=== PATIENT | female | born 1955 | race Caucasian/White ===

== ENCOUNTER 2022-01-25 13:40 | Outpatient (CLI) | payer BC, SELFPAY ==
--- NOTE | 2022-01-25 13:40 | CRLHL7_ITS ---
For Patients: As a result of the Century Cures Act, medical imaging exams and procedure reports are released immediately into your electronic medical record. You may view this report before your referring provider. If you have questions, please contact your health care provider. BILATERAL SCREENING MAMMOGRAM WITH COMPUTER-AIDED DETECTION AND TOMOSYNTHESIS TECHNIQUE: CC and MLO views were obtained. These mammographic images have been obtained using full-field digital technique. These mammographic images were interpreted with the benefit of computer-aided detection. Breast Tomosynthesis was used in this interpretation. COMPARISON FILM: 01/16/21, 03/12/18, 08/10/15. FINDINGS: There are scattered areas of fibroglandular density IMPRESSION: There is no radiographic evidence for malignancy. ASSESSMENT: BI-RADS Category 1: Negative RECOMMENDATION: Routine screening mammogram in 1 year. A lay language report of this examination will be provided to the patient. David Sam M.D. Diagnostic Radiologist [email or web address] JUDSON/Dictated by: David Sam MD @ 01/28/2022 1:12:00 PM (Electronically Signed)
--- OUTSIDE RECORDS SUMMARY | 2022-01-25 13:44 | XMS_ITS | Encounter Summary ---
:1955 Author Organization [facility] Address [address] [place] [address]. 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 Painter - 08/24/2010 6:51 PM CDT Patient Status - Diagnosis/Procedure right thyroid lobectomy - Physical status Stable (s/s of potential complications absent or manageable) - Psychosocial status Stable Discharge Planning - Discharge From: [facility] - Patient Care Unit: 5th floor - PCU - Discharge To: Home/Alternative home Discharge Information - Valuables returned Valuables returned - Discharge information Discharge instructions reviewed with pt/family/so - Accompanied by Spouse - Mode of Travel Wheelchair Medications and Prescriptions - Medications and Prescriptions sent to pharmacy Patient declined Prescriptions [place] script, sent back to pharmacy Support Services - Is home care No recommended? - Supplies sent/ordered No - Equipment No sent/ordered - Other Services No arranged Special Care Needs and Instructions - Diet Instructions: as tolerated - Activity as tolerated Instructions: - Report temp if 101 degrees F greater than: - Symptoms/Problems to 1. Swelling at incision site. look for at home- 2. Bleeding at incision site. call the physician 3. Warmth, fever, or tenderness at incision about: site. 4. A sore throat that continues beyond three weeks. 5. Tingling or cramps in the hands, feet, or lips (signs of a problem with the parathyroid glands). 6. If no bowel movement in 3 days try Milk of Magnesia, Fleets enema or another over the counter remedy. - Who patient should Dr. Alba call: - Phone number of [facility] [phone] patient should call: - Is patient going home No with IV Catheter?: Follow Up Care - Physician/clinician Dr. Alba name: - - When to see 2-3 weeks physician/clinician: - Physician/clinician Dr. Rosario name: - - When to see 4-6 weeks physician/clinician: Norma Franco (RN)[Signed 04:23] Authored: Patient Status, Discharge Planning, Discharge Information, Medications and Prescriptions, Support Services, Special Care Needs and Instructions, Follow Up Care EDUARD DE LEÓN (RN)[Signed 10:09] Authored: Patient Status, Discharge Information, Medications and Prescriptions, Special Care Needs and Instructions, Follow Up Care documented in this encounter Plan of Treatment Not on filedocumented as of this encounter Visit Diagnoses Not on filedocumented in this encounter Care Teams Senior Sous Chef Relationship Specialty Start Date End Date Eldon Conway MD PCP - General 07/24/01 02/15/18 [address] [place] [address] documented as of this encounter
--- OUTSIDE RECORDS SUMMARY | 2022-01-25 13:44 | XMS_ITS | Clinical Summary ---
:1955 Author Organization [facility] Address [address] [place] [address] Care Team Providers Name Role Phone Mariaelena Boland Primary Care Provider Allergies Active Allergy Reactions Severity Noted Date Comments No Known Drug Allergies 08/02/2010 Seasonal Allergies 01/31/2003 Medications Medication Sig Dispensed Refills Start Date End Date Status [id number] Nature's Bounty 0 07/10/2010 Active Calcium Plus D - 600mg/500IU. ONE Softgel cap daily. Multiple Vitamin Take 1 tablet 100 tablet 12 08/02/2010 Active (MULTIVITAMIN) per by mouth daily. tablet Bruin-3 Fatty Acids Take 1 capsule 180 capsule 12 08/02/2010 Active 1200 MG capsule by mouth daily. aspirin 81 MG chewable Take 1 tablet 90 tablet 3 07/20/2010 Active tablet by mouth daily. Coenzyme Q10 (COQ10) Take by mouth. 0 08/15/2010 Active 200 MG CAPS azithromycin Two tablets 6 tablet 0 10/22/2010 Acti ve (ZITHROMAX) 250 MG first day, then tabletIndications: one tablet Acute maxillary daily for four sinusitis days pravastatin (PRAVACHOL) Take 1 tablet 30 tablet 3 10/22/2010 Active 20 MG by mouth daily. tabletIndications: Hyperlipidemia LDL goal <160 Active Problems Problem Noted Date Advanced directives, counseling/discussion 10/22/2010 Seasonal allergic rhinitis 10/22/2010 Urine, incontinence, stress female 08/02/2010 Hyperlipidemia LDL goal <160 08/02/2010 Thyroid nodule 11/28/2009 Other symptoms referable to back 09/14/2007 Nonallopathic lesion of sacral region 09/14/2007 Overview: Problem list name updated by automated p rocess. Provider to review Nonallopathic lesion of lower extremities 09/14/2007 Overview: Problem list name updated by automated p rocess. Provider to review Pain in joint, pelvic region and thigh 09/14/2007 Resolved Problems Problem Noted Date Resolved Date CARDIOVASCULAR SCREENING; LDL GOAL LESS THAN 130 04/08/2010 08/02/2010 Encounters Date Type Specialty Care Team Description 11/03/2021 Hospital Encounter Radiology. Mariaelena Boland kaden lump 11/03/2021 Travel from Last 3 Months Immunizations Name Administration Dates Next Due COVID-19,PF,Moderna 12/29/2020, 12/01/2020 Influenza (High Dose) 3 valent 02/15/2021 vaccine Influenza Quad, Recombinant, pf(RIV4) 03/25/2020, 03/16/2019 , 03/12/2018, (Flublok) 04/11/2017 Pneumo Conj 13-V (2010&after) 02/13/2021 Pneumococcal 23 valent 10/25/2021 TD (ADULT, 7+) 12/23/2001 Zoster vaccine recombinant adjuvanted 11/19/2019, 06/14/2019 , 02/01/2016 (SHINGRIX) Family History Medical History Relation Comments Diabetes Father Heart Disease Father heart attack at 76 Alzheimer Disease Mother Depression Mother Osteoporosis Mother Heart Disease Paternal Grandfather heart attack early 50's Relation Status Comments Brother Alive half-brother Daughter Alive Father Maternal Grandfather Maternal Grandmother Mother Paternal Grandfather Paternal Grandmother Son 1 Alive Son 2 Alive Son 3 Alive step-child Social History Tobacco Use Types Packs/Day Years Used Date Never Smoker Smokeless Tobacco: Never Used Alcohol Use Standard Drinks/Week Comments Yes 0 (1 standard drink = 0.6 oz pure alcoho l) socially/rare Alcohol Habits Answer Date Recorded How often do you have a drink containing alcohol? Not asked How many drinks containing alcohol do you have on a Not aske d typical day when you are drinking? How often do you have six or more drinks on one occasion? No t asked Comment: socially/rare 08/02/2010 Sex Assigned at Date Recorded Not on file Last Filed Vital Signs Vital Sign Reading Time Taken Comments Blood Pressure 112/74 10/22/2010 8:37 AM CDT Pulse 81 10/22/2010 8:37 AM CDT Temperature 36.8 ??C (98.3 ??F) 10/22/2010 8:37 AM CDT Respiratory Rate 12 09/04/2010 1:41 PM CDT Oxygen Saturation 97% 10/22/2010 8:37 AM CDT Inhaled Oxygen Concentration - - Weight 64 kg (141 lb) 10/22/2010 8:37 AM CDT Height 157.5 cm (5' 2) 10/22/2010 8:37 AM CDT Body Mass Index 25.79 10/22/2010 8:37 AM CDT Plan of Treatment Health Maintenance Due Date Last Done Comments ANNUAL REVIEW OF HM ORDERS 1955 CT COLONOGRAPHY 1955 FIT-DNA (Cologuard) 1955 FIT 1955 FLEX SIG 1955 HEPATITIS C SCREENING 1973 MAMMO SCREENING 08/02/2012 08/02/2010, 08/02/2010, 09/06/2008, Additional history exists COLONOSCOPY 09/18/2015 09/17/2005 COLORECTAL CANCER SCREENING 09/18/2015 ADVANCE CARE PLANNING 10/23/2015 10/22/2010, 10/22/2010 LIPID 10/23/2015 10/22/2010, 08/02/2010, 11/24/2009, Additional history exists DEXA 02/02/2018 02/02/2003 FALL RISK ASSESSMENT 2020 MEDICARE ANNUAL WELLNESS 2020 08/02/2010, 04/14/2008, VISIT 07/08/2006, Additional history exists COVID-19 Vaccine (3 - 05/31/2021 12/29/2020, 12/29/2020, Booster for Moderna series) 12/01/2020, Addition al history exists PHQ-2 (once per calendar 06/09/2021 year) INFLUENZA VACCINE (#1) 2022 02/15/2021, 02/15/2021, 03/25/2020, Additional history exists DTAP/TDAP/TD IMMUNIZATION 03/26/2022 03/26/2012, 03/26/2012 , (3 - Td or Tdap) 12/23/2001 ZOSTER IMMUNIZATION Completed 11/19/2019, 11/19/2019, 06/14/2019, Additional history exists Pneumococcal Vaccine: 65+ Completed 10/25/2021, 02/13/2021 Years HEPATITIS B IMMUNIZATION Aged Out No long er eligible based on patient 's age to complete this topic IPV IMMUNIZATION Aged Out No longer eligi ble based on patient 's age to complete this topic MENINGITIS IMMUNIZATION Aged Out No longe r eligible based on patient 's age to complete this topic Procedures Procedure Name Priority Date/Time Associated Diagnosis Comme nts CT ABDOMEN PELVIS W Routine 11/03/2021 8:42 AM Abdominal lump Results for this CONTRAST CDT procedure are i n the results section. from Last [address] Abdomen Pelvis w Contrast (11/03/2021 8:42 AM CDT) Anatomical Region Laterality Modality Abdomen/Pelvis, SUBRAD CT BODY, UMP CT ABDOMEN PELVIS, Computed Tomography RAD CT Specimen (Source) Anatomical Collection Method Collection Time Re ceived Time Location / / Volume Laterality 11/03/2021 8:28 AM CDT Impressions 11/03/2021 8:57 AM CDT IMPRESSION: 1. ??Fat-containing ventral hernia above the umbilicus. 2. ??Large volume of retained colonic st ool suggestive of constipation. Narrative 11/03/2021 8:57 AM CDT EXAM: CT ABDOMEN AND PELVIS WITH CONTRAST LOCATION: [facility] DATE/TIME: 11/03/2021, 8:28 AM INDICATION: Abdominal lump. COMPARISON: None. TECHNIQUE: CT scan of the abdomen and pe lvis was performed following injection of IV contrast. Multiplanar reformats were obtained. Dose reduction techniques were used. CONTRAST: 85 mL Isovue 370. FINDINGS: LOWER CHEST: Normal. HEPATOBILIARY: Normal. PANCREAS: Normal. SPLEEN: Normal. ADRENAL GLANDS: Normal. KIDNEYS/BLADDER: No worrisome renal mass or hydronephrosis. BOWEL: Appendix not visualized. Large vo lume of retained colonic stool. No evidence of small bowel obstruction or free air. LYMPH NODES: Normal. VASCULATURE: Unremarkable. PELVIC ORGANS: The uterus is absent. MUSCULOSKELETAL: There is a fat-containi ng ventral hernia above the umbilicus with a 1 cm aperture (series 3, image 75). No destructive bone lesions. Procedure Note Odin Murrieta MD - 11/03/2021Forma tting of this note might be different from the original. EXAM: CT ABDOMEN AND PELVIS WITH CONTRAS T LOCATION: [facility] DATE/TIME: 11/03/2021, 8:28 AM INDICATION: Abdominal lump. COMPARISON: None. TECHNIQUE: CT scan of the abdomen and pe lvis was performed following injection of IV contrast. Multiplanar reformats were obtained. Dose reduction techniques were used. CONTRAST: 85 mL Isovue 370. FINDINGS: LOWER CHEST: Normal. HEPATOBILIARY: Normal. PANCREAS: Normal. SPLEEN: Normal. ADRENAL GLANDS: Normal. KIDNEYS/BLADDER: No worrisome renal mass or hydronephrosis. BOWEL: Appendix not visualized. Large vo lume of retained colonic stool. No evidence of small bowel obstruction or free air. LYMPH NODES: Normal. VASCULATURE: Unremarkable. PELVIC ORGANS: The uterus is absent. MUSCULOSKELETAL: There is a fat-containi ng ventral hernia above the umbilicus with a 1 cm aperture (series 3, image 75). No destructive bone lesions. IMPRESSION: 1. Fat-containing ventral hernia above t he umbilicus. 2. Large volume of retained colonic stoo l suggestive of constipation. 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 [address] [place] [id number]
--- OUTSIDE RECORDS SUMMARY | 2022-01-25 13:44 | XMS_ITS | Encounter Summary ---
:1955 Author Organization [facility] Address [address] [place] [address]. [place] [address] Care Team Providers Name Role Phone Mariaelena Boland Primary Care Provider Encounter Details Date Type Department Care Team Description 11/03/2021 Travel Social History Tobacco Use Types Packs/Day Years [...] Assigned at Date Recorded Not on file COVID-19 Exposure Response Date Recorded In the last 10 days, have you been in contact with No / Unsu re 11/03/2021 8:10 AM CDT someone who was confirmed or suspected to have Coronavirus/COVID-19? documented as of this encounter Plan of Treatment Not on filedocumented as of this encounter Visit Diagnoses Not on filedocumented in this encounter Care Teams Health Program Director Relationship Specialty Start Date End Date Mariaelena Boland PCP - General Internal Medicine 02/16/18 [facility] [address] [place] [address] documented as of this encounter
--- OUTSIDE RECORDS SUMMARY | 2022-01-25 13:44 | XMS_ITS | Encounter Summary ---
:1955 Author Organization [facility] Address [address] [place] [address] Care Team Providers Name Role Phone Eldon Conway MD Primary Care Provider Encounter Details Date Type Department Care Team Description 03/09/2010 Hospital Pathology [facility] Results [address] [place], [place] [address] (Wo rk) Social History Tobacco Use Types Packs/Day Years Used Date Never Smoker Alcohol Use Standard Drinks/Week Comments No 0 (1 standard drink = 0.6 oz pure alcoho l) Sex Assigned at Date Recorded Not on file documented as of this encounter Plan of Treatment Not on filedocumented as of this encounter Procedures Procedure Name Priority Date/Time Associated Diagnosis Comme nts CL AFF SURGICAL Routine 03/09/2010 12:00 AM Resul ts for this PATHOLOGY CDT procedure are i n the results section. documented in this encounter Results Hospital - SURGICAL PATHOLOGY (03/09/2010 12:00 AM CDT) Component Value Ref Test Analysis Performed At [facility] Range Method Time Signature Copath Patient Name: DANIELLE WALDROP COPATH Report MR#: [id number] Specimen #: [id number] Collected: 03/09/2010 Received: 03/09/2010 Reported: 03/12/2010 13:14 Ordering Phy(s): JANINE FISH SPECIMEN(S): Thyroid, lobectomy FINAL DIAGNOSIS: Thyroid lobe, right, raf-thyroidectomy - 1. ?Dominant adenomatoid/hyperplastic nodule. 2. ? No parathyroid tissue identified. 3. ? No evidence of malignancy. Electronically signed out by: Jacob Tang M.D. CLINICAL HISTORY: Atypical FNA. GROSS: The specimen is labeled right thyroid lobe, suture vasques zheng perior pole. ??It consists of an 8 gm thyroid lobe measuring 4.5 x 3 x 1.6 cm. The external surface is smooth. ??The medial paratracheal as pect is inked blue and the surrounding capsular margins are inked black. ? ?Sectioning revealed a mackey, well-circumscribed nodule which appears unen capsulated measuring 1.1 x 1 cm in the mid portion of the sample. ??No other lesions are identified. ??Block 1 - Frozen section registered representative of nodule; block 2 - isthmus margin; block 3 - remainder of nodule; blo ck 4 through 6 - Thyroid submitted from superior to inferior. ??MARITZA/eric INTRAOPERATIVE CONSULTATION: FROZEN SECTION DIAGNOSIS: Right thyroid lobe, hemithyroidectomy - Follicular lesion. ? ?MARITZA MICROSCOPIC: The follicular lesion does not show a well-developed or comp lete capsule and it is composed predominantly of macrofollicular structur es. ??One area within shows slight nuclear irregularity with rare nucl ear grooves, but no nuclear pseudoinclusions. ??These changes would corre late with the FNA findings. ??Features of papillary carcinoma are not iden tified. ??The findings are those of a dominant adenomatoid/hyperplastic no dule. MARITZA/eric 03-12-10 TESTING LAB LOCATION: [address] ??[id number] COLLECTION SITE: Client: [facility] Location: [facility] (R) Specimen (Source) Anatomical Collection Method Collection Time Re ceived Time Location / / Volume Laterality 03/09/2010 03/09/2010 11:0 8 AM CDT Janine Fish MD LABORATORY Performing Organization Address City/State/ZIP Code Phon e Number COPATH documented in this encounter Visit Diagnoses Not on filedocumented in this encounter Care Teams Drum Barker Operator Relationship Specialty Start Date End Date Eldon Conway MD PCP - General 07/24/01 02/15/[address] [facility] [address] documented as of this encounter
--- OUTSIDE RECORDS SUMMARY | 2022-01-25 13:44 | XMS_ITS | Encounter Summary ---
:1955 Author Organization [facility] Address [address] [place] [address]. [place] [address] Care Team Providers Name Role Phone Mariaelena Boland Primary Care Provider Encounter Details Date Type Department Care Team Description 04/08/2020 Travel Social History Tobacco Use Types Packs/Day [...] Exposure Response Date Recorded In the last month, have you been in contact with No / Unsure 04/08/2020 12:12 PM CDT someone who was confirmed or suspected to have Coronavirus / COVID-19? documented as of this encounter Plan of Treatment Not on filedocumented as of this encounter Visit Diagnoses Not on filedocumented in this encounter Care Teams Vertical Roll Operator Relationship Specialty Start Date End Date Mariaelena Boland PCP - General Internal Medicine 02/16/18 [facility] [address] [place] [address] documented as of this encounter
--- OUTSIDE RECORDS SUMMARY | 2022-01-25 13:44 | XMS_ITS | Encounter Summary ---
:1955 Author Organization [place] Address [address] [place] [address] Care Team Providers Name Role Phone Eldon Conway MD Primary Care Provider Reason for Visit Reason Comments RECHECK Encounter Details Date Type Department Care Team Description 04/17/2010 Office Visit [facility] Irma Rosario, Thyro id nodule; [facility] ENGINEERING SCIENTIST S/P partial thyroidectomy; [address] [facility] [address] [place], [place] [address], [address] [place] [address] (Wo rk) Social History Tobacco Use Types Packs/Day Years Used Date Never Smoker Alcohol Use Standard Drinks/Week Comments No 0 (1 standard drink = 0.6 oz pure alcoho l) Sex Assigned at Date Recorded Not on file documented as of this encounter Last Filed Vital Signs Vital Sign Reading Time Taken Comments Blood Pressure 132/76 04/17/2010 3:14 PM PORCELAIN ENAMELING SUPERVISOR Pulse 84 04/17/2010 3:14 PM PORCELAIN ENAMELING SUPERVISOR Temperature - - Respiratory Rate - - Oxygen Saturation - - Inhaled Oxygen Concentration - - Weight 62.1 kg (137 lb) 04/17/2010 3:14 PM PORCELAIN ENAMELING SUPERVISOR Height 156.2 cm (5' 1.5) 04/17/2010 3:14 PM PORCELAIN ENAMELING SUPERVISOR Body Mass Index 25.47 04/17/2010 3:14 PM PORCELAIN ENAMELING SUPERVISOR documented in this encounter Progress Notes Irma Rosario - 04/17/2010 3:17 PM CST Images from the original note were not included. HPI Endocrinology: [facility], [address] [facility] [place] [facility] [address], Ph. [phone] [facility], [facility] [place] [address], Danielle Waldrop is a 54 year old female who is here for follow up of post thyroidectomy 03-09-10 Consult was originally requested by : PCP: Eldon Conway MD Patient Complaints / concerns: none Medications related to Dx, and any side effects: stopped use of her progestin and testosterone creams in Jan. She had noted some excess hair over the summer and since stopping the creams that has gone away. She has also noted some vaginal dryness since stopping the creams. Another very interesting effect after going off the creams is that she find herself laughing much more. She is more giddy and if she has hot flush coming, she feels the laughter effect , and then as the hot flush goes away, then she is done laughing, and stops. Interim course: Post partial thyroidectomy. The pathology was reviewed. This does reveal some inflammatory changes. The microscopic evaluation shows: The follicular lesion does not show a well-developed or complete capsule and it is composed predominantly of macrofollicular structures. ??One area within shows slight nuclear irregularity with rare nuclear grooves, but no nuclear pseudoinclusions. ??These changes would correlate with the FNA findings. ??Features of papillary carcinoma are not identified. ??The findings are those of a dominant adenomatoid/hyperplastic nodule. Impression & PLAN / RECOMMENDATIONS: Assessment: Danielle Waldrop is a 54 year old female who was seen today for follow up consultation and evaluation of thyroid function post partial thyroidectomy. This is further complicated by prior use of progestin and testosterone creams, which she had stopped prior to the surgery, and wants to re-evaluate the levels of the other hormones now that she is off the creams. . Diagnoses for this visit: 241.0B Thyroid nodule V45.89QW S/P partial thyroidectomy 256.1N Hyperandrogenism and Orders Placed This Encounter ??? Comprehensive metabolic panel ??? Tsh ??? T4 free ??? Parathormone intact ??? Testosterone free and total ??? Estrogens total PLAN / Recommendations: 1. Labs as ordered. 2. Will respond as needed to changes noted in the labs. 3. SHE SHOULD HAVE FOLLOW UP THYROID U/S DONE IN ABOUT A YEAR OR EARLIER, GIVEN the NUCLEAR CHANGES. Follow up in 12 month(s), OR SOONER IF NEEDED. Future Issues to Review / Consider: Corresponding Action NA Spent 30 min with the patient in review of the treatment plan, DDX, potential outcomes, and side effects of meds as indicated. Answered questions in detail. ~~~~~~~~~~~~~~~~~~~~~~~~~~SUMMARY~~~~~~~~~~~~~~~~~~~~~~~~~~~~~~~~~~~~~~~~~ Review of Systems Constitutional: Positive for malaise/fatigue. Negative for diaphoresis. Eyes: Negative. Respiratory: Negative. Cardiovascular: Negative. Gastrointestinal: Negative for diarrhea and constipation. Musculoskeletal: Negative for myalgias. Skin: Negative for rash. Neurological: Negative for tremors and headaches. Psychiatric/Behavioral: Negative for depression. The patient is not nervous/anxious and does not have insomnia. Vital signs: BP 132/76 Pulse 84 Ht 1.562 m (5' 1.5) Wt 62.143 kg (137 lb) Estimated Body mass index is 25.47 kg/(m^2) as calculated from the following: Height as of this encounter: 5' 1.5(1.562 m). Weight as of this encounter: 137 lb(62.143 kg). Physical Exam Nursing note and vitals reviewed. Constitutional: She is well-developed, well-nourished, and in no distress. No distress. HENT: Head: Normocephalic and atraumatic. Eyes: Conjunctivae and extraocular motions are normal. Pupils are equal, round, and reactive to light. No scleral icterus. Neck: Normal range of motion. Neck supple. No tracheal deviation present. No thyromegaly present. Scar from thyroidectomy is healing well. No surrounding erythema, No drainage. Cardiovascular: Normal rate, regular rhythm and normal heart sounds. Exam reveals no gallop. No murmur heard. Pulmonary/Chest: Effort normal and breath sounds normal. She has no wheezes. She has no rales. Abdominal: Soft. Bowel sounds are normal. Musculoskeletal: Normal range of motion. She exhibits no edema and no tenderness. Lymphadenopathy: She has no cervical adenopathy. Neurological: She is alert. She has normal reflexes. She displays no tremor. Chvostek sign: Negative Skin: Skin is warm and dry. No rash noted. She is not diaphoretic. No erythema. Psychiatric: Mood and affect normal. Labs and Imaging Studies: Recent Labs Lab Test 01/02/10 1115 11/24/09 1106 04/14/08 1056 ??? TSH 0.88 1.01 0.77 ??? T4 0.96 1.10 -- ??? T3 83 -- -- For assessment, plan and RECOMMENDATIONS, please refer to summary section above, in the beginning ofnote. Irma Rosario MD [facility] (CC: No ref. provider found) (CC: Dr. Eldon Conway MD) ELAIN ENAMELING SUPERVISOR documented in this encounter Nursing Notes 04/17/2010 3:00 PM CST >> RENÉE Anthony Apr 17, 2010 3:17 PM Patient presents with: RECHECK initial BP 132/76 Pulse 84 Ht 1.562 m (5' 1.5) Wt 62.143 kg (137 lb) Estimated Body mass index is 25.47 kg/(m^2) as calculated from the following: Height as of this encounter: 5' 1.5(1.562 m). Weight as of this encounter: 137 lb(62.143 kg).. bp completed using cuff size regular RENÉE BLACK LPN documented in this encounter Plan of Treatment Not on filedocumented as of this encounter Procedures Procedure Name Priority Date/Time Associated Comments Diagnosis TSH Routine 04/17/2010 3:41 PM Thyroid nodul e Results for this PORCELAIN ENAMELING SUPERVISOR S/P partial procedure are i n thyroidectomy the results Hyperandrogenism section. TESTOSTERONE FREE AND Routine 04/17/2010 3:41 PM Thyroid nodule Results for this TOTAL PORCELAIN ENAMELING SUPERVISOR S/P partial procedure are i n thyroidectomy the results Hyperandrogenism section. T4 FREE Routine 04/17/2010 3:41 PM Thyroid nodul e Results for this PORCELAIN ENAMELING SUPERVISOR S/P partial procedure are i n thyroidectomy the results Hyperandrogenism section. PARATHYROID HORMONE Routine 04/17/2010 3:41 PM Thyroid n odule Results for this INTACT PORCELAIN ENAMELING SUPERVISOR S/P partial procedure are i n thyroidectomy the results Hyperandrogenism section. ESTROGENS TOTAL Routine 04/17/2010 3:41 PM Thyroid nodul e Results for this PORCELAIN ENAMELING SUPERVISOR S/P partial procedure are i n thyroidectomy the results Hyperandrogenism section. COMPREHENSIVE Routine 04/17/2010 3:41 PM Thyroid nodul e Results for this METABOLIC PANEL PORCELAIN ENAMELING SUPERVISOR S/P partial procedure ar e in thyroidectomy the results Hyperandrogenism section. documented in this encounter Results Estrogens total (04/17/2010 3:41 PM PORCELAIN ENAMELING SUPERVISOR) Analysis Performed At [facility] logist Time Signature Lab Scanned ESTROGENS, [facility] Result TOTAL-Scan clint Specimen Anatomical Collection Method Collection Time Receive d Time (Source) Location / / Volume Laterality Blood specimen 04/17/2010 3:41 PM 010 3:46 (specimen) PORCELAIN ENAMELING SUPERVISOR PM PORCELAIN ENAMELING SUPERVISOR Irma Rosario NP LAB - BLOOD ORDERABLES Performing Organization Address City/State/ZIP Code Phon e Number [place] (ABNORMAL) Testosterone free and total (04/17/2010 3:41 PM PORCELAIN ENAMELING SUPERVISOR) Component Value Ref Test Analysis Performed At [facility] gist Range Method Time Signature Percent 1.8 1.0 - [facility] Testosterone 3.8 % [facility] LABS Testosterone <10 (L) 14 - 75 [facility] Total ng/dL [facility] Testosterone Unable to calculate due to low value 0.1 - [facility] Free Total testosterone is less than 10 ng/dL. 1.5 [place] ng/dL [place] LAB[facility] Specimen Anatomical Collection Method Collection Time Receive d Time (Source) Location / / Volume Laterality Blood specimen 04/17/2010 3:41 PM 010 3:46 (specimen) PORCELAIN ENAMELING SUPERVISOR PM PORCELAIN ENAMELING SUPERVISOR Irma Rosario NP LAB - BLOOD ORDERABLES Performing Organization Address City/[facility]/ZIP Code Phon e Number [facility] [address] [place], [place] [id number] [place] [address] LABS Parathormone intact (04/17/2010 3:41 PM PORCELAIN ENAMELING SUPERVISOR) athologist Signature Parathyroid 38 12 - 72 [facility] Hormone Intact pg/mL [facility] LABS Specimen Anatomical Collection Method Collection Time Receive d Time (Source) Location / / Volume Laterality Blood specimen 04/17/2010 3:41 PM 010 3:46 (specimen) PORCELAIN ENAMELING SUPERVISOR PM PORCELAIN ENAMELING SUPERVISOR Irma Rosario NP LAB - BLOOD ORDERABLES Performing Organization Address City/[facility]/ZIP Code Phon e Number [facility] [address] [place], [place] [address] [place] [address] LABS T4 FREE (04/17/2010 3:41 PM PORCELAIN ENAMELING SUPERVISOR) athologist Signature T4 Free 0.95 0.70 - 1.85 [place] [facility] ng/dL CLINIC LAB Specimen Anatomical Collection Method Collection Time Receive d Time (Source) Location / / Volume Laterality Blood specimen 04/17/2010 3:41 PM 010 3:46 (specimen) PORCELAIN ENAMELING SUPERVISOR PM PORCELAIN ENAMELING SUPERVISOR Irma Rosario NP LAB - BLOOD ORDERABLES Performing Organization Address City/[facility]/ZIP Code Phon e Number [facility] [address] [place] [address] [facility] TSH (04/17/2010 3:41 PM PORCELAIN ENAMELING SUPERVISOR) athologist Signature TSH 1.92 0.4 - 5.0 [facility] mU/L CLINIC LAB Specimen Anatomical Collection Method Collection Time Receive d Time (Source) Location / / Volume Laterality Blood specimen 04/17/2010 3:41 PM 010 3:46 (specimen) PORCELAIN ENAMELING SUPERVISOR PM PORCELAIN ENAMELING SUPERVISOR Irma Rosario NP LAB - BLOOD ORDERABLES Performing Organization Address City/[facility]/ZIP Code Phon e Number [facility] [address] [place] [address] [facility] (ABNORMAL) Comprehensive metabolic panel (04/17/2010 3:41 PM PORCELAIN ENAMELING SUPERVISOR) P athologist Signature Sodium 147 (H) 133 - 144 [place] mmol/L [facility] LAB Potassium 3.9 3.4 - 5.3 [place] mmol/L [facility] LAB Chloride 105 94 - 109 [place] mmol/L [facility] LAB Carbon Dioxide 27 20 - 32 [place] mmol/L [facility] LAB Anion Gap 14 6 - 17 [place] mmol/L [facility] Glucose 91 60 - 99 [place] mg/dL [facility] LAB Urea Nitrogen 16 7 - 30 [place] mg/dL [facility] Creatinine 0.69 0.52 - [place] 1.04 mg/dL [facility] LAB Comment: New IDMS-traceable calibration beginning 10/08/07 GFR Estimate 89 >60 mL/min/1.7m2 [place] [facility] GFR Estimate If Black >90 >60 mL/min/1.7m2 F [facility] LAB Calcium 9.6 8.5 - 10.4 mg/dL [facility] Bilirubin Total 0.4 0.2 - 1.3 mg/dL [facility] LAB Albumin 4.7 3.9 - 5.1 g/dL [facility] Comment: Reference range changed on 02/08. Protein Total 7.7 6.8 - 8.8 g/dL [facility] Comment: As of 07, reference range reflects plasma specimen type. Alkaline Phosphatase 65 40 - 150 U/L [facility] ALT 31 0 - 50 U/L [place] [facility] LAB AST 27 0 - 45 U/L [facility] CLIN IC LAB Specimen Anatomical Collection Method Collection Time Receive d Time (Source) Location / / Volume Laterality Blood specimen 04/17/2010 3:41 PM 010 3:46 (specimen) PORCELAIN ENAMELING SUPERVISOR PM PORCELAIN ENAMELING SUPERVISOR Irma Rosario NP LAB - BLOOD ORDERABLES Performing Organization Address City/State/ZIP Code Phon e Number [facility] [address] [place] [address] [facility] LAB documented in this encounter Visit Diagnoses Diagnosis Thyroid nodule Nontoxic uninodular goiter S/P partial thyroidectomy Other postprocedural status Hyperandrogenism Other ovarian hyperfunction documented in this encounter Care Teams Virtual Office Assistant Relationship Specialty Start Date End Date Eldon Conway MD PCP - General 07/24/01 02/15/18 [address] [place] [address] documented as of this encounter
--- OUTSIDE RECORDS SUMMARY | 2022-01-25 13:44 | XMS_ITS | Encounter Summary ---
:[address] [place] Address [address] [place] [address] Care Team Providers Name Role Phone Eldon Conway MD Primary Care Provider Reason for Referral Specialty Diagnoses / Procedures Referred By Contact Refer red To Contact Jim Goins MD [facility] [address] [place] [address] Fax: Referral ID Status Reason Start Date Expiration Date Visits Requ ested Visits Authorized Reason for Visit Reason Comments Recheck Medication Cholesterol meds - FASTING Sinus Problem sinus drainage, facial/sinus pain Encounter Details Date Type Department Care Team Description 10/22/2010 Office Visit [facility] Erika Goins irenayes, counseling/discussion (Primary Dx); [facility] [place] MD Michelle Hyperlipidemia LDL goal <160; [address] [facility] Acute maxillary sinusitis; [place], [place] [employer] Seasonal allergic rhinitis [phone] [phone] [place] [address] (Wo rk) Social History Tobacco Use Types [...] ??F) 10/22/2010 8:37 AM CDT Respiratory Rate - - Oxygen Saturation 97% 10/22/2010 8:37 AM CDT Inhaled Oxygen Concentration - - Weight 64 kg (141 lb) 10/22/2010 8:37 AM CDT Height 157.5 cm (5' 2) 10/22/2010 8:37 AM CDT Body Mass Index 25.79 10/22/2010 8:37 AM CDT documented in this encounter Progress Notes Michelle Goins - 10/22/2010 8:58 AM CDT SUBJECTIVE: Danielle Waldrop is a 55 year old female is here for follow up of hyperlipidemia. Pt is on Zocor 20 mg , pt was started on Zocor 20 mg in 07/2010, symptoms of mood swings, sad, crying with medication. Pt did not have symptoms before starting Zocor. Pt has sinus pressure, PND, cough with phlegm yellow in Colour. Pt has cold with yellow nasal drainage. No sob or wheezing. s sinus symptoms . Pt ahs seasonal allergies, not taking any medications. OBJECTIVE: BP 112/74 Pulse 81 Temp(Src) 98.3 ??F (36.8 ??C) (Oral) Ht 5' 2 (1.575 m) Wt 141 lb (63.957kg) BMI 25.79 kg/m2 SpO2 97% HEENT:PERRL, ENT exam shows tender on both maxillary sinuses , normal exam of ears NECK: supple, no enlarged thyroid LUNGS: CTA CVS: S1S2 regular, no murmurs ABD: soft, normal BS, NT ETM: Pulses+, no edema ASSESSMENT/PLAN : V65.49J Advanced directives, counseling/discussion (primary encounter diagnosis) Plan: [facility] REFERRAL 272.4CY Hyperlipidemia LDL goal <160 Comment: pt is fasting today Plan: Lipid panel reflex to direct LDL, ALT, AST Pt had allergy with Zocor causing mood swings Will change to PRAVACHOL 461.0 Acute maxillary sinusitis Plan: azithromycin (ZITHROMAX) 250 MG tablet Fluids, humidifier, vicks vapourizer, sudafed, motrin prn, rest 477.9A Seasonal allergic rhinitis Comment: not well controlleld Plan: Trial of go/claritin for allergies. Follow up in 3 months for hyperlipidemia documented in this encounter Nursing Notes 10/22/2010 8:30 AM CDT >> IVETTE BLANKENSHIP Mon October 22, 2010 8:42 AM Patient presents with: Recheck Medication - Cholesterol meds - FASTING Sinus Problem - sinus drainage, facial/sinus pain Initial BP 112/74 Pulse 81 Temp(Src) 98.3 ??F (36.8 ??C) (Oral) Ht 5' 2 (1.575 m) Wt 141 lb(63.957 kg) BMI 25.79 kg/m2 SpO2 97% Estimated Body mass index is 25.79 kg/(m^2) as calculated from the following: Height as of this encounter: 5' 2(1.575 m). Weight as of this encounter: 141 lb(63.957 kg). BP completed using cuff size regular Ivette Blankenship/BYRON documented in this encounter Plan of Treatment Scheduled Referrals Name Type Priority Associated Diagnoses Order S chedule [facility] Referral Routine Advanced directives, Ord ered: 10/22/2010 REFERRAL counseling/discussion documented as of this encounter Procedures Procedure Name Priority Date/Time Associated Diagnosis Comme nts LIPID REFLEX TO Routine 10/22/2010 9:10 AM Hyperlipidemia LDL goal Results for this DIRECT LDL PANEL CDT <160 procedure a re in the results section. AST Routine 10/22/2010 9:10 AM Hyperlipidemia LDL goa l Results for this CDT <160 procedure are i n the results section. ALT Routine 10/22/2010 9:10 AM Hyperlipidemia LDL goa l Results for this CDT <160 procedure are i n the results section. documented in this encounter Results AST (10/22/2010 9:10 AM CDT) athologist Signature AST 39 0 - 45 U/L [facility] Specimen Anatomical Collection Method Collection Time Receive d Time (Source) Location / / Volume Laterality Blood specimen 10/22/2010 9:10 AM 011 9:12 (specimen) CDT AM CDT Michelle Goins MD LAB - BLOOD ORDERABLES Performing Organization Address City/[facility] Phon e Number [facility] [address] [place] [address] [facility] ALT (10/22/2010 9:10 AM CDT) athologist Signature ALT 45 0 - 50 U/L [facility] Specimen Anatomical Collection Method Collection Time Receive d Time (Source) Location / / Volume Laterality Blood specimen 10/22/2010 9:10 AM 011 9:12 (specimen) CDT AM CDT Michelle Goins MD LAB - BLOOD ORDERABLES Performing Organization Address City/[facility] Phon e Number [facility] [address] [place] [address] [facility] (ABNORMAL) Lipid panel reflex to direct LDL (10/22/2010 9:10 AM CDT) athologist Signature Cholesterol 253 (H) 0 - 200 [facility] mg/dL CLINIC LAB Comment: LDL Cholesterol is the primary guide to therapy. The NCEP recommends further evaluation of: patients with cholesterol greater than 200 mg/dL if additional risk facto rs are present, cholesterol greater than 240 mg/dL, triglycerides greater than 1 50 mg/dL, or HDL less than 40 mg/dL. Triglycerides 120 0 - 150 mg/dL [facility] HDL Cholesterol 72 50 - 110 mg/dL [facility] LDL Cholesterol Calculated 157 (H) 0 - 129 mg/dL [facility] Comment: LDL Cholesterol is the primary guide to therapy: LDL-cholesterol goal in high risk patients is <100 mg/dL and in very high risk patients is <70 mg/dL. VLDL-Cholesterol 24 0 - 30 mg/dL [facility] Cholesterol/HDL Ratio 3.5 0.0 - 5.0 [facility] Specimen Anatomical Collection Method Collection Time Receive d Time (Source) Location / / Volume Laterality Blood specimen 10/22/2010 9:10 AM 011 9:12 (specimen) CDT AM CDT Michelle Goins MD LAB - BLOOD ORDERABLES Performing Organization Address City/State/ZIP Code Phon e Number [facility] [address] [place] [address] [facility] documented in this encounter Visit Diagnoses Diagnosis Advanced directives, counseling/discussi on - Primary Other specified counseling Hyperlipidemia LDL goal <160 Other and unspecified hyperlipidemia Acute maxillary sinusitis Seasonal allergic rhinitis Allergic rhinitis, cause unspecified documented in this encounter Care Teams Trash Hauler Relationship Specialty Start Date End Date Eldon Conway MD PCP - General 07/24/01 02/15/18 [address] [place] [address] documented as of this encounter
--- OUTSIDE RECORDS SUMMARY | 2022-01-25 13:44 | XMS_ITS | Encounter Summary ---
:1955 Author Organization [place] Address [address] [place] [address]. [place] [address] Care Team Providers Name Role Phone Mariaelena Boland Primary Care Provider Reason for Visit Diagnostic Imaging Mammo - Closed Specialty Diagnoses / Procedures Referred By Contact Refer red To Contact Radiology. Diagnoses Visit for screening mammogram [facility] Procedures MA Screening Digital Bilateral [facility] [address] [facility] [address] [place] [address] [place] [address] Phone: Fax: Referral ID Status Reason Start Date Expiration Date Visits Requ ested Visits Authorized [id number] Closed 02/16/2018 02/16/2019 1 1 Encounter Details Date Type Department Care Team Description 02/20/2018 Hospital Encounter [facility] AdrianneFiona (Patient) [facility] Mariaelena [address] [place] [address] [place], [place] [address] [facility] [address] [place], [place] [phone] [address] Social History Tobacco Use Types Packs/Day Years [...] on file documented as of this encounter Medications at Time of Discharge Medication Sig Dispensed Refills Start Date End Date aspirin 81 MG chewable Take 1 tablet by 90 tablet 3 011 tablet mouth daily. azithromycin (ZITHROMAX) Two tablets first 6 tablet 0 10/07 250 MG tabletIndications: day, then one Acute maxillary sinusitis tablet daily for four days Coenzyme Q10 (COQ10) 200 Take by mouth. 0 011 MG CAPS Multiple Vitamin Take 1 tablet by 100 tablet 12 08/02/2010 (MULTIVITAMIN) per tablet mouth daily. Oriska-3 Fatty Acids 1200 Take 1 capsule by 180 capsule 12 MG capsule mouth daily. [id number] Nature's Bounty 0 07/10/2010 Calcium Plus D - 600mg/500IU. ONE Softgel cap daily. pravastatin (PRAVACHOL) 20 Take 1 tablet by 30 tablet 3 MG tabletIndications: mouth daily. Hyperlipidemia LDL goal <160 documented as of this encounter Plan of Treatment Not on filedocumented as of this encounter Visit Diagnoses Not on filedocumented in this encounter Care Teams Assistant Brand Manager Relationship Specialty Start Date End Date Mariaelena Boland PCP - General Internal Medicine 02/16/18 [facility] [address] [place] [address] documented as of this encounter
--- OUTSIDE RECORDS SUMMARY | 2022-01-25 13:44 | XMS_ITS | Encounter Summary ---
:1955 Author Organization [place] Address [address] [place] [address]. [place] [address] Care Team Providers Name Role Phone Mariaelena Boland Primary Care Provider Encounter Details Date Type Department Care Team Description 06/05/2020 Travel Social History Tobacco Use Types Packs/Day [...] been in contact with No / Unsure 06/05/2020 6:33 AM PHOTORESIST CONTACT PRINTER someone who was confirmed or suspected to have Coronavirus / COVID-19? documented as of this encounter Plan of Treatment Not on filedocumented as of this encounter Visit Diagnoses Not on filedocumented in this encounter Care Teams General Handling Supervisor Relationship Specialty Start Date End Date Mariaelena Boland PCP - General Internal Medicine 02/16/18 [facility] [address] [place] [address] documented as of this encounter
--- OUTSIDE RECORDS SUMMARY | 2022-01-25 13:44 | XMS_ITS | Encounter Summary ---
:1955 Author Organization [facility] Address [address] [place] [address] Care Team Providers Name Role Phone Eldon Conway MD Primary Care Provider Reason for Visit Reason Comments Edema bilateral hand swelling and finger joint pain x 1 month, burning sensation in right palm, trigger finger right hand, 4th digit with shooting pain, and dropping things x 3 months Encounter Details Date Type Department Care Team Description 09/04/2010 Office Visit [facility] [place], Stiffness of joint, hand; Clinic [place] MD Michelle Trigger finger [address] [place], [place] [phone] [address] [phone] [address] [facility] [address] [place] [address] (Wo rk) Social History Tobacco Use Types [...] Sign Reading Time Taken Comments Blood Pressure 115/80 09/04/2010 1:41 PM CDT Pulse 87 09/04/2010 1:41 PM CDT Temperature 36.7 ??C (98.1 ??F) 09/04/2010 1:41 PM CDT Respiratory Rate 12 09/04/2010 1:41 PM CDT Oxygen Saturation 98% 09/04/2010 1:41 PM CDT Inhaled Oxygen Concentration - - Weight 62.6 kg (138 lb) 09/04/2010 1:41 PM CDT Height 156.2 cm (5' 1.5) 09/04/2010 1:41 PM CDT Body Mass Index 25.65 09/04/2010 1:41 PM CDT documented in this encounter Progress Notes Michelle Goins - 09/04/2010 2:22 PM CDT SUBJECTIVE: Danielle Waldrop is a 55 year old female is here for rt hand tightness, burning in palm, finger joint pains , worse in am , symptoms improve as day goes. Pain is still persistent in rt hand ring finger. Pt cannot hold pencil, drops things of/on since last 3 months. Pt feels stiffness & tightness in rt hand. Pt usually can lift heavy weights at work with rt hand. Pt has swelling & pain in bothhand joints in am, rt > Lt OBJECTIVE: BP 115/80 Pulse 87 Temp(Src) 98.1 ??F (36.7 ??C) (Oral) Resp 12 Ht 5' 1.5 (1.562 m) Wt 138 lb (62.596 kg) BMI 25.65 kg/m2 SpO2 98% ETM: normal exam of finger joints, no swelling rt hand , there is tenderness base of ring finger in the tendon area of rt hand palm. Normal hand charge authorizer. Normal strength. SKIN: Normal exam NEURO: Normal exam With [place] filament. Normal strength ASSESSMENT/PLAN : 719.54F Stiffness of joint, hand Comment: Rt hand . R/o OA, RA Plan: Erythrocyte sedimentation rate auto, Rheumatoid factor, Antinuclear antibody screen by EIA, X-ray rt Hand G/E 3 vws* Negative x-ray . NSAIDS prn If labs negative. Consider Rheumatology referral if symptoms worsen 727.03B Trigger finger Comment: Rt hand ring finger Plan: X-ray rt Hand G/E 3 vws* Negative x-ray. Consider referral to hand surgeon if symptoms worse follow up if symptoms get worse documented in this encounter Nursing Notes 09/04/2010 1:45 PM CDT >> MALIHA Anthony Sep 04, 2010 1:47 PM Patient presents with: Edema - bilateral hand swelling and finger joint pain x 1 month, burning sensation in right palm, trigger finger right hand, 4th digit with shooting pain, and dropping things x 3 months Initial BP 115/80 Pulse 87 Temp(Src) 98.1 ??F (36.7 ??C) (Oral) Resp 12 Ht 5' 1.5 (1.562 m) Wt 138 lb (62.596 kg) BMI 25.65 kg/m2 SpO2 98% Estimated Body mass index is 25.65 kg/(m^2) as calculated from the following: Height as of this encounter: 5' 1.5(1.562 m). Weight as of this encounter: 138 lb(62.596 kg).. BP completed using cuff size: regular. Maliha Oreilly CMA documented in this encounter Plan of Treatment Not on filedocumented as of this encounter Procedures Procedure Name Priority Date/Time Associated Comments Diagnosis XR HAND RIGHT G/E 3 Routine 09/04/2010 2:29 PM Trigger f audi Results for this VIEWS CDT Stiffness of joint, procedur e are in hand the results section. RHEUMATOID FACTOR Routine 09/04/2010 2:24 PM Stiffness of join t, Results for this CDT hand procedure are i n the results section. ERYTHROCYTE Routine 09/04/2010 2:24 PM Stiffness of joint, Re sults for this SEDIMENTATION RATE CDT hand procedure are in AUTO the results section. ANTINUCLEAR ANTIBODY Routine 09/04/2010 2:24 PM Stiffness of j oint, Results for this SCREEN BY EIA CDT hand procedure are in the results section. documented in this encounter Results X-ray rt Hand G/E 3 vws* (09/04/2010 2:29 PM CDT) Anatomical Region Laterality Modality Hand, Wrist Right Other Specimen (Source) Anatomical Collection Method Collection Time Re ceived Time Location / / Volume Laterality 09/04/2010 2:29 PM CDT Impressions 09/04/2010 2:48 PM CDT HAND G/E 3 VIEWS RIGHT* ??Sep 04, 2010 2 :29:00 PM HISTORY: ??Stiffness. Trigger finger. COMPARISON: ??None. FINDINGS: ??Negative. Michelle Goins MD IMG DIAGNOSTIC IMAGING ORDER CONSTANZA Antinuclear antibody screen by EIA (09/04/2010 2:24 PM CDT) Patholo gist Method Time Signature [place] Screen by <1.0 <1.0 [facility] EIA Interpretation: ??Negative [facility] Specimen Anatomical Collection Method Collection Time Receive d Time (Source) Location / / Volume Laterality Blood specimen 09/04/2010 2:24 PM 011 2:29 (specimen) CDT PM CDT Michelle Goins MD LAB - BLOOD ORDERABLES Performing Organization Address City/[facility]/ZIP Code Phon e Number [facility] [address] LABS Rheumatoid factor (09/04/2010 2:24 PM CDT) P athologist Signature Rheumatoid 10 0 - 14 [facility] Factor IU/mL CAMPUS LABS Specimen Anatomical Collection Method Collection Time Receive d Time (Source) Location / / Volume Laterality Blood specimen 09/04/2010 2:24 PM 011 2:29 (specimen) CDT PM CDT Michelle Goins MD LAB - BLOOD ORDERABLES Performing Organization Address City/[facility]/ZIP Code Phon e Number [facility] [address] LABS Erythrocyte sedimentation rate auto (09/04/2010 2:24 PM CDT) P athologist Signature Sed Rate 10 0 - 30 mm/h [facility] LAB Specimen Anatomical Collection Method Collection Time Receive d Time (Source) Location / / Volume Laterality Blood specimen 09/04/2010 2:24 PM 011 2:29 (specimen) CDT PM CDT Michelle Goins MD LAB - BLOOD ORDERABLES Performing Organization Address City/[facility]/ZIP Code Phon e Number [facility] [id number] [place] [address] [facility] LAB documented in this encounter Visit Diagnoses Diagnosis Stiffness of joint, hand Stiffness of joint, not elsewhere classi fied, hand Trigger finger Trigger finger (acquired) documented in this encounter Care Teams Race Car Mechanic Relationship Specialty Start Date End Date Eldon Conway MD PCP - General 07/24/01 02/15/18 [address] [place] [address] documented as of this encounter
--- OUTSIDE RECORDS SUMMARY | 2022-01-25 13:44 | XMS_ITS | Encounter Summary ---
:1955 Author Organization [facility] Address [address] [place] [address] Care Team Providers Name Role Phone Eldon Conway MD Primary Care Provider Reason for Visit Reason Comments Urinary Problem stress incont Encounter Details Date Type Department Care Team Description 09/19/2010 Office Visit [facility] for Oseas Pierson, Urine, incontinence, Bladder Control - MD stress female [address] (Primary Dx) [address] [place] [address] (Wo rk) [phone] Social History Tobacco Use Types Packs/Day Years [...] Sign Reading Time Taken Comments Blood Pressure 136/80 09/19/2010 2:09 PM CDT Pulse 80 09/19/2010 2:09 PM CDT Temperature - - Respiratory Rate - - Oxygen Saturation - - Inhaled Oxygen Concentration - - Weight - - Height - - Body Mass Index - - documented in this encounter Progress Notes Oseas Pierson - 09/19/2010 2:57 PM CDT Danielle Waldrop is a 55 year old female for incont. Consult from Dr Escamilla. Onset of incont many yrs ago with 3 vag deliveries, had hyster 1993, persistent incont, seen by about 10 yrs ago, was told that things had stretched and recommended surgery; pt was not ready for surgery at that point, tried Kegel's and electric kegel's with no signif improvement. Now leaks with activity, has caused her to stop running. No pad unless she exercises. Voids q hr to minimize incont. Dry at nite with occais nocturia. No signif UTI's. Not on HRT. Daily BM. Moderate fluids, mostly tea but one bag gets 6 glasses. Works in [employer], Past Surgical History Procedure Date ??? C nonspecific procedure 1997 partial hysterectomy ??? Colonoscopy completed in 2005 ??? Telesales Representative surgery 1997 Partial Hysterectomy because of prolapsed uterus. ??? Ent surgery 03/09/10 Thyroidectomy; Right half removed. Past Medical History Diagnosis Date ??? MEDICAL HISTORY OF - POLYSONSOGRAPHY NEG IN ??? Thyroid nodule 11/2009 s/p biopsy shows atypia Current outpatient prescriptions:Coenzyme Q10 (COQ10) 200 MG CAPS, Take by mouth., Disp: , Rfl: ; simvastatin (ZOCOR) 20 MG tablet, Take 1 tablet by mouth At Bedtime., Disp: 90 tablet, Rfl: 3; [id number], Nature's Bounty Calcium Plus D - 600mg/500IU. ONE Softgel cap daily., Disp: , Rfl: ; Multiple Vitamin (MULTIVITAMIN) per tablet, Take 1 tablet by mouth daily., Disp: 100 tablet, Rfl: 12 [place]-3 Fatty Acids 1200 MG capsule, Take 1 capsule by mouth daily., Disp: 180 capsule, Rfl: 12; aspirin 81 MG chewable tablet, Take 1 tablet by mouth daily., Disp: 90 tablet, Rfl: 3 Physical Exam: GENL: NAD. ABD: Soft, non-tender, no masses. EG: Well-estrogenized, no masses. VAGINA: Well-estrogenized, no masses. BN HYPERMOBILITY: Moderate. CYSTOCELE: Minimal. APICAL PROLAPSE: None. RECTOCELE: Minimal. BIMANUAL: No mass or tenderness. Cysto: (Informed consent obtained. Pause for cause performed) PVR: Nil MUCOSA: Normal without lesion ORIFICES: Normal location and morphology CAPACITY: 400 cc; no pain with filling Valsalva: Mild hypermobility, mild leakage noted. Results for orders placed in visit on 09/19/10 URINE MACROSCOPIC ONLY Component Value Range ??? Color Urine Yellow ??? Appearance Urine Clear ? ? Glucose Urine Negative > NEG (mg/dL) ? ? Bilirubin Urine Negative > NEG ? ? Ketones Urine Negative > NEG (mg/dL) ? ? Specific [place] Urine <=1.005 1.003 - 1.035 ? ? Blood Urine Trace (*) > NEG ??? pH Urine 6.0 5.0 - 7.0 (pH) ? ? Protein Albumin Urine Negative > NEG (mg/dL) ??? Urobilinogen Urine 0.2 0.2 - 1.0 (EU/dL) ? ? Nitrite Urine Negative > NEG ? ? Leukocyte Esterase Urine Trace (*) > NEG ??? Source Midstream Urine IMP: 1. Mixed UI, hypermobility, very bothersome 2. S/p hyster 3. Very healthy PLAN: 1. Discussed situation with patient in detail. 2. SLING DISCUSSION: We discussed the patients situation in detail including her specific anatomy and conditions. Diagrams are drawn. We discussed the surgical treatment including pubovaginal sling utilizing mesh material. We addressed the technical aspects of the procedure as well as the potential risks and complications incuding, but not limited to bleeding, infection, damage to organs or other injury. We discussed the recovery process and the potential effect on sexual function in detail. She also understands the alternative forms of therapy (including no therapy and treatment without mesh), and the potential need for additional therapy. We discussed the FDA report on the use of surgical mesh. All questions are answered in detail. Informed consent is obtained. Consent form signed. Handout given. 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 3. UDS prior 4. Sixty minutes spent with patient, more than 50% in counseling and coordination of care. 5. Copy Dr Conway documented in this encounter Plan of Treatment Not on filedocumented as of this encounter Procedures Procedure Name Priority Date/Time Associated Comments Diagnosis URINE MACROSCOPIC Routine 09/19/2010 2:05 PM Urine, Resu lts for this ONLY CDT incontinence, procedure are in stress female the results section. documented in this encounter Results (ABNORMAL) Urine macroscopic only (09/19/2010 2:05 PM CDT) [facility] Method Time Signature Color Urine Yellow [facility] Appearance Urine Clear [facility] Glucose Urine Negative NEG mg/dL [facility] Bilirubin Urine Negative NEG [facility] Ketones Urine Negative NEG mg/dL [facility] Specific [place] <=1.005 1.003 - [place] Urine 1.035 [facility] Blood Urine Trace (A) NEG [facility] pH Urine 6.0 5.0 - 7.0 [place] pH [facility] Protein Albumin Negative NEG mg/dL [place] Urine [facility] Urobilinogen 0.2 0.2 - 1.0 [place] Urine EU/dL [facility] Nitrite Urine Negative NEG [facility] Leukocyte Trace (A) NEG [place] Esterase Urine [facility] Source Midstream [place] Urine [facility] Specimen Anatomical Collection Method Collection Time Receive d Time (Source) Location / / Volume Laterality Urine specimen 09/19/2010 2:05 PM 011 2:06 (specimen) CDT PM CDT Oseas Pierson MD LAB - URINE ORDERABLES Performing Organization Address City/State/ZIP Code Phon e Number [facility] documented in this encounter Visit Diagnoses Diagnosis Urine, incontinence, stress female - Kristal julián Female stress incontinence documented in this encounter Care Teams Sales And Training Specialist Relationship Specialty Start Date End Date Eldon Conway MD PCP - General 07/24/01 02/15/18 [address] [place] [address] documented as of this encounter
--- OUTSIDE RECORDS SUMMARY | 2022-01-25 13:44 | XMS_ITS | Encounter Summary ---
:1955 Author Organization [facility] Address [address] [place] [address] Care Team Providers Name Role Phone Eldon Conway MD Primary Care Provider Reason for Visit Reason Comments Pre-Op Exam EKG done 11/24/09. Pre Visit Planning - Done Encounter Details Date Type Department Care Team Description 03/05/2010 Office Visit [facility] [place] Preop Gene ral Physical Exam (Primary Dx); Clinic [place] MD Michelle Screening Mammogram [address] [place], [place] [phone] [place] [address] (Wo rk) Social History Tobacco Use Types Packs/Day Years Used Date Never Smoker Alcohol Use Standard Drinks/Week Comments No 0 (1 standard drink = 0.6 oz pure alcoho l) Sex Assigned at Date Recorded Not on file documented as of this encounter Last Filed Vital Signs Vital Sign Reading Time Taken Comments Blood Pressure 96/60 03/05/2010 10:21 AM CDT Pulse 74 03/05/2010 10:21 AM CDT Temperature 37.1 ??C (98.8 ??F) 03/05/2010 10:21 AM CDT Respiratory Rate 12 03/05/2010 10:21 AM CDT Oxygen Saturation 98% 03/05/2010 10:21 AM CDT Inhaled Oxygen Concentration - - Weight 61.2 kg (135 lb) 03/05/2010 10:21 AM CDT Height 156.2 cm (5' 1.5) 03/05/2010 10:21 AM CDT Body Mass Index 25.09 03/05/2010 10:21 AM CDT documented in this encounter Progress Notes Charlotte Zuniga - 02/27/2010 10:51 AM CDT [place] [id number] PRE-OP EVALUATION: Today's date: 03/05/2010 Danielle Waldrop (: 1955) presents for pre-operative evaluation assessment as requested by Dr. Alba. She requires evaluation and anesthesia risk assessment prior to undergoing surgery/procedure for treatment of thyroid nodule removal . Proposed procedure: partial thyroidectomy, possible complete thyroidectomy Date of Surgery/ Procedure: 03/09/10 Time of Surgery/ Procedure: 10:00am Hospital/Surgical Facility: [facility] Primary Physician: Dr Conway Type of Anesthesia Anticipated: General History of anesthesia complications: NONE History of abnormal bleeding: NONE History of blood transfusions: NO Patient has a Health Care Directive or Living Will: NO PREOP QUESTIONNAIRE 1- NO - Do you ever have any pain or discomfort in your chest? 2- NO - Have you ever had a severe pain across the front of your chest lasting for half an hour or more? 3- NO - Do you have swelling in your feet or ankles at times? 4- NO - Are you troubled by shortness of breath when: walking on the level/ up a slight hill/ at night? 5- NO - Does your chest ever sound wheezy or whistling? 6- NO - Do you currently have a cold, bronchitis or other respiratory infection? 7- NO - Have you had a cold, bronchitis or other respiratory infection within the last 2 weeks? 8- NO - Do you usually have a cough? 9- NO - Do you sometimes get pains in the calves of your legs when you walk? 10-NO - Do you or anyone in your family have previous history of blood clots? 11-NO - Do you or does anyone in your family have serious bleeding problem such as prolonged bleeding following surgeries or cuts? 12-NO - Have you ever had problems with anemia or been told to take iron pills? 13-NO - Have you had any abnormal blood loss such as black, tarry or bloody stools, or abnormal vaginal bleeding? 14-NO - Have you or any of your relatives ever had problems with anesthesia? 15-YES - Do you snore or stop breathing at night? Pt reports she snores and stops breathing at times; Sleep Apnea test done 2002 or 2002. 16-NO - Do you have any prosthetic heart valves or joints? 17-NO - Is there any chance that you may be ? Maliha Oreilly CMA HPI: See problem list for active medical problems. Problems all longstanding and stable, except as noted/documented. See ROS for pertinent symptoms related to these conditions. . Patient Active Problem List Diagnoses Date Noted ??? Thyroid Nodule [241.0B] 11/28/2009 ??? OTHER BACK SYMPTOMS [724.8] 09/14/2007 ??? SOMAT DYSFUNC SACRAL REG [739.4] 09/14/2007 ??? SOMAT DYSFUNC LOWER EXTR [739.6] 09/14/2007 ??? JOINT PAIN-PELVIS [719.45] 09/14/2007 Past Medical History Diagnosis Date ??? MEDICAL HISTORY OF - POLYSONSOGRAPHY NEG IN ??? Thyroid Nodule 11/2009 Past Surgical History Procedure Date ??? Nonspecific procedure hysterectomy Current outpatient prescriptions Medication Sig ??? VITAMIN D 1000 UNIT PO CAPS 2 capsules daily OTC products: none Allergies Allergen Reactions ??? Seasonal Allergies Latex Allergy: NO History Substance Use Topics ??? Tobacco Use: Never ??? Alcohol Use: No History Drug Use No REVIEW OF SYSTEMS: C: NEGATIVE for fever, chills, change in weight INTEGUMENTARY/SKIN: NEGATIVE for worrisome rashes, moles or lesions E/M: NEGATIVE for ear, mouth and throat problems NECK: positive for rt thyroid nodule, FNA showed atypia . Pt is having thyroid surgery R: NEGATIVE for significant cough or SOB CV: NEGATIVE for chest pain, palpitations or peripheral edema GI: NEGATIVE for nausea, abdominal pain, heartburn, or change in bowel habits : pt had partial hysterectomy in 1997 MUSCULOSKELETAL: NEGATIVE for significant arthralgias or myalgia NEURO: NEGATIVE for weakness, dizziness or paresthesias ENDOCRINE: NEGATIVE for temperature intolerance, skin/hair changes HEME/ALLERGY/IMMUNE: NEGATIVE for bleeding problems PSYCHIATRIC: NEGATIVE for changes in mood or affect EXAM: There were no vitals taken for this visit. GENERAL APPEARANCE: healthy, alert and no distress EYES: Eyes grossly normal to inspection, PERRL and conjunctivae and sclerae normal HENT: ear canals and TM's normal and nose and mouth without ulcers or lesions NECK: no adenopathy, no asymmetry, masses, or scars and thyromegaly approximately 2-3 times normal, rt thyroid enlarged , non tender RESP: lungs clear to auscultation - no rales, rhonchi or wheezes CV: regular rate and rhythm, normal S1 S2, no S3 or S4 and no murmur, click or rub LYMPHATICS: normal ant/post cervical and supraclavicular nodes ABDOMEN: soft, nontender, no HSM or masses and bowel sounds normal MS: extremities normal- no gross deformities noted SKIN: no suspicious lesions or rashes NEURO: Normal strength and tone, sensory exam grossly normal, mentation intact and speech normal PSYCH: mentation appears normal and affect normal/bright DIAGNOSTICS: Preop Testing 11/24/2009: EKG: Normal Sinus Rhythm, normal axis, normal intervals, no acute ST/T changes c/w ischemia, no LVH by voltage criteria, unchanged from previous tracings HB: 13.8 gm/dl IMPRESSION: Reason for surgery/procedure: Rt thyroid nodule , s/p FNA showing atypia The proposed surgical procedure is considered LOW risk. For above listed surgery and anesthesia: Patient is at LOW risk for surgery/procedure and perioperative/procedure complications. RECOMMENDATIONS: --Approval given to proceed with proposed procedure, without further diagnostic evaluation. Signed Electronically by: Betina oGins MD Copy of this evaluation report is provided to requesting physician. Preop Guidelines documented in this encounter Nursing Notes 03/05/2010 10:00 AM CDT >> MALIHA OREILLY FriMar 05, 2010 12:32 PM Preop with EKG faxed to [facility]. Maliha Oreilly CMA >> MALIHA OREILLY FriMar 05, 2010 10:33 AM Patient presents with: Pre-Op Exam - EKG done 11/24/09. Pre Visit Planning - Done Initial BP 96/60 Pulse 74 Temp(Src) 98.8 ??F (37.1 ??C) (Oral) Resp 12 Ht 5' 1.5 (1.562 m) Wt 135 lb (61.236 kg) SpO2 98% Estimated Body mass index is 25.10 kg/(m^2) as calculated from thefollowing: Height as of this encounter: 5' 1.5(1.562 m). Weight as of this encounter: 135 lb(61.236 kg).. BP completed using cuff size: regular. Maliha Oreilly CMA documented in this encounter Plan of Treatment Not on filedocumented as of this encounter Procedures Procedure Name Priority Date/Time Associated Comments Diagnosis HCL HEMOGLOBIN Routine 03/05/2010 10:46 AM Preop General Resul ts for this NONLAB CDT Physical Exam procedure are in the results section. documented in this encounter Results HGB (03/05/2010 10:46 AM CDT) P athologist Signature Hemoglobin 13.8 11.7 - 15.7 [facility] g[facility]dL [facility] Specimen Anatomical Collection Method Collection Time Receive d Time (Source) Location / / Volume Laterality 03/05/2010 10:46 03/05/2010 AM CDT 10:48 AM CDT Michelle Goins MD LABORATORY Performing Organization Address City/State/ZIP Code Phon e Number [facility] [address] [place] [address] [facility] documented in this encounter Visit Diagnoses Diagnosis Preop general physical exam - Primary Other specified pre-operative examinatio n Screening mammogram Other screening mammogram documented in this encounter Care Teams Family And Consumer Education Teacher Relationship Specialty Start Date End Date Eldon Conway MD PCP - General 07/24/01 02/15/18 [address] [place] [address] documented as of this encounter
--- OUTSIDE RECORDS SUMMARY | 2022-01-25 13:44 | XMS_ITS | Encounter Summary ---
:1955 Author Organization [facility] Address [address] [place] [id number] Care Team Providers Name Role Phone Eldon Conawy MD Primary Care Provider Reason for Visit Reason Onset Date Comments Results 08/03/2010 Encounter Details Date Type Department Care Team Description 08/03/2010 Telephone [facility] Michelle Quan MD Results [place] [id number] [place] [address] [phone] (Wo rk) Social History Tobacco Use Types [...] on file documented as of this encounter Miscellaneous Notes Telephone Encounter - Trixie Bolivar - 08/03/2010 2:27 PM CST Called and spoke with Danielle. Informed her of message below. She would like rx sent to [facility]. Will recheck labs in 3-6 months/ Trixie Bolivar RN PROCESSOR OPERATOR Telephone Encounter - CaylacatieMichelle - 08/03/2010 1:29 PM CST Please inform pt : pt has high total & bad cholesterol , recommend to start taking simvastatin 20 mg low dose. Recommend to watch fat in diet, exercise 3-4 times a week. Gave RX to [facility] in [place] Pt was working 2 jobs until lately, but now resigned one job, she wants to focus on diet, exercise But still would recommend to start on Simvastatin low dose , as pt makes life style changes, will recheck labs in 3-6 months. If numbers show good improvement, will wean off medication eventually. All other labs look good, still waiting for vit d labs please send copy of labs along with letter Betina Goins M.D PROCESSOR OPERATOR documented in this encounter Plan of Treatment Not on filedocumented as of this encounter Visit Diagnoses Diagnosis Hyperlipidemia LDL goal <160 - Primary Other and unspecified hyperlipidemia documented in this encounter Care Teams Heel Turner Relationship Specialty Start Date End Date Eldon Conway MD PCP - General 07/24/01 02/15/18 [address] [place] [address] documented as of this encounter
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
--- OUTSIDE RECORDS SUMMARY | 2022-01-25 13:44 | XMS_ITS | Encounter Summary ---
:1955 Author Organization [facility] Address [address] [place] [address] Care Team Providers Name Role Phone Eldon Conway MD Primary Care Provider Encounter Details Date Type Department Care Team Description 03/09/2010 Operative Report [facility] Janine Fish, (Cargo Mate) [facility] Results [address] [place] [address] (Wo rk) Social History Tobacco Use Types Packs/Day Years Used Date Never Smoker Alcohol Use Standard Drinks/Week Comments No 0 (1 standard drink = 0.6 oz pure alcoho l) Sex Assigned at Date Recorded Not on file documented as of this encounter Progress Notes Janine Fish - 03/12/2010 9:53 AM CDT FINAL PREOPERATIVE DIAGNOSIS: Right thyroid nodule, atypical. POSTOPERATIVE DIAGNOSIS: Right thyroid nodule, atypical. PROCEDURE: Right thyroid lobectomy. ANESTHESIA: General. PREOPERATIVE MEDICATIONS: Ancef 1 gram IV. SURGEON: Janine Fish MD RETAIL EVENT AND SALES ASSISTANT: RUBINA Lucas INDICATIONS: Danielle Waldrop is a 54-year-old female who was found to have a right thyroid nodule when she underwent workup of palpitations. This nodule was 1.1 cm but an FNA showed atypia and for thisreason, she was recommended for a lobectomy, possible total thyroidectomy. PROCEDURE: The patient was placed supine, head and neck in extension and a bump between the scapulae. Transverse cervical neck creases had been marked in the preinduction area and the one most suitable was utilized for exposure. Superior and inferior skin flaps were raised. Midline fascia opened and reflected to the right. Upper pole was taken down by double ligation and division. There was a pyramidal lobe also arising from the upper pole which was followed up to its most cephalad extent. Middle thyroidal vein was then ligated, the gland reflected medially. The inferior parathyroid was on a pedicle and partially beneath the capsule of the thyroid lobe. Meticulous dissection preserved it on its vascular pedicle with good viability. The superior parathyroid was also seen and preserved as was the recurrent laryngeal nerve on the right side. The posterior dissection was meticulously done with carefor preserving those structures and once the dissection continued across the anterior trachea, the gl and was divided through the isthmus and submitted for frozen section. The nodule was in the posterior cleft and was grossly quite small and smooth. 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 Closure was with running 3-0 Vicryl for the midline fascia, interrupted for platysma and 4-0 subcuticular Monocryl for skin. The patient was transferred to recovery in good condition. ESTIMATED BLOOD LOSS: Less than 10 mL. INTRAOPERATIVE FINDINGS: 1. Follicular lesion, benign by frozen section, right thyroid lobe. 2. Both right parathyroids and the right recurrent laryngeal nerve seen and preserved. Electronically signed on 03/12/2010 09:52 by JANINE FISH MD MT: [id number] Name: DANIELLE WALDROP MRN: [id number] Account: [id number] : 1955 Procedure Date: 03/09/2010 Document: [id number] documented in this encounter Plan of Treatment Not on filedocumented as of this encounter Visit Diagnoses Not on filedocumented in this encounter Care Teams Star Route Mail Driver Relationship Specialty Start Date End Date Eldon Conway MD PCP - General 07/24/01 02/15/18 [address] [place] [address] documented as of this encounter
--- OUTSIDE RECORDS SUMMARY | 2022-01-25 13:44 | XMS_ITS | Encounter Summary ---
:1955 Author Organization [facility] Address [address] [place] [address] Care Team Providers Name Role Phone Eldon Conway MD Primary Care Provider Encounter Details Date Type Department Care Team Description 03/09/2010 Historic Results INTERFACED REPORT Interface, Jose L aldana MD Social History Tobacco Use Types Packs/Day Years Used Date Never Smoker Alcohol Use Standard Drinks/Week Comments No 0 (1 standard drink = 0.6 oz pure alcoho l) Sex Assigned at Date Recorded Not on file documented as of this encounter Plan of Treatment Not on filedocumented as of this encounter Procedures Procedure Name Priority Date/Time Associated Diagnosis Comme nts EKG 12 LEAD Routine 03/09/2010 9:17 AM Results f or this CDT procedure are i n the results section . documented in this encounter Results EKG 12 LEAD (03/09/2010 9:17 AM CDT) Component Value Ref Range Test Analysis Performed Pathologis t Method Time At Signature Ventricular Rate 68 BPM RADIOLOGY RESULTS Atrial Rate 68 BPM RADIOLOGY RESULTS NC Interval 92 ms RADIOLOGY RESULTS QRS Duration 84 ms RADIOLOGY RESULTS QT 414 ms RADIOLOGY RESULTS QTc 440 ms RADIOLOGY RESULTS P [place] 19 degrees RADIOLOGY RESULTS R AXIS 0 degrees RADIOLOGY RESULTS T [place] 32 degrees RADIOLOGY RESULTS Interpretation Sinus rhythm with short NC RADIOLOGY ECG Cannot rule out Anterior infarct , age undetermined RESULTS Abnormal ECG Unconfirmed report - interpretation of this ECG is compute r generated - see medical record for final interpretation Specimen Anatomical Collection Method Collection Time Receive d Time (Source) Location / / Volume Laterality 03/09/2010 9:17 AM 0 8:33 CDT AM CDT Transcripton Interface ECG ORDERABLES Performing Organization Address City/State/ZIP Code Phon e Number RADIOLOGY RESULTS documented in this encounter Visit Diagnoses Not on filedocumented in this encounter Care Teams Nuclear Instructor Relationship Specialty Start Date End Date Eldon Conway MD PCP - General 07/24/01 02/15/18 [address] [place] [address] documented as of this encounter
--- OUTSIDE RECORDS SUMMARY | 2022-01-25 13:44 | XMS_ITS | Encounter Summary ---
:1955 Author Organization [facility] Address [address] [place] [address] Care Team Providers Name Role Phone Eldon Conway MD Primary Care Provider Reason for Referral Referral not Required - Closed Specialty Diagnoses / Procedures Referred By Contact Refer red To Contact Diagnoses Urine, incontinence, stress female Michelle Goins MD [facility] [employer] [address] [place] [address] [place] [address] Fax: Phone: Fax: Referral ID Status Reason Start Date Expiration Date Visits Requ ested Visits Authorized [id number] Closed 08/02/2010 08/02/2010 1 1 ECT ADMINISTRATOR Reason for Visit Reason Comments Physical with pap; last pap 04/14/08 - nil; PT had partial hysterectomy after 1991 because of prolapsed uterus; PT IS FASTING. Encounter Details Date Type Department Care Team Description 08/02/2010 Office Visit [facility], Screening for osteoporosis; Clinic Cathy Martinez MD Routine gynecological examination; [address] [place] [address] Routine physical examination ; [place], [place] [facility] Urine, incontinence, stress female; [id number] [address] Hyperlipidemia LDL goal <[address] [place] [address] (Wo rk) Social History Tobacco Use Types [...] Sign Reading Time Taken Comments Blood Pressure 102/64 08/02/2010 9:38 AM PROJECT ADMINISTRATOR Pulse 76 08/02/2010 9:38 AM PROJECT ADMINISTRATOR Temperature 36.6 ??C (97.8 ??F) 08/02/2010 9:38 AM PROJECT ADMINISTRATOR Respiratory Rate 12 08/02/2010 9:38 AM PROJECT ADMINISTRATOR Oxygen Saturation 96% 08/02/2010 9:38 AM PROJECT ADMINISTRATOR Inhaled Oxygen Concentration - - Weight 61.7 kg (136 lb) 08/02/2010 9:38 AM PROJECT ADMINISTRATOR Height 156.8 cm (5' 1.75) 08/02/2010 9:38 AM PROJECT ADMINISTRATOR Body Mass Index 25.08 08/02/2010 9:38 AM PROJECT ADMINISTRATOR documented in this encounter Maliha Farley - 08/02/2010 9:42 AM CST CC: Danielle Waldrop is an 55 year old woman who presents for preventive health visit. Pt is here for physical, pap . Pt is , has 3 kids & 1 step kid. Besides routine health maintenance, she has no other health concerns today . Pt is working hard with2 jobs, not taking care of diet & exercise, now resigned one job, wants to focus on diet & exercise. Healthy Habits: Do you get at least three servings of calcium containing foods daily (dairy, green leafy vegetables,etc.)? yes Outside of work or daily activities, how many days per week do you exercise for 30 minutes or longer? NONE Have you had an eye exam in the past two years? no Do you see a dentist twice per year? no Staff Signature Maliha Oreilly CMA PHQ-2 Over the last two weeks- Have you been bothered by little interest or pleasure in doing things? No Over the last two weeks- Have you been feeling down, depressed, or hopeless? No Abuse: Current or Past(Physical, Sexual or Emotional)- No Do you feel safe in your environment - Yes History Substance Use Topics ??? Smoking status: Never Smoker ??? Smokeless tobacco: Never Used ??? Alcohol Use: Yes socially/rare The patient does not drink >3 drinks per day nor >7 drinks per week. Reviewed orders with patient. Reviewed health maintenance and updated orders accordingly - Yes Staff Signature Maliha Oreilly CMA History of abnormal Pap smear: No. pt had partial hysterectomy in 1997 for prolapsed uterus All Histories reviewed and updated in [facility]. ROS: C: NEGATIVE for fever, chills, change in weight I: NEGATIVE for worrisome rashes, moles or lesions E: NEGATIVE for vision changes or irritation ENT: NEGATIVE for ear, mouth and throat problems, positive for partial thyroidectomy for thyroid nodule in 03/2010 , sees java software engineer Dr Rosario, not on supplements. R: NEGATIVE for significant cough or SOB B: NEGATIVE for masses, tenderness or discharge CV: NEGATIVE for chest pain, palpitations or peripheral edema GI: NEGATIVE for nausea, abdominal pain, heartburn, or change in bowel habits : NEGATIVE for unusual urinary or vaginal symptoms. No vaginal bleeding. Pt had partial hysterectomy, pt has urine leaking with running or jumping after hysterectomy in 1997 . M: NEGATIVE for significant arthralgias or myalgia N: NEGATIVE for weakness, dizziness or paresthesias E: NEGATIVE for temperature intolerance, skin/hair changes H: NEGATIVE for bleeding problems P: NEGATIVE for changes in mood or affect OBJECTIVE: BP 102/64 Pulse 76 Temp(Src) 97.8 ??F (36.6 ??C) (Oral) Resp 12 Ht 5' 1.75 (1.568 m) Wt 136 lb (61.689 kg) SpO2 96% GENERAL APPEARANCE: healthy, alert and no distress EYES: Eyes grossly normal to inspection, PERRL and conjunctivae and sclerae normal HENT: ear canals and TM's normal, nose and mouth without ulcers or lesions, oropharynx clear and oral mucous membranes moist NECK: no adenopathy, no asymmetry, masses, or scars and thyroid normal to palpation RESP: lungs clear to auscultation - no rales, rhonchi or wheezes BREAST: normal without masses, tenderness or nipple discharge and no palpable axillary masses or adenopathy CV: regular rate and rhythm, normal S1 S2, no S3 or S4, no murmur, click or rub, no peripheral edemaand peripheral pulses strong ABDOMEN: soft, nontender, no hepatosplenomegaly, no masses and bowel sounds normal (female): stable post hysterectomy changes, grade II cystocele present , normal female external genitalia, vaginal mucosal atrophy noted and normal cervix, adnexae, and uterus without masses or abnormal discharge MS: no musculoskeletal defects are noted and gait is age appropriate without ataxia SKIN: no suspicious lesions or rashes NEURO: Normal strength and tone, sensory exam grossly normal, mentation intact and speech normal PSYCH: mentation appears normal and affect normal/bright COUNSELING: regular exercise weight management healthy diet/nutrition Osteoporosis Prevention/Bone Health self breast exam ATP III Guidelines ICSI Preventive Guidelines ASSESSMENT/PLAN: V82.81A Screening for osteoporosis Comment: pt is taking calcium + vit d supplements Plan: Dexa hip/pelvis/spine* Recommend 1500 mg of calcium + vit d 1000 IU daily V72.31 Routine gynecological examination Comment: Normal exam Plan: PAP imaged thin layer screen Pap every 5 yrs if normal V70.0F Routine physical examination Comment: normal exam Plan: Dexa hip/pelvis/spine*, Lipid panel reflex to direct LDL, Comprehensive metabolic panel, TSH with free T4 reflex, CBC with platelets, PAP imaged thin layer screen, Vitamin D deficiency screening Discussed about diet, excercise, monthly breast exam, yearly physical Pt is willing to exercise more frequently 625.6T Urine, incontinence, stress female Comment: worse with running Plan: UROLOGY ADULT REFERRAL Avoid caffine 272.4CY Hyperlipidemia LDL goal <160 Comment: not on medciations Plan: Lipid panel reflex to direct LDL Discussed low fat, low carb diet, regular exercise Pt is interested to exercise more now with diet. ECT ADMINISTRATOR documented in this encounter Nursing Notes 08/02/2010 9:15 AM CST >> MALIHA OREILLY Doris Aug 02, 2010 9:42 AM Patient presents with: Physical - with pap; last pap 04/14/08 - nil; PT had partial hysterectomy after 1991 because of prolapsed uterus; PT IS FASTING. Initial BP 102/64 Pulse 76 Temp(Src) 97.8 ??F (36.6 ??C) (Oral) Resp 12 Ht 5' 1.75 (1.568 m) Wt 136 lb (61.689 kg) SpO2 96% Estimated Body mass index is 25.08 kg/(m^2) as calculated from the following: Height as of this encounter: 5' 1.75(1.568 m). Weight as of this encounter: 136 lb(61.689 kg).. BP completed using cuff size: regular. Maliha Oreilly CMA documented in this encounter Plan of Treatment Scheduled Referrals Name Type Priority Associated Diagnoses Order S chedule UROLOGY ADULT REFERRAL Referral Routine Urine, incontinenc e, Ordered: 08/02/2010 stress female documented as of this encounter Procedures Procedure Name Priority Date/Time Associated Diagnosis Comme nts PAP IMAGED THIN LAYER Routine 08/02/2010 10:11 Routine gynecol ogical Results for this SCREEN AM PROJECT ADMINISTRATOR examination procedure are in Routine physical the results examination section. VITAMIN D DEFICIENCY Routine 08/02/2010 10:11 Routine physical Results for this SCREENING AM PROJECT ADMINISTRATOR examination procedure are i n the results section. TSH WITH FREE T4 Routine 08/02/2010 10:11 Routine physical Res ults for this REFLEX AM PROJECT ADMINISTRATOR examination procedure are i n the results section. LIPID REFLEX TO Routine 08/02/2010 10:11 Routine physical Resu lts for this DIRECT LDL PANEL AM PROJECT ADMINISTRATOR examination procedure are in Hyperlipidemia LDL the resul ts goal <160 section. COMPREHENSIVE Routine 08/02/2010 10:11 Routine physical Result s for this METABOLIC PANEL AM PROJECT ADMINISTRATOR examination procedure ar e in the results section. CBC WITH PLATELETS Routine 08/02/2010 10:11 Routine physical R esults for this AM PROJECT ADMINISTRATOR examination procedure are i n the results section. documented in this encounter Results Vitamin D deficiency screening (08/02/2010 10:11 AM PROJECT ADMINISTRATOR) Component Value Ref Test Analysis Performed At [facility] gist Range Method Time Signature 25 OH Vit D2 <5 ug/L [facility] 25 [place] Vit D3 45 ug/L [facility] 25 OH Vit D <50 30 - 75 [facility] total Season, race, dietary intake, and treatm ent affect the concentration of ug/L [place] [id number] D. Values may decrease during brandy er months and increase [facility] during summer months. Values less than 30 ug/L may indicate Vitamin D deficiency. Specimen Anatomical Collection Method Collection Time Receive d Time (Source) Location / / Volume Laterality Blood specimen 08/02/2010 10:11 1 (specimen) AM PROJECT ADMINISTRATOR 10:12 AM PROJECT ADMINISTRATOR Michelle Goins MD LAB - BLOOD ORDERABLES Performing Organization Address City/State/ZIP Code Phon e Number [address] LABS PAP imaged thin layer screen (08/02/2010 10:11 AM PROJECT ADMINISTRATOR) Component Value Ref Test Analysis Performed At [facility] Range Method Time Signature PAP NIL COPATH Copath Report COPATH Patient Name: DANIELLE WALDROP MR#: [id number] Specimen #: [id number] Collected: 08/02/2010 Received: 08/03/2010 Reported: 08/06/2010 14:37 Ordering Phy(s): MICHELLE GOINS SPECIMEN/STAIN PROCESS: Pap imaged thin layer prep screening (Surepath, FocalPoint w ith guided screening) ? Pap-Cyto x 1, Reflex HPV x 1 SOURCE: Vaginal ---- Pap imaged thin layer prep screening (Surepath, FocalPoint with guided screening) SPECIMEN ADEQUACY: Satisfactory for evaluation. -Transitional zone component could not be determined due to atrophy. CYTOLOGIC INTERPRETATION: Negative for Intraepithelial Lesion or Malignancy Electronically signed out by: CHEKO Hernandez (ASCP) Processed and screened at [facility] CLINICAL HISTORY: Partial Hysterectomy, Previous normal pap Date of Last Pap: 04/14/08, Papanicolaou Test Limitations: ??Cervical cytology is a scre ening test with limited sensitivity; regular screening is critical for cancer prevention; Pap tests are primarily effective for the diagnosis/prevention of squamous cell carcinoma, not adenoca rcinomas or other cancers. TESTING LAB LOCATION: [address] ??[id number] COLLECTION SITE: Client: ??[facility] Location: [facility] (R) Specimen (Source) Anatomical Collection Method Collection Time Re ceived Time Location / / Volume Laterality Cytologic 08/02/2010 10:11 08/03/2010 material AM PROJECT ADMINISTRATOR 10:53 AM PROJECT ADMINISTRATOR (specimen) Michelle Goins MD LAB - OPTIME CLINICAL SPECIM EN Performing Organization Address City/[facility]/ZIP Code Phon e Number COPATH CBC with platelets (08/02/2010 10:11 AM PROJECT ADMINISTRATOR) athologist Signature WBC 6.5 4.0 - 11.0 [place] 10e9/L [facility] RBC Count 4.47 3.8 - 5.2 [place] 10e12/L [facility] Hemoglobin 14.0 11.7 - [place] 15.7 g/dL [facility] Hematocrit 42.0 35.0 - [place] 47.0 % [facility] MCV 94 78 - 100 [place] fl [facility] MCH 31.3 26.5 - [place] 33.0 pg [facility] MCHC 33.3 31.5 - [place] 36.5 g/dL [facility] RDW 12.6 10.0 - [place] 15.0 % [facility] Platelet Count 257 150 - 450 [place] 10e9/L [facility] Specimen Anatomical Collection Method Collection Time Receive d Time (Source) Location / / Volume Laterality Blood specimen 08/02/2010 10:11 1 (specimen) AM PROJECT ADMINISTRATOR 10:12 AM PROJECT ADMINISTRATOR Michelle Goins MD LAB - BLOOD ORDERABLES Performing Organization Address City/[facility]/ZIP Code Phon e Number [facility] [id number] [place] [phone] [facility] TSH with free T4 reflex (08/02/2010 10:11 AM PROJECT ADMINISTRATOR) athologist Signature TSH 1.81 0.4 - 5.0 [place] mU/L [facility] Specimen Anatomical Collection Method Collection Time Receive d Time (Source) Location / / Volume Laterality Blood specimen 08/02/2010 10:11 1 (specimen) AM PROJECT ADMINISTRATOR 10:12 AM PROJECT ADMINISTRATOR Michelle Goins MD LAB - BLOOD ORDERABLES Performing Organization Address City/State/ZIP Code Phon e Number [facility] [address] [place] [address] [facility] Comprehensive metabolic panel (08/02/2010 10:11 AM PROJECT ADMINISTRATOR) P athologist Signature Sodium 144 133 - 144 [place] mmol/L [facility] LAB Potassium 4.6 3.4 - 5.3 [place] mmol/L [facility] Chloride 105 94 - 109 [place] mmol/L [facility] Carbon Dioxide 29 20 - 32 [place] mmol/L [facility] Anion Gap 10 6 - 17 [place] [place] mmol/L [facility] Glucose 93 60 - 99 [place] mg/dL [facility] LAB Urea Nitrogen 24 7 - 30 [place] [place] mg/dL [facility] LAB Creatinine 0.77 0.52 - [facility] [place] 1.04 mg/dL CLINIC LAB Comment: New IDMS-traceable calibration beginning 10/08/07 GFR Estimate 78 >60 mL/min/1.7m2 [facility] GFR Estimate If Black >90 >60 mL/min/1.7m2 [facility] [place] [facility] Calcium 9.6 8.5 - 10.4 mg/dL [facility] Bilirubin Total 0.6 0.2 - 1.3 mg/dL [facility] Albumin 4.6 3.3 - 4.9 g/dL [facility] Comment: Reference range changed on 02/08. Protein Total 7.7 6.8 - 8.8 g/dL [facility] Comment: As of 07, reference range reflects plasma specimen type. Alkaline Phosphatase 71 40 - 150 U/L [facility] ALT 20 0 - 50 U/L [facility] [place] [facility] AST 27 0 - 45 U/L [facility] [place] [facility] LAB Specimen Anatomical Collection Method Collection Time Receive d Time (Source) Location / / Volume Laterality Blood specimen 08/02/2010 10:11 1 (specimen) AM PROJECT ADMINISTRATOR 10:12 AM PROJECT ADMINISTRATOR Michelle Goins MD LAB - BLOOD ORDERABLES Performing Organization Address [facility] Code [facility] e Number [address] [address] [facility] (ABNORMAL) Lipid panel reflex to direct LDL (08/02/2010 10:11 AM PROJECT ADMINISTRATOR) athologist Signature Cholesterol 287 (H) 0 - 200 [facility] mg/dL CLINIC LAB Comment: LDL Cholesterol is the primary guide to therapy. The NCEP recommends further evaluation of: patients with cholesterol <200 mg/dL if additional risk factors are present, cholesterol >240 mg/dL, triglycerides >150 mg/dL, or HDL <40 mg/dL. Triglycerides 104 0 - 150 mg/dL [facility] HDL Cholesterol 66 50 - 110 mg/dL [facility] LDL Cholesterol Calculated 200 (H) 0 - 129 mg/dL [facility] Comment: LDL Cholesterol is the primary guide to therapy: LDL-cholesterol goal in high risk patients is <100 mg/dL and in very high risk patients is <70 mg/dL. VLDL-Cholesterol 21 0 - 30 mg/dL [facility] Cholesterol/HDL Ratio 4.4 0.0 - 5.0 [facility] Specimen Anatomical Collection Method Collection Time Receive d Time (Source) Location / / Volume Laterality Blood specimen 08/02/2010 10:11 1 (specimen) AM PROJECT ADMINISTRATOR 10:12 AM PROJECT ADMINISTRATOR Michelle Goins MD LAB - BLOOD ORDERABLES Performing Organization Address City/[facility]/ZIP Code Phon e Number [facility] [address] [place] [address] [phone] [facility] documented in this encounter Visit Diagnoses Diagnosis Screening for osteoporosis Special screening for osteoporosis Routine gynecological examination Routine physical examination Routine general medical examination at a health care facility Urine, incontinence, stress female Female stress incontinence Hyperlipidemia LDL goal <160 Other and unspecified hyperlipidemia documented in this encounter Care Teams Pediatrician/Medical Doctor Relationship Specialty Start Date End Date Eldon Conway MD PCP - General 07/24/01 02/15/18 [address] [place] [address] documented as of this encounter
--- OUTSIDE RECORDS SUMMARY | 2022-01-25 13:44 | XMS_ITS | Encounter Summary ---
:1955 Author Organization [facility] Address [address] [place] [address] Care Team Providers Name Role Phone Eldon Conway MD Primary Care Provider Reason for Visit Reason Onset Date Comments Thyroid Problem 05/01/2010 Encounter Details Date Type Department Care Team Description 05/01/2010 Telephone [facility] Irma Carter NP Thyroid Problem [facility] [address] [place] [address] [phone] Social History Tobacco Use Types Packs/Day Years Used Date Never Smoker Alcohol Use Standard Drinks/Week Comments No 0 (1 standard drink = 0.6 oz pure alcoho l) Sex Assigned at Date Recorded Not on file documented as of this encounter Miscellaneous Notes Telephone Encounter - Whitney Sutton - 05/02/2010 10:10 AM CST Detailed message left for pt E THEATER MANAGER Telephone Encounter - Irma Rosario - 05/01/2010 10:52 PM CST Yes , of course, for any wound, or surgical complication she should call the surgery clinic. I'll respond to the labs. Irma Rosario MD [facility] E THEATER MANAGER Telephone Encounter - Chris October - 05/01/2010 8:38 AM CST Patient calling, partial thyroidectomy 03/09/10, yesterday noticed red area 2 1/2 wide above surgical scar, no pain, no drainage, not itchy, Asking what she should do-call surgeon? Also asking for lab results from recent lab tests please advise E THEATER MANAGER documented in this encounter Plan of Treatment Not on filedocumented as of this encounter Visit Diagnoses Not on filedocumented in this encounter Care Teams Reactor Technician Relationship Specialty Start Date End Date Eldon Conway MD PCP - General 07/24/01 02/15/18 [address] [place] [address] documented as of this encounter
--- OUTSIDE RECORDS SUMMARY | 2022-01-25 13:44 | XMS_ITS | Encounter Summary ---
:1955 Author Organization [place] Address [address] [place] [address]. [place] [address] Care Team Providers Name Role Phone Mariaelena Boland Primary Care Provider Reason for Referral Diagnostic Imaging XR - Closed Specialty Diagnoses / Procedures Referred By Contact Refer red To Contact Radiology. Diagnoses Dysphagia Krystian, Mariaelena Rh Xray Rscc Procedures XR Esophagram [facility] [address] [place] [address] [id number] [place] [address] Phone: Fax: Referral ID Status Reason Start Date Expiration Date Visits Requ ested Visits Authorized [id number] Closed 02/16/2018 02/16/2019 1 1 Reason for Visit Diagnostic Imaging XR - Closed Specialty Diagnoses / Procedures Referred By Contact Refer red To Contact Radiology. Diagnoses Dysphagia Krystian, Mariaelena Rh Xray Rscc Procedures XR Esophagram [facility] [address] [facility] [address] [facility] [address] [place] [address] [place] [address] Phone: Fax: Referral ID Status Reason Start Date Expiration Date Visits Requ ested Visits Authorized [id number] Closed 02/16/2018 02/16/2019 1 1 Encounter Details Date Type Department Care Team Description 02/20/2018 Hospital Encounter [facility], Mariaelena Dysphagia Imaging [facility] [address] [place] [address] [phone] Social History Tobacco Use Types Packs/Day Years [...] 12 08/02/2010 (MULTIVITAMIN) per tablet mouth daily. [place]-3 Fatty Acids 1200 Take 1 capsule by 180 capsule 12 MG capsule mouth daily. [id number] Nature's Bounty 0 07/10/2010 Calcium Plus D - 600mg/500IU. ONE Softgel cap daily. pravastatin (PRAVACHOL) 20 Take 1 tablet by 30 tablet 3 MG tabletIndications: mouth daily. Hyperlipidemia LDL goal <160 documented as of this encounter Plan of Treatment Not on filedocumented as of this encounter Procedures Procedure Name Priority Date/Time Associated Diagnosis Comme nts XR ESOPHAGRAM Routine 02/20/2018 9:42 AM Dysphagia Results for this CDT procedure are i n the results section . documented in this encounter Results XR Esophagram (02/20/2018 9:42 AM CDT) Anatomical Region Laterality Modality Chest Radio Fluoroscopy Specimen (Source) Anatomical Location Collection Method / Collectio n Time Received Time / Laterality Volume Impressions 02/20/2018 4:39 PM CDT IMPRESSION : 1. Esophageal dysmotility with persisten t barium in the upper thoracic esophagus consistent with decreased yousuf stalsis. No discrete tertiary waves identified. 2. No hiatal hernia or obstructing lesio n. 3. Slight irregular contour along anteri or pharynx and vallecula could be assessed with direct visualization. JOHANNA MONZON MD Narrative 02/20/2018 4:39 PM CDT ESOPHAGRAM 02/20/2018 9:42 AM HISTORY: Solid food dysphagia. COMPARISON: None. TECHNIQUE: Biphasic esophagram with doub le contrast and single-contrast technique. FINDINGS: No evidence for esophageal obs truction or mucosal abnormality. The esophagus is fairly sma ll in caliber diffusely but there is no discrete stricture identifie d. There is esophageal dysmotility with some delayed clearance of barium from the upper thoracic esophagus but no discrete terti justin waves identified. No evidence for hiatal hernia. On lateral v iew of the cervical esophagus, there is slight irregular contour along the anterior pharynx and vallecula of uncertain clinical signific ance but could be evaluated with direct visualization. Other images of the cervical esophagus demonstrates some lucency in the pharynx during swallowing but this did not persist on every view suggesting it could be swallowed air. Procedure Note Johanna Monzon MD - 02/20/2018For matting of this note might be different from the original. ESOPHAGRAM 02/20/2018 9:42 AM HISTORY: Solid food dysphagia. COMPARISON: None. TECHNIQUE: Biphasic esophagram with doub le contrast and single-contrast technique. FINDINGS: No evidence for esophageal obs truction or mucosal abnormality. The esophagus is fairly sma ll in caliber diffusely but there is no discrete stricture identifie d. There is esophageal dysmotility with some delayed clearance of barium from the upper thoracic esophagus but no discrete terti justin waves identified. No evidence for hiatal hernia. On lateral v iew of the cervical esophagus, there is slight irregular contour along the anterior pharynx and vallecula of uncertain clinical signific ance but could be evaluated with direct visualization. Other images of the cervical esophagus demonstrates some lucency in the pharynx during swallowing but this did not persist on every view suggesting it could be swallowed air. IMPRESSION : 1. Esophageal dysmotility with persisten t barium in the upper thoracic esophagus consistent with decreased yousuf stalsis. No discrete tertiary waves identified. 2. No hiatal hernia or obstructing lesio n. 3. Slight irregular contour along anteri or pharynx and vallecula could be assessed with direct visualization. JOHANNA MONZON MD Mariaelenamanuel Boland IMG DIAGNOSTIC IMAGING ORDER [place] documented in this encounter Visit Diagnoses Diagnosis Dysphagia Dysphagia, unspecified documented in this encounter Administered Medications Inactive Administered Medications - up to 3 most recent administrations Medication Order MAR Action Action Date Dose Rate Site barium sulfate (EZ PAQUE) oral Given 02/20/2018 9:42 AM CDT suspension 96% Oral, ONCE, On Fri02/20/18 at 0945, For 1 dose barium sulfate (EZ-HD) oral suspension 9 8% Given 02/20/2018 9:42 AM CDT Oral, ONCE, On Fri02/20/18 at 0945, For 1 dose sod bicarbonate-citric acid-simethicone (EZ GAS) Given 02/20/2018 9:42 AM CDT 4 g 2.21-1.53-0.04 g packet 4 g 4 g, Oral, ONCE, On Fri02/20/18 at 0945, For 1 dose documented in this encounter Care Teams Bookstore Clerk Relationship Specialty Start Date End Date Mariaelena Boland PCP - General Internal Medicine 02/16/18 [facility] [address] [place] [address] documented as of this encounter
--- OUTSIDE RECORDS SUMMARY | 2022-01-25 13:44 | XMS_ITS | Encounter Summary ---
:1955 Author Organization [place] Address [address] [place] [address] Care Team Providers Name Role Phone Eldon Conway MD Primary Care Provider Reason for Visit Reason Onset Date Comments Muscle Pain 08/15/2010 [facility] hand pain Encounter Details Date Type Department Care Team Description 08/15/2010 Telephone [facility] Juancarlos Goins n ([facility] MD Michelle hand pain) [address] [place], [place] [employer] [phone] [phone] [address] (Wo rk) Social History Tobacco Use Types [...] this encounter Miscellaneous Notes Telephone Encounter - Rhea Benites - 08/15/2010 2:50 PM CST Left message on [employer], [employer]il with below info Melinda Benites RN N CHAIN MARKER Telephone Encounter - Michelle Goins - 08/15/2010 10:47 AM CST Please inform pt : simvastatin usually causes muscle aches, not joint pains. Pt can take OTC Co-Enzyme Q 20 -30 mg , which helps with muscle aches . If symptoms still persist in 2-3 weeks, will check labs CK, Myoglobin labs Betina Goins M.D N CHAIN MARKER Telephone Encounter - Rhea Benites - 08/15/2010 9:45 AM CST Pt calls: [phone] (home) Has noticed increased right hand joint pain every am since starting the simvastatin. Did notice slight pain prior to starting. Wondering if related to use of simvastatin or not. Pain usually takes about 2 hours to go away and then comes back in am. Has noticed left hand is starting to be a little sorenow as well. Message handled by Nurse Triage with [facility]. Melinda Benites, DEMETRIO N CHAIN MARKER documented in this encounter Plan of Treatment Not on filedocumented as of this encounter Visit Diagnoses Not on filedocumented in this encounter Care Teams Marketing Operations Coordinator Relationship Specialty Start Date End Date Eldon Conway MD PCP - General 07/24/01 02/15/18 [address] [place] [address] documented as of this encounter
--- OUTSIDE RECORDS SUMMARY | 2022-01-25 13:44 | XMS_ITS | Encounter Summary ---
:1955 Author Organization [place] Address [address] [place] [address] Care Team Providers Name Role Phone Eldon [...] Comme nts EKG 12 LEAD Routine 03/09/2010 9:18 AM Results f or this CDT procedure are i n the results section . documented in this encounter Results EKG 12 LEAD (03/09/2010 9:18 AM CDT) Component Value Ref Range Test Analysis Performed Pathologis t Method Time At Signature Ventricular Rate 66 BPM RADIOLOGY RESULTS Atrial Rate 66 BPM RADIOLOGY RESULTS OH Interval 94 ms RADIOLOGY RESULTS QRS Duration 80 ms RADIOLOGY RESULTS QT 402 ms RADIOLOGY RESULTS QTc 421 ms RADIOLOGY RESULTS P [place] 5 degrees RADIOLOGY RESULTS R AXIS 1 degrees RADIOLOGY RESULTS T [place] 20 degrees RADIOLOGY RESULTS Interpretation Sinus rhythm with short OH RADIOLOGY ECG Cannot rule out Anterior infarct , age undetermined RESULTS Abnormal ECG Unconfirmed report - interpretation of this ECG is compute r generated - see medical record for final interpretation Specimen Anatomical Collection Method Collection Time Receive d Time (Source) Location / / Volume Laterality 03/09/2010 9:18 AM 0 8:33 CDT AM CDT Transcripton Interface ECG ORDERABLES Performing Organization Address City/State/ZIP Code Phon e Number RADIOLOGY RESULTS documented in this encounter Visit Diagnoses Not on filedocumented in this encounter Care Teams Assistant Clinical Director Relationship Specialty Start Date End Date Eldon Conway MD PCP - General 07/24/01 02/15/18 [address] [place] [address] documented as of this encounter
--- OUTSIDE RECORDS SUMMARY | 2022-01-25 13:44 | XMS_ITS | Encounter Summary ---
:1955 Author Organization [place] Address [address] [place] [address] Care Team Providers Name Role Phone Mariaelena Boland Primary Care Provider Reason for Referral Diagnostic Imaging CT Scan (Routine) - Closed Specialty Diagnoses / Procedures Referred By Contact Refer red To Contact Diagnoses Abdominal lump Mariaelena Boland Procedures CT Abdomen Pelvis w Contrast [facility] [address] [place] [address] Referral ID Status Reason Start Date Expiration Date Visits Requ ested Visits Authorized [id number] Closed 10/29/2021 10/29/2022 1 1 Reason for Visit Diagnostic Imaging CT Scan (Routine) - Closed Specialty Diagnoses / Procedures Referred By Contact Refer red To Contact Diagnoses Abdominal lump Mariaelena Boland Procedures CT Abdomen Pelvis w Contrast [facility] [address] [place] [address] Referral ID Status Reason Start Date Expiration Date Visits Requ ested Visits Authorized [id number] Closed 10/29/2021 10/29/2022 1 1 Encounter Details Date Type Department Care Team Description 11/03/2021 Hospital Encounter [facility] Carolyn Afua Boland Abdominal lump [facility] [address] [place] [address] [phone] Social History Tobacco Use Types Packs/Day Years [...] have Coronavirus/COVID-19? documented as of this encounter Medications at [...] 12 08/02/2010 (MULTIVITAMIN) per tablet mouth daily. [place]-3 Fatty Acids 1200 Take 1 capsule by 180 capsule 12 MG capsule mouth daily. [id number] Nature's Bounty 0 07/10/2010 Calcium Plus D [...] results section. documented in this encounter Results CT Abdomen Pelvis w Contrast (11/03/2021 [...] CT ABDOMEN AND PELVIS WITH CONTRAST LOCATION: [facility] DATE/TIME: 11/03/2021, 8:28 AM INDICATION: Abdominal lump. [...] ABDOMEN AND PELVIS WITH CONTRAS T LOCATION: [facility] DATE/TIME: 11/03/2021, 8:28 AM INDICATION: Abdominal lump. [...] stoo l suggestive of constipation. Mariaelena Boland Tommy CT ORDERABLES documented in this encounter Visit Diagnoses Diagnosis Abdominal lump Abdominal or pelvic swelling, mass or juanita mp, unspecified site documented in this encounter Administered Medications Inactive Administered Medications - up to 3 most recent administrations Medication Order MAR Action Action Date Dose Rate Site iopamidol (ISOVUE-370) solution 85 Given 11/03/2021 8:33 AM CDT 85 mLs mL 85 mL, Intravenous, ONCE, On 11/03/21 at 0900, For 1 dose sodium chloride (PF) 0.9% PF flush 60 mL Given 11/03/2021 8:33 AM CDT 60 mLs 60 mL, Intravenous, ONCE, On 11/03/21 at 0900, For 1 dose documented in this encounter Care Teams Federal Law Clerk Relationship Specialty Start Date End Date Mariaelena Boland PCP - General Internal Medicine 02/16/18 [facility] [address] [id number] documented as of this encounter
--- OUTSIDE RECORDS SUMMARY | 2022-01-25 13:45 | XMS_ITS | Encounter Summary ---
:1955 Author Organization [place] Address [facility] [place] [address] Care Team Providers Name Role Phone Eldon Conway MD Primary Care Provider Reason for Visit Reason Onset Date Comments Pt. Information/instruction 06/13/2009 Encounter Details Date Type Department Care Team Description 06/12/2009 Telephone [facility] Eldon Conway, Pt. [facility] [place] Information/instruction [address] [place] [id number] [phone] Social History Tobacco Use Types Packs/Day Years Used Date Never Smoker Alcohol Use Standard Drinks/Week Comments No 0 (1 standard drink = 0.6 oz pure alcoho l) Sex Assigned at Date Recorded Not on file documented as of this encounter Miscellaneous Notes Telephone Encounter - Yokasta Forbes - 06/12/2009 9:49 AM REGULATORY AFFAIRS STRATEGY SPECIALIST Staff Message copied by YOKASTA FORBES on FriJun 12, 2009 9:49 AM ------ Message from: ALBARO GEORGE Created: FriJun 12, 2009 9:40 AM Regarding: as wants another script for levaquin First and Last name of caller: kary Relationship to patient: self Reason for call: wants another script for levaquin because she is not any better Is it in regards to a medication: yes Med Name: levaquin Pharmacy name and location: [facility] Provider they see: lucho Phone number they can be reached at: [phone] Ok to leave a message: no LATORY AFFAIRS STRATEGY SPECIALIST documented in this encounter Plan of Treatment Not on filedocumented as of this encounter Visit Diagnoses Diagnosis Acute maxillary sinusitis - Primary documented in this encounter Care Teams Viner Operator Relationship Specialty Start Date End Date Eldon Conway MD PCP - General 07/24/01 02/15/18 [address] [place] [address] documented as of this encounter
--- OUTSIDE RECORDS SUMMARY | 2022-01-25 13:45 | XMS_ITS | Encounter Summary ---
:1955 Author Organization [place] Address [address] [place] [address] Care Team Providers Name Role Phone Eldon Conway MD Primary Care Provider Reason for Visit Reason Comments RECHECK discuss upcoming surgery for thyroid Encounter Details Date Type Department Care Team Description 02/05/2010 Office Visit [facility] Deangelo Rosario, IN HOME TUTOR Thyroid Nodule; Clinic [facility] Neoplasm of Unspecified Natu re of Thyroid Gland [address] [facility] [address] [phone] [place], [place] [phone] (Wo rk) Social History Tobacco Use Types Packs/Day Years Used Date Never Smoker Alcohol Use Standard Drinks/Week Comments No 0 (1 standard drink = 0.6 oz pure alcoho l) Sex Assigned at Date Recorded Not on file documented as of this encounter Last Filed Vital Signs Vital Sign Reading Time Taken Comments Blood Pressure 106/64 02/05/2010 9:48 AM CDT Pulse 78 02/05/2010 9:48 AM CDT Temperature - - Respiratory Rate - - Oxygen Saturation - - Inhaled Oxygen Concentration - - Weight 62.1 kg (137 lb) 02/05/2010 9:48 AM CDT Height 156.2 cm (5' 1.5) 02/05/2010 9:48 AM CDT Body Mass Index 25.47 02/05/2010 9:48 AM CDT documented in this encounter Progress Notes Melvi Black - 02/06/2010 1:43 PM CDT Done.MELVI BLACK LPN Irma Rosario - 02/05/2010 9:51 AM CDT Images from the original note were not included. HPI Endocrinology [facility] [address] [place], [place] [id number] [facility] [address] [place], [place] [id number] Danielle Waldrop is a 54 year old female who is here for follow up of discuss possible thyroid surgery pt has appt with Dr. Alba on . Consult was originally requested by : Michelle Thomas Patient Complaints / concerns: wants to review the findings of the FNA and options for treatment again prior to visit with surgeon. She had a thyroid nodule which was checked by FNA and revealed : Atypia of Undetermined Significance. ?? The Microscopic interpretation is : Several of the smears show abundant watery colloid in the background. Cellularity is variable from low to moderate. ??Some of the follicular cells appear uniform in macro- and focal microfollicular arrangements. There are scattered macrophages. ??Several cell groups contain nuclear grooves. ??Diagnostic nuclearpseudoinclusions are not identified. ??The presence of colloid favors a benign process; however, the presence of nuclear grooves is an atypicalfeature. Discussed the details, ramifications and options with the patient and her daughter. Impression & PLAN / RECOMMENDATIONS: Impression: FNA of the thyroid Revealing atypical cells In a 1.3 cm nodule biopsied last month. 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 Assessment: Danielle Waldrop is a 54 year old female who was seen today for follow up consultation and evaluation of atypical FNA results of a thyroid nodule. . PLAN / Recommendations: Follow-up with endocrine surgery. Discussed with the patient that if the nodule is deemed malignant in the OR, then a total thyroidectomy would be performed. I would recommend central neck dissection for full evaluation of this nodule if there's evidence ofmalignancy, given the fact that there are collections of follicular cells noted on the microscopic evaluation. The presence of nuclear groups suggests the possibility of habitat or cancer, and the presence of follicular pockets suggests the possibility of PTC follicular variant. Follow up in 2 week(s) Postop. Future Issues to Review / Consider: Corresponding Action NA Spent 30 min with the patient in review of the treatment plan, DDX, potential outcomes, and side effects of meds as indicated. Answered questions in detail. ~~~~~~~~~~~~~~~~~~~~~~~~~~SUMMARY~~~~~~~~~~~~~~~~~~~~~~~~~~~~~~~~~~~~~~~~~Pertin ent Findings: (History, Exam, Labs, Imaging): As above. ROS Remainder of the ROS is negative, including Constitutional, Resp, CV, GI, Neuro, MS, , Skin, and Psychiatric, and Endocrine , except for the pertinent positives as noted. Vital signs: BP 106/64 Pulse 78 Ht 5' 1.5 (1.562 m) Wt 137 lb (62.143 kg) Estimated Body mass index is 25.47 kg/(m^2) as calculated from the following: Height as of this encounter: 5' 1.5(1.562 m). Weight as of this encounter: 137 lb(62.143 kg). Physical Exam No other exam was done. The entire visit length was spent in discussion of the findings, prognosis, treatment options, and future follow-up. Patient's questions are answered in detail. Irma Rosario MD [facility] documented in this encounter Nursing Notes 02/05/2010 9:30 AM CDT >> MELVI BLACK Mon Feb 05, 2010 9:51 AM Patient presents with: RECHECK - discuss upcoming surgery for thyroid initial BP 106/64 Pulse 78 Ht 5' 1.5 (1.562 m) Wt 137 lb (62.143 kg) Estimated Body mass index is 25.47 kg/(m^2) as calculated from the following: Height as of this encounter: 5' 1.5(1.562 m). Weight as of this encounter: 137 lb(62.143 kg).. 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
--- OUTSIDE RECORDS SUMMARY | 2022-01-25 13:45 | XMS_ITS | Encounter Summary ---
:1955 Author Organization [place] Address [address] [place] [address]. [place] [address] Care Team Providers Name Role Phone Eldon Conway MD Primary Care Provider Reason for Visit Reason Onset Date Comments Results 08/13/2006 please review lab an d send copy Encounter Details Date Type Department Care Team Description 08/13/2006 Telephone [facility] Eldon Conway, Result s (please review Clinic Cathy Wadsworth MD lab and send copy) [address] [place] [phone] Social History Tobacco Use Types Packs/Day Years Used Date Never Smoker Alcohol Use Standard Drinks/Week Comments No 0 (1 standard drink = 0.6 oz pure alcoho l) Sex Assigned at Date Recorded Not on file documented as of this encounter Miscellaneous Notes Telephone Encounter - Isabella Olivarez - 08/19/2006 3:24 PM CDT Letter sent to patient. Marily Morintt EMPLOYMENT SECURITY OFFICER Telephone Encounter - Sunni Shay - 08/18/2006 4:11 PM CDT What dose of lipitor? Lab Test 07/08/06 12/05 CHOL 274* 301* HDL 80 73 LDL 171* 196* TRIG 120 157* CHOLHDLRATIO 3.5 4.1 AST 27 07/08/2006 ALT 28 07/08/2006 Sunni Parks RN Telephone Encounter - Eldon Conway - 08/18/2006 8:31 AM CDT Low fat diet or lets have Her start lipitor Telephone Encounter - Sunni Shay - 08/13/2006 10:43 AM CST Pt calling for lab results from pe 07/08/06-please review and send letter with copy of results to home address. Call if questions to [phone] Ok to wait until next week Sunni Parks RN OR WIND INSTRUMENT REPAIRER documented in this encounter Plan of Treatment Not on filedocumented as of this encounter Visit Diagnoses Not on filedocumented in this encounter Care Teams Garden Labourer Relationship Specialty Start Date End Date Eldon Conway MD PCP - General 07/24/01 02/15/18 [address] [place] [address] documented as of this encounter
--- OUTSIDE RECORDS SUMMARY | 2022-01-25 13:45 | XMS_ITS | Encounter Summary ---
:1955 Author Organization [place] Address [address] [place] [address] Care Team Providers Name Role Phone Eldon Conway MD Primary Care Provider Encounter Details Date Type Department Care Team Description 12/03/2008 Hospital Pathology [facility] Bharath Tracy , [facility] Results [address] [place], [place] [address] (Wo rk) Social History [...] Diagnosis Comme nts CL AFF SURGICAL Routine 12/03/2008 12:25 AM Resul ts for this PATHOLOGY CDT procedure are i n the results section. documented in this encounter Results Hospital - SURGICAL PATHOLOGY (12/03/2008 12:25 AM CDT) Component Value Ref Test Analysis Performed At [facility] Range Method Time Signature Copath Report Patient Name: DANIELLE ROBB COPATH MR#: [id number] Specimen #: [id number] Collected: 12/03/2008 Received: 12/03/2008 Reported: 12/05/2008 13:04 Ordering Phy(s): BHARATH TRACY SPECIMEN(S): Appendix FINAL DIAGNOSIS: Appendix, resection - ? 1. ??Acute suppurative appendicitis. ? 2. ??No evidence of malignancy. Electronically signed out by: Carlo Abraham M.D. CLINICAL HISTORY: Appendicitis. GROSS: The specimen, labeled appendix, consists of a 7 x 0.8 x 0. 8 cm appendix with attached mesoappendix. ??The external surface is somewhat congested with a slight exudate. ??Technical Research Scientist sections. ??DCS/kd MICROSCOPIC: Microscopic examination was performed. MGP/sg 12-05-08 TESTING LAB LOCATION: [address] ??[address] COLLECTION SITE: Client: [facility] Location: PEDS (R) Specimen Anatomical Collection Method Collection Time Receive d Time (Source) Location / / Volume Laterality 12/03/2008 12:25 12/03/2008 9:19 AM CDT AM CDT Bharath Tracy MD LABORATORY Performing Organization Address City/State/ZIP Code Phon e Number [place] documented in this encounter Visit Diagnoses Not on filedocumented in this encounter Care Teams Process Laboratory Specialist Relationship Specialty Start Date End Date Eldon Conway MD PCP - General 07/24/01 02/15/18 [address] [place], [place] [id number] documented as of this encounter
--- OUTSIDE RECORDS SUMMARY | 2022-01-25 13:45 | XMS_ITS | Encounter Summary ---
:1955 Author Organization [place] Address [address] [place] [address] Care Team Providers Name Role Phone Eldon Conway MD Primary Care Provider Encounter Details Date Type Department Care Team Description 09/17/2005 Orders Only [facility] Eldon Conway, DIAGNO SIS NOT YET Clinic [place] MD DEFINED (Primary Dx) [address] [facility] [address] [place] [address] [phone] Social History Tobacco Use Types Packs/Day Years Used Date Never Smoker Alcohol Use Standard Drinks/Week Comments No 0 (1 standard drink = 0.6 oz pure alcoho l) Sex Assigned at Date Recorded Not on file documented as of this encounter Plan of Treatment Not on filedocumented as of this encounter Procedures Procedure Name Priority Date/Time Associated Diagnosis Comme nts COLONOSCOPY Routine 09/17/2005 DIAGNOSIS NOT YET DEFINED documented in this encounter Results COLONOSCOPY (09/17/2005) Specimen (Source) Anatomical Location Collection Method / Collectio n Time Received Time / Laterality Volume 09/17/2005 Narrative This result has an attachment that is no t available. Eldon Conway MD PROCEDURES documented in this encounter Visit Diagnoses Diagnosis DIAGNOSIS NOT YET DEFINED - Primary documented in this encounter Care Teams Associate Professor Of Management Relationship Specialty Start Date End Date Eldon Conway MD PCP - General 07/24/01 02/15/18 [address] [place], [place] [id number] documented as of this encounter
--- OUTSIDE RECORDS SUMMARY | 2022-01-25 13:45 | XMS_ITS | Encounter Summary ---
:1955 Author Organization [place] Address [address] [place] [address] Care Team Providers Name Role Phone Eldon Conway MD Primary Care Provider Reason for Visit Reason Comments Sinus Problem pressure, headache, drainage x2 weeks Encounter Details Date Type Department Care Team Description 05/13/2009 Office Visit [facility] Eldon Conway, Acute Maxillary Clinic [place] Sinusitis [address] [place] [address] [phone] Social History Tobacco Use Types Packs/Day Years Used Date Never Smoker Alcohol Use Standard Drinks/Week Comments No 0 (1 standard drink = 0.6 oz pure alcoho l) Sex Assigned at Date Recorded Not on file documented as of this encounter Last Filed Vital Signs Vital Sign Reading Time Taken Comments Blood Pressure 106/72 05/13/2009 11:06 AM RIPENING ROOM OPERATOR Pulse - - Temperature 36.7 ??C (98 ??F) 05/13/2009 11:06 AM RIPENING ROOM OPERATOR Respiratory Rate - - Oxygen Saturation - - Inhaled Oxygen Concentration - - Weight 60.3 kg (133 lb) 05/13/2009 11:06 AM RIPENING ROOM OPERATOR Height 156.2 cm (5' 1.5) 05/13/2009 11:06 AM RIPENING ROOM OPERATOR Body Mass Index 24.72 05/13/2009 11:06 AM RIPENING ROOM OPERATOR documented in this encounter Progress Notes Eldon Conway - 05/13/2009 12:49 PM CST SUBJECTIVE: Daneille Waldrop is a 53 year old female patient complaining of Sinus congestion for 14 day(s). OBJECTIVE: The patient appears alert and mild distress. EARS: External ears normal. Canals clear. TM's normal. NOSE/SINUS: positive findings: mucosa erythematous and swollen Sinus palpation: Maxillary sinus tender to palpation THROAT: mild erythema NECK:positive findings: moderate anterior cervical nodes CHEST: Clear ASSESSMENT: Acute Sinusitis PLAN: See orders. In addition, I have suggested that the patient push fluids NING ROOM OPERATOR documented in this encounter Nursing Notes 05/13/2009 11:00 AM CST >> FRENCH MARQUES Sat May 13, 2009 11:07 AM Patient presents with: Sinus Problem - pressure, headache, drainage x2 weeks Initial BP 106/72 Temp (Src) 98 ??F (36.7 ??C) (Oral) Ht 5' 1.5 (1.562 m) Wt 133 lb (60.328 kg) LMP Hysterectomy Body mass index is 24.72 kg/(m^2).. BP completed using cuff size regular French Marques CMA documented in this encounter Plan of Treatment Not on filedocumented as of this encounter Visit Diagnoses Diagnosis Acute maxillary sinusitis documented in this encounter Care Teams Duplicator Punch Set Up Operator Relationship Specialty Start Date End Date Eldon Conway MD PCP - General 07/24/01 02/15/18 [address] [place] [address] documented as of this encounter
--- OUTSIDE RECORDS SUMMARY | 2022-01-25 13:45 | XMS_ITS | Encounter Summary ---
:1955 Author Organization [place] Address [address] [place] [address] Care Team Providers Name Role Phone Eldon Conway MD Primary Care Provider Reason for Visit Reason Comments Radiology Visit Encounter Details Date Type Department Care Team Description 09/06/[address] [facility] Scr eening Mammogram [place] (Primary Dx) [address] [place] [address] Social History Tobacco Use Types Packs/Day Years Used Date Never Smoker Alcohol Use Standard Drinks/Week Comments No 0 (1 standard drink = 0.6 oz pure alcoho l) Sex Assigned at Date Recorded Not on file documented as of this encounter Plan of Treatment Not on filedocumented as of this encounter Procedures Procedure Name Priority Date/Time Associated Diagnosis Comme [facility] HC MAMMOGRAM, Routine 09/06/2008 Screening Mammogram Results for this SCREENING BILATERAL procedur e are in the results section . documented in this encounter Results MAMMOGRAM, SCREENING (09/06/2008) P athologist Signature MAMMOGRAM Anatomical Region Laterality Modality Other Impressions 09/06/2008 RADIOLOGIST'S INTERPRETATION: Breast parenchyma: ??fatty/mild densitie s IMAGING IMPRESSION: (CATEGORY-1) NEGATIVE Isma Bentley M.D. D/T: ??09/09/08 Eldon Conway MD SPECIAL IMAGING STUDIES documented in this encounter Visit Diagnoses Diagnosis Screening mammogram - Primary Other screening mammogram documented in this encounter Care Teams Hoop Bender Tank Relationship Specialty Start Date End Date Eldon Conway MD PCP - General 07/24/01 02/15/18 [address] [place] [address] documented as of this encounter
--- OUTSIDE RECORDS SUMMARY | 2022-01-25 13:45 | XMS_ITS | Encounter Summary ---
:1955 Author Organization [place] Address [address] [place] [address] Care Team Providers Name Role Phone Eldon Conway MD Primary Care Provider Reason for Visit Reason Onset Date Comments Nurse Advice Line 06/15/2007 sinus Encounter Details Date Type Department Care Team Description 06/15/2007 Telephone [facility] Eldon Conway, Nurse Advice Line [facility] [place] MD (sinus) [address] [place] [phone] [phone] Social History Tobacco Use Types Packs/Day Years Used Date Never Smoker Alcohol Use Standard Drinks/Week Comments No 0 (1 standard drink = 0.6 oz pure alcoho l) Sex Assigned at Date Recorded Not on file documented as of this encounter Miscellaneous Notes Telephone Encounter - Aarti Keyes - 06/15/2007 4:19 PM CST Pt calling again wondering if this has been addressed yet. Aarti Keyes RN. WAREHOUSE SPECIALIST Telephone Encounter - Mel Collins - 06/15/2007 9:07 AM CST Pt calls, has no insurance this month, c/o sinus sxs x 3-4 days, voice hoarse, nose swollen and hot, a lot of PND, bloody noses with green stuff, some sinus pain, burning across nose, hx of sinusitis, would like rx, call pt if tbl otherwise pt will f/u with pharmacy Mel Collins RN WAREHOUSE SPECIALIST documented in this encounter Plan of Treatment Not on filedocumented as of this encounter Visit Diagnoses Diagnosis Acute nasopharyngitis (common cold) - Pr imary documented in this encounter Care Teams Meteorological Engineer Relationship Specialty Start Date End Date Eldon Conway MD PCP - General 07/24/01 02/15/18 [address] [place] [address] documented as of this encounter
--- OUTSIDE RECORDS SUMMARY | 2022-01-25 13:45 | XMS_ITS | Encounter Summary ---
:1955 Author Organization [place] Address [address] [place] [address] Care Team Providers Name Role Phone Eldon Conway MD Primary Care Provider Reason for Referral - Closed Specialty Diagnoses / Procedures Referred By Contact Refer red To Contact Diagnoses Thyroid nodule Enlarged thyroid Michelle Goins MD [facility] [address] [place] [address] Fax: Referral ID Status Reason Start Date Expiration Date Visits Requ ested Visits Authorized [id number] Closed 11/28/2009 11/28/2009 1 1 Reason for Visit Reason Comments Irregular Heart Beat 4-5 days Encounter Details Date Type Department Care Team Description 11/24/2009 Office Visit [facility] Briseida, Jose J Spec ified Cardiac Dysrhythmias (Primary Dx); [facility] [place] Martinez MD Hyperlipidemia; [address] [facility] Enlarged Thyroid; [place], [place] [facility] Palpitations; [phone] [address] Thyroid Nodule [phone] [place] [address] (Wo rk) Social History Tobacco Use Types Packs/Day Years Used Date Never Smoker Alcohol Use Standard Drinks/Week Comments No 0 (1 standard drink = 0.6 oz pure alcoho l) Sex Assigned at Date Recorded Not on file documented as of this encounter Last Filed Vital Signs Vital Sign Reading Time Taken Comments Blood Pressure 122/70 11/24/2009 10:34 AM CDT Pulse 64 11/24/2009 10:34 AM CDT Temperature 36.1 ??C (96.9 ??F) 11/24/2009 10:34 AM CDT Respiratory Rate 14 11/24/2009 10:34 AM CDT Oxygen Saturation 100% 11/24/2009 10:34 AM CDT Inhaled Oxygen Concentration - - Weight 60.3 kg (133 lb) 11/24/2009 10:34 AM CDT Height - - Body Mass Index 24.72 05/13/2009 11:06 AM WELDING ESTIMATOR documented in this encounter Progress Notes Michelle Goins - 11/28/2009 11:04 PM CDT Addended by: SHABNAM GOINS on: 11/28/2009 Modules accepted: Orders Michelle Goins - 11/24/2009 11:05 AM CDT SUBJECTIVE: Danielle Waldrop is a 54 year old female is here for follow up of palpitations. Pt has palpitations since Friday, pt noticed mainly during night. Pt denied caffine use. Pt was told by cassandra GRAYSON chiropractor that her thyroid is boderline. Pt denied sob, chest pain, dizziness, headaches, fatigue. Pt has positive family h/o CAD in father. Pt does not smoke. Pt has hyperlipidemia. Not on medications. Pt denied HTN. Pt is fasting today. OBJECTIVE: BP 122/70 Pulse 64 Temp(Src) 96.9 ??F (36.1 ??C) (Tympanic) Resp 14 Wt 133 lb (60.328 kg) SpO2 100% NECK: Mildly enlarged thyroid Rt > Lt, no nodules felt LUNGS: CTA CVS: S1S2 regular, no murmurs ABD: soft, normal BS, NT ETM: Pulses+, no edema ASSESSMENT/PLAN : 427.89 Other Specified Cardiac Dysrhythmias (primary encounter diagnosis) Comment: R/o cardiac arrythmias Plan: ELECTROCARDIOGRAM, COMP W/READ Normal EKG 272.4R Hyperlipidemia Comment: Pt is not on meds Plan: A.M.A. LIPID PANEL, A.M.A. COMPREHENSIVE MET.PANEL Fasting today. Will start on statin depending on labs 240.9AR Enlarged Thyroid Comment: R/o thyroid disease Plan: TSH-, T4, FREE, SERUM, ANTI-THYROID MICROSOMAL AB, THYROID IMAGING, THYROGLOBULIN AB, SONO HEAD/NECK SOFT TISS Rt side is more enlarged than lt side 785.1 Palpitations Comment: R/o thyroid disorder Plan: TSH-, T4, FREE, SERUM, CBC WITH PLATELETS avoid caffine Follow up in 2-3 weeks, early if needed documented in this encounter Nursing Notes 11/24/2009 10:30 AM CDT >> ASHER ESCAMILLA FriNov 24, 2009 10:38 AM Patient presents with: Irregular Heart Beat - 4-5 days Initial BP 122/70 Pulse 64 Temp(Src) 96.9 ??F (36.1 ??C) (Tympanic) Resp 14 Wt 133 lb (60.328 kg) SpO2 100% Estimated Body mass index is 24.72 kg/(m^2) as calculated from the following: Height as of 05/13/09: 5' 1.5(1.562 m). Weight as of this encounter: 133 lb(60.328 kg). BP completed using cuff size regular, right arm Asher Escamilla LPN documented in this encounter Plan of Treatment Not on filedocumented as of this encounter Procedures Procedure Name Priority Date/Time Associated Diagnosis Comme nts HC US SOFT TISSUE Routine 11/28/2009 8:14 Enlarged thyroid Res ults for this HEAD/NECK AM CDT procedure are i n the results section. CL AFF CBC WITH Routine 11/24/2009 11:06 Palpitations Results for this PLATELETS AM CDT procedure are i n the results section. HCL COMPREHENSIVE Routine 11/24/2009 11:06 Hyperlipidemia Resu lts for this METABOLIC PANEL AM CDT procedure ar e in the results section. HCL THYROID Routine 11/24/2009 11:06 Enlarged Thyroid Results for this PEROXIDASE AM CDT procedure are i n (MICROSOMAL) AB the results section. HCL TSH Routine 11/24/2009 11:06 Enlarged Thyroi d Results for this AM CDT Palpitations procedure are i n the results section. HCL T4 FREE Routine 11/24/2009 11:06 Enlarged Thyroi d Results for this AM CDT Palpitations procedure are i n the results section. HCL THYROGLOBULIN AB Routine 11/24/2009 11:06 Enlarged Thyroid Results for this AM CDT procedure are i n the results section. CL AFF A.M.A. LIPID Routine 11/24/2009 11:06 Hyperlipidemia Re sults for this PANEL AM CDT procedure are i n the results section. ZZC Routine 11/24/2009 10:47 Other Specified Results for this ELECTROCARDIOGRAM, AM CDT Cardiac Dysrhythmias p rocedure are in COMP W/READ the results section. documented in this encounter Results SONO HEAD/NECK SOFT TISS (11/28/2009 8:14 AM CDT) Anatomical Region Laterality Modality Other Specimen (Source) Anatomical Collection Method Collection Time Re ceived Time Location / / Volume Laterality 11/28/2009 8:14 AM CDT Impressions 11/28/2009 2:50 PM CDT ULTRASOUND THYROID November 28, 2009 8:14:00 AM HISTORY: Enlarged thyroid. No prior imag ing. COMPARISON: None. FINDINGS: Thyroid ultrasound demonstrate s a normal sized gland. ??The right lobe measures 5.2 x 2.6 x 1.3 cm. The left lobe measures 4.6 x 1.4 x 1.2 cm. The isthmus is unremarkabl e. Thyroid parenchyma is homogenous ??in echotexture. Thyroid nodules as follows: Mildly hypoechoic 1.1 x 0.7 x 1.3 cm nod ule in the mid to lower right lobe. IMPRESSION: Single indeterminate nodule in the mid to lower right lobe. This is amenable to fine needle as piration if clinically indicated. Michelle Goins MD SPECIAL IMAGING STUDIES THYROGLOBULIN AB (11/24/2009 11:06 AM CDT) Patholo gist Method Time Signature Thyroglobulin <20 <40 IU/mL [facility] Specimen Anatomical Collection Method Collection Time Receive d Time (Source) Location / / Volume Laterality 11/24/2009 11:06 11/24/2009 AM CDT 11:07 AM CDT Michelle Goins MD LABORATORY Performing Organization Address City/State/ZIP Code Phon e Number [facility] [address] [place] [address] [facility] ANTI-THYROID MICROSOMAL AB (11/24/2009 11:06 AM CDT) athologist Signature Thyroid <10 <35 IU/mL [facility] Peroxidase [place] [facility] Antibody Specimen Anatomical Collection Method Collection Time Receive d Time (Source) Location / / Volume Laterality 11/24/2009 11:06 11/24/2009 AM CDT 11:07 AM CDT Michelle Goins MD LABORATORY Performing Organization Address City/State/ZIP Code Phon e Number [facility] [address] [place] [address] [facility] A.M.A. COMPREHENSIVE MET.PANEL (11/24/2009 11:06 AM CDT) athologist Signature Sodium 144 133 - 144 [place] mmol/L [facility]INIC LAB Potassium 4.4 3.4 - 5.3 [place] mmol/L [facility] Chloride 104 94 - 109 [place] mmol/L [facility] Carbon Dioxide 27 20 - 32 [place] mmol/L [facility] Anion Gap 13 6 - 17 [place] mmol/L [facility] Glucose 92 60 - 99 [place] mg/dL [facility] LAB Urea Nitrogen 13 7 - 30 [place] mg/dL [facility] LAB Creatinine 0.81 0.52 - [place] 1.04 mg/dL CLINIC LAB Comment: New IDMS-traceable calibration beginning 10/08/07 GFR Estimate 74 >60 mL/min/1.7m2 [place] [facility] GFR Estimate If Black 89 >60 mL/min/1.7m2 [facility] Calcium 9.8 8.5 - 10.4 mg/dL [place] [facility] Bilirubin Total 1.0 0.2 - 1.3 mg/dL [place] Albumin 4.6 3.9 - 5.1 g/dL [place] [facility] Comment: Reference range changed on 02/08. Protein Total 7.7 6.8 - 8.8 g/dL [place] [facility] Comment: As of 07, reference range reflects plasma specimen type. Alkaline Phosphatase 69 40 - 150 U/L [facility] ALT 25 0 - 50 U/L [facility] CLIN IC LAB AST 32 0 - 45 U/L [facility] IC LAB Specimen Anatomical Collection Method Collection Time Receive d Time (Source) Location / / Volume Laterality 11/24/2009 11:06 11/24/2009 AM CDT 11:07 AM CDT Michelle Goins MD LABORATORY Performing Organization Address City/[facility]/ZIP Code Phon e Number [facility] [address] [place] [address] [phone] [facility] (ABNORMAL) A.M.A. LIPID PANEL (11/24/2009 11:06 AM CDT) P athologist Signature Cholesterol 262 (H) 0 - 200 [facility] mg/dL CLINIC LAB Comment: LDL Cholesterol is the primary guide to therapy. The NCEP recommends further evaluation of: patients with cholesterol <200 mg/dL if additional risk factors are present, cholesterol >240 mg/dL, triglycerides >150 mg/dL, or HDL <40 mg/dL. Triglycerides 96 0 - 150 mg/dL [facility] HDL Cholesterol 70 50 - 110 mg/dL [facility] LDL Cholesterol Calculated 173 (H) 0 - 129 mg/dL [facility] Comment: LDL Cholesterol is the primary guide to therapy: LDL-cholesterol goal in high risk patients is <100 mg/dL and in very high risk patients is <70 mg/dL. VLDL-Cholesterol 19 0 - 30 mg/dL [facility] Cholesterol/HDL Ratio 3.8 0.0 - 5.0 [facility] Specimen Anatomical Collection Method Collection Time Receive d Time (Source) Location / / Volume Laterality 11/24/2009 11:06 11/24/2009 AM CDT 11:07 AM CDT Michelle Goins MD LABORATORY Performing Organization Address City/[facility]/ZIP Code Phon e Number [facility] [address] [facility] [place] [address] [phone] [facility] CBC WITH PLATELETS (11/24/2009 11:06 AM CDT) athologist Signature WBC 5.3 4.0 - 11.0 [place] 10e9/L [facility] RBC Count 4.55 3.8 - 5.2 [place] 10e12/L [facility] Hemoglobin 14.3 11.7 - [place] 15.7 g/dL [facility] Hematocrit 42.6 35.0 - [place] 47.0 % [facility] MCV 94 78 - 100 [facility] MCH 31.4 26.5 - [place] 33.0 pg [facility] MCHC 33.6 31.5 - [place] 36.5 g/dL [facility] RDW 12.3 10.0 - [place] 15.0 % [facility] Platelet Count 251 150 - 450 [facility] 10[facility]L [facility] Specimen Anatomical Collection Method Collection Time Receive d Time (Source) Location / / Volume Laterality 11/24/2009 11:06 11/24/2009 AM CDT 11:07 AM CDT Michelle Goins MD LABORATORY Performing Organization Address City/[facility]/ZIP Code Phon e Number [facility] [address] [place] [address] [facility] T4, FREE, SERUM (11/24/2009 11:06 AM CDT) athologist Signature T4 Free 1.10 0.70 - 1.85 [facility] ng/dL [facility] Specimen Anatomical Collection Method Collection Time Receive d Time (Source) Location / / Volume Laterality 11/24/2009 11:06 11/24/2009 AM CDT 11:07 AM CDT Michelle Goins MD LABORATORY Performing Organization Address City/State/ZIP Code Phon e Number [facility] [address] [place] [address] [facility] TSH- (11/24/2009 11:06 AM CDT) P athologist Signature TSH 1.01 0.4 - 5.0 [facility] mU/L [facility] Specimen Anatomical Collection Method Collection Time Receive d Time (Source) Location / / Volume Laterality 11/24/2009 11:11/24/2009 AM CDT 11:07 AM CDT Michelle Goins MD LABORATORY Performing Organization Address City/State/ZIP Code Phon e Number [facility] [address] [place] [address] [facility] ELECTROCARDIOGRAM, COMP W/READ (11/24/2009 10:47 AM CDT) Narrative This result has an attachment that is no t available. Michelle Goins MD EKG TECHNICAL documented in this encounter Visit Diagnoses Diagnosis Other specified cardiac dysrhythmias(427 .89) - Primary Other specified cardiac dysrhythmias Hyperlipidemia Other and unspecified hyperlipidemia Enlarged thyroid Goiter, unspecified Palpitations Thyroid nodule Nontoxic uninodular goiter documented in this encounter Care Teams Precipitate Washer Relationship Specialty Start Date End Date Eldon Conway MD PCP - General 07/24/01 02/15/18 [address] [place] [address] documented as of this encounter
--- OUTSIDE RECORDS SUMMARY | 2022-01-25 13:45 | XMS_ITS | Encounter Summary ---
:1955 Author Organization [facility] Address [address] [place] [address] Care Team Providers Name Role Phone Eldon Conway MD Primary Care Provider Encounter Details Date Type Department Care Team Description 09/21/2007 Therapy Visit [facility] Gurjit Welch OTHER B ACK SYMPTOMS; Orthopedic J, [place] SOMAT DYSFUNC SACRAL REG; [facility] [facility] REVIVE WELLNESS SOMAT DYSFUNC LOWER EXTR; [address], [place] [address] [place] [facility] [address] [address] [place] [address] [place], [place] [id number] Social History Tobacco Use Types Packs/Day Years Used Date Never Smoker Alcohol Use Standard Drinks/Week Comments No 0 (1 standard drink = 0.6 oz pure alcoho l) Sex Assigned at Date Recorded Not on file documented as of this encounter Progress Notes Gurjit Jarrett - 12/04/2007 2:48 PM CDT Addended by: GURJIT JARRETT on: 12/04/2007 2:48:05 PM Modules accepted: Orders Gurjit Jarrett - 09/21/2007 9:51 AM CDT Visit # 2 Subjective: No change overall. Objective: No change Assessment: 724.8, 739.4, 739.6, 719.45 Plan: SMT Done SI Left-drop piece and side posture Left hip-LAD Therapy Done Type: STM-brief Active Care Therapuetic exercises for core strength for the lower back. Bridging -Lvl 1&2, opp arm/opp leg, medial glute-clam. Added hamstring and IT band stretch, reviewed bridging-lvl 2. Notes/Comments: RTC w/ in one week. documented in this encounter Plan of Treatment Not on filedocumented as of this encounter Procedures Procedure Name Priority Date/Time Associated Diagnosis Comme nts [facility] THERAPEUTIC Routine 12/04/2007 2:48 PM Other Symptoms EXERCISES CDT Referable to [place] Nonallopathic Lesion of Sacral Region, not Elsewhere Classi fied Nonallopathic Lesion of Lower Extremities, not Elsewhere Classified Pain in Joint, Pelvic Region and Thigh [facility] CHIROPRA Routine 09/21/2007 9:51 AM Other Back Sy mptoms MANIP,EXTRASP W/ MULT CDT Somat Dysfunc Sacra l PROC Reg Somat Dysfunc Lower Extr Joint Pain-Pelvis [facility] CHIROPRA Routine 09/21/2007 9:51 AM Other Back Sy mptoms MANIP,SPINAL,1-2 REGIONS CDT Somat Dysfunc Sa cral Reg Somat Dysfunc Lower Extr Joint Pain-Pelvis documented in this encounter Visit Diagnoses Diagnosis Other symptoms referable to back Nonallopathic lesion of sacral region, n ot elsewhere classified Nonallopathic lesion of lower extremitie s, not elsewhere classified Pain in joint, pelvic region and thigh documented in this encounter Care Teams Mash Preparatory Operator Relationship Specialty Start Date End Date Eldon Conway MD PCP - General 07/24/01 02/15/18 [address] [place] [address] documented as of this encounter
--- OUTSIDE RECORDS SUMMARY | 2022-01-25 13:45 | XMS_ITS | Encounter Summary ---
:1955 Author Organization [facility] Address [address] [place] [address] Care Team Providers Name Role Phone Eldon Conway MD Primary Care Provider Encounter Details Date Type Department Care Team Description 09/22/[address] [facility] Eldon Conway, DIAGNO SIS NOT YET Clinic [place] DEFINED (Primary Dx) [address] [facility] [id number] [place] [phone] [id number] Social History Tobacco Use Types Packs/Day Years Used Date Never Smoker Alcohol Use Standard Drinks/Week Comments No 0 (1 standard drink = 0.6 oz pure alcoho l) Sex Assigned at Date Recorded Not on file documented as of this encounter Plan of Treatment Not on filedocumented as of this encounter Procedures Procedure Name Priority Date/Time Associated Diagnosis Comme [facility] POLYSOMNOGRAPHY, 4 OR MORE Routine 09/22/2005 DIAGNOSIS NOT YET DEFINED documented in this encounter Results POLYSOMNOGRAPHY, 4 OR MORE (09/22/2005) Specimen (Source) Anatomical Location Collection Method / Collectio n Time Received Time / Laterality Volume 09/22/2005 Narrative This result has an attachment that is no t available. Eldon Conway MD PROCEDURES documented in this encounter Visit Diagnoses Diagnosis DIAGNOSIS NOT YET DEFINED - Primary documented in this encounter Care Teams Pulvi Mixer Operator Relationship Specialty Start Date End Date lEdon Conway MD PCP - General 07/24/01 02/15/18 [address] [place] [address] documented as of this encounter
--- OUTSIDE RECORDS SUMMARY | 2022-01-25 13:45 | XMS_ITS | Encounter Summary ---
:1955 Author Organization [place] Address [address] [place] [address] Care Team Providers Name Role Phone Eldon Conway MD Primary Care Provider Reason for Visit Reason Onset Date Comments Other 01/17/2010 questions regarding surgery Encounter Details Date Type Department Care Team Description 01/17/2010 Telephone [facility] Deangelo Rosario, FILM FLAT INSPECTOR Other (questions Clinic [facility] regarding surgery) [address] [place] [address] [facility] [facility] [phone] [place] [address] (Wo rk) Social History Tobacco Use Types Packs/Day Years Used Date Never Smoker Alcohol Use Standard Drinks/Week Comments No 0 (1 standard drink = 0.6 oz pure alcoho l) Sex Assigned at Date Recorded Not on file documented as of this encounter Miscellaneous Notes Telephone Encounter - Josselyn Kapoor - 01/18/2010 4:31 PM CDT Spoke with pt and gave her the number to surgical consultants. She is going to have surgery. I have told her that I thought it would be best to see Dr. Rosario to discuss but she could go ahead and schedule a consult with a surgeon as well. She will keep both appointments at this time. Telephone Encounter - Hayde Perez - 01/17/2010 12:04 PM CDT Patient calling, she has decided she would like to have the surgery, Does she need to keep her appointment with you-please advise She can be reached on cell phone [phone] OK to leave message documented in this encounter Plan of Treatment Not on filedocumented as of this encounter Visit Diagnoses Not on filedocumented in this encounter Care Teams Roof Service Technician Relationship Specialty Start Date End Date Eldon Conway MD PCP - General 07/24/01 02/15/18 [address] [place] [address] documented as of this encounter
--- OUTSIDE RECORDS SUMMARY | 2022-01-25 13:45 | XMS_ITS | Encounter Summary ---
:1955 Author Organization [place] Address [facility] [place] [address] Care Team Providers Name Role Phone Eldon Conway MD Primary Care Provider Encounter Details Date Type Department Care Team Description 09/04/2006 Results Only [facility] Eldon Conway MD Hospital Results [address] [place] [address] (Wo rk) Social History Tobacco Use Types Packs/Day Years Used Date Never Smoker Alcohol Use Standard Drinks/Week Comments No 0 (1 standard drink = 0.6 oz pure alcoho l) Sex Assigned at Date Recorded Not on file documented as of this encounter Plan of Treatment Scheduled Orders Name Type Priority Associated Diagnoses Order S chedule Mammo screening* Imaging Routine Ordered: documented as of this encounter Procedures Procedure Name Priority Date/Time Associated Diagnosis Comme [facility] MAMMOGRAM, Routine 09/04/2006 9:39 AM Results for this SCREENING BILATERAL CDT procedur e are in the results section. documented in this encounter Results MAMMOGRAM, SCREENING (09/04/2006 9:39 AM CDT) Specimen (Source) Anatomical Collection Method Collection Time Re ceived Time Location / / Volume Laterality 09/04/2006 9:39 AM CDT Impressions RADIOLOGY RESULTS - 09/17/2006 3:28 PM C DT Exam: Bilateral screening mammography History/Comparison: ??Routine screening. [facility] ??05-30-05 [facility] ?? 07-06-02 Breast parenchyma: Fatty breast tissue d ensity Findings: Negative Impression: Category 1. Negative. This exam was evaluated with the assista nce of computer aided detection (CAD). Eldon Conway MD SPECIAL IMAGING STUDIES Performing Organization Address City/State/ZIP Code Phon e Number RADIOLOGY RESULTS documented in this encounter Visit Diagnoses Not on filedocumented in this encounter Care Teams Merchandise Processor Relationship Specialty Start Date End Date Eldon Conway MD PCP - General 07/24/01 02/15/18 [address] [place] [address] documented as of this encounter
--- OUTSIDE RECORDS SUMMARY | 2022-01-25 13:45 | XMS_ITS | Encounter Summary ---
:1955 Author Organization [place] Address [address] [place] [address] Care Team Providers Name Role Phone Eldon Conway MD Primary Care Provider Reason for Visit Reason Comments Derm Problem genital wart--cut off while shaving and currently having excessive bleeding Encounter Details Date Type Department Care Team Description 05/20/2009 Office Visit [facility] Yokasta Ramirez Lacerat ion (Primary Clinic [place] Dx) [address] [place] [phone] [phone] Social History Tobacco Use Types Packs/Day Years Used Date Never Smoker Alcohol Use Standard Drinks/Week Comments No 0 (1 standard drink = 0.6 oz pure alcoho l) Sex Assigned at Date Recorded Not on file documented as of this encounter Last Filed Vital Signs Vital Sign Reading Time Taken Comments Blood Pressure 124/80 05/20/2009 8:44 AM 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 She cannot get the area to stop bleeding. She has had this spot for over 20 years. It has not spread or bothered her before. Past Medical History Diagnosis Date ??? MEDICAL HISTORY OF - POLYSONSOGRAPHY NEG IN 06 Past Surgical History Procedure Date ??? Nonspecific procedure hysterectomy MEDICATIONS: Current Outpatient Rx Name Route Sig Dispense Refill ??? LEVAQUIN 500 MG OR TABS Oral ONE DAILY 10 0 ??? MEDS UNK - RECORDS REQUESTED progesterone cream 15%--apply BID 0 ??? TESTOSTERONE PROPIONATE 2 % TD CREA Transdermal apply QD 0 SOCIAL HISTORY: History Substance Use Topics ??? Tobacco Use: Never ??? Alcohol Use: No Family History Problem Relation ??? Heart Paternal Grandfather heart attack early 50's ??? Heart Father heart attack at 76 ??? Alzheimers Mother ??? Osteoporosis Mother ??? Depression Mother Objective: Blood pressure 124/80, pulse 88, temperature 98 ??F (36.7 ??C), temperature source Oral, resp. rate 16, weight 132 lb (59.875 kg), last menstrual period Hysterectomy. Perineum: small 2mm purplish papule with 1mm fissure which is oozing slightly - no other bumps or warts noted Assessment: 1. Laceration of Papule - does not appear to be wart Plan: 1. Silver nitrate used and bleeding easily stopped 2. Letter written for work 3. 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 BP completed using cuff size regular. Lorene Washburn/BYRON documented in this encounter Plan of Treatment Not on filedocumented as of this encounter Visit Diagnoses Diagnosis Laceration - Primary Open wound(s) (multiple) of unspecified site(s), without mention of complication documented in this encounter Care Teams Flatbed Driver Relationship Specialty Start Date End Date Eldon Conway MD PCP - General 07/24/01 02/15/18 [address] [place] [address] documented as of this encounter
--- OUTSIDE RECORDS SUMMARY | 2022-01-25 13:45 | XMS_ITS | Encounter Summary ---
:1955 Author Organization [facility] Address [address] [place] [address] Care Team Providers Name Role Phone Eldon Conway MD Primary Care Provider Encounter Details Date Type Department Care Team Description 09/22/2005 Historic Manager Of Business Neurosurgery Clin ic Cristina Beavers-Jose Warner MD [address] Floor, Clinic [address] [phone] Social History Tobacco Use Types Packs/Day Years Used Date Never Smoker Alcohol Use Standard Drinks/Week Comments No 0 (1 standard drink = 0.6 oz pure alcoho l) Sex Assigned at Date Recorded Not on file documented as of this encounter Progress Notes Cristina Beavers MD - 05/14/2011 11:18 PM WARPER FIXER PRELIMINARY SUMMARY: Danielle Robb underwent an overnight polysomnography which records 404 minutes of sleep. Respiratory disturbance index is noted at 3 events per hour only. No significant EMG abnormalities are seen during this study. No significant EEG abnormalities were seen during this study. Occasional PVCs are noted during this study. Following the overnight polysomnography MSLT was obtained. This was within normal limits with a mean sleep latency of 13.8 minutes and no REM onsets during this. IMPRESSION: Overnight polysomnography and MSLT does demonstrate intermittent moderate snoring, but is not notable for clinically significant obstructive sleep apnea. MSLT did not indicate evidence of pathologic daytime drowsiness. Clinical correlation is recommended. CRISTINA BEAVERS MD MT: isaias Name: DANIELLE ROBB Account: [id number] : 1955 Visit Date: 09/22/2005 Document: [id number] ER FIXER documented in this encounter Plan of Treatment Not on filedocumented as of this encounter Visit Diagnoses Not on filedocumented in this encounter Care Teams Engineer Technical Staff Relationship Specialty Start Date End Date Eldon Conway MD PCP - General 07/24/01 02/15/18 [address] [place] [address] documented as of this encounter
--- OUTSIDE RECORDS SUMMARY | 2022-01-25 13:45 | XMS_ITS | Encounter Summary ---
:1955 Author Organization [facility] Address [address] [place] [address] Care Team Providers Name Role Phone Eldon Conway MD Primary Care Provider Reason for Visit Reason Comments Consult Encounter Details Date Type Department Care Team Description 01/02/2010 Office Visit [facility] Deangelo Rosario, MASTIC SPRAYER Thyroid Nodule; Clinic [facility] Palpitations; [address] [facility] Hot Flushes [address] [address] [place] [address] [phone] (Wo rk) Social History Tobacco Use Types Packs/Day Years Used Date Never Smoker Alcohol Use Standard Drinks/Week Comments No 0 (1 standard drink = 0.6 oz pure alcoho l) Sex Assigned at Date Recorded Not on file documented as of this encounter Last Filed Vital Signs Vital Sign Reading Time Taken Comments Blood Pressure 108/62 01/02/2010 10:10 AM CDT Pulse 80 01/02/2010 10:10 AM CDT Temperature - - Respiratory Rate - - Oxygen Saturation - - Inhaled Oxygen Concentration - - Weight 61.7 kg (136 lb) 01/02/2010 10:10 AM CDT Height 156.2 cm (5' 1.5) 01/02/2010 10:10 AM CDT Body Mass Index 25.28 01/02/2010 10:10 AM CDT documented in this encounter Progress Notes Irma Rosario - 01/02/2010 10:08 AM CDT Images from the original note were not included. HPI Endocrinology [facility] [address] [place], [place] [address] [facility] [address] [place], [place] [id number] Endocrinology Consultation (or referral) requested by: Dr. Goins PCP : Eldon Conway MD, MD, Referring provider: Dr. Michelle Goins, Reason for Consultation: Thyroid nodule. Thyroid US done 11-28-09. A single nodule in mid-lower rt lobe. Duration of the problem: Discovered in November 2009. Was seen by Dr. Goins for follow up of palpitations. Pt had palpitations for a few days, mainly overnight. She was seeing a chiropractor who practices alternative / hollistic medicine. He told her that her thyroid is abnormal. Current symptoms, associated Triggers, and Alleviating factors: Occasional palpitations, no difficulty swallowing, no voice changes, no RUGGIERO, no vision changes, no hot flushes, no tremors. Current Treatment:(Endocrine related medications, doses and times): none Prior evaluation (scans, labs), and treatment (if not at [facility]) : NA ~~~~~~~~~~~~~~~~~~~~~~~~~~~~~~~~~~~~~~~~~~~~SUMMARY~~~~~~~~~~~~~~~~~~~~~~~~~~~~~ ~~~~~~~~~~~~ Pertinent Findings: (History, Exam, Labs, Imaging): Of note, she has also seen a urologist who had provided bio-equivalent testosterone for her. She has noted some increased facial hair after this. Was started for sexual function, energy, and also thought that if she improves her hormones it wouldbe good for her heart. ECG done in the clinic is somewhat suspicious for Delta waves. Significant since her son has an arrythmia and was assessed by Peds Cards. Impression & PLAN / RECOMMENDATIONS: Assessment: Danielle Waldrop is a 54 year old female who was seen today for consultation, evaluation, and management of a thyroid nodule, and extended to include hormonal assessment for testosterone deficiency, potential cardiac arrhythmia, and hyperlipidemia in the setting of a strong family hx of heart disease. .. Impression: The thyroid nodule ultrasound was reviewed in person. Discussed the epidemiology of thyroid nodules,and thyroid cancer risk, with the patient. Discussed the criteria used to determine need for cytology evaluation of the nodule(s), and reviewed the Fine Needle Aspiration (FNA) technique. Discussed potential FNA cytology results and the therapeutic, follow up, approach to each. Her nodule is larger than 1 cm, is hypoechoic, and has some increased vascularity. No microcalcifications seen. PLAN / Recommendations: 1. Recommend that she have u/s guided FNA of the thyroid nodule. 2. Recommended that she f/u with PCP, and also discuss her ECG with the son's neon molder, since itmay affect their decision making. 3. Recommended that stop use of the topical testosterone 4. Will check labs. 5. Discussed her elevated LDL, and sig FHx of CAD. Strongly recommend that she start on a cholesterol lowering medication, i.e. Statin. 6. Would also consider use of Estrogen replacement in her given no FHx or PMHx of breast cancer, andneed for unopposed estrogen, and recent onset of menopause. Recent recommendations suggest that early use of estrogen in women younger than 55-60 would actually be beneficial for cardiac risk reductionw/o change in breast cancer risk, while helping bone density. Will f/u for these last two issues. 241.0B Thyroid Nodule 785.1 Palpitations 627.2Y Hot Flushes and Orders Placed This Encounter ??? Fine needle aspiration; w/ imaging guidance ??? Tsh- ??? T4, free, serum ??? T3, total ? ? Testosterone, free & total ??? Lh, serum ??? Fsh (gonadotropin) ??? Estradiol Follow up after labs, and u/s guided FNA are done to review results in person. Future Issues to Review / Consider: Corresponding Action See above. Spent 60 min with the patient in review of the treatment plan, DDX, potential outcomes, and side effects of meds as indicated. Answered questions in detail. ~~~~~~~~~~~~~~~~~~~~~~~~~~~~~~~~~~~~~~~~~~~~~~~~~~~~~~~~~~~~~~~~ Cont HPI: Thyroid nodule as above. Has avoided use of meds for lowering LDL. But has been on testosterone cream to help with heart health and sexual function. Also, notes that the testosterone level never came up and so the dose was increased. S/p lap hyst. Has ovaries. No hx of br lumps. She has had some palpitations. Son was dx with arrythmia . Review of Systems Constitutional: Positive for malaise/fatigue and diaphoresis. Negative for weight loss. Eyes: Negative. Cardiovascular: Positive for palpitations (as above). Negative for chest pain. Skin: Negative for rash and itching. Neurological: Negative for tremors and headaches. Endo/Heme/Allergies: Some pain at the thyroid, no swallowing difficulty, had two episodes of palpitations, that woke herup. When checked in clinic no events were noted. Vital signs: BP 108/62 Pulse 80 Ht 5' 1.5 (1.562 m) Wt 136 lb (61.689 kg) Estimated Body mass index is 25.28 kg/(m^2) as calculated from the following: Height as of this encounter: 5' 1.5(1.562 m). Weight as of this encounter: 136 lb(61.689 kg). Physical Exam Vitals reviewed. Constitutional: She is oriented to person, place, and time. No distress. HENT: Head: Normocephalic and atraumatic. Eyes: Conjunctivae and extraocular motions are normal. Pupils are equal, round, and reactive to light. No scleral icterus. Neck: Normal range of motion. Neck supple. No tracheal deviation present. Thyromegaly (both lobes are slightly enlarged, but no nodular density is noted on the eam.) present. Cardiovascular: Normal rate and regular rhythm. Pulmonary/Chest: Effort normal and breath sounds normal. She has no rales. Abdominal: Soft. Bowel sounds are normal. She exhibits no mass. She has no rebound. Musculoskeletal: Normal range of motion. She exhibits no edema and no tenderness. Lymphadenopathy: She has no cervical adenopathy. Neurological: She is alert and oriented to person, place, and time. She displays normal reflexes. Skin: Skin is warm and dry. No rash noted. She is not diaphoretic. No erythema. No pallor. Psychiatric: Mood and affect normal. Labs and Imaging Studies: Component Latest Ref Rng 04/14/2008 11/24/2009 WBC 4.0 - 11.0 10e9/L 5.8 5.3 RBC 3.8 - 5.2 10e12/L 4.37 4.55 HGB 11.7 - 15.7 g/dL 13.7 14.3 HEMATOCRIT 35.0 - 47.0 % 41.4 42.6 MCV 78 - 100 fl 95 94 MCH 26.5 - 33.0 pg 31.4 31.4 MCHC 31.5 - 36.5 g/dL 33.1 33.6 RDW 10.0 - 15.0 % 12.3 12.3 PLATELET COUNT 150 - 450 10e9/L 262 251 SODIUM 133 - 144 mmol/L 144 POTASSIUM 3.4 - 5.3 mmol/L 4.4 CHLORIDE 94 - 109 mmol/L 104 CARBON DIOXIDE 20 - 32 mmol/L 27 ANION GAP 6 - 17 mmol/L 13 GLUCOSE 60 - 99 mg/dL 92 UREA NITROGEN 7 - 30 mg/dL 13 CREATININE 0.52 - 1.04 mg/dL 0.81 GFR ESTIMATE Low: >60 mL/min/1.7m2 74 GFR ESTIMATE, IF BLACK Low: >60 mL/min/1.7m2 89 CALCIUM, TOTAL 8.5 - 10.4 mg/dL 9.8 BILIRUBIN TOTAL 0.2 - 1.3 mg/dL 1.0 ALBUMIN 3.9 - 5.1 g/dL 4.6 PROTEIN, TOTAL 6.8 - 8.8 g/dL 7.7 ALKALINE PHOSPHATASE 40 - 150 U/L 69 ALT 0 - 50 U/L 25 AST 0 - 45 U/L 32 CHOLESTEROL 0 - 200 mg/dL 240 (H) 262 (H) TRIGLYCERIDES 0 - 150 mg/dL 82 96 HDL 50 - 110 mg/dL 78 70 LDL CHOLESTEROL CALCULATED 0 - 129 mg/dL 145 (H) 173 (H) VLDL-CHOLESTEROL 0 - 30 mg/dL 16 19 CHOLESTEROL/HDL RATIO 0.0 - 5.0 3.1 3.8 THYROID 0.4 - 5.0 mU/L 0.77 1.01 T4 FREE 0.70 - 1.85 ng/dL 1.10 THYR PEROXIDASE BLOSSOM Low: <35 IU/mL <10 THYROGLOBULIN BLOSSOM Low: <40 IU/mL <20 For assessment, plan and RECOMMENDATIONS, please refer to summary section above, in the beginning ofnote. Irma Rosario MD [facility] (CC: Dr. Goins) (CC: Dr. Eldon Conway MD) documented in this encounter Nursing Notes 01/02/2010 10:00 AM CDT >> RENÉE BLACK Tujamel Jan 02, 2010 10:13 AM Patient presents with: Consult initial BP 108/62 Pulse 80 Ht 5' 1.5 (1.562 m) Wt 136 lb (61.689 kg) Estimated Body mass index is 25.28 kg/(m^2) as calculated from the following: Height as of this encounter: 5' 1.5(1.562 m). Weight as of this encounter: 136 lb(61.689 kg).. bp completed using cuff size regular RENÉE BLACK LPN documented in this encounter Plan of Treatment Not on filedocumented as of this encounter Procedures Procedure Name Priority Date/Time Associated Diagnosis Comme nts HCL FINE NEEDLE Routine 01/04/2010 2:25 PM Thyroid Nodul e Results for this ASPIR,SUPERFICIAL CDT Hot Flushes procedure are in the results section. HCL T3, TOTAL Routine 01/02/2010 11:15 AM Thyroid Nodu le Results for this CDT Hot Flushes procedure are i n the results section. HCL TSH Routine 01/02/2010 11:15 AM Thyroid Nodu le Results for this CDT Hot Flushes procedure are i n the results section. HCL T4 FREE Routine 01/02/2010 11:15 AM Thyroid Nodu le Results for this CDT Hot Flushes procedure are i n the results section. HCL LH Routine 01/02/2010 11:15 AM Palpitations Results for this CDT Hot Flushes procedure are i n the results section. HCL ESTRADIOL Routine 01/02/2010 11:15 AM Palpitations Results for this CDT Hot Flushes procedure are i n the results section. TESTOSTERONE, FREE Routine 01/02/2010 11:15 AM Thyroid N odule Results for this & TOTAL CDT Hot Flushes procedure are i n the results section. HCL FSH Routine 01/02/2010 11:15 AM Palpitations Results for this CDT Hot Flushes procedure are i n the results section. documented in this encounter Results FINE NEEDLE ASPIR,SUPERFICIAL (01/04/2010 2:25 PM CDT) Patholo gist Method Time Signature [facility] RADIOLOGY RESULT ULTRASOUND BIOPSY THYROID FINE NEEDLE ASPIRATION ??Jan 04, 2010 2:25 PM RESULTS HISTORY: Dominant right thyroid nodule. COMPARISON: None. TECHNIQUE: Following discussion of the procedure and its ris ks, written informed consent was obtained. The skin of the neck was sterilely prepped and draped in the usual fashion. Under dir ect sonographic guidance, three 25-gauge needles were placed int o the solid right thyroid nodule and fine needle aspiration biopsy was performed. There was no immediate complication. IMPRESSION: Uneventful right thyroid nodule biopsy. Specimen (Source) Anatomical Collection Method Collection Time Re ceived Time Location / / Volume Laterality 01/04/2010 2:25 PM CDT Irma Rosario NP LABORATORY Performing Organization Address City/State/ZIP Code Phon e Number RADIOLOGY RESULTS ESTRADIOL (01/02/2010 11:15 AM CDT) P athologist Signature Estradiol 11 pg/mL [facility] Comment: Estradiol Reference Range Female ? Follicular ? 11-165 pg/mL ? Mid-cycle ?146-526 pg/mL ? Luteal ? 33-196 pg/mL ? Postmenopausal (untreated) <37 pg/mL Specimen Anatomical Collection Method Collection Time Receive d Time (Source) Location / / Volume Laterality 01/02/2010 11:15 01/02/2010 AM CDT 11:20 AM CDT Irma Rosario NP LABORATORY Performing Organization Address City/State/ZIP Code Phon e Number [facility] [address] LABS FSH (GONADOTROPIN) (01/02/2010 11:15 AM CDT) P athologist Signature FSH 29.8 IU/L [facility] Comment: FSH Reference Range Female: Follicular ?2.5-10.2 ? Mid-cycle ? 3.4-33.4 ? Luteal ?1.5-9. 1 ? Postmenopausal ??23.0-116.3 Specimen Anatomical Collection Method Collection Time Receive d Time (Source) Location / / Volume Laterality 01/02/2010 11:15 01/02/2010 AM CDT 11:20 AM CDT Irma Rosario NP LABORATORY Performing Organization Address City/[facility]/ZIP Code Phon e Number [facility] [address] LABS LH, SERUM (01/02/2010 11:15 AM CDT) P athologist Signature Lutropin 19.3 IU/L [facility] Comment: LH Reference Range Female: Follicular ?1.9-12.5 ? Mid-cycle ? 8.7-76.3 ? Luteal ?0.5-16 .9 ? Postmenopausal ??15.9-54.0 Specimen Anatomical Collection Method Collection Time Receive d Time (Source) Location / / Volume Laterality 01/02/2010 11:15 01/02/2010 AM CDT 11:20 AM CDT Irma Rosario NP LABORATORY Performing Organization Address City/State/ZIP Code Phon e Number [facility] [address] LABS (ABNORMAL) TESTOSTERONE, FREE & TOTAL (01/02/2010 11:15 AM CDT) Patholo gist Method Time Signature Percent 1.8 1.0 - 3.8 [facility] Testosterone Free % [facility] Testosterone 142 (H) 14 - 75 [facility] Total ng/dL [facility] Testosterone Free 2.6 (H) 0.1 - 1.5 [facility] ng/dL [facility] Comment: Analyte Specific Reagents (ASRs) are use d in many laboratory tests necessary for standard medical care and generally do not require FDA approval. ??This test was developed and its preformance character istics determined by [facility]. ? ?It has not been cleared or approved by the U.S. Food and Drug Administration. Specimen Anatomical Collection Method Collection Time Receive d Time (Source) Location / / Volume Laterality 01/02/2010 11:15 01/02/2010 AM CDT 11:20 AM CDT Irma Rosario NP LABORATORY Performing Organization Address City/State/ZIP Code Phon e Number [address] [address] [facility] T3, TOTAL (01/02/2010 11:15 AM CDT) Patholo gist Method Time Signature Triiodothyronine 83 60 - 181 [facility] (T3) ng/dL [facility] Specimen Anatomical Collection Method Collection Time Receive d Time (Source) Location / / Volume Laterality 01/02/2010 11:15 01/02/2010 AM CDT 11:20 AM CDT Irma Rosario NP LABORATORY Performing Organization Address City/State/ZIP Code Phon e Number [address] [address] [facility] T4, FREE, SERUM (01/02/2010 11:15 AM CDT) P athologist Signature T4 Free 0.96 0.70 - 1.85 [facility] ng/dL CLINIC LAB Specimen Anatomical Collection Method Collection Time Receive d Time (Source) Location / / Volume Laterality 01/02/2010 11:15 01/02/2010 AM CDT 11:20 AM CDT Irma Rosario NP LABORATORY Performing Organization Address City/State/ZIP Code Phon e Number [facility] [address] [place] [address] [facility] TSH- (01/02/2010 11:15 AM CDT) P athologist Signature TSH 0.88 0.4 - 5.0 [facility] mU/L [facility] Specimen Anatomical Collection Method Collection Time Receive d Time (Source) Location / / Volume Laterality 01/02/2010 11:15 01/02/2010 AM CDT 11:20 AM CDT Irma Rosario NP LABORATORY Performing Organization Address City/State/ZIP Code Phon e Number [facility] [address] [place] [address] [facility] documented in this encounter Visit Diagnoses Diagnosis Thyroid nodule Nontoxic uninodular goiter Palpitations Hot flushes Symptomatic menopausal or female climact dickson states documented in this encounter Care Teams Medical Care Evaluation Specialist Relationship Specialty Start Date End Date Eldon Conway MD PCP - General 07/24/01 02/15/18 [address] [place], [place] [id number] documented as of this encounter
--- OUTSIDE RECORDS SUMMARY | 2022-01-25 13:45 | XMS_ITS | Encounter Summary ---
:1955 Author Organization [facility] Address [address] [place] [address] Care Team Providers Name Role Phone Eldon Conway MD Primary Care Provider Encounter Details Date Type Department Care Team Description 12/03/[address] [facility] Bharath Tracy, (Nuclear Powerplant Supervisor) [facility] Results [address] [place] [address] (Wo rk) Social History Tobacco Use Types Packs/Day Years Used Date Never Smoker Alcohol Use Standard Drinks/Week Comments No 0 (1 standard drink = 0.6 oz pure alcoho l) Sex Assigned at Date Recorded Not on file documented as of this encounter Progress Notes Bharath Tracy - 01/12/2009 3:42 PM CDT FINAL PREOPERATIVE DIAGNOSIS: Acute appendicitis. POSTOPERATIVE DIAGNOSIS: Acute appendicitis. PROCEDURE: Laparoscopic appendectomy. SURGEON: Bharath Tracy MD ANESTHESIA: General. ESTIMATED BLOOD LOSS: 20 cc. INDICATIONS FOR OPERATION: Danielle Robb is a 53-year-old woman with a 2-day history of fairly vague right lower quadrant pain. She went to an outside urgent care where she underwent a CT scan which reportedly revealed acute appendicitis. The scan is not available for viewing. The patient was found to have mild right lower quadrant pain. It was recommended that she undergo laparoscopic appendectomygiven the findings of the CT report and her physical exam. The procedure along with its risks and complications was discussed with the patient and she agreed to proceed. DETAILS OF THE OPERATION: After informed consent, the patient was taken to the operating room whereshe underwent satisfactory induction of general anesthesia. The patient was sterilely prepped and draped and a supraumbilical skin incision was made. Dissection was carried bluntly down to the fascia, which was opened using electrocautery. The peritoneum was entered bluntly and sutures were placed in the fascial edges. The Eliza trocar was introduced and fixed in place using stay sutures and pneumoperitoneum was achieved using CO2 insufflation. The cecum was identified and this was followed down tothe appendix, which had some mild erythema to it. There was no evidence of rupture. There was no fibrinous exudate. A window was made in the mesentery and Endo-LUIZ stapler was fired across the base of the appendix. A vascular load was then fired across the mesoappendix and the appendix was placed in an Endocatch bag and removed through the supraumbilical incision. The staple line was inspected and initially there was a bit of bleeding which was easily controlled using electrocautery. The area was irrigated out until the returns were clear. Care was taken to preserve the right ovary which appeared normal. Left ovary could not easily be visualized. The gallbladder was unremarkable. The liver was unremarkable. The visualized bowel was unremarkable as the fact that the sigmoid colon was quite redundant and was well over to the right side. At this point, the trocar sites were infiltrated with 0.5% Marcaine for postoperative pain control. The trocars were removed under direct visualization and the supraumbilical fascia was closed using interrupted 0 Vicryl sutures. Skin incisions were then closed using 4-0 subcuticular Vicryl followed by Steri-Strips. The patient tolerated the procedure well and was transferred to the recovery room in satisfactory condition. Sponge and needle counts were correct at the close of the case. FINDINGS: Appendix consistent with early acute appendicitis. Electronically signed on 01/12/2009 15:42 by BHARATH TRACY MD MT: [id number] Name: DANIELLE ROBB Account: [id number] : 1955 Procedure Date: 12/03/2008 Document: [id number] cc: Eldon Conway MD documented in this encounter Plan of Treatment Not on filedocumented as of this encounter Visit Diagnoses Not on filedocumented in this encounter Care Teams Curb Builder Relationship Specialty Start Date End Date Eldon Conway MD PCP - General 07/24/01 02/15/18 [address] [place] [address] documented as of this encounter
--- OUTSIDE RECORDS SUMMARY | 2022-01-25 13:45 | XMS_ITS | Encounter Summary ---
:1955 Author Organization [facility] Address [address] [place] [address] Care Team Providers Name Role Phone Eldon Conway MD Primary Care Provider Reason for Visit Reason Comments Pain right leg pain Encounter Details Date Type Department Care Team Description 09/03/2005 Office Visit [facility] Eldon Conway, SKIN D [facility] Ananth GRAYSON (Primary Dx) [address] [place] [id number] [phone] Social History Tobacco Use Types Packs/Day Years Used Date Never Smoker Alcohol Use Standard Drinks/Week Comments No 0 (1 standard drink = 0.6 oz pure alcoho l) Sex Assigned at Date Recorded Not on file documented as of this encounter Last Filed Vital Signs Vital Sign Reading Time Taken Comments Blood Pressure 100/60 09/03/2005 1:30 PM MATH AND SCIENCE INSTRUCTOR Pulse 80 09/03/2005 1:30 PM MATH AND SCIENCE INSTRUCTOR Temperature - - Respiratory Rate - - Oxygen Saturation - - Inhaled Oxygen Concentration - - Weight 61.7 kg (136 lb) 09/03/2005 1:30 PM MATH AND SCIENCE INSTRUCTOR Height 158.1 cm (5' 2.25) 09/03/2005 1:30 PM MATH AND SCIENCE INSTRUCTOR Body Mass Index 24.68 09/03/2005 1:30 PM MATH AND SCIENCE INSTRUCTOR documented in this encounter Progress Notes Eldon Conway - 09/03/2005 10:04 PM CST S: Danielle Waldrop is a 50 year old female who complains of inversion injury to the bilateral ankle3 months ago. There is pain and swelling at the lateral aspect of that ankle. The patient was able to bear weight directly after the injury. 0: She appears well, vital signs are normal. There is swelling and tenderness over the lateral malleolus. No tenderness over the medial aspect of the ankle. The fifth metatarsal is not tender. The ankle joint is intact without excessive opening on stressing. X-Ray shows fracture to be absent. The restof the foot, ankle and leg exam is normal. A: Sprain of ankle; most swelling on rt lateral malleolus. No fever chills no deformity . Slight pain. Taking augmentin for uri. Question antigen -antibody complexes. P: Rest and elevate the injured ankle, apply ice intermittently. Use crutches without weight bearinguntil able to comfortable bear partial weight, then progress to full weight bearing as tolerated. PAM bandage applied. Dynamic ankle splint dispensed. See prn. documented in this encounter Nursing Notes 09/03/2005 1:30 PM CST >> YOKASTA FORBES 09/03/2005 1:52 pm Patient presents with: Pain - right leg pain Initial BP 100/60 Pulse 80 Ht 5' 2.25 (1.58m) Wt 136 lbs (61.7kg) LMP Hysterectomy Body mass index is 24.68 kg/(m^2).. BP completed using cuff size: regular Yokasta Forbes RIGGING ENGINEER documented in this encounter Plan of Treatment Not on filedocumented as of this encounter Visit Diagnoses Diagnosis Other specified disorder of skin - Prima ry documented in this encounter Care Teams Rib Sawyer Relationship Specialty Start Date End Date Eldon Conway MD PCP - General 07/24/01 02/15/18 [address] [place] [address] documented as of this encounter
--- OUTSIDE RECORDS SUMMARY | 2022-01-25 13:45 | XMS_ITS | Encounter Summary ---
:1955 Author Organization [place] Address [address] [place] [address] Care Team Providers Name Role Phone Eldon Conway MD Primary Care Provider Reason for Referral - Closed Specialty Diagnoses / Procedures Referred By Contact Refer red To Contact Diagnoses Routine general medical examination at a [facility] care facility Eldon Conway [place] [id number] [place] [address] [phone] Referral ID Status Reason Start Date Expiration Date Visits Requ ested Visits Authorized [id number] Closed 08/19/2005 06/08/2011 1 1 TIC PURIFICATION OPERATOR - Closed Specialty Diagnoses / Procedures Referred By Contact Refer red To Contact Diagnoses Other dyspnea and [place] [address] [place], [place] [address] Referral ID Status Reason Start Date Expiration Date Visits Requ ested Visits Authorized [id number] Closed 08/19/2005 06/08/2011 1 1 TIC PURIFICATION OPERATOR Reason for Visit Reason Comments Consult ?? sleep apnea Pain joint pain Encounter Details Date Type Department Care Team Description 08/19/2005 Office Visit [facility] Eldon Conway, RESPIR ATORY ABNORM NEC; [facility] [place] JOINT PAIN-MULT JTS; [address] [facility] [id number] [place] [address] ACUTE SEROUS OTITIS MEDIA; [place], [place] ROUTINE MEDICAL EXAM [phone] Social History Tobacco Use Types Packs/Day Years Used Date Never Smoker Alcohol Use Standard Drinks/Week Comments No 0 (1 standard drink = 0.6 oz pure alcoho l) Sex Assigned at Date Recorded Not on file documented as of this encounter Last Filed Vital Signs Vital Sign Reading Time Taken Comments Blood Pressure 130/70 08/19/2005 2:30 PM CAUSTIC PURIFICATION OPERATOR Pulse 88 08/19/2005 2:30 PM CAUSTIC PURIFICATION OPERATOR Temperature - - Respiratory Rate - - Oxygen Saturation - - Inhaled Oxygen Concentration - - Weight 61.7 kg (136 lb) 08/19/2005 2:30 PM CAUSTIC PURIFICATION OPERATOR Height 159.4 cm (5' 2.75) 08/19/2005 2:30 PM CAUSTIC PURIFICATION OPERATOR Body Mass Index 24.28 08/19/2005 2:30 PM CAUSTIC PURIFICATION OPERATOR documented in this encounter Progress Notes Eldon Conway - 08/19/2005 2:49 PM CST SUBJECTIVE: Danielle Waldrop, a 50 year old female scheduled an appointment to discuss the following issues: RESPIRATORY ABNORM NEC; SNORING WITH PERIODIC BRATHING JOINT PAIN-MULT JTS; NO FAMILY HX OF JOINT PROBLEMS BUT SOME MORNING STIFFNESS, NO SWELLING ACUTE SEROUS OTITIS MEDIA; EAR PAIN Medical, social, surgical, and family histories reviewed. ROS: C: NEGATIVE for fever, chills, change in weight I: NEGATIVE for worrisome rashes, moles or lesions E/M: NEGATIVE for ear, mouth and throat problems R: NEGATIVE for significant cough or SOB CV: NEGATIVE for chest pain, palpitations or peripheral edema GI: NEGATIVE for nausea, abdominal pain, heartburn, or change in bowel habits : NEGATIVE for frequency, dysuria, or hematuria N: NEGATIVE for weakness, dizziness or paresthesias E: NEGATIVE for temperature intolerance, skin/hair changes OBJECTIVE: BP 130/70 Pulse 88 Ht 5' 2.75 (1.59m) Wt 136 lbs (61.7kg) LMP Hysterectomy EXAM: GENERAL APPEARANCE: healthy, alert and no distress EYES: EOMI, fundi benign- PERRL HENT: ear canals and TM's normal and nose and mouth without ulcers or lesions RESP: lungs clear to auscultation - no rales, rhonchi or wheezes CV: regular rates and rhythm, normal S1 S2, no S3 or S4 and no murmur, click or rub - ABDOMEN: soft, nontender, no HSM or masses and bowel sounds normal MS: extremities normal- no gross deformities noted, no evidence of inflammation in joints, FROM in all extremities. NEURO: Normal strength and tone, sensory exam grossly normal, mentation intact and speech normal PSYCH: mentation appears normal. and affect normal/bright ASSESSMENT/PLAN: 786.09 RESPIRATORY ABNORM NEC Note: QUESTION SLEEP APNEA Plan: CONSULT SLEEP CENTER 719.49 JOINT PAIN-MULT JTS Note: NO CLINICAL FINDINGS. Plan: SED RATE, AUTO, RHEUMATOID FACTOR, ANTINUCLEAR ANTIBODIES 381.01 ACUTE SEROUS OTITIS MEDIA Note: IMPROVING Plan: CONTINUE PRESENT MEDICATIN TIC PURIFICATION OPERATOR documented in this encounter Nursing Notes 08/19/2005 2:30 PM CST >> YOKASTA FORBES 08/19/2005 2:26 pm Patient presents with: Consult - ?? sleep apnea Pain - joint pain Initial BP 130/70 Pulse 88 Ht 5' 2.75 (1.59m) Wt 136 lbs (61.7kg) LMP Hysterectomy Body mass index is 24.28 kg/(m^2).. BP completed using cuff size: regular Yokasta Forbes EDUCATION AND TRAINING COORDINATOR documented in this encounter Plan of Treatment Not on filedocumented as of this encounter Procedures Procedure Name Priority Date/Time Associated Comments Diagnosis HCL RHEUMATOID FACTOR Routine 08/19/2005 2:41 PM Joint Pain-Mu lt Jts Results for this CAUSTIC PURIFICATION OPERATOR procedure are i n the results section. CL AFF ANTINUCLEAR Routine 08/19/2005 2:41 PM Joint Pain-Mult Jts Results for this ANTIBODIES CAUSTIC PURIFICATION OPERATOR procedure are i n the results section. HCL SED RATE (ESR) Routine 08/19/2005 2:41 PM Joint Pain-Mult Jts Results for this CAUSTIC PURIFICATION OPERATOR procedure are i n the results section. documented in this encounter Results ANTINUCLEAR ANTIBODIES (08/19/2005 2:41 PM CAUSTIC PURIFICATION OPERATOR) P athologist Signature [place] Screen by 1.0 [facility] Comment: Interpretation: ??Weakly Positive Follow-up testing is not recommended un less clinically indicated. ??[place] samples are retained in the Protein Lab for 30 days. ??Please contact the laboratory to request additional tests. Specimen Anatomical Collection Method Collection Time Receive d Time (Source) Location / / Volume Laterality 08/19/2005 2:41 PM 6 2:44 CAUSTIC PURIFICATION OPERATOR PM CAUSTIC PURIFICATION OPERATOR Eldon Conway MD LABORATORY Performing Organization Address City/[facility]/ZIP Code Phon e Number [address] LABS RHEUMATOID FACTOR (08/19/2005 2:41 PM CAUSTIC PURIFICATION OPERATOR) P athologist Signature Rheumatoid <20 0 - [facility] Factor IU/mL [facility] Specimen Anatomical Collection Method Collection Time Receive d Time (Source) Location / / Volume Laterality 08/19/2005 2:41 PM 6 2:44 CAUSTIC PURIFICATION OPERATOR PM CAUSTIC PURIFICATION OPERATOR Eldon Conway MD LABORATORY Performing Organization Address City/[facility]/ZIP Code Phon e Number [address] LABS SED RATE, AUTO (08/19/2005 2:41 PM CAUSTIC PURIFICATION OPERATOR) athologist Signature Sed Rate 9 0 - 30 mm/h [facility] Specimen Anatomical Collection Method Collection Time Receive d Time (Source) Location / / Volume Laterality 08/19/2005 2:41 PM 6 2:44 CAUSTIC PURIFICATION OPERATOR PM CAUSTIC PURIFICATION OPERATOR Eldon Conway MD LABORATORY Performing Organization Address City/[facility]/ZIP Code Phon e Number [facility] [address] [place] [address] [facility] documented in this encounter Visit Diagnoses Diagnosis Other dyspnea and respiratory abnormalit y Pain in joint, multiple sites Acute serous otitis media Routine general medical examination at a health care facility documented in this encounter Care Teams Linen Room Houseperson Relationship Specialty Start Date End Date Eldon Conway MD PCP - General 07/24/01 02/15/18 [address] [place] [address] documented as of this encounter
--- OUTSIDE RECORDS SUMMARY | 2022-01-25 13:45 | XMS_ITS | Encounter Summary ---
:1955 Author Organization [place] Address [address] [place] [address] Care Team Providers Name Role Phone Eldon Conway MD Primary Care Provider Encounter Details Date Type Department Care Team Description 12/02/2008 Historic Results INTERFACED REPORT Onur Logan [place] [address] Social History Tobacco Use Types Packs/Day Years Used Date Never Smoker Alcohol Use Standard Drinks/Week Comments No 0 (1 standard drink = 0.6 oz pure alcoho l) Sex Assigned at Date Recorded Not on file documented as of this encounter Plan of Treatment Not on filedocumented as of this encounter Procedures Procedure Name Priority Date/Time Associated Comments Diagnosis ROUTINE UA WITH STAT 12/02/2008 10:00 Results for this MICROSCOPIC PM CDT procedure are i n the results section. documented in this encounter Results Routine UA with microscopic (12/02/2008 10:00 PM CDT) [facility] Method Time Signature Source Midstream [facility] Urine Color Urine Straw [facility] Appearance Urine Clear [facility] Glucose Urine Negative NEG mg/dL [facility] Bilirubin Urine Negative NEG [facility] Ketones Urine Negative NEG mg/dL [facility] Specific [place] 1.010 1.003 - MIS[facility] Urine 1.035 Blood Urine Negative NEG [facility] pH Urine 5.5 5.0 - 7.0 [facility] pH Protein Albumin Negative NEG mg/dL [facility] Urine Urobilinogen Normal 0.0 - 2.0 [facility] mg/dL mg/dL Nitrite Urine Negative NEG [facility] Leukocyte Negative NEG [facility] Esterase Urine WBC Urine <1 0 - 2 [facility] /HPF RBC Urine 0 0 - 2 [facility] /HPF Specimen Anatomical Collection Method Collection Time Receive d Time (Source) Location / / Volume Laterality 12/02/2008 10:00 12/02/2008 PM CDT 10:04 PM CDT Oseas oLgan MD LAB - URINE ORDERABLES Performing Organization Address City/State/ZIP Code Phon e Number M[facility] documented in this encounter Visit Diagnoses Not on filedocumented in this encounter Care Teams Waterfront Director Relationship Specialty Start Date End Date Eldon Conway MD PCP - General 07/24/01 02/15/18 [address] [place] [address] documented as of this encounter
--- OUTSIDE RECORDS SUMMARY | 2022-01-25 13:45 | XMS_ITS | Encounter Summary ---
:1955 Author Organization [place] Address [address] [place] [address] Care Team Providers Name Role Phone Eldon Conway MD Primary Care Provider Reason for Visit Reason Onset Date Comments Other 01/12/2010 thyroid nodule Encounter Details Date Type Department Care Team Description 01/12/2010 Telephone [facility] Deangelo Rosario, URGENT CARE PHYSICIAN ASSISTANT Other (thyroid Clinic [facility] [address] [facility] [address] [address] [place], [place] [address] (Wo rk) Social History Tobacco Use Types Packs/Day Years Used Date Never Smoker Alcohol Use Standard Drinks/Week Comments No 0 (1 standard drink = 0.6 oz pure alcoho l) Sex Assigned at Date Recorded Not on file documented as of this encounter Miscellaneous Notes Telephone Encounter - Whitney Sutton - 01/15/2010 2:30 PM CDT Appt is tania'd Telephone Encounter - Irma Rosario - 01/13/2010 1:18 AM CDT Please call her to set up an apt in the clinic. Irma Rosario MD [facility] Telephone Encounter - Chris October - 01/12/2010 12:24 PM CDT Patient calling regarding letter she received from you about thyroid nodule. After reading your letter,she would like to meet with you to discuss surgery, says she would feel better if this was removed-please advise documented in this encounter Plan of Treatment Not on filedocumented as of this encounter Visit Diagnoses Not on filedocumented in this encounter Care Teams Price Analyst Relationship Specialty Start Date End Date Eldon Conway MD PCP - General 07/24/01 02/15/18 [address] [place] [address] documented as of this encounter
--- OUTSIDE RECORDS SUMMARY | 2022-01-25 13:45 | XMS_ITS | Encounter Summary ---
:1955 Author Organization [facility] Address [address] [place] [address] Care Team Providers Name Role Phone Eldon Conway MD Primary Care Provider Reason for Visit Reason Comments Refill Request new RX for sinus Encounter Details Date Type Department Care Team Description 06/14/2005 Orders Only [facility] Eldon Conway, NASAL & SINUS DIS NEC Clinic [place] MD (Primary Dx) [address] [facility] [id number] [place] [phone] Social History Tobacco Use Types Packs/Day Years Used Date Never Smoker Alcohol Use Standard Drinks/Week Comments No 0 (1 standard drink = 0.6 oz pure alcoho l) Sex Assigned at Date Recorded Not on file documented as of this encounter Plan of Treatment Not on filedocumented as of this encounter Visit Diagnoses Diagnosis Nasal/sinus dis NEC - Primary Other diseases of nasal cavity and sinus es documented in this encounter Care Teams Clerical Office Worker Relationship Specialty Start Date End Date Eldon Conway MD PCP - General 07/24/01 02/15/[id number] [place] [phone] documented as of this encounter
--- OUTSIDE RECORDS SUMMARY | 2022-01-25 13:45 | XMS_ITS | Encounter Summary ---
:1955 Author Organization [place] Address [address] [place] [address] Care Team Providers Name Role Phone Eldon Schwartz MD Primary Care Provider Reason for Visit Reason Comments Physical patient is fasting Fisher Eel Spear Exam Encounter Details Date Type Department Care Team Description 07/08/2006 Office Visit [facility] Eldon Schwartz, [facility] Cathy Wadsworth MD (Primary Dx) [address] [place] [phone] Social History Tobacco Use Types Packs/Day Years Used Date Never Smoker Alcohol Use Standard Drinks/Week Comments No 0 (1 standard drink = 0.6 oz pure alcoho l) Sex Assigned at Date Recorded Not on file documented as of this encounter Last Filed Vital Signs Vital Sign Reading Time Taken Comments Blood Pressure 100/60 07/08/2006 8:00 AM RESEARCH GEOLOGIST Pulse 68 07/08/2006 8:00 AM RESEARCH GEOLOGIST Temperature - - Respiratory Rate - - Oxygen Saturation - - Inhaled Oxygen Concentration - - Weight 53.8 kg (118 lb 8 oz) 07/08/2006 8:00 AM RESEARCH GEOLOGIST Height 157.5 cm (5' 2) 07/08/2006 8:00 AM RESEARCH GEOLOGIST Body Mass Index 21.67 07/08/2006 8:00 AM RESEARCH GEOLOGIST documented in this encounter Progress Notes Melvi Echols - 07/08/2006 10:09 AM RESEARCH GEOLOGIST Addended by: MELVI ECHOLS on: 07/08/2006 10:09:26 AM Modules accepted: Orders ARCH GEOLOGIST Eldon Schwartz - 07/08/2006 8:41 AM CST SUBJECTIVE: CC: Danielle Robb is a 51 year old female who presents for pe HPI: no current complaints HISTORIES: There is no problem list on file for this patient. Past Medical History Diagnosis Date ??? MEDICAL HISTORY OF - POLYSONSOGRAPHY NEG IN Past Surgical History Procedure Date ??? Nonspecific procedure hysterectomy No current outpatient prescriptions on file. Allergies Allergen Reactions ??? Seasonal Allergies History Social History ??? Marital Status: Spouse Name: Artemio Number of Children: 4 ??? Years of Education: 16 Occupational History ??? [employer] Social History Main Topics ??? Tobacco Use: Never ??? Alcohol Use: No ??? Drug Use: No ??? Sexually Active: Yes -- Male partner(s) Control/ Protection: Surgical Other Topics Concern ??? Not on file Social History Narrative ??? No narrative on file Family History Problem Relation ??? Heart Paternal Grandfather heart attack early 50's ??? Heart Father heart attack at 76 ??? Alzheimers Mother ??? Osteoporosis Mother ??? Depression Mother HEALTH MAINTENANCE: No health maintenance topics applied. REVIEW OF OUTSIDE RECORDS: NO ROS: CONSTITUTIONAL:NEGATIVE for fever, chills, change in weight ENT/MOUTH: NEGATIVE for ear, mouth and throat problems RESP:NEGATIVE for significant cough or SOB CV: NEGATIVE for chest pain, palpitations or peripheral edema GI: NEGATIVE for nausea, abdominal pain, heartburn, or change in bowel habits MUSCULOSKELETAL: NEGATIVE for significant arthralgias or myalgia NEURO: NEGATIVE for weakness, dizziness or paresthesias BP 100/60 Pulse 68 Ht 5' 2 (1.58m) Wt 118 lbs 8.0 oz (53.8kg) LMP Hysterectomy EXAM: GENERAL APPEARANCE: healthy, alert [...] palpable axillary masses or adenopathy CV: regular rates and rhythm, normal S1 S2, no S3 or S4 and no murmur, click or rub ABDOMEN: soft, nontender, without hepatosplenomegaly or masses and bowel sounds normal (female): normal cervix, adnexae, and uterus without masses or discharge and rectal exam normal without masses-guaiac negative stool MS: extremities normal- no gross deformities noted NEURO: Normal strength and tone, mentation intact and speech normal ASSESSMENT/PLAN V70.0 ROUTINE MEDICAL EXAM (primary encounter diagnosis) Note: Plan: A THIN LAYER PAP SCREEN, A.M.A. COMPREHENSIVE MET.PANEL, A.M.A. LIPID PANEL, TSH W/FREE T4 REFLEX, CBC WITH PLATELETS, UA MICRO IF POSITIVE I have discussed with patient the risks, benefits, medications, treatment options and modalities. I have instructed the patient to call or schedule a follow-up appointment if any problems or failureto improve. ARCH GEOLOGIST documented in this encounter Nursing Notes 07/08/2006 8:00 AM CST >> YOKASTA FORBES 07/08/2006 8:21 am Patient presents with: Physical - patient is fasting Fisher Eel Spear Exam Initial BP 100/60 Pulse 68 Ht 5' 2 (1.58m) Wt 118 lbs 8.0 oz (53.8kg) LMP Hysterectomy Bodymass index is 21.67 kg/(m^2).. BP completed using cuff size: regular Yokasta Forbes TECHNICAL SYSTEMS ARCHITECT documented in this encounter Plan of Treatment Not on filedocumented as of this encounter Procedures Procedure Name Priority Date/Time Associated Comments Diagnosis CL AFF N.GONORRHOEAE, Routine 07/08/2006 10:06 Routine Medical Results for this DNA AMP PROBE AM RESEARCH GEOLOGIST Exam procedure are in the results section. CL AFF CHLMYD TRACH, Routine 07/08/2006 10:06 Routine Medical Results for this DNA, AMP PROBE AM RESEARCH GEOLOGIST Exam procedure are in the results section. HCL WET PREP Routine 07/08/2006 10:06 Routine Medical Results for this AM RESEARCH GEOLOGIST Exam procedure are i n the results section. HCL UA MICRO IF Routine 07/08/2006 8:42 AM Routine Medical Res ults for this POSITIVE RESEARCH GEOLOGIST Exam procedure are i n the results section. CL AFF CBC WITH Routine 07/08/2006 8:42 AM Routine Medical Res ults for this PLATELETS RESEARCH GEOLOGIST Exam procedure are i n the results section. HCL COMPREHENSIVE Routine 07/08/2006 8:42 AM Routine Medical R esults for this METABOLIC PANEL RESEARCH GEOLOGIST Exam procedure ar e in the results section. HCL TSH W/FREE T4 Routine 07/08/2006 8:42 AM Routine Medical R esults for this REFLEX RESEARCH GEOLOGIST Exam procedure are i n the results section. CL AFF A.M.A. LIPID Routine 07/08/2006 8:42 AM Routine Medical Results for this PANEL RESEARCH GEOLOGIST Exam procedure are i n the results section. HCL PAP THIN LAYER Routine 07/08/2006 12:00 Routine Medical Re sults for this SCREEN AM RESEARCH GEOLOGIST Exam procedure are i n the results section. documented in this encounter Results A WET PREP (07/08/2006 10:06 AM RESEARCH GEOLOGIST) [facility] [employer] Method Time Signature Specimen [facility] LAB Wet Prep No yeast seen [place] No Trichomonas seen [facility] No clue cells seen CLINIC LAB Report status FINAL [id number] [facility] LAB Specimen Anatomical Collection Method Collection Time Receive d Time (Source) Location / / Volume Laterality 07/08/2006 10:06 07/08/2006 AM RESEARCH GEOLOGIST 10:11 AM RESEARCH GEOLOGIST Eldon Schwartz MD LABORATORY Performing Organization Address City/State/ZIP Code Phon e Number [facility] [address] [place], [place] [phone] [facility] LAB N.GONORRHOEAE, DNA, (GC) (07/08/2006 10:06 AM RESEARCH GEOLOGIST) Component Value Ref Test Analysis Performed At [employer] Range Method Time Signature Specimen [facility] N Gonorrhea Negative for N. gonorrhoeae rRNA by in home sales representative mediated amplification. [facility] PCR A negative result by transc ription mediated amplification does not preclude the [facility] presence of N. gonorrhoeae infection because re sults are dependent on proper CAMPUS LABS and adequate collection, absence of inhibitors, and suffici ent rRNA to be detected. Specimen Anatomical Collection Method Collection Time Receive d Time (Source) Location / / Volume Laterality 07/08/2006 10:06 07/08/2006 AM RESEARCH GEOLOGIST 10:10 AM RESEARCH GEOLOGIST Eldon Schwartz MD LABORATORY Performing Organization Address City/State/ZIP Code Phon e Number [facility] [address] [place], [place] [phone] [place] [address] LABS CHLMYD TRACH, DNA, AMP PROBE (07/08/2006 10:06 AM RESEARCH GEOLOGIST) Component Value Ref Test Analysis Performed At [facility] Range Method Time Signature Specimen Vagina [facility] LABS Chlamydia Negative for C. trachomatis rRNA by in home sales representative mediated amplification. [facility] Trachomatis A negative result by transc ription mediated amplification does not preclude the [place] PCR presence of C. trachomatis infection because results are dependent on proper CAMPUS LABS and adequate collection, absence of inhibitors, and suffici ent rRNA to be detected. Specimen Anatomical Collection Method Collection Time Receive d Time (Source) Location / / Volume Laterality 07/08/2006 10:06 07/08/2006 AM RESEARCH GEOLOGIST 10:10 AM RESEARCH GEOLOGIST Eldon Schwartz MD LABORATORY Performing Organization Address City/[facility]/ZIP Code Phon e Number [facility] [address] [place], [place] [phone] [place] [address] LABS (ABNORMAL) UA MICRO IF POSITIVE (07/08/2006 8:42 AM RESEARCH GEOLOGIST) [facility] Method Time Signature Color Urine Yellow [facility] LAB Appearance Urine Clear [facility] LAB Glucose Urine Negative NEG mg/dL [facility] LAB Bilirubin Urine Negative NEG [facility] LAB Ketones Urine Trace (A) NEG mg/dL [facility] LAB Specific [place] 1.025 1.003 - [place] Urine 1.035 [facility] LAB Blood Urine Negative NEG [facility] LAB pH Urine 5.5 5.0 - 7.0 [place] pH [facility] LAB Protein Albumin Negative NEG mg/dL [place] Urine [facility] LAB Urobilinogen 0.2 0.2 - 1.0 [place] Urine EU/dL [facility] LAB Nitrite Urine Negative NEG [facility] LAB Leukocyte Negative NEG [place] Esterase Urine [facility] LAB Source Midstream [place] Urine [facility] LAB Specimen Anatomical Collection Method Collection Time Receive d Time (Source) Location / / Volume Laterality 07/08/2006 8:42 AM 7 8:47 RESEARCH GEOLOGIST AM RESEARCH GEOLOGIST Eldon Schwartz MD LABORATORY Performing Organization Address City/[facility]/ZIP Code Phon e Number [facility] [address] [place] [address] [facility] LAB CBC WITH PLATELETS (07/08/2006 8:42 AM RESEARCH GEOLOGIST) P athologist Signature WBC 4.4 4.0 - 11.0 [place] 10e9/L [facility] LAB RBC Count 4.60 3.8 - 5.2 [place] 10e12/L [facility] LAB Hemoglobin 14.4 11.7 - [place] 15.7 g/dL [facility] LAB Hematocrit 42.6 35.0 - [place] 47.0 % [facility] LAB MCV 93 78 - 100 [place] fl [facility] LAB MCH 31.3 26.5 - [place] 33.0 pg [facility] LAB MCHC 33.8 32.0 - [place] 36.0 g/dL [facility] RDW 12.2 10.0 - [place] 15.0 % [facility] Platelet Count 225 150 - 450 [facility] Specimen Anatomical Collection Method Collection Time Receive d Time (Source) Location / / Volume Laterality 07/08/2006 8:42 AM 7 8:47 RESEARCH GEOLOGIST AM RESEARCH GEOLOGIST Eldon Schwartz MD LABORATORY Performing Organization Address City/[facility]/ZIP Code Phon e Number [facility] [address] [place] [address] [facility] TSH W/FREE T4 REFLEX (07/08/2006 8:42 AM RESEARCH GEOLOGIST) P athologist Signature TSH 1.39 0.4 - 5.0 [facility] mU/L [facility] LAB Specimen Anatomical Collection Method Collection Time Receive d Time (Source) Location / / Volume Laterality 07/08/2006 8:42 AM 7 8:47 RESEARCH GEOLOGIST AM RESEARCH GEOLOGIST Eldon Schwartz MD LABORATORY Performing Organization Address City/[facility]/ZIP Code Phon e Number [facility] [address] [place] [address] [facility] LAB (ABNORMAL) A.M.A. LIPID PANEL (07/08/2006 8:42 AM RESEARCH GEOLOGIST) P athologist Signature Cholesterol 274 (H) 0 - 200 [facility] mg/dL CLINIC LAB Comment: LDL Cholesterol is the primary guide to therapy: LDL-cholesterol goal in high risk patients is <100 mg/dL and in very high risk patients is <70 mg/dL. The NCEP recommends further evaluation of: patients with cholesterol <200 mg/dL if additional risk factors are present, cholesterol >240 mg/dL, triglycerides >150 mg/dL, or HDL <40 mg/dL. Triglycerides 120 0 - 150 mg/dL [facility] LAB HDL Cholesterol 80 50 - 110 mg/dL [facility] LAB LDL Cholesterol Calculated 171 (H) 0 - 129 mg/dL [facility] LAB Comment: LDL Cholesterol is the primary guide to therapy: LDL-cholesterol goal in high risk patients is <100 mg/dL and in very high risk patients is <70 mg/dL. VLDL-Cholesterol 24 0 - 30 mg/dL [facility] Cholesterol/HDL Ratio 3.5 0.0 - 5.0 [facility] LAB Specimen Anatomical Collection Method Collection Time Receive d Time (Source) Location / / Volume Laterality 07/08/2006 8:42 AM 7 8:47 RESEARCH GEOLOGIST AM RESEARCH GEOLOGIST Eldon Schwartz MD LABORATORY Performing Organization Address City/State/ZIP Code Phon e Number [facility] [address] [place] [address] [facility] LAB (ABNORMAL) A.M.A. COMPREHENSIVE MET.PANEL (07/08/2006 8:42 AM RESEARCH GEOLOGIST) P athologist Signature Sodium 145 (H) 133 - 144 [place] mmol/L [facility] LAB Potassium 3.8 3.4 - 5.3 [place] mmol/L [facility] Chloride 104 94 - 109 [place] mmol/L [facility] Carbon Dioxide 27 20 - 32 [place] mmol/L [facility] Anion Gap 14 6 - 17 [place] mmol/L [facility] Glucose 101 60 - 110 [place] mg/dL [facility] Urea Nitrogen 16 7 - 30 [place] mg/dL [facility] Creatinine 0.90 0.60 [facility] 1.30 mg/dL [facility] LAB GFR Estimate 70 >60 [place] mL/min/1.7 [facility] m2 LAB GFR Estimate If 85 >60 [place] Black mL/min/1.7 [facility] m2 LAB Comment: Stages of Chronic Kidney Disease Stage 1: ??GFR 90 or greater and other e vidence of kidney damage* Stage 2: ??GFR 60-89 and other evidence of kidney damage * Stage 3: ??GFR 30-59 Stage 4: ??GFR 15-29 Stage 5: ??GFR less than 15 or dialysis *Chronic kidney disease is defined as ki dney damage or GFR less than 60 mL/min/1.73 m2 for three months or grea ter. ??Kidney damage is defined as pathologic abnormalities or markers or damage, including abnormalities in blood or urine tests or imaging studies. Calcium 9.9 8.5 - 10.4 mg/dL [facility] N CLINIC LAB Bilirubin Total 0.5 0.2 - 1.3 mg/dL [facility] Albumin 4.7 (H) 3.3 - 4.6 g/dL [facility] Protein Total 8.1 6.0 - 8.2 g/dL [place] [facility] LAB Alkaline Phosphatase 69 40 - 150 U/L [facility] LAB ALT 28 0 - 50 U/L [place] [facility] IC LAB AST 27 0 - 45 U/L [facility] CLIN IC LAB Specimen Anatomical Collection Method Collection Time Receive d Time (Source) Location / / Volume Laterality 07/08/2006 8:42 AM 7 8:47 RESEARCH GEOLOGIST AM RESEARCH GEOLOGIST Eldon Schwartz MD LABORATORY Performing Organization Address City/State/ZIP Code Phon e Number [facility] [address] [place] [address] [facility] A THIN LAYER PAP SCREEN (07/08/2006 12:00 AM RESEARCH GEOLOGIST) Component Value Ref Test Analysis Performed At [facility] Range Method Time Signature PAP NIL COPATH Copath Report COPATH Patient Name: DANIELLE ROBB MR#: [id number] Specimen #: [id number] Collected: 07/08/2006 Received: 07/08/2006 Reported: 07/10/2006 13:45 Ordering Phy(s): ELDON SCHWARTZ SPECIMEN/STAIN PROCESS: Pap thin layer prep screening ([facility]) ? Pap-Cyto x 1, Reflex HPV x 1 SOURCE: Cervical, endocervical ---- Pap thin layer prep screening ([facility]) SPECIMEN ADEQUACY: Satisfactory for evaluation. -Transformation zone component absent. CYTOLOGIC INTERPRETATION: Negative for Intraepithelial Lesion or Malignancy Electronically signed out by: CHEKO Barker (ASCP) [facility] CLINICAL HISTORY: Hysterectomy, Previous normal pap Date of Last Pap: 05-16-05, TESTING LAB LOCATION: [address] ??[id number] COLLECTION SITE: Client: ??[facility] [address] Location: [facility] (R) Specimen (Source) Anatomical Collection Method Collection Time Re ceived Time Location / / Volume Laterality 07/08/2006 07/08/2006 2:48 PM RESEARCH GEOLOGIST Eldon Schwartz MD LABORATORY Performing Organization Address City/State/ZIP Code Phon e Number [place] documented in this encounter Visit Diagnoses Diagnosis Routine general medical examination at a health care facility - Primary documented in this encounter Care Teams Truck Crane Operator Helper Relationship Specialty Start Date End Date Eldon Schwartz MD PCP - General 07/24/01 02/15/18 [address] [place] [address] documented as of this encounter
--- OUTSIDE RECORDS SUMMARY | 2022-01-25 13:45 | XMS_ITS | Encounter Summary ---
:1955 Author Organization [place] Address [address] [place] [address] Care Team Providers Name Role Phone Eldon Conway MD Primary Care Provider Encounter Details Date Type Department Care Team Description 12/03/2008 Historic Notes INTERFACED REPORT Interface, Transcript on, Social History Tobacco Use Types Packs/Day Years Used Date Never Smoker Alcohol Use Standard Drinks/Week Comments No 0 (1 standard drink = 0.6 oz pure alcoho l) Sex Assigned at Date Recorded Not on file documented as of this encounter Progress Notes Interface, Motorcycle Engine Assembler - 08/26/2010 12:19 AM CDT General Information - How to be Addressed Danielle - Patient Belongings none; family took home - personal service representative #1: Artemio - Phone 1: [phone] - Patient's spoken language; Mongolian or Bilingual communication style Allergies ?? No Known Drug;None Current Health and Illness - Reason for Admission abdominal x2 days with nausea as Stated by Patient Living Environment - Lives With children; other relative - Living Arrangements house Substance Use - Tobacco Use None. - Exposure to Second Not exposed to second hand smoke Hand Smoke - Caffeine Use No - Alcohol Use none - History of street No drug/inhalant/ medication abuse Review of Systems (Relevant to Reason for Observation) - Cardiac high cholesterol Conditions/Symptoms - Usual Activity good Tolerance - Current Activity good Tolerance - Important Activities exercise - Ambulation 0 - Independent with ambulation [...] - Skin none reported Conditions/Symptoms - Endocrine none Conditions/Symptoms - Hematological none Conditions/Symptoms - Immune /Infections none - Immunization Status current - Influenza vaccine N/A; Not currently flu season (09/07 - 03/08) - Mental Health none Conditions/Symptoms Skin Inspection - Skin Inspection: full Body Image with Right Left: - Image Description: 3 lap sites Learning Assessment - Factors that Impact none Ability to Learn Signatures SAURAV MOREIRA (RN)[Signed 02:06] Authored: General Information, Allergies, Current Health and Illness, Living Environment, Substance Use, Review of Systems (Relevant to Reason for Observation), Skin Inspection, Learning Assessment Interface, Motorcycle Engine Assembler - 08/26/2010 12:18 AM CDT Patient Status - Physical status Stable (s/s of potential complications absent or manageable) - Psychosocial status Stable Discharge Planning - [facility]charge From: [facility] - Patient Care Unit: Pediatrics - PCU - Method of discharge: Wheel Chair - Transportation: Private Discharge Information - Discharge information Discharge instructions reviewed with pt/family/so; Prescriptions given - Accompanied by Spouse - Mode of Travel Wheelchair Medications and Prescriptions - Medications and Prescriptions given to patient Prescriptions Support Services - Is home care No recommended? - Supplies sent/ordered No - Equipment No sent/ordered - Other Services No arranged Special Care Needs and Instructions - Diet Instructions: Limit gas forming foods such as beans, cabbage, and onions. Regular diet. Drink alot of fluids. - Activity No strenuous activity, lifting, or exercise Instructions: until cleared by Dr Tracy. May shower 48 hours post op. Pat your incision dry after. Leave steri strips on. They should fall off within a week and if they haven't you may remove them after 7 days. - Report temp if 101 degrees F greater than: - Symptoms/Problems to Call with questions or concerns, with pain in look for at home- your incision not relieved by rest, with fever, call the physician or redness or swelling in your incicion. about: - Who patient should Dr Tracy call: - Phone number of [facility] [phone] patient should call: - Other Special Care At home instruction sheet for abdominal surgery Needs: given to patient for home. Don't drive if you are taking narcotics. Follow Up Care - Physician/clinician Follow up with Dr Tracy in 2-3 weeks. name: - Phone Number: Call [phone] to make an appointment. JOEL Urban (RN)[Signed 11:45] Authored: Patient Status, Discharge Planning, Discharge Information, Medications and Prescriptions, Support Services, Special Care Needs and Instructions, Follow Up Care documented in this encounter Plan of Treatment Not on filedocumented as of this encounter Visit Diagnoses Not on filedocumented in this encounter Care Teams Manager Statistical Programming Relationship Specialty Start Date End Date Eldon Conway MD PCP - General 07/24/01 02/15/18 [address] [place] [address] documented as of this encounter
--- OUTSIDE RECORDS SUMMARY | 2022-01-25 13:45 | XMS_ITS | Encounter Summary ---
:1955 Author Organization [facility] Address [address] [place] [address]. [place] [address] Care Team Providers Name Role Phone Eldon Schwartz MD Primary Care Provider Reason for Visit Reason Comments Physical physical and pap, patient is fasting Encounter Details Date Type Department Care Team Description 04/14/2008 Office Visit [facility] Eldon Schwartz Routin e Physical Examination (Primary Dx); Clinic [place] MD Hip Pain; [address] [place] [address] Moles; [place], [place]; [id number] Elevated Cholesterol [phone] Social History Tobacco Use Types Packs/Day Years Used Date Never Smoker Alcohol Use Standard Drinks/Week Comments No 0 (1 standard drink = 0.6 oz pure alcoho l) Sex Assigned at Date Recorded Not on file documented as of this encounter Last Filed Vital Signs Vital Sign Reading Time Taken Comments Blood Pressure 108/70 04/14/2008 9:30 AM OFFICE SERVICES COORDINATOR Pulse 72 04/14/2008 9:30 AM OFFICE SERVICES COORDINATOR Temperature - - Respiratory Rate - - Oxygen Saturation - - Inhaled Oxygen Concentration - - Weight 53.1 kg (117 lb) 04/14/2008 9:30 AM OFFICE SERVICES COORDINATOR Height 158.8 cm (5' 2.5) 04/14/2008 9:30 AM OFFICE SERVICES COORDINATOR Body Mass Index 21.06 04/14/2008 9:30 AM OFFICE SERVICES COORDINATOR documented in this encounter Progress Notes Eldon Schwartz - 04/14/2008 10:46 AM CST SUBJECTIVE: Danielle Robb, a 52 year old female scheduled an appointment to discuss the following issues: ROUTINE PHYSICAL EXAMINATION HIP PAIN MOLES VAGINITIS Medical, social, surgical, and family histories reviewed. ROS: C: NEGATIVE for fever, chills, change in weight INTEGUMENTARY/SKIN: as above E/M: NEGATIVE for ear, mouth and throat problems R: NEGATIVE for significant cough or SOB CV: NEGATIVE for chest pain, palpitations or peripheral edema GI: NEGATIVE for nausea, abdominal pain, heartburn, or change in bowel habits : NEGATIVE for frequency, dysuria, or hematuria MUSCULOSKELETAL:as above OBJECTIVE: BP 108/70 Pulse 72 Ht 5' 2.5 (1.588 m) Wt 117 lb (53.071 kg) LMP Hysterectomy EXAM: GENERAL APPEARANCE: healthy, alert and no distress EYES: EOMI, PERRL HENT: ear canals and TM's normal and nose and mouth without ulcers or lesions RESP: lungs clear to auscultation - no rales, rhonchi or wheezes CV: regular rates and rhythm, normal S1 S2, no S3 or S4 and no murmur, click or rub - ABDOMEN: soft, nontender, no HSM or masses and bowel sounds normal GU_female: Vagina and vulva are normal; no discharge is noted. Cervix normal without lesions. Uterusanteverted and mobile, normal in size and shape without tenderness. Adnexa normal in size without masses or tenderness. Pap Smear - is completed today. Exam chaperoned by Nurse. MS: extremities normal- no gross deformities noted, no evidence of inflammation in joints, FROM in all extremities. SKIN: mole on the her back NEURO: Normal strength and tone, sensory exam grossly normal, mentation intact and speech normal ASSESSMENT/PLAN: V70.0F Routine Physical Examination (primary encounter diagnosis) Comment: as above Plan: A THIN LAYER PAP SCREEN, A.M.A. COMPREHENSIVE MET.PANEL, A.M.A. LIPID PANEL, CBC WITH PLATELETS, TSH W/FREE T4 REFLEX, UA MICRO IF POSITIVE 719.45F Hip Pain Comment: Plan: MEDROL (RYAN) 4 MG OR TABS 216.9CK Moles Comment: mid back that did deem to itch. Plan: taken to the rocedure room. There the lesion was cleaned and then it was anesthethized. 616.10Y Vaginitis Comment: exam does look ok Plan: METRONIDAZOLE 0.75 % VA GEL CE SERVICES COORDINATOR documented in this encounter Plan of Treatment Not on filedocumented as of this encounter Procedures Procedure Name Priority Date/Time Associated Comments Diagnosis CL AFF CBC WITH Routine 04/14/2008 10:56 Routine Physical Resu lts for this PLATELETS AM OFFICE SERVICES COORDINATOR Examination procedure are i n the results section. HCL COMPREHENSIVE Routine 04/14/2008 10:56 Routine Physical Re sults for this METABOLIC PANEL AM OFFICE SERVICES COORDINATOR Examination procedure ar e in the results section. HCL TSH W/FREE T4 Routine 04/14/2008 10:56 Routine Physical Re sults for this REFLEX AM OFFICE SERVICES COORDINATOR Examination procedure are i n the results section. CL AFF A.M.A. LIPID Routine 04/14/2008 10:56 Routine Physical Results for this PANEL AM OFFICE SERVICES COORDINATOR Examination procedure are i n the results section. HCL UA MICRO IF Routine 04/14/2008 10:27 Routine Physical Resu lts for this POSITIVE AM OFFICE SERVICES COORDINATOR Examination procedure are i n the results section. CL AFF SURGICAL Routine 04/14/2008 12:00 [place] Results for this PATHOLOGY AM OFFICE SERVICES COORDINATOR procedure are i n the results section. HCL PAP THIN LAYER Routine 04/14/2008 12:00 Routine Physical R esults for this SCREEN AM OFFICE SERVICES COORDINATOR Examination procedure are i n the results section. documented in this encounter Results TSH W/FREE T4 REFLEX (04/14/2008 10:56 AM OFFICE SERVICES COORDINATOR) P athologist Signature TSH 0.77 0.4 - 5.0 [facility] mU/L [facility] Specimen Anatomical Collection Method Collection Time Receive d Time (Source) Location / / Volume Laterality 04/14/2008 10:56 04/14/2008 AM OFFICE SERVICES COORDINATOR 11:02 AM OFFICE SERVICES COORDINATOR Eldon Schwartz MD LABORATORY Performing Organization Address City/State/ZIP Code Phon e Number [facility] [address] [place] [address] [facility] CBC WITH PLATELETS (04/14/2008 10:56 AM OFFICE SERVICES COORDINATOR) P athologist Signature WBC 5.8 4.0 - 11.0 [facility] 10e9/L [facility] RBC Count 4.37 3.8 - 5.2 [facility] 10e12/L [facility] Hemoglobin 13.7 11.7 - [facility] 15.7 g/dL [facility] Hematocrit 41.4 35.0 - [facility] 47.0 % [facility] MCV 95 78 - 100 [facility] fl [facility] MCH 31.4 26.5 - [place] 33.0 pg [facility] MCHC 33.1 31.5 - [facility] 36.5 g/dL [facility] RDW 12.3 10.0 - [facility] 15.0 % [facility] Platelet Count 262 150 - 450 [facility] 10e9/L [facility] Specimen Anatomical Collection Method Collection Time Receive d Time (Source) Location / / Volume Laterality 04/14/2008 10:56 04/14/2008 AM OFFICE SERVICES COORDINATOR 11:02 AM OFFICE SERVICES COORDINATOR Eldon Schwartz MD LABORATORY Performing Organization Address City/State/ZIP Code Phon e Number [facility] [address] [place] [address] [facility] (ABNORMAL) A.M.A. LIPID PANEL (04/14/2008 10:56 AM OFFICE SERVICES COORDINATOR) athologist Signature Cholesterol 240 (H) 0 - 200 [facility] mg/dL CLINIC LAB Comment: LDL Cholesterol is the primary guide to therapy: LDL-cholesterol goal in high risk patients is <100 mg/dL and in very high risk patients is <70 mg/dL. The NCEP recommends further evaluation of: patients with cholesterol <200 mg/dL if additional risk factors are present, cholesterol >240 mg/dL, triglycerides >150 mg/dL, or HDL <40 mg/dL. Triglycerides 82 0 - 150 mg/dL [facility] HDL Cholesterol 78 50 - 110 mg/dL [facility] LDL Cholesterol Calculated 145 (H) 0 - 129 mg/dL [facility] Comment: LDL Cholesterol is the primary guide to therapy: LDL-cholesterol goal in high risk patients is <100 mg/dL and in very high risk patients is <70 mg/dL. VLDL-Cholesterol 16 0 - 30 mg/dL [facility] Cholesterol/HDL Ratio 3.1 0.0 - 5.0 [facility] Specimen Anatomical Collection Method Collection Time Receive d Time (Source) Location / / Volume Laterality 04/14/2008 10:56 04/14/2008 AM OFFICE SERVICES COORDINATOR 11:02 AM OFFICE SERVICES COORDINATOR Eldon Schwartz MD LABORATORY Performing Organization Address City/State/ZIP Code Phon e Number [facility] [address] [place] [address] [facility] A.M.A. COMPREHENSIVE MET.PANEL (04/14/2008 10:56 AM OFFICE SERVICES COORDINATOR) P athologist Signature Sodium 143 133 - 144 [facility] mmol/L [facility] Potassium 4.6 3.4 - 5.3 [facility] mmol/L [facility] Chloride 103 94 - 109 [facility] mmol/L [facility] Carbon Dioxide 28 20 - 32 [facility] mmol/L [facility] Anion Gap 12 6 - 17 [facility] mmol/L [facility] Glucose 96 60 - 99 [facility] mg/dL [facility] LAB Urea Nitrogen 14 7 - 30 [facility] mg/dL [facility] LAB Creatinine 0.71 0.52 - [facility] 1.04 mg/dL [facility] LAB Comment: New IDMS-traceable calibration beginning 10/08/07 GFR Estimate 86 >60 mL/min/1.7m2 [facility] GFR Estimate If Black >90 >60 mL/min/1.7m2 F [facility] Calcium 9.7 8.5 - 10.4 mg/dL [facility] Bilirubin Total 0.6 0.2 - 1.3 mg/dL [facility] Albumin 4.4 3.9 - 5.1 g/dL [facility] Comment: Reference range changed on 02/08. Protein Total 7.3 6.8 - 8.8 g/dL [facility] Comment: As of 07, reference range reflects plasma specimen type. Alkaline Phosphatase 62 40 - 150 U/L [facility] ALT 27 0 - 50 U/L [facility] LAB AST 25 0 - 45 U/L [facility] CLIN IC LAB Specimen Anatomical Collection Method Collection Time Receive d Time (Source) Location / / Volume Laterality 04/14/2008 10:56 04/14/2008 AM OFFICE SERVICES COORDINATOR 11:02 AM OFFICE SERVICES COORDINATOR Eldon Schwartz MD LABORATORY Performing Organization Address City/[facility]/ZIP Code Phon e Number [facility] [address] [place] [address] [facility] UA MICRO IF POSITIVE (04/14/2008 10:27 AM OFFICE SERVICES COORDINATOR) [facility] gist Method Time Signature Color Urine Yellow [facility] Appearance Urine Clear [facility] Glucose Urine Negative NEG mg/dL [facility] Bilirubin Urine Negative NEG [facility] Ketones Urine Negative NEG mg/dL [facility] Specific [place] 1.020 1.003 - [place] Urine 1.035 [facility] Blood Urine Negative NEG [facility] pH Urine 5.5 5.0 - 7.0 [place] pH [facility] Protein Albumin Negative NEG mg/dL [place] Urine [facility] Urobilinogen 0.2 0.2 - 1.0 [place] Urine EU/dL [facility] Nitrite Urine Negative NEG [facility] Leukocyte Negative NEG [place] Esterase Urine [facility] Source Midstream [place] Urine [facility] Specimen Anatomical Collection Method Collection Time Receive d Time (Source) Location / / Volume Laterality 04/14/2008 10:27 04/14/2008 AM OFFICE SERVICES COORDINATOR 10:29 AM OFFICE SERVICES COORDINATOR Eldon Schwartz MD LABORATORY Performing Organization Address [facility]/ZIP Code Phon e Number [facility] [id number] [place] [address] [facility] SURGICAL PATHOLOGY (04/14/2008 12:00 AM OFFICE SERVICES COORDINATOR) Component Value Ref Test Analysis Performed At [facility] gist Range Method Time Signature Copath Report Patient Name: DANIELLE ROBB MR#: [id number] Specimen #: [id number] Collected: 04/14/2008 Received: 04/14/2008 Reported: 04/15/2008 13:59 Ordering Phy(s): ELDON SCHWARTZ SPECIMEN(S): Mole, mid back FINAL DIAGNOSIS: Skin, mid back, biopsy - Seborrheic keratosis, benign. Electronically signed out by: Carlo Abraham M.D. CLINICAL HISTORY: Itching. GROSS: The specimen, labeled mole mid-back, consists of a 0.5 cm in diameter mackey to light brown soft skin papule. ??The specimen is bisec prisca and submitted in its entirety. ??MGP/eric MICROSCOPIC: Microscopic examination was performed. MGP/kd DT04-15-08 TESTING LAB LOCATION: [address] ??[address] COLLECTION SITE: Client: [facility] Location: [facility] (R) Specimen (Source) Anatomical Collection Method Collection Time Re ceived Time Location / / Volume Laterality 04/14/2008 04/14/2008 3:21 PM OFFICE SERVICES COORDINATOR Eldon Schwartz MD LABORATORY Performing Organization Address City/State/ZIP Code Phon e Number [facility] A THIN LAYER PAP SCREEN (04/14/2008 12:00 AM OFFICE SERVICES COORDINATOR) Component Value Ref Test Analysis Performed At [facility] Method Time Signature PAP NIL [facility] Copath Report [facility] Patient Name: DANIELLE ROBB MR#: [id number] Specimen #: [id number] Collected: 04/14/2008 Received: 04/15/2008 Reported: 04/18/2008 13:08 Ordering Phy(s): ELDON SCHWARTZ SPECIMEN/STAIN PROCESS: Pap thin layer prep screening ([facility]) ? Pap-Cyto x 2, Reflex HPV x 1 SOURCE: Vaginal ---- Pap thin layer prep screening ([facility]) SPECIMEN ADEQUACY: Satisfactory for evaluation. -Transformation zone component absent. CYTOLOGIC INTERPRETATION: Negative for Intraepithelial Lesion or Malignancy Electronically signed out by: CHEKO Barker (ASCP) Processed and screened at [facility] CLINICAL HISTORY: Hysterectomy: partial, Previous normal pap Date of Last Pap: 07/08/06, TESTING LAB LOCATION: [address] [place], [place] ??[phone] COLLECTION SITE: Client: ??[facility] Location: [facility]FP (R) Specimen (Source) Anatomical Collection Method Collection Time Re ceived Time Location / / Volume Laterality 04/14/2008 04/15/2008 9:28 AM OFFICE SERVICES COORDINATOR Eldon Schwartz MD LABORATORY Performing Organization Address City/State/ZIP Code Phon e Number [facility] documented in this encounter Visit Diagnoses Diagnosis Routine physical examination - Primary Routine general medical examination at a health care facility Hip pain Pain in joint, pelvic region and thigh Moles Benign neoplasm of skin, site unspecifie d Vaginitis Vaginitis and vulvovaginitis, unspecifie d Elevated cholesterol Pure hypercholesterolemia documented in this encounter Care Teams Lithography Contact Worker Relationship Specialty Start Date End Date Eldon Schwartz MD PCP - General 07/24/01 02/15/18 [address] [place] [address] documented as of this encounter
--- OUTSIDE RECORDS SUMMARY | 2022-01-25 13:45 | XMS_ITS | Encounter Summary ---
:1955 Author Organization [facility] Address [address] [place] [address] Care Team Providers Name Role Phone Eldon Conway MD Primary Care Provider Encounter Details Date Type Department Care Team Description 01/04/2010 Hospital Pathology [facility] Patrice Bustillo NP [facility] Results CLINIC [address] [place] [address], [address], [place] [address] (Wo rk) Social History Tobacco Use Types Packs/Day Years Used Date Never Smoker Alcohol Use Standard Drinks/Week Comments No 0 (1 standard drink = 0.6 oz pure alcoho l) Sex Assigned at Date Recorded Not on file documented as of this encounter Plan of Treatment Not on filedocumented as of this encounter Procedures Procedure Name Priority Date/Time Associated Diagnosis Comme nts CYTOLOGY, FINE Routine 01/04/2010 2:22 PM Results for this NEEDLE (COPATH) CDT procedure ar e in the results section. documented in this encounter Results Hospital - CYTOLOGY, FINE NEEDLE (COPATH) (01/04/2010 2:22 PM CDT) Component Value Ref Test Analysis Performed At [facility] Range Method Time Signature Copath Patient Name: DANIELLE ROBB COP[facility] Report MR#: [id number] Specimen #: [id number] Collected: 01/04/2010 Received: 01/04/2010 Reported: 01/05/2010 16:03 Ordering Phy(s): HERMANN BUSTILLO Additional Phy(s): [facility] SENIOR SPECIMEN/STAIN PROCESS: FNA-thyroid, right thyroid nodule ? Pap-Cyto x 10 ---- CYTOLOGIC INTERPRETATION: FNA-thyroid, right thyroid nodule: ?? Atypia of Undetermine d Significance. ??See microscopic description. Implied Risk of Malignancy and Recommended Clinical Manageme nt: Atypia of Undetermined Significance has a 5-15% risk of dipesh gnancy, suggest repeat FNA. Specimen Adequacy: Satisfactory for evaluation. Electronically signed out by: Jacob Tang M.D. Processed and screened at [facility] CLINICAL HISTORY: Right dominant thyroid nodule , GROSS: FNA-thyroid, right thyroid nodule: ??10 fixed smears receive d MICROSCOPIC: Several of the smears show abundant watery colloid in the ba ckground. Cellularity is variable from low to moderate. ??Some of the follicular cells appear uniform in macro- and focal microfollicular arr angements. There are scattered macrophages. ??Several cell groups conta in nuclear grooves. ??Diagnostic nuclear pseudoinclusions are not ident ified. ??The presence of colloid favors a benign process; however, the pr esence of nuclear grooves is an atypical feature. MARITZA/emil 01-05-10 TESTING LAB LOCATION: [address] ??[address] COLLECTION SITE: Client: ??[facility] Location: ??[place] (R) Specimen Anatomical Collection Method Collection Time Receive d Time (Source) Location / / Volume Laterality 01/04/2010 2:22 PM 0 2:22 CDT PM CDT Hermann Bustillo NP LABORATORY Performing Organization Address City/State/ZIP Code Phon e Number [facility] documented in this encounter Visit Diagnoses Not on filedocumented in this encounter Care Teams Head Stock Transfer Clerk Relationship Specialty Start Date End Date Eldon Conway MD PCP - General 07/24/01 02/15/18 [address] [place] [address] documented as of this encounter
--- OUTSIDE RECORDS SUMMARY | 2022-01-25 13:45 | XMS_ITS | Encounter Summary ---
:1955 Author Organization [facility] Address [address] [place] [address]. [place] [address] Care Team Providers Name Role Phone Eldon Conway MD Primary Care Provider Reason for Visit Reason Comments URI uri symptoms x5 weeks, c/o s inus pain/pressure, cough Encounter Details Date Type Department Care Team Description 08/09/2008 Office Visit [facility] Eldon Conway URI ([facility] Cathy Wadsworth MD Infection) (Primary [address] [facility] [address] [facility] [place]x) [place] [address] [phone] Social History Tobacco Use Types Packs/Day Years Used Date Never Smoker Alcohol Use Standard Drinks/Week Comments No 0 (1 standard drink = 0.6 oz pure alcoho l) Sex Assigned at Date Recorded Not on file documented as of this encounter Last Filed Vital Signs Vital Sign Reading Time Taken Comments Blood Pressure 110/62 08/09/2008 8:30 AM PRINTING MACHINE OPERATOR Pulse 80 08/09/2008 8:30 AM PRINTING MACHINE OPERATOR Temperature 36.8 ??C (98.2 ??F) 08/09/2008 8:30 AM PRINTING MACHINE OPERATOR Respiratory Rate 16 08/09/2008 8:30 AM PRINTING MACHINE OPERATOR Oxygen Saturation - - Inhaled Oxygen Concentration - - Weight 59.9 kg (132 lb) 08/09/2008 8:30 AM PRINTING MACHINE OPERATOR Height 156.2 cm (5' 1.5) 08/09/2008 8:30 AM PRINTING MACHINE OPERATOR Body Mass Index 24.54 08/09/2008 8:30 AM PRINTING MACHINE OPERATOR documented in this encounter Progress Notes Eldon Conway - 08/09/2008 8:57 AM CST SUBJECTIVE: Danielle Waldrop is a 53 year old female patient complaining of sinus congestion for 10 day(s). OBJECTIVE: The patient appears alert and mild distress. EARS: External ears normal. Canals clear. TM's normal. NOSE/SINUS: positive findings: mucosa erythematous and swollen Sinus palpation: Maxillary sinus tender to palpation THROAT: moderate erythema NECK:positive findings: moderate anterior cervical nodes CHEST: Clear ASSESSMENT: Acute Sinusitis PLAN: See orders. In addition, I have suggested that the patient Push fluids. TING MACHINE OPERATOR documented in this encounter Nursing Notes 08/09/2008 8:30 AM CST >> LORENE Anthony Aug 09, 2008 8:37 AM Patient presents with: URI - uri symptoms x5 weeks, c/o sinus pain/pressure, cough Initial BP 110/62 Pulse 80 Temp (Src) 98.2 ??F (36.8 ??C) (Oral) Resp 16 Ht 5' 1.5 (1.562 m) Wt 132 lb (59.875 kg) LMP Hysterectomy Body mass index is 24.54 kg/(m^2).. BP completed using cuff size regular Lorene Washburn/BYRON documented in this encounter Plan of Treatment Not on filedocumented as of this encounter Visit Diagnoses Diagnosis URI (upper respiratory infection) - Prim justin Acute upper respiratory infections of un specified site documented in this encounter Care Teams Chief General Pediatric Clinic Relationship Specialty Start Date End Date Eldon Conway MD PCP - General 07/24/01 02/15/18 [address] [place] [address] documented as of this encounter
--- OUTSIDE RECORDS SUMMARY | 2022-01-25 13:46 | XMS_ITS | Encounter Summary ---
:1955 Author Organization [facility] Address [address] [place] [address] Care Team Providers Name Role Phone Eldon Conway MD Primary Care Provider Encounter Details Date Type Department Care Team Description 11/18/2004 Emergency room Kosta King MD EMERGENCY PHYSIC [facility] [address] [place] [address] (Wo rk) Social History Tobacco Use Types Packs/Day Years Used Date Never Smoker Alcohol Use Standard Drinks/Week Comments No 0 (1 standard drink = 0.6 oz pure alcoho l) Sex Assigned at Date Recorded Not on file documented as of this encounter Progress Notes Kosta King MD - 11/18/2004 11:59 PM CDT : 55 CHIEF COMPLAINT is tick bite. HISTORY OF PRESENT ILLNESS: Ghazala Robb is an otherwise healthy 49-year-old female who noticed a deer tick embedded in her left lower back tonight. She volunteers that she was up in [facility] yesterday where it was probably contracted. It was a small tick and she believes it was a deer tick. Her family member initially tried to burn it off but then, without success so pulled it out and there is an embedded head stillpresent. The tick was not described as engorged. Patient's PAST MEDICAL HISTORY is negative. She is on no MEDICATIONS, has no known drug ALLERGIES. SOCIAL HISTORY: Patient is , lives in [place], is employed in [employer]. Primary clinic is [facility]. FAMILY HISTORY is not contributory. REVIEW OF SYSTEMS is negative. She has not been febrile, she has not had any localized discomfort, has no additional complaints. All other systems are negative. PHYSICAL EXAMINATION: Vital signs - blood pressure is 114/70, pulse 83, respiratory rate is 16, oral temp is 97.9, 02 sats 97% on room air. General, pleasant, cooperative 49-year-old female, in no distress. Focused examination of her BACK shows small area of erythema measuring about 1 cm in diameter over the posterior aspect of her LEFT LOWER BACK. There is a small, dark central area representing the portion of embedded tick, by history. There is no tenderness with palpation. There is no SKIN induration or fluctuant. Remainder of INTEGUMENT examination is normal. She has normal MUSCULOSKELETAL and normal NEUROLOGIC examination. EMERGENCY DEPARTMENT COURSE AND DISCUSSION: A #11 blade was utilized to unroof the area overlying the foreign body after which it was eventually excised. Patient tolerated the procedure well and there was no bleeding or complication. I had a discussion with the patient in which I reassured her that the likelihood of developing Lyme's disease with a non-engorged tick embedded for less than 72 hours, is actually quite low. However, as she was in an endemic area and this is felt to certainly be a deer tick, prophylactic treatment was offered to her. She received 200 mg Doxycycline po x 1 in the emergency department and is educated on the characteristic rash representing first stage of Lyme's disease. Should she develop this or other concerns, she should seek medical reevaluation. DIAGNOSIS is deer tick exposure. PLAN: As described above. DISPO is discharge. [id number]_ KOSTA KING MD MT: Document: [id number] [place], [place] Name: MR#: DANIELLE ROBB -10 EMERGENCY ROOM ENCOUNTER Page 2 of 2 LCN: CELSO DSC: 11/18/2004 [place], [place] Name: MR#: DANIELLE ROBB -10 : Admit Date: Account #: 1955 11/18/2004 [id number] Doctor: KOSTA KING MD EMERGENCY ROOM ENCOUNTER Page 1 of 2 documented in this encounter Plan of Treatment Not on filedocumented as of this encounter Visit Diagnoses Not on filedocumented in this encounter Care Teams Metrology Technician Relationship Specialty Start Date End Date Eldon Conway MD PCP - General 07/24/01 02/15/18 [address] [place] [address] documented as of this encounter
--- OUTSIDE RECORDS SUMMARY | 2022-01-25 13:46 | XMS_ITS | Encounter Summary ---
:1955 Author Organization [facility] Address [address] [place] [address] Care Team Providers Name Role Phone Eldon Conway MD Primary Care Provider Reason for Visit Reason Comments Radiology Visit Encounter Details Date Type Department Care Team Description 05/30/2005 Orders Only [facility] MEDICAL EXAM [place] (Primary Dx) [address] [place] [address] Social History Tobacco Use Types Packs/Day Years Used Date Never Smoker Alcohol Use Standard Drinks/Week Comments No 0 (1 standard drink = 0.6 oz pure alcoho l) Sex Assigned at Date Recorded Not on file documented as of this encounter Plan of Treatment Not on filedocumented as of this encounter Procedures Procedure Name Priority Date/Time Associated Diagnosis Comme nts C MAMMOGRAM, SCREENING Routine 05/30/2005 Routine Medical Ex am Results for this procedure are i n the results section . documented in this encounter Results MAMMOGRAM, SCREENING (05/30/2005) P athologist Signature MAMMOGRAM Anatomical Region Laterality Modality Other Impressions 05/30/2005 Electronically filed by Niru Joya ??05/30/2005 ??11:26 AM RADIOLOGIST'S INTERPRETATION: Breast parenchyma: ??fatty/mild densitie s IMAGING IMPRESSION: (CATEGORY-1) NEGATIVE Farrukh Baird M.D. D/T: 06-07-05 Eldon Conway MD SPECIAL IMAGING STUDIES documented in this encounter Visit Diagnoses Diagnosis Routine general medical examination at a health care facility - Primary documented in this encounter Care Teams Tinter Photograph Relationship Specialty Start Date End Date Eldon Conway MD PCP - General 07/24/01 02/15/18 [address] [place] [address] documented as of this encounter
--- OUTSIDE RECORDS SUMMARY | 2022-01-25 13:46 | XMS_ITS | Encounter Summary ---
:1955 Author Organization [facility] Address [address] [place] [address] Care Team Providers Name Role Phone Eldon Conway MD Primary Care Provider Reason for Visit Reason Onset Date Comments Patient/info Update 06/12/2005 Conitunes with blood y sinus drainage Slk Encounter Details Date Type Department Care Team Description 06/12/2005 Telephone [facility] Eldon Conway Patien t/info Update Clinic Cathy Wadsworth MD (Conitunes with bloody [address] sinus drainage Slk) [place] [address] [id number] Social History Tobacco Use Types Packs/Day Years Used Date Never Smoker Alcohol Use Standard Drinks/Week Comments No 0 (1 standard drink = 0.6 oz pure alcoho l) Sex Assigned at Date Recorded Not on file documented as of this encounter Miscellaneous Notes Telephone Encounter - Yokasta Jeffery - 06/14/2005 12:03 PM CST Patient returned call and info given. New RX was faxed to [facility] per Dr. Conway. Yokasta Jeffrey LPN R INSPECTOR Telephone Encounter - Ivette Sales - 06/14/2005 10:00 AM CST LMOM to call jolynn. Ivette Sales RN R INSPECTOR Telephone Encounter - Eldon Conway - 06/12/2005 5:56 PM CST JUST A DAB OF NEOSPORIN IN HER NOSE TWICE A DAY. OR WE CAN CALL IN SOME BACTROBAN. R INSPECTOR Telephone Encounter - Aarti Keyes - 06/12/2005 9:44 AM CST Pt. called and said that she took the last pill of Levaquin today and is still having bloody nasal drainage and sinus pressure. Please advise and call her with a reponse [phone].Aarti Keyes RN. R INSPECTOR documented in this encounter Plan of Treatment Not on filedocumented as of this encounter Visit Diagnoses Not on filedocumented in this encounter Care Teams Technology Development Intern Relationship Specialty Start Date End Date Eldon Conway MD PCP - General 07/24/01 02/15/18 [address] [place] [address] documented as of this encounter
--- OUTSIDE RECORDS SUMMARY | 2022-01-25 13:46 | XMS_ITS | Encounter Summary ---
:1955 Author Organization [facility] Address [address] [place] [address]. [place] [address] Care Team Providers Name Role Phone Eldon Conway MD Primary Care Provider Reason for Visit Reason Comments Medication Problem medication not working Encounter Details Date Type Department Care Team Description 01/05/2004 Office Visit [facility] Eldon Conway, COUGH (Primary Dx) Cathy Wadsworth MD [address] [place] [address] [phone] Social History Tobacco Use Types Packs/Day Years Used Date Never Smoker Alcohol Use Standard Drinks/Week Comments No 0 (1 standard drink = 0.6 oz pure alcoho l) Sex Assigned at Date Recorded Not on file documented as of this encounter Last Filed Vital Signs Vital Sign Reading Time Taken Comments Blood Pressure 110/70 01/05/2004 1:05 PM CDT Pulse - - Temperature - - Respiratory Rate - - Oxygen Saturation - - Inhaled Oxygen Concentration - - Weight 60.3 kg (133 lb) 01/05/2004 1:05 PM CDT Height - - Body Mass Index 24.33 12/26/2003 10:00 AM CDT documented in this encounter Progress Notes 01/05/2004 1:00 PM CDT SUBJECTIVE: Danielle Robb is a 48 year old female who complains of dry cough for SEVERAL days. Sh e denies a history of no other unusual symptoms. She denies a history of asthma. Patient does not smo ke cigarettes. SHE HAS BEEN TREATEDE IN THE PAST AND HAS NOT IMPROVED. OBJECTIVE: Vitals as noted b y Nurse/MA above. Appearance: in no apparent distress. ENT- ENT exam normal, no neck nodes or sinus tenderness. Chest - chest clear to IPPA, and S1, S2 normal, no murmur, no gallop, rate regular. SESSMENT: Bronchitis PLAN:1. SEE EPICARE ORDERS Symptomatic therapy suggested: push fluids and rest . Call or return to clinic prn if these symptomsworsen or fail to improve as anticipated. documented in this encounter Nursing Notes 01/05/2004 1:00 PM CDT >> NELLY MORGAN 01/05/04 1:06 pm Danielle Robb presents for medication problem,medication not working. Initial BP 110/70 Wt 133 lbs (60.3kg) LMP Hysterectomy completed using BP cuff size: regular. documented in this encounter Plan of Treatment Not on filedocumented as of this encounter Procedures Procedure Name Priority Date/Time Associated Diagnosis Comme nts HC CHEST ONE VIEW Routine 01/05/2004 3:08 PM Cough Resu lts for this CDT procedure are i n the results section. WBC & DIFF Routine 01/05/2004 1:18 PM Cough Results f or this CDT procedure are i n the results section. documented in this encounter Results CHEST X-RAY 1 VW (01/05/2004 3:08 PM CDT) Anatomical Region Laterality Modality Other Impressions 01/05/2004 3:08 PM CDT REPORT OF OUTSIDE FILMS FROM [facility] ??CLINIC DANIELLE ROBB Cornelia ?: 55 CHEST 01/05/04: HISTORY: Cough. FINDINGS: Negative. Oseas Juarez M.D./seth D/ Ordering MD/Provider Initial Interpretat ion: Normal/Negative. Electronically filed by Odilia Anguiano ??01/05/2004 ??3:08 PM Eldon Conway MD GENERAL IMAGING WBC & DIFF (01/05/2004 1:18 PM CDT) [facility] Method Time Signature WBC 7.1 4.0 - [facility] 11.0 [facility] 10e9/L CLINIC LAB Diff Method Automated [facility] Method [facility] % Lymphocytes 34 20 - 48 % [facility] % Monocytes 6 0 - 12 % [facility] % Granulocytes 60 40 - 75 % [facility] Absolute 2.4 0.8 - 5.3 [facility] Lymphocytes 10e9/L [facility] Absolute 0.4 0.0 - 1.3 [facility] Monocytes 10e9/L [facility] Absolute 4.3 1.6 - 8.3 [facility] Granulocytes 10e9/L [facility] Specimen Anatomical Collection Method Collection Time Receive d Time (Source) Location / / Volume Laterality 01/05/2004 1:18 PM 1:19 CDT PM CDT Eldon Conway MD LABORATORY Performing Organization Address City/State/[facility] Code Phon e Number [facility] [address] [place] [address] [facility] documented in this encounter Visit Diagnoses Diagnosis Cough - Primary documented in this encounter Care Teams Special Tax Auditor Relationship Specialty Start Date End Date Eldon Conway MD PCP - General 07/24/01 02/15/18 [address] [place] [address] documented as of this encounter
--- OUTSIDE RECORDS SUMMARY | 2022-01-25 13:46 | XMS_ITS | Encounter Summary ---
:1955 Author Organization [facility] Address [address] [place] [address]. [place] [address] Care Team Providers Name Role Phone Eldon Conway MD Primary Care Provider Reason for Visit Reason Comments Sinus Problem facial pain Encounter Details Date Type Department Care Team Description 02/20/2005 Office Visit [facility] Man, ACUTE NASO PHARYNGITIS Clinic [place] Colón MD (Primary Dx) [address] [place] [address] [facility] [phone] [place] [id number] Social History Tobacco Use Types Packs/Day Years Used Date Never Smoker Alcohol Use Standard Drinks/Week Comments No 0 (1 standard drink = 0.6 oz pure alcoho l) Sex Assigned at Date Recorded Not on file documented as of this encounter Last Filed Vital Signs Vital Sign Reading Time Taken Comments Blood Pressure 110/80 02/20/2005 2:45 PM CDT Pulse 84 02/20/2005 2:45 PM CDT Temperature 36.7 ??C (98 ??F) 02/20/2005 2:45 PM CDT Respiratory Rate - - Oxygen Saturation - - Inhaled Oxygen Concentration - - Weight 58.5 kg (129 lb) 02/20/2005 2:45 PM CDT Height 157.5 cm (5' 2) 02/20/2005 2:45 PM CDT Body Mass Index 23.59 02/20/2005 2:45 PM CDT documented in this encounter Progress Notes Eldon Conway - 02/20/2005 3:10 PM CDT SUBJECTIVE: Danielle Waldrop is a 49 year old female patient complaining of SINUS CONGESTION AND FACILA PAIN for 10 day(s). OBJECTIVE: The patient appears alert and no distress. EARS: External ears normal. Canals clear. TM's normal. NOSE/SINUS: positive findings: mucosa swollen, pale, and boggy Sinus palpation: Maxillary sinus tender to palpation THROAT: normal and moderate erythema NECK:positive findings: moderate anterior cervical nodes CHEST: Clear ASSESSMENT: Acute Sinusitis PLAN: See orders. In addition, I have suggested that the patient PUSH FLUIDS. documented in this encounter Nursing Notes 02/20/2005 2:45 PM CDT >> JOEL FORBES 02/20/2005 2:46 pm Danielle Waldrop presents for complaint of facial pain and possible sinus infection. Initial BP 110/80 Pulse 84 Temp (Src) 98 (Oral) Ht 5' 2 (1.58m) Wt 129 lbs (58.5kg) LMP Hysterectomy Body Mass Index is 23.59 kg/(m^2).. BP completed using cuff size: regular documented in this encounter Plan of Treatment Not on filedocumented as of this encounter Visit Diagnoses Diagnosis Acute nasopharyngitis (common cold) - Pr imary documented in this encounter Care Teams Credit Associate Relationship Specialty Start Date End Date Eldon Conway MD PCP - General 07/24/01 02/15/18 [address] [place] [address] documented as of this encounter
--- OUTSIDE RECORDS SUMMARY | 2022-01-25 13:46 | XMS_ITS | Encounter Summary ---
:1955 Author Organization [facility] Address [address] [place] [address] Care Team Providers Name Role Phone Eldon Schwartz MD Primary Care Provider Reason for Visit Reason Comments Pre-Op Exam Encounter Details Date Type Department Care Team Description 12/26/2003 Office Visit [facility] Eldon Schwartz, PREOP EXAM OTHER Clinic [place] MD SPECIFIED (Primary Dx) [address] [place] [address] [phone] Social History Tobacco Use Types Packs/Day Years Used Date Never Smoker Alcohol Use Standard Drinks/Week Comments No 0 (1 standard drink = 0.6 oz pure alcoho l) Sex Assigned at Date Recorded Not on file documented as of this encounter Last Filed Vital Signs Vital Sign Reading Time Taken Comments Blood Pressure 102/74 12/26/2003 10:00 AM CDT Pulse - - Temperature - - Respiratory Rate - - Oxygen Saturation - - Inhaled Oxygen Concentration - - Weight 60.3 kg (133 lb) 12/26/2003 10:00 AM CDT Height 157.5 cm (5' 2) 12/26/2003 10:00 AM CDT Body Mass Index 24.33 12/26/2003 10:00 AM CDT documented in this encounter Progress Notes 12/26/2003 10:00 AM CDT PREOPERATIVE HISTORY AND PHYSICAL Daniellejamel Waldrop female 48 year old is coming for pre-op evaluation undergoing biopsy surgery for treatment of clitoral lesion . //Date of Surgery: 01/02/04 Surgeon: :Am[facility]/Surgical Facility:[facility] Fax number of Hospital/Surgical Facility: [phone] Type of Anesthesia Anticipate d: to be determined Primary Physician: ARACELIS Schwartz IMMUNIZATION: Last date of tetanus: 2 years ago ANESTHESIA COMPLICATIONS: Anesthesia Compl ications: NONE History of abnormal bleeding : NONE History of Blood Transfusions: NO No LMP date recorded. Reason: Hysterectomy. LIVING WILL: Do you have a Health Car e Directive or Living Will: NO PAST MEDICAL HISTORY There is no previous medical history on file. PAST SURGICAL HISTORY Review of patient's past surgical hist ory indicates: NONSPECIFIC PROCEDURE Comment: hysterectomy CURRENT MEDICATIONS Active Medications as of 12/26/2003: NASACORT AQ 55 MCG/ACT NA AERS, 2 puff each nostril QD (Once per day), D: 1, R: 11 TESTOSTERONE PROPIONATE 2 % TD CREA, montez ly daily, D: , R: FLONASE INHA 50 MCG/DOSE NA, 2 SPRAYS IN EACH NOSTRIL QD (Once per day), D: 1, R: 2 UNKNOWN MED DOSAGE, progest cream 10% cream use as directed, D: , R: 0 ALLERGIES ========= Allerg ies As of Date: 12/26/2003 Noted Reaction SEASONAL ALLERGIES 01/31/2003 Date Verified: 12/26/2003 FAMILY HISTORY Review of patient's family history indicates: Heart Paternal Grandfather Comment: heart attack early 50's Heart Father Comment: heart attack at 76 Alzheimers Mother Osteoporosis Mother Dep ression Mother HABITS ====== Tobacco Use: Never Alc ohol Use: No REVIEW OF SYSTEMS CONSTITUTIONAL:NEGATIVE for fever, chil ls, change in weight EYES: NEGATIVE for vision changes or irritation ENT/MOUTH: NEGATIVE for ear, anne-marie th and throat problems RESP:NEGATIVE for significant cough or SOB CV: NEGATIVE for chest pain, palpit ations or peripheral edema : per surgery MUSCULOSKELETAL: NEGATIVE for significant arthralgias or m yalgia NEURO: NEGATIVE for weakness, dizziness or paresthesias. EXAM ==== BP 102/74 Ht 5' 2 (1. 58m) Wt 133 lbs (60.3kg) LMP Hysterectomy GENERAL APPEARANCE: healthy, alert and no distress HEN T: ear canals and TM's normal and nose and mouth without ulcers or lesions RESP: lungs clear to auscu ltation - no rales, rhonchi or wheezes CV: regular rates and rhythm, normal S1 S2, no S3 or S4 and no murmur, click or rub ABDOMEN: soft, nontender, without hepatosplenomegaly or masses and bowel sounds normal (female): per surgery MS: extremities normal- no gross deformities noted NEURO: Normal str ength and tone, sensory exam grossly normal, mentation intact and speech normal. DIAGNOSTICS: 1. E KG: not run 2. CXR: 3. Labs: none indicated IMPRESSION clear for surgery For above li sted surgery and anesthesia: Patient is Low risk for surgery and perioperative complications. RECOM MENDATIONS 1.Proceed without further diagnostic evaluation. Signed Electronically by ELDON SCHWARTZ documented in this encounter Nursing Notes 12/26/2003 10:00 AM CDT >> NELLY MORGAN 12/26/2003 10:05 am 89 YO FEMALE HERE FOR A PRE-OP EXAM.BP cuff size: regular NELLY MORGAN MA documented in this encounter Plan of Treatment Not on filedocumented as of this encounter Procedures Procedure Name Priority Date/Time Associated Comments Diagnosis HCL HEMOGLOBIN Routine 12/26/2003 10:28 AM Preop Exam Other Re sults for this NONLAB CDT Specified procedure are i n the results section. documented in this encounter Results HGB (12/26/2003 10:28 AM CDT) athologist Signature Hemoglobin 14.1 11.7 - 15.7 [facility] g/dL [facility] Specimen Anatomical Collection Method Collection Time Receive d Time (Source) Location / / Volume Laterality 12/26/2003 10:28 12/26/2003 AM CDT 10:29 AM CDT Eldon Schwartz MD LABORATORY Performing Organization Address City/State/ZIP Code Phon e Number [facility] [address] [place] [address] [facility] documented in this encounter Visit Diagnoses Diagnosis Other specified pre-operative examinatio n - Primary documented in this encounter Care Teams Professor Of Theater Relationship Specialty Start Date End Date Eldon Schwartz MD PCP - General 07/24/01 02/15/18 [address] [place] [address] documented as of this encounter
--- OUTSIDE RECORDS SUMMARY | 2022-01-25 13:46 | XMS_ITS | Encounter Summary ---
:1955 Author Organization [facility] Address [address] [place] [address] Care Team Providers Name Role Phone Eldon Conway MD Primary Care Provider Encounter Details Date Type Department Care Team Description 09/29/2003 Orders Only [facility] Eldon Conway, DIAGNO SIS NOT YET Clinic [place] DEFINED (Primary Dx) [address] [phone] Social History Tobacco Use Types Packs/Day Years Used Date Never Smoker Alcohol Use Standard Drinks/Week Comments No 0 (1 standard drink = 0.6 oz pure alcoho l) Sex Assigned at Date Recorded Not on file documented as of this encounter Plan of Treatment Not on filedocumented as of this encounter Procedures Procedure Name Priority Date/Time Associated Diagnosis Comme nts ZZ CONSULT CREDIT ASSISTANT Routine 09/29/2003 DIAGNOSIS NOT YET DE FINED documented in this encounter Results CONSULT CREDIT ASSISTANT (09/29/2003) Specimen (Source) Anatomical Location Collection Method / Collectio n Time Received Time / Laterality Volume 09/29/2003 Narrative This result has an attachment that is no t available. Eldon Conway MD REFERRAL documented in this encounter Visit Diagnoses Diagnosis DIAGNOSIS NOT YET DEFINED - Primary documented in this encounter Care Teams Car Pincher Relationship Specialty Start Date End Date Eldon Conway MD PCP - General 07/24/01 02/15/[id number] [place] [address] documented as of this encounter
--- OUTSIDE RECORDS SUMMARY | 2022-01-25 13:46 | XMS_ITS | Encounter Summary ---
:1955 Author Organization [facility] Address [address] [place] [address] Care Team Providers Name Role Phone Eldon Conway MD Primary Care Provider Reason for Visit Reason Comments Erroneous encounter-disregard Encounter Details Date Type Department Care Team Description 08/18/2003 Orders Only [facility] Eldon Conway ERRONE S [facility] Cathy Wadsworth MD ENCOUNTER--DISREGARD [address] [facility] [id number] [place] [address] (Primary Dx) [place] [address] [phone] Social History Tobacco Use Types Packs/Day Years Used Date Never Smoker Alcohol Use Standard Drinks/Week Comments No 0 (1 standard drink = 0.6 oz pure alcoho l) Sex Assigned at Date Recorded Not on file documented as of this encounter Plan of Treatment Not on filedocumented as of this encounter Visit Diagnoses Diagnosis ERRONEOUS ENCOUNTER--DISREGARD - Primary documented in this encounter Care Teams Research Pharmacist Relationship Specialty Start Date End Date Eldon Conway MD PCP - General 07/24/01 02/15/18 [address] [facility] [place] [id number] documented as of this encounter
--- OUTSIDE RECORDS SUMMARY | 2022-01-25 13:46 | XMS_ITS | Encounter Summary ---
:1955 Author Organization [facility] Address [address] [place] [address] Care Team Providers Name Role Phone Eldon Conway MD Primary Care Provider Mariaelena Boland Primary Care Provider Encounter Details Date Type Department Care Team Description 08/19/2003 [facility] Eldon Conway DIAGNO SIS NOT YET Clinic [place] MD DEFINED (Primary Dx) [address] [facility] [address] [place] [address] [phone] Social History Tobacco Use Types Packs/Day Years [...] as of this encounter Visit Diagnoses Diagnosis DIAGNOSIS NOT YET DEFINED - Primary documented in this encounter Care Teams Ux Lead Relationship Specialty Start Date End Date Eldon Conway MD PCP - General 07/24/01 02/15/18 [address] [place], [place] [id number] Mariaelena Boland PCP - General Internal Medicine 02/16/18 [facility] [address] [place] [address] documented as of this encounter
--- OUTSIDE RECORDS SUMMARY | 2022-01-25 13:46 | XMS_ITS | Encounter Summary ---
:1955 Author Organization [place] Address [address] [place] [address]. [place] [address] Care Team Providers Name Role Phone Eldon Conway MD Primary Care Provider Encounter Details Date Type Department Care Team Description 08/19/2003 Office Visit [facility] Eldon Conway [facility] Cathy Wadsworth MD ENCOUNTER--DISREGARD [address] (Primary Dx) [place] [phone] Social History Tobacco Use Types Packs/Day Years Used Date Never Smoker Alcohol Use Standard Drinks/Week Comments No 0 (1 standard drink = 0.6 oz pure alcoho l) Sex Assigned at Date Recorded Not on file documented as of this encounter Progress Notes 08/19/2003 3:30 PM CORN CUTTER OPERATOR This encounter was opened in error. Please disregard. documented in this encounter Plan of Treatment Not on filedocumented as of this encounter Visit Diagnoses Diagnosis ERRONEOUS ENCOUNTER--DISREGARD - Primary documented in this encounter Care Teams Human Resources Supervisor Relationship Specialty Start Date End Date Eldon Conway MD PCP - General 07/24/01 02/15/18 [address] [employer] [employer] [facility] [place], [place] [id number] documented as of this encounter
--- OUTSIDE RECORDS SUMMARY | 2022-01-25 13:46 | XMS_ITS | Encounter Summary ---
:1955 Author Organization [place] Address [address] [place] [address] Care Team Providers Name Role Phone Eldon Conway MD Primary Care Provider Reason for Visit Reason Onset Date Comments Medication Request 12/29/2003 - Desires abx Encounter Details Date Type Department Care Team Description 12/29/2003 Telephone [facility] Eldon Conway, Medica tion Request (- [facility] [place] Desires abx) [address] [facility] [id number] [place] [id number] Social History Tobacco Use Types Packs/Day Years Used Date Never Smoker Alcohol Use Standard Drinks/Week Comments No 0 (1 standard drink = 0.6 oz pure alcoho l) Sex Assigned at Date Recorded Not on file documented as of this encounter Miscellaneous Notes Telephone Encounter - 12/29/2003 1:50 PM CDT >> MEREDITH BURGOS [facility] Dec 29, 2003 1:52 PM Surgery (biopsy of clitoris) to be done 01/02/04. Has developed a cough/cold and pre-op surgical nurse advised her to call to get on abx prophylactically before the surgery. Meredith Burgos RN documented in this encounter Plan of Treatment Not on filedocumented as of this encounter Visit Diagnoses Not on filedocumented in this encounter Care Teams Esthetician/Spa Coordinator Relationship Specialty Start Date End Date Eldon Conway MD PCP - General 07/24/01 02/15/18 [address] [facility] [address] documented as of this encounter
--- OUTSIDE RECORDS SUMMARY | 2022-01-25 13:46 | XMS_ITS | Encounter Summary ---
:1955 Author Organization [facility] Address [address] [place] [address] Care Team Providers Name Role Phone Eldon Conway MD Primary Care Provider Reason for Referral - Closed Specialty Diagnoses / Procedures Referred By Contact Refer red To Contact [place] [address] [place], [place] [address] Referral ID Status Reason Start Date Expiration Date Visits Requ ested Visits Authorized [id number] Closed 01/26/2004 06/08/2011 1 1 Reason for Visit Reason Comments Back Pain back pain x 2 weeks Encounter Details Date Type Department Care Team Description 01/23/2004 Office Visit [facility] Eldon Conway, COUGH (Primary Dx) Cathy Wadsworth MD [address] [place] [id number] [phone] Social History Tobacco Use Types Packs/Day Years Used Date Never Smoker Alcohol Use Standard Drinks/Week Comments No 0 (1 standard drink = 0.6 oz pure alcoho l) Sex Assigned at Date Recorded Not on file documented as of this encounter Last Filed Vital Signs Vital Sign Reading Time Taken Comments Blood Pressure 130/80 01/23/2004 5:00 PM CDT Pulse - - Temperature - - Respiratory Rate - - Oxygen Saturation - - Inhaled Oxygen Concentration - - Weight - - Height - - Body Mass Index - - documented in this encounter Progress Notes 01/23/2004 4:30 PM CDT SUBJECTIVE: Danielle Robb is a 48 year old female who complains of dry cough for SEVERAL days. She denies a history of no other unusual symptoms. She denies a history of asthma. Patient does not smoke cigarettes. SHE HAS NOT RESPONDED TO MEDICTION OBJECTIVE: Vitals as noted by Nurse/MA above. Appearance: in no apparent distress. ENT- ENT exam normal, no neck nodes or sinus tenderness. Chest - abnormal lung sounds clear with coughing and S1, S2 normal, no murmur, no gallop, rate regular. ASSESSMENT: Bronchitis PLAN:1.see orders Symptomatic therapy suggested: push fluids. Call or return to clinic prn if these symptoms worsen or fail to improve as anticipated. documented in this encounter Nursing Notes 01/23/2004 4:30 PM CDT >> JOEL FORBES 01/23/04 5:02 pm Cough continuing and now has back pain all the time but hurts more when she coughs, afebrile documented in this encounter Plan of Treatment Not on filedocumented as of this encounter Procedures Procedure Name Priority Date/Time Associated Diagnosis Comme nts ZZ CONSULT Routine 02/10/2004 Cough PULMONARY MEDICINE HC CHEST ONE VIEW Routine 01/23/2004 6:23 PM Cough Resu lts for this CDT procedure are i n the results section. documented in this encounter Results CONSULT PULMONARY MEDICINE (02/10/2004) Narrative This result has an attachment that is no t available. Eldon Conway MD REFERRAL CHEST X-RAY 1 VW (01/23/2004 6:23 PM CDT) Anatomical Region Laterality Modality Other Impressions 01/23/2004 6:23 PM CDT Ordering MD/Provider Initial Interpretation: Normal/Negative. Electronically filed by Janine Rajan ??01/23/2004 ??6:23 PM REPORT OF OUTSIDE FILMS FROM [facility] ??CLINIC DANIELLE ROBBLoreta ?: 55 CHEST ONE VIEW: ??01/23/04 FINDINGS: ??Negative chest. Agusto Velasquez M.D. EDEL/kyle D/ Electronically filed by Natalie Mascorro ??01/25/2004 ??12:02 PM Eldon Conway MD GENERAL IMAGING documented in this encounter Visit Diagnoses Diagnosis Cough - Primary documented in this encounter Care Teams Regrinder Operator Relationship Specialty Start Date End Date Eldon Conway MD PCP - General 07/24/01 02/15/18 [address] [place] [address] documented as of this encounter
--- OUTSIDE RECORDS SUMMARY | 2022-01-25 13:46 | XMS_ITS | Encounter Summary ---
:1955 Author Organization [place] Address [address] [place] [address] Care Team Providers Name Role Phone Eldon Conway MD Primary Care Provider Reason for Referral - Closed Specialty Diagnoses / Procedures Referred By Contact Refer red To Contact Diagnoses Acute sinusitis, unspecified Bhavin Pina MD [place] [address] [address] [place] [address] Referral ID Status Reason Start Date Expiration Date Visits Requ ested Visits Authorized [id number] Closed 06/30/2003 06/08/2011 1 1 BENDER Reason for Visit Reason Comments Sinus Problem sinus tenderness, post nasal drip, cheeks feel warm, fatigue x 2months Encounter Details Date Type Department Care Team Description 06/30/2003 Office Visit [facility] Bhavin Pina S INUSITIS NOS Clinic [place] MD [place] (Primary Dx) [address] [address] [address] [phone] [address] [place] [address] Social History Tobacco Use Types Packs/Day Years Used Date Never Smoker Alcohol Use Standard Drinks/Week Comments No 0 (1 standard drink = 0.6 oz pure alcoho l) Sex Assigned at Date Recorded Not on file documented as of this encounter Last Filed Vital Signs Vital Sign Reading Time Taken Comments Blood Pressure 118/72 06/30/2003 2:00 PM BOX BENDER Pulse - - Temperature 36.8 ??C (98.3 ??F) 06/30/2003 2:00 PM BOX BENDER Respiratory Rate - - Oxygen Saturation - - Inhaled Oxygen Concentration - - Weight 59.9 kg (132 lb) 06/30/2003 2:00 PM BOX BENDER Height 159.4 cm (5' 2.75) 06/30/2003 2:00 PM BOX BENDER Body Mass Index 23.57 06/30/2003 2:00 PM BOX BENDER documented in this encounter Progress Notes 06/30/2003 2:00 PM BOX BENDER Danielle Waldrop, a 48 year old female scheduled an appointment to discuss these issues: Please refer to Note section below for further subjective details. ACUTE SINUSITIS NOS recurrent, persisitent, pa rtiallly relieved by past effforts, had turbinate radioablatn, dissatisfied, , lungs abd ok, no h/a t hats intractabel Medical, surgical, family and social histories all reviewed and updated. ROS: CONS TITUTIONAL:NEGATIVE for fever, chills, change in weight and fatigue ENT/MOUTH: earache , hoarseness, Hx sinus infections and nasal congestion RESP:NEGATIVE for significant cough or SOB. EXAM: BP 118/7 2 Temp (Src) 98.3 (Oral) Ht 5' 2.75 (1.59m) Wt 132 lbs (59.9kg) LMP Hysterectomy GENERAL AP PEARANCE: healthy, alert and mild distress EYES: Eyes grossly normal to inspection and PERRL HENT: ea r canals and TM's normal and nose and mouth without ulcers or lesions RESP: lungs clear to auscultati on - no rales, rhonchi or wheezes CV: regular rates and rhythm, normal S1 S2, no S3 or S4 and no murm ur, click or rub. 461.9 ACUTE SINUSITIS NOS (primary encounter diagnosis) Note: [place] in [place] [facility] [place] Plan: AUGMENTIN XR 1000 MG, FLONASE INHA 50 MCG/DOSE NA, CT SCAN FACE, JAW, CONS ULT OTOLARYNGOLOGY care coordinated for ct of face/ sinuses and 2nd ent refer + luana schmidt conseling 51/25 min documented in this encounter Nursing Notes 06/30/2003 2:00 PM CST >> CODY MILLER 06/30/2003 2:12 pm Cody Miller RN documented in this encounter Plan of Treatment Not on filedocumented as of this encounter Procedures Procedure Name Priority Date/Time Associated Comments Diagnosis ZZ CONSULT Routine 10/19/2003 Acute Sinusitis Nos OTOLARYNGOLOGY (ENT) HC CT MAXILLOFACIAL W/O Routine 07/05/2003 11:23 Acute sinusit is, Results for this CONTRAST AM BOX BENDER unspecified procedure are i n the results section. documented in this encounter Results CONSULT OTOLARYNGOLOGY (10/19/2003) Narrative This result has an attachment that is no t available. Bhavin Pina MD REFERRAL CT SCAN FACE, JAW (07/05/2003 11:23 AM BOX BENDER) Anatomical Region Laterality Modality Other Specimen (Source) Anatomical Collection Method Collection Time Re ceived Time Location / / Volume Laterality 07/05/2003 11:23 AM BOX BENDER Impressions 07/08/2003 7:[address] SINUS SERIES - 07/05/2003 ?? CLINICAL HISTORY: Acute sinusitis. She h as had previous microwave surgery on the sinuses according to the patient. ?? TECHNIQUE: Thin section non-contrast cor onal images through the sinuses. ?? FINDINGS: There is very minimal mucosal thickening in the frontal, sphenoid and some ethmoid sinuses. Quest ion air fluid level within one ethmoid sinus. The maxillary sinuses are within normal limits. The infundibula of the ostiomeatal compl exes bilaterally are patent. ? IMPRESSION: ?? Very mild sinusitis. Bhavin Pina MD [employer]ING STUDIES documented in this encounter Visit Diagnoses Diagnosis Acute sinusitis, unspecified - Primary documented in this encounter Care Teams Security Compliance Engineer Relationship Specialty Start Date End Date Eldon Conway MD PCP - General 07/24/01 02/15/18 [address] [place] [address] documented as of this encounter
--- OUTSIDE RECORDS SUMMARY | 2022-01-25 13:46 | XMS_ITS | Encounter Summary ---
:1955 Author Organization [facility] Address [address] [place] [address]. [place] [address] Care Team Providers Name Role Phone Eldon Schwartz MD Primary Care Provider Reason for Visit Reason Onset Date Comments Cough 01/11/2004 continues to have ba d cough Encounter Details Date Type Department Care Team Description 01/11/2004 Telephone [facility] Eldon Schwartz, Cough (continues to Clinic [place] have bad cough) [address] [place] [id number] [phone] Social History Tobacco Use Types Packs/Day Years Used Date Never Smoker Alcohol Use Standard Drinks/Week Comments No 0 (1 standard drink = 0.6 oz pure alcoho l) Sex Assigned at Date Recorded Not on file documented as of this encounter Miscellaneous Notes Telephone Encounter - 01/11/2004 9:11 AM CDT >> LORENE WASHBURN FriJan 13, 2004 2:55 PM Pt returned call and will try OTC Guaifenisen and will return call if not feeling better, pt had questions on being contagious, she hasn't visited her mom (lives in assisted living facility) while s hes had her cough Please sign off on her med, and close encounter Lorene Washburn/KNIFEMAN >> IVETTE PAL FriJan 13, 2004 1:33 PM LMOM to call silver. She can try OTC Guaifenisen per . Ivette Pal RN >> ELDON SCHWARTZ [facility] Jan 12, 2004 2:45 PM lets try liquibid twice a day then if no results i will have pulmonmary see her. >> DENISE SANTANA FriJan 11, 2004 9:15 AM Pt calling, states she continues to have a bad cough. She states she has very thick, white phlegm that she coughs up. No fever, but will gasp with the deep cough. suggestions? Christen Galdamez RN documented in this encounter Plan of Treatment Not on filedocumented as of this encounter Visit Diagnoses Not on filedocumented in this encounter Care Teams Certified Surgical First Assistant Relationship Specialty Start Date End Date Eldon Schwartz MD PCP - General 07/24/01 02/15/18 [address] [place] [address] documented as of this encounter
--- OUTSIDE RECORDS SUMMARY | 2022-01-25 13:46 | XMS_ITS | Encounter Summary ---
:1955 Author Organization [facility] [place] Address [address] [place] [address]. [place] [address] Care Team Providers Name Role Phone Eldon Schwartz MD Primary Care Provider Reason for Visit Reason Comments Physical PE/PAP, pt is fasting this A M Encounter Details Date Type Department Care Team Description 05/16/2005 Office Visit [facility] Eldon Schwartz [facility] Cathy Wadsworth MD (Primary Dx) [address] [place] [phone] Social History Tobacco Use Types Packs/Day Years Used Date Never Smoker Alcohol Use Standard Drinks/Week Comments No 0 (1 standard drink = 0.6 oz pure alcoho l) Sex Assigned at Date Recorded Not on file documented as of this encounter Last Filed Vital Signs Vital Sign Reading Time Taken Comments Blood Pressure 112/62 05/16/2005 8:00 AM CREW MESS ATTENDANT Pulse 80 05/16/2005 8:00 AM CREW MESS ATTENDANT Temperature 36.8 ??C (98.2 ??F) 05/16/2005 8:00 AM CREW MESS ATTENDANT Respiratory Rate 16 05/16/2005 8:00 AM CREW MESS ATTENDANT Oxygen Saturation - - Inhaled Oxygen Concentration - - Weight 60.8 kg (134 lb) 05/16/2005 8:00 AM CREW MESS ATTENDANT Height 156.8 cm (5' 1.75) 05/16/2005 8:00 AM CREW MESS ATTENDANT Body Mass Index 24.71 05/16/2005 8:00 AM CREW MESS ATTENDANT documented in this encounter Progress Notes Eldon Schwartz - 05/16/2005 9:02 AM CST SUBJECTIVE: CC: Danielle Robb is a 49 year old female who presents for pe HPI: low grade back pain, thinks her ears may be plugged with cerumen HISTORIES: There is no problem list on file for this patient. Previous Medical History: None on file Review of patient's past surgical history indicates: NONSPECIFIC PROCEDURE Comment: hysterectomy No current outpatient prescriptions on file. Seasonal Allergies Social History Marital Status: Spouse Name: Artemio Years of Education: 16 Number of Children: 4 Occupational History [employer] Social History Main Topics Tobacco Use: Never Alcohol Use: No Drug Use: No Sexually Active: Yes Partners: Male Control/ Protection: Surgical Other Topics Concern Social History Narrative None on file Family History: Heart Paternal Grandfather Comment: heart attack early 50's Heart Father Comment: heart attack at 76 Alzheimers Mother Osteoporosis Mother Depression Mother HEALTH MAINTENANCE: No health maintenance topics applied. REVIEW OF OUTSIDE RECORDS: NO ROS: RESP:NEGATIVE for significant cough or SOB CV: NEGATIVE for chest pain, palpitations or peripheral edema GI: NEGATIVE for nausea, abdominal pain, heartburn, or change in bowel habits MUSCULOSKELETAL: as above NEURO: NEGATIVE for weakness, dizziness or paresthesias BP 112/62 Pulse 80 Temp (Src) 98.2 (Oral) Resp 16 Ht 5' 1.75 (1.57m) Wt 134 lbs (60.8kg) LMP Hysterectomy EXAM: GENERAL APPEARANCE: healthy, alert and no distress HENT: ear canals and TM's normal and [...] hepatosplenomegaly or masses and bowel sounds normal MS: extremities normal- no gross deformities noted SKIN: no suspicious lesions or rashes NEURO: Normal strength and tone, , mentation intact and speech normal ASSESSMENT/PLAN V70.0 ROUTINE MEDICAL EXAM (primary encounter diagnosis) Note: doing well, Plan: TSH W/FREE T4 REFLEX, A.M.A. COMPREHENSIVE MET.PANEL, A.M.A. LIPID PANEL, CBC WITH PLATELETS, UA MICRO IF POSITIVE, MAMMOGRAM, SCREENING, CRP, CARDIAC RISK, A THIN LAYER PAP SCREEN I have discussed with patient the risks, benefits, medications, treatment options and modalities. I have instructed the patient to call or schedule a follow-up appointment if any problems or failureto improve. MESS ATTENDANT documented in this encounter Nursing Notes 05/16/2005 8:00 AM CST >> LORENE WASHBURN 05/16/2005 8:15 am Patient presents with: Physical - PE/PAP, pt is fasting this AM Intial BP 112/62 Pulse 80 Temp (Src) 98.2 (Oral) Resp 16 Ht 5' 1.75 (1.57m) Wt 134 lbs (60.8kg) LMP Hysterectomy Body Mass Index is 24.72 kg/(m^2).. BP completed using cuff size regular Lorene Washburn/[facility] Last Pap= 2003, wnl Last Mammo=07/06/2002 Last DEXA=01/2003 Last TD=12/23/2001 Last Colonscopy or Flex=never SBE=yes documented in this encounter Plan of Treatment Not on filedocumented as of this encounter Procedures Procedure Name Priority Date/Time Associated Comments Diagnosis HCL CRP, CARDIAC RISK Routine 05/16/2005 8:42 AM Routine Medic al Results for this CREW MESS ATTENDANT Exam procedure are i n the results section. HCL UA MICRO IF Routine 05/16/2005 8:40 AM Routine Medical Res ults for this POSITIVE CREW MESS ATTENDANT Exam procedure are i n the results section. CL AFF CBC WITH Routine 05/16/2005 8:39 AM Routine Medical Res ults for this PLATELETS CREW MESS ATTENDANT Exam procedure are i n the results section. HCL COMPREHENSIVE Routine 05/16/2005 8:39 AM Routine Medical R esults for this METABOLIC PANEL CREW MESS ATTENDANT Exam procedure ar e in the results section. HCL TSH W/FREE T4 Routine 05/16/2005 8:39 AM Routine Medical R esults for this REFLEX CREW MESS ATTENDANT Exam procedure are i n the results section. CL AFF A.M.A. LIPID Routine 05/16/2005 8:39 AM Routine Medical Results for this PANEL CREW MESS ATTENDANT Exam procedure are i n the results section. HCL PAP THIN LAYER Routine 05/16/2005 12:00 Routine Medical Re sults for this SCREEN AM CREW MESS ATTENDANT Exam procedure are i n the results section. documented in this encounter Results CRP, CARDIAC RISK (05/16/2005 8:42 AM CREW MESS ATTENDANT) [facility] Signature CRP Cardiac <0.2 mg/L [facility] Risk Reference Values: [place] Low Risk: ? <1.0 mg/L [facility]AMP[facility] Average Risk: ? 1.0-3.0 mg/L High Risk: ?>3.0 mg/L Acute Inflammation: >8.0 mg/L The result units for this test have been changed: mg/L = mg /dL x 10 Specimen Anatomical Collection Method Collection Time Receive d Time (Source) Location / / Volume Laterality 05/16/2005 8:42 AM 5 8:47 CREW MESS ATTENDANT AM CREW MESS ATTENDANT Eldon Schwartz MD LABORATORY Performing Organization Address City/State/ZIP Code Phon e Number [facility] [address] LABS UA MICRO IF POSITIVE (05/16/2005 8:40 AM CREW MESS ATTENDANT) [facility] Signature Color Urine Yellow [facility] Appearance Urine Clear [facility] Glucose Urine Negative NEG mg/dL [facility] Bilirubin Urine Negative NEG [facility] Ketones Urine Negative NEG mg/dL [facility] Specific [place] 1.025 1.003 - [place] Urine 1.035 [facility] Blood Urine Negative NEG [facility] pH Urine 6.5 5.0 - 7.0 [place] pH [facility] Protein Albumin Negative NEG mg/dL [place] Urine [facility] Urobilinogen 0.2 0.2 - 1.0 [place] Urine EU/dL [facility] Nitrite Urine Negative NEG [facility] Leukocyte Negative NEG [place] Esterase Urine [facility] Source Midstream [place] Urine [facility] Specimen Anatomical Collection Method Collection Time Receive d Time (Source) Location / / Volume Laterality 05/16/2005 8:40 AM 5 8:45 CREW MESS ATTENDANT AM CREW MESS ATTENDANT Eldon Schwartz MD LABORATORY Performing Organization Address [facility] Phon e Number [address] [address] [facility] CBC WITH PLATELETS (05/16/2005 8:39 AM CREW MESS ATTENDANT) athologist Signature WBC 4.7 4.0 - 11.0 [place] 10e9/L [facility] RBC Count 4.79 3.8 - 5.2 [place] 10e12/L [facility] Hemoglobin 15.1 11.7 - [place] 15.7 g/dL [facility] Hematocrit 44.5 35.0 - [place] 47.0 % [facility] MCV 93 78 - 100 [place] fl [facility] MCH 31.5 26.5 - [place] 33.0 pg [facility] MCHC 33.9 32.0 - [place] 36.0 g/dL [facility] RDW 12.7 10.0 - [place] 15.0 % [facility] Platelet Count 250 150 - 450 [facility] 10e9/L [facility] Specimen Anatomical Collection Method Collection Time Receive d Time (Source) Location / / Volume Laterality 05/16/2005 8:39 AM 5 8:44 CREW MESS ATTENDANT AM CREW MESS ATTENDANT Eldon Schwartz MD LABORATORY Performing Organization Address [facility] Phon e Number [facility] [id number] [place] [address] [facility] (ABNORMAL) A.M.A. LIPID PANEL (05/16/2005 8:39 AM CREW MESS ATTENDANT) P athologist Signature Cholesterol 301 (H) 0 - 200 [place] mg/dL CLINIC LAB Comment: LDL Cholesterol is the primary guide to therapy: LDL-cholesterol goal in high risk patients is <100 mg/dL and in very high risk patients is <70 mg/dL. The NCEP recommends further evaluation of: patients with cholesterol <200 mg/dL if additional risk factors are present, cholesterol >240 mg/dL, triglycerides >150 mg/dL, or HDL <40 mg/dL. Triglycerides 157 (H) 0 - 150 mg/dL [facility] HDL Cholesterol 73 50 - 110 mg/dL [facility] LDL Cholesterol Calculated 196 (H) 0 - 129 mg/dL [facility] Comment: LDL Cholesterol is the primary guide to therapy: LDL-cholesterol goal in high risk patients is <100 mg/dL and in very high risk patients is <70 mg/dL. VLDL-Cholesterol 31 (H) 0 - 30 mg/dL [place] [facility] Cholesterol/HDL Ratio 4.1 0.0 - 5.0 [facility] Specimen Anatomical Collection Method Collection Time Receive d Time (Source) Location / / Volume Laterality 05/16/2005 8:39 AM 5 8:44 CREW MESS ATTENDANT AM CREW MESS ATTENDANT Eldon Schwartz MD LABORATORY Performing Organization Address City/State/ZIP Code Phon e Number [facility] [address] [place] [address] [facility] A.M.A. COMPREHENSIVE MET.PANEL (05/16/2005 8:39 AM CREW MESS ATTENDANT) P athologist Signature Sodium 143 133 - 144 [place] mmol/L CLINIC LAB Potassium 4.1 3.4 - 5.3 [place] mmol/L [facility] Chloride 102 94 - 109 [place] mmol/L [facility] Carbon Dioxide 32 20 - 32 [place] mmol/L [facility] Anion Gap 9 6 - 17 [place] mmol/L [facility] Glucose 89 60 - 110 [place] mg/dL [facility] Urea Nitrogen 13 5 - 24 [place] mg/dL [facility] Creatinine 0.80 0.60 - [place] 1.30 mg/dL [facility] GFR Estimate >80 >60 [place] mL/min/1.7 [facility] m2 GFR Estimate If >80 >60 [facility] mL/min/1.7 [facility] LAB m2 Calcium 9.6 8.5 - 10.4 [place] mg/dL [facility] LAB Bilirubin Total 0.6 0.2 - 1.3 [place] mg/dL [facility] LAB Albumin 4.4 3.3 - 4.6 [place] g/dL [facility] Protein Total 7.8 6.0 - 8.2 [place] g/dL [facility] Alkaline 64 40 - 150 [place] Phosphatase U/L [facility] LAB ALT 37 0 - 50 U/L [facility] AST 28 0 - 45 U/L [facility] Specimen Anatomical Collection Method Collection Time Receive d Time (Source) Location / / Volume Laterality 05/16/2005 8:39 AM 5 8:44 CREW MESS ATTENDANT AM CREW MESS ATTENDANT Eldon Schwartz MD LABORATORY Performing Organization Address City/[facility]/ZIP Code Phon e Number [facility] [address] [place] [address] [facility] TSH W/FREE T4 REFLEX (05/16/2005 8:39 AM CREW MESS ATTENDANT) P athologist Signature TSH 1.00 0.4 - 5.0 [facility] mU/L [facility] Specimen Anatomical Collection Method Collection Time Receive d Time (Source) Location / / Volume Laterality 05/16/2005 8:39 AM 5 8:44 CREW MESS ATTENDANT AM CREW MESS ATTENDANT Eldon Schwartz MD LABORATORY Performing Organization Address City/State/ZIP Code Phon e Number [facility] [address] [place] [address] [facility] A THIN LAYER PAP SCREEN (05/16/2005 12:00 AM CREW MESS ATTENDANT) Component Value Ref Test Analysis Performed At [facility] gist Range Method Time Signature PAP NIL COPATH Copath Report COPATH Patient Name: DANIELLE ROBB MR#: [id number] Specimen #: [id number] Collected: 05/16/2005 Received: 05/16/2005 Reported: 05/17/2005 14:05 Ordering Phy(s): ELDON SCHWARTZ SPECIMEN/STAIN PROCESS: Pap thin layer prep screening ([facility]) ? Pap-Cyto x 1, Reflex HPV x 1 SOURCE: Vaginal ---- Pap thin layer prep screening ([facility]) SPECIMEN ADEQUACY: Satisfactory for evaluation. -Transitional zone component absent. CYTOLOGIC INTERPRETATION: Negative for Intraepithelial Lesion or Malignancy Electronically signed out by: RENETTA Hagen (ASCP) Processed and screened at [facility] CLINICAL HISTORY: Partial Hysterectomy Post Menopausal, Previous normal pap Date of Last Pap: 01-10, TESTING LAB LOCATION: [facility] [address] [place], [place] ??[address] COLLECTION SITE: Client: ??[facility] Location: [facility] (R) Specimen (Source) Anatomical Collection Method Collection Time Re ceived Time Location / / Volume Laterality 05/16/2005 05/16/2005 2:19 PM CREW MESS ATTENDANT Eldon Schwartz MD LABORATORY Performing Organization Address City/State/ZIP Code Phon e Number [facility] documented in this encounter Visit Diagnoses Diagnosis Routine general medical examination at a health care facility - Primary documented in this encounter Care Teams [place] Relationship Specialty Start Date End Date Eldon Schwartz MD PCP - General 07/24/01 02/15/18 [address] [place] [address] documented as of this encounter
--- OUTSIDE RECORDS SUMMARY | 2022-01-25 13:46 | XMS_ITS | Encounter Summary ---
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 CHIEF COMPLAINT: Difficulty with starting urinary stream. HISTORY OF PRESENT ILLNESS: This 48-year-old female underwent a same day surgical procedure on her left shoulder for impingement syndrome due to a Workman's Comp injury, with the patient stating that she did receive a general anesthetic. The procedure was performed at [facility]. Today she has the development of suprapubic pressure and incomplete bladder emptying prompting her to seek evaluation in the emergency department. She had a similar pattern develop after a partial hysterectomy, with placement of an indwelling Szymanski catheter, short term. She denies fevers or chills. No urinary voiding symptoms,other than the inability to completely empty. PAST MEDICAL HISTORY: Her past medical history is additionally remarkable for tonsillectomy and tubal ligation. MEDICATIONS: Her medications include Vioxx and percodan for postoperative pain. ALLERGIES: SHE HAS NO KNOWN ALLERGIES. 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 She denies problem drug use. FAMILY HISTORY: Noncontributory. REVIEW OF SYSTEMS: Please see history of present illness. Completed systems review is negative. PHYSICAL EXAM: Temperature is 98.1, pulse 70, respirations 18, blood pressure 123/80. General appearance is that of a healthy, cooperative woman of stated age. HEAD, EARS, EYES, NOSE, and THROAT: Unremarkable. NECK: Trachea is midline. RESPIRATORY: LUNGS are clear. CARDIOVASCULAR: HEART is without murmur, rub, or extra sounds. ABDOMEN is slightly distended. Suprapubic tenderness to deep palpation is present with percussion dullness present as well. There is no palpable mass or organomegaly. PELVIC examination was not undertaken by this examiner. SKIN revealed no exanthem. NEUROLOGIC identified no focal or lateralized findings. EMERGENCY DEPARTMENT COURSE: The bladder was catheterized with the patient spontaneously voiding some 100 cc just prior to catheterization with an additional 200 cc residual volume collected as she was observed. Urinalysis is clear with no findings of active infection. DIAGNOSTIC IMPRESSION: Acute partial or incomplete urinary retention. DISCUSSION, PLAN, AND DISPOSITION: I indicated to the patient that this most likely manifests a uninhibited neurogenic bladder related to surgery and a general anesthetic. In light of the fact that she was able to void a larger volumespontaneously while being evaluated in this emergency department, I have recommended that the catheter be removed and not be indwelling. I have placed her on ciprofloxacin, 500 mg twice daily for 48 hours in light of the instrumentation increase of infection risk. She is to be rechecked, either by her primary care physician and/or return to the emergency department if she has recurrence of urinary retention symptoms. [id number]_ OSEAS LOGAN MD [place]: Document: [id number] [place], [place] Name: DANIELLE WALDROP EMERGENCY ROOM ENCOUNTER Page 2 of 2 LCN: CELSO DSC: 08/25/2003 [place], [place] Name: MR#: : Admit Date: DANIELLE WALDROP -10 1955 08/25/2003 Doctor: OSEAS LOGAN MD EMERGENCY ROOM ENCOUNTER Page 1 of 2 documented in this encounter Plan of Treatment Not on filedocumented as of this encounter Visit Diagnoses Not on filedocumented in this encounter Care Teams Service Desk Lead Relationship Specialty Start Date End Date Eldon Conway MD PCP - General 07/24/01 02/15/18 [address] [place] [address] documented as of this encounter
--- OUTSIDE RECORDS SUMMARY | 2022-01-25 13:46 | XMS_ITS | Encounter Summary ---
:1955 Author Organization [place] Address [address] [place] [address] Care Team Providers Name Role Phone Eldon Conway MD Primary Care Provider Reason for Visit Reason Onset Date Comments Refill Request 01/09/2004 cheratussin Encounter Details Date Type Department Care Team Description 01/09/2004 Refill [facility] Eldon Conway MD Refill Request [place] [id number] (cheratussin) [address] [place] [address] [phone] Social History Tobacco Use Types Packs/Day Years Used Date Never Smoker Alcohol Use Standard Drinks/Week Comments No 0 (1 standard drink = 0.6 oz pure alcoho l) Sex Assigned at Date Recorded Not on file documented as of this encounter Miscellaneous Notes Telephone Encounter - 01/09/2004 11:05 AM CDT >> ALBARO THOMAS Mon Jan 09, 2004 11:08 AM Last refill 01/05/04 for cheratussin, was in on the same date for cough. Albaro Thomas RN documented in this encounter Plan of Treatment Not on filedocumented as of this encounter Visit Diagnoses Not on filedocumented in this encounter Care Teams Gas Leak Inspector Relationship Specialty Start Date End Date Eldon Conway MD PCP - General 07/24/01 02/15/[address] [place] [address] documented as of this encounter
--- OUTSIDE RECORDS SUMMARY | 2022-01-25 13:46 | XMS_ITS | Encounter Summary ---
:1955 Author Organization [place] Address [address] [place] [address] Care Team Providers Name Role Phone Eldon Conway MD Primary Care Provider Reason for Visit Reason Comments URI Encounter Details Date Type Department Care Team Description 08/08/2003 Office Visit [facility] Eldon Conway, COUGH (Primary Dx) Cathy Wadsworth MD [address] [place] [phone] [phone] Social History Tobacco Use Types Packs/Day Years Used Date Never Smoker Alcohol Use Standard Drinks/Week Comments No 0 (1 standard drink = 0.6 oz pure alcoho l) Sex Assigned at Date Recorded Not on file documented as of this encounter Last Filed Vital Signs Vital Sign Reading Time Taken Comments Blood Pressure 120/74 08/08/2003 3:30 PM ELECTRIC METER TESTER SHOP Pulse - - Temperature 36.6 ??C (97.9 ??F) 08/08/2003 3:30 PM ELECTRIC METER TESTER SHOP Respiratory Rate - - Oxygen Saturation - - Inhaled Oxygen Concentration - - Weight 60.8 kg (134 lb) 08/08/2003 3:30 PM ELECTRIC METER TESTER SHOP Height - - Body Mass Index 23.93 06/30/2003 2:00 PM ELECTRIC METER TESTER SHOP documented in this encounter Progress Notes 08/08/2003 3:30 PM ELECTRIC METER TESTER SHOP SUBJECTIVE: Danielle Waldrop is a 48 year old female patient complaining of SINUS CONGESTION, FROGGY THROAT for many day(s). HAS CONTINUING CLITORAL LESION; OBJECTIVE: The patient appears alert and n o distress. EARS: External ears normal. Canals clear. TM's normal. NOSE/SINUS: positive findings: mu cosa erythematous and swollen Sinus palpation: Frontal sinus tender to palpation THROAT: mild erythe ma NECK:positive findings: moderate anterior cervical nodes CHEST: Clear PELVIC NORMAL EXT GENITAL IA EXCEPT FOR CLITORAL BODY WITH RED ABRADED AREA. ASSESSMENT:1. Acute Sinusitis; 2. CLITORAL DERMAT ITIS PLAN: See orders. In addition, I have suggested that the patient PUSH FLUIDS ELEDIL TO AREA B ID. documented in this encounter Nursing Notes 08/08/2003 3:30 PM CST >> RADHA KEYES 08/08/2003 3:40 pm BP cuff size: regular, pt. comes into the clinic with s&s of sinus drainage, and she said voice feels strained. She's had these s&s for 3 months and she's having surgery on 08-24-03. Radha Keyse RN. documented in this encounter Plan of Treatment Not on filedocumented as of this encounter Visit Diagnoses Diagnosis Cough - Primary documented in this encounter Care Teams Modern Languages Professor Relationship Specialty Start Date End Date Eldon Conway MD PCP - General 07/24/01 02/15/18 [address] [place] [address] documented as of this encounter
--- OUTSIDE RECORDS SUMMARY | 2022-01-25 13:46 | XMS_ITS | Encounter Summary ---
:1955 Author Organization [facility] Address [address] [place] [address] Care Team Providers Name Role Phone Eldon Conway MD Primary Care Provider Reason for Visit Reason Comments Sinus Problem sinus problems x 2 days Encounter Details Date Type Department Care Team Description 06/04/2005 Office Visit [facility] Edlon Conway COUGH (Primary Dx) Cathy Wadsworth MD [address] [place] [id number] [phone] Social History Tobacco Use Types Packs/Day Years Used Date Never Smoker Alcohol Use Standard Drinks/Week Comments No 0 (1 standard drink = 0.6 oz pure alcoho l) Sex Assigned at Date Recorded Not on file documented as of this encounter Last Filed Vital Signs Vital Sign Reading Time Taken Comments Blood Pressure 98/56 06/04/2005 3:15 PM CHILD NUTRITION ASSISTANT Pulse 80 06/04/2005 3:15 PM CHILD NUTRITION ASSISTANT Temperature 37.3 ??C (99.2 ??F) 06/04/2005 3:15 PM CHILD NUTRITION ASSISTANT Respiratory Rate - - Oxygen Saturation - - Inhaled Oxygen Concentration - - Weight - - Height - - Body Mass Index - - documented in this encounter Progress Notes Eldon Conway - 06/04/2005 4:03 PM CST SUBJECTIVE: Danielle Waldrop is a 50 year old female patient complaining of COUGH AND SINUS CONGESTION for MANY day(s). OBJECTIVE: The patient appears alert and mild distress. EARS: positive findings: NEG NOSE/SINUS: positive findings: mucosa erythematous and swollen Sinus palpation: Maxillary sinus tender to palpation THROAT: mild erythema NECK:positive findings: moderate anterior cervical nodes CHEST: Clear ASSESSMENT: Acute Sinusitis PLAN: See orders. In addition, I have suggested that the patient PUSH FLUIDS. D NUTRITION ASSISTANT documented in this encounter Nursing Notes 06/04/2005 3:15 PM CST >> YOKASTA FORBES 06/04/2005 3:24 pm Patient presents with: Sinus Problem - sinus problems x 2 days Initial BP 98/56 Pulse 80 Temp (Src) 99.2 (Oral) LMP Hysterectomy Estimated Body Mass Index is24.72 kg/(m^2) as calculated from: Height of 5' 1.75 (1.568m) as of 05/16/05 Weight of 134 lbs (60.782 kg) as of 05/16/05. BP completed using cuff size: large Yokasta Forbes LEAD SYSTEMS ARCHITECT documented in this encounter Plan of Treatment Not on filedocumented as of this encounter Visit Diagnoses Diagnosis Cough - Primary documented in this encounter Care Teams Blueprint Processor Relationship Specialty Start Date End Date Eldon Conway MD PCP - General 07/24/01 02/15/18 [address] [place] [address] documented as of this encounter
--- OUTSIDE RECORDS SUMMARY | 2022-01-25 13:47 | XMS_ITS | Encounter Summary ---
:1955 Author Organization [facility] Address [address], [place] [address] Care Team Providers Name Role Phone Unassigned, Provider Primary Care Provider Unavailable Encounter Details Date Type Department Care Team Description 10/09/2010 PN Conversion Only CONVERSION CONVERSION Trav Ahmadi MD [address] [place] [address] Social History Tobacco Use Types Packs/Day Years Used Date Smoking Tobacco: Never Assessed Sex Assigned at Date Recorded Not on file documented as of this encounter Plan of Treatment Not on filedocumented as of this encounter Visit Diagnoses Not on filedocumented in this encounter Care Teams In Home Sales Consultant Relationship Specialty Start Date End Date Unassigned, Provider PCP - General 02/23/01 09/20/18 [address] [place] [address] documented as of this encounter
--- OUTSIDE RECORDS SUMMARY | 2022-01-25 13:47 | XMS_ITS | Encounter Summary ---
:1955 Author Organization [facility] Address [address] [place] [address] Care Team Providers Name Role Phone Eldon Schwartz MD Primary Care Provider Reason for Referral - Closed Specialty Diagnoses / Procedures Referred By Contact Refer red To Contact Diagnoses Hypo[place] [address] [place] [address] Referral ID Status Reason Start Date Expiration Date Visits Requ ested Visits Authorized [id number] Closed 01/18/2003 06/08/2011 1 1 Reason for Visit Reason Comments Physical Encounter Details Date Type Department Care Team Description 01/18/2003 Office Visit [facility] Eldon Schwartz ROUTIN E MEDICAL EXAM (Primary Dx); Clinic Cathy Wadsworth MD ACUTE NASOPHARYNGITIS; [address] [place] [address] [place] [address] [phone] Social History Tobacco Use Types Packs/Day Years Used Date Never Smoker Alcohol Use Standard Drinks/Week Comments No 0 (1 standard drink = 0.6 oz pure alcoho l) Sex Assigned at Date Recorded Not on file documented as of this encounter Last Filed Vital Signs Vital Sign Reading Time Taken Comments Blood Pressure 98/72 01/18/2003 9:15 AM CDT Pulse - - Temperature - - Respiratory Rate - - Oxygen Saturation - - Inhaled Oxygen Concentration - - Weight 58.7 kg (129 lb 8 oz) 01/18/2003 9:15 AM CDT Height 158.1 cm (5' 2.25) 01/18/2003 9:15 AM CDT Body Mass Index 23.5 01/18/2003 9:15 AM CDT documented in this encounter Progress Notes 01/18/2003 9:15 AM CDT SUBJECTIVE: CC: Danielle Waldrop is a 47 year old female who presents for PE HPI: has concerns abou t decreased libido and chronic nasopharynx problems HISTORIES: There is no problem list on file for this patient. There is no previous medical history on file. Review of patient's past surgical histo ry indicates: NONSPECIFIC PROCEDURE Comment: hysterectomy Current prescriptions: ESTRATEST H.S. 0.625-1.25 MG OR TABS 1 TABLET DAILY LIPITOR 10 MG OR TABS 1 t ab PO QD (Once per day) FOSAMAX 10 MG OR TABS 1TABLET 2X/WEEK Review of patient's allergies indica micaela no known allergies. Social History Marital Status: Spouse Name: Years of Education: Number of children: Social History Main To [facility] Tobacco Use: Never Alcohol Use: No Drug Use: No Sexually A ctive: Yes Control/Protection: Surgical Other Topics Concern None on file Social History Narrative None on file Review of patient's family history indicates: H eart Paternal Grandfather Comment: heart attack early 50's Heart Father Comment: heart attack at 76 Alzheimers Mother Osteoporosis Mother Depres eric Mother HEALTH MAINTENANCE: LAST MAMMOGRAM: 1 yr LAST PAP.: 1yr REVIEW OF OUTSIDE RECORDS: NO ROS: CONSTITUTIONAL: NEGATIVE EYE S: NEGATIVE ENT/MOUTH: pos sinus RESP: NEGATIVE CV: NEGATIVE GI: NEGATIVE : decreased libido MUSCUL OSKELETAL: NEGATIVE INTEGUMENTARY/SKIN: NEGATIVE BREAST: NEGATIVE NEURO: NEGATIVE ENDOCRINE: NEGATIVE HEME/ALLERGY/IMMUNE: NEGATIVE PSYCHIATRIC: NEGATIVE EXAM: BP 98/72 Ht 5' 2.25 (1.581m) Wt 129 lbs 8 oz (58.741 kg) LMP Hysterectomy GENERAL APPEARANCE:healthy, alert and no distress ORGAN EX AMS: EYES: NEGATIVE HENT: NEGATIVE NECK: NEGATIVE RESP: NEGATIVE CV: NEGATIVE CHEST (BREAST): NEGATIVE LYMPH: N EGATIVE GI: NEGATIVE : NEGATIVE MS: NEGATIVE SK IN: NEGATIVE NEURO: NEGATIVE PSYCH: NEGATIVE ASSESSMENT/PLAN V70.0 ROUTIN E MEDICAL EXAM (primary encounter diagnosis) Note: has a hx of decreased libido with some help using testosterone but will consult sexual health expert. Plan: A THIN LAYER PAP SCREEN, A.M.A. [place] MET.PANEL, UA MICRO IF POSITIVE, TSH W/FREE T4 REFLEX, CBC WITH PLATELETS, A.M.A. LIPID PANEL, DEXA, BONE DENSITY, AXIAL SKEL 460 ACUTE NASOPHARYNGITIS Note: some allerg ic component Plan: THEA 180 MG OR TABS 1 tablet qd I have discussed with patient the risks, benefits, medications, treatment options and modalities. I have instructed the patient t o call or schedule a follow-up appointment if any problems or failure to improve. documented in this encounter Nursing Notes 01/18/2003 9:15 AM CDT >> FADUMO TOLEDO 01/18/2003 9:34 am Physical with Pap Hysterectomy 5 years ago Last pap 1 year ago 12/07/01, WNL SBE yes Mammo October 2002, negative BP cuff size: regular Fadumo Toledo RN documented in this encounter Plan of Treatment Not on filedocumented as of this encounter Procedures Procedure Name Priority Date/Time Associated Comments Diagnosis ZZ CONSULT UROLOGY Routine 02/17/2003 Inhibited Sexual Desire HCL UA MICRO IF Routine 01/18/2003 10:44 Routine Medical Resul ts for this POSITIVE AM CDT Exam procedure are i n the results section. CL AFF CBC WITH Routine 01/18/2003 10:44 Routine Medical Resul ts for this PLATELETS AM CDT Exam procedure are i n the results section. HCL COMPREHENSIVE Routine 01/18/2003 10:44 Routine Medical Res ults for this METABOLIC PANEL AM CDT Exam procedure ar e in the results section. HCL TSH W/FREE T4 Routine 01/18/2003 10:44 Routine Medical Res ults for this REFLEX AM CDT Exam procedure are i n the results section. CL AFF A.M.A. LIPID Routine 01/18/2003 10:44 Routine Medical R esults for this PANEL AM CDT Exam procedure are i n the results section. HCL PAP THIN LAYER Routine 01/18/2003 12:00 Routine Medical Re sults for this SCREEN AM CDT Exam procedure are i n the results section. documented in this encounter Results CONSULT UROLOGY (02/17/2003) Narrative This result has an attachment that is no t available. Eldon Schwartz MD REFERRAL A.MLoretaALoreta LIPID PANEL (01/18/2003 10:44 AM CDT) athologist Signature Cholesterol 164 <200 mg/dL [facility] Comment: Cholesterol Reference Range: <200 ??The NCEP recommends further ? evaluation of: ? 1. ??Patients with cholesterol ? greater than 200 mg/dL ? if additional risk facto rs ? are present. ? 2. ??All patients with a ? cholesterol greater than ? 240 mg/dL. Triglycerides 48 <150 mg/dL [facility] HDL Cholesterol 63 >40 mg/dL [facility] LDL Cholesterol Calculated 92 <130 mg/dL [facility] VLDL-Cholesterol 10 0 - 30 mg/dL [facility] Cholesterol/HDL Ratio 3 0 - 5 [facility] Specimen Anatomical Collection Method Collection Time Receive d Time (Source) Location / / Volume Laterality 01/18/2003 10:44 01/18/2003 AM CDT 10:45 AM CDT Eldon Schwartz MD LABORATORY Performing Organization Address City/State/ZIP Code Phon e Number [facility] [address] [place] [address] [facility] CBC WITH PLATELETS (01/18/2003 10:44 AM CDT) athologist Signature WBC 5.8 4.0 - 11.0 [place] 10e9/L [facility] RBC Count 4.43 3.8 - 5.2 [place] 10e12/L [facility] Hemoglobin 14.3 11.7 - [place] 15.7 g/dL [facility] Hematocrit 42.1 35.0 - [place] 47.0 % [facility] MCV 95 78 - 100 [facility] fl [facility] MCH 32.3 26.5 - [facility]0 pg [facility] MCHC 34.0 32.0 - [facility] 36.0 g/dL [facility] RDW 12.5 10.0 - [facility] 15.0 % [facility] Platelet Count 252 150 - 450 [facility] 10e9/L [facility] Specimen Anatomical Collection Method Collection Time Receive d Time (Source) Location / / Volume Laterality 01/18/2003 10:44 01/18/2003 AM CDT 10:45 AM CDT Eldon Schwartz MD LABORATORY Performing Organization Address City/[facility]/ZIP Code Phon e Number [address] [address] [facility] TSH W/FREE T4 REFLEX (01/18/2003 10:44 AM CDT) P athologist Signature TSH 0.60 0.4 - 5.0 [place] mU/L [facility] Specimen Anatomical Collection Method Collection Time Receive d Time (Source) Location / / Volume Laterality 01/18/2003 10:44 01/18/2003 AM CDT 10:45 AM CDT Eldon Schwartz MD LABORATORY Performing Organization Address City/[facility]/ZIP Code Phon e Number [address] [address] [facility] UA MICRO IF POSITIVE (01/18/2003 10:44 AM CDT) [facility] Method Time Signature Color Urine Yellow [facility] Appearance Urine Clear [facility] Glucose Urine Negative NEG mg/dL [facility] Bilirubin Urine Negative NEG [facility] Ketones Urine Negative NEG mg/dL [facility] Specific Union 1.020 1.001 - [place] Urine 1.035 [facility] Blood Urine Negative NEG [facility] pH Urine 6.5 5.0 - 7.0 [place] pH [facility] Protein Albumin Negative NEG mg/dL [place] Urine [facility] Urobilinogen 0.2 0.2 - 1.0 [place] Urine EU/dL [facility] Nitrite Urine Negative NEG [facility] Leukocyte Negative NEG [place] Esterase Urine [facility] Source Midstream [place] Urine [facility] Specimen Anatomical Collection Method Collection Time Receive d Time (Source) Location / / Volume Laterality 01/18/2003 10:44 01/18/2003 AM CDT 10:45 AM CDT Eldon Schwartz MD LABORATORY Performing Organization Address City/State/ZIP Code Phon e Number [facility] [address] [place] [address] [facility] A.M.A. COMPREHENSIVE MET.PANEL (01/18/2003 10:44 AM CDT) P athologist Signature Sodium 143 133 - 144 [facility] mmol/L [facility] Potassium 4.7 3.4 - 5.3 [facility] mmol/L [facility] Chloride 105 94 - 109 [facility] mmol/L [facility] Carbon Dioxide 28 20 - 32 [place] mmol/L [facility] Anion Gap 10 6 - 17 [facility] mmol/L [facility] Glucose 88 60 - 115 [facility] mg/dL [facility] Urea Nitrogen 14 5 - 24 [place] mg/dL [facility] Creatinine 0.8 0.6 - 1.3 [facility] mg/dL [facility] Calcium 9.1 8.5 - 10.4 [place] mg/dL [facility] Bilirubin Total 0.5 0.2 - 1.3 [place] mg/dL [facility] Albumin 4.2 3.3 - 4.6 [place] g/dL [facility] Protein Total 7.5 6.0 - 8.2 [place] g/dL [facility] Alkaline 51 40 - 150 [facility] Phosphatase U/L [facility] ALT 22 0 - 50 U/L [facility] AST 23 0 - 45 U/L [facility] Specimen Anatomical Collection Method Collection Time Receive d Time (Source) Location / / Volume Laterality 01/18/2003 10:44 01/18/2003 AM CDT 10:45 AM CDT Eldon Schwartz MD LABORATORY Performing Organization Address [facility] Phon e Number [place] [id number] [place] [address] [facility] A THIN LAYER PAP SCREEN (01/18/2003 12:00 AM CDT) Component Value Ref Test Analysis Performed At [facility] Range Method Time Signature Copath Report Patient Name: DANIELLE WALDROP MR#: [id number] Specimen #: [id number] Collected: 01/18/03 Received: 01/21/03 Reported: 01/24/03 11:45 Ordering Phy(s): ELDON SCHWARTZ SPECIMEN/STAIN PROCESS: Pap thin layer prep screening ? Pap-Cyto x 1, Reflex HPV x 1 SOURCE: Vaginal ---- Pap thin layer prep screening SPECIMEN ADEQUACY: Satisfactory for evaluation. -Transitional zone component absent. CYTOLOGIC INTERPRETATION: Negative for Intraepithelial Lesion or Malignancy Electronically signed out by: CHEKO Huang (ASCP) Processed and screened at [facility] CLINICAL HISTORY: Partial Hysterectomy, Previous normal pap: 12/07/01, Specimen (Source) Anatomical Collection Method Collection Time Re ceived Time Location / / Volume Laterality 01/18/2003 01/21/2003 12:0 7 PM CDT Eldon Schwartz MD LABORATORY Performing Organization Address City/[facility]/ZIP Code Phon e Number [facility] documented in this encounter Visit Diagnoses Diagnosis Routine general medical examination at a health care facility - Primary Acute nasopharyngitis (common cold) Hypoactive sexual desire disorder documented in this encounter Care Teams German Instructor Relationship Specialty Start Date End Date Eldon Schwartz MD PCP - General 07/24/01 02/15/18 [address] [place] [address] documented as of this encounter
--- OUTSIDE RECORDS SUMMARY | 2022-01-25 13:47 | XMS_ITS | Encounter Summary ---
:1955 Author Organization [facility] Address [address] [place] [address]. [place] [address] Care Team Providers Name Role Phone Eldon Conway MD Primary Care Provider Reason for Visit Reason Comments Refill Request Encounter Details Date Type Department Care Team Description 03/31/2003 Refill [facility] Eldon Conway MD Refill Request [place] [address] [address] [address] [place] [address] [place] [address] [phone] Social History Tobacco Use Types Packs/Day Years Used Date Never Smoker Alcohol Use Standard Drinks/Week Comments No 0 (1 standard drink = 0.6 oz pure alcoho l) Sex Assigned at Date Recorded Not on file documented as of this encounter Miscellaneous Notes Telephone Encounter - 03/31/2003 11:59 PM CDT >> ROBIN DEL VALLE [facility] Mar 31, 2003 9:56 AM >> CALL RECEIVED. Contact: last refill 03/15/03. Last clinic visit 03/15/03. You had told her that you wanted her to finish (2) rounds of levaquin for the sinus infection. She still has nasal pain, after finishing (1) round. S celestine Del Valle LPN documented in this encounter Plan of Treatment Not on filedocumented as of this encounter Visit Diagnoses Diagnosis Acute sinusitis, unspecified - Primary documented in this encounter Care Teams Scale Attendant Relationship Specialty Start Date End Date Eldon Conway MD PCP - General 07/24/01 02/15/[address] [place] [address] documented as of this encounter
--- OUTSIDE RECORDS SUMMARY | 2022-01-25 13:47 | XMS_ITS | Encounter Summary ---
:1955 Author Organization [facility] Address [address] [place] [address]. [place] [address] Care Team Providers Name Role Phone Eldon Conway MD Primary Care Provider Reason for Visit Reason Comments Sinus Problem Rhinorrhea, sinus pressure, fatigue for 2 months. Denies fevers, body aches. Encounter Details Date Type Department Care Team Description 01/31/2003 Office Visit [facility] Bhavin Pina S INUSITIS NOS; Clinic [place] MD Jesse RHINITIS DUE TO POLLEN [address] [place], [place] [address] [place] [phone] [facility] [phone] [place] [address] Social History Tobacco Use Types Packs/Day Years Used Date Never Smoker Alcohol Use Standard Drinks/Week Comments No 0 (1 standard drink = 0.6 oz pure alcoho l) Sex Assigned at Date Recorded Not on file documented as of this encounter Last Filed Vital Signs Vital Sign Reading Time Taken Comments Blood Pressure 110/80 01/31/2003 11:15 AM CDT Pulse - - Temperature 36.3 ??C (97.4 ??F) 01/31/2003 11:15 AM CDT Respiratory Rate - - Oxygen Saturation - - Inhaled Oxygen Concentration - - Weight - - Height - - Body Mass Index - - documented in this encounter Progress Notes 01/31/2003 11:15 AM CDT Danielle Waldrop, a 47 year old female scheduled an appointment to discuss the following issues: AC YOSEPH SINUSITIS NOS RHINITIS DUE TO POLLEN Medical, surgical, family and social histories all reviewed and updated. ROS: RESP:cough-productive CV: NEGATIVE for chest pain, palpitations or peripheral chantel ma. EXAM: BP 110/80 Temp (Src) 97.4 (Oral) LMP Hysterectomy GENERAL APPEARANCE: healthy, alert and mild distress EYES: Eyes grossly normal to inspection, PERRL and conjunctivae and sclerae normal RESP: lungs clear to auscultation - no rales, rhonchi or wheezes CV: regular rates and rhythm, yana l S1 S2, no S3 or S4 and no murmur, click or rub ABDOMEN: soft, nontender, without hepatosplenomegaly or masses and bowel sounds normal. 461.9 ACUTE SINUSITIS NOS Note: Plan: LEVAQUIN 500 MG OR TABS , NASACORT AQ 55 MCG/ACT NA AERS 477.0 RHINITIS DUE TO POLLEN Note: concomintant Plan: cont allegrta prn documented in this encounter Nursing Notes 01/31/2003 11:15 AM CDT >> CHARISMA GE 01/31/2003 11:16 am Bp right arm-regular cuff. Charisma Ge RN documented in this encounter Plan of Treatment Not on filedocumented as of this encounter Visit Diagnoses Diagnosis Acute sinusitis, unspecified Allergic rhinitis due to pollen documented in this encounter Care Teams Director Of Anesthesia Services Relationship Specialty Start Date End Date Eldon Conway MD PCP - General 07/24/01 02/15/18 [address] [place] [address] documented as of this encounter
--- OUTSIDE RECORDS SUMMARY | 2022-01-25 13:47 | XMS_ITS | Encounter Summary ---
:1955 Author Organization [facility] Address [address] [place] [address] Care Team Providers Name Role Phone Eldon Schwartz MD Primary Care Provider Reason for Visit Reason Comments Eye Problem eyes get blood shot every da y Sinus Problem facial pain continuing UTI burning on urination Encounter Details Date Type Department Care Team Description 06/28/2003 Office Visit [facility] Eldon Schwartz URINAR Y SYS SYMPTOM Clinic [facility] MD NEC (Primary Dx) [address] [address] [phone] Social History Tobacco Use Types Packs/Day Years Used Date Never Smoker Alcohol Use Standard Drinks/Week Comments No 0 (1 standard drink = 0.6 oz pure alcoho l) Sex Assigned at Date Recorded Not on file documented as of this encounter Last Filed Vital Signs Vital Sign Reading Time Taken Comments Blood Pressure 110/60 06/28/2003 9:00 AM DUMP TRUCK OPERATOR Pulse - - Temperature - - Respiratory Rate - - Oxygen Saturation - - Inhaled Oxygen Concentration - - Weight - - Height - - Body Mass Index - - documented in this encounter Progress Notes 06/28/2003 9:00 AM DUMP TRUCK OPERATOR Addended by: ELDON SCHWARTZ on: 08/18/2003,10:51 AM Modules accepted: Order Summary, Progress Notes SUBJECTIVE: 48 year old female complains of odorless vaginal discharge for several days. Denies abn ormal vaginal bleeding or significant pelvic pain or fever. No UTI symptoms. Denies history of known exposure to STD. Denies dyspareunia. she is concerned that she may have genital herpes. she has had this in the past . she has some irritation on her external genitalia. also c/o eye irritation on a daily baisis. no visual problems. no pain in her eyes. No LMP date recorded. Reason: Hysterectomy . OBJECTIVE: She appears well, afebrile. EYES; PEERRL. DISKS ARE CLEAR Abdomen: benign, soft, nonte nder, no masses. Pelvic Exam: normal vagina and vulva, normal cervix without lesions cli toris is slightly irritated and very tender to palpation. Urine dipstick: negative for all components . ASSESSMENT: 1.herpes genitalis 2. conjuntivitis PLAN: GC and chlamydia genprobe swabs sent to [facility] (not done) Treatment: Famvir 125 TID x 5 days ROV prn if symptoms persist or worsen. TOTAL VISIT WAS 25 MINUTES documented in this encounter Nursing Notes 06/28/2003 9:00 AM CST >> JOEL FORBES 06/28/2003 9:04 am BP cuff size: regular documented in this encounter Plan of Treatment Not on filedocumented as of this encounter Procedures Procedure Name Priority Date/Time Associated Diagnosis Comme nts HCL UA MICRO IF Routine 06/28/2003 9:10 AM Urinary Sys Symptom Results for this POSITIVE DUMP TRUCK OPERATOR Nec procedure are i n the results section. documented in this encounter Results (ABNORMAL) UA MICRO IF POSITIVE (06/28/2003 9:10 AM DUMP TRUCK OPERATOR) [facility] Method Time Signature Color Urine Yellow [facility] Appearance Urine Clear [facility] Glucose Urine Negative NEG mg/dL [facility] Bilirubin Urine Negative NEG [facility] Ketones Urine Trace (A) NEG mg/dL [facility] Specific [place] 1.025 1.001 - [place] Urine 1.035 [facility] Blood Urine Negative NEG [facility] pH Urine 6.0 5.0 - 7.0 [place] pH [facility] Protein Albumin Negative NEG mg/dL [place] Urine [facility] Urobilinogen 0.2 0.2 - 1.0 [place] Urine EU/dL [facility] Nitrite Urine Negative NEG [facility] Leukocyte Negative NEG [place] Esterase Urine [facility] Source Midstream [place] Urine [facility] Specimen Anatomical Collection Method Collection Time Receive d Time (Source) Location / / Volume Laterality 06/28/2003 9:10 AM 9:16 DUMP TRUCK OPERATOR AM DUMP TRUCK OPERATOR Eldon Schwartz MD LABORATORY Performing Organization Address City/State/ZIP Code Phon e Number [facility] [address] [place] [address] [facility] documented in this encounter Visit Diagnoses Diagnosis Urinary sys symptom NEC - Primary Other symptoms involving urinary system documented in this encounter Care Teams Bar Supervisor Relationship Specialty Start Date End Date Eldon Schwartz MD PCP - General 07/24/01 02/15/18 [address] [place] [address] documented as of this encounter
--- OUTSIDE RECORDS SUMMARY | 2022-01-25 13:47 | XMS_ITS | Encounter Summary ---
:1955 Author [facility] Address [address] [place] [address] Care Team Providers Name Role Phone Mariaelena Boland MD Primary Care Provider Reason for Referral Procedure/Equipment (Routine) - Incomplete Specialty Diagnoses / Procedures Referred By Contact Refer red To Contact Diagnoses Bilateral leg edema Charisma Lucas, MARINE MACHINIST, Procedures Compression stocking thigh length 20-30 mmHg ([id number]) CORPORATE PILOT [address] [employer] [place], [place] [address] Referral ID Status Reason Start Date Expiration Date Visits V isits Requested Authorized [id number] Incomplete 08/29/2021 11/28/2022 1 1 Procedure/Equipment (Routine) - Incomplete Specialty Diagnoses / Procedures Referred By Contact Refer red To Contact Diagnoses Varicose veins of both lower extremities with complications Charisma Lucas, Procedures VL US Lower Extremity Bilat Venous Reflux ELIECER, RANJAN [address] [employer] [place], [place] [address] Referral ID Status Reason Start Date Expiration Date Visits V isits Requested Authorized [id number] Incomplete 08/29/2021 11/28/2022 1 1 Reason for Visit Reason Comments CONSULT Ankle swelling/pain Encounter Details Date Type Department Care Team Description 08/29/2021 Initial Consult Heart & Vascular Charisma Lucas veins of both lower extremities with complications (Primary Dx); [facility], ELIECER, CORPORATE PILOT Bilateral leg edema; [facility] [address] Spider veins [address] [facility], [address] [place] [address] [phone] Social History Tobacco Use Types Packs/Day Years Used Date Smoking Tobacco: Never Sex Assigned at Date Recorded Not on file documented as of this encounter Last Filed Vital Signs Vital Sign Reading Time Taken Comments Blood Pressure 155/89 08/29/2021 11:06 AM CDT Pulse 77 08/29/2021 11:06 AM CDT Temperature - - Respiratory Rate - - Oxygen Saturation - - Inhaled Oxygen Concentration - - Weight - - Height - - Body Mass Index - - documented in this encounter Progress Notes Miri Huntley RN - 08/29/2021 10:45 AM CDT Assisted pt in scheduling venous reflux and follow-up with Dr. Hernandez on 08/30. Charisma Lucas APRN, CNP - 08/29/2021 10:45 AM CDT VASCULAR SURGERY CONSULT NOTE Chief Complaint: CONSULT (Ankle swelling/pain) HPI: Patient seen in consult today by self-referral. Danielle Waldrop is a pleasant 66 y.o. female. Lives in [place], [place]. Past medical history includes: no significant PMH Presents today for an evaluation regarding leg edema. She took a long car trip in January of last year with resultant new bilateral lower leg edema. It has continued and has some associate tightness andsoreness of the lower legs, R>L. The amount of edema does fluctuate base on activities and temperature (worse in warmer weather). She has a few visible dilated spider veins along bilateral lower legs that have been present for years without change. She denies any other leg symptoms, no claudication, rest pain, open sores or slow wound healing, no history of DVT. The patient's medical record has been reviewed. Medications have been reviewed and updated. Pertinent Social History: Alcohol Use: none, Tobacco Use: none No past medical history on file. No past surgical history on file. Review of Systems: Pertinent items are noted in HPI. EXAM: BP (!) 155/89 (BP Location: Right Arm, BP Cuff Size: Regular) Pulse 77 There is no height or weight on file to calculate BMI. General: Appears healthy. Alert; in no acute distress. Pleasant. HEENT: Head: Normocephalic, no lesions, without obvious abnormality. Respiratory: Non-labored, breathing room air Extremities: BLE: Feet/toes warm, motor and sensory intact, palpable DP/PT pulse, +1 edema Varicose Veins: no visible large dilated and tortuous veins, spider veins bilaterally Skin: No rashes, wounds or skin breakdown. Musculoskeletal: Gait is appropriate. Moves all extremities well. Back is nontender. Neurological: Normal coordination. No tremor. Psych: Affect is normal, patient is appropriate, grooming is appropriate. ASSESSMENT: ICD-10-CM 1. Varicose veins of both lower extremities with complications I83.893 [facility] Lower Extremity Bilat Venous Reflux 2. Bilateral leg edema R60.0 3. Spider veins I78.1 PLAN: Discussed and educated the patient on etiology, natural history and treatment options for varicose veins. She has no large visible dilated veins on exam. Given her edema and generalized leg pain, it isreasonable to rule out venous insufficiency. ?? Patient was instructed to return to the clinic for a duplex ultrasound for venous insufficiency and follow up with vascular surgeon ?? Script for compression stockings provided. Total Time: 27 min Charisma Lucas APRN, CNP, Vascular Surgery 4:27 PM 08/29/2021 Pager # [phone] This dictation was done using voice recognition software and may contain voice recognition errors. documented in this encounter Plan of Treatment Not on filedocumented as of this encounter Results US Lower Extremity Bilat Venous Reflux (08/30/2021 2:48 PM CDT) Anatomical Region Laterality Modality Vascular, Lower Extremity, Leg Ultrasoun d Specimen (Source) Anatomical Location Collection Method / Collectio n Time Received Time / Laterality Volume Impressions 09/03/2021 1:39 PM CDT There are multiple incompetent varicosit ies within the right and left lower extremities. No evidence of right or left lower extre mity deep vein thrombosis. Narrative 09/03/2021 1:39 PM CDT Indication: Swelling A duplex ultrasound study using Doppler was performed, to evaluate the bilateral lower extremity veins for valv ular incompetence with the patient in a reverse Trendelenburg position. RIGHT LOWER EXTREMITY The great saphenous vein diameters: saph enofemoral junction: 5.1mm, immediately after the saphenofemoral yuko ction: 5.0mm, proximal thigh: 3.4mm, knee: 3.2mm. The great saphenous vein is competent along its length. The small saphenous vein at the proximal calf measures 1.1mm. The small saphenous vein is competent in its entir ety. There is no evidence of incompetent perf orator veins at any level. There is evidence of multiple incompeten t varicose veins with the largest measuring 2.0mm. The time of incompetenc e is greater than 500 milliseconds. The great and small saphenous veins are fully compressible with no evidence of thrombus. The gastrocnemius veins were segmentally visualized and are fully compressible where seen. The deep venous system is competent and free of thrombus. LEFT LOWER EXTREMITY The great saphenous vein diameters: saph enofemoral junction: 6.4mm, immediately after the saphenofemoral yuko ction: 5.2mm, proximal thigh: 3.8mm, knee: 2.3mm. The great saphenous vein is competent along its length. The small saphenous vein at the proximal calf measures 3.7mm. The small saphenous vein is competent in its entir ety. There is no evidence of incompetent perf orator veins at any level. There is evidence of multiple incompeten t varicose veins with the largest measuring 2.0mm. The time of incompetenc e is greater than 500 milliseconds. The great and small saphenous veins are fully compressible with no evidence of thrombus. The gastrocnemius veins were segmentally visualized and are fully compressible where seen. The deep venous system is competent and free of thrombus. Charisma Lucas MARINE MACHINIST, CORPORATE PILOT RAD VASCULAR US documented in this encounter Visit Diagnoses Diagnosis Varicose veins of both lower extremities with complications - Primary Bilateral leg edema Edema Spider veins Nevus, non-neoplastic Varicose veins of both lower extremities with complications documented in this encounter Care Teams Kindergarten Instructional Assistant Relationship Specialty Start Date End Date Mariaelena Boland MD PCP - General Internal Medicine 09/21/[address] [place] [address] documented as of this encounter
--- OUTSIDE RECORDS SUMMARY | 2022-01-25 13:47 | XMS_ITS | Encounter Summary ---
:1955 Author Organization [facility] Address [address] [place] [address] Care Team Providers Name Role Phone Eldon Conway MD Primary Care Provider Encounter Details Date Type Department Care Team Description 09/29/2002 Abstract [facility] [id number] [place] [address] [phone] Social History Tobacco Use Types Packs/Day Years Used Date Never Assessed Sex Assigned at Date Recorded Not on file documented as of this encounter Plan of Treatment Not on filedocumented as of this encounter Procedures Procedure Name Priority Date/Time Associated Diagnosis Comme nts ABSTRACT MAMMO-NO CHARGE Routine 07/06/2002 ABSTRACT PAP (HIM EXTERNAL RESULT) Routine 12/07/2001 documented in this encounter Results ABSTRACT MAMMO-NO CHARGE (07/06/2002) Anatomical Region Laterality Modality Other [facility] ABSTRACT PAP-NO CHARGE (12/07/2001) [facility] - HIM EXTERNAL RESULT documented in this encounter Visit Diagnoses Not on filedocumented in this encounter Care Teams Metalsmith Relationship Specialty Start Date End Date Eldon Conway MD PCP - General 07/24/01 02/15/18 [address] [place] [address] documented as of this encounter
--- OUTSIDE RECORDS SUMMARY | 2022-01-25 13:47 | XMS_ITS | Encounter Summary ---
:1955 Author Organization [facility] Address [address] [place] [address]. [place] [address] Care Team Providers Name Role Phone Eldon Schwartz MD Primary Care Provider Reason for Visit Reason Comments Refill Request Encounter Details Date Type Department Care Team Description 11/05/2002 Telephone [facility] Eldon Schwartz MD Refill Request [place] [phone] [place] [address] [phone] Social History Tobacco Use Types Packs/Day Years Used Date Never Smoker Alcohol Use Standard Drinks/Week Comments No 0 (1 standard drink = 0.6 oz pure alcoho l) Sex Assigned at Date Recorded Not on file documented as of this encounter Miscellaneous Notes Telephone Encounter - 11/05/2002 11:59 PM CDT >> KATHARINE DEL VALLE FriNov 09, 2002 9:10 AM pharmacy notified of clarification. Katharine Del Valle LPN >> ELDON SCHWARTZ FriNov 09, 2002 8:54 AM Please call the pharm and tell them it is ok to alternate taking 1 pill then 2 pills. >> KATHARINE DEL VALLE FriNovember 05, 2002 4:52 PM >> CALL RECEIVED. Contact: Pt states that she you changed her estratest to alternate 1-2 pills qd. pharmacy called for clafification. please clarify and call arianna saeed [phone] Katharine Del Valle LPN documented in this encounter Plan of Treatment Not on filedocumented as of this encounter Visit Diagnoses Not on filedocumented in this encounter Care Teams Car Repairer Apprentice Relationship Specialty Start Date End Date Eldon Schwartz MD PCP - General 07/24/01 02/15/18 [address] [place] [address] documented as of this encounter
--- OUTSIDE RECORDS SUMMARY | 2022-01-25 13:47 | XMS_ITS | Encounter Summary ---
:1955 Author Organization [facility] Address [address] [place] [address]. [place] [address] Care Team Providers Name Role Phone Eldon Conway MD Primary Care Provider Reason for Visit Reason Comments Sinus Problem sinus inf continued x 2 week s Encounter Details Date Type Department Care Team Description 03/15/2003 Office Visit [facility] Eldon Conway, ACUTE MAXILLARY SINUSITIS; [facility] [place] MD ACUTE SINUSITIS [place] [address] [facility] [address] [place] [address] [phone] Social History Tobacco Use Types Packs/Day Years Used Date Never Smoker Alcohol Use Standard Drinks/Week Comments No 0 (1 standard drink = 0.6 oz pure alcoho l) Sex Assigned at Date Recorded Not on file documented as of this encounter Last Filed Vital Signs Vital Sign Reading Time Taken Comments Blood Pressure 120/70 03/15/2003 4:00 PM CDT Pulse - - Temperature - - Respiratory Rate - - Oxygen Saturation - - Inhaled Oxygen Concentration - - Weight - - Height - - Body Mass Index - - documented in this encounter Progress Notes 03/15/2003 4:00 PM CDT SUBJECTIVE: Danielle Waldrop is a 47 year old female patient complaining of CONGESTION for many day( s). OBJECTIVE: The patient appears healthy, alert and no distress. EARS: External ears normal. Can als clear. TM's normal. NOSE/SINUS: positive findings: mucosa erythematous and swollen Sinus palpatio n: Maxillary sinus nontender to palpation THROAT: moderate erythema NECK:positive findings: moderat e anterior cervical nodes CHEST: Clear ASSESSMENT: Acute Sinusitis PLAN: See orders. In addition, I have suggested that the patient INCREASE FLUIDS. documented in this encounter Nursing Notes 03/15/2003 4:00 PM CDT >> JOEL FORBES 03/15/2003 4:21 pm BP cuff size: regular documented in this encounter Plan of Treatment Not on filedocumented as of this encounter Visit Diagnoses Diagnosis Acute maxillary sinusitis Acute sinusitis, unspecified documented in this encounter Care Teams Coil Former Relationship Specialty Start Date End Date Eldon Conway MD PCP - General 07/24/01 02/15/18 [address] [place] [address] documented as of this encounter
--- OUTSIDE RECORDS SUMMARY | 2022-01-25 13:47 | XMS_ITS | Encounter Summary ---
:1955 Author Organization [facility] Address [address] [place] [address]. [place] [address] Care Team Providers Name Role Phone Eldon Conway MD Primary Care Provider Reason for Visit Reason Comments Refill Request Encounter Details Date Type Department Care Team Description 11/08/2002 Refill [facility] Eldon Conway MD Refill Request [place] [address] [facility] [address] [place] [address] [place] [address] [phone] Social History Tobacco Use Types Packs/Day Years Used Date Never Smoker Alcohol Use Standard Drinks/Week Comments No 0 (1 standard drink = 0.6 oz pure alcoho l) Sex Assigned at Date Recorded Not on file documented as of this encounter Miscellaneous Notes Telephone Encounter - 11/08/2002 11:59 PM CDT >> MICHELLE SIMMS Mon Nov 08, 2002 1:44 PM >> CALL RECEIVED. Contact: Last filled 10/15/02 per pharmacy form. Last seen 09/13/02 by for nasal congestion/foot pain/hypercholesterolemia/decreased libido. Placed on Estratest at that time. Instructed to RTC in 1 month for evaluation. Pre-op scheduled for 12/23/02. Michelle Simms RN documented in this encounter Plan of Treatment Not on filedocumented as of this encounter Visit Diagnoses Not on filedocumented in this encounter Care Teams Sweet Dough Mixer Relationship Specialty Start Date End Date Eldon Conway MD PCP - General 07/24/01 02/15/18 [address] [place] [address] documented as of this encounter
--- OUTSIDE RECORDS SUMMARY | 2022-01-25 13:47 | XMS_ITS | Encounter Summary ---
:1955 Author Organization [facility] Address [address] [place] [address] Care Team Providers Name Role Phone Eldon Conway MD Primary Care Provider Reason for Visit Reason Comments Medication Request - Pt desires herpes med. Encounter Details Date Type Department Care Team Description 04/28/2003 Telephone [facility] Eldon Conway, Medica tion Request ( Clinic Cathy Wadsworth MD - Pt desires herpes [address] [place] [address] med.) [place] [address] [phone] Social History Tobacco Use Types Packs/Day Years Used Date Never Smoker Alcohol Use Standard Drinks/Week Comments No 0 (1 standard drink = 0.6 oz pure alcoho l) Sex Assigned at Date Recorded Not on file documented as of this encounter Miscellaneous Notes Telephone Encounter - 04/28/2003 11:59 PM MOLDER BENCH >> MEREDITH GOLDEN Fri Apr 29, 2003 10:17 AM Pt calling to check status of request from yesterday. Needs med JAMES as is in current outbreak. Meredith Golden RN >> MEREDITH GOLDEN Doris Apr 28, 2003 9:24 AM >> CALL RECEIVED. Contact: #[phone] Herpes outbreak. Currently at the beginning of an outbreak. Wondering if may have famvir/valtrex? Meredith Golden RN documented in this encounter Plan of Treatment Not on filedocumented as of this encounter Visit Diagnoses Not on filedocumented in this encounter Care Teams Assembly Leader Relationship Specialty Start Date End Date Eldon Conway MD PCP - General 07/24/01 02/15/18 [address] [place] [address] documented as of this encounter
--- OUTSIDE RECORDS SUMMARY | 2022-01-25 13:47 | XMS_ITS | Encounter Summary ---
:1955 Author Organization [facility] Address [address] [address] Care Team Providers Name Role Phone Mariaelena Boland MD Primary Care Provider Reason for Visit Reason Comments CONSULT Varicose veins Encounter Details Date Type Department Care Team Description 08/30/2021 Office Visit Bib Marcos, Leg swe lling (Primary [place] [address] MD Dx) Vascular Surgery [address] [facility] [address] [place] [id number] [phone] Social History Tobacco Use Types Packs/Day Years Used Date Smoking Tobacco: Never Sex Assigned at Date Recorded Not on file documented as of this encounter Last Filed Vital Signs Vital Sign Reading Time Taken Comments Blood Pressure 143/95 08/30/2021 2:49 PM CDT Pulse 81 08/30/2021 2:49 PM CDT Temperature - - Respiratory Rate - - Oxygen Saturation - - Inhaled Oxygen Concentration - - Weight - - Height - - Body Mass Index - - documented in this encounter Progress Notes Cristal Duffy RN - 08/30/2021 3:00 PM CDT No vascular follow up needed. Bib Hernandez MD - 08/30/2021 3:00 PM CDT VASCULAR SURGERY VEIN CONSULT NOTE Danielle Waldrop a 66 y.o. female presents today for an evaluation regarding varicose veins. She complains of symptoms of swelling around the ankles that acutely worsened last year. It has since settled a bit, but symptoms are aggravated by upright posture or long sedentary periods. She has denied gleaning benefit from 6 months of compression stocking utilization, leg elevation or use of oral analgesics. Risk factors for venous insufficiency include standing for long periods and positive family history for venous disease. The patient has not had previous vein surgery on the left and right lower extremity. The patient's medical record has been reviewed. Medications have been reviewed and updated. Review of Systems: A complete 14-point review of systems was reviewed and is negative except for findings as noted above. EXAM: BP (!) 143/95 (BP Location: Right Arm, BP Cuff Size: Regular) Pulse 81 GEN: Appears healthy. Alert; in no acute distress. Pleasant. EXT: peripheral pulses normal, no pedal edema, no clubbing or cyanosis, cords non-palpable, lymphadenopathy absent, muscle exam 5/5 in upper and lower extremities, neuro grossly intact VARICOSE VEINS: Right Extremity: spider veins noted on right lower extremity. Left Extremity: spider veins noted on left lower extremity. SKIN: Left extremity: No hyperpigmentation, induration, or ulceration noted. Right extremity: No hyperpigmentation, induration, or ulceration noted. Imaging Studies Reviewed: The report and images for the ultrasound done today were reviewed by me and and the patient. US Lower Extremity Bilat Venous Reflux Narrative: Indication: Swelling A duplex ultrasound study using Doppler was performed, to evaluate the bilateral lower extremity veins for valvular incompetence with the patient in a reverse Trendelenburg position. RIGHT LOWER EXTREMITY The great saphenous vein diameters: saphenofemoral junction: 5.1mm, immediately after the saphenofemoral junction: 5.0mm, proximal thigh: 3.4mm, knee: 3.2mm. The great saphenous vein is competent along its length. The small saphenous vein at the proximal calf measures 1.1mm. The small saphenous vein is competent in its entirety. There is no evidence of incompetent spectrographer veins at any level. There is evidence of multiple incompetent varicose veins with the largest measuring 2.0mm. The time of incompetence is greater than 500 milliseconds. The great and small saphenous veins are fully compressible with no evidence of thrombus. The gastrocnemius veins were segmentally visualized and are fully compressible where seen. The deep venous system is competent and free of thrombus. LEFT LOWER EXTREMITY The great saphenous vein diameters: saphenofemoral junction: 6.4mm, immediately after the saphenofemoral junction: 5.2mm, proximal thigh: 3.8mm, knee: 2.3mm. The great saphenous vein is competent along its length. The small saphenous vein at the proximal calf measures 3.7mm. The small saphenous vein is competent in its entirety. There is no evidence of incompetent spectrographer veins at any level. There is evidence of multiple incompetent varicose veins with the largest measuring 2.0mm. The time of incompetence is greater than 500 milliseconds. The great and small saphenous veins are fully compressible with no evidence of thrombus. The gastrocnemius veins were segmentally visualized and are fully compressible where seen. The deep venous system is competent and free of thrombus. Impression: There are multiple incompetent varicosities within the right and left lower extremities. No evidence of right or left lower extremity deep vein thrombosis. ASSESSMENT: ICD-10-CM 1. Leg swelling M79.89 CEAP classification for chronic venous disorders: Right Left Clinical 1 1 Etiology p p Anatomy s s Pathophys r r Venous Clinical Severity Score: PAIN: Occasional, not restricting activity or requiring pain medication (MILD = 1) VARICOSE VEINS: Few scattered (MILD = 1) PLAN: Discussed and educated the patient on etiology, natural history and treatment options for varicose veins. We discussed continuation of conservative measures such as leg elevation and compression to help alleviate the symptoms above. The patient does not have significant enough findings and symptoms ofsuperficial venous reflux on ultrasound to warrant surgical intervention. Given all of the above, the patient was instructed to return to the clinic as needed, no further treatment is required at this time. Time spent with patient 30 minutes, greater than 50% of which was spent in consultation regarding diagnosis, treatment options, alternative therapies, complications, and expected outcomes. Bib Hernandez MD 3:19 PM 08/30/2021 documented in this encounter Plan of Treatment Not on filedocumented as of this encounter Visit Diagnoses Diagnosis Leg swelling - Primary Swelling of limb documented in this encounter Care Teams Bill Sorter Relationship Specialty Start Date End Date Mariaelena Boland MD PCP - General Internal Medicine 09/21/[address] [place] [address] documented as of this encounter
--- OUTSIDE RECORDS SUMMARY | 2022-01-25 13:47 | XMS_ITS | Encounter Summary ---
:1955 Author Organization [facility] Address [address] [place] [address]. [place] [address] Care Team Providers Name Role Phone Eldon Conway MD Primary Care Provider Reason for Visit Reason Comments UTI ? UTI Encounter Details Date Type Department Care Team Description 05/27/2003 Office Visit [facility] Eldon Conway DYSURI A (Primary Dx) Clinic [place] [address] [place] [phone] Social History Tobacco Use Types Packs/Day Years Used Date Never Smoker Alcohol Use Standard Drinks/Week Comments No 0 (1 standard drink = 0.6 oz pure alcoho l) Sex Assigned at Date Recorded Not on file documented as of this encounter Last Filed Vital Signs Vital Sign Reading Time Taken Comments Blood Pressure 120/70 05/27/2003 3:15 PM CIGARETTE MAKING MACHINE HOPPER FEEDER Pulse - - Temperature - - Respiratory Rate - - Oxygen Saturation - - Inhaled Oxygen Concentration - - Weight - - Height - - Body Mass Index - - documented in this encounter Progress Notes 05/27/2003 3:15 PM CIGARETTE MAKING MACHINE HOPPER FEEDER SUBJECTIVE: Danielle Waldrop is a 48 year old female who complains of urinary frequency, urgency and dysuria x 3 days, without flank pain, fever, chills, or abnormal vaginal discharge or bleeding. OBJ ECTIVE: Appears well, in no apparent distress. Vital signs are normal. The abdomen is soft without t enderness, guarding, mass, rebound or organomegaly. No CVA tenderness or inguinal adenopathy noted. U rine dipstick shows negative for all components. Micro exam: negative for WBC's or RBC's. ASSESSME NT:1. UTI ; by hx since ua appears clear PLAN: Treatment per orders; cipro for 3 days - also push fl uids, may use Pyridium OTC prn. Call or return to clinic prn if these symptoms worsen or fail to impr ove as anticipated. documented in this encounter Nursing Notes 05/27/2003 3:15 PM CST >> JOEL FORBES 05/30/2003 6:54 pm new med Pregest 10% cream apply bid documented in this encounter Plan of Treatment Not on filedocumented as of this encounter Visit Diagnoses Diagnosis Dysuria - Primary documented in this encounter Care Teams Decorating Inspector Relationship Specialty Start Date End Date Eldon Conway MD PCP - General 07/24/01 02/15/18 [address] [place] [address] documented as of this encounter
--- OUTSIDE RECORDS SUMMARY | 2022-01-25 13:47 | XMS_ITS | Encounter Summary ---
:1955 Author Organization [facility] Address [address] [place] [address] Care Team Providers Name Role Phone Eldon Conway MD Primary Care Provider Reason for Visit Reason Comments Infection - Unresolved sx. 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 Contact: #[phone] Tequin rx'd for sinus, UTI and blood shot eyes. Now done w/rx and sx remain. ??? suggestions. Different abx? Meredith Burgos RN documented in this encounter Plan of Treatment Not on filedocumented as of this encounter Visit Diagnoses Not on filedocumented in this encounter Care Teams Laundry Machine Tender Relationship Specialty Start Date End Date Eldon Conway MD PCP - General 07/24/01 02/15/[id number] [place] [address] documented as of this encounter
--- OUTSIDE RECORDS SUMMARY | 2022-01-25 13:47 | XMS_ITS | Encounter Summary ---
:1955 Author Organization Counts include 234 beds at the [facility] Address [address] [place] [address] Care Team Providers Name Role Phone Mariaelena Boland MD Primary Care Provider Reason for Visit Procedure/Equipment (Routine) - Incomplete Specialty Diagnoses / Procedures Referred By Contact Refer red To Contact Diagnoses Varicose veins of both lower extremities with complications Charisma Lucas, Procedures US Lower Extremity Bilat Venous Reflux LIFE SKILLS TRAINER, ORACLE FINANCIAL APPLICATION DEVELOPER [address] [place], [place] [address] Referral ID Status Reason Start Date Expiration Date Visits V isits Requested Authorized [id number] Incomplete 08/29/2021 11/28/2022 1 1 Encounter Details Date Type Department Care Team Description 08/30/2021 [facility] Charisma Silveira Varicose veins of Procedure [place] [address] C, LIFE SKILLS TRAINER, ORACLE FINANCIAL APPLICATION DEVELOPER both lower Vascular Lab [address] with [address] [place] [phone] Social History Tobacco Use Types Packs/Day Years Used Date Smoking Tobacco: Never Sex Assigned at Date Recorded Not on file documented as of this encounter Plan of Treatment Not on filedocumented as of this encounter Procedures Procedure Name Priority Date/Time Associated Diagnosis Comme nts VL US LOWER Routine 08/30/2021 2:48 PM Varicose veins of both Results for this EXTREMITY BILAT CDT lower extremities with pr ocedure are in VENOUS REFLUX complications the results section. documented in this encounter Results VL US Lower Extremity Bilat Venous Reflux (08/30/2021 [...] competent and free of thrombus. Charisma Lucas LIFE SKILLS TRAINER, ORACLE FINANCIAL APPLICATION DEVELOPER RAD VASCULAR US documented in this encounter Visit Diagnoses Diagnosis Varicose veins of both lower extremities with complications documented in this encounter Care Teams Store Stock Associate Relationship Specialty Start Date End Date Mariaelena Boland MD PCP - General Internal Medicine 09/[address] [place] [address] documented as of this encounter
--- OUTSIDE RECORDS SUMMARY | 2022-01-25 13:48 | XMS_ITS | Encounter Summary ---
:1955 Author [facility] Address [address] [place] [address] Care Team Providers Name Role Phone Unassigned, Provider Primary Care Provider Unavailable Encounter Details Date Type Department Care Team Description 09/12/2003 PN Conversion Only MANUFACTURING PROJECT ENGINEER [address] [place] [address] Social History Tobacco Use Types Packs/Day Years Used Date Smoking Tobacco: Never Assessed Sex Assigned at Date Recorded Not on file documented as of this encounter Plan of Treatment Not on filedocumented as of this encounter Visit Diagnoses Not on filedocumented in this encounter Care Teams Host/Hostess Ground Relationship Specialty Start Date End Date Unassigned, Provider PCP - General 02/23/01 09/20/[address] [place] [address] documented as of this encounter
--- OUTSIDE RECORDS SUMMARY | 2022-01-25 13:48 | XMS_ITS | Encounter Summary ---
:1955 Author Organization [facility] [employer] Address [address] [place] [address] Care Team Providers Name Role Phone Unassigned, Provider Primary Care Provider Unavailable Encounter Details Date Type Department Care Team Description 10/19/2003 PN Conversion Only [place] [facility] Neil Su, [address] [facility] [address] [place] [address] Social History Tobacco Use Types Packs/Day Years Used Date Smoking Tobacco: Never Assessed Sex Assigned at Date Recorded Not on file documented as of this encounter Progress Notes Neil Su APRN, CNP - 10/19/2003 12:01 AM CDT Progress Notes signed by Neil Su APRN, CNP at 01/27/05 193 Author: JACINTO Butler Service: (none) Author Type: Nurse Practitioner Filed: 09/27/10 2212 Note Time: 10/19/03 0001 Status: Signed Coffee Maker Servicer: JACINTO Butler (Nurse Practitioner) NAME: DANIELLE ROBB MR: [id number] ACCT: [id number] VISIT: [id number] DICTATING CLINICIAN: NEIL SU NP JOB: [id number] CLINIC PROGRESS NOTE DATE OF VISIT: 10/19/2003 ASSESSMENT: 1. Acne triggered by hormone supplements. 2. Benign skin exam. 3. Verruca versus fibrous papule. PLAN: 1. Discussed pathophysiology, skin care recommendations made. Recommend salicylic acid containing cleanser b.i.d. to the face, q. day to the chest and back. We will start Periostat 20 mg b.i.d. #60 with two refills given. Patient instructed in proper use and side effects including GI upset, photosensitivity, and allergic reaction. We will also begin BenzaClin gel 50 gm with year refills given to be applied nightly. Patient instructed in proper use. Followup in eight weeks for reevaluation. 2. Reviewed sun protection and sunscreen recommendations. 3. The lesion was treated with cryotherapy via cotton tipped applicator in a two freeze/thaw cycle. Patient tolerated procedure well and the lesion was left open to air. Reevaluate on subsequent visits. FINAL IMPRESSION: 1. Acne. 2. Benign skin exam. 3. Verruca. SUBJECTIVE: : 1955. Danielle is a 48-year-old here for evaluation of acne that began about six months back when she started taking progesterone and testosterone cream. When she noticed the acne and some terminal hair growth she decreased the testosterone dose to one-half the recommended dose. The acne is affecting the face and back consisting of deeper papules which she manipulates. Uses Neutrogena cleansers and moisturizers. Cosmetics and sunscreen are oil-free. Have tried spot treating with Oxy 10. During high school years was on some tetracycline for acne. REVIEW OF SYSTEMS: She does have some night sweats with her menopause. Has noticed a ten pound weight gain in the last six months. Had significant sun exposure during her youth. Denies striae. PAST MEDICAL HISTORY: Negative for skin cancers. She had a couple of moles removed previously that she states were benign, one about six years ago by Dr. Steven Hernandez. Also has seasonal allergies. No family history of melanoma. MEDICATIONS: Progesterone cream, testosterone cream, Nava, herbal Soy Care. ADR/ALLERGIES: NONE. OBJECTIVE: On examination of the head, face, neck, arms, back, abdomen, chest, buttocks, genitalia, legs. Patient has one inflammatory cyst that is resolving in the left central cheek. There is some comedonal acne present, a couple small papules as well. She has some superficial inflammatory closed comedones on the upper portion of the back; otherwise clear for acne. She has multiple freckle lentigines and well-marginated, benign-appearing nevi on the entire body. She does have a pinkish-purple, shiny, smooth papule on the right upper shoulder where patient states she recently had arthroscopic shoulder surgery and this was the scope site. She has a couple vascular papules on the right vulva. Otherwise no concerning lesions. Patient has a small pink papule along the right alar groove that she has had it treated with cryotherapy previous. BAS:[id number] C: 10/20/03 12:26 DOCUMENT: [id number] documented in this encounter Plan of Treatment Not on filedocumented as of this encounter Visit Diagnoses Not on filedocumented in this encounter Care Teams Animal Assisted Therapist Relationship Specialty Start Date End Date Unassigned, Provider PCP - General 02/23/01 09/20/[address] [place] [address] documented as of this encounter
--- OUTSIDE RECORDS SUMMARY | 2022-01-25 13:48 | XMS_ITS | Encounter Summary ---
:1955 Author [facility] Address [address] [place] [address] Care Team Providers Name Role Phone Unassigned, Provider Primary Care Provider Unavailable Encounter Details Date Type Department Care Team Description 12/02/2008 PN Conversion Only [place] [address] [address] [place] [address] Social History Tobacco Use Types Packs/Day Years Used Date Smoking Tobacco: Never Assessed Sex Assigned at Date Recorded Not on file documented as of this encounter Plan of Treatment Not on filedocumented as of this encounter Visit Diagnoses Not on filedocumented in this encounter Care Teams Foamite Mixer Relationship Specialty Start Date End Date Unassigned, Provider PCP - General 02/23/01 09/20/[address] [place] [address] documented as of this encounter
--- OUTSIDE RECORDS SUMMARY | 2022-01-25 13:48 | XMS_ITS | Encounter Summary ---
:[address] [facility] [facility] Address [address] [place] [address] Care Team Providers Name Role Phone Unassigned, Provider Primary Care Provider Unavailable Encounter Details Date Type Department Care Team Description 01/31/1998 PN Conversion Only Jack Pillai Obstetrics/[place] [address] [facility] [address] [place] [address] [place], [place] [id number] (Wo rk) Social History Tobacco Use Types Packs/Day Years Used Date Smoking Tobacco: Never Assessed Sex Assigned at Date Recorded Not on file documented as of this encounter Progress Notes Jack Malin - 01/31/1998 12:01 AM CDT Progress Notes signed by Jack Malin MD at 02/09/98 1523 Author: Jack Malin MD Service: (none) Author Type: Physician Filed: 09/26/10 0601 Note Time: 01/31/98 0001 Status: Signed Pairer: Jack Malin MD (Physician) IMPRESSION: Recent diagnosis of herpes simplex type I, genital. Vulvar varicosities. SUBJECTIVE: Danielle Pratt. Chief Complaint: recent diagnosis of genital herpes simplex. Danielle Pratt is a 42-year-old female status post vaginal hysterectomy in August 1997 who presents for consultation regarding a recent diagnosis of genital herpes. She was evaluated in the Urgent Care facility on January [address] Aron Barros complaining of external vaginal sores. A clinical diagnosis of herpes simplex was made and the patient was begun on Zovirax. A culture of the aforementioned lesions did return positive for herpes simplex type I. The patient presents today for a consultation regarding the aforementioned diagnosis. We discussed in detail the clinical nature of herpes simplex, its transmission rates, its sexually transmitted nature, the potential for recurrence, and the treatment of recurrent episodes and the possible need for suppressive therapy. She is in the midst of a divorce and feels that the most likely transmission was probably secondary to oral genital contact with her present partner, although I explained to her that this is speculative. Additionally, she complains of some bumps on her labia which she states were worse in the context of . She is wondering if these could potentially represent condyloma. Present medications: none. Allergies: none. Non-smoker. OBJECTIVE: BP: 116/82. Height: 5-2. Weight: 110 lb. External genitalia with multiple small vulvar varicosities. No gross condylomatous lesions noted. Vagina without focal lesions. Vaginal cuff intact. Labial sores from area described in urgent care visit have resolved. No scarring noted. ASSESSMENT: Recent diagnosis of herpes simplex type I, genital. Vulvar varicosities. PLAN: Counseling pursuant to recent diagnosis of herpes. Reassurance regarding vulvar varicosities. lap See Text, Jeremy Conv - 01/20/1998 12:01 AM CDT Progress Notes signed by at 01/13/012024 Author: Jeremy Edwards See Text Service: (none) Author Type: Resource Filed: Note Time: 01/20/98 0001 Status: Signed PHONE CALL: Danielle Pratt called today on January 20, regarding a definite herpes type I culture which was positive. She has been adequately treated. We will recheck her on a prn basis for problems. stq RESOURCE: [facility] Aron Berger MD - 01/17/1998 12:01 AM CDT Progress Notes signed by Aron Barros MD at 01/31/98 1129 Author: Aron Barros MD Service: (none) Author Type: Physician Filed: 09/26/10 0549 Note Time: 01/17/98 0001 Status: Signed Pairer: Aron Barros MD (Physician) IMPRESSION: Probable genital herpes. Yeast vaginitis. SUBJECTIVE: CHIEF COMPLAINT: Vaginal sores externally for three days. HISTORY OF PRESENT ILLNESS: Danielle Pratt is a 42-year-old patient with no known history of venereal disease, herpes or other symptoms, presents with external vaginal sores on the left upper vulvar area. She has noticed these for about three days. This feels different than a yeast infection. She is status post hysterectomy because of prolapsed uterus. No urinary symptoms. She has been through a divorce and has had one partner for six months. She knows that neither one had herpes. MEDICATIONS: None. ADVERSE DRUG REACTIONS: None. OBJECTIVE: T: 96.9. P: 98. R: 24. BP: 120/77. Examination does show about 6-7 discrete lesions typical for herpes in the left vulvar area. These were cultured for herpes. Bimanual is otherwise negative. Trichomonas and yeast culture confirmed yeast. Gen probe is pending. ASSESSMENT: External vaginal sores, probable herpes. PLAN: 1. Pending the herpes culture she was given Zovirax 400 mg tid for 10 days. 2. For subsequent episodes she was given more to have on hand, 400 mg tid for five days for each episode. She has enough for a few weeks of treatment. I suggested she get on it as soon as she can when she has an episode. 3. If any other cultures are positive we will treat accordingly. stq Aron Vanegas MD - 12/12/1997 12:01 AM CDT Progress Notes signed by Aron Vanegas MD at 04/17/02 2256 Author: Aron Vanegas MD Service: (none) Author Type: Physician Filed: 09/26/10 0516 Note Time: 12/12/97 0001 Status: Signed Pairer: Aron Vanegas MD (Physician) IMPRESSION: No dictation required. SUBJECTIVE: N/A OBJECTIVE: N/A ASSESSMENT: N/A PLAN: N/A rem RUNNER Aron Vanegas MD - 11/14/1997 12:01 AM CDT Progress Notes signed by Aron Vanegas MD at 04/17/022255 Author: Aron Vanegas MD Service: (none) Author Type: Physician Filed: 09/26/10451 Note Time: 11/14/972255 Status: Signed Pairer: Aron Vanegas MD (Physician) IMPRESSION: No dictation required. SUBJECTIVE: N/A OBJECTIVE: N/A ASSESSMENT: N/A PLAN: N/A rem Aron Levi MD - 10/17/1997 12:01 AM CDT Progress Notes signed by Aron Vanegas MD at 04/17/022255 Author: Aron Vanegas MD Service: (none) Author Type: Physician Filed: 09/26/10425 Note Time: 10/17/972255 Status: Signed Pairer: Aron Vanegas MD (Physician) IMPRESSION: No dictation required. SUBJECTIVE: N/A OBJECTIVE: N/A ASSESSMENT: N/A PLAN: N/A rem Aron Levi MD - 10/03/1997 12:01 AM CDT Progress Notes signed by Aron Vanegas MD at 04/17/022255 Author: Aron Vanegas MD Service: (none) Author Type: Physician Filed: 09/26/10 0413 Note Time: 10/03/972255 Status: Signed Pairer: Aron Vanegas MD (Physician) IMPRESSION: No dictation required. SUBJECTIVE: N/A OBJECTIVE: N/A ASSESSMENT: N/A PLAN: N/A rem Aron Levi MD - 09/19/1997 12:01 AM CDT Progress Notes signed by Aron Vanegas MD at 04/17/022255 Author: Aron Vanegas MD Service: (none) Author Type: Physician Filed: 09/26/10 0400 Note Time: 04/13/98 0001 Status: Signed Pairer: Aron Vanegas MD (Physician) IMPRESSION: No dictation required. SUBJECTIVE: N/A OBJECTIVE: N/A ASSESSMENT: N/A PLAN: N/A kjp Aron Levi MD - 09/12/1997 12:01 AM CDT Progress Notes signed by Aron Vanegas MD at 04/17/02 2256 Author: Aron Vanegas MD Service: (none) Author Type: Physician Filed: 09/26/10 0354 Note Time: 09/12/972255 Status: Signed Pairer: Aron Vanegas MD (Physician) IMPRESSION: No dictation required. SUBJECTIVE: N/A OBJECTIVE: N/A ASSESSMENT: N/A PLAN: N/A rem Trav Larios - 08/31/1997 12:01 AM CST Progress Notes signed by Trav Proctor MD at 09/06/97 1312 Author: Trav Proctor MD Service: (none) Author Type: Physician Filed: 09/26/10 0345 Note Time: 08/31/972255 Status: Signed Pairer: Trav Proctor MD (Physician) IMPRESSION: Preop exam. SUBJECTIVE: Patient is in today for a preop exam for a vaginal hysterectomy by Dr. Vanegas and Dr. Davidson. OBJECTIVE: Exam today shows no contraindications to the procedure or anesthesia being planned. ASSESSMENT: N/A. PLAN: N/A. sls Aron Levi MD - 08/29/1997 12:01 AM CST Progress Notes signed by Aron Vanegas MD at 09/07/97 1055 Author: Aron Vanegas MD Service: (none) Author Type: Physician Filed: 09/26/10 0342 Note Time: 08/29/97 0001 Status: Signed Pairer: Aron Vanegas MD (Physician) IMPRESSION: Pelvic descensus. SUBJECTIVE: Danielle Pratt is a 42-year-old female who returns for further discussion regarding planning her vaginal hysterectomy and anterior and posterior repair. This is scheduled as an AM admit patient at [facility] for September 05. Dr. Cristina Davidson will assist me. OBJECTIVE: N/A ASSESSMENT: N/A PLAN: The plan will be to do this under general anesthesia in the lithotomy position, preserving both ovaries. Again, I have discussed in great detail with the patient the indications, nature, and relative risks of planned procedure. 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 SUBJECTIVE: The patient is a 42-year-old female referred by Dr. Cristina Davidson for evaluation of pelvic relaxation and hemorrhoids. The patient states that over the last several years she has had the sensation with upright position of having tissue come out through her vagina and especially with exercising or straining. The patient denies any difficulty having a bowel movement with this or having to use her hand to push tissue back in to have a bowel movement. She denies significant urinary incontinence with coughing, sneezing, or laughing, although with vigorous physical activity she does have some leakage of urine, but she apparently feels that it has not been socially a problem for her. The patient more recently has developed a nodule in the left aspect of her anal canal which has been somewhat tender although it is not bothering her to a great extent. REVIEW OF SYSTEMS otherwise are essentially negative. The patient should be noted is 3 para 3 female who has had her fallopian tubes ligated. She is on no other medications. 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 OBJECTIVE: Examination reveals a healthy-appearing thin female with examination confined primarily to the pelvis and anal rectal area. On exam of the pelvis and perineal area reveals normal external genitalia. With straining, the patient has an obvious pelvic relaxation with a prolapse of her uterus and the bladder with a large cystocele. Further examination reveals a small rectocele. Anal exam reveals the patient to have a small less than a centimeter thrombosed external hemorrhoid on the left aspect of her anal canal which is not particularly tender. No other anal pathology noted other than the rectocele. She does have good anal sphincter function and tone. Bimanual examination reveals a uterus which is mobile and easily prolapses through the introitus with straining. No abnormal adnexal structures noted. 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 PLAN: I spent considerable time with the patient discussing the fact that in my opinion the patient is a candidate for surgical repair of her pelvic relaxation including a vaginal hysterectomy and anterior/posterior repair. I did tell her that I felt the hemorrhoid would resolve on its own, and if not that we would be able to do an enucleation of the clot from the external hemorrhoid. I did tell her I would discuss with Dr. Davidson my impressions and that we would then plan to proceed accordingly. She is anxious to proceed as soon as possible with Surgery. cc: Cristina Davidson MD [facility] RUNNER Trav Proctor - 08/17/1997 12:01 AM CST Progress Notes signed by Trav Proctor MD at 08/26/97 1114 Author: Trav Proctor MD Service: (none) Author Type: Physician Filed: 09/26/10 0332 Note Time: 08/17/97 0001 Status: Signed Pairer: Trav Proctor MD (Physician) IMPRESSION: 1. Essentially normal exam with a uterine descensus. 2. History of hyperlipidemia. SUBJECTIVE: This patient is in today for a general physical. She is 42 years of age. She said that she lost about 30 pounds through [employer] back between mid-April to the end of May of last year, and she feels better about that. She has also had some uterine descensus. She had seen Dr. Loja about that recently and has an appointment to see Dr. Pierson about it sometime in the future. Her father had a CABG and had hyperlipidemia. The patient herself has been known to have hyperlipidemia, and she had taken some lipid-lowering drugs for some time but stopped those here about 4 or 5 months ago. At the time she was losing weight because she wanted to know if the weight loss would resolve the hyperlipidemia. Other History: She has had hemorrhoid problems periodically, and she has had minor problems with bunions, mostly on the right foot. She is a nonsmoker. Adverse Drug Reactions: None. Medications: None. OBJECTIVE: Ht: 61-3/4. Wt: 114 lb. BP: 120/80. P: 70 per minute and regular. The breasts were negative for masses. The patient was advised on breast self-exam. Heart: Rhythm is regular. No murmurs were heard. The lungs were clear. Abdomen is soft without organomegaly, masses, or tenderness. Vaginal Exam: A Pap smear was taken initially. She does have some uterine descensus present with a small rectocele. The extremities are intact. The neuro is unremarkable. ASSESSMENT: 1. Essentially normal exam with a uterine descensus. 2. History of hyperlipidemia. PLAN: Will check a hemoglobin, cholesterol fractionation, blood sugar, and TSH. Will do these on a fasting. Should get mammogram scheduled. johan RUNNER Conversion, [facility] - 08/01/1997 12:01 AM CST Progress Notes signed by at 03/27/98 3922 Author: [facility] Conversion Service: (none) Author Type: (none) Filed: 09/26/10 0317 Note Time: 08/01/97 0001 Status: Signed Pairer: [facility] Conversion IMPRESSION: Mild pelvic relaxation, asymptomatic. SUBJECTIVE: This patient is a 42-year-old para 3-0-0-3 with LMP . She is advised to present to our department because of cystocele and possible rectocele noted on exam. She has no symptoms of urinary incontinence. Occasionally notes some pressure at the vaginal introitus area and wonders if she might have hemorrhoids. However, does not have difficulty evacuating stool. States she exercises regularly. Has had 3 vaginal deliveries. No current medications. No allergies. Does not smoke cigarettes. OBJECTIVE: BP: 112/68. H: 61. W: 112 lb. Pelvic exam shows external genitalia to be normal with the exception of hemorrhoid noted in the rectal area at approximately 3:00. There is mild to moderate cystocele and mild rectocele noted with straining. No incontinence noted. ASSESSMENT: Mild pelvic relaxation, essentially asymptomatic. PLAN: Given that the patient is not having any particular symptoms related to cystocele and rectocele, have not recommended any surgical therapy at this time. Nonsurgical options discussed including Kegel exercises which she has done in the past. I referred her to General Surgery Department should she wish to proceed with treatment of hemorrhoids. Return to our department as needed. Patient expresses agreement with plan as outlined. sls SCHEDULED RESOURCE: CRISTINA DAVIDSON MD RUNNER Swati Loja MD - 07/18/1997 12:01 AM CST Progress Notes signed by GUERO Obrien at 08/17/97 1648 Author: GUERO Obrien Service: (none) Author Type: Physician Filed: 09/26/10 0303 Note Time: 07/18/97 0001 Status: Signed Pairer: GUERO Obrien (Physician) IMPRESSION: Possible cystocele and early rectocele. SUBJECTIVE: Patient is a 42-year-old woman who comes in today with concerns that a week ago she did do some heavy lifting while helping her parents move houses and shortly after that noticed a presence of a small lump in the vaginal area. She was able to push the lump further inside but states that towards the end of the day the lump does recur. It is not painful, is associated with a sensation of pressure. She does not have any urinary symptoms. She states that her menses are regular occurring on a monthly frequency. The last one occurred about 2-1/2 weeks ago. She relies on a tubal ligation for contraception. She does suffer with constipation periodically and tends to use Colace on an almost daily basis as a stool softener. She does try to increase the bran in her diet but cannot tolerate the added fiber in the form of Metamucil or Citrucel. She walks daily for exercise and does do abdominal crunches as part of her daily routine. She has lost 30 pounds since by following the [employer] diet. She has had 3 normal vaginal deliveries. Her babies all weighed about 9 pounds and she did have episiotomies by 3 times. She is otherwise quite healthy. She is not on any medications and has no known drug allergies. OBJECTIVE: Pleasant woman, looks well. Abdomen soft and nontender without any masses. Vaginal orifice, a small cystocele was noted after patient coughed a few times. She also had an early rectocele. The uterus itself appeared to be intact, nontender, normal size. Rectal exam, good sphincter tone and rectum. ASSESSMENT: Patient with possible cystocele and early rectocele. I will have her try to avoid straining as much as possible. She has used Kegel exercises in the past because of having some symptoms of stress incontinence a few years ago. That has since gotten better but she is aware of these exercises and she will start doing them several times a day. I will refer her to Dr. Pierson for an opinion regarding this. PLAN: N/A. kjp RUNNER documented in this encounter Plan of Treatment Not on filedocumented as of this encounter Procedures Procedure Name Priority Date/Time Associated Comments Diagnosis SEXUALLY TRANSMITTED Routine 01/17/1998 1:14 PM R esults for this DISEASE PROBE CDT procedure are in the results section. HERPES SIMPLEX RAPID Routine 01/17/1998 1:14 PM R esults for this CDT procedure are i n the results section. WET PREP PARK Routine 01/17/1998 11:[address] [facility] AM CDT procedure ar e in the results section. MM MAMMOGRAM Routine 10/20/1997 1:00 PM Results f or this SCREENING W CAD CDT procedure ar e in the results section. HEMOGLOBIN, BLOOD Routine 08/31/1997 1:19 PM Resu lts for this LINE RUNNER procedure are i n the results section. GLUCOSE Routine 08/23/1997 7:40 AM Results f or this LINE RUNNER procedure are i n the results section. THYROID STIMULATING Routine 08/23/1997 7:40 AM Re sults for this HORMONE LINE RUNNER procedure are i n the results section. LIPID PANEL AND Routine 08/23/1997 7:40 AM Result s for this DIRECT LDL(IF NEEDED) LINE RUNNER proced ure are in the results section. HEMOGLOBIN, BLOOD Routine 08/23/1997 7:40 AM Resu lts for this LINE RUNNER procedure are i n the results section. ANATOMICAL PATH-C Routine 08/17/1997 2:02 PM Resu lts for this LINE RUNNER procedure are i n the results section. URINALYSIS COMPLETE Routine 07/18/1997 8:45 AM Re sults for this LINE RUNNER procedure are i n the results section. documented in this encounter Results (ABNORMAL) Herpes Simplex Rapid (01/17/1998 1:14 PM CDT) [facility] gist Method Time Signature Herpes simplex SEE TEXT HP CONVERSION Culture (A) Comment: Patient: DANIELLE PRATT Culture, Herpes simplex @ ? Collected: ??[id number] ??[id number] Source: ENDOCERV ?Processed: ??[id number] ??[id number] Final Report ------ ?[id number] ??[id number] Herpes simplex type 1 isolated Performed at [facility]ED TO [facility].01-19-98 AO @ = Herpes Culture Performed at ??[facility], [address], ?[place] [address] Specimen (Source) Anatomical Collection Method Collection Time Re ceived Time Location / / Volume Laterality 01/17/1998 1:14 PM CDT Aron Barros MD LAB_1 Performing Organization Address City/[facility]/ZIP Code Phon e Number HP CONVERSION Sexually Transmitted Disease Probe (01/17/1998 1:14 PM CDT) [facility] Method Time Signature Sexually SEE TEXT HP CONVERSION Transmitted Disease Probe Comment: Patient: DANIELLE PRATT Sexually Trans Disease Probe @ ?Collected: ??[id number] ??[id number] Source: ENDOCERV ?Processed: ??[id number] ??[id number] Final Report ------ ?[id number] ??[id number] Negative for Chlamydia trachomatis by DN A probe Negative for Neisseria gonorrhoeae by DN A probe @ = Sexually Trans Disease Probe Perform ed at ??[address] [facility] ?[place] [address] Specimen (Source) Anatomical Collection Method Collection Time Re ceived Time Location / / Volume Laterality 01/17/1998 1:14 PM CDT Aron Barros MD LAB_1 Performing Organization Address City/[facility] Phon e Number HP CONVERSION (ABNORMAL) Wet Prep [facility] (01/17/1998 11:45 AM CDT) [facility] Method Time [facility] Wet [facility] ? No normal HP CONVERSION [facility] Wet Prep Negative No normal HP CONVERSION Trich [facility] Wet Prep WBC Moderate No normal HP CONVERSION [facility] Wet Prep Moderate No normal HP CONVERSION Bacteria [facility] Wet Prep Clue Negative No normal HP CONVERSION Cells [facility] [place] Wet Prep Positive (A) No normal HP CONVERSION Yeast [facility] Wet Prep Negative No normal HP CONVERSION Amine [facility] [place] [facility] Specimen (Source) Anatomical Collection Method Collection Time Re ceived Time Location / / Volume Laterality 01/17/1998 11:45 AM CDT Aron Childress Papo LAB_1 Performing Organization Address City/[facility]/ZIP Code Phon e Number HP CONVERSION MM Mammogram Screening W CAD (10/20/1997 1:00 PM CDT) Anatomical Region Laterality Modality Breast Bilateral Mammography Specimen (Source) Anatomical Location Collection Method / Collectio n Time Received Time / Laterality Volume Impressions 10/20/1997 1:00 PM CDT : ?? NO MAMMOGRAPHIC EVIDENCE OF MALIGNAN CY. FINDINGS: ?? M3 ?? BREAST TISSUE IS MODERATELY DENSE; T HIS SOMEWHAT DECREASES ?? DIAGNOSTIC SENSITIVITY. ??NO SUSPICI OUS MASSES OR CALCIFICATIONS ?? ARE SEEN. TECH-ID : ? 25 TRANS-ID: Narrative 10/20/1997 1:00 PM CDT SEVERITY: 1 CLINICAL DATA: ?ROUTINE Procedure Note Nacho Keyes MD - 08/15/2016 SEVERITY: 1 CLINICAL DATA: ROUTINE IMPRESSION : NO MAMMOGRAPHIC EVIDENCE OF MALIGNANCY. FINDINGS: M3 BREAST TISSUE IS MODERATELY DENSE; THIS SOMEWHAT DECREASES DIAGNOSTIC SENSITIVITY. NO SUSPICIOUS M ASSES OR CALCIFICATIONS ARE SEEN. TECH-ID : 25 TRANS-ID: Trav Proctor RAD ARACELI Hemoglobin, Blood (08/31/1997 1:19 PM LINE RUNNER) P athologist Signature Hemoglobin 12.9 11.8 - 15.5 HP CONVERSION gm/dL Specimen (Source) Anatomical Collection Method Collection Time Re ceived Time Location / / Volume Laterality 08/31/1997 1:19 PM LINE RUNNER Trav Proctor LAB_1 Performing Organization Address [facility]/ZIP Code Phon e Number HP CONVERSION Hemoglobin, Blood (08/23/1997 7:40 AM LINE RUNNER) P athologist Signature Hemoglobin 13.2 11.8 - 15.5 HP CONVERSION gm/dL Specimen (Source) Anatomical Collection Method Collection Time Re ceived Time Location / / Volume Laterality 08/23/1997 7:40 AM LINE RUNNER Trav Proctor LAB_1 Performing Organization Address City/[facility]/ZIP Code Phon e Number HP CONVERSION (ABNORMAL) Lipid Panel and Direct LDL(If Needed) (08/23/1997 7:40 AM LINE RUNNER) Patholo gist Method Time Signature Cholesterol 222 (HH) 125 - 199 HP CONVERSION mg/dL HDL Cholesterol 61 36 - 80 HP CONVERSION mg/dL Cholesterol/HDL 3.6 No normal HP CONVERSION Ratio Screen range Triglycerides 171 0 - 250 HP CONVERSION mg/dL LDL Calculated 127 66 - 129 HP CONVERSION mg/dL Specimen (Source) Anatomical Collection Method Collection Time Re ceived Time Location / / Volume Laterality 08/23/1997 7:40 AM LINE RUNNER Trav Proctor LAB_1 Performing Organization Address [facility] Code Phon e Number HP CONVERSION Thyroid Stimulating Hormone (08/23/1997 7:40 AM LINE RUNNER) athologist Signature Thyroid 1.32 0.20 - HP CONVERSION Stimulating 5.50 Hormone mIU/mL Specimen (Source) Anatomical Collection Method Collection Time Re ceived Time Location / / Volume Laterality 08/23/1997 7:40 AM LINE RUNNER Trav Proctor LAB_1 Performing Organization Address City/[facility]/ZIP Code Phon e Number HP CONVERSION Glucose (08/23/1997 7:40 AM LINE RUNNER) P athologist Signature Lab Glucose 90 60 - 110 HP CONVERSION mg/dL Specimen (Source) Anatomical Collection Method Collection Time Re ceived Time Location / / Volume Laterality 08/23/1997 7:40 AM LINE RUNNER Trav Proctor LAB_1 Performing Organization Address City/[facility]/ZIP Code Phon e Number HP CONVERSION Anatomical Path-C (08/17/1997 2:02 PM LINE RUNNER) P athologist Signature PAP Smear SEE TEXT No normal HP CONVERSION range Comment: Patient: DANIELLE PRATT ? CERVICAL CYTOLOGY REPORT Pathology # ??[id number] ?Date Obtained: ? Date Received: LMP: ?07-28-96 CLINICAL HIST CERVICAL, VAGINAL SMEAR SPECIMEN ADEQUACY: ?? Satisfactory. ENDOCERVICAL CELLS: ??Present. CYTOLOGIC IMPRESSION: Within Normal Limits (Negative). Verified 08/22/97 by: ??SD ? (electronic signature) Specimen (Source) Anatomical Collection Method Collection Time Re ceived Time Location / / Volume Laterality 08/17/1997 2:02 PM LINE RUNNER Trav Proctor LAB_1 Performing Organization Address City/[facility] Phon e Number HP CONVERSION (ABNORMAL) Urinalysis Complete (07/18/1997 8:45 AM LINE RUNNER) [facility] gist Method Time Signature Glucose, Negative Neg-Trac HP CONVERSION Qualitative U Protein Urine Negative Neg-Trac HP CONVERSION Ketones Trace (A) Negative HP CONVERSION U BILI Negative Negative HP CONVERSION U Specific 1.020 1.005 - 25 HP CONVERSION [place] Blood Urine Negative Negative HP CONVERSION pH Urine 6.5 4.5 - 7.5 HP CONVERSION Urobilinogen Negative 0.2 - 1.0 HP CONVERSION Urine Nitrite Urine Negative Negative HP CONVERSION Leukocyte Negative Negative HP CONVERSION Esterase Urine White Blood 0-2 0 - 3 /HPF HP CONVERSION Cells Urine Red Blood Cells 0-2 0 - 3 /HPF HP CONVERSION Urine Bacteria Urine Rare (A) None HP CONVERSION Epithelial Cells Moderate Few /HPF HP CONVERSION Specimen (Source) Anatomical Collection Method Collection Time Re ceived Time Location / / Volume Laterality 07/18/1997 8:45 AM LINE RUNNER Swati Loja MD LAB_1 Performing Organization Address [facility] Phon e Number HP CONVERSION documented in this encounter Visit Diagnoses Not on filedocumented in this encounter Care Teams Teacher Counselor Relationship Specialty Start Date End Date Unassigned, Provider PCP - General 02/23/01 09/20/18 [address] [place] [address] documented as of this encounter
--- OUTSIDE RECORDS SUMMARY | 2022-01-25 13:48 | XMS_ITS | Encounter Summary ---
:1955 Author [facility] Address [address] [place] [address] Care Team Providers Name Role Phone Unassigned, Provider Primary Care Provider Unavailable Encounter Details Date Type Department Care Team Description 03/29/2006 PN Conversion Only [place] [facility] [address] [address] [place] [address] Social History Tobacco Use Types Packs/Day Years Used Date Smoking Tobacco: Never Assessed Sex Assigned at Date Recorded Not on file documented as of this encounter Plan of Treatment Not on filedocumented as of this encounter Visit Diagnoses Not on filedocumented in this encounter Care Teams Sliver Lap Machine Tender Relationship Specialty Start Date End Date Unassigned, Provider PCP - General 02/23/01 09/20/[address] [place] [id number] documented as of this encounter
--- OUTSIDE RECORDS SUMMARY | 2022-01-25 13:48 | XMS_ITS | Encounter Summary ---
:1955 Author Organization [facility] Address [address] [place] [address] Care Team Providers Name Role Phone Unassigned, Provider Primary Care Provider Unavailable Encounter Details Date Type Department Care Team Description 12/02/2008 PN Conversion Only [place] [address] [place] [address] [place] [address] Social History Tobacco Use Types Packs/Day Years Used Date Smoking Tobacco: Never Assessed Sex Assigned at Date Recorded Not on file documented as of this encounter Plan of Treatment Not on filedocumented as of this encounter Procedures Procedure Name Priority Date/Time Associated Comments Diagnosis URINALYSIS Routine 12/02/2008 7:54 PM Results f or this ROUTINE(MICRO IF POS) CDT proced ure are in the results section. URINALYSIS Routine 12/02/2008 7:54 PM Results f or this MICROSCOPIC CDT procedure are i n the results section. COMPLETE BLOOD Routine 12/02/2008 7:54 PM Results for this COUNT-W/DIFF CDT procedure are i n the results section. documented in this encounter Results (ABNORMAL) Complete Blood Count-W/Diff (12/02/2008 7:54 PM CDT) [facility] Method Time Signature White Blood Cell 14.7 (H) 3.8 - 11.0 [facility] N Count K/cmm Red Blood Cell 4.74 3.70 - HP CONVERSION Count 5.20 m/cmm Hemoglobin 14.7 11.8 - HP CONVERSION 15.5 gm/dL Hematocrit 43.1 35.0 - HP CONVERSION 46.0 % Mean Corpuscular 90.9 80.0 - HP CONVERSION Volume 100.0 fl Mean Corpuscular 31.1 27.0 - HP CONVERSION Hemoglobin 34.0 pg Mean Corpuscular 34.2 32.0 - HP CONVERSION Hemoglobin Conc 36.5 gm/dL Jaars RDW 12.5 11.0 - HP CONVERSION 15.0 % Platelet Count 271 140 - 450 HP CONVERSION k/cmm Differential Auto-Dif No normal HP CONVERSION Verify range Neutrophils 11.3 (H) 2.0 - 7.5 HP CONVERSION Absolute Count K/cmm Neutrophil 77.8 (H) 50.0 - HP CONVERSION 75.0 % Lymphocyte % 14.8 (L) 20.0 - HP CONVERSION 40.0 % Monocyte 6.5 5.0 - 14.0 HP CONVERSION % Eosinophil 0.4 0.0 - 6.0 HP CONVERSION % Basophil % 0.5 0.0 - 2.0 HP CONVERSION % Specimen (Source) Anatomical Collection Method Collection Time Re ceived Time Location / / Volume Laterality 12/02/2008 7:54 PM CDT Trav Ahmadi MD LAB_1 Performing Organization Address City/[facility]/ZIP Code Phon e Number HP CONVERSION (ABNORMAL) Urinalysis Routine(Micro If Pos) (12/02/2008 7:54 PM CDT) [facility] [employer] Method Time Signature Turbidity Clear No normal HP CONVERSION range pH Urine 6.5 4.5 - 7.5 HP CONVERSION Protein Urine Negative Neg-Trac HP CONVERSION Glucose, Negative Neg-Trac HP CONVERSION Qualitative U Ketones 40 mg/dL Negative HP CONVERSION (A) U BILI Negative Negative HP CONVERSION Blood Urine Trace (A) Negative HP CONVERSION Nitrite Urine Negative Negative HP CONVERSION Leukocyte Negative Negative HP CONVERSION Esterase Urine Urobilinogen Negative 0.2 - 1.0 HP CONVERSION Urine U Specific 1.025 1.005 - 25 HP CONVERSION [place] Specimen (Source) Anatomical Collection Method Collection Time Re ceived Time Location / / Volume Laterality 12/02/2008 7:54 PM CDT Trav Ahmadi MD LAB_1 Performing Organization Address City/State/ZIP Code Phon e Number HP CONVERSION (ABNORMAL) Urinalysis Microscopic (12/02/2008 7:54 PM CDT) [facility] Method Time Signature White Blood 5-9/HPF (A) 0 - 3 HP CONVERSION Cells Urine Red Blood 0-2/HPF 0 - 2 HP CONVERSION Cells Urine Bacteria Urine Few (A) None HP CONVERSION Urine Mucus Occassnl None HP CONVERSION Epithelial Few Few /HPF HP CONVERSION Cells Specimen (Source) Anatomical Collection Method Collection Time Re ceived Time Location / / Volume Laterality 12/02/2008 7:54 PM CDT Trav Ahmadi MD LAB_1 Performing Organization Address City/State/ZIP Code Phon e Number HP CONVERSION documented in this encounter Visit Diagnoses Not on filedocumented in this encounter Care Teams Purification Operator Helper Relationship Specialty Start Date End Date Unassigned, Provider PCP - General 02/23/01 09/20/[address] [place] [id number] documented as of this encounter
--- OUTSIDE RECORDS SUMMARY | 2022-01-25 13:48 | XMS_ITS | Encounter Summary ---
:1955 Author Organization [facility] Address [address] [address] Care Team Providers Name Role Phone Unassigned, Provider Primary Care Provider Unavailable Encounter Details Date Type Department Care Team Description 03/29/2006 Office Visit [facility] [place] [address] [place] [address] [place] [address] Social History Tobacco Use Types Packs/Day Years Used Date Smoking Tobacco: Never Assessed Sex Assigned at Date Recorded Not on file documented as of this encounter Last Filed Vital Signs Vital Sign Reading Time Taken Comments Blood Pressure 115/64 03/29/2006 2:21 PM CDT Pulse 94 03/29/2006 2:21 PM CDT Temperature 37.1 ??C (98.8 ??F) 03/29/2006 2:21 PM CDT C: 37 .1 C Respiratory Rate 16 03/29/2006 2:21 PM CDT Oxygen Saturation - - Inhaled Oxygen Concentration - - Weight - - Height - - Body Mass Index - - documented in this encounter Progress Notes Vargas Ambriz MD - 03/29/2006 12:01 AM CDT Progress Notes signed by Vargas Ambriz MD at 03/29/06 [id number] Author: Vargas Ambriz MD Service: (none) Author Type: (none) Filed: 09/28/10 1452 Note Time: 03/29/06 0001 Status: Signed Rotary Cutter Feeder: Vargas Ambriz MD (Physician) SUBJECTIVE: 50-year-old female who has a slightly bruised slightly tender area on the A. palmar surface of the left index finger overlying the MCP joint. She denies any specific trauma. She notes several mild bruises scattered on her upper extremities that seemed to follow having a deep muscle massage several days ago. She does have some bleeding of her gums when she brushes her teeth. She denies any blood in her urine or stool. Patient expressed some concern about a bleeding disorder. Adverse Drug Reactions: None. Medications: None. Reviewed. See Medication List in [employer]. OBJECTIVE: Vital Signs : Reviewed; See Flowsheet Charting in [employer]. She is a tiny broken and blood vessel at the base of the left index finger in the area described above. There is full range of motion and good strength. She has a couple of 4-cm very faint, fading contusions on the forearms. She does have some evidence of gingival disease (states that she lost last saw a dental hygienist 9 months ago.) ASSESSMENT: Broken superficial cutaneous blood vessel of the left index finger. PLAN: Discussed with patient that I think it is unlikely she has a bleeding disorder, but the only way to confirm that would be several blood tests (CBC, platelets,bleeding time). She declined any blood tests at this time, so I recommended she follow up with her primary care physician if she is showing increasing amounts of bruising. She should avoid over exertion with her hand, such as heavy grasping, and that minor/common problem should resolve spontaneously. The patient was discharged ambulatory and in stable condition. *SH~DNS~SOAP documented in this encounter Plan of Treatment Not on filedocumented as of this encounter Visit Diagnoses Not on filedocumented in this encounter Care Teams Olap Developer Relationship Specialty Start Date End Date Unassigned, Provider PCP - General 02/23/01 09/20/[address] [place] [id number] documented as of this encounter
== END 2022-01-25 13:41 | disposition home or self-care (01) ==
LOC: MAMMO 13:42
PROVIDERS: PCP Internal Medicine; Visit Provider Internal Medicine
DX: Z12.31 Encounter for screening mammogram for malignant neoplasm of breast (principal)
CPT/HCPCS: 77063; 77067

== ENCOUNTER 2022-05-14 07:53 | Emergency (ER) | payer BC, SELFPAY ==
[2022-05-14 07:57] VITALS: BP 176/105; PULSE 96; RESP 18; TEMP 36.8; O2SAT 99; BMI 22.7
--- NOTE | 2022-05-14 08:26 | ED_ITS ---
HPI - General Adult General Time Seen by Provider: 08:27 Date Seen: 05/14/22 Chief complaint: High Blood Pressure Stated complaint: High BP Time Seen by Provider: 05/14/22 08:26 Source: patient and RN notes reviewed Mode of arrival: ambulatory Limitations: no limitations History of Present Illness HPI narrative: This 66-year-old female is coming in with elevated blood pressure last night, some chest discomfort in the left side of her chest that is been there for about 2 weeks. Last night she started feeling shaky, ventrally checked her blood pressure at home and it was 180/120. She has maybe felt some shortness of breath, some palpitations. She has noticed her left lip will twitch occasionally but that has been going on for year. There was no stroke symptoms throughout any of this. She has not noted any edema. She notes that her blood pressures been in the 160 systolic her last couple office visits. She is not on any medicine for hypertension. In her family history her dad had hypertension, diabetes and had a three-vessel CABG in his 50s per her report. She herself does not smoke, does not drink. She mostly notices this chest discomfort when she is resting. She states it has woke her up. She does not notice it increasing with exertion or activity, actually does not really feel it when she gets busy. Related Data Home Medications Medication Instructions Recorded Confirmed aspirin 81 mg tablet,delayed 81 mg PO DAILY 12/20/21 05/14/22 release cholecalciferol (vitamin D3) 50 2,000 unit PO DAILY 12/20/21 05/14/22 mcg (2,000 unit) capsule phenylephrine HCl 1 % nasal spray 1 spray intranasal Q8H PRN 12/20/21 12/20/21 ([address]) simvastatin 10 mg tablet 10 mg PO .5XWEEKLY 12/20/21 05/14/22 Previous Rx's Medication Instructions Recorded estradiol 0.025 mg/24 hr 0.025 patch transdermal .2X/Week 12/20/21 semiweekly transdermal patch #12 patches estradiol 10 mcg vaginal tablet 10 mcg vaginal 3XW #36 tabs 12/31/21 lisinopril 10 mg tablet 10 mg PO DAILY #30 tabs 05/14/22 Allergies Allergy/AdvReac Type Severity Reaction Status Date / Time No Known Allergies Allergy Unknown Verified 12/20/21 14:24 Review of Systems Status of ROS: Reports: 10 or more systems reviewed and unremarkable except as noted in History and below PFSH PFSH Surgical History History of appendectomy (2008) History of hysterectomy (1997) History of partial thyroidectomy (2009) History of repair of left rotator cuff (2003) Family History Father Coronary artery disease Diabetes High blood pressure Hyperlipidemia Paternal Grandfather Coronary artery disease Paternal Grandmother Coronary artery disease Mother Osteoporosis Social History Smoking Status: Never smoker How often do you have a drink containing alcohol: never AUDIT-C Alcohol total score: 0 Non-prescribed substance use: denies use service: No Exam Const: Vital Signs, click to edit/add: Vital Signs - 24 hr 05/14/22 07:57 Temperature 98.3 F Pulse Rate [Right Pulse Oximeter] 96 Respiratory Rate 18 Blood Pressure [Ri ght Upper Arm] 176/105 H Pulse Oximetry 99 Oxygen Delivery Me thod Room Air Documenting provider has reviewed patient's vital signs: yes Common normals: no apparent distress, average body habitus, oriented x3, no limitations, healthy appearing, alert and well nourished General appearance: cooperative, comfortable, well kempt and well developed HENMT: Common normals: normocephalic, head/scalp atraumatic, hearing grossly normal bilaterally, external ears normal, external nose normal, nasal mucous membranes and turbinates normal, moist oral mucous membranes, oropharynx normal, dentition normal and gingiva normal Head and scalp: normocephalic and atraumatic Nose: external nose normal and nasal mucous membranes and turbinates normal External ear: external ears normal Eye: Common normals: PERRL, EOMs intact bilaterally, conjunctivae normal and no scleral icterus Conjunctiva: conjunctiva(e) normal Pupil: PERRL Neck & C-Spine: Common normals: full ROM, no lymphadenopathy, supple, no meningeal signs, no JVD and thyroid normal Thyroid: thyroid normal Chest: Common normals: inspection of chest normal Other: Has some general mild reproducible left chest wall tenderness without any palpable changes such as crepitus or masses. Resp: Common normals: normal respiratory effort, no retractions, no use of accessory muscles and clear to auscultation bilaterally Auscultation: clear to auscultation bilaterally Cardio: Common normals: no JVD, regular rate, regular rhythm, S1 normal heart sound, S2 normal heart sound, no gallops, no clicks, no murmurs, no rub and peripheral pulses 2+ throughout Rate: regular rate Rhythm: regular rhythm Heart sounds: S1 normal and S2 normal Peripheral pulses: pulses 2+ throughout GI: Common normals: Normal to inspection, nondistended, normoactive bowel sounds present, soft to palpation, non-tender, no hepatosplenomegaly and no masses Palpation: soft and no hepatosplenomegaly Extremity: Common normals: no calf tenderness and no pedal edema Neuro: Common normals: oriented x3, CN's II-XII intact bilaterally, moves all extremities, no focal motor deficits, no sensory deficits noted and gait normal Sensorium/orientation: alert Meningeal signs: no meningeal signs Speech: speech normal Psych: Appearance: well kempt Course Course Hospital Course: Was able to review with patient that her EKG is showing a short MA which is not concerning in context of hypertension but may require more evaluation p articularly if she is noting some palpitations. Consideration for cardiac monitoring outpatient through her primary care provider can be discussed. We will have her on cardiac monitoring here today, pulse oximetry. Will get point of care troponin, labs that we would do for hypertension. Will also get a D- dimer. Patient is on postmenopausal hormone therapy. She certainly has elevated blood pressure and this would be recommended to be started for treatment. We will do some basic workup here today, monitor her while here. Have discussed DENILSON-inhibitor with her. If her kidney function is normal, would consider initiating an DENILSON-inhibitor. I am doubtful that just diuretic is going to be enough. That could be added in secondarily. Reviewed with her that patients need to be monitored on Denilson inhibitors to ensure that they do not become hyperkalemia co or that the medication actually worsens kidney function. Reviewed that it is beneficial in the vast majority of patients but there are a small subset of patients that actually have problems with hyperkalemia and worsening kidney function on these medicines. Thus, it is imperative to follow up in a timely fashion once these medicines are started. Once I have seen her labs, will follow up back with her. Reevaluation(s) Reevaluation #1: Reviewed with patient that the workup is reassuring, no evidence of any end- organ disease. I do feel she should start treating for hypertension. We were able to schedule her for follow-up with Dr. Boland in clinic. She has not left urinalysis but thing she could do so at this time. I do not believe we need to hold her here for the result, we will collect the sample and contact her if there is anything concerning. Ultimately, we are just looking for evidence of proteinuria that might need further evaluation in the setting of hypertension. Time: 10:31 Vital Signs Vital signs: Initial Vital Signs Temperature 98.3 F 05/14/22 07:57 Temperature Source Temporal Artery Scan 05/14/22 07:57 Pulse Rate 96 05/14/22 07:57 Respiratory Rate 18 05/14/22 07:57 Blood Pressure 176/105 H 05/14/22 07:57 Blood Pressure Mean 128 05/14/22 07:57 Blood Pressure Position Sitting 05/14/22 07:57 Pulse Oximetry 99 05/14/22 07:57 Oxygen Delivery Method 05/14/22 07:57 Vital Signs Temperature 98.3 F 05/14/22 07:57 Pulse Rate 96 05/14/22 07:57 Respiratory Rate 18 05/14/22 07:57 Blood Pressure 176/105 H 05/14/22 07:57 Pulse Oximetry 99 05/14/22 07:57 Oxygen Delivery Method 05/14/22 07:57 Temperature 98.3 F 05/14/22 07:57 Pulse Rate 96 05/14/22 07:57 Respiratory Rate 18 05/14/22 07:57 Blood Pressure 176/105 H 05/14/22 07:57 Pulse Oximetry 99 05/14/22 07:57 Oxygen Delivery Method 05/14/22 07:57 Medical Decision Making Lab Data Lab results reviewed: Yes I reviewed the patient's lab results Labs: Lab Results 05/14/22 05/14/22 05/14/22 Range/Units 08:20 08:20 08:20 WBC 5.99 (4.50-11.00) K/uL RBC 4.85 (4.00-5.20) m/uL Hgb 15.0 (12.0-16.0) gm/dL Hct 45.6 (33.0-51.0) % MCV 94 (80-100) fL MCH 31 (26-34) pg MCHC 33 (32-36) gm/dL RDW Coeff of Greta 12.0 (11.5-15.5) % Plt Count 275 (140-440) K/uL Neut % (Auto) 64.8 (42.0-72.0) % Lymph % (Auto) 27.9 (20-44) % Dane % (Auto) 6.3 (0.0-11.0) % Eos % (Auto) 0.3 (0.0-7.0) % Baso % (Auto) 0.5 (0.0-3.0) % Neut # (Auto) 3.88 (1.7-7.0) K/uL Lymph # (Auto) 1.67 (0.90-2.90) K/uL Dane # (Auto) 0.40 (0.00-0.90) K/UL Eos # (Auto) 0.02 (0.00-0.50) K/uL Baso # (Auto) 0.03 (0.00-0.30) K/uL Abs Immat Gran (auto) 0.01 (0.00-0.30) K/uL Imm/Tot Granulo (auto) 0.2 % D-Dimer Quant (PE/DVT) < 0.27 (0.00-0.50) ug/ml Sodium 142 (135-149) mmol/L Potassium 3.8 (3.6-5.1) mmol/L Chloride 106 (96-114) mmol/L Carbon Dioxide 28 (20-32) mmol/L BUN 10 (7-30) mg/dL Creatinine 0.6 (0.5-1.5) mg/dL Estimated Creat Clear 41.76 Estimated GFR 99 ml/min Glucose 109 (60-115) mg/dL Calcium 9.2 (8.4-10.6) mg/dL Total Bilirubin 0.7 (0.1-1.5) mg/dL AST 27 (12-35) U/L ALT 24 (4-35) U/L Alkaline Phosphatase 73 (40-150) U/L NT-Pro-B Natriuret Pep 89 (0-125) PG/mL Total Protein 7.9 (6.0-8.3) g/dL Albumin 4.8 (3.3-5.0) g/dL POC Troponin I (0.01-0.04) ng/ml 05/14/22 Range/Units 08:20 WBC (4.50-11.00) K/uL RBC (4.00-5.20) m/uL Hgb (12.0-16.0) gm/dL Hct (33.0-51.0) % MCV (80-100) fL MCH (26-34) pg MCHC (32-36) gm/dL RDW Coeff of Greta (11.5-15.5) % Plt Count (140-440) K/uL Neut % (Auto) (42.0-72.0) % Lymph % (Auto) (20-44) % Dane % (Auto) (0.0-11.0) % Eos % (Auto) (0.0-7.0) % Baso % (Auto) (0.0-3.0) % Neut # (Auto) (1.7-7.0) K/uL Lymph # (Auto) (0.90-2.90) K/uL Dane # (Auto) (0.00-0.90) K/UL Eos # (Auto) (0.00-0.50) K/uL Baso # (Auto) (0.00-0.30) K/uL Abs Immat Gran (auto) (0.00-0.30) K/uL Imm/Tot Granulo (auto) % D-Dimer Quant (PE/DVT) (0.00-0.50) ug/ml Sodium (135-149) mmol/L Potassium (3.6-5.1) mmol/L Chloride (96-114) mmol/L Carbon Dioxide (20-32) mmol/L BUN (7-30) mg/dL Creatinine (0.5-1.5) mg/dL Estimated Creat Clear Estimated GFR ml/min Glucose (60-115) mg/dL Calcium (8.4-10.6) mg/dL Total Bilirubin (0.1-1.5) mg/dL AST (12-35) U/L ALT (4-35) U/L Alkaline Phosphatase (40-150) U/L NT-Pro-B Natriuret Pep (0-125) PG/mL Total Protein (6.0-8.3) g/dL Albumin (3.3-5.0) g/dL POC Troponin I 0.00 L (0.01-0.04) ng/ml Imaging Data Chest x-ray: Attestation: I have reviewed the pertinent imaging results. My impression: No acute cardio pulmonary pathology on my preliminary read. Radiologist's impression: Patient: CAITY ROBB Facility:?[facility] Patient ID:?[id number] Site Patient ID:?[id number]. Site :?[id number] Study:?XRay Chest 1 VIEW PORTABLE-05/14/2022 8:54:10 AM Ordering Physician:Alpesh Martinez Final Report: INDICATION: Chest pain. Hypertension. TECHNIQUE: Chest 1 views. COMPARISON: None. FINDINGS: Cardiovasculature and mediastinum: Heart size and vasculature are normal in caliber and appearance. Lungs and pleural spaces: Lungs are clear. No sign of infiltrate or mass. No sign of pleural effusion. No pneumothorax. Bones and soft tissues: No significant findings. IMPRESSION: No acute or significant findings. Dictated by Niko Mendoza MD @ 05/14/2022 8:57:43 AM (Electronic Signature) ECG Data Attestation: I personally reviewed and interpreted this ECG as follows: (Sinus rhythm, 79 beats per minute. Computer calculated short MA of 102 milliseconds. No ischemic change noted.) Prior ECG tracings: not available for review Critical Care Time Critical Care Time Critical Care Time: No Discharge Plan Discharge Clinical Impression: Shortened MA interval, Hypertension Condition: Stable Instructions: Heart Healthy Diet (ED), DASH Eating Plan (ED), Hypertension (ED) Additional Instructions: Follow up appointment is scheduled with Dr. Lara on 05/21 with an 8:15am arrival time. If you have any questions or need to reschedule, please call [phone]. [facility] [address] [place] [address] Need to follow a low-sodium/heart healthy diet, review handouts. We are going to initiate lisinopril for blood pressure control, start today as soon as you get the medicine. Continue with baby aspirin daily. Need to keep the clinic appointment as scheduled, will need followup basic metabolic panel, recheck blood pressure. With the short MA interval on her EKG, would recommend that Holter monitoring or ZIO patch be done to rule out any underlying arrhythmias, consider having an echo done as well. Would recommend having stress testing scheduled after outpatient cardiac monitoring and echo results are known. Activity Level: Activity as Tolerated Discharge Diet: Heart Healthy (2 gm sodium, low fat) Prescriptions: New lisinopril 10 mg tablet 10 mg PO DAILY Qty: 30 0RF No Action cholecalciferol (vitamin D3) 50 mcg (2,000 unit) capsule 2,000 unit PO DAILY aspirin 81 mg tablet,delayed release (DR/EC) 81 mg PO DAILY [address] 1 % spray,non-aerosol 1 spray intranasal Q8H PRN simvastatin 10 mg tablet 10 mg PO .5XWEEKLY estradiol 0.025 mg/24 hr patch semiweekly 0.025 patch transdermal .2X/Week Qty: 12 4RF estradiol 10 mcg tablet 10 mcg vaginal 3XW Qty: 36 0RF Follow Up/Referrals: Mariaelena Boland MD [Primary Care Provider] - Stand Alone Forms: [employer] Info Instructions
[2022-05-14 08:30] VITALS: BP 166/102; PULSE 80; RESP 14; O2SAT 99
--- NOTE | 2022-05-14 08:37 | CRLHL7_ITS ---
For Patients: As a result of the Century Cures Act, medical imaging exams and procedure reports are released immediately into your electronic medical record. You may view this report before your referring provider. If you have questions, please contact your health care provider. INDICATION: Chest pain. Hypertension. TECHNIQUE: Chest 1 views. COMPARISON: None. FINDINGS: Cardiovasculature and mediastinum: Heart size and vasculature are normal in caliber and appearance. Lungs and pleural spaces: Lungs are clear. No sign of infiltrate or mass. No sign of pleural effusion. No pneumothorax. Bones and soft tissues: No significant findings. IMPRESSION: No acute or significant findings. Dictated by Niko Mendoza MD @ 05/14/2022 8:57:43 AM (Electronically Signed)
--- OUTSIDE RECORDS SUMMARY | 2022-05-14 08:44 | XMS_ITS | Encounter Summary ---
:1955 Author Organization [facility] Address [address] [place] [address] Care Team Providers Name Role Phone Mariaelena Boland Primary Care Provider Reason for Referral Diagnostic Imaging CT Scan (Routine) - Closed Specialty Diagnoses / Procedures Referred By Contact Refer red To Contact Diagnoses Abdominal lump Mariaelena Boland Procedures CT Abdomen Pelvis w Contrast [facility] [address] [place] [address] Referral ID Status Reason Start Date Expiration Date Visits Requ ested Visits Authorized [id number] Closed 10/29/2021 10/29/2022 1 1 Reason for Visit Diagnostic Imaging CT Scan (Routine) - Closed Specialty Diagnoses / Procedures Referred By Contact Refer red To Contact Diagnoses Abdominal lump Mariaelena Boland Procedures CT Abdomen Pelvis w Contrast [facility] [address] [place] [address] Referral ID Status Reason Start Date Expiration Date Visits Requ ested Visits Authorized [id number] Closed 10/29/2021 10/29/2022 1 1 Encounter Details Date Type Department Care Team Description 11/03/2021 Hospital Encounter M [facility] Carolyn Afua Boland Abdominal lump [facility] [address] [place] [address] [phone] Social History Tobacco Use Types Packs/Day Years Used Date Smoking Tobacco: Never Smokeless Tobacco: Never Alcohol Use Standard Drinks/Week Comments Yes 0 (1 standard drink = 0.6 oz pure alcoho l) socially/rare Sex Assigned at Date Recorded Not on [...] 12 08/02/2010 (MULTIVITAMIN) per tablet mouth daily. Gall[place]-3 Fatty Acids 1200 Take 1 capsule by 180 capsule 12 MG capsule mouth daily. [id number] Nature's Bounty 0 07/10/2010 Calcium Plus D [...] CT ABDOMEN AND PELVIS WITH CONTRAST LOCATION: [facility] DATE/TIME: 11/03/2021, 8:28 AM INDICATION: Abdominal lump. [...] ABDOMEN AND PELVIS WITH CONTRAS T LOCATION: [facility] DATE/TIME: 11/03/2021, 8:28 AM INDICATION: Abdominal lump. [...] stoo l suggestive of constipation. Mariaelena Boland [facility] ORDERABLES documented in this encounter Visit [...] dose documented in this encounter Care Teams Slip Cover Sewer Relationship Specialty Start Date End Date Mariaelena Boland PCP - General Internal Medicine 02/16/18 [facility] [address] [place] [address] documented as of this encounter
--- OUTSIDE RECORDS SUMMARY | 2022-05-14 08:44 | XMS_ITS | Encounter Summary ---
:1955 Author Organization [facility] Address [address] [place] [address] Care Team Providers Name Role Phone Eldon Conway MD Primary Care Provider Reason for Visit Reason Onset Date Comments Muscle Pain 08/15/2010 [facility] hand pain Encounter Details Date Type Department Care Team Description 08/15/2010 Telephone [facility] Juancarlos Goins n ([facility] [place] MD Michelle hand pain) [id number] [place], [place] [employer] [phone] [phone] [address] [place] [address] (Wo rk) Social History Tobacco Use Types Packs/Day Years Used Date Smoking Tobacco: Never Smokeless Tobacco: Never Alcohol Use Standard Drinks/Week Comments Yes 0 (1 standard drink = 0.6 oz pure alcoho l) socially/rare Sex Assigned at Date Recorded Not on file documented as of this encounter Miscellaneous Notes Telephone Encounter - Rhea Benites - 08/15/2010 2:50 PM CST Left message on voicemail with below juan Benites RN [facility] Telephone Encounter - Michelle Goins - 08/15/2010 10:47 AM CST Please inform pt : simvastatin usually causes muscle aches, not joint pains. Pt can take OTC Co-Enzyme Q 20 -30 mg , which helps with muscle aches . If symptoms still persist in 2-3 weeks, will check labs CK, Myoglobin labs Betina Goins M.D [facility] Telephone Encounter - Rhea Benites - 08/15/2010 9:45 AM CST Pt calls: [phone] (home) Has noticed increased right hand joint [...] handled by Nurse Triage with [facility]. Melinda Benites RN [facility] documented in this encounter Plan of Treatment Not on filedocumented as of this encounter Visit Diagnoses Not on filedocumented in this encounter Care Teams Lead Custodian Relationship Specialty Start Date End Date Eldon Conway MD PCP - General 07/24/01 02/15/18 [address] [place] [address] documented as of this encounter
--- OUTSIDE RECORDS SUMMARY | 2022-05-14 08:44 | XMS_ITS | Encounter Summary ---
:1955 Author Organization [facility] Address [address] [place] [address] Care Team Providers Name Role Phone Eldon Conway MD Primary Care Provider Reason for Visit Reason Comments Edema bilateral hand swelling and finger joint pain x 1 month, burning sensation in right palm, trigger finger right hand, 4th digit with shooting pain, and dropping things x 3 months Encounter Details Date Type Department Care Team Description 09/04/2010 Office Visit [facility] [place], Stiffness of joint, hand; Clinic [place] MD Michelle Trigger finger [address] [place], [place] [phone] [phone] [place] [address] (Wo rk) Social History Tobacco Use Types [...] area of rt hand palm. Normal hand waste disposal leakage tester. Normal strength. SKIN: Normal exam NEURO: Normal exam With Stanley filament. Normal strength ASSESSMENT/PLAN : 719.54F Stiffness [...] Time Signature [place] Screen by <1.0 <1.0 [facility] EIA Interpretation: ??Negative [facility] Specimen Anatomical Collection Method Collection Time Receive d Time (Source) Location / / Volume Laterality Blood specimen 09/04/2010 2:24 PM 011 2:29 (specimen) CDT PM CDT Michelle Goins MD LAB - BLOOD ORDERABLES Performing Organization Address City/[facility]/ZIP Code Phon e Number [facility] [address] LABS Rheumatoid factor (09/04/2010 2:24 PM CDT) athologist Signature Rheumatoid 10 0 - 14 [facility] Factor IU/mL CAMPUS LABS Specimen Anatomical Collection Method Collection Time Receive d Time (Source) Location / / Volume Laterality Blood specimen 09/04/2010 2:24 PM 011 2:29 (specimen) CDT PM CDT Michelle Goins MD LAB - BLOOD ORDERABLES Performing Organization Address City/State/ZIP Code Phon e Number [facility] [address] LABS Erythrocyte sedimentation rate auto (09/04/2010 2:24 PM CDT) athologist Signature Sed Rate 10 0 - 30 mm/h [facility] Specimen Anatomical Collection Method Collection Time Receive d Time (Source) Location / / Volume Laterality Blood specimen 09/04/2010 2:24 PM 011 2:29 (specimen) CDT PM CDT Michelle Goins MD LAB - BLOOD ORDERABLES Performing Organization Address City/[facility]/ZIP Code Phon e Number [address] [address] [facility] documented in this encounter Visit Diagnoses Diagnosis Stiffness of joint, hand Stiffness of joint, not elsewhere classi fied, hand Trigger finger Trigger finger (acquired) documented in this encounter Care Teams Screw Machine Tender Relationship Specialty Start Date End Date Eldon Conway MD PCP - General 2/15/02 9/9/18 [id number] [place] [address] documented as of this encounter
--- OUTSIDE RECORDS SUMMARY | 2022-05-14 08:44 | XMS_ITS | Encounter Summary ---
:1955 Author Organization [place] Address [address] [place] [address] Care Team Providers Name Role Phone Eldon Conway MD Primary Care Provider Reason for Referral Specialty Diagnoses / Procedures Referred By Contact Refer red To Contact Jim Goins MD [facility] [address] [place] [address] Fax: Referral ID Status Reason Start Date Expiration Date Visits Requ ested Visits Authorized Reason for Visit Reason Comments Recheck Medication Cholesterol meds - FASTING Sinus Problem sinus drainage, facial/sinus pain Encounter Details Date Type Department Care Team Description 10/22/2010 Office Visit [facility] Erika Goins, counseling/discussion (Primary Dx); Clinic [place] MD Michelle Hyperlipidemia LDL goal <160; [address] [facility] Acute maxillary sinusitis; [place], [place] PARTN[place] Seasonal allergic rhinitis [phone] [phone] [place] [address] (Wo [...] encounter Results AST (10/22/2010 9:10 AM CDT) P athologist Signature AST 39 0 - 45 U/L [facility] Specimen Anatomical Collection Method Collection Time Receive d Time (Source) Location / / Volume Laterality Blood specimen 10/22/2010 9:10 AM 011 9:12 (specimen) CDT AM CDT Michelle Goins MD LAB - BLOOD ORDERABLES Performing Organization Address [facility] e Number [facility] [address] [place] [address] [phone] [facility] ALT (10/22/2010 9:10 AM CDT) athologist Signature ALT 45 0 - 50 U/L [facility] Specimen Anatomical Collection Method Collection Time Receive d Time (Source) Location / / Volume Laterality Blood specimen 10/22/2010 9:10 AM 011 9:12 (specimen) CDT AM CDT Michelle Goins MD LAB - BLOOD ORDERABLES Performing Organization Address [facility] [address] [place] [address] [phone] [facility] (ABNORMAL) Lipid panel reflex to direct LDL (10/22/2010 9:10 AM CDT) athologist Signature Cholesterol 253 (H) 0 - 200 [facility] mg/dL CLINIC LAB Comment: LDL Cholesterol is the primary guide to therapy. The NCEP recommends further evaluation of: patients with cholesterol greater than 200 mg/dL if additional risk facto rs are present, cholesterol greater than 240 mg/dL, triglycerides greater than 1 50 mg/dL, or HDL less than 40 mg/dL. Triglycerides 120 0 - 150 mg/dL [facility] HDL Cholesterol 72 50 - 110 mg/dL [facility] LDL Cholesterol Calculated 157 (H) 0 - 129 mg/dL [facility] Comment: LDL Cholesterol is the primary guide to therapy: LDL-cholesterol goal in high risk patients is <100 mg/dL and in very high risk patients is <70 mg/dL. VLDL-Cholesterol 24 0 - 30 mg/dL [facility] Cholesterol/HDL Ratio 3.5 0.0 - 5.0 [facility] Specimen Anatomical Collection Method Collection Time Receive d Time (Source) Location / / Volume Laterality Blood specimen 10/22/2010 9:10 AM 011 9:12 (specimen) CDT AM CDT Michelle Goins MD LAB - BLOOD ORDERABLES Performing Organization Address City/State/ZIP Code Phon e Number [facility] [address] [place] [address] [facility] documented in this encounter Visit Diagnoses Diagnosis Advanced directives, counseling/discussi on - Primary Other specified counseling Hyperlipidemia LDL goal <160 Other and unspecified hyperlipidemia Acute maxillary sinusitis Seasonal allergic rhinitis Allergic rhinitis, cause unspecified documented in this encounter Care Teams Lab Tester Relationship Specialty Start Date End Date Eldon Conway MD PCP - General 07/24/01 02/15/18 [address] [place] [address] documented as of this encounter
--- OUTSIDE RECORDS SUMMARY | 2022-05-14 08:44 | XMS_ITS | Encounter Summary ---
:1955 Author Organization [place] Address [address] [place] [address] Care Team Providers Name Role Phone Eldon Conway MD Primary Care Provider Reason for Referral Referral not Required - Closed Specialty Diagnoses / Procedures Referred By Contact Refer red To Contact Diagnoses Urine, incontinence, stress female Michelle Goins MD [facility] BLADDER CONTROL [address] [place] [address] [place] [address] Fax: Phone: Fax: Referral ID Status Reason Start Date Expiration Date Visits Requ ested Visits Authorized [id number] Closed 08/02/2010 08/02/2010 1 1 RER Reason for Visit Reason Comments Physical with pap; last pap 04/14/08 - nil; PT had partial hysterectomy after 1991 because of prolapsed uterus; PT IS FASTING. Encounter Details Date Type Department Care Team Description 08/02/2010 Office Visit [facility] Briseida, Screening for osteoporosis; Clinic Cathy Martinez MD Routine gynecological examination; [address] [place] [address] Routine physical examination ; [place], [place] [employer] Urine, incontinence, stress female; [phone] [address] Hyperlipidemia LDL goal <[address] [place] [address] (Wo rk) Social History Tobacco Use Types Packs/Day Years Used Date Smoking Tobacco: Never Smokeless Tobacco: Never Alcohol Use Standard Drinks/Week Comments Yes 0 (1 standard drink = 0.6 oz pure alcoho l) socially/rare Sex Assigned at Date Recorded Not on file documented as of this encounter Last Filed Vital Signs Vital Sign Reading Time Taken Comments Blood Pressure 102/64 08/02/2010 9:38 AM SPEARER Pulse 76 08/02/2010 9:38 AM SPEARER Temperature 36.6 ??C (97.8 ??F) 08/02/2010 9:38 AM SPEARER Respiratory Rate 12 08/02/2010 9:38 AM SPEARER Oxygen Saturation 96% 08/02/2010 9:38 AM SPEARER Inhaled Oxygen Concentration - - Weight 61.7 kg (136 lb) 08/02/2010 9:38 AM SPEARER Height 156.8 cm (5' 1.75) 08/02/2010 9:38 AM SPEARER Body Mass Index 25.08 08/02/2010 9:38 AM SPEARER documented in this encounter Progress Maliha Baugh - 08/02/2010 9:42 AM CST CC: Danielle [...] uterus All Histories reviewed and updated in [facility]. ROS: C: NEGATIVE for fever, chills, change in weight I: NEGATIVE for worrisome rashes, moles or lesions E: NEGATIVE for vision changes or irritation ENT: NEGATIVE for ear, mouth and throat problems, positive for partial thyroidectomy for thyroid nodule in 03/2010 , sees complex manager Dr Rosario, not on supplements. R: NEGATIVE [...] interested to exercise more now with diet. RER documented in this encounter Nursing Notes 08/02/2010 9:15 AM CST >> MALIHA George Aug 02, 2010 9:42 AM Patient presents [...] Name Type Priority Associated Diagnoses Order S [facility] UROLOGY ADULT REFERRAL Referral Routine Urine, incontinenc e, Ordered: 08/02/2010 stress female documented as of this encounter Procedures Procedure Name Priority Date/Time Associated Diagnosis Comme nts PAP IMAGED THIN LAYER Routine 08/02/2010 10:11 Routine gynecol ogical Results for this SCREEN AM SPEARER examination procedure are in Routine physical the results examination section. VITAMIN D DEFICIENCY Routine 08/02/2010 10:11 Routine physical Results for this SCREENING AM SPEARER examination procedure are i n the results section. TSH WITH FREE T4 Routine 08/02/2010 10:11 Routine physical Res ults for this REFLEX AM SPEARER examination procedure are i n the results section. LIPID REFLEX TO Routine 08/02/2010 10:11 Routine physical Resu lts for this DIRECT LDL PANEL AM SPEARER examination procedure are in Hyperlipidemia LDL the resul ts goal <160 section. COMPREHENSIVE Routine 08/02/2010 10:11 Routine physical Result s for this METABOLIC PANEL AM SPEARER examination procedure ar e in the results section. CBC WITH PLATELETS Routine 08/02/2010 10:11 Routine physical R esults for this AM SPEARER examination procedure are i n the results section. documented in this encounter Results Vitamin D deficiency screening (08/02/2010 10:11 AM SPEARER) Component Value Ref Test Analysis Performed At [facility] gist Range Method Time Signature 25 [place] Vit D2 <5 ug/L [facility] 25 [place] Vit D3 45 ug/L [facility] 25 [place] Vit D <50 30 - 75 [facility] total Season, race, dietary intake, and treatm ent affect the concentration of ug/L [place] 62-lvkfsmz-Jlkppob D. Values may decrease during brandy er months and increase CAMPUS LABS during summer months. Values less than 30 ug/L may indicate Vitamin D deficiency. Specimen Anatomical Collection Method Collection Time Receive d Time (Source) Location / / Volume Laterality Blood specimen 08/02/2010 10:11 1 (specimen) AM SPEARER 10:12 AM SPEARER Michelle Goins MD LAB - BLOOD ORDERABLES Performing Organization Address City/State/ZIP Code Phon e Number [address] [address] [facility] PAP imaged thin layer screen (08/02/2010 10:11 AM SPEARER) Component Value Ref Test Analysis Performed At [facility] gist Range Method Time Signature PAP NIL COPATH Copath Report COPATH Patient Name: DANIELLE WALDROP MR#: [id number] Specimen #: [id number] Collected: 08/02/2010 Received: 08/03/2010 Reported: 08/06/2010 14:37 [...] CHEKO Hernandez (ASCP) Processed and screened at [facility] CLINICAL HISTORY: Partial Hysterectomy, Previous normal pap Date of Last Pap: 04/14/08, Papanicolaou Test Limitations: ??Cervical cytology is a scre ening test with limited sensitivity; regular screening is critical for cancer prevention; Pap tests are primarily effective for the diagnosis/prevention of squamous cell carcinoma, not adenoca rcinomas or other cancers. TESTING LAB LOCATION: [address] ??[address] COLLECTION SITE: Client: ??[facility] Location: CRFP (R) Specimen (Source) Anatomical Collection Method Collection Time Re ceived Time Location / / Volume Laterality Cytologic 08/02/2010 10:11 08/03/2010 material AM SPEARER 10:53 AM SPEARER (specimen) Michelle Goins MD LAB - OPTIME CLINICAL SPECIM EN Performing Organization Address City/[facility]/ZIP Code Phon e Number COPATH CBC with platelets (08/02/2010 10:11 AM SPEARER) P athologist Signature WBC 6.5 4.0 - 11.0 [place] 10e9/L [facility] RBC Count 4.47 3.8 - 5.2 [place] 10e12/L [facility] Hemoglobin 14.0 11.7 - [place] 15.7 g/dL [facility] Hematocrit 42.0 35.0 - [place] 47.0 % [facility] MCV 94 78 - 100 [place] fl [facility] MCH 31.3 26.5 - [place] 33.0 pg [facility] MCHC 33.3 31.5 - [place] 36.5 g/dL [facility] RDW 12.6 10.0 - [place] 15.0 % [facility] Platelet Count 257 150 - 450 [place] 10e9/L [facility] Specimen Anatomical Collection Method Collection Time Receive d Time (Source) Location / / Volume Laterality Blood specimen 08/02/2010 10:11 1 (specimen) AM SPEARER 10:12 AM SPEARER Michelle Goins MD LAB - BLOOD ORDERABLES Performing Organization Address [facility]/ZIP Code Phon e Number [facility] [address] [place], [place] [id number] [facility] TSH with free T4 reflex (08/02/2010 10:11 AM SPEARER) P athologist Signature TSH 1.81 0.4 - 5.0 [place] mU/L [facility] Specimen Anatomical Collection Method Collection Time Receive d Time (Source) Location / / Volume Laterality Blood specimen 08/02/2010 10:11 1 (specimen) AM SPEARER 10:12 AM SPEARER Michelle Goins MD LAB - BLOOD ORDERABLES Performing Organization Address City/[facility]/ZIP Code Phon e Number [facility] [address] [place] [address] [place] [facility] Comprehensive metabolic panel (08/02/2010 10:11 AM SPEARER) P athologist Signature Sodium 144 133 - 144 [place] mmol/L CLINIC LAB Potassium 4.6 3.4 - 5.3 [place] mmol/L [facility] Chloride 105 94 - 109 [place] mmol/L [facility] Carbon Dioxide 29 20 - 32 [place] mmol/L [facility] Anion Gap 10 6 - 17 [place] mmol/L [facility] Glucose 93 60 - 99 [place] mg/dL [facility] LAB Urea Nitrogen 24 7 - 30 [place] mg/dL [facility] LAB Creatinine 0.77 0.52 - [place] 1.04 mg/dL CLINIC LAB Comment: New IDMS-traceable calibration beginning 10/08/07 GFR Estimate 78 >60 mL/min/1.7m2 [place] [facility] GFR Estimate If Black >90 >60 mL/min/1.7m2 F [facility] [place] [facility] Calcium 9.6 8.5 - 10.4 mg/dL [place] [facility] Bilirubin Total 0.6 0.2 - 1.3 mg/dL [facility] Albumin 4.6 3.3 - 4.9 g/dL [place] [facility] Comment: Reference range changed on 02/08. Protein Total 7.7 6.8 - 8.8 g/dL [place] [facility] Comment: As of 07, reference range reflects plasma specimen type. Alkaline Phosphatase 71 40 - 150 U/L [facility] [place] ALT 20 0 - 50 U/L [place] [facility] LAB AST 27 0 - 45 U/L [place] [facility] LAB Specimen Anatomical Collection Method Collection Time Receive d Time (Source) Location / / Volume Laterality Blood specimen 08/02/2010 10:11 1 (specimen) AM SPEARER 10:12 AM SPEARER Michelle Goins MD LAB - BLOOD ORDERABLES Performing Organization Address City/State/ZIP Code Phon e Number [facility] [address] [place] [address] [facility] (ABNORMAL) Lipid panel reflex to direct LDL (08/02/2010 10:11 AM SPEARER) athologist Signature Cholesterol 287 (H) 0 - 200 [facility] mg/dL CLINIC LAB Comment: LDL Cholesterol is the primary guide to therapy. The NCEP recommends further evaluation of: patients with cholesterol <200 mg/dL if additional risk factors are present, cholesterol >240 mg/dL, triglycerides >150 mg/dL, or HDL <40 mg/dL. Triglycerides 104 0 - 150 mg/dL [facility] HDL Cholesterol 66 50 - 110 mg/dL [facility] LDL Cholesterol Calculated 200 (H) 0 - 129 mg/dL [facility] Comment: LDL Cholesterol is the primary guide to therapy: LDL-cholesterol goal in high risk patients is <100 mg/dL and in very high risk patients is <70 mg/dL. VLDL-Cholesterol 21 0 - 30 mg/dL [facility] Cholesterol/HDL Ratio 4.4 0.0 - 5.0 [facility] Specimen Anatomical Collection Method Collection Time Receive d Time (Source) Location / / Volume Laterality Blood specimen 08/02/2010 10:11 1 (specimen) AM SPEARER 10:12 AM SPEARER Michelle Goins MD LAB - BLOOD ORDERABLES Performing Organization Address City/State/ZIP Code Phon e Number [facility] [address] [place] [address] [facility] documented in this encounter Visit Diagnoses Diagnosis Screening for osteoporosis Special screening for osteoporosis Routine gynecological examination Routine physical examination Routine general medical examination at a health care facility Urine, incontinence, stress female Female stress incontinence Hyperlipidemia LDL goal <160 Other and unspecified hyperlipidemia documented in this encounter Care Teams Contact Lens Inspector Relationship Specialty Start Date End Date Eldon Conway MD PCP - General 07/24/01 02/15/18 [address] [place] [address] documented as of this encounter
--- OUTSIDE RECORDS SUMMARY | 2022-05-14 08:44 | XMS_ITS | Encounter Summary ---
:1955 Author Organization [place] Address [address] [place] [address] Care Team Providers Name Role Phone Eldon Conway MD Primary Care Provider Reason for Visit Reason Onset Date Comments Results 08/03/2010 Encounter Details Date Type Department Care Team Description 08/03/2010 Telephone [facility] Michelle Quan MD Results [address] [address] [place] [address] [phone] (Wo rk) Social History Tobacco Use Types [...] labs in 3-6 months/ Trixie Bolivar RN S DEVELOPER Telephone Encounter - Michelle Goins - 08/03/2010 1:29 PM CST Please inform pt : pt has high total & bad cholesterol , recommend to start taking simvastatin 20 mg low dose. Recommend to watch fat in diet, exercise 3-4 times a week. Gave RX to [facility] in [place] Pt was working 2 jobs until lately, [...] labs along with letter Betina Goins M.D S DEVELOPER documented in this encounter Plan of Treatment Not on filedocumented as of this encounter Visit Diagnoses Diagnosis Hyperlipidemia LDL goal <160 - Primary Other and unspecified hyperlipidemia documented in this encounter Care Teams Paint Striping Machine Operator Relationship Specialty Start Date End Date Eldon Cownay MD PCP - General 07/24/01 02/15/18 [address] [place] [address] documented as of this encounter
--- OUTSIDE RECORDS SUMMARY | 2022-05-14 08:44 | XMS_ITS | Clinical Summary ---
:1955 Author Organization [facility] [place] [address] Care Team Providers Name Role Phone Mariaelena Boland MD Primary Care Provider Allergies Not on File Medications Not on file Active Problems Not on file Social History Tobacco Use Types Packs/Day Years Used Date Never Assessed Sex Assigned at Date Recorded Not on file Obstetrics History Plan of Treatment Health Maintenance Due Date Last Done Comments COVID-19 vaccine series (#1) 1955 Tdap 1966 Depression screening for age 12+ 1967 BMI (ht and wt on same day) for age 18+ 1973 Hepatitis C screening for age 18-79 1973 Tetanus booster 1975 Colonoscopy through age 75 2000 Lipids for age 45-75 2000 Mammogram for age 45-75 2000 Zoster (shingles) series for age 50+ (1 of 2) 2005 DEXA/DXA scan for age 65+ 2020 Pneumococcal series for age 65+ (1 - PCV) 2020 Influenza for age 65+ 02/07/2022 Results Not on filefrom Last 3 Months Care Teams Traffic Control Flagger Relationship Specialty Start Date End Date Mariaelena Boland MD PCP - General Internal Medicine 02/05/171999 [place] [address]
--- OUTSIDE RECORDS SUMMARY | 2022-05-14 08:44 | XMS_ITS | Encounter Summary ---
:1955 Author Organization [place] Address [address] [place] [address] Care Team Providers Name Role Phone Mariaelena [...] on filedocumented in this encounter Care Teams Cooperative Education Director Relationship Specialty Start Date End Date Mariaelena Boland PCP - General Internal Medicine 02/16/18 [facility] [address] [place] [address] documented as of this encounter
--- OUTSIDE RECORDS SUMMARY | 2022-05-14 08:44 | XMS_ITS | Encounter Summary ---
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 documented as of this encounter Plan of Treatment Not on filedocumented as of this encounter Visit Diagnoses Not on filedocumented in this encounter Care Teams Dairy Equipment Mechanic Relationship Specialty Start Date End Date Mariaelena Boland PCP - General Internal Medicine 02/16/18 [facility] [address] [place] [address] documented as of this encounter
--- OUTSIDE RECORDS SUMMARY | 2022-05-14 08:44 | XMS_ITS | Clinical Summary ---
:1955 Author Organization [place] Address [address] [place] [address] Care Team Providers Name Role Phone Marialeena Boland Primary Care Provider Allergies Active Allergy Reactions Severity Noted Date Comments No Known Drug Allergies 08/02/2010 Seasonal Allergies 01/31/2003 Medications Medication Sig Dispensed Refills Start Date End Date Status [id number] Nature's Bounty 0 07/10/2010 Active Calcium Plus D - 600mg/500IU. ONE Softgel cap daily. Multiple Vitamin Take 1 tablet 100 tablet 12 08/02/2010 Active (MULTIVITAMIN) per by mouth daily. tablet [place]-3 Fatty Acids Take 1 capsule 180 capsule [...] LDL GOAL LESS THAN 130 04/08/2010 08/02/2010 Immunizations Name Administration Dates Next Due COVID-19 Vaccine 18+ (Moderna) 12/29/2020, 12/01/2020 Influenza (High Dose) 3 valent 02/15/2021 vaccine Influenza Vaccine 50-64 or 18-64 03/25/2020, 03/16/2019, 09/2017, w/egg allergy (Flublok) 04/11/2017 Pneumo Conj 13-V (2010&after) 02/13/2021 [...] history exists COLONOSCOPY 09/18/2015 09/17/2005 COLORECTAL CANCER 09/18/2015 SCREENING ADVANCE CARE PLANNING 10/23/2015 10/22/2010, 10/22/2010 LIPID 10/23/2015 10/22/2010, 08/02/2010, 11/24/2009, Additional history exists DEXA 02/02/2018 02/02/2003 FALL RISK ASSESSMENT 2020 MEDICARE ANNUAL WELLNESS 2020 08/02/2010, 04/14/2008, VISIT 07/08/2006, Additional history exists COVID-19 Vaccine (3 - 02/23/2021 12/29/2020, 12/29/2020, Booster for Moderna 12/01/2020, Additional series) history exists PHQ-2 (once per calendar 06/09/2021 year) INFLUENZA VACCINE (#1) 2022 02/15/2021, 02/15/2021, 03/25/2020, Additional history exists DTAP/TDAP/TD IMMUNIZATION 03/26/2022 03/26/2012, 03/26/2012 , (3 - Td or Tdap) 12/23/2001 PAP Discontinued 08/02/2010, 04/14/2008, 07/08/2006, Additional history exists ZOSTER IMMUNIZATION Completed 11/19/2019, 06/14/2019, 02/01/2016, Additional history exists Pneumococcal Vaccine: 65+ Completed 10/25/2021, 02/13/2021 Years IPV IMMUNIZATION Aged Out No longer eligi ble based on patient 's age to complete this topic MENINGITIS IMMUNIZATION Aged Out No longe r eligible based on patient 's age to complete this topic Insurance Payer Benefit Plan Subscriber ID Effective Dates Phone Address Type / Group WORK COMP WC OTHER 2002-Prese [phone] [address] [place] [address] BCBS BCBS OUT OF [id number] 2021-Amy [id number] [address] [address] Indemnity STATE t [address] [place] [address] BenjieDanielle Personal/Family Self 1955 [phone] [address] (Home) [place] [address] 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
--- OUTSIDE RECORDS SUMMARY | 2022-05-14 08:44 | XMS_ITS | Encounter Summary ---
:1955 Author Organization [place] Address [address] [place] [address]. [place] [address] Care Team Providers Name Role Phone Mariaelena Boland Primary Care Provider Reason for Visit Diagnostic Imaging Mammo - Closed Specialty Diagnoses / Procedures Referred By Contact Refer red To Contact Radiology. Diagnoses Visit for screening mammogram [facility] Procedures MA Screening Digital Bilateral [facility] [address], [address] [facility] [address] [place] [address] [place] [address] Phone: Fax: Referral ID Status Reason Start Date Expiration Date Visits Requ ested Visits Authorized [id number] Closed 02/16/2018 02/16/2019 1 1 Encounter Details Date Type Department Care Team Description 02/20/2018 Hospital Encounter [facility] AdrianneFiona (Patient) [facility] Mariaelena [address], [place] [address] [place], [place] [address] [facility] [address] [place], [place] [phone] [address] Social History Tobacco Use Types Packs/Day Years [...] 12 08/02/2010 (MULTIVITAMIN) per tablet mouth daily. [place]-3 Fatty Acids 1200 Take 1 capsule by 180 capsule 12 MG capsule mouth daily. [id number] Nature's Bounty 0 07/10/2010 Calcium Plus D - 600mg/500IU. ONE Softgel cap daily. pravastatin (PRAVACHOL) 20 Take 1 tablet by 30 tablet 3 MG tabletIndications: mouth daily. Hyperlipidemia LDL goal <160 documented as of this encounter Plan of Treatment Not on filedocumented as of this encounter Visit Diagnoses Not on filedocumented in this encounter Care Teams Compliance Aide Relationship Specialty Start Date End Date Mariaelena Boland PCP - General Internal Medicine 02/16/18 [facility] [address] [place] [address] documented as of this encounter
--- OUTSIDE RECORDS SUMMARY | 2022-05-14 08:44 | XMS_ITS | Encounter Summary ---
:1955 Author Organization [place] Address [address] [place] [address] Care Team Providers Name Role Phone Eldon Conway MD Primary Care Provider Reason for Visit Reason Comments Urinary Problem stress incont Encounter Details Date Type Department Care Team Description 09/19/2010 Office Visit [facility] for Oseas Pierson, Urine, incontinence, Bladder Control - stress female [address] (Primary Dx) [address] [place] [address] (Wo rk) [address] [phone] Social History Tobacco Use Types Packs/Day Years [...] Oseas Pierson - 09/19/2010 2:57 PM CDT Dainelle Waldrop is a 55 year old female [...] one bag gets 6 glasses. Works in [employer], Past Surgical History Procedure Date ??? C nonspecific procedure 1997 partial hysterectomy ??? Colonoscopy completed in 2005 ??? Blow Down Operator surgery 1997 Partial Hysterectomy because of prolapsed [...] At Bedtime., Disp: 90 tablet, Rfl: 3; [id number], Nature's Bounty Calcium Plus D - 600mg/500IU. ONE Softgel cap daily., Disp: , Rfl: ; Multiple Vitamin (MULTIVITAMIN) per tablet, Take 1 tablet by mouth daily., Disp: 100 tablet, Rfl: 12 [place]-3 Fatty Acids 1200 MG capsule, Take 1 [...] Negative > NEG (mg/dL) ? ? Specific [place] Urine <=1.005 1.003 - 1.035 ? ? [...] Urine macroscopic only (09/19/2010 2:05 PM CDT) [facility] Method Time Signature Color Urine Yellow [facility] Appearance Urine Clear [facility] Glucose Urine Negative NEG mg/dL [facility] Bilirubin Urine Negative NEG [facility] Ketones Urine Negative NEG mg/dL [facility] Specific [place] <=1.005 1.003 - [place] Urine 1.035 [facility] Blood Urine Trace (A) NEG [facility] pH Urine 6.0 5.0 - 7.0 [place] pH [facility] Protein Albumin Negative NEG mg/dL [place] Urine [facility] Urobilinogen 0.2 0.2 - 1.0 [place] Urine EU/dL [facility] Nitrite Urine Negative NEG [facility] Leukocyte Trace (A) NEG [place] Esterase Urine [facility] Source Midstream [place] Urine [facility] Specimen Anatomical Collection Method Collection Time Receive d Time (Source) Location / / Volume Laterality Urine specimen 09/19/2010 2:05 PM 011 2:06 (specimen) CDT PM CDT Oseas Pierson MD LAB - URINE ORDERABLES Performing Organization Address City/State/ZIP Code Phon e Number [facility] documented in this encounter Visit Diagnoses Diagnosis Urine, incontinence, stress female - [facility] Female stress incontinence documented in this encounter Care Teams Loader Demolder Relationship Specialty Start Date End Date Eldon Conway MD PCP - General 07/24/01 02/15/18 [address] [place] [address] documented as of this encounter
--- OUTSIDE RECORDS SUMMARY | 2022-05-14 08:44 | XMS_ITS | Encounter Summary ---
:1955 Author Organization [place] Address [address] [place] [address] Care Team Providers Name Role Phone Mariaelena Boland Primary Care Provider Reason for Referral Diagnostic Imaging XR - Closed Specialty Diagnoses / Procedures Referred By Contact Refer red To Contact Radiology. Diagnoses Dysphagia Krystian, Mariaelena Rh Xray Rscc Procedures XR Esophagram [facility] [address] [address] Phone: Fax: Referral ID Status Reason Start Date Expiration Date Visits Requ ested Visits Authorized [id number] Closed 02/16/2018 02/16/2019 1 1 Reason for Visit Diagnostic Imaging XR - Closed Specialty Diagnoses / Procedures Referred By Contact Refer red To Contact Radiology. Diagnoses Dysphagia Helgen, Mariaelena Rh Xray Rscc Procedures XR Esophagram [facility] [address] [facility] [address] [facility] [address] [place] [address] [place] [address] Phone: Fax: Referral ID Status Reason Start Date Expiration Date Visits Requ ested Visits Authorized [id number] Closed 02/16/2018 02/16/2019 1 1 Encounter Details Date Type Department Care Team Description 02/20/2018 Hospital Encounter [facility] Mariaelena Arteaga Dysphagia Imaging [facility] [address] [place] [address] [phone] Social History Tobacco Use Types Packs/Day Years [...] 12 08/02/2010 (MULTIVITAMIN) per tablet mouth daily. [place]-3 Fatty Acids 1200 Take 1 capsule by 180 capsule 12 MG capsule mouth daily. [id number] Nature's Bounty 0 07/10/2010 Calcium Plus D [...] assessed with direct visualization. JOHANNA MONZON MD Mariaelena [facility] ORDER CONSTANZA documented in this [...] dose documented in this encounter Care Teams Trade Embalmer Relationship Specialty Start Date End Date Mariaelena Boland PCP - General Internal Medicine 02/16/18 [facility] [address] [place] [address] documented as of this encounter
--- OUTSIDE RECORDS SUMMARY | 2022-05-14 08:45 | XMS_ITS | Encounter Summary ---
:1955 Author Organization [place] Address [address] [place] [address] Care Team Providers Name Role Phone Edlon Conway MD Primary Care Provider Encounter Details Date Type Department Care Team Description 01/04/2010 Hospital Pathology [facility] Patrice Bustillo, LOLIS [facility] Results CLINIC [address] [place] [address], [facility] [address], [place] [address] (Wo rk) Social History Tobacco Use Types Packs/Day Years Used Date Smoking Tobacco: Never Alcohol Use Standard Drinks/Week Comments No 0 [...] Component Value Ref Test Analysis Performed At [facility] Range Method Time Signature Copath Patient Name: DANIELLE ROBB COPATH Report MR#: [id number] Specimen #: [id number] Collected: 01/04/2010 Received: 01/04/2010 Reported: 01/05/2010 16:03 [...] Jacob Tang M.D. Processed and screened at [facility] CLINICAL HISTORY: Right dominant thyroid nodule , [...] atypical feature. MARITZA/emil 01-05-10 TESTING LAB LOCATION: [address] ??[address] COLLECTION SITE: Client: ??[facility] Location: ??[place] (R) Specimen Anatomical Collection Method Collection Time Receive d Time (Source) Location / / Volume Laterality 01/04/2010 2:22 PM 0 2:22 CDT PM CDT Hermann Bustillo NP LABORATORY Performing Organization Address City/State/ZIP Code Phon e Number [place] documented in this encounter Visit Diagnoses Not on filedocumented in this encounter Care Teams Deputy Commissioner Relationship Specialty Start Date End Date Eldon Conway MD PCP - General 07/24/01 02/15/18 [address] [place] [address] documented as of this encounter
--- OUTSIDE RECORDS SUMMARY | 2022-05-14 08:45 | XMS_ITS | Encounter Summary ---
:1955 Author Organization [place] Address [address] [place] [address] Care Team Providers Name Role Phone Eldon Conway MD Primary Care Provider Reason for Visit Reason Comments URI uri symptoms x5 weeks, c/o s inus pain/pressure, cough Encounter Details Date Type Department Care Team Description 08/09/[address] [facility] Eldon Conway, URI ([facility] Cathy Wadsworth MD Infection) (Primary [address] [address] [facility] S Dx) [place] [address] [phone] Social History Tobacco Use Types Packs/Day Years Used Date Smoking Tobacco: Never Alcohol Use Standard Drinks/Week Comments No 0 (1 standard drink = 0.6 oz pure alcoho l) Sex Assigned at Date Recorded Not on file documented as of this encounter Last Filed Vital Signs Vital Sign Reading Time Taken Comments Blood Pressure 110/62 08/09/2008 8:30 AM COSTUME SEAMSTRESS Pulse 80 08/09/2008 8:30 AM COSTUME SEAMSTRESS Temperature 36.8 ??C (98.2 ??F) 08/09/2008 8:30 AM COSTUME SEAMSTRESS Respiratory Rate 16 08/09/2008 8:30 AM COSTUME SEAMSTRESS Oxygen Saturation - - Inhaled Oxygen Concentration - - Weight 59.9 kg (132 lb) 08/09/2008 8:30 AM COSTUME SEAMSTRESS Height 156.2 cm (5' 1.5) 08/09/2008 8:30 AM COSTUME SEAMSTRESS Body Mass Index 24.54 08/09/2008 8:30 AM COSTUME SEAMSTRESS documented in this encounter Progress Notes Eldon [...] have suggested that the patient Push fluids. UME SEAMSTRESS documented in this encounter Nursing Notes 08/09/2008 [...] site documented in this encounter Care Teams Risk Control Product Liability Director Relationship Specialty Start Date End Date Eldon Conway MD PCP - General 07/24/01 02/15/18 [address] [place] [address] documented as of this encounter
--- OUTSIDE RECORDS SUMMARY | 2022-05-14 08:45 | XMS_ITS | Encounter Summary ---
:1955 Author Organization [place] Address [address] [place] [address] Care Team Providers Name Role Phone Eldon Conway MD Primary Care Provider Reason for Referral - Closed Specialty Diagnoses / Procedures Referred By Contact Refer red To Contact Diagnoses Thyroid nodule Enlarged thyroid Michelle Goins MD [facility] [address] [place] [address] Fax: Referral ID Status Reason Start Date Expiration Date Visits Requ ested Visits Authorized [id number] Closed 11/28/2009 11/28/2009 1 1 Reason for Visit Reason Comments Irregular Heart Beat 4-5 days Encounter Details Date Type Department Care Team Description 11/24/2009 Office Visit [facility] Briseida, Jose J Spec ified Cardiac Dysrhythmias (Primary Dx); [facility] [place] MD Michelle Hyperlipidemia; [address] [facility] Enlarged Thyroid; [place], [place] [facility] Palpitations; [address] [address] Thyroid Nodule [phone] [place], [place] [id number] (Wo rk) Social History Tobacco Use Types [...] Body Mass Index 24.72 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 Specimen Anatomical Collection Method Collection Time Receive d Time (Source) Location / / Volume Laterality 11/24/2009 11:06 11/24/2009 AM CDT 11:07 AM CDT Michelle Goins MD LABORATORY Performing Organization Address City/State/ZIP Code Phon e Number [facility] [address] [place] [address] [facility] ANTI-THYROID MICROSOMAL AB (11/24/2009 11:06 AM CDT) athologist Signature Thyroid <10 <35 IU/mL [facility] Peroxidase [place] [facility] Antibody Specimen Anatomical Collection Method Collection Time Receive d Time (Source) Location / / Volume Laterality 11/24/2009 11:06 11/24/2009 AM CDT 11:07 AM CDT Michelle Goins MD LABORATORY Performing Organization Address City/State/ZIP Code Phon e Number [facility] [address] [place] [address] [facility] A.M.A. COMPREHENSIVE MET.PANEL (11/24/2009 11:06 AM CDT) athologist Signature Sodium 144 133 - 144 [facility] mmol/L CLINIC LAB Potassium 4.4 3.4 - 5.3 [facility] mmol/L CLINIC LAB Chloride 104 94 - 109 [facility] mmol/L [facility]IC LAB Carbon Dioxide 27 20 - 32 [facility] mmol/L [facility]IC LAB Anion Gap 13 6 - 17 [facility] mmol/L [facility]IC LAB Glucose 92 60 - 99 [facility] mg/dL CLINIC LAB Urea Nitrogen 13 7 - 30 [facility] mg/dL CLINIC LAB Creatinine 0.81 0.52 - [facility] 1.04 mg/dL CLINIC LAB Comment: New IDMS-traceable calibration beginning 10/08/07 GFR Estimate 74 >60 mL/min/1.7m2 [facility] GFR Estimate If Black 89 >60 mL/min/1.7m2 [facility] Calcium 9.8 8.5 - 10.4 mg/dL [facility] Bilirubin Total 1.0 0.2 - 1.3 mg/dL [facility] Albumin 4.6 3.9 - 5.1 g/dL [facility] Comment: Reference range changed on 02/08. Protein Total 7.7 6.8 - 8.8 g/dL [facility] Comment: As of 07, reference range reflects plasma specimen type. Alkaline Phosphatase 69 40 - 150 U/L [facility] LAB ALT 25 0 - 50 U/L [facility] CLIN IC LAB AST 32 0 - 45 U/L [facility] CL[facility] IC LAB Specimen Anatomical Collection Method Collection Time Receive d Time (Source) Location / / Volume Laterality 11/24/2009 11:06 11/24/2009 AM CDT 11:07 AM CDT Michelle Goins MD LABORATORY Performing Organization Address [facility]/ZIP Code Phon e Number [facility] [address] [place] [address] [phone] [facility] (ABNORMAL) A.M.A. LIPID PANEL (11/24/2009 11:06 AM CDT) athologist Signature Cholesterol 262 (H) 0 - 200 [facility] mg/dL CLINIC LAB Comment: LDL Cholesterol is the primary guide to therapy. The NCEP recommends further evaluation of: patients with cholesterol <200 mg/dL if additional risk factors are present, cholesterol >240 mg/dL, triglycerides >150 mg/dL, or HDL <40 mg/dL. Triglycerides 96 0 - 150 mg/dL [facility] HDL Cholesterol 70 50 - 110 mg/dL [facility] LDL Cholesterol Calculated 173 (H) 0 - 129 mg/dL [facility] Comment: LDL Cholesterol is the primary guide to therapy: LDL-cholesterol goal in high risk patients is <100 mg/dL and in very high risk patients is <70 mg/dL. VLDL-Cholesterol 19 0 - 30 mg/dL [facility] LAB Cholesterol/HDL Ratio 3.8 0.0 - 5.0 [facility] Specimen Anatomical Collection Method Collection Time Receive d Time (Source) Location / / Volume Laterality 11/24/2009 11:06 11/24/2009 AM CDT 11:07 AM CDT Michelle Goins MD LABORATORY Performing Organization Address [facility]/ZIP Code Phon e Number [facility] [address] [place] [address] [phone] [facility] CBC WITH PLATELETS (11/24/2009 11:06 AM CDT) athologist Signature WBC 5.3 4.0 - 11.0 [facility] 10e9/L [facility] RBC Count 4.55 3.8 - 5.2 [facility] 10e12/L [facility] Hemoglobin 14.3 11.7 - [facility] 15.7 g/dL [facility] Hematocrit 42.6 35.0 - [facility] 47.0 % [facility] MCV 94 78 - 100 [facility] MCH 31.4 26.5 - [facility] 33.0 pg [facility] MCHC 33.6 31.5 - [facility] 36.5 g/dL [facility] RDW 12.3 10.0 - [facility] 15.0 % [facility] Platelet Count 251 150 - 450 [facility] 10e9/L [facility] Specimen Anatomical Collection Method Collection Time Receive d Time (Source) Location / / Volume Laterality 11/24/2009 11:06 11/24/2009 AM CDT 11:07 AM CDT Michelle Goins MD LABORATORY Performing Organization Address City/[facility]/ZIP Code Phon e Number [facility] [address] [place] [address] [facility] T4, FREE, SERUM (11/24/2009 11:06 AM CDT) athologist Signature T4 Free 1.10 0.70 - 1.85 [facility] ng/dL [facility] Specimen Anatomical Collection Method Collection Time Receive d Time (Source) Location / / Volume Laterality 11/24/2009 11:06 11/24/2009 AM CDT 11:07 AM CDT Michelle Goins MD LABORATORY Performing Organization Address City/State/ZIP Code Phon e Number [facility] [address] [place] [address] [facility] TSH- (11/24/2009 11:06 AM CDT) athologist Signature TSH 1.01 0.4 - 5.0 [facility] mU/L [facility] Specimen Anatomical Collection Method Collection Time Receive d Time (Source) Location / / Volume Laterality 11/24/2009 11:06 11/24/2009 AM CDT 11:07 AM CDT Michelle Goins MD LABORATORY Performing Organization Address City/State/ZIP Code Phon e Number [facility] [address] [place] [address] [facility] ELECTROCARDIOGRAM, COMP W/READ (11/24/2009 10:47 AM CDT) Narrative This result has an attachment that is no t available. Michelle Goins MD EKG TECHNICAL documented in this encounter Visit Diagnoses Diagnosis Other specified cardiac dysrhythmias(427 .89) - Primary Other specified cardiac dysrhythmias Hyperlipidemia Other and unspecified hyperlipidemia Enlarged thyroid Goiter, unspecified Palpitations Thyroid nodule Nontoxic uninodular goiter documented in this encounter Care Teams Extractor Loader And Unloader Relationship Specialty Start Date End Date Eldon Conway MD PCP - General 07/24/01 02/15/18 [address] [place], [place] [id number] documented as of this encounter
--- OUTSIDE RECORDS SUMMARY | 2022-05-14 08:45 | XMS_ITS | Encounter Summary ---
:1955 Author Organization [place] Address [address] [place] [address] Care Team Providers Name Role Phone Eldon Conway MD Primary Care Provider Encounter Details Date Type Department Care Team Description 12/03/2008 Hospital Pathology [facility] Bharath [facility] Results [address] [facility] [address] [place], [place] [address] (Wo rk) Social History [...] Value Ref Test Analysis Performed At [facility] Range Method Time Signature Copath Report Patient Name: DANIELLE ROBB MR#: [id number] Specimen #: [id number] Collected: 12/03/2008 Received: 12/03/2008 Reported: 12/05/2008 13:04 [...] is somewhat congested with a slight exudate. ??Employment Service Specialist sections. ??DCS/kd MICROSCOPIC: Microscopic examination was performed. MGP/sg 12-05-08 TESTING LAB LOCATION: [address] ??[address] COLLECTION SITE: Client: [facility] Location: PEDS (R) Specimen Anatomical Collection Method Collection Time Receive d Time (Source) Location / / Volume Laterality 12/03/2008 12:25 12/03/2008 9:19 AM CDT AM CDT Bharath Tracy MD LABORATORY Performing Organization Address City/State/ZIP Code Phon e Number [facility] documented in this encounter Visit Diagnoses Not on filedocumented in this encounter Care Teams X Ray Technologist Relationship Specialty Start Date End Date Eldon Conway MD PCP - General 07/24/01 02/15/18 [address] [place] [address] documented as of this encounter
--- OUTSIDE RECORDS SUMMARY | 2022-05-14 08:45 | XMS_ITS | Encounter Summary ---
:1955 Author Organization [place] Address [address] [place] [address] Care Team Providers Name Role Phone Eldon Conway MD Primary Care Provider Reason for Referral Specialty Diagnoses / Procedures Referred By Contact Refer red To Contact [place] [phone] [place] [phone] Referral ID Status Reason Start Date Expiration Date Visits Requ ested Visits Authorized Encounter Details Date Type Department Care Team Description 12/16/2008 Orders Only [facility] Eldon Conway, WIN SIS NOT YET Clinic Terrell MD DEFINED (Primary Dx) [address] [facility] [address] [place] [address] [phone] Social History Tobacco Use Types Packs/Day Years Used Date Smoking Tobacco: Never Alcohol Use Standard Drinks/Week Comments No 0 (1 standard drink = 0.6 oz pure alcoho l) Sex Assigned at Date Recorded Not on file documented as of this encounter Plan of Treatment Not on filedocumented as of this encounter Procedures Procedure Name Priority Date/Time Associated Diagnosis Comme nts ZZ CONSULT SURGERY Routine 03/28/2010 DIAGNOSIS NOT YET D EFINED documented in this encounter Results CONSULT SURGERY (03/28/2010) Narrative This result has an attachment that is no t available. Eldon Conway MD REFERRAL documented in this encounter Visit Diagnoses Diagnosis DIAGNOSIS NOT YET DEFINED - Primary documented in this encounter Care Teams Heel Reducer Relationship Specialty Start Date End Date Eldon Conway MD PCP - General 07/24/01 02/15/18 [address] [place] [address] documented as of this encounter
--- OUTSIDE RECORDS SUMMARY | 2022-05-14 08:45 | XMS_ITS | Encounter Summary ---
:1955 Author Organization [place] Address [address] [place] [address] Care Team Providers Name Role Phone Eldon Conway MD Primary Care Provider Encounter Details Date Type Department Care Team Description 03/10/2010 Historic Notes INTERFACED REPORT Interface, Transcript onMD Social History Tobacco Use Types Packs/Day Years Used Date Smoking Tobacco: Never Alcohol Use Standard Drinks/Week Comments No 0 (1 standard drink = 0.6 oz pure alcoho l) Sex Assigned at Date Recorded Not on file documented as of this encounter Progress Notes Interface, Bone Crusher - 08/24/2010 6:51 PM CDT Patient Status - Diagnosis/Procedure right thyroid lobectomy - Physical status Stable (s/s of potential complications absent or manageable) - Psychosocial status Stable Discharge Planning - Discharge From: [facility] - Patient Care Unit: 5th floor - PCU - Discharge To: Home/Alternative home Discharge Information - Valuables returned Valuables returned - Discharge information Discharge instructions reviewed with pt/family/so - Accompanied by Spouse - Mode of Travel Wheelchair Medications and Prescriptions - Medications and Prescriptions sent to pharmacy Patient declined Prescriptions [place] script, sent back to pharmacy Support Services [...] Dr. Alba call: - Phone number of [facility] [phone] patient should call: - Is patient going [...] on filedocumented in this encounter Care Teams Dermatology Sales Representative Relationship Specialty Start Date End Date Eldon Conway MD PCP - General 07/24/01 02/15/18 [address] [facility] [place] [address] documented as of this encounter
--- OUTSIDE RECORDS SUMMARY | 2022-05-14 08:45 | XMS_ITS | Encounter Summary ---
:1955 Author Organization [place] Address [address] [place] [address] Care Team Providers Name Role Phone Eldon Conway MD Primary Care Provider Reason for Visit Reason Comments Radiology Visit Encounter Details Date Type Department Care Team Description 09/06/2008 Orders Only [facility] Scr eening Mammogram [place] (Primary Dx) [address] [place] [address] Social History Tobacco Use Types Packs/Day Years Used Date Smoking Tobacco: Never Alcohol Use Standard Drinks/Week Comments No 0 (1 standard drink = 0.6 oz pure alcoho l) Sex Assigned at Date Recorded Not on file documented as of this encounter Plan of Treatment Not on filedocumented as of this encounter Procedures Procedure Name Priority Date/Time Associated Diagnosis Comme [facility] HC MAMMOGRAM, Routine 09/06/2008 Screening Mammogram [...] mammogram documented in this encounter Care Teams Senior Abap Developer Relationship Specialty Start Date End Date Eldon Conway MD PCP - General 07/24/01 02/15/18 [address] [place] [address] documented as of this encounter
--- OUTSIDE RECORDS SUMMARY | 2022-05-14 08:45 | XMS_ITS | Encounter Summary ---
:1955 Author Organization [place] Address [address] [place] [address] Care Team Providers Name Role Phone Eldon Conway MD Primary Care Provider Reason for Visit Reason Comments RECHECK Encounter Details Date Type Department Care Team Description 04/17/2010 Office Visit [facility] Irma Rosario, Thyro id nodule; Clinic [place] RN PRIOR AUTHORIZATION S/P partial thyroidectomy; [address] [facility] [address] [facility] [place], [address] [address] [place] [address] (Wo rk) Social History Tobacco Use Types Packs/Day Years Used Date Smoking Tobacco: Never Alcohol Use Standard Drinks/Week Comments No 0 (1 standard drink = 0.6 oz pure alcoho l) Sex Assigned at Date Recorded Not on file documented as of this encounter Last Filed Vital Signs Vital Sign Reading Time Taken Comments Blood Pressure 132/76 04/17/2010 3:14 PM [facility] Pulse 84 04/17/2010 3:14 PM [facility] Temperature - - Respiratory Rate - - Oxygen Saturation - - Inhaled Oxygen Concentration - - Weight 62.1 kg (137 lb) 04/17/2010 3:14 PM [facility] Height 156.2 cm (5' 1.5) 04/17/2010 3:14 PM [facility] Body Mass Index 25.47 04/17/2010 3:14 PM [facility] documented in this encounter Progress Notes Irma Rosario - 04/17/2010 3:17 PM CST Images from the original note were not included. HPI Endocrinology: [facility], [address] [facility] [address], Ph. [phone] [facility], [address] [place] [address], Danielle Waldrop is a 54 year old [...] in the beginning ofnote. Irma Rosario MD [facility] [facility] (CC: No ref. provider found) (CC: Dr. Eldon Conway MD) [facility] documented in this encounter Nursing Notes 04/17/2010 [...] PM Thyroid nodul e Results for this [facility] S/P partial procedure are i n thyroidectomy the results Hyperandrogenism section. TESTOSTERONE FREE AND Routine 04/17/2010 3:41 PM Thyroid nodule Results for this TOTAL [facility]NAGER [facility]AIL STORE S/P partial procedure are i n thyroidectomy the results Hyperandrogenism section. T4 FREE Routine 04/17/2010 3:41 PM Thyroid nodul e Results for this [facility] S/P partial procedure are i n thyroidectomy the results Hyperandrogenism section. PARATHYROID HORMONE Routine 04/17/2010 3:41 PM Thyroid n odule Results for this INTACT MANAGER RETAIL STORE S/P partial procedure are i n thyroidectomy the results Hyperandrogenism section. ESTROGENS TOTAL Routine 04/17/2010 3:41 PM Thyroid nodul e Results for this [facility] S/P partial procedure are i n thyroidectomy the results Hyperandrogenism section. COMPREHENSIVE Routine 04/17/2010 3:41 PM Thyroid nodul e Results for this METABOLIC PANEL [facility] S/P partial procedure ar e in thyroidectomy the results Hyperandrogenism section. documented in this encounter Results Estrogens total (04/17/2010 3:41 PM [facility]) Analysis Performed At [facility] logist Time Signature Lab Scanned ESTROGENS, MISYS Result TOTAL-Scan clint Specimen Anatomical Collection Method Collection Time Receive d Time (Source) Location / / Volume Laterality Blood specimen 04/17/2010 3:41 PM 010 3:46 (specimen) [facility] PM [facility] Irma Rosario NP LAB - BLOOD ORDERABLES Performing Organization Address City/State/ZIP Code Phon e Number [place] (ABNORMAL) Testosterone free and total (04/17/2010 3:41 PM [facility]) Component Value Ref Test Analysis Performed At [facility] gist Range Method Time Signature Percent 1.8 1.0 - [facility] Testosterone 3.8 % [facility] LABS Testosterone <10 (L) 14 - 75 [facility] Total ng/dL [facility] LABS Testosterone Unable to calculate due to low value 0.1 - [facility] Free Total testosterone is less than 10 ng/dL. 1.5 [place] ng/dL [facility] LABS Specimen Anatomical Collection Method Collection Time Receive d Time (Source) Location / / Volume Laterality Blood specimen 04/17/2010 3:41 PM 010 3:46 (specimen) [facility] PM [facility] Imra Rosario RN PRIOR AUTHORIZATION LAB - BLOOD ORDERABLES Performing Organization Address City/Special Care Hospital/ZIP Code Phon e Number [facility] [address] LABS Parathormone intact (04/17/2010 3:41 PM [facility]) athologist Signature Parathyroid 38 12 - 72 [facility] Hormone Intact pg/mL [facility] LABS Specimen Anatomical Collection Method Collection Time Receive d Time (Source) Location / / Volume Laterality Blood specimen 04/17/2010 3:41 PM 010 3:46 (specimen) [facility] PM [facility] Irma Rosario NP LAB - BLOOD ORDERABLES Performing Organization Address City/Special Care [facility]/ZIP Code Phon e Number [facility] [address] [place], [place] [phone] [place] [address] LABS T4 FREE (04/17/2010 3:41 PM [facility]) athologist Signature T4 Free 0.95 0.70 - 1.85 [place] [facility] ng/dL CLINIC LAB Specimen Anatomical Collection Method Collection Time Receive d Time (Source) Location / / Volume Laterality Blood specimen 04/17/2010 3:41 PM 010 3:46 (specimen) [facility] PM [facility] Irma Rosario RN PRIOR AUTHORIZATION LAB - BLOOD ORDERABLES Performing Organization Address City/State/ZIP Code Phon e Number [facility] [address] [place] [address] [facility] LAB TSH (04/17/2010 3:41 PM [facility]) athologist Signature TSH 1.92 0.4 - 5.0 [facility] mU/L CLINIC LAB Specimen Anatomical Collection Method Collection Time Receive d Time (Source) Location / / Volume Laterality Blood specimen 04/17/2010 3:41 PM 010 3:46 (specimen) [facility] PM [facility] Irma Rosario NP LAB - BLOOD ORDERABLES Performing Organization Address City/State/ZIP Code Phon e Number [facility] [address] [place] [address] [facility] LAB (ABNORMAL) Comprehensive metabolic panel (04/17/2010 3:41 PM [facility]) P athologist Signature Sodium 147 (H) 133 - 144 [place] mmol/L [facility] LAB Potassium 3.9 3.4 - 5.3 [place] mmol/L [facility] LAB Chloride 105 94 - 109 [place] mmol/L [facility] LAB Carbon Dioxide 27 20 - 32 [place] mmol/L [facility] LAB Anion Gap 14 6 - 17 [place] mmol/L [facility] LAB Glucose 91 60 - 99 [place] mg/dL [facility] LAB Urea Nitrogen 16 7 - 30 [place] mg/dL [facility] LAB Creatinine 0.69 0.52 - [place] 1.04 mg/dL [facility] LAB Comment: New IDMS-traceable calibration beginning 10/08/07 GFR Estimate 89 >60 mL/min/1.7m2 [place] [facility] LAB GFR Estimate If Black >90 >60 mL/min/1.7m2 F [facility] LAB Calcium 9.6 8.5 - 10.4 mg/dL [facility] Bilirubin Total 0.4 0.2 - 1.3 mg/dL [facility] LAB Albumin 4.7 3.9 - 5.1 g/dL [facility] LAB Comment: Reference range changed on 02/08. Protein Total 7.7 6.8 - 8.8 g/dL [place] [facility] LAB Comment: As of 07, reference range reflects plasma specimen type. Alkaline Phosphatase 65 40 - 150 U/L [facility] ALT 31 0 - 50 U/L [facility] LAB AST 27 0 - 45 U/L [facility] CLIN IC LAB Specimen Anatomical Collection Method Collection Time Receive d Time (Source) Location / / Volume Laterality Blood specimen 04/17/2010 3:41 PM 010 3:46 (specimen) [facility] PM [facility] Irma Rosario NP LAB - BLOOD ORDERABLES Performing Organization Address City/State/ZIP Code Phon e Number [facility] [address] [place] [address] [facility] LAB documented in this encounter Visit Diagnoses Diagnosis Thyroid nodule Nontoxic uninodular goiter S/P partial thyroidectomy Other postprocedural status Hyperandrogenism Other ovarian hyperfunction documented in this encounter Care Teams Nursing Assistant Relationship Specialty Start Date End Date Eldno Conway MD PCP - General 07/24/01 02/15/18 [address] [place] [address] documented as of this encounter
--- OUTSIDE RECORDS SUMMARY | 2022-05-14 08:45 | XMS_ITS | Encounter Summary ---
:1955 Author Organization [place] Address [address] [place] [address] Care Team Providers Name Role Phone Eldon Conway MD Primary Care Provider Encounter Details Date Type Department Care Team Description 03/09/2010 Hospital Pathology [facility] Results [address] [place], [place] [address] (Wo rk) Social History [...] Component Value Ref Test Analysis Performed At [facility] Range Method Time Signature Copath Patient Name: DANIELLE WALDROP COPATH Report MR#: [id number] Specimen #: [id number] Collected: 03/09/2010 Received: 03/09/2010 Reported: 03/12/2010 13:14 [...] are identified. ??Block 1 - Frozen section containers sales representative of nodule; block 2 - isthmus [...] no dule. MARITZA/eric 03-12-10 TESTING LAB LOCATION: [address] ??[address] COLLECTION SITE: Client: [facility] Location: [facility] (R) Specimen (Source) Anatomical Collection Method Collection Time Re ceived Time Location / / Volume Laterality 03/09/2010 03/09/2010 11:0 8 AM CDT Janine Fish MD LABORATORY Performing Organization Address City/State/ZIP Code Phon e Number [place] documented in this encounter Visit Diagnoses Not on filedocumented in this encounter Care Teams Driller Helper Relationship Specialty Start Date End Date Eldon Conway MD PCP - General 07/24/01 02/15/18 [address] [place] [address] documented as of this encounter
--- OUTSIDE RECORDS SUMMARY | 2022-05-14 08:45 | XMS_ITS | Encounter Summary ---
:1955 Author Organization [place] Address [address] [place] [address] Care Team Providers Name Role Phone Eldon Conway MD Primary Care Provider Reason for Visit Reason Onset Date Comments Thyroid Problem 05/01/2010 Encounter Details Date Type Department Care Team Description 05/01/2010 Telephone [facility] Irma Carter NP Thyroid Problem [facility] [address], [address], [place] [address] [phone] Social History Tobacco Use Types Packs/Day Years Used Date Smoking Tobacco: Never Alcohol Use Standard Drinks/Week Comments No 0 (1 standard drink = 0.6 oz pure alcoho l) Sex Assigned at Date Recorded Not on file documented as of this encounter Miscellaneous Notes Telephone Encounter - Whitney Sutton - 05/02/2010 10:10 AM CST Detailed message left for pt RIAL FLOW ENGINEER Telephone Encounter - Irma Rosario - 05/01/2010 10:52 PM CST Yes , of course, for any wound, or surgical complication she should call the surgery clinic. I'll respond to the labs. Irma Rosario MD [facility] RIAL FLOW ENGINEER Telephone Encounter - October - 05/01/2010 8:38 AM CST Patient calling, partial thyroidectomy 03/09/10, yesterday noticed red area 2 1/2 wide above surgical scar, no pain, no drainage, not itchy, Asking what she should do-call surgeon? Also asking for lab results from recent lab tests please advise RIAL FLOW ENGINEER documented in this encounter Plan of Treatment Not on filedocumented as of this encounter Visit Diagnoses Not on filedocumented in this encounter Care Teams Spd Manager Relationship Specialty Start Date End Date Eldon Conway MD PCP - General 07/24/01 02/15/18 [address] [place] [address] documented as of this encounter
--- OUTSIDE RECORDS SUMMARY | 2022-05-14 08:45 | XMS_ITS | Encounter Summary ---
:1955 Author Organization [place] Address [address] [place] [address] Care Team Providers Name Role Phone Eldon Conway MD Primary Care Provider Reason for Visit Reason Comments RECHECK discuss upcoming surgery for thyroid Encounter Details Date Type Department Care Team Description 02/05/2010 Office Visit [facility] Deangelo Rosario, REGULATOR ASSEMBLER Thyroid Nodule; Clinic [facility] Unspecified Natu re of Thyroid Gland [address], [address], [place] GREGORIO SOLANO [address] [phone] Social History Tobacco Use Types Packs/Day Years [...] original note were not included. HPI Endocrinology [facility] [address] [place], [place] [id number] [facility] [address] [place], [place] [phone] Danielle Waldrop is a 54 year old [...] are answered in detail. Irma Rosario MD [facility] documented in this encounter Nursing Notes [...] system documented in this encounter Care Teams Any Commodity Buyer Relationship Specialty Start Date End Date Eldon Conway MD PCP - General 07/24/01 02/15/18 [address] [place] [address] documented as of this encounter
--- OUTSIDE RECORDS SUMMARY | 2022-05-14 08:45 | XMS_ITS | Encounter Summary ---
:1955 Author Organization [place] Address [address] [place] [address] Care Team Providers Name Role Phone Eldon Conway MD Primary Care Provider Reason for Visit Reason Comments Consult Encounter Details Date Type Department Care Team Description 01/02/2010 Office Visit [facility] Deangelo Rosario, HOST/HOSTESS HEAD Thyroid Nodule; Clinic [facility] Palpitations; [address] CLINIC Hot Flushes [place], [address], [place] [address] [phone] Social History Tobacco Use Types Packs/Day Years [...] original note were not included. HPI Endocrinology [facility] [address] [place], [place] [address] [facility] [address] [place], [place] [id number] Endocrinology Consultation (or referral) requested by: Dr. [...] (scans, labs), and treatment (if not at [facility]) : NA ~~~~~~~~~~~~~~~~~~~~~~~~~~~~~~~~~~~~~~~~~~~~SUMMARY~~~~~~~~~~~~~~~~~~~~~~~~~~~~~ ~~~~~~~~~~~~ Pertinent Findings: (History, [...] also discuss her ECG with the son's wash tub machine operator, since itmay affect their decision making. 3. [...] in the beginning ofnote. Irma Rosario MD [facility] [facility] (CC: Dr. Goins) (CC: Dr. Eldon Conway MD) documented in this encounter Nursing Notes 01/02/2010 10:00 AM CDT >> RENÉE Anthony Jan 02, 2010 10:13 AM Patient presents [...] CDT) P athologist Signature Estradiol 11 pg/mL [facility] LABS Comment: Estradiol Reference Range Female ? Follicular ? 11-165 pg/mL ? Mid-cycle ?146-526 pg/mL ? Luteal ? 33-196 pg/mL ? Postmenopausal (untreated) <37 pg/mL Specimen Anatomical Collection Method Collection Time Receive d Time (Source) Location / / Volume Laterality 01/02/2010 11:15 01/02/2010 AM CDT 11:20 AM CDT Shaban Abraham HOST/HOSTESS HEAD LABORATORY Performing Organization Address City/State/ZIP Code Phon e Number [facility] [address] LABS [facility] (GONADOTROPIN) (01/02/2010 11:15 AM CDT) P athologist Signature FSH 29.8 IU/L [facility] LABS Comment: FSH Reference Range Female: Follicular ?2.5-10.2 ? Mid-cycle ? 3.4-33.4 ? Luteal ?1.5-9. 1 ? Postmenopausal ??23.0-116.3 Specimen Anatomical Collection Method Collection Time Receive d Time (Source) Location / / Volume Laterality 01/02/2010 11:15 01/02/2010 AM CDT 11:20 AM CDT Irma Rosario NP LABORATORY Performing Organization Address City/[facility]/ZIP Code Phon e Number [facility] [address] LABS LH, SERUM (01/02/2010 11:15 AM CDT) P athologist Signature Lutropin 19.3 IU/L [facility] LABS Comment: LH Reference Range Female: Follicular ?1.9-12.5 ? Mid-cycle ? 8.7-76.3 ? Luteal ?0.5-16 .9 ? Postmenopausal ??15.9-54.0 Specimen Anatomical Collection Method Collection Time Receive d Time (Source) Location / / Volume Laterality 01/02/2010 11:15 01/02/2010 AM CDT 11:20 AM CDT Irma Rosario NP LABORATORY Performing Organization Address City/State/ZIP Code Phon e Number [facility] [address] LABS (ABNORMAL) TESTOSTERONE, FREE & TOTAL (01/02/2010 11:15 AM CDT) Patholo gist Method Time Signature Percent 1.8 1.0 - 3.8 [facility] Testosterone Free % [facility] LABS Testosterone 142 (H) 14 - 75 [facility] Total ng/dL [facility] LABS Testosterone Free 2.6 (H) 0.1 - 1.5 [facility] ng/dL [facility] LABS Comment: Analyte Specific Reagents (ASRs) are use d in many laboratory tests necessary for standard medical care and generally do not require FDA approval. ??This test was developed and its preformance character istics determined by [facility]. ? ?It has not been cleared or approved by the U.S. Food and Drug Administration. Specimen Anatomical Collection Method Collection Time Receive d Time (Source) Location / / Volume Laterality 01/02/2010 11:15 01/02/2010 AM CDT 11:20 AM CDT Irma Rosario NP LABORATORY Performing Organization Address City/[facility]/ZIP Code Phon e Number [id number] [place] [address] LABS T3, TOTAL (01/02/2010 11:15 AM CDT) [facility] Method Time Signature Triiodothyronine 83 60 - 181 [facility] (T3) ng/dL [facility] LABS Specimen Anatomical Collection Method Collection Time Receive d Time (Source) Location / / Volume Laterality 01/02/2010 11:15 01/02/2010 AM CDT 11:20 AM CDT Irma Rosario NP LABORATORY Performing Organization Address City/[facility]/ZIP Code Phon e Number [phone] [place] [address] LABS T4, FREE, SERUM (01/02/2010 11:15 AM CDT) P athologist Signature T4 Free 0.96 0.70 - 1.85 [facility] ng/dL CLINIC LAB Specimen Anatomical Collection Method Collection Time Receive d Time (Source) Location / / Volume Laterality 01/02/2010 11:15 01/02/2010 AM CDT 11:20 AM CDT Irma Rosario NP LABORATORY Performing Organization Address City/State/ZIP Code Phon e Number [facility] [address] [place] [address] [facility] LAB TSH- (01/02/2010 11:15 AM CDT) P athologist Signature TSH 0.88 0.4 - 5.0 [facility] mU/L CLINIC LAB Specimen Anatomical Collection Method Collection Time Receive d Time (Source) Location / / Volume Laterality 01/02/2010 11:15 01/02/2010 AM CDT 11:20 AM CDT Irma Rosario NP LABORATORY Performing Organization Address City/State/ZIP Code Phon e Number [facility] [address] [place] [address] [facility] LAB documented in this encounter Visit Diagnoses Diagnosis Thyroid nodule Nontoxic uninodular goiter Palpitations Hot flushes Symptomatic menopausal or female climact dicks[place] states documented in this encounter Care Teams Nanotechnician Relationship Specialty Start Date End Date Eldon Conway MD PCP - General 07/24/01 02/15/18 [address] [place] [address] documented as of this encounter
--- OUTSIDE RECORDS SUMMARY | 2022-05-14 08:45 | XMS_ITS | Encounter Summary ---
:1955 Author Organization [place] Address [address] [place] [address] Care Team Providers Name Role Phone Eldon Conway MD Primary Care Provider Encounter Details Date Type Department Care Team Description 03/09/2010 Operative Report [facility] Janine Fish, (Bit And Shank Department Supervisor) [facility] Results [address] [place] [address] (Wo rk) Social History Tobacco [...] 1 gram IV. SURGEON: Janine Fish MD [place]: RUBINA Lucas INDICATIONS: Danielle Waldrop is a [...] EM#[id number] Name: DANIELLE WALDROP MRN: [id number] Account: [id number] : 1955 Procedure Date: 03/09/2010 Document: [id number] documented in this encounter Plan of Treatment Not on filedocumented as of this encounter Visit Diagnoses Not on filedocumented in this encounter Care Teams Furnace Converter Relationship Specialty Start Date End Date Eldon Conway MD PCP - General 07/24/01 02/15/18 [address] [place] [address] documented as of this encounter
--- OUTSIDE RECORDS SUMMARY | 2022-05-14 08:45 | XMS_ITS | Encounter Summary ---
:1955 Author Organization [place] Address [address] [place] [address] Care Team Providers Name Role Phone Eldon Conway MD Primary Care Provider Reason for Visit Reason Onset Date Comments Other 01/12/2010 thyroid nodule Encounter Details Date Type Department Care Team Description 01/12/2010 Telephone [facility] Deangelo Rosario, CATALOG LIBRARIAN Other (thyroid Clinic [facility] nodule) [address], [address], [place] [address] [phone] Social History Tobacco Use Types Packs/Day Years [...] apt in the clinic. Irma Rosario MD [facility] Telephone Encounter - Chris October - [...] on filedocumented in this encounter Care Teams Fisher Troll Line Relationship Specialty Start Date End Date Eldon Conway MD PCP - General 07/24/01 02/15/18 [address] [place] [address] documented as of this encounter
--- OUTSIDE RECORDS SUMMARY | 2022-05-14 08:45 | XMS_ITS | Encounter Summary ---
:1955 Author Organization [place] Address [address] [place] [address] Care Team Providers Name Role Phone Eldon [...] RESULTS Atrial Rate 68 BPM RADIOLOGY RESULTS NE Interval 92 ms RADIOLOGY RESULTS QRS Duration 84 ms RADIOLOGY RESULTS QT 414 ms RADIOLOGY RESULTS QTc 440 ms RADIOLOGY RESULTS P Agency 19 degrees RADIOLOGY RESULTS R AXIS 0 degrees RADIOLOGY RESULTS T Agency 32 degrees RADIOLOGY RESULTS Interpretation Sinus rhythm with short NE RADIOLOGY ECG Cannot rule out Anterior infarct [...] on filedocumented in this encounter Care Teams Drink Box Mechanic Relationship Specialty Start Date End Date Eldon Conway MD PCP - General 07/24/01 02/15/18 [address] [place] [address] documented as of this encounter
--- OUTSIDE RECORDS SUMMARY | 2022-05-14 08:45 | XMS_ITS | Encounter Summary ---
:1955 Author Organization [place] Address [address] [place] [address] Care Team Providers Name Role Phone Eldon Conway MD Primary Care Provider Reason for Visit Reason Onset Date Comments Other 01/17/2010 questions regarding surgery Encounter Details Date Type Department Care Team Description 01/17/2010 Telephone [facility] Deangelo Rosario, LOLIS Other (questions Clinic [facility] regarding surgery) [address] [place] [address], [address] [address] [phone] Social History Tobacco Use Types Packs/Day Years [...] appointments at this time. Telephone Encounter - Chris October - 01/17/2010 12:04 PM CDT Patient calling, she has decided she would like to have the surgery, Does she need to keep her appointment with you-please advise She can be reached on cell phone [phone] OK to leave message documented in this encounter Plan of Treatment Not on filedocumented as of this encounter Visit Diagnoses Not on filedocumented in this encounter Care Teams Flight Instructor Relationship Specialty Start Date End Date Eldon Conway MD PCP - General 07/24/01 02/15/18 [address] [place] [address] documented as of this encounter
--- OUTSIDE RECORDS SUMMARY | 2022-05-14 08:45 | XMS_ITS | Encounter Summary ---
:1955 Author Organization [place] Address [address] [place] [address] Care Team Providers Name Role Phone Eldon [...] RESULTS Atrial Rate 66 BPM RADIOLOGY RESULTS ME Interval 94 ms RADIOLOGY RESULTS QRS Duration 80 ms RADIOLOGY RESULTS QT 402 ms RADIOLOGY RESULTS QTc 421 ms RADIOLOGY RESULTS P [place] 5 degrees RADIOLOGY RESULTS R AXIS 1 degrees RADIOLOGY RESULTS T [place] 20 degrees RADIOLOGY RESULTS Interpretation Sinus rhythm with short ME RADIOLOGY ECG Cannot rule out Anterior infarct [...] on filedocumented in this encounter Care Teams Hand Bookbinder Relationship Specialty Start Date End Date Eldon Conway MD PCP - General 07/24/01 02/15/18 [address] [place] [address] documented as of this encounter
--- OUTSIDE RECORDS SUMMARY | 2022-05-14 08:45 | XMS_ITS | Encounter Summary ---
:1955 Author Organization [facility] Address [address] [place] [address] Care Team Providers Name Role Phone Eldon Conway MD Primary Care Provider Encounter Details Date Type Department Care Team Description 03/07/2010 Historic Notes INTERFACED REPORT Interface, Transcript onMD Social History Tobacco Use Types Packs/Day Years Used Date Smoking Tobacco: Never Alcohol Use Standard Drinks/Week Comments No 0 (1 standard drink = 0.6 oz pure alcoho l) Sex Assigned at Date Recorded Not on file documented as of this encounter Progress Notes Interface, Cash Accounting Clerk - 08/24/2010 7:05 PM CDT General Information - How to be Addressed Danielle - Patient Belongings cell phone - breakdown person #1: Artemio Waldrop - Relationship to patient #1: - Phone 1: [phone] - Patient's spoken language; Moroccan or Bilingual communication style Advance Directive - [...] issues Change/Loss/Stressor - Techniques Used to laugh [place] with Loss/Stress or Change - QUESTION TO [...] abuse, self neglect, lack of adequate food, nursing home, medical care, or financial exploitation)? Values/Beliefs/Spiritual Care [...] none Considerations - Developmental none Considerations - Sabianist none Considerations Mutuality/Individual Preferences - What information [...] on filedocumented in this encounter Care Teams Lease Operator Relationship Specialty Start Date End Date Eldon Conway MD PCP - General 07/24/01 02/15/18 [address] [place] [address] documented as of this encounter
--- OUTSIDE RECORDS SUMMARY | 2022-05-14 08:45 | XMS_ITS | Encounter Summary ---
:1955 Author Organization [place] Address [address] [place] [address] Care Team Providers Name Role Phone Eldon Conway MD Primary Care Provider Encounter Details Date Type Department Care Team Description 12/03/2008 Emergency room [facility] Mae Barron, Hospital Results MD EMERGENCY PHYSIC АНДРЕЙ CESPEDES [address] [facility] [address] [place] [address] (Wo rk) Social History Tobacco Use Types Packs/Day Years Used Date Smoking Tobacco: Never Alcohol Use Standard Drinks/Week Comments No 0 (1 standard drink = 0.6 oz pure alcoho l) Sex Assigned at Date Recorded Not on file documented as of this encounter Progress Notes Sri Barron MD - 02/17/2009 6:48 PM CDT FINAL CHIEF COMPLAINT: Right-sided abdominal pain. HISTORY OF PRESENT ILLNESS: Danielle Robb is a 53-year-old female who presents to the emergency department after she was diagnosed with acute appendicitis with a retrocecal appendix by a [facility]. She was sent over here to be admitted and have surgery. I spoke to the patient and shesays her pain began about 2 days ago. The pain is in the right abdomen and it is worse with pressing on it, no fevers, chills, no vomiting. She is otherwise healthy. She has had a partial hysterectomy.Her last meal was at 11:00 a.m. today. The pain is about a 3/10, it comes and goes, it is in the right abdomen. Nothing seems to make it any better. ALLERGIES: None. CURRENT MEDICATIONS: Progesterone, testosterone cream and Pepto-Bismol. PAST MEDICAL HISTORY: High cholesterol, see HPI. SOCIAL HISTORY: Nonsmoker. FAMILY HISTORY: Negative. REVIEW OF SYSTEMS: See HPI. All other systems are negative. PHYSICAL EXAMINATION: VITAL SIGNS: Blood pressure 126/88, pulse 101, respirations 16, temperature 98.6 and oxygen saturation 97% on room air. GENERAL: This is a 53-year-old female who is pleasant to talk to. HEENT: Eyes normal. Ears, nose and throat are normal. CARDIOVASCULAR: Heart was in a regular rate and rhythm. RESPIRATORY: Breath sounds are clear. GASTROINTESTINAL: Reveals a soft abdomen and really nontender to palpation. No rebound tenderness but after I palpate the patient's abdomen she does have onset of pain after my hands are off of her abdomen. She thinks that when I palpated her abdomen that it made something worse. MUSCULOSKELETAL: Normal. SKIN: Normal. NEUROLOGIC: Nonfocal. PSYCHIATRIC: Patient is appropriate. LABORATORY AND DIAGNOSTICS: I spoke to the radiologist who read the patient's CT and we feel she has acute appendicitis. EMERGENCY DEPARTMENT COURSE: The patient was given Invanz here in the emergency department. I spoketo Dr. Tracy who will be taking her to the operating room. Unfortunately, CT films were not sent with this patient and Dr. Tracy wanted to take a look at them to stage electrician helper him in this surgery. I had to make a number of phone calls and it took quite a while to finally talk to someone from, I believe it was [employer], who was able to review the films and would send us a copy. At that point I had talked to them the patient had already gone to the OR, but I still feel films are important and that they should be sent with the patient. The person I talked to over at [employer] said that they would try tomake sure that this happened in the future. DIAGNOSIS: Acute appendicitis. Electronically signed on 02/17/2009 18:47 by SRI BARRON MD MT: [id number] Name: DANIELLE ROBB Account: [id number] : 1955 Visit Date: 12/03/2008 Document: [id number] documented in this encounter Plan of Treatment Not on filedocumented as of this encounter Visit Diagnoses Not on filedocumented in this encounter Care Teams Rn Gastroenterology Relationship Specialty Start Date End Date Eldon Conway MD PCP - General 07/24/01 02/15/18 [address] [place] [address] documented as of this encounter
--- OUTSIDE RECORDS SUMMARY | 2022-05-14 08:45 | XMS_ITS | Encounter Summary ---
:1955 Author Organization [place] Address [address] [place] [address] Care Team Providers Name Role Phone Eldon Conway MD Primary Care Provider Reason for Visit Reason Comments Derm Problem genital wart--cut off while shaving and currently having excessive bleeding Encounter Details Date Type Department Care Team Description 05/20/2009 Office Visit [facility] Yokasta Ramirez, Nereyda boles (Primary Clinic [place] [facility]) [address] [place] [address] [phone] Social History Tobacco Use Types Packs/Day Years Used Date Smoking Tobacco: Never Alcohol Use Standard Drinks/Week Comments No 0 (1 standard drink = 0.6 oz pure alcoho l) Sex Assigned at Date Recorded Not on file documented as of this encounter Last Filed Vital Signs Vital Sign Reading Time Taken Comments Blood Pressure 124/80 05/20/2009 8:44 AM PHOTOGRAPHY PROFESSOR Pulse 88 05/20/2009 8:44 AM PHOTOGRAPHY PROFESSOR Temperature 36.7 ??C (98 ??F) 05/20/2009 8:44 AM PHOTOGRAPHY PROFESSOR Respiratory Rate 16 05/20/2009 8:44 AM PHOTOGRAPHY PROFESSOR Oxygen Saturation - - Inhaled Oxygen Concentration - - Weight 59.9 kg (132 lb) 05/20/2009 8:44 AM PHOTOGRAPHY PROFESSOR Height - - Body Mass Index 24.54 05/13/2009 11:06 AM PHOTOGRAPHY PROFESSOR documented in this encounter Progress Notes Yokasta [...] up as needed for nonresolution of symptoms OGRAPHY PROFESSOR documented in this encounter Nursing Notes 05/20/2009 [...] complication documented in this encounter Care Teams Leather Piece Inspector Relationship Specialty Start Date End Date Eldon Conway MD PCP - General 07/24/01 02/15/18 [address] [place] [address] documented as of this encounter
--- OUTSIDE RECORDS SUMMARY | 2022-05-14 08:45 | XMS_ITS | Encounter Summary ---
:1955 Author Organization [facility] Address [address] [place] [address] Care Team Providers Name Role Phone Eldon Conway MD Primary Care Provider Reason for Visit Reason Onset Date Comments Pt. Information/instruction 06/13/2009 Encounter Details Date Type Department Care Team Description 06/12/2009 Telephone [facility] Eldon Conway, Pt. Clinic Cathy Wadsworth MD Information/instruction [address] [place] [address] [phone] Social History Tobacco Use Types Packs/Day Years Used Date Smoking Tobacco: Never Alcohol Use Standard Drinks/Week Comments No 0 (1 standard drink = 0.6 oz pure alcoho l) Sex Assigned at Date Recorded Not on file documented as of this encounter Miscellaneous Notes Telephone Encounter - Yokasta Forbes - 06/12/2009 9:49 AM TELEHEALTH DIRECTOR Staff Message copied by YOKASTA FORBES on [...] Med Name: levaquin Pharmacy name and location: [facility] Provider they see: lucho Phone number they can be reached at: [phone] Ok to leave a message: no HEALTH DIRECTOR documented in this encounter Plan of Treatment Not on filedocumented as of this encounter Visit Diagnoses Diagnosis Acute maxillary sinusitis - Primary documented in this encounter Care Teams Access Developer Relationship Specialty Start Date End Date Eldon Conway MD PCP - General 07/24/01 02/15/18 [address] [place] [address] documented as of this encounter
--- OUTSIDE RECORDS SUMMARY | 2022-05-14 08:45 | XMS_ITS | Encounter Summary ---
:1955 Author Organization [place] Address [address] [place] [address] Care Team Providers Name Role Phone Eldon Conway MD Primary Care Provider Reason for Visit Reason Comments Sinus Problem pressure, headache, drainage x2 weeks Encounter Details Date Type Department Care Team Description 05/13/2009 Office Visit [facility] Eldon Conway, Acute Maxillary Clinic [place] Sinusitis [address] [place] [address] [phone] Social History Tobacco Use Types Packs/Day Years Used Date Smoking Tobacco: Never Alcohol Use Standard Drinks/Week Comments No 0 (1 standard drink = 0.6 oz pure alcoho l) Sex Assigned at Date Recorded Not on file documented as of this encounter Last Filed Vital Signs Vital Sign Reading Time Taken Comments Blood Pressure 106/72 05/13/2009 11:06 AM WRITING CENTER DIRECTOR Pulse - - Temperature 36.7 ??C (98 ??F) 05/13/2009 11:06 AM WRITING CENTER DIRECTOR Respiratory Rate - - Oxygen Saturation - - Inhaled Oxygen Concentration - - Weight 60.3 kg (133 lb) 05/13/2009 11:06 AM WRITING CENTER DIRECTOR Height 156.2 cm (5' 1.5) 05/13/2009 11:06 AM WRITING CENTER DIRECTOR Body Mass Index 24.72 05/13/2009 11:06 AM WRITING CENTER DIRECTOR documented in this encounter Progress Notes Eldon Conway - 05/13/2009 12:49 PM CST SUBJECTIVE: Danielle Waldrop is a 53 [...] have suggested that the patient push fluids ING CENTER DIRECTOR documented in this encounter Nursing Notes 05/13/2009 [...] sinusitis documented in this encounter Care Teams Protective Services Officer Relationship Specialty Start Date End Date Eldon Conway MD PCP - General 07/24/01 02/15/18 [address] [place] [address] documented as of this encounter
--- OUTSIDE RECORDS SUMMARY | 2022-05-14 08:45 | XMS_ITS | Encounter Summary ---
:1955 Author Organization [facility] Address [address] [place] [address] Care Team Providers Name Role Phone Eldon Conway MD Primary Care Provider Encounter Details Date Type Department Care Team Description 12/03/2008 Operative Report [facility] Bharath Tracy, (Companion) [facility] Results [address] [place] [address] (Wo rk) Social History Tobacco [...] 01/12/2009 15:42 by BHARATH TRACY MD MT: [id number] Name: DANIELLE ROBB MRN: [id number] Account: [id number] : 1955 Procedure Date: 12/03/2008 Document: [id number] cc: Eldon Conway MD documented in this encounter Plan of Treatment Not on filedocumented as of this encounter Visit Diagnoses Not on filedocumented in this encounter Care Teams Eyelet Machine Operator Relationship Specialty Start Date End Date Eldon Conway MD PCP - General 07/24/01 02/15/18 [address] [place] [address] documented as of this encounter
--- OUTSIDE RECORDS SUMMARY | 2022-05-14 08:45 | XMS_ITS | Encounter Summary ---
:1955 Author Organization [facility] Address [address] [place] [address] Care Team Providers Name Role Phone Eldon Conway MD Primary Care Provider Encounter Details Date Type Department Care Team Description 09/28/2007 Therapy Visit [facility] Welch B ACK SYMPTOMS; Orthopedic J, DC SOMAT DYSFUNC SACRAL REG; [facility]-[place] REVIVE WELLNESS SOMAT DYSFUNC LOWER EXTR; [address], [place] [address] [place] PA[facility]-[place] [address] [place] [address] [place], [place] [address] Social History Tobacco Use Types Packs/Day Years Used Date Smoking Tobacco: Never Alcohol Use Standard Drinks/Week Comments No 0 (1 standard drink = 0.6 oz pure alcoho l) Sex Assigned at Date Recorded Not on file documented as of this encounter Progress Notes Amelia Jarrett - 09/28/2007 10:26 AM CDT Visit # 3 Subjective: No change overall. Objective: No change Assessment: 724.8, 739.4, 739.6, 719.45 Plan: SMT Done SI Left-drop piece and side posture Left hip-LAD Therapy Done Type: STM-brief Active Care Therapuetic exercises for core strength for the lower back. Bridging -Lvl 1&2, opp arm/opp leg, medial glute-clam. Added hamstring and IT band stretch, reviewed bridging-lvl 2. Notes/Comments: Recommended she returns to her PCP for a further work-up of her left hip. Possible Dx hip bursitis. May need physical therapy. documented in this encounter Plan of Treatment Not on filedocumented as of this encounter Procedures Procedure Name Priority Date/Time Associated Diagnosis Comme nts [facility] Routine 09/28/2007 10:26 AM Other Back S ymptoms MANIP,EXTRASP W/ MULT CDT Somat Dysfunc Sacra l PROC Reg Somat Dysfunc Lower Extr Joint Pain-Pelvis [facility] Routine 09/28/2007 10:26 AM Other Back S ymptoms MANIP,SPINAL,1-2 CDT Somat Dysfunc Sacral REGIONS Reg Somat Dysfunc Lower Extr Joint Pain-Pelvis documented in this encounter Visit Diagnoses Diagnosis Other symptoms referable to back Nonallopathic lesion of sacral region, n ot elsewhere classified Nonallopathic lesion of lower extremitie s, not elsewhere classified Pain in joint, pelvic region and thigh documented in this encounter Care Teams Echo Vascular Technologist Relationship Specialty Start Date End Date Eldon Conway MD PCP - General 07/24/01 02/15/18 [address] [place] [address] documented as of this encounter
--- OUTSIDE RECORDS SUMMARY | 2022-05-14 08:45 | XMS_ITS | Encounter Summary ---
:1955 Author Organization [facility] Address [address] [place] [address] Care Team Providers Name Role Phone Eldon Conway MD Primary Care Provider Reason for Visit Reason Comments Pre-Op Exam EKG done 11/24/09. Pre Visit Planning - Done Encounter Details Date Type Department Care Team Description 03/05/2010 Office Visit [facility] Leatha Goinsop Gene ral Physical Exam (Primary Dx); Clinic [place] MD Michelle Screening Mammogram [address] [place], [place] [facility] [address] [address] [phone] [facility] [address] [place] [address] (Wo rk) Social History Tobacco Use Types [...] CDT documented in this encounter Progress Notes OniCharlotte reed - 02/27/2010 10:51 AM CDT [place] [address] PRE-OP EVALUATION: Today's date: 03/05/2010 Danielle Waldrop (: 1955) presents for pre-operative evaluation assessment as requested by Dr. Alba. She requires evaluation and anesthesia risk assessment prior to undergoing surgery/procedure for treatment of thyroid nodule removal . Proposed procedure: partial thyroidectomy, possible complete thyroidectomy Date of Surgery/ Procedure: 03/09/10 Time of Surgery/ Procedure: 10:00am Hospital/Surgical Facility: [facility] Primary Physician: Dr Conway Type of [...] further diagnostic evaluation. Signed Electronically by: Betina Goins MD Copy of this evaluation report is provided to requesting physician. Preop Guidelines documented in this encounter Nursing Notes 03/05/2010 10:00 AM CDT >> MALIHA OREILLY FriMar 05, 2010 12:32 PM Preop with EKG faxed to [facility]. Maliha Oreilly CMA >> MALIHA OREILLY FriMar [...] encounter Results [facility] (03/05/2010 10:46 AM CDT) athologist Signature Hemoglobin 13.8 11.7 - 15.7 [facility] g/dL [facility] Specimen Anatomical Collection Method Collection Time Receive d Time (Source) Location / / Volume Laterality 03/05/2010 10:46 03/05/2010 AM CDT 10:48 AM CDT Michelle Goins MD LABORATORY Performing Organization Address City/State/ZIP Code Phon e Number [facility] [address] [place] [address] [facility] documented in this encounter Visit Diagnoses Diagnosis Preop general physical exam - Primary Other specified pre-operative examinatio n Screening mammogram Other screening mammogram documented in this encounter Care Teams Health Care Marketing Specialist Relationship Specialty Start Date End Date Eldon Conway MD PCP - General 07/24/01 02/15/18 [address] [place] [address] documented as of this encounter
--- OUTSIDE RECORDS SUMMARY | 2022-05-14 08:45 | XMS_ITS | Encounter Summary ---
:1955 Author Organization [facility] Address [address] [place] [address] Care Team Providers Name Role Phone Eldon Conway MD Primary Care Provider Encounter Details Date Type Department Care Team Description 12/03/2008 Historic Notes INTERFACED REPORT Interface, Transcript onMD Social History Tobacco Use Types Packs/Day Years Used Date Smoking Tobacco: Never Alcohol Use Standard Drinks/Week Comments No 0 (1 standard drink = 0.6 oz pure alcoho l) Sex Assigned at Date Recorded Not on file documented as of this encounter Progress Notes Interface, Food Broker - 08/26/2010 12:19 AM CDT General Information - How to be Addressed Danielle - Patient Belongings none; family took home - personnel clerks supervisor #1: Artemio - Phone 1: [phone] - Patient's spoken language; Somali or Bilingual communication style Allergies ?? No [...] for Observation), Skin Inspection, Learning Assessment Interface, Food Broker - 08/26/2010 12:18 AM CDT Patient Status - Physical status Stable (s/s of potential complications absent or manageable) - Psychosocial status Stable Discharge Planning - Discharge From: [facility] - Patient Care Unit: Pediatrics [...] Dr Tracy call: - Phone number of [facility] [phone] patient should call: - Other Special Care At home instruction sheet for abdominal surgery Needs: given to patient for home. Don't drive if you are taking narcotics. Follow Up Care - Physician/clinician Follow up with Dr Tracy in 2-3 weeks. name: - Phone Number: Call [phone] to make an appointment. Signatures JOEL BEATTY (RN)[Signed 11:45] Authored: Patient Status, Discharge Planning, Discharge Information, Medications and Prescriptions, Support Services, Special Care Needs and Instructions, Follow Up Care documented in this encounter Plan of Treatment Not on filedocumented as of this encounter Visit Diagnoses Not on filedocumented in this encounter Care Teams Furniture Upholsterer Relationship Specialty Start Date End Date Eldon Conway MD PCP - General 07/24/01 02/15/18 [address] [place] [address] documented as of this encounter
--- OUTSIDE RECORDS SUMMARY | 2022-05-14 08:45 | XMS_ITS | Encounter Summary ---
:1955 Author Organization [place] Address [address] [place] [address] Care Team Providers Name Role Phone Eldon Conway MD Primary Care Provider Encounter Details Date Type Department Care Team Description 12/02/2008 Historic Results INTERFACED REPORT Onur Logan MD [place] [address] Social History Tobacco Use Types Packs/Day Years [...] UA with microscopic (12/02/2008 10:00 PM CDT) [facility] Method Time Signature Source Midstream [facility] Urine Color Urine Straw [facility] Appearance Urine Clear [facility] Glucose Urine Negative NEG mg/dL [facility] Bilirubin Urine Negative NEG [facility] Ketones Urine Negative NEG mg/dL [facility] Specific [place] 1.010 1.003 - MIS[facility] Urine 1.035 Blood [...] 12/02/2008 PM CDT 10:04 PM CDT Oseas Logan MD LAB - URINE ORDERABLES Performing Organization Address City/State/ZIP Code Phon e Number [facility] documented in this encounter Visit Diagnoses Not on filedocumented in this encounter Care Teams Stone Carver Relationship Specialty Start Date End Date Eldon Conway MD PCP - General 07/24/01 02/15/18 [address] [place] [address] documented as of this encounter
--- OUTSIDE RECORDS SUMMARY | 2022-05-14 08:45 | XMS_ITS | Encounter Summary ---
:1955 Author Organization [facility] Address [address] [place] [address]. [place] [address] Care Team Providers Name Role Phone Eldon cShwartz MD Primary Care Provider Reason for Visit Reason Comments Physical physical and pap, patient is fasting Encounter Details Date Type Department Care Team Description 04/14/2008 Office Visit [facility] Eldon Schwartz Routin e Physical Examination (Primary Dx); Clinic Cathy Wadsworth MD Hip Pain; [address] [place] [address] Moles; [place], [place]; [phone] Elevated Cholesterol [phone] Social History Tobacco Use Types Packs/Day Years Used Date Smoking Tobacco: Never Alcohol Use Standard Drinks/Week Comments No 0 (1 standard drink = 0.6 oz pure alcoho l) Sex Assigned at Date Recorded Not on file documented as of this encounter Last Filed Vital Signs Vital Sign Reading Time Taken Comments Blood Pressure 108/70 04/14/2008 9:30 AM FLOOR TECH Pulse 72 04/14/2008 9:30 AM FLOOR TECH Temperature - - Respiratory Rate - - Oxygen Saturation - - Inhaled Oxygen Concentration - - Weight 53.1 kg (117 lb) 04/14/2008 9:30 AM FLOOR TECH Height 158.8 cm (5' 2.5) 04/14/2008 9:30 AM FLOOR TECH Body Mass Index 21.06 04/14/2008 9:30 AM FLOOR TECH documented in this encounter Progress Notes Eldon [...] ok Plan: METRONIDAZOLE 0.75 % VA GEL R TECH documented in this encounter Plan of Treatment Not on filedocumented as of this encounter Procedures Procedure Name Priority Date/Time Associated Comments Diagnosis CL AFF CBC WITH Routine 04/14/2008 10:56 Routine Physical Resu lts for this PLATELETS AM FLOOR TECH Examination procedure are i n the results section. HCL COMPREHENSIVE Routine 04/14/2008 10:56 Routine Physical Re sults for this METABOLIC PANEL AM FLOOR TECH Examination procedure ar e in the results section. HCL TSH W/FREE T4 Routine 04/14/2008 10:56 Routine Physical Re sults for this REFLEX AM FLOOR TECH Examination procedure are i n the results section. CL AFF A.M.A. LIPID Routine 04/14/2008 10:56 Routine Physical Results for this PANEL AM FLOOR TECH Examination procedure are i n the results section. HCL UA MICRO IF Routine 04/14/2008 10:27 Routine Physical Resu lts for this POSITIVE AM FLOOR TECH Examination procedure are i n the results section. CL AFF SURGICAL Routine 04/14/2008 12:00 [place] Results for this PATHOLOGY AM FLOOR TECH procedure are i n the results section. HCL PAP THIN LAYER Routine 04/14/2008 12:00 Routine Physical R esults for this SCREEN AM FLOOR TECH Examination procedure are i n the results section. documented in this encounter Results TSH W/FREE T4 REFLEX (04/14/2008 10:56 AM FLOOR TECH) P athologist Signature TSH 0.77 0.4 - 5.0 [facility] mU/L [facility] Specimen Anatomical Collection Method Collection Time Receive d Time (Source) Location / / Volume Laterality 04/14/2008 10:56 04/14/2008 AM FLOOR TECH 11:02 AM FLOOR TECH Eldon Schwartz MD LABORATORY Performing Organization Address City/State/ZIP Code Phon e Number [facility] [address] [place] [address] [facility] CBC WITH PLATELETS (04/14/2008 10:56 AM FLOOR TECH) P athologist Signature WBC 5.8 4.0 - 11.0 [facility] 10e9/L [facility] RBC Count 4.37 3.8 - 5.2 [facility] 10[facility] Hemoglobin 13.7 11.7 - [facility] 15.7 g/dL [facility] Hematocrit 41.4 35.0 - [facility] 47.0 % [facility] MCV 95 78 - 100 [facility] fl [facility] MCH 31.4 26.5 - [facility] [facility] 33.0 pg [facility] MCHC 33.1 31.5 - [facility] 36.5 g/dL [facility] RDW 12.3 10.0 - [facility] 15.0 % [facility] Platelet Count 262 150 - 450 [facility] 10e9/L [facility] Specimen Anatomical Collection Method Collection Time Receive d Time (Source) Location / / Volume Laterality 04/14/2008 10:56 04/14/2008 AM FLOOR TECH 11:02 AM FLOOR TECH Eldon Schwartz MD LABORATORY Performing Organization Address City/State/ZIP Code Phon e Number [facility] [address] [place] [address] [facility] (ABNORMAL) A.M.A. LIPID PANEL (04/14/2008 10:56 AM FLOOR TECH) athologist Signature Cholesterol 240 (H) 0 - 200 [facility] mg/dL CLINIC LAB Comment: LDL Cholesterol is the primary guide to therapy: LDL-cholesterol goal in high risk patients is <100 mg/dL and in very high risk patients is <70 mg/dL. The NCEP recommends further evaluation of: patients with cholesterol <200 mg/dL if additional risk factors are present, cholesterol >240 mg/dL, triglycerides >150 mg/dL, or HDL <40 mg/dL. Triglycerides 82 0 - 150 mg/dL [facility] HDL Cholesterol 78 50 - 110 mg/dL [facility] LDL Cholesterol Calculated 145 (H) 0 - 129 mg/dL [facility] Comment: LDL Cholesterol is the primary guide to therapy: LDL-cholesterol goal in high risk patients is <100 mg/dL and in very high risk patients is <70 mg/dL. VLDL-Cholesterol 16 0 - 30 mg/dL [facility] Cholesterol/HDL Ratio 3.1 0.0 - 5.0 [facility] Specimen Anatomical Collection Method Collection Time Receive d Time (Source) Location / / Volume Laterality 04/14/2008 10:56 04/14/2008 AM FLOOR TECH 11:02 AM FLOOR TECH Eldon Schwartz MD LABORATORY Performing Organization Address City/State/ZIP Code Phon e Number [facility] [address] [place] [address] [facility] A.M.A. COMPREHENSIVE MET.PANEL (04/14/2008 10:56 AM FLOOR TECH) P athologist Signature Sodium 143 133 - 144 [facility] mmol/L [facility] Potassium 4.6 3.4 - 5.3 [facility] mmol/L CLINIC LAB Chloride 103 94 - 109 [facility] mmol/L [facility] Carbon Dioxide 28 20 - 32 [facility] mmol/L CLINIC LAB Anion Gap 12 6 - 17 [facility] mmol/L CL[facility]IC LAB Glucose 96 60 - 99 [facility] mg/dL CLINIC LAB Urea Nitrogen 14 7 - 30 [facility] mg/dL [facility] Creatinine 0.71 0.52 - [facility] 1.04 mg/dL CLINIC LAB Comment: New IDMS-traceable calibration beginning 10/08/07 GFR Estimate 86 >60 mL/min/1.7m2 [place] [facility] GFR Estimate If Black >90 >60 mL/min/1.7m2 F [facility] Calcium 9.7 8.5 - 10.4 mg/dL [facility] N [facility] Bilirubin Total 0.6 0.2 - 1.3 mg/dL [facility] Albumin 4.4 3.9 - 5.1 g/dL [facility] Comment: Reference range changed on 02/08. Protein Total 7.3 6.8 - 8.8 g/dL [place] [facility] Comment: As of 07, reference range reflects plasma specimen type. Alkaline Phosphatase 62 40 - 150 U/L [facility] ALT 27 0 - 50 U/L [facility] CLIN IC LAB AST 25 0 - 45 U/L [facility] CLIN IC LAB Specimen Anatomical Collection Method Collection Time Receive d Time (Source) Location / / Volume Laterality 04/14/2008 10:56 04/14/2008 AM FLOOR TECH 11:02 AM FLOOR TECH Eldon Schwartz MD LABORATORY Performing Organization Address City/[facility]/ZIP Code Phon e Number [facility] [address] [place] [address] [facility] UA MICRO IF POSITIVE (04/14/2008 10:27 AM FLOOR TECH) [facility] gist Method Time Signature Color Urine Yellow [facility] Appearance Urine Clear [facility] Glucose Urine Negative NEG mg/dL [facility] Bilirubin Urine Negative NEG [facility] Ketones Urine Negative NEG mg/dL [facility] Specific [place] 1.020 1.003 - [place] Urine 1.035 [facility] Blood Urine Negative NEG [facility] pH Urine 5.5 5.0 - 7.0 [place] pH [facility] Protein Albumin Negative NEG mg/dL [place] Urine [facility] Urobilinogen 0.2 0.2 - 1.0 [place] Urine EU/dL [facility] Nitrite Urine Negative NEG [facility] Leukocyte Negative NEG [place] Esterase Urine [facility] Source Midstream [place] Urine [facility] Specimen Anatomical Collection Method Collection Time Receive d Time (Source) Location / / Volume Laterality 04/14/2008 10:27 04/14/2008 AM FLOOR TECH 10:29 AM FLOOR TECH Eldon Schwartz MD LABORATORY Performing Organization Address [facility]/ZIP Code Phon e Number [facility] [address] [place] [address] [facility] SURGICAL PATHOLOGY (04/14/2008 12:00 AM FLOOR TECH) Component Value Ref Test Analysis Performed At [facility] Range Method Time Signature Joshua Report Patient Name: DANIELLE ROBB MR#: [id number] Specimen #: [id number] Collected: 04/14/2008 Received: 04/14/2008 Reported: 04/15/2008 13:59 [...] ??MGP/eric MICROSCOPIC: Microscopic examination was performed. MGP/kd 04-15-08 TESTING LAB LOCATION: [address] [place], [place] ??[address] COLLECTION SITE: Client: [facility] Location: CRFP (R) Specimen (Source) Anatomical Collection Method Collection Time Re ceived Time Location / / Volume Laterality 04/14/2008 04/14/2008 3:21 PM FLOOR TECH Eldon Schwartz MD LABORATORY Performing Organization Address City/State/ZIP Code Phon e Number [facility] A THIN LAYER PAP SCREEN (04/14/2008 12:00 AM FLOOR TECH) Component Value Ref Test Analysis Performed At [facility] Range Method Time Signature PAP NIL COPATH Copath Report COPATH Patient Name: DANIELLE ROBB MR#: [id number] Specimen #: [id number] Collected: 04/14/2008 Received: 04/15/2008 Reported: 04/18/2008 13:08 [...] CHEKO Barker (ASCP) Processed and screened at [facility] CLINICAL HISTORY: Hysterectomy: partial, Previous normal pap Date of Last Pap: 1/30/07, TESTING LAB LOCATION: [facility] [address] [place], [place] ??[address] COLLECTION SITE: Client: ??[facility] Location: CRFP (R) Specimen (Source) Anatomical Collection Method Collection Time Re ceived Time Location / / Volume Laterality 04/14/2008 04/15/2008 9:28 AM FLOOR TECH Eldon Schwartz MD LABORATORY Performing Organization Address City/State/ZIP Code Phon e Number [facility] documented in this encounter Visit Diagnoses Diagnosis Routine physical examination - Primary Routine general medical examination at a [facility] care facility Hip pain Pain in joint, pelvic region and thigh Moles Benign neoplasm of skin, site unspecifie d Vaginitis Vaginitis and vulvovaginitis, unspecifie d Elevated cholesterol Pure hypercholesterolemia documented in this encounter Care Teams Car Shakeout Operator Relationship Specialty Start Date End Date Eldon Schwartz MD PCP - General 07/24/01 02/15/18 [address] [place] [address] documented as of this encounter
--- OUTSIDE RECORDS SUMMARY | 2022-05-14 08:46 | XMS_ITS | Encounter Summary ---
:1955 Author Organization [facility] Address [address] [place] [address]. [place] [address] Care Team Providers Name Role Phone Eldon Conway MD Primary Care Provider Reason for Visit Reason Comments Sinus Problem facial pain Encounter Details Date Type Department Care Team Description 02/20/2005 Office Visit [facility] Man, ACUTE NASO PHARYNGITIS [facility] [place] MD Eldon (Primary Dx) [id number] [place] [phone] [facility] [phone] [place] [address] Social History Tobacco Use Types Packs/Day Years [...] imary documented in this encounter Care Teams Embossing Clerk Relationship Specialty Start Date End Date Eldon Conway MD PCP - General 07/24/01 02/15/18 [address] [place] [address] documented as of this encounter
--- OUTSIDE RECORDS SUMMARY | 2022-05-14 08:46 | XMS_ITS | Encounter Summary ---
:1955 Author Organization [facility] Address [address] [place] [address] Care Team Providers Name Role Phone Eldon Conway MD Primary Care Provider Reason for Referral - Closed Specialty Diagnoses / Procedures Referred By Contact Refer red To Contact Diagnoses Routine general medical examination at a [facility] care facility Eldon Conway MD [address] [place] [address] 66 [phone] Referral ID Status Reason Start Date Expiration Date Visits Requ ested Visits Authorized [id number] Closed 08/19/2005 06/08/2011 1 1 RAME TECHNICIAN - Closed Specialty Diagnoses / Procedures Referred By Contact Refer red To Contact Diagnoses Other dyspnea and respiratory abnormality Eld[place] Conway [place] [id number] [place] [address] 23 [phone] Referral ID Status Reason Start Date Expiration Date Visits Requ ested Visits Authorized [id number] Closed 08/19/2005 06/08/2011 1 1 RAME TECHNICIAN Reason for Visit Reason Comments Consult ?? sleep apnea Pain joint pain Encounter Details Date Type Department Care Team Description 08/19/2005 Office Visit [facility] Eldon Conway, RESPIR ATORY ABNORM NEC; Clinic [place] MD JOINT PAIN-MULT JTS; [address] [place] [address] ACUTE SEROUS OTITIS MEDIA; [place], [place] ROUTINE MEDICAL EXAM [phone] Social History Tobacco Use Types Packs/Day Years Used Date Smoking Tobacco: Never Alcohol Use Standard Drinks/Week Comments No 0 (1 standard drink = 0.6 oz pure alcoho l) Sex Assigned at Date Recorded Not on file documented as of this encounter Last Filed Vital Signs Vital Sign Reading Time Taken Comments Blood Pressure 130/70 08/19/2005 2:30 PM AIRFRAME TECHNICIAN Pulse 88 08/19/2005 2:30 PM AIRFRAME TECHNICIAN Temperature - - Respiratory Rate - - Oxygen Saturation - - Inhaled Oxygen Concentration - - Weight 61.7 kg (136 lb) 08/19/2005 2:30 PM AIRFRAME TECHNICIAN Height 159.4 cm (5' 2.75) 08/19/2005 2:30 PM AIRFRAME TECHNICIAN Body Mass Index 24.28 08/19/2005 2:30 PM AIRFRAME TECHNICIAN documented in this encounter Progress Notes Eldon Conway - 08/19/2005 2:49 PM CST SUBJECTIVE: Danielle Waldrop, a 50 year old female scheduled an appointment to discuss the following issues: RESPIRATORY ABNORM NEC; SNORING WITH PERIODIC BRATHING JOINT PAIN-MULJairon JTS; NO FAMILY HX OF JOINT PROBLEMS [...] MEDIA Note: IMPROVING Plan: CONTINUE PRESENT MEDICATIN RAME TECHNICIAN documented in this encounter Nursing Notes 08/19/2005 2:30 PM CST >> YOKASTA FORBES 08/19/2005 2:26 pm Patient presents with: Consult - ?? sleep apnea Pain - joint pain Initial BP 130/70 Pulse 88 Ht 5' 2.75 (1.59m) Wt 136 lbs (61.7kg) LMP Hysterectomy Body mass index is 24.28 kg/(m^2).. BP completed using cuff size: regular Yokasta Fobres LICENSED PLUMBER documented in this encounter Plan of Treatment Not on filedocumented as of this encounter Procedures Procedure Name Priority Date/Time Associated Comments Diagnosis HCL RHEUMATOID FACTOR Routine 08/19/2005 2:41 PM Joint Pain-Mu lt Jts Results for this AIRFRAME TECHNICIAN procedure are i n the results section. CL AFF ANTINUCLEAR Routine 08/19/2005 2:41 PM Joint Pain-Mult Jts Results for this ANTIBODIES AIRFRAME TECHNICIAN procedure are i n the results section. HCL SED RATE (ESR) Routine 08/19/2005 2:41 PM Joint Pain-Mult Jts Results for this AIRFRAME TECHNICIAN procedure are i n the results section. documented in this encounter Results ANTINUCLEAR ANTIBODIES (08/19/2005 2:41 PM AIRFRAME TECHNICIAN) P athologist Signature [place] Screen by 1.0 [facility] Comment: Interpretation: ??Weakly Positive Follow-up testing is not recommended un less clinically indicated. ??[place] samples are retained in the Protein Lab for 30 days. ??Please contact the laboratory to request additional tests. Specimen Anatomical Collection Method Collection Time Receive d Time (Source) Location / / Volume Laterality 08/19/2005 2:41 PM 6 2:44 AIRFRAME TECHNICIAN PM AIRFRAME TECHNICIAN Eldon Conway MD LABORATORY Performing Organization Address City/[facility]/ZIP Code Phon e Number [facility] [address] [place] [address] [facility] RHEUMATOID FACTOR (08/19/2005 2:41 PM AIRFRAME TECHNICIAN) P athologist Signature Rheumatoid <20 0 - 20 [facility] Factor IU/mL [facility] Specimen Anatomical Collection Method Collection Time Receive d Time (Source) Location / / Volume Laterality 08/19/2005 2:41 PM 6 2:44 AIRFRAME TECHNICIAN PM AIRFRAME TECHNICIAN Eldon Conway MD LABORATORY Performing Organization Address City/[facility]/ZIP Code Phon e Number [address] [address] [facility] SED RATE, AUTO (08/19/2005 2:41 PM AIRFRAME TECHNICIAN) P athologist Signature Sed Rate 9 0 - 30 mm/h [facility] Specimen Anatomical Collection Method Collection Time Receive d Time (Source) Location / / Volume Laterality 08/19/2005 2:41 PM 6 2:44 AIRFRAME TECHNICIAN PM AIRFRAME TECHNICIAN Eldon Conway MD LABORATORY Performing Organization Address City/[facility]/ZIP Code Phon e Number [facility] [address] [place] [address] [facility] documented in this encounter Visit Diagnoses Diagnosis Other dyspnea and respiratory abnormalit y Pain in joint, multiple sites Acute serous otitis media Routine general medical examination at a health care facility documented in this encounter Care Teams Hotel Front Desk Clerk Relationship Specialty Start Date End Date Eldon Conway MD PCP - General 07/24/01 02/15/18 [address] [place] [address] documented as of this encounter
--- OUTSIDE RECORDS SUMMARY | 2022-05-14 08:46 | XMS_ITS | Encounter Summary ---
:1955 Author Organization [facility] Address [address] [place] [address] Care Team Providers Name Role Phone Eldon Schwartz MD Primary Care Provider Reason for Visit Reason Onset Date Comments Referral 01/17/2004 Pt requesting referr al Encounter Details Date Type Department Care Team Description 01/17/[address] [facility] Eldon Schwartz Referr al (Pt requesting Clinic Cathy Wadsworth MD referral) [address] [place] [id number] Social History Tobacco Use Types Packs/Day Years Used Date Smoking Tobacco: Never Alcohol Use Standard Drinks/Week Comments No 0 (1 standard drink = 0.6 oz pure alcoho l) Sex Assigned at Date Recorded Not on file documented as of this encounter Miscellaneous Notes Telephone Encounter - 01/17/2004 1:45 PM CDT >> LETICIA COLEMAN FriJan 18, 2004 2:47 PM Patient given number for MT LUNG-patient will schedule-Leticia Niño >> ELDON SCHWARTZ FriJan 17, 2004 2:32 PM please send to pulmonary >> DENISE GALDAMEZ FriJan 17, 2004 1:49 PM Pt calling, states she continues to have bad cough with thick white phlegm, gagging with cough in wh ich she needs to catch her breath. Pt was told to call back if cough didn't improve and that Dr. Schwartz would refer her to a specialist. Please call pt back at the above number. Thanks. Christen Galdamez RN documented in this encounter Plan of Treatment Not on filedocumented as of this encounter Visit Diagnoses Not on filedocumented in this encounter Care Teams Design Leader Relationship Specialty Start Date End Date Eldon Schwartz MD PCP - General 07/24/01 02/15/18 [address] [place] [address] documented as of this encounter
--- OUTSIDE RECORDS SUMMARY | 2022-05-14 08:46 | XMS_ITS | Encounter Summary ---
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 Encounter Details Date Type Department Care Team Description 07/08/2006 Office Visit [facility] Eldon Schwartz [facility] Cathy Wadsworth MD (Primary Dx) [address] [place] [phone] Social History Tobacco Use Types Packs/Day Years Used Date Smoking Tobacco: Never Alcohol Use Standard Drinks/Week Comments No 0 (1 standard drink = 0.6 oz pure alcoho l) Sex Assigned at Date Recorded Not on file documented as of this encounter Last Filed Vital Signs Vital Sign Reading Time Taken Comments Blood Pressure 100/60 07/08/2006 8:00 AM SUPERVISOR AREA Pulse 68 07/08/2006 8:00 AM SUPERVISOR AREA Temperature - - Respiratory Rate - - Oxygen Saturation - - Inhaled Oxygen Concentration - - Weight 53.8 kg (118 lb 8 oz) 07/08/2006 8:00 AM SUPERVISOR AREA Height 157.5 cm (5' 2) 07/08/2006 8:00 AM SUPERVISOR AREA Body Mass Index 21.67 07/08/2006 8:00 AM SUPERVISOR AREA documented in this encounter Progress Notes Melvi Echols - 07/08/2006 10:09 AM SUPERVISOR AREA Addended by: MELVI ECHOLS on: 07/08/2006 10:09:26 AM Modules accepted: Orders RVISOR AREA Eldon Schwartz - 07/08/2006 8:41 AM CST [...] Years of Education: 16 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 Tobacco Use: [...] appointment if any problems or failureto improve. 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 BP completed using cuff size: regular Yokasta Forbes MANAGER COMMISSION documented in this encounter Plan of Treatment Not on filedocumented as of this encounter Procedures Procedure Name Priority Date/Time Associated Comments Diagnosis CL AFF N.GONORRHOEAE, Routine 07/08/2006 10:06 Routine Medical Results for this DNA AMP PROBE AM SUPERVISOR AREA Exam procedure are in the results section. CL AFF CHLMYD TRACH, Routine 07/08/2006 10:06 Routine Medical Results for this DNA, AMP PROBE AM SUPERVISOR AREA Exam procedure are in the results section. HCL WET PREP Routine 07/08/2006 10:06 Routine Medical Results for this AM SUPERVISOR AREA Exam procedure are i n the results section. HCL UA MICRO IF Routine 07/08/2006 8:42 AM Routine Medical Res ults for this POSITIVE SUPERVISOR AREA Exam procedure are i n the results section. CL AFF CBC WITH Routine 07/08/2006 8:42 AM Routine Medical Res ults for this PLATELETS SUPERVISOR AREA Exam procedure are i n the results section. HCL COMPREHENSIVE Routine 07/08/2006 8:42 AM Routine Medical R esults for this METABOLIC PANEL SUPERVISOR AREA Exam procedure ar e in the results section. HCL TSH W/FREE T4 Routine 07/08/2006 8:42 AM Routine Medical R esults for this REFLEX SUPERVISOR AREA Exam procedure are i n the results section. CL AFF A.M.A. LIPID Routine 07/08/2006 8:42 AM Routine Medical Results for this PANEL SUPERVISOR AREA Exam procedure are i n the results section. HCL PAP THIN LAYER Routine 07/08/2006 12:00 Routine Medical Re sults for this SCREEN AM SUPERVISOR AREA Exam procedure are i n the results section. documented in this encounter Results A WET PREP (07/08/2006 10:06 AM SUPERVISOR AREA) [facility] RallyCause Method Time Signature Specimen [facility] LAB Wet Prep No yeast seen [place] No Trichomonas seen [facility] No clue cells seen CLINIC LAB Report status FINAL [id number] [facility] LAB Specimen Anatomical Collection Method Collection Time Receive d Time (Source) Location / / Volume Laterality 07/08/2006 10:06 07/08/2006 AM SUPERVISOR AREA 10:11 AM SUPERVISOR AREA Eldon Schwartz MD LABORATORY Performing Organization Address City/State/ZIP Code Phon e Number [facility] [address] [place] [address] [facility] LAB N.GONORRHOEAE, DNA, (GC) (07/08/2006 10:06 AM SUPERVISOR AREA) Component Value Ref Test Analysis Performed At [facility] RallyCause Range Method Time Signature Specimen Vagina [facility] CAMPUS LABS N Gonorrhea Negative for N. gonorrhoeae rRNA by carton forming machine helper mediated amplification. [facility] PCR A negative result by transc ription mediated amplification does not preclude the [place] presence of N. gonorrhoeae infection because re sults are dependent on proper CAMPUS LABS and adequate collection, absence of inhibitors, and suffici ent rRNA to be detected. Specimen Anatomical Collection Method Collection Time Receive d Time (Source) Location / / Volume Laterality 07/08/2006 10:06 07/08/2006 AM SUPERVISOR AREA 10:10 AM SUPERVISOR AREA Eldon Schwartz MD LABORATORY Performing Organization Address City/State/ZIP Code Phon e Number [facility] [address] LABS CHLMYD TRACH, DNA, AMP PROBE (07/08/2006 10:06 AM SUPERVISOR AREA) Component Value Ref Test Analysis Performed At [facility] Range Method Time Signature Specimen Vagina [facility] LABS Chlamydia Negative for C. trachomatis rRNA by carton forming machine helper mediated amplification. [facility] Trachomatis A negative result by transc ription mediated amplification does not preclude the [place] PCR presence of C. trachomatis infection because results are dependent on proper CAMPUS LABS and adequate collection, absence of inhibitors, and suffici ent rRNA to be detected. Specimen Anatomical Collection Method Collection Time Receive d Time (Source) Location / / Volume Laterality 07/08/2006 10:06 07/08/2006 AM SUPERVISOR AREA 10:10 AM SUPERVISOR AREA Eldon Schwartz MD LABORATORY Performing Organization Address City/[facility]/ZIP Code Phon e Number [facility] [address] LABS (ABNORMAL) UA MICRO IF POSITIVE (07/08/2006 8:42 AM SUPERVISOR AREA) [facility] Method Time Signature Color Urine Yellow [facility] LAB Appearance Urine Clear [facility] LAB Glucose Urine Negative NEG mg/dL [facility] LAB Bilirubin Urine Negative NEG [facility] LAB Ketones Urine Trace (A) NEG mg/dL [facility] LAB Specific [place] 1.025 1.003 - [place] Urine 1.035 [facility] LAB Blood Urine Negative NEG [facility] LAB pH Urine 5.5 5.0 - 7.0 [place] pH [facility] LAB Protein Albumin Negative NEG mg/dL [place] Urine [facility] LAB Urobilinogen 0.2 0.2 - 1.0 [place] Urine EU/dL [facility] LAB Nitrite Urine Negative NEG [facility] LAB Leukocyte Negative NEG [place] Esterase Urine [facility] Source Midstream [place] Urine [facility] LAB Specimen Anatomical Collection Method Collection Time Receive d Time (Source) Location / / Volume Laterality 07/08/2006 8:42 AM 7 8:47 SUPERVISOR AREA AM SUPERVISOR AREA Eldon Schwartz MD LABORATORY Performing Organization Address City/[facility]/ZIP Code Phon e Number [facility] [phone] [place] [address] [facility] LAB CBC WITH PLATELETS (07/08/2006 8:42 AM SUPERVISOR AREA) P athologist Signature WBC 4.4 4.0 - 11.0 [place] 10e9/L [facility] LAB RBC Count 4.60 3.8 - 5.2 [place] 10e12/L [facility] LAB Hemoglobin 14.4 11.7 - [place] 15.7 g/dL [facility] LAB Hematocrit 42.6 35.0 - [place] 47.0 % [facility] LAB MCV 93 78 - 100 [place] fl [facility] LAB MCH 31.3 26.5 - [place] 33.0 pg [facility] LAB MCHC 33.8 32.0 - [place] 36.0 g/dL [facility] LAB RDW 12.2 10.0 - [place] CEDAR 15.0 % [facility] Platelet Count 225 150 - 450 [facility] Specimen Anatomical Collection Method Collection Time Receive d Time (Source) Location / / Volume Laterality 07/08/2006 8:42 AM 7 8:47 SUPERVISOR AREA AM SUPERVISOR AREA Eldon Schwartz MD LABORATORY Performing Organization Address City/[facility]/ZIP Code Phon e Number [facility] [id number] [place] [address] [facility] TSH W/FREE T4 REFLEX (07/08/2006 8:42 AM SUPERVISOR AREA) P athologist Signature TSH 1.39 0.4 - 5.0 [place] [facility]L [facility] LAB Specimen Anatomical Collection Method Collection Time Receive d Time (Source) Location / / Volume Laterality 07/08/2006 8:42 AM 7 8:47 SUPERVISOR AREA AM SUPERVISOR AREA Eldon Schwartz MD LABORATORY Performing Organization Address City/[facility]/ZIP Code Phon e Number [facility] [address] [place] [address] [facility] LAB (ABNORMAL) A.M.A. LIPID PANEL (07/08/2006 8:42 AM SUPERVISOR AREA) P athologist Signature Cholesterol 274 (H) 0 - 200 [facility] mg/dL CL[facility] LAB Comment: LDL Cholesterol is the primary guide to therapy: LDL-cholesterol goal in high risk patients is <100 mg/dL and in very high risk patients is <70 mg/dL. The NCEP recommends further evaluation of: patients with cholesterol <200 mg/dL if additional risk factors are present, cholesterol >240 mg/dL, triglycerides >150 mg/dL, or HDL <40 mg/dL. Triglycerides 120 0 - 150 mg/dL [facility] LAB HDL Cholesterol 80 50 - 110 mg/dL [facility] LAB LDL Cholesterol Calculated 171 (H) 0 - 129 mg/dL [facility] LAB Comment: LDL Cholesterol is the primary guide to therapy: LDL-cholesterol goal in high risk patients is <100 mg/dL and in very high risk patients is <70 mg/dL. VLDL-Cholesterol 24 0 - 30 mg/dL [facility] LAB Cholesterol/HDL Ratio 3.5 0.0 - 5.0 [facility] LAB Specimen Anatomical Collection Method Collection Time Receive d Time (Source) Location / / Volume Laterality 07/08/2006 8:42 AM 7 8:47 SUPERVISOR AREA AM SUPERVISOR AREA Eldon Schwartz MD LABORATORY Performing Organization Address City/State/ZIP Code Phon e Number [facility] [address] [place] [address] [facility] LAB (ABNORMAL) A.M.A. COMPREHENSIVE MET.PANEL (07/08/2006 8:42 AM SUPERVISOR AREA) P athologist Signature Sodium 145 (H) 133 - 144 [place] mmol/L [facility] LAB Potassium 3.8 3.4 - 5.3 [place] mmol/L [facility] LAB Chloride 104 94 - 109 [place] mmol/L [facility] LAB Carbon Dioxide 27 20 - 32 [place] mmol/L [facility] LAB Anion Gap 14 6 - 17 [place] mmol/L [facility] LAB Glucose 101 60 - 110 [place] mg/dL [facility] LAB Urea Nitrogen 16 7 - 30 [place] mg/dL [facility] LAB Creatinine 0.90 0.60 [facility] 1.30 mg/dL [facility] LAB GFR Estimate 70 >60 [place] mL/min/1.7 [facility] m2 LAB GFR Estimate If 85 >60 [place] Black mL/min/1.7 [facility] m2 LAB Comment: Stages of Chronic Kidney [...] studies. Calcium 9.9 8.5 - 10.4 mg/dL [facility] LAB Bilirubin Total 0.5 0.2 - 1.3 mg/dL [facility] LAB Albumin 4.7 (H) 3.3 - 4.6 g/dL [facility] LAB Protein Total 8.1 6.0 - 8.2 g/dL [place] [facility] LAB Alkaline Phosphatase 69 40 - 150 U/L [facility] EW [facility] ALT 28 0 - 50 U/L [facility] CLIN IC LAB AST 27 0 - 45 U/L [facility] CLIN IC LAB Specimen Anatomical Collection Method Collection Time Receive d Time (Source) Location / / Volume Laterality 07/08/2006 8:42 AM 7 8:47 SUPERVISOR AREA AM SUPERVISOR AREA Eldon Schwartz MD LABORATORY Performing Organization Address City/State/ZIP Code Phon e Number [facility] [address] [place] [address] [facility] LAB A THIN LAYER PAP SCREEN (07/08/2006 12:00 AM SUPERVISOR AREA) Component Value Ref Test Analysis Performed At [facility] Range Method Time Signature PAP NIL COP[place] Copath Report COPATH Patient Name: DANIELLE ROBB MR#: [id number] Specimen #: [id number] Collected: 07/08/2006 Received: 07/08/2006 Reported: 07/10/2006 13:45 [...] CHEKO Barker (ASCP) Processed and screened at [facility] CLINICAL HISTORY: Hysterectomy, Previous normal pap Date of Last Pap: 05-16-05, TESTING LAB LOCATION: [address] ??[id number] COLLECTION SITE: Client: ??[facility] Location: [facility] (R) Specimen (Source) Anatomical Collection Method Collection Time Re ceived Time Location / / Volume Laterality 07/08/2006 07/08/2006 2:48 PM SUPERVISOR AREA Eldon Schwartz MD LABORATORY Performing Organization Address City/State/ZIP Code Phon e Number [place] documented in this encounter Visit Diagnoses Diagnosis Routine general medical examination at a health care facility - Primary documented in this encounter Care Teams Industrial Machine Operator Relationship Specialty Start Date End Date Eldon Schwartz MD PCP - General 07/24/01 02/15/18 [address] [place] [address] documented as of this encounter
--- OUTSIDE RECORDS SUMMARY | 2022-05-14 08:46 | XMS_ITS | Encounter Summary ---
:1955 Author Organization [facility] Address [address] [place] [address] Care Team Providers Name Role Phone Eldon Conway MD Primary Care Provider Encounter Details Date Type Department Care Team Description 09/14/2007 Therapy Visit [facility] B ACK SYMPTOMS; Orthopedic J, DC SOMAT DYSFUNC SACRAL REG; Care-[place] o REVIVE WELLNESS SOMAT DYSFUNC LOWER EXTR; [address], [place] [address] [place] [facility]-[place] [address] [place] [address] [place] [address] [place], [place] [id number] Social History Tobacco Use Types Packs/Day Years Used Date Smoking Tobacco: Never Alcohol Use Standard Drinks/Week Comments No 0 (1 standard drink = 0.6 oz pure alcoho l) Sex Assigned at Date Recorded Not on file documented as of this encounter Progress Notes Amelia Jarrett - 09/14/2007 1:51 PM CDT Visit # 1 Subjective: See initial evaluation:09/14/07 Oswestry score today 40 lowback. Pain scale 4/10. Objective: See initial evaluation: 09/14/07. Assessment: 724.8, 739.4, 739.6, 719.45 Plan: SMT Done SI Left-drop piece and side posture, T5, T6 Left hip-LAD Therapy Done Type: STM-brief Active Care Therapuetic exercises for core strength for the lower back. Bridging -Lvl 1&2, opp arm/opp leg, medial glute-clam. Notes/Comments Patient reported post-treatment reduction of their symptoms and tolerated the intial visit well. I discussed side effects and risks of treatment with the patient today. TREATMENT PLAN: 4-6 visits. 1-2x per week. GOALS: able to walk with out pain. Able to sleep with out LBP and leg pain. documented in this encounter Plan of Treatment Not on filedocumented as of this encounter Procedures Procedure Name Priority Date/Time Associated Diagnosis Comme nts [facility] CH[facility]OPRA Routine 09/14/2007 1:53 PM Other Back Sy mptoms MANIP,EXTRASP W/ MULT CDT Somat Dysfunc Sacra l PROC Reg Somat Dysfunc Lower Extr Joint Pain-Pelvis [facility] Routine 09/14/2007 1:53 PM Other Back Sy mptoms MANIP,SPINAL,1-2 REGIONS CDT Somat Dysfunc Sa cral Reg Somat Dysfunc Lower Extr Joint Pain-Pelvis [facility] THERAPEUTIC Routine 09/14/2007 1:53 PM Other Back Sy mptoms EXERCISES CDT Somat Dysfunc Sacral Reg Somat Dysfunc Lower Extr Joint Pain-Pelvis documented in this encounter Visit Diagnoses Diagnosis Other symptoms referable to back Nonallopathic lesion of sacral region, n ot elsewhere classified Nonallopathic lesion of lower extremitie s, not elsewhere classified Pain in joint, pelvic region and thigh documented in this encounter Care Teams Station Cleaning Porter Relationship Specialty Start Date End Date Eldon Conway MD PCP - General 07/24/01 02/15/18 [address] [place] [address] documented as of this encounter
--- OUTSIDE RECORDS SUMMARY | 2022-05-14 08:46 | XMS_ITS | Encounter Summary ---
:1955 Author Organization [place] Address [address] [place] [address] Care Team Providers Name Role Phone Eldon Conway MD Primary Care Provider Reason for Referral Specialty Diagnoses / Procedures Referred By Contact Refer red To Contact Eldon Conway [place] [id number] [place] [phone] Referral ID Status Reason Start Date Expiration Date Visits Requ ested Visits Authorized Encounter Details Date Type Department Care Team Description 09/10/2005 Orders Only [facility] Eldon Conway, WIN SIS NOT YET Clinic [place] MD DEFINED (Primary Dx) [id number] [facility] [id number] [place] [phone] Social History Tobacco Use Types Packs/Day Years Used Date Smoking Tobacco: Never Alcohol Use Standard Drinks/Week Comments No 0 (1 standard drink = 0.6 oz pure alcoho l) Sex Assigned at Date Recorded Not on file documented as of this encounter Plan of Treatment Not on filedocumented as of this encounter Procedures Procedure Name Priority Date/Time Associated Diagnosis Comme nts ZZ CONSULT NEUROLOGY Routine 09/10/2005 DIAGNOSIS NOT YET DEFINED documented in this encounter Results CONSULT NEUROLOGY (09/10/2005) Specimen (Source) Anatomical Location Collection Method / Collectio n Time Received Time / Laterality Volume 09/10/2005 Narrative This result has an attachment that is no t available. Eldon Conway MD REFERRAL documented in this encounter Visit Diagnoses Diagnosis DIAGNOSIS NOT YET DEFINED - Primary documented in this encounter Care Teams Doll Wigs Hackler Relationship Specialty Start Date End Date Eldon Conway MD PCP - General 07/24/01 02/15/18 [address] [place] [address] documented as of this encounter
--- OUTSIDE RECORDS SUMMARY | 2022-05-14 08:46 | XMS_ITS | Encounter Summary ---
:1955 Author Organization [place] Address [address] [place] [address] Care Team Providers Name Role Phone Eldon Conway MD Primary Care Provider Reason for Visit Reason Comments Pain right leg pain Encounter Details Date Type Department Care Team Description 09/03/2005 Office Visit [facility] Eldon Conway, SKIN D [facility] Ananth GRAYSON (Primary Dx) [address] [place] [phone] [phone] Social History Tobacco Use Types Packs/Day Years Used Date Smoking Tobacco: Never Alcohol Use Standard Drinks/Week Comments No 0 (1 standard drink = 0.6 oz pure alcoho l) Sex Assigned at Date Recorded Not on file documented as of this encounter Last Filed Vital Signs Vital Sign Reading Time Taken Comments Blood Pressure 100/60 09/03/2005 1:30 PM WIRED SWEATBAND CUTTER Pulse 80 09/03/2005 1:30 PM WIRED SWEATBAND CUTTER Temperature - - Respiratory Rate - - Oxygen Saturation - - Inhaled Oxygen Concentration - - Weight 61.7 kg (136 lb) 09/03/2005 1:30 PM WIRED SWEATBAND CUTTER Height 158.1 cm (5' 2.25) 09/03/2005 1:30 PM WIRED SWEATBAND CUTTER Body Mass Index 24.68 09/03/2005 1:30 PM WIRED SWEATBAND CUTTER documented in this encounter Progress Notes Eldon [...] completed using cuff size: regular Yokasta Forbes STOPPERER ASSEMBLER documented in this encounter Plan of Treatment Not on filedocumented as of this encounter Visit Diagnoses Diagnosis Other specified disorder of skin - Prima ry documented in this encounter Care Teams Cane Burner Relationship Specialty Start Date End Date Eldon Conway MD PCP - General 07/24/01 02/15/18 [address] [place] [address] documented as of this encounter
--- OUTSIDE RECORDS SUMMARY | 2022-05-14 08:46 | XMS_ITS | Encounter Summary ---
:1955 Author Organization [place] Address [address] [place] [address] Care Team Providers Name Role Phone Eldon Conway MD Primary Care Provider Encounter Details Date Type Department Care Team Description 09/22/2005 Orders Only [facility] Eldon Conway, WIN SIS NOT YET Clinic [place] DEFINED (Primary Dx) [id number] [facility] [id number] [place] [phone] Social History Tobacco Use Types Packs/Day Years Used Date Smoking Tobacco: Never Alcohol Use Standard Drinks/Week Comments No 0 (1 standard drink = 0.6 oz pure alcoho l) Sex Assigned at Date Recorded Not on file documented as of this encounter Plan of Treatment Not on filedocumented as of this encounter Procedures Procedure Name Priority Date/Time Associated Diagnosis Comme [facility] POLYSOMNOGRAPHY, 4 OR MORE Routine 09/22/2005 DIAGNOSIS [...] documented in this encounter Care Teams Research Interviewer Relationship Specialty Start Date End Date Eldon Conway MD PCP - General 07/24/01 02/15/[address] [place] [address] documented as of this encounter
--- OUTSIDE RECORDS SUMMARY | 2022-05-14 08:46 | XMS_ITS | Encounter Summary ---
:1955 Author Organization [place] Address [address] [place] [address] Care Team Providers Name Role Phone Eldon Conway MD Primary Care Provider Reason for Visit Reason Comments Sinus Problem sinus problems x 2 days Encounter Details Date Type Department Care Team Description 06/04/2005 Office Visit [facility] Eldon Conway, COUGH (Primary Dx) Cathy Wadsworth MD [address] [place] [phone] [phone] Social History Tobacco Use Types Packs/Day Years Used Date Smoking Tobacco: Never Alcohol Use Standard Drinks/Week Comments No 0 (1 standard drink = 0.6 oz pure alcoho l) Sex Assigned at Date Recorded Not on file documented as of this encounter Last Filed Vital Signs Vital Sign Reading Time Taken Comments Blood Pressure 98/56 06/04/2005 3:15 PM REGIONAL OPERATIONS DIRECTOR Pulse 80 06/04/2005 3:15 PM REGIONAL OPERATIONS DIRECTOR Temperature 37.3 ??C (99.2 ??F) 06/04/2005 3:15 PM REGIONAL OPERATIONS DIRECTOR Respiratory Rate - - Oxygen Saturation [...] have suggested that the patient PUSH FLUIDS. ONAL OPERATIONS DIRECTOR documented in this encounter Nursing Notes 06/04/2005 3:15 PM CST >> ANDREIYAJAIRA HOPEE 06/04/2005 3:24 pm Patient presents with: Sinus Problem - sinus problems x 2 days Initial BP 98/56 Pulse 80 Temp (Src) 99.2 (Oral) LMP Hysterectomy Estimated Body Mass Index is24.72 kg/(m^2) as calculated from: Height of 5' 1.75 (1.568m) as of 05/16/05 Weight of 134 lbs (60.782 kg) as of 05/16/05. BP completed using cuff size: large Yokasta Jeffrey PATIENT OBSERVATION ASSISTANT documented in this encounter Plan of Treatment Not on filedocumented as of this encounter Visit Diagnoses Diagnosis Cough - Primary documented in this encounter Care Teams Account Specialist Relationship Specialty Start Date End Date Eldon Conway MD PCP - General 07/24/01 02/15/18 [address] [place] [address] documented as of this encounter
--- OUTSIDE RECORDS SUMMARY | 2022-05-14 08:46 | XMS_ITS | Encounter Summary ---
:1955 Author Organization [facility] Address [address] [place] [address] Care Team Providers Name Role Phone Eldon Conway MD Primary Care Provider Reason for Referral - Closed Specialty Diagnoses / Procedures Referred By Contact Refer red To [place] [address] [place], [place] [address] Referral ID Status Reason Start Date Expiration Date Visits Requ ested Visits Authorized [id number] Closed 01/26/2004 06/08/2011 1 1 Reason for Visit Reason Comments Back Pain back pain x 2 weeks Encounter Details Date Type Department Care Team Description 01/23/2004 Office Visit [facility] Eldon Conway COUGH (Primary Dx) Cathy Wadsworth MD [address] [place] [id number] [phone] Social History Tobacco Use Types Packs/Day Years [...] Nursing Notes 01/23/2004 4:30 PM CDT >> ANDREI JOEL 01/23/04 5:02 pm Cough continuing and now [...] ??6:23 PM REPORT OF OUTSIDE FILMS FROM [facility] ??CLINIC DANIELLE ROBBLoreta ?: 55 CHEST ONE VIEW: ??01/23/04 FINDINGS: ??Negative chest. Agusto Velasquez M.D. EDEL/smb D/ Electronically filed by Natalie Mascorro ??01/25/2004 ??12:02 PM Eldon Conway MD GENERAL IMAGING documented in this encounter Visit Diagnoses Diagnosis Cough - Primary documented in this encounter Care Teams Airport Electrician Relationship Specialty Start Date End Date Eldon Conway MD PCP - General 07/24/01 02/15/18 [address] [place] [address] documented as of this encounter
--- OUTSIDE RECORDS SUMMARY | 2022-05-14 08:46 | XMS_ITS | Encounter Summary ---
:1955 Author Organization [place] Address [address] [place] [address] Care Team Providers Name Role Phone Eldon Schwartz MD Primary Care Provider Reason for Visit Reason Comments Pre-Op Exam Encounter Details Date Type Department Care Team Description 12/26/2003 Office Visit [facility] Eldon Schwartz, PREOP EXAM OTHER Clinic [place] MD SPECIFIED (Primary Dx) [address] [facility] [address] [place] [phone] Social History Tobacco Use Types Packs/Day Years [...] 10:00 AM CDT PREOPERATIVE HISTORY AND PHYSICAL Danielle Waldrop female 48 year old is coming for pre-op evaluation undergoing biopsy surgery for treatment of clitoral lesion . //Date of Surgery: 01/02/04 Surgeon: :[facility]:Simone Pastrana Fax number of Hospital/Surgical Facility: [phone] Type of Anesthesia Anticipate d: to be determined Primary Physician: : Man IMMUNIZATION: Last date of tetanus: 2 years [...] athologist Signature Hemoglobin 14.1 11.7 - 15.7 [facility] g/dL [facility] Specimen Anatomical Collection Method Collection Time Receive d Time (Source) Location / / Volume Laterality 12/26/2003 10:28 12/26/2003 AM CDT 10:29 AM CDT Eldon Schwartz MD LABORATORY Performing Organization Address City/State/[facility] Code Phon e Number [facility] [address] [place] [address] [facility] documented in this encounter Visit Diagnoses Diagnosis Other specified pre-operative examinatio n - Primary documented in this encounter Care Teams Fiscal Technician Relationship Specialty Start Date End Date Eldon Schwartz MD PCP - General 07/24/01 02/15/18 [address] [place] [address] documented as of this encounter
--- OUTSIDE RECORDS SUMMARY | 2022-05-14 08:46 | XMS_ITS | Encounter Summary ---
:1955 Author Organization [place] Address [address] [place] [address]. [place] [address] Care Team Providers Name Role Phone Eldon Conway MD Primary Care Provider Reason for Visit Reason Onset Date Comments Results 08/13/2006 please review lab an d send copy Encounter Details Date Type Department Care Team Description 08/13/2006 Telephone [facility] Eldon Conway, Result s (please review Clinic Cathy Wadsworth MD lab and send copy) [address] [place] [phone] Social History Tobacco Use Types Packs/Day Years Used Date Smoking Tobacco: Never Alcohol Use Standard Drinks/Week Comments No 0 (1 standard drink = 0.6 oz pure alcoho l) Sex Assigned at Date Recorded Not on file documented as of this encounter Miscellaneous Notes Telephone Encounter - Isabella Olivarez - 08/19/2006 3:24 PM CDT Letter sent to patient. Marily Olivarez SPOT MACHINE OPERATOR Telephone Encounter - Sunni Shay - 08/18/2006 4:11 PM CDT What dose of lipitor? Lab Test 07/08/06 05/16/05 CHOL 274* 301* HDL 80 73 LDL 171* 196* TRIG 120 157* CHOLHDLRATIO 3.5 4.1 AST 27 07/08/2006 ALT 28 07/08/2006 ThanksSunni RN Telephone Encounter - Eldon Conway - 08/18/2006 8:31 AM CDT Low fat diet or lets have Her start lipitor Telephone Encounter - Sunni Shay - 08/13/2006 10:43 AM CST Pt calling for lab results from 07/08/06-please review and send letter with copy of results to home address. Call if questions to [phone] Ok to wait until next week Thanks, Sunni Shay RN TRY HANGER documented in this encounter Plan of Treatment Not on filedocumented as of this encounter Visit Diagnoses Not on filedocumented in this encounter Care Teams Valve Setter Relationship Specialty Start Date End Date Eldon Conway MD PCP - General 07/24/01 02/15/18 [address] [place] [address] documented as of this encounter
--- OUTSIDE RECORDS SUMMARY | 2022-05-14 08:46 | XMS_ITS | Encounter Summary ---
:1955 Author Organization [place] Address [address] [place] [address] Care Team Providers Name Role Phone Eldon Conway MD Primary Care Provider Encounter Details Date Type Department Care Team Description 08/25/2003 Orders Only [facility] Eldon Conway, DIAGNO SIS NOT YET Clinic [place] MD DEFINED (Primary Dx) [address] [facility] [id number] [place] [phone] Social History Tobacco Use Types Packs/Day Years Used Date Smoking Tobacco: Never Alcohol Use Standard Drinks/Week Comments No 0 (1 standard drink = 0.6 oz pure alcoho l) Sex Assigned at Date Recorded Not on file documented as of this encounter Plan of Treatment Not on filedocumented as of this encounter Procedures Procedure Name Priority Date/Time Associated Diagnosis Comme nts ABSTRACT [facility] REPORT Routine 08/25/2003 DIAGNOSIS NOT YET DEFINED documented in this encounter Results ABSTRACT [facility] REPORT (08/25/2003) Narrative This result has an attachment that is no t available. Eldon Conway MD LABORATORY Performing Organization Address City/State/ZIP Code Phon e Number [facility] documented in this encounter Visit Diagnoses Diagnosis DIAGNOSIS NOT YET DEFINED - Primary documented in this encounter Care Teams Supervisor Cigar Processing Relationship Specialty Start Date End Date Eldon Conway MD PCP - General 07/24/01 02/15/18 [address] [place], [place] [id number] documented as of this encounter
--- OUTSIDE RECORDS SUMMARY | 2022-05-14 08:46 | XMS_ITS | Encounter Summary ---
:1955 Author Organization [place] Address [address] [place] [address] Care Team Providers Name Role Phone Eldon Conway MD Primary Care Provider Encounter Details Date Type Department Care Team Description 08/25/2003 Emergency room Oseas Logan [place] [address] Social History Tobacco Use Types Packs/Day Years Used Date Smoking Tobacco: Never Alcohol Use Standard Drinks/Week Comments No 0 (1 standard drink = 0.6 oz pure alcoho l) Sex Assigned at Date Recorded Not on file documented as of this encounter ED Notes Desmond Oseas Jacob - 08/25/2003 12:00 AM STEREOTYPE MOLDER : 1955 ATTENDING PHYSICIAN: Eldon Conway M.D. CHIEF COMPLAINT: Difficulty with starting urinary stream. HISTORY OF PRESENT ILLNESS: This 48-year-old female underwent a same day surgical procedure on her left shoulder for impingement syndrome due to a Workman's Comp injury, with the patient stating that she did receive a general anesthetic. The procedure was performed at [facility]. Today she has the development of [...] symptoms. [id number]_ OSEAS LOGAN MD MT: Document: [id number] [place], [place] Name: WALDROP DANIELLE L EMERGENCY ROOM ENCOUNTER Page 2 of 2 LCN: CELSO DSC: 08/25/2003 [place], [place] Name: MR#: : Admit Date: CEZARNANDINIDANIELLE Taurus [id number] 1955 08/25/2003 Doctor: OSEAS LOGAN MD EMERGENCY ROOM ENCOUNTER Page 1 of 2 documented in this encounter Plan of Treatment Not on filedocumented as of this encounter Visit Diagnoses Not on filedocumented in this encounter Care Teams Barnworker Groom Relationship Specialty Start Date End Date Eldon Conway MD PCP - General 07/24/01 02/15/18 [address] [place] [address] documented as of this encounter
--- OUTSIDE RECORDS SUMMARY | 2022-05-14 08:46 | XMS_ITS | Encounter Summary ---
:1955 Author Organization [facility] Address [address] [place] [address] Care Team Providers Name Role Phone Eldon Conway MD Primary Care Provider Reason for Visit Reason Comments Radiology Visit Encounter Details Date Type Department Care Team Description 05/30/2005 Orders Only [facility] MEDICAL EXAM [place] (Primary Dx) [address] [place] [phone] Social History Tobacco Use Types [...] Primary documented in this encounter Care Teams Financial Brokers Relationship Specialty Start Date End Date Eldon Conway MD PCP - General 07/24/01 02/15/18 [address] [facility] [address] documented as of this encounter
--- OUTSIDE RECORDS SUMMARY | 2022-05-14 08:46 | XMS_ITS | Encounter Summary ---
:1955 Author Organization [place] Address [address] [place] [address]. [place] [address] Care Team Providers Name Role Phone Eldon Conway MD Primary Care Provider Reason for Visit Reason Onset Date Comments Medication Request 12/29/2003 - Desires abx Encounter Details Date Type Department Care Team Description 12/29/2003 Telephone [facility] Eldon Conway, Medica tion Request (- Clinic [place] MD Desires abx) [id number] [place] [phone] Social History Tobacco Use Types Packs/Day Years Used Date Smoking Tobacco: Never Alcohol Use Standard Drinks/Week Comments No 0 (1 standard drink = 0.6 oz pure alcoho l) Sex Assigned at Date Recorded Not on file documented as of this encounter Miscellaneous Notes Telephone Encounter - 12/29/2003 1:50 PM CDT >> MEREDITH GOLDEN Doris Dec 29, 2003 1:52 PM Surgery (biopsy of clitoris) to be done 01/02/04. Has developed a cough/cold and pre-op surgical nurse advised her to call to get on abx prophylactically before the surgery. Meredith Golden RN documented in this encounter Plan of Treatment Not on filedocumented as of this encounter Visit Diagnoses Not on filedocumented in this encounter Care Teams Keyboarding Clerk Relationship Specialty Start Date End Date Eldon Conway MD PCP - General 07/24/01 02/15/18 [address] [place] [address] documented as of this encounter
--- OUTSIDE RECORDS SUMMARY | 2022-05-14 08:46 | XMS_ITS | Encounter Summary ---
:1955 Author Organization [place] Address [address] [place] [address] Care Team Providers Name Role Phone Eldon Conway MD Primary Care Provider Reason for Visit Reason Onset Date Comments Patient/info Update 06/12/2005 Conitunes with blood y sinus drainage Slk Encounter Details Date Type Department Care Team Description 06/12/2005 Telephone [facility] Eldon Conway Patien t/info Update Clinic Cathy Wadsworth MD (Conitunes with bloody [address] sinus drainage Slk) [place] [phone] Social History Tobacco Use Types Packs/Day Years Used Date Smoking Tobacco: Never Alcohol Use Standard Drinks/Week Comments No 0 (1 standard drink = 0.6 oz pure alcoho l) Sex Assigned at Date Recorded Not on file documented as of this encounter Miscellaneous Notes Telephone Encounter - Yokasta Jeffrey - 06/14/2005 12:03 PM CST Patient returned call and info given. New RX was faxed to [facility] per Dr. Conway. Yokasta Jeffrey LPN TING CONTRACT MINER Telephone Encounter - Ivette Sales - 06/14/2005 10:00 AM CST LMOM to call silver. Ivette Sales RN TING CONTRACT MINER Telephone Encounter - Eldon Conway - 06/12/2005 5:56 PM CST JUST A DAB OF NEOSPORIN IN HER NOSE TWICE A DAY. OR WE CAN CALL IN SOME BACTROBAN. TING CONTRACT MINER Telephone Encounter - Aarti Keyes - 06/12/2005 9:44 AM CST Pt. called and said that she took the last pill of Levaquin today and is still having bloody nasal drainage and sinus pressure. Please advise and call her with a reponse [phone].Aarti Keyes RN. TING CONTRACT MINER documented in this encounter Plan of Treatment Not on filedocumented as of this encounter Visit Diagnoses Not on filedocumented in this encounter Care Teams Towing Pilot Relationship Specialty Start Date End Date Eldon Conway MD PCP - General 07/24/01 02/15/18 [address] [place] [address] documented as of this encounter
--- OUTSIDE RECORDS SUMMARY | 2022-05-14 08:46 | XMS_ITS | Encounter Summary ---
:1955 Author Organization [place] Address [address] [place] [address] Care Team Providers Name Role Phone Eldon Conway MD Primary Care Provider Encounter Details Date Type Department Care Team Description 09/17/2005 Orders Only [facility] Eldon Conway, WIN SIS NOT YET Clinic [place] DEFINED (Primary Dx) [address] [facility] [address] [place] [phone] Social History Tobacco Use Types Packs/Day Years [...] Primary documented in this encounter Care Teams Coal Cutting Machine Operator Relationship Specialty Start Date End Date Eldon Conway MD PCP - General 07/24/01 02/15/[id number] [place] [address] [phone] documented as of this encounter
--- OUTSIDE RECORDS SUMMARY | 2022-05-14 08:46 | XMS_ITS | Encounter Summary ---
:1955 Author Organization [place] Address [address] [place] [address] Care Team Providers Name Role Phone Eldon Conway MD Primary Care Provider Reason for Visit Reason Onset Date Comments Refill Request 01/09/2004 cheratussin Encounter Details Date Type Department Care Team Description 01/09/[address] [facility] Eldon Conway MD Refill Request [place] [address] (cheratussin) [address] [place] [phone] Social History Tobacco Use Types Packs/Day Years [...] on filedocumented in this encounter Care Teams Baseball Inspector And Repairer Relationship Specialty Start Date End Date Eldon Conway MD PCP - General 07/24/01 02/15/[address] [place] [address] documented as of this encounter
--- OUTSIDE RECORDS SUMMARY | 2022-05-14 08:46 | XMS_ITS | Encounter Summary ---
:1955 Author Organization [facility] Address [address] [place] [address] Care Team Providers Name Role Phone Eldon Conway MD Primary Care Provider Encounter Details Date Type Department Care Team Description 09/21/2007 Therapy Visit [facility] B ACK SYMPTOMS; Orthopedic J, DC SOMAT DYSFUNC SACRAL REG; Care-[place] Ch[facility] o REVIVE WELLNESS SOMAT DYSFUNC LOWER EXTR; [address], [place] [address] [place] [facility] [address] [place] [address] [place], [place] 848[address] Social History Tobacco Use Types Packs/Day Years [...] Name Priority Date/Time Associated Diagnosis Comme nts [facility] THERAPEUTIC Routine 12/04/2007 2:48 PM Other Symptoms EXERCISES CDT Referable to [facility] Nonallopathic Lesion of Sacral Region, not Elsewhere Classi fied Nonallopathic Lesion of Lower Extremities, not Elsewhere Classified Pain in Joint, Pelvic Region and Thigh [facility] CHIROPRA Routine 09/21/2007 9:51 AM Other Back Sy mptoms MANIP,EXTRASP W/ MULT CDT Somat Dysfunc Sacra l PROC Reg Somat Dysfunc Lower Extr Joint Pain-Pelvis [facility] CHIROPRA Routine 09/21/2007 9:51 AM Other [...] thigh documented in this encounter Care Teams Manufacturing Maintenance Technician Relationship Specialty Start Date End Date Eldon Conway MD PCP - General 07/24/01 02/15/18 [address] [place] [address] documented as of this encounter
--- OUTSIDE RECORDS SUMMARY | 2022-05-14 08:46 | XMS_ITS | Encounter Summary ---
:1955 Author Organization [place] Address [address] [place] [address] Care Team Providers Name Role Phone Eldon Schwartz MD Primary Care Provider Reason for Visit Reason Comments Physical PE/PAP, pt is fasting this A M Encounter Details Date Type Department Care Team Description 05/16/2005 Office Visit M [facility] Eldon Schwartz ROUTIN E MEDICAL EXAM Clinic Cathy Wadsworth MD (Primary Dx) [address] [address] [phone] Social History Tobacco Use Types Packs/Day Years Used Date Smoking Tobacco: Never Alcohol Use Standard Drinks/Week Comments No 0 (1 standard drink = 0.6 oz pure alcoho l) Sex Assigned at Date Recorded Not on file documented as of this encounter Last Filed Vital Signs Vital Sign Reading Time Taken Comments Blood Pressure 112/62 05/16/2005 8:00 AM CERTIFIED CODER Pulse 80 05/16/2005 8:00 AM CERTIFIED CODER Temperature 36.8 ??C (98.2 ??F) 05/16/2005 8:00 AM CERTIFIED CODER Respiratory Rate 16 05/16/2005 8:00 AM CERTIFIED CODER Oxygen Saturation - - Inhaled Oxygen Concentration - - Weight 60.8 kg (134 lb) 05/16/2005 8:00 AM CERTIFIED CODER Height 156.8 cm (5' 1.75) 05/16/2005 8:00 AM CERTIFIED CODER Body Mass Index 24.71 05/16/2005 8:00 AM CERTIFIED CODER documented in this encounter Progress Notes Man Eldon - 05/16/2005 9:02 AM CST SUBJECTIVE: CC: [...] 16 Number of Children: 4 Occupational History [employer] Social History Main Topics Tobacco Use: Never [...] appointment if any problems or failureto improve. IFIED CODER documented in this encounter Nursing Notes 05/16/2005 [...] AM Routine Medic al Results for this CERTIFIED CODER Exam procedure are i n the results section. HCL UA MICRO IF Routine 05/16/2005 8:40 AM Routine Medical Res ults for this POSITIVE CERTIFIED CODER Exam procedure are i n the results section. CL AFF CBC WITH Routine 05/16/2005 8:39 AM Routine Medical Res ults for this PLATELETS CERTIFIED CODER Exam procedure are i n the results section. HCL COMPREHENSIVE Routine 05/16/2005 8:39 AM Routine Medical R esults for this METABOLIC PANEL CERTIFIED CODER Exam procedure ar e in the results section. HCL TSH W/FREE T4 Routine 05/16/2005 8:39 AM Routine Medical R esults for this REFLEX CERTIFIED CODER Exam procedure are i n the results section. CL AFF A.M.A. LIPID Routine 05/16/2005 8:39 AM Routine Medical Results for this PANEL CERTIFIED CODER Exam procedure are i n the results section. HCL PAP THIN LAYER Routine 05/16/2005 12:00 Routine Medical Re sults for this SCREEN AM CERTIFIED CODER Exam procedure are i n the results section. documented in this encounter Results CRP, CARDIAC RISK (05/16/2005 8:42 AM CERTIFIED CODER) [facility] Signature CRP Cardiac <0.2 mg/L [facility] Risk Reference Values: OXNARD Low Risk: ? <1.0 mg/L [facility] Average Risk: ? 1.0-3.0 mg/L High Risk: ?>3.0 mg/L Acute Inflammation: >8.0 mg/L The result units for this test have been changed: mg/L = mg /dL x 10 Specimen Anatomical Collection Method Collection Time Receive d Time (Source) Location / / Volume Laterality 05/16/2005 8:42 AM 5 8:47 CERTIFIED CODER AM CERTIFIED CODER Eldon Schwartz MD LABORATORY Performing Organization Address City/State/ZIP Code Phon e Number [facility] [address] [place], [place] [id number] [place] [address] LABS UA MICRO IF POSITIVE (05/16/2005 8:40 AM CERTIFIED CODER) [facility] Signature Color Urine Yellow [facility] Appearance Urine Clear [facility] Glucose Urine Negative NEG mg/dL [facility] Bilirubin Urine Negative NEG [facility] Ketones Urine Negative NEG mg/dL [facility] Specific [place] 1.025 1.003 - [place] Urine 1.035 [facility] Blood Urine Negative NEG [facility] pH Urine 6.5 5.0 - 7.0 [place] pH [facility] Protein Albumin Negative NEG mg/dL [place] Urine [facility] Urobilinogen 0.2 0.2 - 1.0 [place] Urine EU/dL [facility] Nitrite Urine Negative NEG [facility] Leukocyte Negative NEG [place] Esterase Urine [facility] Source Midstream [place] Urine [facility] Specimen Anatomical Collection Method Collection Time Receive d Time (Source) Location / / Volume Laterality 05/16/2005 8:40 AM 5 8:45 CERTIFIED CODER AM CERTIFIED CODER Eldon Schwartz MD LABORATORY Performing Organization Address [facility]/ZIP Code Phon e Number [address] [address] [facility] CBC WITH PLATELETS (05/16/2005 8:39 AM CERTIFIED CODER) athologist Signature WBC 4.7 4.0 - 11.0 [place] 10e9/L [facility] RBC Count 4.79 3.8 - 5.2 [place] 10e12/L [facility] Hemoglobin 15.1 11.7 - [place] 15.7 g/dL [facility] Hematocrit 44.5 35.0 - [place] 47.0 % [facility] MCV 93 78 - 100 [place] fl [facility] MCH 31.5 26.5 - [place] 33.0 pg [facility] MCHC 33.9 32.0 - [place] 36.0 g/dL [facility] RDW 12.7 10.0 - [place] 15.0 % [facility] Platelet Count 250 150 - 450 [facility] 10e9/L [facility] Specimen Anatomical Collection Method Collection Time Receive d Time (Source) Location / / Volume Laterality 05/16/2005 8:39 AM 5 8:44 CERTIFIED CODER AM CERTIFIED CODER Eldon Schwartz MD LABORATORY Performing Organization Address [facility]/ZIP Code Phon e Number [address] [address] [facility] (ABNORMAL) A.M.A. LIPID PANEL (05/16/2005 8:39 AM CERTIFIED CODER) P athologist Signature Cholesterol 301 (H) 0 - 200 [place] mg/dL CLINIC LAB Comment: LDL Cholesterol [...] Triglycerides 157 (H) 0 - 150 mg/dL [facility] AN [facility] HDL Cholesterol 73 50 - 110 mg/dL [facility] LDL Cholesterol Calculated 196 (H) 0 - 129 mg/dL [facility] Comment: LDL Cholesterol is the primary guide to therapy: LDL-cholesterol goal in high risk patients is <100 mg/dL and in very high risk patients is <70 mg/dL. VLDL-Cholesterol 31 (H) 0 - 30 mg/dL [facility] Cholesterol/HDL Ratio 4.1 0.0 - 5.0 [facility] Specimen Anatomical Collection Method Collection Time Receive d Time (Source) Location / / Volume Laterality 05/16/2005 8:39 AM 5 8:44 CERTIFIED CODER AM CERTIFIED CODER Eldon Schwartz MD LABORATORY Performing Organization Address City/State/ZIP Code Phon e Number [facility] [place] [address] [place] [address] [facility] A.M.A. COMPREHENSIVE MET.PANEL (05/16/2005 8:39 AM CERTIFIED CODER) P athologist Signature Sodium 143 133 - 144 [place] mmol/L CLINIC LAB Potassium 4.1 3.4 - 5.3 [place] mmol/L [facility] Chloride 102 94 - 109 [place] mmol/L [facility] Carbon Dioxide 32 20 - 32 [place] mmol/L [facility] Anion Gap 9 6 - 17 [place] mmol/L [facility] Glucose 89 60 - 110 [place] mg/dL [facility] LAB Urea Nitrogen 13 5 - 24 [place] mg/dL [facility] LAB Creatinine 0.80 0.60 - [place] 1.30 mg/dL [facility] LAB GFR Estimate >80 >60 [place] mL/min/1.7 [facility] LAB m2 GFR Estimate If >80 >60 [facility] Black mL/min/1.7 [facility] LAB m2 Calcium 9.6 8.5 - 10.4 [place] mg/dL [facility] LAB Bilirubin Total 0.6 0.2 - 1.3 [place] mg/dL [facility] LAB Albumin 4.4 3.3 - 4.6 [place] g/dL [facility] Protein Total 7.8 6.0 - 8.2 [place] g/dL [facility] Alkaline 64 40 - 150 [facility] Phosphatase U/L [facility] LAB ALT 37 0 - 50 U/L [facility] AST 28 0 - 45 U/L [facility] Specimen Anatomical Collection Method Collection Time Receive d Time (Source) Location / / Volume Laterality 05/16/2005 8:39 AM 5 8:44 CERTIFIED CODER AM CERTIFIED CODER Eldon Schwartz MD LABORATORY Performing Organization Address City/[facility]/ZIP Code Phon e Number [facility] [address] [place] [address] [facility] TSH W/FREE T4 REFLEX (05/16/2005 8:39 AM CERTIFIED CODER) P athologist Signature TSH 1.00 0.4 - 5.0 [facility] mU/L [facility] Specimen Anatomical Collection Method Collection Time Receive d Time (Source) Location / / Volume Laterality 05/16/2005 8:39 AM 5 8:44 CERTIFIED CODER AM CERTIFIED CODER Eldon Schwartz MD LABORATORY Performing Organization Address City/[facility]/ZIP Code Phon e Number [facility] [address] [place] [address] [facility] A THIN LAYER PAP SCREEN (05/16/2005 12:00 AM CERTIFIED CODER) Component Value Ref Test Analysis Performed At Patholo gist Range Method Time Signature PAP NIL COPATH Copath Report COPATH Patient Name: DANIELLE ROBB MR#: [id number] Specimen #: [id number] Collected: 05/16/2005 Received: 05/16/2005 Reported: 05/17/2005 14:05 [...] RENETTA Hagen (ASCP) [facility] CLINICAL HISTORY: Partial Hysterectomy Post Menopausal, Previous normal pap Date of Last Pap: 01-10, TESTING LAB LOCATION: [facility] [address] [place], [place] ??[address] [facility]LE[facility] SITE: [facility] Location: [facility] (R) Specimen (Source) Anatomical Collection Method Collection Time Re ceived Time Location / / Volume Laterality 05/16/2005 05/16/2005 2:19 PM CERTIFIED CODER Eldon Schwartz MD LABORATORY Performing Organization Address City/State/ZIP Code Phon e Number [facility] documented in this encounter Visit Diagnoses Diagnosis Routine general medical examination at a health care facility - Primary documented in this encounter Care Teams Supervisor Real Estate Office Relationship Specialty Start Date End Date Eldon Schwartz MD PCP - General 07/24/01 02/15/18 [address] [place] [address] documented as of this encounter
--- OUTSIDE RECORDS SUMMARY | 2022-05-14 08:46 | XMS_ITS | Encounter Summary ---
:1955 Author Organization [facility] Address [address] [place] [address] Care Team Providers Name Role Phone Eldon Conway MD Primary Care Provider Encounter Details Date Type Department Care Team Description 09/22/2005 Historic Assistant Professor Of Biochemistry Neurosurgery Clin ic Cristina Beavers-Jose Warner MD [address] Floor, Clinic [address] [phone] Social History Tobacco Use Types Packs/Day Years Used Date Smoking Tobacco: Never Alcohol Use Standard Drinks/Week Comments No 0 (1 standard drink = 0.6 oz pure alcoho l) Sex Assigned at Date Recorded Not on file documented as of this encounter Progress Notes Cristina Beavers MD - 05/14/2011 11:18 PM MANUFACTURING SUPERVISOR 2ND SHIFT PRELIMINARY SUMMARY: Danielle Robb underwent an overnight [...] MD MT: isaias Name: DANIELLE ROBB Account: [id number] : 1955 Visit Date: 09/22/2005 Document: [id number] FACTURING SUPERVISOR 2ND SHIFT documented in this encounter Plan of Treatment Not on filedocumented as of this encounter Visit Diagnoses Not on filedocumented in this encounter Care Teams Soil Field Technician Relationship Specialty Start Date End Date Eldon Conway MD PCP - General 07/24/01 02/15/18 [address] [place] [address] documented as of this encounter
--- OUTSIDE RECORDS SUMMARY | 2022-05-14 08:46 | XMS_ITS | Encounter Summary ---
:1955 Author Organization [place] Address [address] [place] [address] Care Team Providers Name Role Phone Eldon Conway MD Primary Care Provider Reason for Visit Reason Comments Medication Problem medication not working Encounter Details Date Type Department Care Team Description 01/05/2004 Office Visit [facility] Eldon Conway, COUGH (Primary Dx) Cathy Wadsworth MD [address] [place] [phone] [phone] Social History Tobacco Use Types Packs/Day Years [...] >> NELLY MORGAN 01/05/04 1:06 pm Danielle Taurus Robb presents for medication problem,medication not working. [...] PM CDT REPORT OF OUTSIDE FILMS FROM [facility] ??CLINIC DANIELLE ROBB ?: 55 CHEST 01/05/04: HISTORY: Cough. FINDINGS: Negative. Oseas Juarez M.D./seth D/ Ordering MD/Provider Initial Interpretat ion: Normal/Negative. Electronically filed by Odilia Anguiano ??01/05/2004 ??3:08 PM Eldon Conway MD GENERAL IMAGING WBC & DIFF (01/05/2004 1:18 PM CDT) [facility] Method Time Signature WBC 7.1 4.0 - [facility] 11.0 [facility] 10e9/L CLINIC LAB Diff Method Automated [facility] Method [facility] % Lymphocytes 34 20 - 48 % [facility] % Monocytes 6 0 - 12 % [facility] % Granulocytes 60 40 - 75 % [facility] Absolute 2.4 0.8 - 5.3 [facility] Lymphocytes 10e9/L [facility] Absolute 0.4 0.0 - 1.3 [facility] Monocytes 10e9/L [facility] Absolute 4.3 1.6 - 8.3 [facility] Granulocytes 10e9/L [facility] Specimen Anatomical Collection Method Collection Time Receive d Time (Source) Location / / Volume Laterality 01/05/2004 1:18 PM 1:19 CDT PM CDT Eldon Conway MD LABORATORY Performing Organization Address City/State/ZIP Code Phon e Number [facility] [address] [place] [address] [facility] documented in this encounter Visit Diagnoses Diagnosis Cough - Primary documented in this encounter Care Teams Billing And Quality Technician Relationship Specialty Start Date End Date Eldon Conway MD PCP - General 07/24/01 02/15/18 [address] [place] [address] documented as of this encounter
--- OUTSIDE RECORDS SUMMARY | 2022-05-14 08:46 | XMS_ITS | Encounter Summary ---
:1955 Author Organization [place] Address [address] [place] [address] Care Team Providers Name Role Phone Eldon Conway MD Primary Care Provider Encounter Details Date Type Department Care Team Description 09/29/2003 Orders Only [facility] Eldon Conway, WIN SIS NOT YET Clinic [place] DEFINED (Primary Dx) [address] [phone] Social History Tobacco Use Types Packs/Day Years Used Date Smoking Tobacco: Never Alcohol Use Standard Drinks/Week Comments No 0 (1 standard drink = 0.6 oz pure alcoho l) Sex Assigned at Date Recorded Not on file documented as of this encounter Plan of Treatment Not on filedocumented as of this encounter Procedures Procedure Name Priority Date/Time Associated Diagnosis Comme nts ZZ CONSULT SENIOR SQL SERVER DEVELOPER Routine 09/29/2003 DIAGNOSIS NOT YET DE FINED documented in this encounter Results CONSULT SENIOR SQL SERVER DEVELOPER (09/29/2003) Specimen (Source) Anatomical Location Collection Method / Collectio n Time Received Time / Laterality Volume 09/29/2003 Narrative This result has an attachment that is no t available. Eldon Conway MD REFERRAL documented in this encounter Visit Diagnoses Diagnosis DIAGNOSIS NOT YET DEFINED - Primary documented in this encounter Care Teams Replenishment Buyer Relationship Specialty Start Date End Date Eldon Conwya MD PCP - General 07/24/01 02/15/18 [address] [place] [address] documented as of this encounter
--- OUTSIDE RECORDS SUMMARY | 2022-05-14 08:46 | XMS_ITS | Encounter Summary ---
:1955 Author Organization [facility] Address [address] [place] [address] Care Team Providers Name Role Phone Eldon Conway MD Primary Care Provider Reason for Visit Reason Onset Date Comments Nurse Advice Line 06/15/2007 sinus Encounter Details Date Type Department Care Team Description 06/15/2007 Telephone [facility] Eldon Conway, Nurse Advice Line Clinic Cathy Wadsworth MD (sinus) [address] [place] [phone] Social History Tobacco Use Types Packs/Day Years [...] has been addressed yet. Aarti Keyes RN. C DIRECTOR Telephone Encounter - Mel Collins - 06/15/2007 9:07 AM CST Pt calls, has no insurance this month, c/o sinus sxs x 3-4 days, voice hoarse, nose swollen and hot, a lot of PND, bloody noses with green stuff, some sinus pain, burning across nose, hx of sinusitis, would like rx, call pt if tbl otherwise pt will f/u with pharmacy Mel Collins RN C DIRECTOR documented in this encounter Plan of Treatment Not on filedocumented as of this encounter Visit Diagnoses Diagnosis Acute nasopharyngitis (common cold) - Pr imary documented in this encounter Care Teams Torque Tester Relationship Specialty Start Date End Date Eldon Conway MD PCP - General 07/24/01 02/15/18 [address] [place] [address] documented as of this encounter
--- OUTSIDE RECORDS SUMMARY | 2022-05-14 08:46 | XMS_ITS | Encounter Summary ---
:1955 Author Organization [place] Address [address] [place] [address] Care Team Providers Name Role Phone Eldon Conway MD Primary Care Provider Reason for Visit Reason Comments Refill Request new RX for sinus Encounter Details Date Type Department Care Team Description 06/14/2005 Orders Only [facility] Eldon Conway, NASAL & SINUS DIS NEC Clinic [place] (Primary Dx) [address] [place] [id number] [place] [phone] Social History Tobacco Use Types Packs/Day Years [...] es documented in this encounter Care Teams Study Hall Supervisor Relationship Specialty Start Date End Date Eldon Conway MD PCP - General 07/24/01 02/15/[id number] [place] [id number] documented as of this encounter
--- OUTSIDE RECORDS SUMMARY | 2022-05-14 08:46 | XMS_ITS | Encounter Summary ---
:1955 Author Organization [place] Address [address] [place] [address] Care Team Providers Name Role Phone Eldon Conway MD Primary Care Provider Encounter Details Date Type Department Care Team Description 11/18/2004 Emergency room Kosta King MD EMERGENCY PHYSIC [facility] [address] [place] [address] (Wo rk) Social History Tobacco [...] She volunteers that she was up in [facility] yesterday where it was probably contracted. It [...] SOCIAL HISTORY: Patient is , lives in [place], is employed in [employer]. Primary clinic is [facility]. FAMILY HISTORY is not contributory. REVIEW OF [...] discharge. [id number]_ KOSTA KING MD MT: Document: [id number] [place], [place] Name: MR#: DANIELLE ROBB -10 EMERGENCY ROOM ENCOUNTER Page 2 of 2 LCN: CELSO DSC: 11/18/2004 [place], [place] Name: MR#: DANIELLE ROBB [id number] : Admit Date: Account #: 1955 11/18/2004 [id number] Doctor: KOSTA KING MD EMERGENCY ROOM ENCOUNTER Page 1 of 2 documented in this encounter Plan of Treatment Not on filedocumented as of this encounter Visit Diagnoses Not on filedocumented in this encounter Care Teams Pre Press Manager Relationship Specialty Start Date End Date Eldon Conway MD PCP - General 07/24/01 02/15/18 [address] [place] [address] documented as of this encounter
--- OUTSIDE RECORDS SUMMARY | 2022-05-14 08:46 | XMS_ITS | Encounter Summary ---
:1955 Author Organization [place] Address [address] [place] [address] Care Team Providers Name Role Phone Eldon Conway MD Primary Care Provider Encounter Details Date Type Department Care Team Description 01/04/2004 Operative Report Shalom Gannon, (Foreign Language Instructor) [address] [facility] [address] [place] [address] (Wo rk) Social History Tobacco Use Types Packs/Day Years Used Date Smoking Tobacco: Never Alcohol Use Standard Drinks/Week Comments No 0 (1 standard drink = 0.6 oz pure alcoho l) Sex Assigned at Date Recorded Not on file documented as of this encounter Miscellaneous Notes Op Note - Marily Gannon - 01/02/2004 12:00 AM CDT : 1st ASS'T: 2nd ASS'T: PRE-OPERATIVE DIAGNOSIS: Lesion of the clitoris. POST-OPERATIVE DIAGNOSIS: Lesion of the clitoris. OPERATION: Excisional biopsy of clitoral lesion. BLOOD LOSS: Less than 5 cc. COMPLICATIONS: None. INDICATIONS AND CONSENT: This patient is a 48-year-old with a clitoral lesion unresponsive to outpatient medical management. This has been symptomatic. She has been offered excisional biopsy. Benefits and risks have been discussed including risk of bleeding, infection. She has a clear understanding and gives clear informed consent. PROCEDURE: The patient was taken to the Operating Room where MAC is administered. The vulva and clitoris are prepped and draped in the usual sterile fashion. The clitoris anesthetized with Marcaine without epinephrine. The small lesion is approximately 4 mm x 3 mm and this is completely excised. Hemostasis is achieved with cautery. No suturing was required. Patient tolerated the procedure well without discomfort. Sponge counts were reported to me as correct. Blood loss less than 5 cc. [id number]_ K JAMEE GANNON MD MT: Document: [id number] [place], [place] Name: DANIELLE ROBB LCN: SDS DSC: 01/02/2004 [place], [place] Name: MR#: : Procedure Date: DANIELLE ROBB [id number] 1955 Doctor: Marily GANNON MD OPERATIVE REPORT Page 1 of 1 documented in this encounter Plan of Treatment Not on filedocumented as of this encounter Visit Diagnoses Not on filedocumented in this encounter Care Teams Bat Person Relationship Specialty Start Date End Date Eldon Conway MD PCP - General 07/24/01 02/15/18 [address] [place] [address] documented as of this encounter
--- OUTSIDE RECORDS SUMMARY | 2022-05-14 08:46 | XMS_ITS | Encounter Summary ---
:1955 Author Organization [place] Address [address] [place] [address]. [place] [address] Care Team Providers Name Role Phone Eldon Schwartz MD Primary Care Provider Reason for Visit Reason Onset Date Comments Cough 01/11/2004 continues to have ba d cough Encounter Details Date Type Department Care Team Description 01/11/2004 Telephone [facility] Eldon Schwartz, Cough (continues to Clinic [place] have bad cough) [address] [place] [phone] Social History Tobacco Use Types Packs/Day Years [...] on her med, and close encounter Lorene Washburn/SCHOOL AIDE >> IVETTE PAL FriJan 13, 2004 1:33 PM LMOM to call jolynn. She can try OTC Guaifenisen per . Ivette Pal RN >> ELDON SCHWARTZ [facility] Jan 12, 2004 2:45 PM lets try liquibid twice a day then if no results i will have pulmonmary see her. >> DENISE GALDAMEZ Wed Jan 11, 2004 9:15 AM Pt calling, states she continues to have a bad cough. She states she has very thick, white phlegm that she coughs up. No fever, but will gasp with the deep cough. suggestions? Christen Galdamez RN documented in this encounter Plan of Treatment Not on filedocumented as of this encounter Visit Diagnoses Not on filedocumented in this encounter Care Teams Gag Writer Relationship Specialty Start Date End Date Eldon Schwartz MD PCP - General 07/24/01 02/15/18 [address] [place] [address] documented as of this encounter
--- OUTSIDE RECORDS SUMMARY | 2022-05-14 08:46 | XMS_ITS | Encounter Summary ---
:1955 Author Organization [facility] Address [address] [place] [address] Care Team Providers Name Role Phone Eldon Conway MD Primary Care Provider Mariaelena Boland Primary Care Provider Encounter Details Date Type Department Care Team Description 08/19/2003 [facility] Eldon Conway DIAGNO SIS NOT YET Clinic [place] MD DEFINED (Primary Dx) [address] [facility] [address] [place] [address] [phone] Social History Tobacco Use Types Packs/Day Years [...] Primary documented in this encounter Care Teams Manager Medicare Relationship Specialty Start Date End Date Eldon Conway MD PCP - General 07/24/01 02/15/18 [address] [place] [address] Mariaelena Boland PCP - General Internal Medicine 02/16/[address] [address] (work) documented as of this encounter
--- OUTSIDE RECORDS SUMMARY | 2022-05-14 08:46 | XMS_ITS | Encounter Summary ---
:1955 Author Organization [facility] Address [address] [place] [address]. [place] [address] Care Team Providers Name Role Phone Eldon Conway MD Primary Care Provider Encounter Details Date Type Department Care Team Description 09/04/2006 Results Only [facility] Eldon Conway MD Hospital Results [address] [place] [address] (Wo rk) Social History Tobacco [...] Procedure Name Priority Date/Time Associated Diagnosis Comme [facility] MAMMOGRAM, Routine 09/04/2006 9:39 AM Results for this SCREENING BILATERAL CDT procedur e are in the results section. documented in this encounter Results MAMMOGRAM, SCREENING (09/04/2006 9:39 AM CDT) Anatomical Region Laterality Modality Other Specimen (Source) Anatomical Collection Method Collection Time Re ceived Time Location / / Volume Laterality 09/04/2006 9:39 AM CDT Impressions 09/17/2006 3:28 PM CDT Exam: Bilateral screening mammography History/Comparison: ??[facility] ?? 07-06-02 Breast parenchyma: Fatty breast tissue d ensity Findings: Negative Impression: Category 1. Negative. This exam was evaluated with the assista nce of computer aided detection (CAD). Eldon Conway MD SPECIAL IMAGING STUDIES documented in this encounter Visit Diagnoses Not on filedocumented in this encounter Care Teams Pilot Relationship Specialty Start Date End Date Eldon Conway MD PCP - General 07/24/01 02/15/18 [address] [place] [address] documented as of this encounter
--- OUTSIDE RECORDS SUMMARY | 2022-05-14 08:47 | XMS_ITS | Encounter Summary ---
:1955 Author Organization [facility] Address [address] [place] [address] Care Team Providers Name Role Phone [facility]on Conway MD Primary Care Provider Reason for Visit Reason Comments Erroneous encounter-disregard Encounter Details Date Type Department Care Team Description 08/18/2003 Orders Only [facility] Eldon Conway ERRONE S [facility] aCthy [place] MD ENCOUNTER--DISREGARD [address] [facility] [id number] [place] [address] (Primary Dx) [place] [address] [phone] Social History Tobacco Use Types Packs/Day Years [...] Primary documented in this encounter Care Teams Sparmaker Relationship Specialty Start Date End Date Eldon Conway MD PCP - General 07/24/01 02/15/18 [address] [place], [place] [id number] documented as of this encounter
--- OUTSIDE RECORDS SUMMARY | 2022-05-14 08:47 | XMS_ITS | Encounter Summary ---
:1955 Author Organization [place] Address [address] [place] [address] Care Team Providers Name Role Phone Eldon Conway MD Primary Care Provider Reason for Visit Reason Comments Infection - Unresolved sx. Encounter Details Date Type Department Care Team Description 06/06/2003 Telephone [facility] Eldon Conway, Infect ion ( - Clinic [place] Unresolved sx.) [id number] [place] [address] [id number] Social History Tobacco Use Types Packs/Day Years Used Date Smoking Tobacco: Never Alcohol Use Standard Drinks/Week Comments No 0 (1 standard drink = 0.6 oz pure alcoho l) Sex Assigned at Date Recorded Not on file documented as of this encounter Miscellaneous Notes Telephone Encounter - 06/06/2003 11:59 PM BUNDLE BREAKER >> MEREDITH BURGOS FriJun 06, 2003 11:43 AM >> CALL RECEIVED. Contact: #[phone] Tequin rx'd for sinus, UTI and blood shot eyes. Now done w/rx and sx remain. ??? suggestions. Different abx? Meredith Burgos RN documented in this encounter Plan of Treatment Not on filedocumented as of this encounter Visit Diagnoses Not on filedocumented in this encounter Care Teams Bowling Alley Attendant Relationship Specialty Start Date End Date Eldon Conway MD PCP - General 07/24/01 02/15/[id number] [place] [address], [place] [address] documented as of this encounter
--- OUTSIDE RECORDS SUMMARY | 2022-05-14 08:47 | XMS_ITS | Encounter Summary ---
:1955 Author Organization [facility] Address [address] [place] [address] Care Team Providers Name Role Phone Eldon Conway MD Primary Care Provider Reason for Visit Reason Comments Refill Request Encounter Details Date Type Department Care Team Description 03/31/2003 Refill [facility] Eldon Conway MD Refill Request [place] [address] [phone] Social History Tobacco Use Types Packs/Day Years Used Date Smoking Tobacco: Never Alcohol Use Standard Drinks/Week Comments No 0 (1 standard drink = 0.6 oz pure alcoho l) Sex Assigned at Date Recorded Not on file documented as of this encounter Miscellaneous Notes Telephone Encounter - 03/31/2003 11:59 PM CDT >> ROBIN DEL VALLE Doris Mar 31, 2003 9:56 AM >> CALL [...] Primary documented in this encounter Care Teams Wallpaper Inspector And Shipper Relationship Specialty Start Date End Date Eldon Conway MD PCP - General 07/24/01 02/15/18 [address] [place] [address] documented as of this encounter
--- OUTSIDE RECORDS SUMMARY | 2022-05-14 08:47 | XMS_ITS | Encounter Summary ---
:1955 Author Organization [facility] Address [address], [place] [address] Care Team Providers Name Role Phone Unassigned, Provider Primary Care Provider Unavailable Encounter Details Date Type Department Care Team Description 10/09/2010 PN Conversion Only CONVERSION CONVERSION Trav Ahmadi MD [address] [place] [address] Social History Tobacco Use Types Packs/Day Years Used Date Smoking Tobacco: Never Assessed Sex Assigned at Date Recorded Not on file documented as of this encounter Plan of Treatment Not on filedocumented as of this encounter Visit Diagnoses Not on filedocumented in this encounter Care Teams Robotics Systems Engineer Relationship Specialty Start Date End Date Unassigned, Provider PCP - General 02/23/01 09/20/18 [address] [place] [address] documented as of this encounter
--- OUTSIDE RECORDS SUMMARY | 2022-05-14 08:47 | XMS_ITS | Encounter Summary ---
:1955 Author Organization [facility] Address [address] [address] Care Team Providers Name Role Phone Mariaelena Boland MD Primary Care Provider Reason for Referral Procedure/Equipment (Routine) - Incomplete Specialty Diagnoses / Procedures Referred By Contact Refer red To Contact Diagnoses Bilateral leg edema Charisma Lucas, SUPERVISORY CLERK, Procedures Compression stocking thigh length 20-30 mmHg (A6533) INTAKE COORDINATOR [address] [place], [place] [address] Referral ID Status Reason Start Date Expiration Date Visits V isits Requested Authorized [id number] Incomplete 08/29/2021 11/28/2022 1 1 Procedure/Equipment (Routine) - Incomplete Specialty Diagnoses / Procedures Referred By Contact Refer red To Contact Diagnoses Varicose veins of both lower extremities with complications Charisma Lucas, Procedures VL US Lower Extremity Bilat Venous Reflux RANJAN GONZÁLES [address] [place], [place] [address] Referral ID Status Reason Start Date Expiration Date Visits V isits Requested Authorized [id number] Incomplete 08/29/2021 11/28/2022 1 1 Reason for Visit Reason Comments CONSULT Ankle swelling/pain Encounter Details Date Type Department Care Team Description 08/29/2021 Initial Consult Heart & Vascular Charisma Lucas veins of both lower extremities with complications (Primary Dx); [facility] & CELIECER, RANJAN Bilateral leg edema; Vein Clinic [address] [place], [place], [address] [place] [address] [phone] Social History Tobacco Use Types Packs/Day Years [...] a pleasant 66 y.o. female. Lives in [place], [place]. Past medical history includes: no significant [...] of both lower extremities with complications I83.893 [facility] Lower Extremity Bilat Venous Reflux 2. Bilateral [...] Vascular Surgery 4:27 PM 08/29/2021 Pager # [phone] This dictation was done using voice recognition [...] competent and free of thrombus. Charisma Lucas SUPERVISORY CLERK, INTAKE COORDINATOR RAD VASCULAR US documented in this encounter Visit Diagnoses Diagnosis Varicose veins of both lower extremities with complications - Primary Bilateral leg edema Edema Spider veins Nevus, non-neoplastic Varicose veins of both lower extremities with complications documented in this encounter Care Teams Chemist Organic Relationship Specialty Start Date End Date Mariaelena Boland MD PCP - General Internal Medicine 09/21/181999 [place] [address] documented as of this encounter
--- OUTSIDE RECORDS SUMMARY | 2022-05-14 08:47 | XMS_ITS | Encounter Summary ---
:1955 Author Organization [facility] Address [address] [place] [address]. [place] [address] Care Team Providers Name Role Phone [facility] Conway MD Primary Care Provider Reason for Visit Reason Comments RECHECK FOLLOW UP MEDICATIONS Encounter Details Date Type Department Care Team Description 10/15/2002 Office Visit [facility] JOANN Conway HYPER CHOLESTEROLEM Clinic [place] MD Eldon (Primary Dx) [address] [place] [address] [address] [address] [facility] [phone] [place] [id number] Social History Tobacco Use Types Packs/Day Years Used Date Smoking Tobacco: Never Alcohol Use Standard Drinks/Week Comments No 0 (1 standard drink = 0.6 oz pure alcoho l) Sex Assigned at Date Recorded Not on file documented as of this encounter Last Filed Vital Signs Vital Sign Reading Time Taken Comments Blood Pressure 100/60 10/15/2002 9:15 AM CDT Pulse - - Temperature - - Respiratory Rate - - Oxygen Saturation - - Inhaled Oxygen Concentration - - Weight 59.9 kg (132 lb) 10/15/2002 9:15 AM CDT Height 157.5 cm (5' 2) 10/15/2002 9:15 AM CDT Body Mass Index 24.14 10/15/2002 9:15 AM CDT documented in this encounter Progress Notes 10/15/2002 9:15 AM CDT Danielle is a 47 yo female who comes in for refill of her medication, review of her decreased libidoa nd hot flashes.In addition she has hyperlipidemia takes Lipitor and is doing well. She has lost 3 breanna nds with exercise and has greater muscle mass. With meds her libido is slightly up. PMH hyster Soci al not , dating ROS heent neg neck neg CV neg Pulm neg GI neg neg Ortho neg Neuro neg Endo pos allergies pos Exam heent neg Lungs clear CV neg Abd neg Ext neg Lab lipids,hepatic A ssessment: hypercholesterolemia decreased libido medication refill hot flashes Plan check labs Estr atest alternate 1 then 2 pills everyother day RTC in 1 month documented in this encounter Nursing Notes 10/15/2002 9:15 AM CDT >> YOKASTA FORBES 10/15/2002 9:51 am Yokasta Forbes LPN documented in this encounter Plan of Treatment Not on filedocumented as of this encounter Procedures Procedure Name Priority Date/Time Associated Diagnosis Comme nts HCL HEPATIC PANEL Routine 10/15/2002 10:21 Pure Hypercholester olem Results for this AM CDT procedure are i n the results section. CL AFF A.M.A. Routine 10/15/2002 10:21 Pure Hypercholesterolem Results for this LIPID PANEL AM CDT procedure are i n the results section. documented in this encounter Results A.M.A. HEPATIC PANEL (10/15/2002 10:21 AM CDT) athologist Signature Bilirubin 0.0 0.0 - 0.3 [facility] Conjugated mg/dL [facility] Bilirubin Delta 0.0 0.0 - 0.4 [facility] mg/dL [facility] Bilirubin Total 0.4 0.2 - 1.3 [facility] mg/dL [facility] Albumin 4.4 3.3 - 4.6 [facility] [facility] g/dL [facility] Protein Total 7.3 6.0 - 8.2 [place] [facility] g/dL [facility] Alkaline 45 40 - 150 [facility] Phosphatase U/L [facility] ALT 32 0 - 50 U/L [facility] AST 21 0 - 45 U/L [facility] Specimen Anatomical Collection Method Collection Time Receive d Time (Source) Location / / Volume Laterality 10/15/2002 10:21 10/15/2002 AM CDT 10:26 AM CDT [facility] Conway MD LABORATORY Performing Organization Address City/[facility] Code Phon e Number [facility] [address] [place] [address] [facility] A.M.A. LIPID PANEL (10/15/2002 10:21 AM CDT) athologist Signature Cholesterol 156 <200 mg/dL [facility] Comment: Cholesterol Reference Range: <200 ??The NCEP recommends further ? evaluation of: ? 1. ??Patients with cholesterol ? greater than 200 mg/dL ? if additional risk facto rs ? are present. ? 2. ??All patients with a ? cholesterol greater than ? 240 mg/dL. Triglycerides 94 <150 mg/dL [facility] HDL Cholesterol 50 >40 mg/dL [facility] LDL Cholesterol Calculated 88 <130 mg/dL [facility] VLDL-Cholesterol 19 0 - 30 mg/dL [facility] Cholesterol/HDL Ratio 3 0 - 5 [facility] Specimen Anatomical Collection Method Collection Time Receive d Time (Source) Location / / Volume Laterality 10/15/2002 10:21 10/15/2002 AM CDT 10:26 AM CDT Eldon Conway MD LABORATORY Performing Organization Address City/[facility]/ZIP Code Phon e Number [facility] [address] [place] [address] [facility] documented in this encounter Visit Diagnoses Diagnosis Pure hypercholesterolemia - Primary documented in this encounter Care Teams Design Manager Relationship Specialty Start Date End Date Eldon Conway MD PCP - General 07/24/01 02/15/18 [address] [place] [address] documented as of this encounter
--- OUTSIDE RECORDS SUMMARY | 2022-05-14 08:47 | XMS_ITS | Encounter Summary ---
:1955 Author Organization [facility] Address [address] [place] [address] Care Team Providers Name Role Phone [facility]on Conway MD Primary Care Provider Reason for Visit Reason Comments Sinus Problem Rhinorrhea, sinus pressure, fatigue for 2 months. Denies fevers, body aches. Encounter Details Date Type Department Care Team Description 01/31/2003 Office Visit [facility] Bhavin Pina S INUSITIS NOS; Clinic [facility] MD Jesse RHINITIS DUE TO POLLEN [address] [place] [address] [place] [phone] [facility] [phone] [place] [address] Social History Tobacco Use Types [...] pollen documented in this encounter Care Teams Gusset Maker Relationship Specialty Start Date End Date [facility]on Conway MD PCP - General 07/24/01 02/15/18 [address] [place] [address] documented as of this encounter
--- OUTSIDE RECORDS SUMMARY | 2022-05-14 08:47 | XMS_ITS | Encounter Summary ---
:1955 Author [facility] Address [address], [place] [address] Care Team Providers Name Role Phone Mariaelena Boland MD Primary Care Provider Reason for Visit Reason Comments CONSULT Varicose veins Encounter Details Date Type Department Care Team Description 08/30/2021 Office Visit Bib Marcos, Leg swe lling (Primary [place] [address] MD Dx) Vascular Surgery [address] [facility] [address] [place] [phone] Social History Tobacco Use Types Packs/Day Years [...] entirety. There is no evidence of incompetent environmental remediation consultant veins at any level. There is evidence [...] entirety. There is no evidence of incompetent environmental remediation consultant veins at any level. There is evidence [...] limb documented in this encounter Care Teams Pizza Delivery Relationship Specialty Start Date End Date Mariaelena Boland MD PCP - General Internal Medicine 09/21/18[address] [place] [address] documented as of this encounter
--- OUTSIDE RECORDS SUMMARY | 2022-05-14 08:47 | XMS_ITS | Encounter Summary ---
:1955 Author Organization [facility] Address [address] [place] [address] Care Team Providers Name Role Phone Eldon Schwartz MD Primary Care Provider Reason for Visit Reason Comments Patient Inquiry sx's not better Encounter Details Date Type Department Care Team Description 06/15/2003 Telephone [facility] Eldon Schwartz Patien t Inquiry (sx's [facility] [place] not better) [address] [place] [id number] Social History Tobacco Use Types Packs/Day Years Used Date Smoking Tobacco: Never Alcohol Use Standard Drinks/Week Comments No 0 (1 standard drink = 0.6 oz pure alcoho l) Sex Assigned at Date Recorded Not on file documented as of this encounter Miscellaneous Notes Telephone Encounter - 06/15/2003 11:59 PM CARE MANAGER >> ELDON SCHWARTZ [facility] Jun 16, 2003 5:56 PM HAVE TRY PREDNISONE 20 MG FOR 7 DAYS. >> ALBARO Farmer Jun 15, 2003 4:30 PM >> CALL RECEIVED. Contact: Akil#[phone] OK message Was on tequin initally, then cefzil 06/06 all done with that med, still has all the same sx's: sinus pain and drainage; yellow-green, RUGGIERO, flushed, burning with urination, bloodshot red eyes. Pt wondering what else she can do? Albaro Thomas RN documented in this encounter Plan of Treatment Not on filedocumented as of this encounter Visit Diagnoses Not on filedocumented in this encounter Care Teams Settlement Technician Relationship Specialty Start Date End Date [facility] Schwartz MD PCP - General 07/24/01 02/15/18 [address] [place] [address] documented as of this encounter
--- OUTSIDE RECORDS SUMMARY | 2022-05-14 08:47 | XMS_ITS | Encounter Summary ---
:1955 Author Organization [facility] Address [address] [place] [address] Care Team Providers Name Role Phone [facility]on Schwartz MD Primary Care Provider Reason for Visit Reason Comments Refill Request Encounter Details Date Type Department Care Team Description 11/05/2002 Telephone [facility] Eldon Schwartz MD Refill Request [place] [address] [phone] Social History Tobacco Use Types Packs/Day Years [...] clafification. please clarify and call arianna saeed [phone] Katharine Del Valle LPN documented in this encounter Plan of Treatment Not on filedocumented as of this encounter Visit Diagnoses Not on filedocumented in this encounter Care Teams Second Officer Relationship Specialty Start Date End Date Eldon Schwartz MD PCP - General 07/24/01 02/15/18 [address] [place] [address] documented as of this encounter
--- OUTSIDE RECORDS SUMMARY | 2022-05-14 08:47 | XMS_ITS | Encounter Summary ---
:1955 Author Organization [facility] Address [address] [place] [address] Care Team Providers Name Role Phone [facility]on Conway MD Primary Care Provider Reason for Visit Reason Comments Medication Request - Pt desires herpes med. Encounter Details Date Type Department Care Team Description 04/28/2003 Telephone [facility] Eldon Conway, Medica tion Request ( Clinic Cathy [place] MD - Pt desires herpes [address] [place] [id number] [place] [address] med.) [place] [phone] Social History Tobacco Use Types Packs/Day Years Used Date Smoking Tobacco: Never Alcohol Use Standard Drinks/Week Comments No 0 (1 standard drink = 0.6 oz pure alcoho l) Sex Assigned at Date Recorded Not on file documented as of this encounter Miscellaneous Notes Telephone Encounter - 04/28/2003 11:59 PM CASH GRAIN GROWER >> MEREDITH GOLDEN FriApr 29, 2003 10:17 AM Pt calling to check status of request from yesterday. Needs med JAMES as is in current outbreak. Meredith Golden RN >> MEREDITH GOLDEN Doris Apr 28, 2003 9:24 AM >> CALL RECEIVED. Contact: #[phone] Herpes outbreak. Currently at the beginning of an outbreak. Wondering if may have famvir/valtrex? Meredith Golden RN documented in this encounter Plan of Treatment Not on filedocumented as of this encounter Visit Diagnoses Not on filedocumented in this encounter Care Teams Powder Hand Relationship Specialty Start Date End Date [facility] Conway MD PCP - General 07/24/01 02/15/18 [address] [place] [address] documented as of this encounter
--- OUTSIDE RECORDS SUMMARY | 2022-05-14 08:47 | XMS_ITS | Encounter Summary ---
:1955 Author Organization [facility] Address [address] [place] [address] Care Team Providers Name Role Phone Eldon Schwartz MD Primary Care Provider Reason for Referral - Closed Specialty Diagnoses / Procedures Referred By Contact Refer red To Contact Diagnoses Hypo[place] [address] [address] [place], [place] [address] Referral ID Status Reason Start Date Expiration Date Visits Requ ested Visits Authorized [id number] Closed 01/18/2003 06/08/2011 1 1 Reason for Visit Reason Comments Physical Encounter Details Date Type Department Care Team Description 01/18/2003 Office Visit [facility] Eldon Schwartz ROUTIN E MEDICAL EXAM (Primary Dx); Clinic Cathy Wadsworth MD ACUTE NASOPHARYNGITIS; [address] [place] [id number] [place] [address] [place] [address] [phone] Social History Tobacco Use Types Packs/Day Years [...] Number of children: Social History Main To [facility] Tobacco Use: Never Alcohol Use: [...] no t available. Eldon Schwartz MD REFERRAL Pal LIPID PANEL (01/18/2003 10:44 AM CDT) athologist Signature Cholesterol 164 <200 mg/dL [facility] Comment: Cholesterol Reference Range: <200 ??The NCEP recommends further ? evaluation of: ? 1. ??Patients with cholesterol ? greater than 200 mg/dL ? if additional risk facto rs ? are present. ? 2. ??All patients with a ? cholesterol greater than ? 240 mg/dL. Triglycerides 48 <150 mg/dL [facility] HDL Cholesterol 63 >40 mg/dL [facility] LDL Cholesterol Calculated 92 <130 mg/dL [facility] VLDL-Cholesterol 10 0 - 30 mg/dL [facility] Cholesterol/HDL Ratio 3 0 - 5 [facility] Specimen Anatomical Collection Method Collection Time Receive d Time (Source) Location / / Volume Laterality 01/18/2003 10:44 01/18/2003 AM CDT 10:45 AM CDT Eldon Schwartz MD LABORATORY Performing Organization Address City/State/ZIP Code Phon e Number [facility] [address] [place] [address] [facility] CBC WITH PLATELETS (01/18/2003 10:44 AM CDT) athologist Signature WBC 5.8 4.0 - 11.0 [place] 10e9/L [facility] RBC Count 4.43 3.8 - 5.2 [place] 10e12/L [facility] Hemoglobin 14.3 11.7 - [place] 15.7 g/dL [facility] Hematocrit 42.1 35.0 - [facility] 47.0 % [facility] MCV 95 78 - 100 [facility] fl [facility] MCH 32.3 26.5 - [facility] 33.0 pg [facility] MCHC 34.0 32.0 - [facility] 36.0 g/dL [facility] RDW 12.5 10.0 - [facility] 15.0 % [facility] Platelet Count 252 150 - 450 [facility] 10e9/L [facility] Specimen Anatomical Collection Method Collection Time Receive d Time (Source) Location / / Volume Laterality 01/18/2003 10:44 01/18/2003 AM CDT 10:45 AM CDT Eldon Schwartz MD LABORATORY Performing Organization Address City/[facility]/ZIP Code Phon e Number [address] [address] [facility] TSH W/FREE T4 REFLEX (01/18/2003 10:44 AM CDT) P athologist Signature TSH 0.60 0.4 - 5.0 [facility] mU/L [facility] Specimen Anatomical Collection Method Collection Time Receive d Time (Source) Location / / Volume Laterality 01/18/2003 10:44 01/18/2003 AM CDT 10:45 AM CDT Eldon Schwartz MD LABORATORY Performing Organization Address City/[facility]/ZIP Code Phon e Number [address] [address] [facility] UA MICRO IF POSITIVE (01/18/2003 10:44 AM CDT) Patholo gist Method Time Signature Color Urine Yellow [facility] Appearance Urine Clear [facility] Glucose Urine Negative NEG mg/dL [facility] Bilirubin Urine Negative NEG [facility] Ketones Urine Negative NEG mg/dL [facility] Specific [place] 1.020 1.001 - [place] Urine 1.035 [facility] Blood Urine Negative NEG [facility] pH Urine 6.5 5.0 - 7.0 [place] pH [facility] Protein Albumin Negative NEG mg/dL [place] Urine [facility] Urobilinogen 0.2 0.2 - 1.0 [place] Urine EU/dL [facility] Nitrite Urine Negative NEG [facility] Leukocyte Negative NEG [place] Esterase Urine [facility] Source Midstream [place] Urine [facility] Specimen Anatomical Collection Method Collection Time Receive d Time (Source) Location / / Volume Laterality 01/18/2003 10:44 01/18/2003 AM CDT 10:45 AM CDT Eldon Schwartz MD LABORATORY Performing Organization Address City/State/ZIP Code Phon e Number [facility] [address] [place] [address] [facility] A.M.A. COMPREHENSIVE MET.PANEL (01/18/2003 10:44 AM CDT) P athologist Signature Sodium 143 133 - 144 [facility] mmol/L [facility] Potassium 4.7 3.4 - 5.3 [facility] mmol/L [facility] Chloride 105 94 - 109 [place] mmol/L [facility] Carbon Dioxide 28 20 - 32 [place] mmol/L [facility] Anion Gap 10 6 - 17 [place] mmol/L [facility] Glucose 88 60 - 115 [place] mg/dL [facility] Urea Nitrogen 14 5 - 24 [facility] mg/dL [facility] Creatinine 0.8 0.6 - 1.3 [facility] mg/dL [facility] Calcium 9.1 8.5 - 10.4 [place] mg/dL [facility] Bilirubin Total 0.5 0.2 - 1.3 [place] mg/dL [facility] Albumin 4.2 3.3 - 4.6 [place] g/dL [facility] Protein Total 7.5 6.0 - 8.2 [place] g/dL [facility] Alkaline 51 40 - 150 [place] Phosphatase U/L [facility] ALT 22 0 - 50 U/L [facility] AST 23 0 - 45 U/L [facility] Specimen Anatomical Collection Method Collection Time Receive d Time (Source) Location / / Volume Laterality 01/18/2003 10:44 01/18/2003 AM CDT 10:45 AM CDT Eldon Schwartz MD LABORATORY Performing Organization Address City/[facility] Code Phon e Number [address] [address] [facility] LAB A THIN LAYER PAP SCREEN (01/18/2003 12:00 AM CDT) Component Value Ref Test Analysis Performed At [facility] Range Method Time Signature Copath Report Patient Name: DANIELLE WALDROP MR#: [id number] Specimen #: [id number] Collected: 01/18/03 Received: 01/21/03 Reported: 01/24/03 11:45 Ordering Phy(s): ELDON SCHWARTZ SPECIMEN/STAIN PROCESS: Pap thin layer prep screening ? Pap-Cyto x 1, Reflex HPV x 1 SOURCE: Vaginal ---- Pap thin layer prep screening SPECIMEN ADEQUACY: Satisfactory for evaluation. -Transitional zone component absent. CYTOLOGIC INTERPRETATION: Negative for Intraepithelial Lesion or Malignancy Electronically signed out by: CHEKO Huang (ASCP) Processed and screened at [facility] CLINICAL HISTORY: Partial Hysterectomy, Previous normal pap: 12/07/01, Specimen (Source) Anatomical Collection Method Collection Time Re ceived Time Location / / Volume Laterality 01/18/2003 01/21/2003 12:0 7 PM CDT Eldon Schwartz MD LABORATORY Performing Organization Address City/[facility]/ZIP Code Phon e Number [facility] documented in this encounter Visit Diagnoses Diagnosis Routine general medical examination at a health care facility - Primary Acute nasopharyngitis (common cold) Hypoactive sexual desire disorder documented in this encounter Care Teams Live In Housekeeper Relationship Specialty Start Date End Date Eldon Schwartz MD PCP - General 07/24/01 02/15/18 [address] [place] [address] documented as of this encounter
--- OUTSIDE RECORDS SUMMARY | 2022-05-14 08:47 | XMS_ITS | Encounter Summary ---
:1955 Author Organization [facility] Address [address] [place] [address] Care Team Providers Name Role Phone Eldon Schwartz MD Primary Care Provider Reason for Visit Reason Comments Eye Problem eyes get blood shot every da y Sinus Problem facial pain continuing UTI burning on urination Encounter Details Date Type Department Care Team Description 06/28/2003 Office Visit [facility] Eldon Schwartz URINAR Y SYS SYMPTOM Clinic [place] MD NEC (Primary Dx) [address] [address] [id number] Social History Tobacco Use Types Packs/Day Years Used Date Smoking Tobacco: Never Alcohol Use Standard Drinks/Week Comments No 0 (1 standard drink = 0.6 oz pure alcoho l) Sex Assigned at Date Recorded Not on file documented as of this encounter Last Filed Vital Signs Vital Sign Reading Time Taken Comments Blood Pressure 110/60 06/28/2003 9:00 AM FOAM FABRICATOR Pulse - - Temperature - - Respiratory Rate - - Oxygen Saturation - - Inhaled Oxygen Concentration - - Weight - - Height - - Body Mass Index - - documented in this encounter Progress Notes 06/28/2003 9:00 AM FOAM FABRICATOR Addended by: ELDON SCHWARTZ on: 08/18/2003,10:51 AM [...] Urinary Sys Symptom Results for this POSITIVE FOAM FABRICATOR Nec procedure are i n the results section. documented in this encounter Results (ABNORMAL) UA MICRO IF POSITIVE (06/28/2003 9:10 AM FOAM FABRICATOR) [facility] Method Time Signature Color Urine Yellow [facility] Appearance Urine Clear [facility] Glucose Urine Negative NEG mg/dL [facility] Bilirubin Urine Negative NEG [facility] Ketones Urine Trace (A) NEG mg/dL [facility] Specific [place] 1.025 1.001 - [place] Urine 1.035 [facility] Blood Urine Negative NEG [facility] pH Urine 6.0 5.0 - 7.0 [place] pH [facility] Protein Albumin Negative NEG mg/dL [place] Urine [facility] Urobilinogen 0.2 0.2 - 1.0 [place] Urine EU/dL [facility] Nitrite Urine Negative NEG [facility] Leukocyte Negative NEG [place] Esterase Urine [facility] Source Midstream [place] Urine [facility] Specimen Anatomical Collection Method Collection Time Receive d Time (Source) Location / / Volume Laterality 06/28/2003 9:10 AM 9:16 FOAM FABRICATOR AM FOAM FABRICATOR Eldon Schwartz MD LABORATORY Performing Organization Address City/State/ZIP Code Phon e Number [facility] [id number] [place] [address] [facility] documented in this encounter Visit Diagnoses Diagnosis Urinary sys symptom NEC - Primary Other symptoms involving urinary system documented in this encounter Care Teams Mold Presser Relationship Specialty Start Date End Date Eldon Schwartz MD PCP - General 07/24/01 02/15/18 [address] [place] [address] documented as of this encounter
--- OUTSIDE RECORDS SUMMARY | 2022-05-14 08:47 | XMS_ITS | Clinical Summary ---
:1955 Author Organization [facility] Address [address] [place] [address] Care Team Providers Name Role Phone Mariaelena Boland MD Primary Care Provider Source Comments You are receiving this document as you are listed as the primary care provider,follow-up provider, or the patient has been referred to you for consultation.This is in compliance with the Medicare and Medicaid EHR Incentive Program,which states Providers who transition their patient to another setting of careor provider of care or refers their patient to another provider of care shouldprovide summarycare record for each transition of care or referral. [facility] Allergies No known active allergies Medications Medication Sig Dispensed Refills Start Date End Date Status unknown medication Indications: PN: 0 03/29/2006 Active unknown medication Indications: PN: 0 12/02/2008 Active aspirin, enteric-coated Take by mouth 0 Active 81 MG enteric coated daily. tablet simvastatin (ZOCOR) 10 Take 10 mg by 0 Active MG tablet mouth every other day. Immunizations Name Administration Dates Next Due DT Ped 08/07/1987 Social History Tobacco Use Types Packs/Day Years Used Date Smoking Tobacco: Never Sex Assigned at Date Recorded Not on file Last Filed Vital Signs Vital Sign Reading Time Taken Comments Blood Pressure 143/95 08/30/2021 2:49 PM CDT Pulse 81 08/30/2021 2:49 PM CDT Temperature 37.1 ??C (98.8 ??F) 12/02/2008 7:31 PM CDT C: 37 .1 C Respiratory Rate 20 12/02/2008 7:31 PM CDT Oxygen Saturation - - Inhaled Oxygen Concentration - - Weight - - Height - - Body Mass Index - - Plan of Treatment Health Maintenance Due Date Last Done Comments Colon Cancer Screening Plan 1955 Due Hep C Screening (Preventive 1955 Services) Mammogram 1955 COVID-19 Vaccine (#1) 1955 Adult Preventive Visit 1973 DTaP/Tdap/Td (2 - Tdap) 08/06/1997 08/07/1987 Cholesterol 08/23/2002 08/23/1997 Dexa 2020 Influenza (#1) 2022 02/15/2021, 03/25/2020, 03/16/2019, Additional history exists Pneumococcal 65+ Yrs (2 - 02/13/2022 02/13/2021 PPSV23) Zoster/Shingles Completed 11/19/2019, 06/14/2019, 02/01/2016 HepA Aged Out No longer eligib le based on patient 's age to complete this topic HepB Aged Out No longer eligib le based on patient 's age to complete this topic Hib Aged Out No longer eligib le based on patient 's age to complete this topic IPV (Polio) Aged Out No longer eligib le based on patient 's age to complete this topic MCV4 Aged Out No longer eligib le based on patient 's age to complete this topic Insurance Payer Benefit Plan / Subscriber ID Effective Dates Phone Addre ss Type Group BCBS BCBS OUT OF [id number] 2021-Present [address] [address] [place] [address] (Home) [place] [address] Danielle Waldrop Personal/Family Self [address] [place] [address] (Home) [place] [address] Care Teams Thermostat Machine Tender Relationship Specialty Start Date End Date Mariaelena Boland MD PCP - General Internal Medicine 09/21/18[address] [place] [address]
--- OUTSIDE RECORDS SUMMARY | 2022-05-14 08:47 | XMS_ITS | Encounter Summary ---
:1955 Author Organization [facility] Address [address], [place] [address] Care Team Providers Name Role Phone Unassigned, Provider Primary Care Provider Unavailable Encounter Details Date Type Department Care Team Description 12/02/2008 PN Conversion Only [place] [address] [facility] [address] [place] [address] [place] [address] Social History Tobacco Use Types Packs/Day Years [...] Complete Blood Count-W/Diff (12/02/2008 7:54 PM CDT) [facility] Method Time Signature White Blood Cell [...] - HP CONVERSION Hemoglobin Conc 36.5 gm/dL [place] RDW 12.5 11.0 - HP CONVERSION 15.0 [...] Trav Ahmadi MD LAB_1 Performing Organization Address City/[facility] Code Phon e Number HP CONVERSION (ABNORMAL) Urinalysis Routine(Micro If Pos) (12/02/2008 7:54 PM CDT) [facility] Info Method Time Signature Turbidity Clear No normal [...] Specific 1.025 1.005 - 25 HP CONVERSION [place] Specimen (Source) Anatomical Collection Method Collection Time Re ceived Time Location / / Volume Laterality 12/02/2008 7:54 PM CDT Trav Ahmadi MD LAB_1 Performing Organization Address City/[facility]/ZIP Code Phon e Number HP CONVERSION (ABNORMAL) Urinalysis Microscopic (12/02/2008 7:54 PM CDT) [facility] Info Method Time Signature White Blood 5-9/HPF (A) [...] on filedocumented in this encounter Care Teams Machine Maintenance Repairer Relationship Specialty Start Date End Date Unassigned, Provider PCP - General 02/23/01 09/20/[address] [place] [address] documented as of this encounter
--- OUTSIDE RECORDS SUMMARY | 2022-05-14 08:47 | XMS_ITS | Encounter Summary ---
:1955 Author Organization [facility] Address [address] [place] [address]. [place] [address] Care Team Providers Name Role Phone Eldon Conway MD Primary Care Provider Reason for Visit Reason Comments Pre-Op Exam for surgery on 08/24/03 for LEFT shoulder Encounter Details Date Type Department Care Team Description 08/19/2003 Office Visit [facility] Eldon Conway, PREOP EXAM OTHER Clinic Cathy Wadsworth MD SPECIFIED (Primary Dx) [address] [facility] [address] [place] [address] [phone] Social History Tobacco Use Types Packs/Day Years Used Date Smoking Tobacco: Never Alcohol Use Standard Drinks/Week Comments No 0 (1 standard drink = 0.6 oz pure alcoho l) Sex Assigned at Date Recorded Not on file documented as of this encounter Last Filed Vital Signs Vital Sign Reading Time Taken Comments Blood Pressure 110/74 08/19/2003 2:30 PM REFRACTORY SPECIALIST Pulse 64 08/19/2003 2:30 PM REFRACTORY SPECIALIST Temperature 36.9 ??C (98.4 ??F) 08/19/2003 2:30 PM REFRACTORY SPECIALIST Respiratory Rate 18 08/19/2003 2:30 PM REFRACTORY SPECIALIST Oxygen Saturation - - Inhaled Oxygen Concentration - - Weight 61.2 kg (135 lb) 08/19/2003 2:30 PM REFRACTORY SPECIALIST Height 157.5 cm (5' 2) 08/19/2003 2:30 PM REFRACTORY SPECIALIST Body Mass Index 24.69 08/19/2003 2:30 PM REFRACTORY SPECIALIST documented in this encounter Progress Notes 08/19/2003 2:30 PM REFRACTORY SPECIALIST PATIENT HEALTH QUESTIONNAIRE Danielle Waldrop 1955 Date of Surgery: 08/24/03 Niko capellan of Surgery: [facility] Surgeon: Dr. Villagran Phone number to reach patient on da y of surgery: [phone] 1. Any aspirin compounds in last 2 weeks: no 2. Pt. or any family mem roseann with prolonged bleeding, abnormal bleeding after surgery or dental extractions, bruise easily: n o 3. Any problems with blood pressure or heart: no 4. Any trouble with breathing or taking medicat ion for breathing: no 5. Any loose teeth, false teeth, dentures, bridges, or capped teeth: yes - capped teeth (4) 6. Any seizures, convulsions, blackout spells or headaches: yes - sinus headaches 7. Any jaundice, hepatitis or blood transfusion reactions: no 8. Allergies: Review of the patien t's allergies finds: Seasonal Allergies 9. Within last year, any cortisone, steroids or ACTH: yes - cortisone 10. Any tranquilizers or nerve pills in last two w eeks: no 11. Patient or any blood relatives with a reaction to local or general anesthetic: no 12. Any medications for: Heart: no Lungs: no Diabetes: no Kidney: no Blood Pressure: no 13. Alcohol and Tobacco Use: Tobacco Use: Never Alcohol Use: No 14. Do you have a Health Care Directive or Living Will: no 15. List the name of someone that can speak on patient's behalf if patient unable to do so: Artemio Benjie () Questions answered by: Relationship: self ------- Pre Op Exam: August 19, 2003 Danielle Waldrop is an 48 year old female here for preop physical. LMP Hysterectomy PRESENT HISTORY: Reason for admission:L shoulder surge ry Onset of Illness: 05/1992 Type of Surgery Anticipated: L shoulder arthroscopy Type of Anesthesia A nticipated: General Active Medications as of 08/19/2003: NASACORT AQ 55 MCG/ACT NA AERS, 2 puff eac h nostril QD (Once per day), D: 1, R: 11 TESTOSTERONE PROPIONATE 2 % TD CREA, apply daily, D: , R: F LONASE INHA 50 MCG/DOSE NA, 2 SPRAYS IN EACH NOSTRIL QD (Once per day), D: 1, R: 2 UNKNOWN MED DOSAGE , progest cream 10% cream use as directed, D: , R: 0 Immunization History: td (adult) 12/23/2001 Any Aspirin within 10 days? No Any anti-platelet therapy within 10 days? (eg, Aggrenox, Persantine, Plavix, Ticlid) No Any Coumadin or Heparin derivatives within 10 days? No FAMILY HISTOR Y: Review of patient's family history indicates: Heart Paternal Grandfathe r Comment: heart attack early 50's Heart Father Comment: heart attack at 76 Alzheimers Mother Osteoporos is Mother Depression Mother No family history of malignant hyperthermia. PAST MEDICAL HISTORY: There is no previous medical his tory on file. PAST SURGICAL HISTORY: Review of patient's past surgical history indicates: NONSPEC [facility] PROCEDURE Comment: hysterectomy Review of the patient 's allergies finds: Seasonal Allergies Transfusion reactions: No prior transfusions Bleeding tendencies:no period REVIEW OF SYSTEMS: Cardiovascular: NORMAL Re spiratory: NORMAL Gastrointestinal: NORMAL Genitourinary: NORMAL PHYSICAL EXAM: General Appearance: healthy, alert and no distress Head: Normocephalic. No masses, lesions, tenderness or abnormalities E yes: normal Ears: negative Nose: Nares normal Mouth: Lips, mucosa, and tongue normal. Teeth and gums normal. Neck: Neck supple. No adenopathy. Thyroid symmetric, normal size,, Carotids without bruits. L ymphatics: Cervical and inguinal nodes normal for age. Chest: Clear to auscultation Breast: Not done. Heart:regular rate and rhythm and no murmurs, clicks, or gallops Lungs: negative, Percussion normal. Good diaphragmatic excursion. Lungs clear Abdomen: Abdomen soft, non-tender. BS normal. No masses, o rganomegaly Genitals: Deferred Extremities: per surgery Musculoskeletal: Spine ROM normal. Muscular s trength intact. Skin: Skin color, texture, turgor normal. No rashes or lesions. Neurological: Gait no rmal. Reflexes normal and symmetric. Sensation grossly WNL. HGB 14.3 01/18/2003 WBC 5.8 01/18/2003 COMMENTS: normal exam except for shoulder IMPRESSION: clear for surgery documented in this encounter Nursing Notes 08/19/2003 2:30 PM CST >> MINNA WOODY 08/19/2003 2:46 pm BP cuff size: regular Minna Woody MA student >> MINNA WOODY 08/19/2003 2:42 pm Pt is having surgery on L shoulder on 08/24/03. documented in this encounter Plan of Treatment Not on filedocumented as of this encounter Procedures Procedure Name Priority Date/Time Associated Comments Diagnosis HCL HEMOGLOBIN Routine 08/19/2003 3:02 PM Preop Exam Other Res ults for this NONLAB REFRACTORY SPECIALIST Specified procedure are i n the results section. documented in this encounter Results HGB (08/19/2003 3:02 PM REFRACTORY SPECIALIST) P athologist Signature Hemoglobin 15.4 11.7 - 15.7 [facility] g/dL [facility] Specimen Anatomical Collection Method Collection Time Receive d Time (Source) Location / / Volume Laterality 08/19/2003 3:02 PM 4 3:11 REFRACTORY SPECIALIST PM REFRACTORY SPECIALIST Eldon Conway MD LABORATORY Performing Organization Address City/State/ZIP Code Phon e Number [facility] [address] [place] [address] [facility] documented in this encounter Visit Diagnoses Diagnosis Other specified pre-operative examinatio n - Primary documented in this encounter Care Teams Bore Mill Operator For Plastic Relationship Specialty Start Date End Date Eldon Conway MD PCP - General 07/24/01 02/15/18 [address] [place] [address] documented as of this encounter
--- OUTSIDE RECORDS SUMMARY | 2022-05-14 08:47 | XMS_ITS | Encounter Summary ---
:1955 Author Organization [place] Address [address] [place] [address] Care Team Providers Name Role Phone Eldon Conway MD Primary Care Provider Encounter Details Date Type Department Care Team Description 08/19/2003 Office Visit [facility] Eldon Conway ERRONE [facility] Cathy Wadsworth MD ENCOUNTER--DISREGARD [address] [facility] [id number] [place] [address] (Primary Dx) [place] [address] [phone] Social History Tobacco Use Types Packs/Day Years Used Date Smoking Tobacco: Never Alcohol Use Standard Drinks/Week Comments No 0 (1 standard drink = 0.6 oz pure alcoho l) Sex Assigned at Date Recorded Not on file documented as of this encounter Progress Notes 08/19/2003 3:30 PM DISTRICT SALES REPRESENTATIVE This encounter was opened in error. Please disregard. documented in this encounter Plan of Treatment Not on filedocumented as of this encounter Visit Diagnoses Diagnosis ERRONEOUS ENCOUNTER--DISREGARD - Primary documented in this encounter Care Teams Fiber Technician Relationship Specialty Start Date End Date Eldon Conway MD PCP - General 07/24/01 02/15/18 [address] [address] [place], [place] [id number] documented as of this encounter
--- OUTSIDE RECORDS SUMMARY | 2022-05-14 08:47 | XMS_ITS | Encounter Summary ---
:1955 Author Organization [facility] Address [address] [place] [address] Care Team Providers Name Role Phone Eldon Conway MD Primary Care Provider Reason for Visit Reason Comments UTI ? UTI Encounter Details Date Type Department Care Team Description 05/27/2003 Office Visit [facility] Eldon Conway DYSURI A (Primary Dx) Clinic [place] [address] [place] [address] [phone] Social History Tobacco Use Types Packs/Day Years Used Date Smoking Tobacco: Never Alcohol Use Standard Drinks/Week Comments No 0 (1 standard drink = 0.6 oz pure alcoho l) Sex Assigned at Date Recorded Not on file documented as of this encounter Last Filed Vital Signs Vital Sign Reading Time Taken Comments Blood Pressure 120/70 05/27/2003 3:15 PM TECHNOLOGY STRATEGIST Pulse - - Temperature - - Respiratory Rate - - Oxygen Saturation - - Inhaled Oxygen Concentration - - Weight - - Height - - Body Mass Index - - documented in this encounter Progress Notes 05/27/2003 3:15 PM TECHNOLOGY STRATEGIST SUBJECTIVE: Danielle Waldrop is a 48 year [...] Primary documented in this encounter Care Teams Ribbon Weaver Relationship Specialty Start Date End Date Eldon Conway MD PCP - General 07/24/01 02/15/18 [address] [place] [address] documented as of this encounter
--- OUTSIDE RECORDS SUMMARY | 2022-05-14 08:47 | XMS_ITS | Encounter Summary ---
:1955 Author Organization [facility] Address [address] [place] [address] Care Team Providers Name Role Phone Eldon Conway MD Primary Care Provider Encounter Details Date Type Department Care Team Description 02/02/2003 Orders Only [facility] MEDICAL EXAM [place] (Primary Dx) [address] [place] [address] Social History Tobacco Use Types Packs/Day Years Used Date Smoking Tobacco: Never Alcohol Use Standard Drinks/Week Comments No 0 (1 standard drink = 0.6 oz pure alcoho l) Sex Assigned at Date Recorded Not on file documented as of this encounter Plan of Treatment Not on filedocumented as of this encounter Procedures Procedure Name Priority Date/Time Associated Diagnosis Comme nts C DEXA, BONE Routine 02/02/2003 4:05 PM Routine Medical Exam R esults for this DENSITY, AXIAL SKEL CDT procedur e are in the results section. documented in this encounter Results DEXA, BONE DENSITY, AXIAL SKEL (02/02/2003 4:05 PM CDT) Anatomical Region Laterality Modality Bone Mineral Density Impressions 02/02/2003 4:05 PM CDT BONE DENSITOMETRY [facility] February 02, 2003 PATIENT: ??Danielle Waldrop CHART: [id number] : ??1955 AGE: ??47 year old SEX: ??female REFERRING PHYSICIAN: ??Eldon Mayer, ?? PROCEDURE: ??Bone density scanning was p erformed using DEXA technology performed on a ColosseoEAS Scanner. ??Reporting is completed in the form of a T-score. ??The T-score represents the st andard deviation from peak bone mass based on a young healthy adult. Crystallography Teacher performing scan: ??Janine Guzman ins REFERENCE T-SCORES: ? Normal ? Greater than -1.0 ? Osteopenia ?-1.0 to -2.5 ? Osteoporosis ?? Less than -2.5 ? RISK FACTORS: ??Perimenopausal, Family h istory of osteoporosis, history of osteopenia. CURRENT TREATMENT: ?? Calcium with Vitam in D, Estrogen, Fosamax FINDINGS: ? Lumbar Spine (L1-L4): ??T-score 0.03 ? Left Femoral Neck: ?? T-score -1.30 ? Comparison is performed to previous DEXA performed on a TreeRing Scanner on 03/31/02 . CURRENT BMD: ??Lumbar Spine: 1.170. ??Fe moral Neck: 0.8605. PREVIOUS BMD: Lumbar Spine: 1.083. Femor al Neck: 0.8519. In the interim, allowing for standardiza tion calculations, there is suggestion of a trend towards i mprovement of the lumbar spine, and no significant elroy nge of the femoral neck. IMPRESSION: Osteopenia of the femoral neck Normal lumbar spine bone mineral density . Mery Swain M.D. Electronically signed Eldon Conway MD SPECIAL IMAGING STUDIES documented in this encounter Visit Diagnoses Diagnosis Routine general medical examination at a health care facility - Primary documented in this encounter Care Teams Store Director Relationship Specialty Start Date End Date Eldon Conway MD PCP - General 07/24/01 02/15/18 [address] [place] [address] documented as of this encounter
--- OUTSIDE RECORDS SUMMARY | 2022-05-14 08:47 | XMS_ITS | Encounter Summary ---
:1955 Author Organization [place] Address [address] [place] [address] Care Team Providers Name Role Phone Eldon Conway MD Primary Care Provider Encounter Details Date Type Department Care Team Description 05/30/2003 Orders Only [facility] Eldon Conway, URIN T RACT INFECTION [facility] [place] (Primary Dx) [address] [address] [phone] Social History Tobacco Use Types Packs/Day Years [...] Comme nts HCL UA MICRO IF Routine 05/27/2003 4:00 PM Urin Tract Infectio n Results for this POSITIVE TOBACCO STEMMER MACHINE Nos procedure are i n the results section. documented in this encounter Results UA MICRO IF POSITIVE (05/27/2003 4:00 PM TOBACCO STEMMER MACHINE) [facility] Method Time Signature Color Urine Yellow [facility] Appearance Urine Clear [facility] Glucose Urine Negative NEG mg/dL [facility] Bilirubin Urine Negative NEG [facility] Ketones Urine Negative NEG mg/dL [facility] Specific [place] 1.015 1.001 - [place] Urine [address] [facility] Blood Urine Negative NEG [facility] pH Urine 7.0 5.0 - 7.[address] [place] [address] [facility] Protein Albumin Negative NEG mg/dL [place] Urine [facility] Urobilinogen 0.2 0.2 - 1.0 [place] Urine EU/dL [facility] Nitrite Urine Negative NEG [facility] Leukocyte Negative NEG [place] Esterase Urine [facility] Source Midstream [place] Urine [facility] Specimen Anatomical Collection Method Collection Time Receive d Time (Source) Location / / Volume Laterality 05/27/2003 4:00 PM 3 4:05 TOBACCO STEMMER MACHINE PM TOBACCO STEMMER MACHINE Eldon Conway MD LABORATORY Performing Organization Address City/State/ZIP Code Phon e Number [facility] [address] [place] [address] [facility] documented in this encounter Visit Diagnoses Diagnosis Urinary tract infection, site not specif ied - Primary documented in this encounter Care Teams Retail Solar Advisor Relationship Specialty Start Date End Date Eldon Conway MD PCP - General 07/24/01 02/15/18 [address] [place] [address] documented as of this encounter
--- OUTSIDE RECORDS SUMMARY | 2022-05-14 08:47 | XMS_ITS | Encounter Summary ---
:1955 Author Organization [facility] Address [address], [place] [address] Care Team Providers Name Role Phone Mariaelena Boland MD Primary Care Provider Reason for Visit Procedure/Equipment (Routine) - Incomplete Specialty Diagnoses / Procedures Referred By Contact Refer red To Contact Diagnoses Varicose veins of both lower extremities with complications Charisma Lucas, Procedures VL US Lower Extremity Bilat Venous Reflux MELTER SUPERVISOR, HAND II BLOCKER [address] [place], [place] [address] Referral ID Status Reason Start Date Expiration Date Visits V isits Requested Authorized [id number] Incomplete 08/29/2021 11/28/2022 1 1 Encounter Details Date Type Department Care Team Description 08/30/2021 [facility] Charisma Silveira Varicose veins of Procedure [place] [address] C, MELTER SUPERVISOR, HAND II BLOCKER both lower Vascular Lab [address] extremities with [address] [place] [phone] Social History Tobacco Use Types Packs/Day Years [...] competent and free of thrombus. Charisma Lucas MELTER SUPERVISOR, HAND II BLOCKER RAD VASCULAR US documented in this encounter Visit Diagnoses Diagnosis Varicose veins of both lower extremities with complications documented in this encounter Care Teams Bottle Labeler Relationship Specialty Start Date End Date Mariaelena Boland MD PCP - General Internal Medicine 09/21/[address] [place] [address] documented as of this encounter
--- OUTSIDE RECORDS SUMMARY | 2022-05-14 08:47 | XMS_ITS | Encounter Summary ---
:1955 Author Organization [place] Address [address] [place] [address] Care Team Providers Name Role Phone Eldon Conway MD Primary Care Provider Reason for Referral - Closed Specialty Diagnoses / Procedures Referred By Contact Refer red To Contact Diagnoses Acute sinusitis, unspecified Bhavin Pina MD [facility] [address] [place] [address] Referral ID Status Reason Start Date Expiration Date Visits Requ ested Visits Authorized [id number] Closed 06/30/2003 06/08/2011 1 1 ALS INTELLIGENCE SUPERINTENDENT Reason for Visit Reason Comments Sinus Problem sinus tenderness, post nasal drip, cheeks feel warm, fatigue x 2months Encounter Details Date Type Department Care Team Description 06/30/2003 Office Visit [facility] Bhavin Pina S INUSITIS NOS [facility] [place] (Primary Dx) [address] [place], [place] [address] [place] [facility] [address] [address] [place] [address] Social History Tobacco Use Types Packs/Day Years Used Date Smoking Tobacco: Never Alcohol Use Standard Drinks/Week Comments No 0 (1 standard drink = 0.6 oz pure alcoho l) Sex Assigned at Date Recorded Not on file documented as of this encounter Last Filed Vital Signs Vital Sign Reading Time Taken Comments Blood Pressure 118/72 06/30/2003 2:00 PM SIGNALS INTELLIGENCE SUPERINTENDENT Pulse - - Temperature 36.8 ??C (98.3 ??F) 06/30/2003 2:00 PM SIGNALS INTELLIGENCE SUPERINTENDENT Respiratory Rate - - Oxygen Saturation - - Inhaled Oxygen Concentration - - Weight 59.9 kg (132 lb) 06/30/2003 2:00 PM SIGNALS INTELLIGENCE SUPERINTENDENT Height 159.4 cm (5' 2.75) 06/30/2003 2:00 PM SIGNALS INTELLIGENCE SUPERINTENDENT Body Mass Index 23.57 06/30/2003 2:00 PM SIGNALS INTELLIGENCE SUPERINTENDENT documented in this encounter Progress Notes 06/30/2003 2:00 PM SIGNALS INTELLIGENCE SUPERINTENDENT Danielle Waldrop, a 48 year old female [...] sinusit is, Results for this CONTRAST AM SIGNALS INTELLIGENCE SUPERINTENDENT unspecified procedure are i n the results section. documented in this encounter Results CONSULT OTOLARYNGOLOGY (10/19/2003) Narrative This result has an attachment that is no t available. Bhavin Pina MD REFERRAL CT SCAN FACE, JAW (07/05/2003 11:23 AM SIGNALS INTELLIGENCE SUPERINTENDENT) Anatomical Region Laterality Modality Other Specimen (Source) Anatomical Collection Method Collection Time Re ceived Time Location / / Volume Laterality 07/05/2003 11:23 AM SIGNALS INTELLIGENCE SUPERINTENDENT Impressions 07/08/2003 7:44 PM SIGNALS INTELLIGENCE SUPERINTENDENT CT SINUS SERIES - 07/05/2003 ?? CLINICAL [...] Primary documented in this encounter Care Teams Adjunct Mathematics Instructor Relationship Specialty Start Date End Date Eldon Conway MD PCP - General 07/24/01 02/15/18 [address] [place] [address] documented as of this encounter
--- OUTSIDE RECORDS SUMMARY | 2022-05-14 08:47 | XMS_ITS | Encounter Summary ---
:1955 Author Organization [facility] Address [address] [place] [address] Care Team Providers Name Role Phone Eldon Conway MD Primary Care Provider Reason for Visit Reason Comments Sinus Problem sinus inf continued x 2 week s Encounter Details Date Type Department Care Team Description 03/15/2003 Office Visit [facility] Eldon Conway, ACUTE MAXILLARY SINUSITIS; Clinic [place] MD ACUTE SINUSITIS NOS [address] [facility] [address] [place] [address] [phone] Social History Tobacco Use Types Packs/Day Years [...] unspecified documented in this encounter Care Teams Psych Assistant Relationship Specialty Start Date End Date Eldon Conway MD PCP - General 07/24/01 02/15/18 [address] [place] [address] documented as of this encounter
--- OUTSIDE RECORDS SUMMARY | 2022-05-14 08:47 | XMS_ITS | Encounter Summary ---
:1955 Author Organization [facility] Address [address], [place] [address] Care Team Providers Name Role Phone Unassigned, Provider Primary Care Provider Unavailable Encounter Details Date Type Department Care Team Description 12/02/2008 Office Visit [facility] [place] [address] [facility] [address] [place] [address] [place], [place] [phone] Social History Tobacco Use Types Packs/Day Years Used Date Smoking Tobacco: Never Assessed Sex Assigned at Date Recorded Not on file documented as of this encounter Last Filed Vital Signs Vital Sign Reading Time Taken Comments Blood Pressure 147/90 12/02/2008 7:31 PM CDT Pulse 85 12/02/2008 7:31 PM CDT Temperature 37.1 ??C (98.8 ??F) 12/02/2008 7:31 PM CDT C: 37 .1 C Respiratory Rate 20 12/02/2008 7:31 PM CDT Oxygen Saturation - - Inhaled Oxygen Concentration - - Weight - - Height - - Body Mass Index - - documented in this encounter Progress Notes Trav Ahmadi MD - 12/02/2008 12:01 AM CDT Progress Notes signed by Trav Ahmadi MD at 12/05/08 0818 Author: Trav Ahmadi MD Service: (none) Author Type: Physician Filed: 09/29/10 1427 Note Time: 12/02/08 0001 Status: Signed Straight Knife Machine Cutter: Trav Ahmadi MD (Physician) NAME: DANIELLE ROBB MR#: [id number] ACCT: [id number] VISIT: [id number] DICTATING CLINICIAN: Trav Ahmadi MD CONFIRM #: [id number] LOC: 520 CLINIC PROGRESS NOTE DATE OF VISIT: 12/02/2008 SUBJECTIVE: : 1955. The patient is a 53-year-old female who complains of right-sided abdominal pain of short duration. Symptoms have been somewhat intermittent, they started two days ago with dizziness as well. If she sits quietly for awhile it sometimes improves. She had an attack on 11/30, lasting 2-3 hours, and it pretty much went away, but this afternoon it started again at 2:30 p.m., with a dull ache, which is building, with nausea. Pain is dull, but it also has waves with it as well, earlier, and now is a steady pain. She has some nausea. She had two bowel movements today, before the pain started. She has no urinary symptoms. Appetite is way down since just before the pain started. She has cold sweats. I asked if jarring caused pain, and she did not have any jarring with car riding. PAST MEDICAL HISTORY: She is just on hormone creams for a decreased libido. She has had a previous history of tonsillectomy, hysterectomy, tubal ligation, and three obstetrical admissions. Her injury is a fractured arm as a child. FAMILY HISTORY: Her father had diabetes, high cholesterol, heart disease, and of same. Mother of heart disease in her late 80s. She had gallbladder as well. She has no siblings. SOCIAL HISTORY: She does not drink or smoke. She is . Her 's health is okay. 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 She does no exercise, her diet is not very good either. REVIEW OF SYSTEMS: Was unremarkable, except for a high cholesterol. OBJECTIVE: VS: BP: 147/90. T: 98.8. P: 85. R: 20. Pain is 5/10. She is a nonsmoker. Her medical care is elsewhere, at the [facility]. NECK: Negative. CHEST AND LUNGS: Clear. HEART: Rate and rhythm unremarkable. ABDOMEN: Not distended. Bowel sounds were somewhat diminished. She had no rebound and only very minimal guarding in the right lower quadrant. The Mejia's sign was negative. A pressure over McBurney's point showed much more tenderness than expected with these findings thus far. For this reason, a CT was done, which showed a retrocecal, inflamed appendix. CBC showed a white count of 14,000, with a left shift. Her urinalysis was otherwise unremarkable, except for concentrated urine, and a few white cells in the urine. ASSESSMENT: Acute appendicitis. PLAN: Refer to [facility] ER; physician notified. CT report called by MARIA ELENA LE:[id number] C: 12/03/08 10:39 CONFIRM #: [id number] documented in this encounter Plan of Treatment Not on filedocumented as of this encounter Procedures Procedure Name Priority Date/Time Associated Diagnosis Comme nts CT PELVIS W IV CONT Routine 12/02/2008 9:20 PM Re sults for this CDT procedure are i n the results section. CT ABD W IV CONT Routine 12/02/2008 9:20 PM Resul ts for this CDT procedure are i n the results section. documented in this encounter Results CT Abd W IV Cont (12/02/2008 9:20 PM CDT) Anatomical Region Laterality Modality Abdomen, Pelvis Other Specimen (Source) Anatomical Location Collection Method / Collectio n Time Received Time / Laterality Volume Impressions 12/02/2008 9:20 PM CDT : ??Findings consistent with appendicitis. [id number]/loyola Dictating OSEAS TSAI RADIOLOGIST Narrative 12/02/2008 9:[address] abdomen and pelvis were performed with 100 mL intravenous Optiray and oral contrast. ??Liver, spleen, adre nals, kidneys, and pancreas appear normal. ??In the right lower quad rant, the appendix is dilated and mildly thick-walled, with surroundin g inflammatory change consistent with appendicitis. ??The uter us is absent. ??The pelvic structures are otherwise normal. Procedure Note Oseas Rivera - 08/15/2016Formattin g of this note might be different from the original. CT abdomen and pelvis were performed wit h 100 mL intravenous Optiray and oral contrast. Liver, spleen, adrena ls, kidneys, and pancreas appear normal. In the right lower quadra nt, the appendix is dilated and mildly thick-walled, with surroundin g inflammatory change consistent with appendicitis. The uterus is absent. The pelvic structures are otherwise normal. IMPRESSION : Findings consistent with appendicitis. [id number]/nir Dictating OSEAS TSAI RADIOLOGIST Trav Ahmadi MD RAD CT CT Pelvis W IV Cont (12/02/2008 9:20 PM CDT) Anatomical Region Laterality Modality Pelvis, Abdomen Other Specimen (Source) Anatomical Location Collection Method / Collectio n Time Received Time / Laterality Volume Impressions 12/02/2008 9:20 PM CDT : ??Findings consistent with appendicitis. [id number]/nir Dictating OSEAS TSAI RADIOLOGIST Narrative 12/02/2008 9:[address] abdomen and pelvis were performed with 100 mL intravenous Optiray and oral contrast. ??Liver, spleen, adre nals, kidneys, and pancreas appear normal. ??In the right lower quad rant, the appendix is dilated and mildly thick-walled, with surroundin g inflammatory change consistent with appendicitis. ??The uter us is absent. ??The pelvic structures are otherwise normal. Procedure Note Oseas Rivera - 08/15/2016Formattin g of this note might be different from the original. CT abdomen and pelvis were performed wit h 100 mL intravenous Optiray and oral contrast. Liver, spleen, adrena ls, kidneys, and pancreas appear normal. In the right lower quadra nt, the appendix is dilated and mildly thick-walled, with surroundin g inflammatory change consistent with appendicitis. The uterus is absent. The pelvic structures are otherwise normal. IMPRESSION : Findings consistent with appendicitis. [id number]/nir Dictating OSEAS TSAI RADIOLOGIST Trav Ahmadi MD RAD CT documented in this encounter Visit Diagnoses Not on filedocumented in this encounter Care Teams Lump Roller Relationship Specialty Start Date End Date Unassigned, Provider PCP - General 02/23/01 09/20/[address] [place] [address] documented as of this encounter
--- OUTSIDE RECORDS SUMMARY | 2022-05-14 08:47 | XMS_ITS | Encounter Summary ---
:1955 Author Organization [facility] Address [address] [place] [address] Care Team Providers Name Role Phone Eldon Conway MD Primary Care Provider Encounter Details Date Type Department Care Team Description 09/29/2002 Abstract [facility] [address] [place] [phone] Social History Tobacco Use Types [...] on filedocumented in this encounter Care Teams Flotation Tender Relationship Specialty Start Date End Date Eldon Conway MD PCP - General 07/24/01 02/15/[id number] [place] [address] documented as of this encounter
--- OUTSIDE RECORDS SUMMARY | 2022-05-14 08:47 | XMS_ITS | Encounter Summary ---
:1955 Author Organization [place] Address [address] [place] [address] Care Team Providers Name Role Phone Eldon Conway MD Primary Care Provider Reason for Visit Reason Comments URI Encounter Details Date Type Department Care Team Description 08/08/2003 Office Visit [facility] Eldon Conway, COUGH (Primary Dx) Cathy Wadsworth MD [address] [place] [address] [phone] Social History Tobacco Use Types Packs/Day Years Used Date Smoking Tobacco: Never Alcohol Use Standard Drinks/Week Comments No 0 (1 standard drink = 0.6 oz pure alcoho l) Sex Assigned at Date Recorded Not on file documented as of this encounter Last Filed Vital Signs Vital Sign Reading Time Taken Comments Blood Pressure 120/74 08/08/2003 3:30 PM PLANER TAILER Pulse - - Temperature 36.6 ??C (97.9 ??F) 08/08/2003 3:30 PM PLANER TAILER Respiratory Rate - - Oxygen Saturation - - Inhaled Oxygen Concentration - - Weight 60.8 kg (134 lb) 08/08/2003 3:30 PM PLANER TAILER Height - - Body Mass Index 23.93 06/30/2003 2:00 PM PLANER TAILER documented in this encounter Progress Notes 08/08/2003 3:30 PM PLANER TAILER SUBJECTIVE: Danielle Waldrop is a 48 year [...] and she's having surgery on 08-24-03. Radha Keyes RN. documented in this encounter Plan of Treatment Not on filedocumented as of this encounter Visit Diagnoses Diagnosis Cough - Primary documented in this encounter Care Teams Diagnostic Medical Sonographer Relationship Specialty Start Date End Date Eldon Conway MD PCP - General 07/24/01 02/15/18 [address] [place] [address] documented as of this encounter
--- OUTSIDE RECORDS SUMMARY | 2022-05-14 08:47 | XMS_ITS | Encounter Summary ---
:1955 Author Organization [facility] Address [address] [place] [address] Care Team Providers Name Role Phone Eldon Conway MD Primary Care Provider Reason for Visit Reason Comments Refill Request Encounter Details Date Type Department Care Team Description 11/08/2002 Refill [facility] Eldon Conway MD Refill Request [place] [address] [phone] Social History Tobacco Use Types Packs/Day Years [...] on filedocumented in this encounter Care Teams Bump Grader Operator Relationship Specialty Start Date End Date Eldon Conway MD PCP - General 07/24/01 02/15/18 [address] [place] [address] documented as of this encounter
--- OUTSIDE RECORDS SUMMARY | 2022-05-14 08:48 | XMS_ITS | Encounter Summary ---
:1955 Author Organization [facility] Address [address] [address] Care Team Providers Name Role Phone Unassigned, Provider Primary Care Provider Unavailable Encounter Details Date Type Department Care Team Description 09/12/2003 PN Conversion Only KNUCKLE BENDER [address] [place] [address] Social History Tobacco Use Types Packs/Day Years Used Date Smoking Tobacco: Never Assessed Sex Assigned at Date Recorded Not on file documented as of this encounter Plan of Treatment Not on filedocumented as of this encounter Visit Diagnoses Not on filedocumented in this encounter Care Teams Economic Development Coordinator Relationship Specialty Start Date End Date Unassigned, Provider PCP - General 02/23/01 09/20/18 [address] [place] [address] documented as of this encounter
--- OUTSIDE RECORDS SUMMARY | 2022-05-14 08:48 | XMS_ITS | Encounter Summary ---
:1955 Author Organization [facility] Address [address] [place] [address] Care Team Providers Name Role Phone Unassigned, Provider Primary Care Provider Unavailable Encounter Details Date Type Department Care Team Description 12/02/2008 PN Conversion Only [place] [address] [address] [place] [address] Social History Tobacco Use Types Packs/Day Years Used Date Smoking Tobacco: Never Assessed Sex Assigned at Date Recorded Not on file documented as of this encounter Plan of Treatment Not on filedocumented as of this encounter Visit Diagnoses Not on filedocumented in this encounter Care Teams Truck Crane Operator Relationship Specialty Start Date End Date Unassigned, Provider PCP - General 02/23/01 09/20/18 [address] [place] [address] documented as of this encounter
--- OUTSIDE RECORDS SUMMARY | 2022-05-14 08:48 | XMS_ITS | Encounter Summary ---
:1955 Author Organization [facility] Address [address] [place] [address] Care Team Providers Name Role Phone Unassigned, Provider Primary Care Provider Unavailable Encounter Details Date Type Department Care Team Description 10/19/2003 PN Conversion Only [facility] Neil Su, [address] [facility] RANJAN GONZÁLES [place], [place] [address] Social History Tobacco Use Types Packs/Day Years [...] 2212 Note Time: 10/19/03 0001 Status: Signed Computer Technologist: JACINTO Butler (Nurse Practitioner) NAME: DANIELLE ROBB MR: [id number] ACCT: [id number] VISIT: [id number] DICTATING CLINICIAN: NEIL SU NP JOB: [id number] CLINIC PROGRESS NOTE DATE OF VISIT: 10/19/2003 [...] has had it treated with cryotherapy previous. [id number] C: 10/20/03 12:26 DOCUMENT: [id number] documented in this encounter Plan of Treatment Not on filedocumented as of this encounter Visit Diagnoses Not on filedocumented in this encounter Care Teams Value Engineer Relationship Specialty Start Date End Date Unassigned, Provider PCP - General 02/23/01 09/20/[address] [place] [address] documented as of this encounter
--- OUTSIDE RECORDS SUMMARY | 2022-05-14 08:48 | XMS_ITS | Encounter Summary ---
:1955 Author Organization [facility] Address [address] [address] Care Team Providers Name Role Phone Unassigned, Provider Primary Care Provider Unavailable Encounter Details Date Type Department Care Team Description 03/29/2006 Office Visit [facility] [place] [address] [place] [address] [place], [place] [id number] Social History Tobacco Use Types Packs/Day Years [...] signed by Vargas Ambriz MD at 03/29/06 9346 Author: Vargas Ambriz MD Service: (none) Author Type: (none) Filed: 09/28/10 1458 Note Time: 03/29/06 0001 Status: Signed Franchise Consultant: Vargas Ambriz MD (Physician) SUBJECTIVE: 50-year-old female [...] filedocumented in this encounter Care Teams Hand Touch Up Painter Relationship Specialty Start Date End Date Unassigned, Provider PCP - General 02/23/01 09/20/[address] [place] [address] documented as of this encounter
--- OUTSIDE RECORDS SUMMARY | 2022-05-14 08:49 | XMS_ITS | Encounter Summary ---
:1955 Author Organization [facility] Address [address] [address] Care Team Providers Name Role Phone Unassigned, Provider Primary Care Provider Unavailable Encounter Details Date Type Department Care Team Description 01/31/1998 PN Conversion Only Jack Pillai Obstetric[place] [address] [facility] [address] [place] [address] [place], [place] [address] (Wo rk) Social History Tobacco Use Types [...] 0601 Note Time: 01/31/98 0001 Status: Signed Viticulture Teacher: Jack Malin MD (Physician) IMPRESSION: Recent diagnosis [...] herpes. Reassurance regarding vulvar varicosities. lap See Jeremy Baltazar Conv - 01/20/1998 12:01 AM CDT Progress [...] a prn basis for problems. stq RESOURCE: [facility] Aron Berger MD - 01/17/1998 12:01 AM CDT Progress Notes signed by Aron Barros MD at 01/31/98 1129 Author: Aron Barros MD Service: (none) Author Type: Physician Filed: 09/26/10 0549 Note Time: 01/17/98 0001 Status: Signed Viticulture Teacher: Aron Barros MD (Physician) IMPRESSION: Probable genital [...] Type: Physician Filed: 09/26/10 0516 Note Time: 12/12/972255 Status: Signed Viticulture Teacher: Aron Vanegas MD (Physician) IMPRESSION: No dictation required. SUBJECTIVE: N/A OBJECTIVE: N/A ASSESSMENT: N/A PLAN: N/A [facility] Aron Vanegas MD - 11/14/1997 12:01 AM CDT Progress Notes signed by Aron Vanegas MD at 04/17/022255 Author: Aron Vanegas MD Service: (none) Author Type: Physician Filed: 09/26/10 0452 Note Time: 11/14/972255 Status: Signed Viticulture Teacher: Aron Vanegas MD (Physician) IMPRESSION: No dictation required. SUBJECTIVE: N/A OBJECTIVE: N/A ASSESSMENT: N/A PLAN: N/A rem Aron Levi MD - 10/17/1997 12:01 AM CDT Progress Notes signed by Aron Vanegas MD at 04/17/022255 Author: Aron Vanegas MD Service: (none) Author Type: Physician Filed: 09/26/10425 Note Time: 10/17/972255 Status: Signed Viticulture Teacher: Aron Vanegas MD (Physician) IMPRESSION: No dictation required. SUBJECTIVE: N/A OBJECTIVE: N/A ASSESSMENT: N/A PLAN: N/A rem Aron Levi MD - 10/03/1997 12:01 AM CDT Progress Notes signed by Aron Vanegas MD at 04/17/022255 Author: Aron Vanegas MD Service: (none) Author Type: Physician Filed: 09/26/10 0413 Note Time: 10/03/97 0001 Status: Signed Viticulture Teacher: Aron Vanegas MD (Physician) IMPRESSION: No dictation required. SUBJECTIVE: N/A OBJECTIVE: N/A ASSESSMENT: N/A PLAN: N/A rem Aron Levi MD - 09/19/1997 12:01 AM CDT Progress Notes signed by Aron Vanegas MD at 04/17/022255 Author: Aron Vanegas MD Service: (none) Author Type: Physician Filed: 09/26/10 0400 Note Time: 09/19/97 0001 Status: Signed Viticulture Teacher: Aron Vanegas MD (Physician) IMPRESSION: No dictation required. SUBJECTIVE: N/A OBJECTIVE: N/A ASSESSMENT: N/A PLAN: N/A kjp Aron Levi MD - 09/12/1997 12:01 AM CDT Progress Notes signed by Aron Vanegas MD at 04/17/02 2256 Author: Aron Vanegas MD Service: (none) Author Type: Physician Filed: 09/26/10 0354 Note Time: 09/12/97 0001 Status: Signed Viticulture Teacher: Aron Vanegas MD (Physician) IMPRESSION: No dictation required. SUBJECTIVE: N/A OBJECTIVE: N/A ASSESSMENT: N/A PLAN: N/A rem Trav Larios - 08/31/1997 12:01 AM CST Progress Notes signed by Trav Proctor MD at 09/06/97 1312 Author: Trav Proctor MD Service: (none) Author Type: Physician Filed: 09/26/10 0345 Note Time: 08/31/97 0001 Status: Signed Viticulture Teacher: Trav Proctor MD (Physician) IMPRESSION: Preop exam. [...] 0342 Note Time: 08/29/97 0001 Status: Signed Viticulture Teacher: Aron Vanegas MD (Physician) IMPRESSION: Pelvic descensus. SUBJECTIVE: Danielle Pratt is a 42-year-old female who returns for further discussion regarding planning her vaginal hysterectomy and anterior and posterior repair. This is scheduled as an AM admit patient at [facility] for September 05. Dr. Cristina Davidson will assist me. OBJECTIVE: N/A ASSESSMENT: N/A PLAN: The plan will be to do this under general anesthesia in the lithotomy position, preserving both ovaries. Again, I have discussed in great detail with the patient the indications, nature, and relative risks of planned procedure. 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 OBJECTIVE: Examination reveals a healthy-appearing thin female [...] possible with Surgery. cc: Cristina Davidson MD [facility] UT INSPECTOR Trav Proctor - 08/17/1997 12:01 AM CST Progress Notes signed by Trav Proctor MD at 08/26/97 1114 Author: Trav Proctor MD Service: (none) Author Type: Physician Filed: 09/26/10 0332 Note Time: 08/17/97 0001 Status: Signed Viticulture Teacher: Trav Proctor MD (Physician) IMPRESSION: 1. Essentially [...] a fasting. Should get mammogram scheduled. johan UT INSPECTOR Conversion, [facility] - 08/01/1997 12:01 AM CST Progress Notes signed by at 03/27/98 2063 Author: [facility] Conversion Service: (none) Author Type: (none) Filed: 09/26/10 0317 Note Time: 08/01/97 0001 Status: Signed Viticulture Teacher: Jeremy Conversion IMPRESSION: Mild pelvic relaxation, asymptomatic. SUBJECTIVE: [...] outlined. sls SCHEDULED RESOURCE: CRISTINA DAVIDSON MD UT INSPECTOR Swati Loja MD - 07/18/1997 12:01 AM CST Progress Notes signed by GUERO Obrien at 08/17/97 1648 Author: GUERO Obrien Service: (none) Author Type: Physician Filed: 09/26/10 0303 Note Time: 07/18/97 0001 Status: Signed Viticulture Teacher: GUERO Obrien (Physician) IMPRESSION: Possible cystocele and [...] routine. She has lost 30 pounds since Thanksgiving by following the [employer] diet. She [...] an opinion regarding this. PLAN: N/A. kjp UT INSPECTOR documented in this encounter Plan of [...] Routine 01/17/1998 11:45 Results fo r this [facility] CDT procedure ar e in the results section. MM MAMMOGRAM Routine 10/20/1997 1:00 PM Results f or this SCREENING W CAD CDT procedure ar e in the results section. HEMOGLOBIN, BLOOD Routine 08/31/1997 1:19 PM Resu lts for this LAYOUT INSPECTOR procedure are i n the results section. GLUCOSE Routine 08/23/1997 7:40 AM Results f or this LAYOUT INSPECTOR procedure are i n the results section. THYROID STIMULATING Routine 08/23/1997 7:40 AM Re sults for this HORMONE LAYOUT INSPECTOR procedure are i n the results section. LIPID PANEL AND Routine 08/23/1997 7:40 AM Result s for this DIRECT LDL(IF NEEDED) LAYOUT INSPECTOR proced ure are in the results section. HEMOGLOBIN, BLOOD Routine 08/23/1997 7:40 AM Resu lts for this LAYOUT INSPECTOR procedure are i n the results section. ANATOMICAL PATH-C Routine 08/17/1997 2:02 PM Resu lts for this LAYOUT INSPECTOR procedure are i n the results section. URINALYSIS COMPLETE Routine 07/18/1997 8:45 AM Re sults for this LAYOUT INSPECTOR procedure are i n the results section. documented in this encounter Results (ABNORMAL) Herpes Simplex Rapid (01/17/1998 1:14 PM CDT) [facility] gist Method Time Signature Herpes simplex SEE TEXT HP CONVERSION Culture (A) Comment: Patient: DANIELLE PRATT Culture, Herpes simplex @ ? Collected: ??[id number] ??[id number] Source: ENDOCERV ?Processed: ??[id number] ??[id number] Final Report ------ ?[id number] ??[id number] Herpes simplex type 1 isolated Performed at [facility]. PRINTED TO [facility].01-19-98 AO @ = Herpes Culture Performed at ??[facility], [address], ?[facility] [address] Specimen (Source) Anatomical Collection Method Collection Time Re ceived Time Location / / Volume Laterality 01/17/1998 1:14 PM CDT Aron Barros MD LAB_1 Performing Organization Address City/State/ZIP Code Phon e Number HP CONVERSION Sexually Transmitted Disease Probe (01/17/1998 1:14 PM CDT) [facility] Method Time Signature Sexually SEE TEXT HP CONVERSION Transmitted Disease Probe Comment: Patient: DANIELLE PRATT Sexually Trans Disease Probe @ ?Collected: ??[id number] ??[id number] Source: ENDOCERV ?Processed: ??[id number] ??[id number] Final Report ------ ?[id number] ??[id number] Negative for Chlamydia trachomatis by DN A probe Negative for Neisseria gonorrhoeae by DN A probe @ = Sexually Trans Disease Probe Perform ed at ??[address] [facility] ?[place] [address] Specimen (Source) Anatomical Collection Method Collection Time Re ceived Time Location / / Volume Laterality 01/17/1998 1:14 PM CDT Aron Barros MD LAB_1 Performing Organization Address City/[facility] Code Phon e Number HP CONVERSION (ABNORMAL) Wet Prep [facility] (01/17/1998 11:45 AM CDT) [facility] Method Time [facility] Wet [facility] ? No normal HP CONVERSION [facility] Wet Prep Negative No normal HP CONVERSION Trich [facility] Wet Prep WBC Moderate No normal HP CONVERSION [facility] Wet Prep Moderate No normal HP CONVERSION Bacteria [facility] Wet Prep Clue Negative No normal HP CONVERSION Cells [facility] Wet Prep Positive (A) No normal HP CONVERSION Yeast [facility] Wet Prep Negative No normal HP CONVERSION Amine [facility] Specimen (Source) Anatomical Collection Method Collection Time Re ceived Time Location / / Volume Laterality 01/17/1998 11:45 AM CDT Aron Fior Barros LAB_1 Performing Organization Address [facility] Phon e Number HP CONVERSION MM Mammogram [...] RAD ARACELI Hemoglobin, Blood (08/31/1997 1:19 PM LAYOUT INSPECTOR) P athologist Signature Hemoglobin 12.9 11.8 - 15.5 HP CONVERSION gm/dL Specimen (Source) Anatomical Collection Method Collection Time Re ceived Time Location / / Volume Laterality 08/31/1997 1:19 PM LAYOUT INSPECTOR Trav Proctor LAB_1 Performing Organization Address [facility] Phon e Number HP CONVERSION Hemoglobin, Blood (08/23/1997 7:40 AM LAYOUT INSPECTOR) P athologist Signature Hemoglobin 13.2 11.8 - 15.5 HP CONVERSION gm/dL Specimen (Source) Anatomical Collection Method Collection Time Re ceived Time Location / / Volume Laterality 08/23/1997 7:40 AM LAYOUT INSPECTOR Trav Proctor LAB_1 Performing Organization Address City/State/ZIP Code Phon e Number HP CONVERSION (ABNORMAL) Lipid Panel and Direct LDL(If Needed) (08/23/1997 7:40 AM LAYOUT INSPECTOR) Patholo gist Method Time Signature Cholesterol 222 [...] / / Volume Laterality 08/23/1997 7:40 AM LAYOUT INSPECTOR Trav Proctor LAB_1 Performing Organization Address City/[facility]/ZIP Code Phon e Number HP CONVERSION Thyroid Stimulating Hormone (08/23/1997 7:40 AM LAYOUT INSPECTOR) athologist Signature Thyroid 1.32 0.20 - HP CONVERSION Stimulating 5.50 Hormone mIU/mL Specimen (Source) Anatomical Collection Method Collection Time Re ceived Time Location / / Volume Laterality 08/23/1997 7:40 AM LAYOUT INSPECTOR Trav Proctor LAB_1 Performing Organization Address City/[facility]/ZIP Code Phon e Number HP CONVERSION Glucose (08/23/1997 7:40 AM LAYOUT INSPECTOR) P athologist Signature Lab Glucose 90 60 - 110 HP CONVERSION mg/dL Specimen (Source) Anatomical Collection Method Collection Time Re ceived Time Location / / Volume Laterality 08/23/1997 7:40 AM LAYOUT INSPECTOR Trav Proctor LAB_1 Performing Organization Address City/State/ZIP Code Phon e Number HP CONVERSION Anatomical Path-C (08/17/1997 2:02 PM LAYOUT INSPECTOR) P athologist Signature PAP Smear SEE TEXT No normal HP CONVERSION range Comment: Patient: DANIELLE PRATT ? CERVICAL CYTOLOGY REPORT Pathology # ??[id number] ?Date Obtained: ? Date Received: LMP: ?07-28-96 CLINICAL HIST CERVICAL, VAGINAL SMEAR SPECIMEN ADEQUACY: ?? Satisfactory. ENDOCERVICAL CELLS: ??Present. CYTOLOGIC IMPRESSION: Within Normal Limits (Negative). Verified 08/22/97 by: ??SD ? (electronic signature) Specimen (Source) Anatomical Collection Method Collection Time Re ceived Time Location / / Volume Laterality 08/17/1997 2:02 PM LAYOUT INSPECTOR Trav Proctor LAB_1 Performing Organization Address City/State/[facility] Phon e Number HP CONVERSION (ABNORMAL) Urinalysis Complete (07/18/1997 8:45 AM LAYOUT INSPECTOR) [facility] gist Method Time Signature Glucose, Negative Neg-Trac HP CONVERSION Qualitative U Protein Urine Negative Neg-Trac HP CONVERSION Ketones Trace (A) Negative HP CONVERSION U BILI Negative Negative HP CONVERSION U Specific 1.020 1.005 - 25 HP CONVERSION [place] Blood Urine Negative Negative HP CONVERSION pH [...] / / Volume Laterality 07/18/1997 8:45 AM LAYOUT INSPECTOR Swati Loja MD LAB_1 Performing Organization Address [facility] Phon e Number HP CONVERSION documented in this encounter Visit Diagnoses Not on filedocumented in this encounter Care Teams Metal Neutralizer Relationship Specialty Start Date End Date Unassigned, Provider PCP - General 02/23/01 09/20/[address] [place] [address] documented as of this encounter
[2022-05-14 08:57] LABS: Basophils Absolute Auto 0.03 K/uL (0.00-0.30); Basophils Percent Auto 0.5 % (0.0-3.0); Eosinophils Absolute Auto 0.02 K/uL (0.00-0.50); Eosinophils Percent Auto 0.3 % (0.0-7.0); Hematocrit 45.6 % (33.0-51.0); Immature Granulocytes Abs Auto 0.01 K/uL (0.00-0.30); Immature Granulocytes Pct Auto 0.2 %; Lymphocytes Absolute Auto 1.67 K/uL (0.90-2.90); Lymphocytes Percent Auto 27.9 % (20-44); Mean Corpuscular HGB Conc 33 gm/dL (32-36); Mean Corpuscular Hemoglobin 31 pg (26-34); Mean Corpuscular Volume 94 fL (80-100); Monocytes Percent Auto 6.3 % (0.0-11.0); Neutrophils Absolute Auto 3.88 K/uL (1.7-7.0); Neutrophils Percent Auto 64.8 % (42.0-72.0); Platelet Count* 275 K/uL (140-440); Red Blood Count 4.85 m/uL (4.00-5.20); White Blood Count* 5.99 K/uL (4.50-11.00)
[2022-05-14 09:00] VITALS: BP 152/96; PULSE 80; RESP 18; O2SAT 98
[2022-05-14 09:15] LABS: Albumin* 4.8 g/dL (3.3-5.0); Chloride* 106 mmol/L (96-114); Potassium* 3.8 mmol/L (3.6-5.1); Sodium* 142 mmol/L (135-149)
[2022-05-14 09:17] LABS: Creatinine* 0.6 mg/dL (0.5-1.5); Est. Creatinine Clearance* 41.76; Estimated Glomerular Filt Rate 99 ml/min
[2022-05-14 09:18] LABS: Alanine Aminotransferase* 24 U/L (4-35); Alkaline Phosphatase* 73 U/L (40-150); Aspartate Amino Transferase* 27 U/L (12-35); Bilirubin Total* 0.7 mg/dL (0.1-1.5); Blood Urea Nitrogen* 10 mg/dL (7-30); Calcium* 9.2 mg/dL (8.4-10.6); Carbon Dioxide* 28 mmol/L (20-32); Glucose* 109 mg/dL (60-115); Total Protein* 7.9 g/dL (6.0-8.3)
[2022-05-14 09:27] LABS: NT Pro B Type NatriureticPept* 89 PG/mL (0-125)
[2022-05-14 09:30] VITALS: BP 149/96; BP 158/99; PULSE 74; PULSE 78; RESP 14; RESP 18; O2SAT 98
[2022-05-14 09:31] LABS: Slide Review Reflex No
[2022-05-14 09:44] LABS: D Dimer Quantitative* < 0.27 ug/ml (0.00-0.50)
[2022-05-14 10:00] VITALS: BP 155/92; PULSE 78; RESP 16; O2SAT 99
[2022-05-14 11:16] LABS: Appearance Urine Clear (Clear); Bilirubin Urine Negative (Negative); Blood Urine Trace-intact (Negative); Color Urine Yellow (Yellow); Glucose Urine Negative (Negative); Ketones Urine Trace (Negative); Leukocyte Esterase Urine 1+ (Negative); Nitrite Urine Negative (Negative); Protein Urine Negative (Negative); Specific Gravity Urine 1.015 (1.000-1.030); Urobilinogen Urine 0.2 (0.2-1.0)
[2022-05-14 11:42] LABS: Bacteria Urine Few; Squamous Epithelial Cell Urine Few (None-Few); WBC Urine 0-2 (0-5)
== END 2022-05-14 10:53 | disposition home or self-care (01) ==
PROVIDERS: Emergency Provider Family Medicine; PCP Internal Medicine
DX: I45.6 Pre-excitation syndrome (principal); I10 Essential (primary) hypertension
CPT/HCPCS: 36415; 71045; 80053; 81003; 81015; 83880; 84484; 85025; 85379; 87086; 93005; 99284

== ENCOUNTER 2022-05-17 22:48 | Emergency (ER) | payer BC, SELFPAY ==
[2022-05-17 23:02] VITALS: BP 140/83; PULSE 90; RESP 18; TEMP 36.8; O2SAT 99; BMI 23.1
[2022-05-17] MEDS: LORazepam 0.5 MG TABLET PO (23:37)
--- OUTSIDE RECORDS SUMMARY | 2022-05-18 00:01 | XMS_ITS | Clinical Summary ---
:1955 Author Organization [facility] [place] [address] Care Team Providers Name Role Phone Mariaelena [...] on filefrom Last 3 Months Care Teams Rebeamer Relationship Specialty Start Date End Date Mariaelena Boland MD PCP - General Internal Medicine 02/05/171999 [place] [address]
--- OUTSIDE RECORDS SUMMARY | 2022-05-18 00:02 | XMS_ITS | Encounter Summary ---
:1955 Author Organization [facility] Address [address] [place] [address] Care Team Providers Name Role Phone Eldon Conway MD Primary Care Provider Reason for Referral Referral not Required - Closed Specialty Diagnoses / Procedures Referred By Contact Refer red To Contact Diagnoses Urine, incontinence, stress female Michelle Goins MD [facility] [employer] [address] [place] [address] [place] [address] Fax: Phone: Fax: Referral ID Status Reason Start Date Expiration Date Visits Requ ested Visits Authorized [id number] Closed 08/02/2010 08/02/2010 1 1 MOTIVE OILER Reason for Visit Reason Comments Physical with pap; last pap 04/14/08 - nil; PT had partial hysterectomy after 1991 because of prolapsed uterus; PT IS FASTING. Encounter Details Date Type Department Care Team Description 08/02/2010 Office Visit [facility], Screening for osteoporosis; Clinic Cathy Martinez MD Routine gynecological examination; [address] [place] [address] Routine physical examination ; [place], [place] [facility] Urine, incontinence, stress female; [id number] [address] Hyperlipidemia LDL goal <[address] [place] [address] (Wo rk) Social History Tobacco Use Types Packs/Day Years Used Date Smoking Tobacco: Never Smokeless Tobacco: Never Alcohol Use Standard Drinks/Week Comments Yes 0 (1 standard drink = 0.6 oz pure alcoho l) socially/rare Sex Assigned at Date Recorded Not on file documented as of this encounter Last Filed Vital Signs Vital Sign Reading Time Taken Comments Blood Pressure 102/64 08/02/2010 9:38 AM LOCOMOTIVE OILER Pulse 76 08/02/2010 9:38 AM LOCOMOTIVE OILER Temperature 36.6 ??C (97.8 ??F) 08/02/2010 9:38 AM LOCOMOTIVE OILER Respiratory Rate 12 08/02/2010 9:38 AM LOCOMOTIVE OILER Oxygen Saturation 96% 08/02/2010 9:38 AM LOCOMOTIVE OILER Inhaled Oxygen Concentration - - Weight 61.7 kg (136 lb) 08/02/2010 9:38 AM LOCOMOTIVE OILER Height 156.8 cm (5' 1.75) 08/02/2010 9:38 AM LOCOMOTIVE OILER Body Mass Index 25.08 08/02/2010 9:38 AM LOCOMOTIVE OILER documented in this encounter Progress Maliha Baugh [...] uterus All Histories reviewed and updated in [facility]. ROS: C: NEGATIVE for fever, chills, change in weight I: NEGATIVE for worrisome rashes, moles or lesions E: NEGATIVE for vision changes or irritation ENT: NEGATIVE for ear, mouth and throat problems, positive for partial thyroidectomy for thyroid nodule in 03/2010 , sees whitewasher Dr Rosario, not on supplements. R: NEGATIVE [...] interested to exercise more now with diet. MOTIVE OILER documented in this encounter Nursing Notes 08/02/2010 [...] Name Type Priority Associated Diagnoses Order [facility] ADULT REFERRAL Referral Routine Urine, incontinenc e, Ordered: 08/02/2010 stress female documented as of this encounter Procedures Procedure Name Priority Date/Time Associated Diagnosis Comme nts PAP IMAGED THIN LAYER Routine 08/02/2010 10:11 Routine gynecol ogical Results for this SCREEN AM LOCOMOTIVE OILER examination procedure are in Routine physical the results examination section. VITAMIN D DEFICIENCY Routine 08/02/2010 10:11 Routine physical Results for this SCREENING AM LOCOMOTIVE OILER examination procedure are i n the results section. TSH WITH FREE T4 Routine 08/02/2010 10:11 Routine physical Res ults for this REFLEX AM LOCOMOTIVE OILER examination procedure are i n the results section. LIPID REFLEX TO Routine 08/02/2010 10:11 Routine physical Resu lts for this DIRECT LDL PANEL AM LOCOMOTIVE OILER examination procedure are in Hyperlipidemia LDL the resul ts goal <160 section. COMPREHENSIVE Routine 08/02/2010 10:11 Routine physical Result s for this METABOLIC PANEL AM LOCOMOTIVE OILER examination procedure ar e in the results section. CBC WITH PLATELETS Routine 08/02/2010 10:11 Routine physical R esults for this AM LOCOMOTIVE OILER examination procedure are i n the results section. documented in this encounter Results Vitamin D deficiency screening (08/02/2010 10:11 AM LOCOMOTIVE OILER) Component Value Ref Test Analysis Performed At [facility] gist Range Method Time Signature 25 [place] Vit D2 <5 ug/L [facility] 25 [place] Vit D3 45 ug/L [facility] 25 OH Vit D <50 30 - 75 [facility] total Season, race, dietary intake, and treatm ent affect the concentration of ug/L [facility] 31-tzwobuw-Kxbdvcw D. Values may decrease during brandy er months and increase [facility]AMP[facility] during summer months. Values less than 30 ug/L may indicate Vitamin D deficiency. Specimen Anatomical Collection Method Collection Time Receive d Time (Source) Location / / Volume Laterality Blood specimen 08/02/2010 10:11 1 (specimen) AM LOCOMOTIVE OILER 10:12 AM LOCOMOTIVE OILER Michelle Goins MD LAB - BLOOD ORDERABLES Performing Organization Address City/State/ZIP Code Phon e Number [address] [address] [facility] PAP imaged thin layer screen (08/02/2010 10:11 AM LOCOMOTIVE OILER) Component Value Ref Test Analysis Performed At [facility] gist Range Method Time Signature PAP NIL COPATH Copath Report COPATH Patient Name: DANIELLE WALDROP MR#: [id number] Specimen #: [id number] Collected: 08/02/2010 Received: 08/03/2010 Reported: 08/06/2010 14:37 [...] CHEKO Hernandez (ASCP) Processed and screened at [facility] CLINICAL HISTORY: Partial Hysterectomy, Previous normal pap Date of Last Pap: 04/14/08, Papanicolaou Test Limitations: ??Cervical cytology is a scre ening test with limited sensitivity; regular screening is critical for cancer prevention; Pap tests are primarily effective for the diagnosis/prevention of squamous cell carcinoma, not adenoca rcinomas or other cancers. TESTING LAB LOCATION: [address] ??[id number] COLLECTION SITE: Client: ??[facility] Location: [facility] (R) Specimen (Source) Anatomical Collection Method Collection Time Re ceived Time Location / / Volume Laterality Cytologic 08/02/2010 10:11 08/03/2010 material AM LOCOMOTIVE OILER 10:53 AM LOCOMOTIVE OILER (specimen) Michelle Goins MD LAB - OPTIME CLINICAL SPECIM EN Performing Organization Address City/[facility]/ZIP Code Phon e Number COPATH CBC with platelets (08/02/2010 10:11 AM LOCOMOTIVE OILER) P athologist Signature WBC 6.5 4.0 - 11.0 [place] 10e9/L [facility] RBC Count 4.47 3.8 - 5.2 [place] 10e12/L [facility] Hemoglobin 14.0 11.7 - [place] 15.7 g/dL [facility] Hematocrit 42.0 35.0 - [place] 47.0 % [facility] MCV 94 78 - 100 [place] [address] [facility] MCH 31.3 26.5 - [place] 33.[address] [facility] MCHC 33.3 31.5 - [place] 36.5 g/dL [facility] RDW 12.6 10.0 - [place] 15.0 % [facility] Platelet Count 257 150 - 450 [place] 10e9/L [facility] Specimen Anatomical Collection Method Collection Time Receive d Time (Source) Location / / Volume Laterality Blood specimen 08/02/2010 10:11 1 (specimen) AM LOCOMOTIVE OILER 10:12 AM LOCOMOTIVE OILER Michelle Goins MD LAB - BLOOD ORDERABLES Performing Organization Address [facility]/ZIP Code Phon e Number [facility] [address] [place], [place] [id number] [facility] TSH with free T4 reflex (08/02/2010 10:11 AM LOCOMOTIVE OILER) P athologist Signature TSH 1.81 0.4 - 5.0 [place] mU/L [facility] Specimen Anatomical Collection Method Collection Time Receive d Time (Source) Location / / Volume Laterality Blood specimen 08/02/2010 10:11 1 (specimen) AM LOCOMOTIVE OILER 10:12 AM LOCOMOTIVE OILER Michelle Goins MD LAB - BLOOD ORDERABLES Performing Organization Address City/[facility]/ZIP Code Phon e Number [facility] [address] [place] [address] [facility] Comprehensive metabolic panel (08/02/2010 10:11 AM LOCOMOTIVE OILER) P athologist Signature Sodium 144 133 - 144 [place] mmol/L [facility] Potassium 4.6 3.4 - 5.3 [place] mmol/L [facility] Chloride 105 94 - 109 [place] mmol/L [facility] Carbon Dioxide 29 20 - 32 [place] mmol/L [facility] Anion Gap 10 6 - 17 [place] mmol/L [facility] Glucose 93 60 - 99 [place] mg/dL [facility] LAB Urea Nitrogen 24 7 - 30 [place] mg/dL [facility] LAB Creatinine 0.77 0.52 - [place] 1.04 mg/dL CLINIC LAB Comment: New IDMS-traceable calibration beginning 10/08/07 GFR Estimate 78 >60 mL/min/1.7m2 [place] [facility] GFR Estimate If Black >90 >60 mL/min/1.7m2 [facility] [place] [facility] Calcium 9.6 8.5 - 10.4 mg/dL [place] [facility] Bilirubin Total 0.6 0.2 - 1.3 mg/dL [facility] Albumin 4.6 3.3 - 4.9 g/dL [place] [facility] Comment: Reference range changed on 02/08. Protein Total 7.7 6.8 - 8.8 g/dL [facility] Comment: As of 07, reference range reflects plasma specimen type. Alkaline Phosphatase 71 40 - 150 U/L [facility] [place] ALT 20 0 - 50 U/L [place] [facility] LAB AST 27 0 - 45 U/L [place] [facility] LAB Specimen Anatomical Collection Method Collection Time Receive d Time (Source) Location / / Volume Laterality Blood specimen 08/02/2010 10:11 1 (specimen) AM LOCOMOTIVE OILER 10:12 AM LOCOMOTIVE OILER Michelle Goins MD LAB - BLOOD ORDERABLES Performing Organization Address City/State/ZIP Code Phon e Number [facility] [address] [place] [address] [facility] (ABNORMAL) Lipid panel reflex to direct LDL (08/02/2010 10:11 AM LOCOMOTIVE OILER) athologist Signature Cholesterol 287 (H) 0 - 200 [facility] mg/dL CLINIC LAB Comment: LDL Cholesterol is the primary guide to therapy. The NCEP recommends further evaluation of: patients with cholesterol <200 mg/dL if additional risk factors are present, cholesterol >240 mg/dL, triglycerides >150 mg/dL, or HDL <40 mg/dL. Triglycerides 104 0 - 150 mg/dL [facility] HDL Cholesterol 66 50 - 110 mg/dL [facility] LDL Cholesterol Calculated 200 (H) 0 - 129 mg/dL [facility] Comment: LDL Cholesterol is the primary guide to therapy: LDL-cholesterol goal in high risk patients is <100 mg/dL and in very high risk patients is <70 mg/dL. VLDL-Cholesterol 21 0 - 30 mg/dL [facility] Cholesterol/HDL Ratio 4.4 0.0 - 5.0 [facility] Specimen Anatomical Collection Method Collection Time Receive d Time (Source) Location / / Volume Laterality Blood specimen 08/02/2010 10:11 1 (specimen) AM LOCOMOTIVE OILER 10:12 AM LOCOMOTIVE OILER Michelle Goins MD LAB - BLOOD ORDERABLES Performing Organization Address City/State/ZIP Code Phon e Number [facility] [address] [place] [address] [facility] documented in this encounter Visit Diagnoses Diagnosis Screening for osteoporosis Special screening for osteoporosis Routine gynecological examination Routine physical examination Routine general medical examination at a health care facility Urine, incontinence, stress female Female stress incontinence Hyperlipidemia LDL goal <160 Other and unspecified hyperlipidemia documented in this encounter Care Teams Product Line Manager Relationship Specialty Start Date End Date Eldon Conway MD PCP - General 07/24/01 02/15/18 [address] [place] [address] documented as of this encounter
--- OUTSIDE RECORDS SUMMARY | 2022-05-18 00:02 | XMS_ITS | Encounter Summary ---
:1955 Author Organization [facility] Address [address] [place] [address] Care Team Providers Name Role Phone Mariaelena [...] with No / Unsure 06/05/2020 6:33 AM BAD CLOTH CHECKER someone who was confirmed or suspected to have Coronavirus / COVID-19? documented as of this encounter Plan of Treatment Not on filedocumented as of this encounter Visit Diagnoses Not on filedocumented in this encounter Care Teams Cnc Machine Programmer Relationship Specialty Start Date End Date Mariaelena Boland PCP - General Internal Medicine 02/16/18 [facility] [address] [place] [address] documented as of this encounter
--- OUTSIDE RECORDS SUMMARY | 2022-05-18 00:02 | XMS_ITS | Encounter Summary ---
:1955 Author Organization [facility] Address [address] [place] [address] Care Team Providers Name Role Phone Mariaelena [...] on filedocumented in this encounter Care Teams Planner Intern Relationship Specialty Start Date End Date Mariaelena Boland PCP - General Internal Medicine 02/16/18 [facility] [address] [place] [address] documented as of this encounter
--- OUTSIDE RECORDS SUMMARY | 2022-05-18 00:02 | XMS_ITS | Continuity of Care Document ---
:1955 Author Organization [facility] Address [address] [address] [place] [address] Phone Care Team Providers Name Role Phone Matt Chavarria MD Unavailable Unavailable Allergies, Adverse Reactions, Alerts Substance Reaction Status Criticality No Known Allergies Active No Informatio n No Known Drug Allergies Active No Infor mation Medications Medication Instructions Dosage Effective Dates Status Comment s (start - stop) RepHresh vaginal - Active gel PROBIOTIC (unknown take 1 by Oral route Not Available - A ctive strength) every day simvastatin 10 mg take 1 tablet by 10 MG - Active tablet oral route every day in the evening Vitamin D3 25 mcg take 1 by Oral route 1 - Activ e (1,000 unit) every day capsule aspirin 81 mg take 1 tablet by 81 MG - Active tablet,delayed oral route every day release Divigel 0.25 apply 1 packet by - Active mg/0.25 gram (0.1 topical route every %) transdermal gel day to upper thigh packet Procedures Procedure Date Established Level 3 Offic/outpt E&m Estab Low-mod Established Level 3 Established Level 3 Ugi Endo; W/insrt Guide Wire Ugi Endo; W/bx 1/mx Level Iv-surg Path Gross/micro New Level 4 or 45-59 min Colonoscopy Flex; Dx (feb Advance Directives Directive Yes / No Effective Date File Name No Information Encounters Encounter Practice Location Reason(s) Diagnoses Date Provider Provide rs Description For Visit Copied on Encounter Established [facility] [place] GI Bloating Deon GRAYSON Referri josselin Level 3 [facility] Symptoms symptom Matt. 3001 Provider : Health PA, or 2 Juancarlos Referral [address] [place], [place]. [address], (chief [address], [place] complaint) [place], , [place], [place], [id number], [id number], [place]. tel: tel:[phone] [facility] No [facility] Information MD Bejarano. Health PA, 2 [address] [address], [address], [place] [address], , [place], [place], [id number], [place] [id number], tel: [place]. [phone] tel:[phone] Offic/outpt [facility] [place] GI Bloating Deon GRAYSON Referri josselin E&m [facility] Symptoms symptom Matt. 3001 Provid er: Low-mod Health PA, or 2 Juancarlos Referral [address] [place], [place]. [address], (chief [address], [place] complaint) [place], , [place], [id number], [id number], [place]. tel: tel:[phone] [facility] No Deon GRAYSON Referring Digestive Clinic Information Matt. 3001 Provi lorrie: Health PA, [address] [place]. [address], [address], [place], , [place], [id number], [id number], [place]. tel: tel:[phone] Established [facility] Comment Bloating Deon GRAYSON Referri josselin Level 3 [facility] (chief symptom Matt. 3001 Provider: Health PA, complaint) [address] Ju[address] [place] [address] [place]. [address], [address], [place], , [place], [place], [id number], [id number], [place]. tel: tel:[phone] Established [facility] GI Globus 2 Deon gill Level 3 Digestive Clinic Symptoms sensationBloa [facility]. 3001 Pr ovider: Health PA, or ting 1 [place] Referral [address] [place]. [address], (chief discomfort [address], [place] complaint) [place], , [place], [id number], [id number], [place]. tel: tel:[phone] [facility]ophageal Bharat GRAYSON Referri ng Digestive [facility] dysphagiaCerv [facility]. 3001 Prov ider: Health PA, Endoscopy icalgiaDyspha 1 [place] Refe rral [address] [place], [address] [place], [place]. [address], unspecifiedCe [address], [place] rvicalgia [place], , [place], [place], [id number], [id number], [place]. tel: tel:[phone] New Level 4 [facility] [place] Comment Neck May- Deon gill or 45-59 min Digestive Clinic (chief painChange in [facility]. 300 1 Provider: Health PA, complaint) bowel [address] [place] Darrius [address], [place] [address], [address], [place], [facility] [facility] [address], [place], [place], [id number], [id number], [place], [place], [address]. tel: tel:+ tel:[phone] [facility] [place] No May- Deon GRAYSON [facility] Information [facility]. 3001 Health PA, [address] [place] [address] [place], [address], [address], [place], , [place], [id number], [id number], [place]. tel: [phone] [facility] [place] No May-0 Shavonne GRAYSON Dig[facility] [place] Information Sumit. [facility], [facility] 0 [address] [address], [address], [place] [address], [place], [place], [place], [id number], [place], [place] [id number], tel:+ [place]. [phone] tel:[phone] [facility] Mayra [facility] No Michelle gill Digestive Endoscopy screening 1-200 Information Provid er: [facility], Center [address] [place] [address], [place], [address], [place], [place], [facility] [id number], [facility], [address]. tel:+ tel:[phone] Family History Family Member Type Diagnosis Age At Onset Daughter Problem (finding) Alive and well Son Problem (finding) Crohn's disease Mother Problem (finding) alzheimer's disease Father Problem (finding) hypertension Father Problem (finding) High cholesterol Father Problem (finding) coronary arteriosclerosis Immunizations Vaccine Date Status Comments influenza, high-dose seasonal, administered N ote: [facility] bi-directional quadrivalent, .7mL dose, interfa ce ; Source: Other preservative free Registry SARS-COV-2 (COVID-19) vaccine, administered N ote: [facility] bi-directional mRNA, spike protein, LNP, interf tru ; Source: Other bivalent booster, preservative R egistry free, 30 mcg/0.3 mL dose, dillan-sucrose formulation Pneumovax 23 administered Note: [facility] bi-di rectional interface ; Sour ce: Other Registry influenza, high-dose seasonal, administered N ote: [facility] bi-directional quadrivalent, .7mL dose, interfa ce ; Source: Other preservative free Registry Prevnar 13 administered Note: [facility] bi-di rectional interface ; Sour ce: Other Registry SARS-COV-2 (COVID-19) vaccine, administered N ote: [facility] bi-directional mRNA, spike protein, LNP, interf tru ; Source: Other preservative free, 30 mcg/0.3mL Registry dose SARS-COV-2 (COVID-19) vaccine, administered N ote: [facility] bi-directional mRNA, spike protein, LNP, interf tru ; Source: Other preservative free, 30 mcg/0.3mL Registry dose Afluria Qd administered Note: [facility] bi-directional interface ; Sour ce: Other Registry Afluria Qd administered Note: [facility] bi-directional interface ; Sour ce: Other Registry zoster vaccine recombinant administered Note: [facility] bi-directional interface ; Sour ce: Other Registry zoster vaccine recombinant administered Note: [facility] bi-directional interface ; Sour ce: Other Registry Seasonal, quadrivalent, administered Note: [facility] IC bi-directional recombinant, injectable interfac e ; Source: Other influenza vaccine, preservative Registry free Afluria Qd administered Note: [facility] bi-directional interface ; Sour ce: Other Registry Afluria Qd administered Note: [facility] bi-directional interface ; Sour ce: Other Registry Influenza, injectable, Madin administered Not e: [facility] bi-directional [place] Canine Kidney, interface ; Source: Other preservative free, quadrivalent Registry Afluria Qd administered Note: [facility] bi-directional interface ; Sour ce: Other Registry Afluria Qd administered Note: [facility] bi-directional interface ; Sour ce: Other Registry zoster vaccine, live administered Note: [facility] bi-directional interface ; Sour ce: Other Registry diphtheria and tetanus toxoids, administered Note: [facility] bi-directional adsorbed for pediatric use inter face ; Source: Other Registry Payers Payer name Insurance type Covered alliance party ID Authorization(s ) [facility] [id number] Social History Type Description Quantity Date Captured Comments Alcohol Use Details Unknown Caffeine Use Details Unknown Tobacco Use Status No Information Smoking Status undefined Sex Female Vital Signs Date / Height Weight BMI Pulse Blood Temperature Respiratory Body Head Head Circ. Wt./Kale. BMI Pulse Inhaled Time: Rate Pressure Rate Surface Circumference Percenti le Percentile percentile Ox Ox Area Nov-03 61.00 55.338 23.0 -2021 in kg 5 8:50 (122.00 kg/m AM lbs) triston (2) Chief Complaint And Reason For Visit From encounter dated '04/11/2022 08:50'. GI Symptoms or Concerns (chief complaint). Description: Danielle Waldrop is seen today in followup.By history, the patient is a 66-year-old woman that we had the opportunity to see in the past with symptoms mainly of gas and bloating. She had been taken off Metamucil and placed on a low FODMAP diet. When seen last, she had been 60 to 70% better.When seen today, she still has the symptoms, but she is now semi-retired, exercising and overall doing well. She still has the gas and bloating. In addition, she has some discomfort that she describes on the left side of her abdomen, which is a little more prominent, which she attributes to her hiatal hernia, although she does not have dysphagia or symptomatic heartburn.Her medication list is unchanged at this point.It is noted the patient has had a colonoscopy within the last 3 years. This was done locally in the [facility]. She otherwise feels well. Reason For Referral Reason For Referral No Information Plan Of Treatment Date Type Action Status Referral Ordered: ordered EGD Appointment date/timeframe: 07/07/2020 History Of Present Illness Encounter Date Complaint History Of Present I llness GI Symptoms or Concerns Danielle Waldrop i s seen today in followup.By history, the patient is a 66-year-old woman that we had the oppo rtunity to see in the past with symptoms mainly of gas and bloating. She had been taken off M etamucil and placed on a low FODMAP diet. Whe n seen last, she had been 60 to 70% better.Whe n seen today, she still has the symptoms, bu t she is now semi-retired, exercising and overa ll doing well. She still has the gas and bloa ting. In addition, she has some discomfort that she describes on the left side of her abdomen, which is a little more prominent, which she attributes to her hiatal hernia, although she does not have dysphagia or symptomatic heart burn.Her medication list is unchanged at this point.It is noted the patient has had a co lonoscopy within the last 3 years. This was do ne locally in the [place] area. She otherwise feels well. GI Symptoms or Concerns Danielle is seen today in followup.By history, the patient is a 66- year-old woman that had been seen in September last year. At that time, she had been having symptoms of gas and bloating as well as abdominal discomfort.At that point, after be ing seen, we suggested a FODMAP diet, SAP SECURITY CONSULTANT gianfranco luation and stopping medications.At the p resent time, the patient has stopped her [place] mucil and actually feels that she is doing mu ch better. She has been following the FODMAP diet variably. Overall, however, she feels t hat she is 60 to 70% better. She still garcia s some gas that is bothersome for her, but otherwise feels well.Her history is reviewed. Medically, she has been treated for arthritis, hypertension, and hyperlipidemia. She is not a smoker or a drinker. She is now retired, having worked at a [employer]. Her family history was noted to be unremarkable.On exam now, she appears in no acute distress with stable vital signs. She does not have jaundice or pa Comment Danielle is called to day for a followup visit.Before beginni ng she verified she was in a safe place. She wa s alone in her car (not driving) and gave co nsent for this to be done over the phone. By lissette hammond she is a 65-year-old woman st atus post partial hysterectomy with hy perlipidemia, who we are seeing because her g as and bloating symptoms are similar to that in the past. She describes the gas and bloating in the upper abdomen as well as to the left of the umbilicus. It occurs on a daily ba sis. Usually bowel movement seems to he lp, the bowel movements themselves have been variable.With these symptoms, she had se en Dr. Nicholson for upper endoscopy within the last few years. [facility] was [facility]. [facility] in [facility] in [facility] that she relates was negative . Her symptoms however continue the bloatin g, can occur during the day or at night. She is unable to relate it to any particular food. She has been on FODMAP diet. While this may have helpe GI Symptoms or Concerns Danielle is seen today in followup. Before beginning her visit she verified, she was in a safe place alone and able to talk. She gave consent.By history, the patient is a 65-year-old woman th at had previously been seen in May. At that time, she had had symptoms of neck dis comfort and was felt to be globus. She had been evaluated by ENT and these records have immanuel giles reviewed. She has had a CAT scan, ENT exam ination all of which have failed to reveal abn ormality other than a mild sinus infection.Subs equent to her visit, she underwent endoscopy by Dr. Nicholson. The endoscopy itself montez eared normal other than a small hiatal hernia. A 51-Sinhala dilation was performed. Biopsies were done as well. Biopsies have been r eviewed and they showed no evidence of eosinoph ilic esophagitis or reflux disease. The patient is seen today in followup.There has immanuel giles no other change in her allergies, meds, med ical history since being seen last.The [facility] review of systems does renuka Comment Danielle is called to day for a televisit. Initially, patient h ad been scheduled for a virtual visit; [facility], she describes herself is not being technic ally savvy and subsequently, this w as switched to a telephone call. Prior to begin [facility], she gave consent for this to be done over the phone. She verified she was in a safe pl tru alone and able to talk.By history, the patient is a 65-year-old woman whose main com plaint is that of a lump in her neck. She fee ls the discomfort on the left side of her nec k at the base of her throat. It seems to ache when she eats. In addition, she has a sense that food is hesitating through t his area. These symptoms have been present fo r over 2 years.With this, she most recently be en seen by ENT. No abnormality had been detected on palpation or examination. I note that a barium study performed in 2017 fo r similar symptoms showed mild esophageal dysm otility, but it was otherwise normal. No mention of a Zenker's or diverticulum was see [place] Functional Status Date Functional Assessment No Information Instructions Date Instruction Additional Informati on Hiatal Hernia Related to Esophagea l dysphagia Assessments Type Assessment Date assessment Bloating symptom impression IMPRESSIONThifrancis is a patient with intermi ttent gas and bloating. This all appears to be a funct ional discomfort. She is doing better on a FODMAP diet suggest ing that there is an element of carbohydrate intolerance asso ciated with this.While we discussed potentially doing a workup for bacterial overgrowth, if found this would involve taking antibiotics, and at the present time she is not inter ested.If the patient is otherwise without change in the sympt oms and otherwise doing well, no further investigation wou ld be in order at this point.Although the patient does have a s mall hiatal hernia, her symptoms really correlate more with the gas and bloating and I would not recommend any other inte rvention in this area.To this end, I will ask Danielle to follow up through her primary provider Dr. Boland, but should her symptoms change, I will be happy to see her back at any arnie e.We appreciate assisting in Danielle's care. Patient Care Teams Name Effective Dates (start - stop) Status M jovani No Information
--- OUTSIDE RECORDS SUMMARY | 2022-05-18 00:02 | XMS_ITS | Encounter Summary ---
:1955 Author Organization [facility] Address [address] [place] [address] Care Team Providers Name Role Phone Eldon [...] RESULTS Atrial Rate 68 BPM RADIOLOGY RESULTS PA Interval 92 ms RADIOLOGY RESULTS QRS Duration 84 ms RADIOLOGY RESULTS QT 414 ms RADIOLOGY RESULTS QTc 440 ms RADIOLOGY RESULTS P [place] 19 degrees RADIOLOGY RESULTS R AXIS 0 degrees RADIOLOGY RESULTS T [place] 32 degrees RADIOLOGY RESULTS Interpretation Sinus rhythm with short PA RADIOLOGY ECG Cannot rule out Anterior infarct [...] on filedocumented in this encounter Care Teams Lumber Grader Relationship Specialty Start Date End Date Eldon Conway MD PCP - General 07/24/01 02/15/18 [address] [place] [address] documented as of this encounter
--- OUTSIDE RECORDS SUMMARY | 2022-05-18 00:02 | XMS_ITS | Encounter Summary ---
:1955 Author Organization [facility] Address [address] [place] [address] Care Team Providers Name Role Phone Eldon Conway MD Primary Care Provider Reason for Visit Reason Comments Edema bilateral hand swelling and finger joint pain x 1 month, burning sensation in right palm, trigger finger right hand, 4th digit with shooting pain, and dropping things x 3 months Encounter Details Date Type Department Care Team Description 09/04/2010 Office Visit [facility] Gottipolu, Stiffness of joint, hand; Clinic [place] MD Michelle Trigger finger [address] [place], [place] [phone] [phone] [place] [address] (Wo rk) Social History Tobacco Use Types [...] area of rt hand palm. 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 Normal strength. SKIN: Normal exam NEURO: Normal exam With Miller filament. Normal strength ASSESSMENT/PLAN : 719.54F Stiffness [...] Time Signature DALTON Screen by <1.0 <1.0 [facility] EIA Interpretation: ??Negative [facility] Specimen Anatomical Collection Method Collection Time Receive d Time (Source) Location / / Volume Laterality Blood specimen 09/04/2010 2:24 PM 011 2:29 (specimen) CDT PM CDT Michelle Goins MD LAB - BLOOD ORDERABLES Performing Organization Address City/[facility]/ZIP Code Phon e Number [facility] [address] LABS Rheumatoid factor (09/04/2010 2:24 PM CDT) athologist Signature Rheumatoid 10 0 - 14 [facility] Factor IU/mL CAMPUS LABS Specimen Anatomical Collection Method Collection Time Receive d Time (Source) Location / / Volume Laterality Blood specimen 09/04/2010 2:24 PM 011 2:29 (specimen) CDT PM CDT Michelle Goins MD LAB - BLOOD ORDERABLES Performing Organization Address City/State/ZIP Code Phon e Number [facility] [address] LABS Erythrocyte sedimentation rate auto (09/04/2010 2:24 PM CDT) athologist Signature Sed Rate 10 0 - 30 mm/h [facility] LAB Specimen Anatomical Collection Method Collection Time Receive d Time (Source) Location / / Volume Laterality Blood specimen 09/04/2010 2:24 PM 011 2:29 (specimen) CDT PM CDT Michelle Goins MD LAB - BLOOD ORDERABLES Performing Organization Address City/[facility]/ZIP Code Phon e Number [address] [address] [facility] LAB documented in this encounter Visit Diagnoses Diagnosis Stiffness of joint, hand Stiffness of joint, not elsewhere classi fied, hand Trigger finger Trigger finger (acquired) documented in this encounter Care Teams Senior Brand Manager Relationship Specialty Start Date End Date Eldon Conway MD PCP - General 2/15/02 9/9/18 [address] [place] [address] documented as of this encounter
--- OUTSIDE RECORDS SUMMARY | 2022-05-18 00:02 | XMS_ITS | Encounter Summary ---
:1955 Author Organization [facility] Address [address] [place] [address]. [place] [address] Care Team Providers Name Role Phone Mariaelena Boland Primary Care Provider Reason for Visit Diagnostic Imaging Mammo - Closed Specialty Diagnoses / Procedures Referred By Contact Refer red To Contact Radiology. Diagnoses Visit for screening mammogram [facility] Procedures MA Screening Digital Bilateral [facility] [address], [address] [facility] [address] [place] [address] [place] [address] Phone: Fax: Referral ID Status Reason Start Date Expiration Date Visits Requ ested Visits Authorized [id number] Closed 02/16/2018 02/16/2019 1 1 Encounter Details Date Type Department Care Team Description 02/20/2018 Hospital Encounter [facility] AdrianneFiona (Patient) [facility] Mariaelena [address], [place] [address] [place], [place] [address] [facility] [address] [place], [place] [phone] [address] Social History Tobacco Use Types Packs/Day [...] 12 08/02/2010 (MULTIVITAMIN) per tablet mouth daily. [place]-3 Fatty Acids 1200 Take 1 capsule by 180 capsule 12 MG capsule mouth daily. [id number] [place] 0 07/10/2010 Calcium Plus D - 600mg/500IU. ONE Softgel cap daily. pravastatin (PRAVACHOL) 20 Take 1 tablet by 30 tablet 3 MG tabletIndications: mouth daily. Hyperlipidemia LDL goal <160 documented as of this encounter Plan of Treatment Not on filedocumented as of this encounter Visit Diagnoses Not on filedocumented in this encounter Care Teams Wood Machine Carver Relationship Specialty Start Date End Date Mariaelena Boland PCP - General Internal Medicine 02/16/18 [facility] [address] [place] [address] documented as of this encounter
--- OUTSIDE RECORDS SUMMARY | 2022-05-18 00:02 | XMS_ITS | Encounter Summary ---
:1955 Author Organization [facility] Address [address] [place] [address] Care Team Providers Name Role Phone Eldon Conway MD Primary Care Provider Reason for Visit Reason Onset Date Comments Muscle Pain 08/15/2010 [facility] hand pain Encounter Details Date Type Department Care Team Description 08/15/2010 Telephone [facility] Juancarlos Goins n ([facility] Clinic Eldred MD Michelle hand pain) [address] [place], [place] [phone] [phone] [address] [place] [address] (Wo rk) Social History Tobacco Use Types [...] on voicemail with below juan Benites RN [facility] Telephone Encounter - Michelle Goins - 08/15/2010 10:47 AM CST Please inform pt : simvastatin usually causes muscle aches, not joint pains. Pt can take OTC Co-Enzyme Q 20 -30 mg , which helps with muscle aches . If symptoms still persist in 2-3 weeks, will check labs CK, Myoglobin labs Betina Goins M.D [facility] Telephone Encounter - Rhea Benites - 08/15/2010 9:45 AM CST Pt calls: [phone] (home) Has noticed increased right hand joint [...] Nurse Triage with [facility]. Melinda Benites RN [facility] documented in this encounter Plan of Treatment Not on filedocumented as of this encounter Visit Diagnoses Not on filedocumented in this encounter Care Teams Bottom Precipitator Operator Relationship Specialty Start Date End Date Eldon Conway MD PCP - General 07/24/01 02/15/18 [address] [place] [address] documented as of this encounter
--- OUTSIDE RECORDS SUMMARY | 2022-05-18 00:02 | XMS_ITS | Encounter Summary ---
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 S/P partial thyroidectomy; [address] [facility]andr [facility] [address] [facility], [phone] [place] [address] (Wo rk) Social History Tobacco Use Types Packs/Day Years Used Date Smoking Tobacco: Never Alcohol Use Standard Drinks/Week Comments No 0 (1 standard drink = 0.6 oz pure alcoho l) Sex Assigned at Date Recorded Not on file documented as of this encounter Last Filed Vital Signs Vital Sign Reading Time Taken Comments Blood Pressure 132/76 04/17/2010 3:14 PM MODEL MAKER PLASTER Pulse 84 04/17/2010 3:14 PM MODEL MAKER PLASTER Temperature - - Respiratory Rate - - Oxygen Saturation - - Inhaled Oxygen Concentration - - Weight 62.1 kg (137 lb) 04/17/2010 3:14 PM MODEL MAKER PLASTER Height 156.2 cm (5' 1.5) 04/17/2010 3:14 PM MODEL MAKER PLASTER Body Mass Index 25.47 04/17/2010 3:14 PM MODEL MAKER PLASTER documented in this encounter Progress Notes Irma Rosario - 04/17/2010 3:17 PM CST Images from the original note were not included. HPI Endocrinology: [facility], [address] [facility] [address], Ph. [phone] [facility], [address] [place] [address], Danielle Waldrop is a 54 year old [...] in the beginning ofnote. Irma Rosario MD [facility] (CC: No ref. provider found) (CC: Dr. Eldon Conway MD) L MAKER PLASTER documented in this encounter Nursing Notes 04/17/2010 [...] bp completed using cuff size regular RENÉE LBACK LPN documented in this encounter Plan of Treatment Not on filedocumented as of this encounter Procedures Procedure Name Priority Date/Time Associated Comments Diagnosis TSH Routine 04/17/2010 3:41 PM Thyroid nodul e Results for this MODEL MAKER PLASTER S/P partial procedure are i n thyroidectomy the results Hyperandrogenism section. TESTOSTERONE FREE AND Routine 04/17/2010 3:41 PM Thyroid nodule Results for this TOTAL MODEL MAKER PLASTER S/P partial procedure are i n thyroidectomy the results Hyperandrogenism section. T4 FREE Routine 04/17/2010 3:41 PM Thyroid nodul e Results for this MODEL MAKER PLASTER S/P partial procedure are i n thyroidectomy the results Hyperandrogenism section. PARATHYROID HORMONE Routine 04/17/2010 3:41 PM Thyroid n odule Results for this INTACT MODEL MAKER PLASTER S/P partial procedure are i n thyroidectomy the results Hyperandrogenism section. ESTROGENS TOTAL Routine 04/17/2010 3:41 PM Thyroid nodul e Results for this MODEL MAKER PLASTER S/P partial procedure are i n thyroidectomy the results Hyperandrogenism section. COMPREHENSIVE Routine 04/17/2010 3:41 PM Thyroid nodul e Results for this METABOLIC PANEL MODEL MAKER PLASTER S/P partial procedure ar e in thyroidectomy the results Hyperandrogenism section. documented in this encounter Results Estrogens total (04/17/2010 3:41 PM MODEL MAKER PLASTER) Analysis Performed At [facility] logist Time Signature Lab Scanned ESTROGENS, MISYS Result TOTAL-Scan clint Specimen Anatomical Collection Method Collection Time Receive d Time (Source) Location / / Volume Laterality Blood specimen 04/17/2010 3:41 PM 010 3:46 (specimen) MODEL MAKER PLASTER PM MODEL MAKER PLASTER Irma Rosario NP LAB - BLOOD ORDERABLES Performing Organization Address City/State/ZIP Code Phon e Number MISYS (ABNORMAL) Testosterone free and total (04/17/2010 3:41 PM MODEL MAKER PLASTER) Component Value Ref Test Analysis Performed At [facility] gist Range Method Time Signature Percent 1.8 1.0 - [facility] Testosterone 3.8 % [facility] LABS Testosterone <10 (L) 14 - 75 [facility] Total ng/dL [facility] LABS Testosterone Unable to calculate due to low value 0.1 - [facility] Free Total testosterone is less than 10 ng/dL. 1.5 [place] ng/dL [place] LABS Specimen Anatomical Collection Method Collection Time Receive d Time (Source) Location / / Volume Laterality Blood specimen 04/17/2010 3:41 PM 010 3:46 (specimen) MODEL MAKER PLASTER PM MODEL MAKER PLASTER Irma Rosario SENIOR PHARMACY TECHNICIAN LAB - BLOOD ORDERABLES Performing Organization Address City/[facility]/ZIP Code Phon e Number [facility] [address] LABS Parathormone intact (04/17/2010 3:41 PM MODEL MAKER PLASTER) athologist Signature Parathyroid 38 12 - 72 [facility] Hormone Intact pg/mL [facility] LABS Specimen Anatomical Collection Method Collection Time Receive d Time (Source) Location / / Volume Laterality Blood specimen 04/17/2010 3:41 PM 010 3:46 (specimen) MODEL MAKER PLASTER PM MODEL MAKER PLASTER Irma Rosario NP LAB - BLOOD ORDERABLES Performing Organization Address City/[facility]/ZIP Code Phon e Number [facility] [address] [place], [place] [phone] [place] [address] LABS T4 FREE (04/17/2010 3:41 PM MODEL MAKER PLASTER) athologist Signature T4 Free 0.95 0.70 - 1.85 [facility] [facility] ng/dL CLINIC LAB Specimen Anatomical Collection Method Collection Time Receive d Time (Source) Location / / Volume Laterality Blood specimen 04/17/2010 3:41 PM 010 3:46 (specimen) MODEL MAKER PLASTER PM MODEL MAKER PLASTER Irma Rosario SENIOR PHARMACY TECHNICIAN LAB - BLOOD ORDERABLES Performing Organization Address City/State/ZIP Code Phon e Number [facility] [address] [place] [address] [facility] LAB TSH (04/17/2010 3:41 PM MODEL MAKER PLASTER) athologist Signature TSH 1.92 0.4 - 5.0 [facility] mU/L CLINIC LAB Specimen Anatomical Collection Method Collection Time Receive d Time (Source) Location / / Volume Laterality Blood specimen 04/17/2010 3:41 PM 010 3:46 (specimen) MODEL MAKER PLASTER PM MODEL MAKER PLASTER Irma Rosario NP LAB - BLOOD ORDERABLES Performing Organization Address City/State/ZIP Code Phon e Number [facility] [address] [place] [address] [facility] LAB (ABNORMAL) Comprehensive metabolic panel (04/17/2010 3:41 PM MODEL MAKER PLASTER) P athologist Signature Sodium 147 (H) 133 - 144 [place] mmol/L [facility] LAB Potassium 3.9 3.4 - 5.3 [place] mmol/L [facility] LAB Chloride 105 94 - 109 [place] mmol/L [facility] LAB Carbon Dioxide 27 20 - 32 [place] mmol/L [facility] LAB Anion Gap 14 6 - 17 [place] mmol/L [facility] LAB Glucose 91 60 - 99 [place] mg/dL [facility] LAB Urea Nitrogen 16 7 - 30 [place] mg/dL [facility] LAB Creatinine 0.69 0.52 - [place] 1.04 mg/dL [facility] LAB Comment: New IDMS-traceable calibration beginning 10/08/07 GFR Estimate 89 >60 mL/min/1.7m2 [place] [facility] LAB GFR Estimate If Black >90 >60 mL/min/1.7m2 [facility] LAB Calcium 9.6 8.5 - 10.4 mg/dL [facility] Bilirubin Total 0.4 0.2 - 1.3 mg/dL [facility] LAB Albumin 4.7 3.9 - 5.1 g/dL [facility] LAB Comment: Reference range changed on 02/08. Protein Total 7.7 6.8 - 8.8 g/dL [place] [facility] Comment: As of 07, reference range reflects plasma specimen type. Alkaline Phosphatase 65 40 - 150 U/L [facility] ALT 31 0 - 50 U/L [facility] LAB AST 27 0 - 45 U/L [facility] CL[facility] LAB Specimen Anatomical Collection Method Collection Time Receive d Time (Source) Location / / Volume Laterality Blood specimen 04/17/2010 3:41 PM 010 3:46 (specimen) MODEL MAKER PLASTER PM MODEL MAKER PLASTER Irma Rosario NP LAB - BLOOD ORDERABLES Performing Organization Address City/State/ZIP Code Phon e Number [facility] [address] [place] [address] [facility] LAB documented in this encounter Visit Diagnoses Diagnosis Thyroid nodule Nontoxic uninodular goiter S/P partial thyroidectomy Other postprocedural status Hyperandrogenism Other ovarian hyperfunction documented in this encounter Care Teams Fine Wire Drawer Relationship Specialty Start Date End Date Eldon Conway MD PCP - General 07/24/01 02/15/18 [address] [place] [address] documented as of this encounter
--- OUTSIDE RECORDS SUMMARY | 2022-05-18 00:02 | XMS_ITS | Encounter Summary ---
:1955 Author Organization [place] Address [address] [place] [address] Care Team Providers Name Role Phone Eldon Conway MD Primary Care Provider Encounter Details Date Type Department Care Team Description 03/09/2010 Hospital Pathology [facility] Results [address] [place], [place] [address] (Wo rk) Social History [...] Component Value Ref Test Analysis Performed At [facility] Range Method Time Signature Copath Patient Name: DANIELLE WALDROP COPATH Report MR#: [id number] Specimen #: [id number] Collected: 03/09/2010 Received: 03/09/2010 Reported: 03/12/2010 13:14 [...] are identified. ??Block 1 - Frozen section merchandiser retail representative of nodule; block 2 - isthmus [...] no dule. MARITZA/eric 03-12-10 TESTING LAB LOCATION: [address] ??[address] COLLECTION SITE: Client: [facility] Location: [facility] (R) Specimen (Source) Anatomical Collection Method Collection Time Re ceived Time Location / / Volume Laterality 03/09/2010 03/09/2010 11:0 8 AM CDT Janine Fish MD LABORATORY Performing Organization Address City/State/ZIP Code Phon e Number [place] documented in this encounter Visit Diagnoses Not on filedocumented in this encounter Care Teams Spout Worker Relationship Specialty Start Date End Date Eldon Conway MD PCP - General 07/24/01 02/15/18 [address] [place] [address] documented as of this encounter
--- OUTSIDE RECORDS SUMMARY | 2022-05-18 00:02 | XMS_ITS | Encounter Summary ---
:1955 Author Organization [place] Address [address] [place] [address] Care Team Providers Name Role Phone Eldon Conway MD Primary Care Provider Reason for Visit Reason Onset Date Comments Results 08/03/2010 Encounter Details Date Type Department Care Team Description 08/03/2010 Telephone [facility] Michelle Quan MD Results [address] [address] [place] [address] [phone] (Wo rk) Social History Tobacco Use Types [...] labs in 3-6 months/ Trixie Bolivar RN ECT CONSTRUCTION MANAGER Telephone Encounter - Michelle Goins - 08/03/2010 1:29 PM CST Please inform pt : pt has high total & bad cholesterol , recommend to start taking simvastatin 20 mg low dose. Recommend to watch fat in diet, exercise 3-4 times a week. Gave RX to [facility] in [place] Pt was working 2 jobs until lately, [...] labs along with letter Betina Goins M.D ECT CONSTRUCTION MANAGER documented in this encounter Plan of Treatment Not on filedocumented as of this encounter Visit Diagnoses Diagnosis Hyperlipidemia LDL goal <160 - Primary Other and unspecified hyperlipidemia documented in this encounter Care Teams Java Tech Relationship Specialty Start Date End Date Eldon Conway MD PCP - General 07/24/01 02/15/18 [address] [place] [address] documented as of this encounter
--- OUTSIDE RECORDS SUMMARY | 2022-05-18 00:02 | XMS_ITS | Encounter Summary ---
:1955 Author Organization [place] Address [address] [place] [address] Care Team Providers Name Role Phone Eldon Conway MD Primary Care Provider Reason for Referral Specialty Diagnoses / Procedures Referred By Contact Refer red To Contact Jim Goins MD [facility] [address] [place] [address] Fax: Referral ID Status Reason Start Date Expiration Date Visits Requ ested Visits Authorized Reason for Visit Reason Comments Recheck Medication Cholesterol meds - FASTING Sinus Problem sinus drainage, facial/sinus pain Encounter Details Date Type Department Care Team Description 10/22/2010 Office Visit [facility] Erika Goins, counseling/discussion (Primary Dx); Clinic [place] MD Michelle Hyperlipidemia LDL goal <160; [address] [facility] Acute maxillary sinusitis; [place], [place] [employer] Seasonal allergic rhinitis [phone] [phone] [place] [address] (Wo [...] Signature AST 39 0 - 45 U/L [facility] LAB Specimen Anatomical Collection Method Collection Time Receive d Time (Source) Location / / Volume Laterality Blood specimen 10/22/2010 9:10 AM 011 9:12 (specimen) CDT AM CDT Michelle Goins MD LAB - BLOOD ORDERABLES Performing Organization Address [facility] e Number [facility] [address] [place] [address] [phone] [facility] ALT (10/22/2010 9:10 AM CDT) athologist Signature ALT 45 0 - 50 U/L [facility] LAB Specimen Anatomical Collection Method Collection Time Receive d Time (Source) Location / / Volume Laterality Blood specimen 10/22/2010 9:10 AM 011 9:12 (specimen) CDT AM CDT Michelle Goins MD LAB - BLOOD ORDERABLES Performing Organization Address [facility] [address] [place] [address] [phone] [facility] (ABNORMAL) Lipid panel reflex to direct LDL (10/22/2010 9:10 AM CDT) athologist Signature Cholesterol 253 (H) 0 - 200 [facility] mg/dL CLINIC LAB Comment: LDL Cholesterol is the primary guide to therapy. The NCEP recommends further evaluation of: patients with cholesterol greater than 200 mg/dL if additional risk facto rs are present, cholesterol greater than 240 mg/dL, triglycerides greater than 1 50 mg/dL, or HDL less than 40 mg/dL. Triglycerides 120 0 - 150 mg/dL [facility] LAB HDL Cholesterol 72 50 - 110 mg/dL [facility] LDL Cholesterol Calculated 157 (H) 0 - 129 mg/dL [facility] Comment: LDL Cholesterol is the primary guide to therapy: LDL-cholesterol goal in high risk patients is <100 mg/dL and in very high risk patients is <70 mg/dL. VLDL-Cholesterol 24 0 - 30 mg/dL [facility] LAB Cholesterol/HDL Ratio 3.5 0.0 - 5.0 [facility] Specimen Anatomical Collection Method Collection Time Receive d Time (Source) Location / / Volume Laterality Blood specimen 10/22/2010 9:10 AM 011 9:12 (specimen) CDT AM CDT Michelle Goins MD LAB - BLOOD ORDERABLES Performing Organization Address City/State/ZIP Code Phon e Number [facility] [address] [place] [address] [facility] documented in this encounter Visit Diagnoses Diagnosis Advanced directives, counseling/discussi on - Primary Other specified counseling Hyperlipidemia LDL goal <160 Other and unspecified hyperlipidemia Acute maxillary sinusitis Seasonal allergic rhinitis Allergic rhinitis, cause unspecified documented in this encounter Care Teams Jet Inspector Relationship Specialty Start Date End Date Eldon Conway MD PCP - General 07/24/01 02/15/18 [address] [place] [address] documented as of this encounter
--- OUTSIDE RECORDS SUMMARY | 2022-05-18 00:02 | XMS_ITS | Encounter Summary ---
:1955 Author Organization [place] Address [address] [place] [address] Care Team Providers Name Role Phone Eldon [...] as of this encounter Progress Notes Interface, Plate Colorer - 08/24/2010 6:51 PM CDT Patient Status - Diagnosis/Procedure right thyroid lobectomy - Physical status Stable (s/s of potential complications absent or manageable) - Psychosocial status Stable Discharge Planning - Discharge From: [facility] - Patient Care Unit: 5th floor - PCU - Discharge To: Home/Alternative home Discharge Information - Valuables returned Valuables returned - Discharge information Discharge instructions reviewed with pt/family/so - Accompanied by Spouse - Mode of Travel Wheelchair Medications and Prescriptions - Medications and Prescriptions sent to pharmacy Patient declined Prescriptions [place] script, sent back to pharmacy Support Services [...] Dr. Alba call: - Phone number of [facility] [phone] patient should call: - Is patient going [...] filedocumented in this encounter Care Teams Certified Forklift Operator Relationship Specialty Start Date End Date Eldon Conway MD PCP - General 07/24/01 02/15/18 [address] [facility] [place] [address] documented as of this encounter
--- OUTSIDE RECORDS SUMMARY | 2022-05-18 00:02 | XMS_ITS | Encounter Summary ---
:1955 Author Organization [place] Address [address] [place] [address] Care Team Providers Name Role Phone Eldon Conway MD Primary Care Provider Reason for Visit Reason Onset Date Comments Thyroid Problem 05/01/2010 Encounter Details Date Type Department Care Team Description 05/01/[address] [facility] Irma Carter NP Thyroid Problem [facility] [address], [address] [address] [phone] Social History Tobacco Use Types Packs/Day Years Used Date Smoking Tobacco: Never Alcohol Use Standard Drinks/Week Comments No 0 (1 standard drink = 0.6 oz pure alcoho l) Sex Assigned at Date Recorded Not on file documented as of this encounter Miscellaneous Notes Telephone Encounter - Whitney Sutton - 05/02/2010 10:10 AM CST Detailed message left for pt DROMAT WORKER Telephone Encounter - Irma Rosario - 05/01/2010 10:52 PM CST Yes , of course, for any wound, or surgical complication she should call the surgery clinic. I'll respond to the labs. Irma Rosario MD [facility] DROMAT WORKER Telephone Encounter - October - 05/01/2010 8:38 AM CST Patient calling, partial thyroidectomy 03/09/10, yesterday noticed red area 2 1/2 wide above surgical scar, no pain, no drainage, not itchy, Asking what she should do-call surgeon? Also asking for lab results from recent lab tests please advise DROMAT WORKER documented in this encounter Plan of Treatment Not on filedocumented as of this encounter Visit Diagnoses Not on filedocumented in this encounter Care Teams Bologna Maker Relationship Specialty Start Date End Date Eldon Conway MD PCP - General 07/24/01 02/15/18 [address] [place] [address] documented as of this encounter
--- OUTSIDE RECORDS SUMMARY | 2022-05-18 00:02 | XMS_ITS | Encounter Summary ---
:1955 Author Organization [place] Address [address] [place] [address] Care Team Providers Name Role Phone Eldon Conway MD Primary Care Provider Encounter Details Date Type Department Care Team Description 03/09/2010 Operative Report [facility] Janine Fish, (Air Conditioning Supervisor) [facility] Results [address] [place] [address] (Wo rk) Social History Tobacco [...] 1 gram IV. SURGEON: Janine Fish MD [facility] ATTENDANT: RUBINA Lucas INDICATIONS: Danielle Waldrop is a [...] EM#[id number] Name: DANIELLE WALDROP MRN: [id number] Account: [id number] : 1955 Procedure Date: 03/09/2010 Document: [id number] documented in this encounter Plan of Treatment Not on filedocumented as of this encounter Visit Diagnoses Not on filedocumented in this encounter Care Teams Emergency Department Technician Relationship Specialty Start Date End Date Eldon Conway MD PCP - General 07/24/01 02/15/18 [address] [place] [address] documented as of this encounter
--- OUTSIDE RECORDS SUMMARY | 2022-05-18 00:02 | XMS_ITS | Encounter Summary ---
:1955 Author Organization [place] Address [address] [place] [address] Care Team Providers Name Role Phone Mariaelena Boland Primary Care Provider Reason for Referral Diagnostic Imaging CT Scan (Routine) - Closed Specialty Diagnoses / Procedures Referred By Contact Refer red To Contact Diagnoses Abdominal lump Mariaelena Boland Procedures CT Abdomen Pelvis w Contrast [facility] [address] [place] [address] Referral ID Status Reason Start Date Expiration Date Visits Requ ested Visits Authorized [id number] Closed 10/29/2021 10/29/2022 1 1 Reason for Visit Diagnostic Imaging CT Scan (Routine) - Closed Specialty Diagnoses / Procedures Referred By Contact Refer red To Contact Diagnoses Abdominal lump Mariaelena Boland Procedures CT Abdomen Pelvis w Contrast [facility] [address] [place] [address] Referral ID Status Reason Start Date Expiration Date Visits Requ ested Visits Authorized [id number] Closed 10/29/2021 10/29/2022 1 1 Encounter Details Date Type Department Care Team Description 11/03/2021 Hospital Encounter M [facility] Carolyn Afua Boland Abdominal lump [facility] [address] [place] [address] [phone] Social History Tobacco Use Types Packs/Day Years [...] 12 08/02/2010 (MULTIVITAMIN) per tablet mouth daily. [place]-3 Fatty Acids 1200 Take 1 capsule by 180 capsule 12 MG capsule mouth daily. [id number] Nature's Bounty 0 07/10/2010 Calcium Plus D [...] CT ABDOMEN AND PELVIS WITH CONTRAST LOCATION: [facility] DATE/TIME: 11/03/2021, 8:28 AM INDICATION: Abdominal [...] ABDOMEN AND PELVIS WITH CONTRAS T LOCATION: [facility] DATE/TIME: 11/03/2021, 8:28 AM INDICATION: Abdominal [...] stoo l suggestive of constipation. Mariaelena Boland [facility] ORDERABLES documented in this encounter Visit [...] dose documented in this encounter Care Teams Technology Project Manager Relationship Specialty Start Date End Date Mariaelena Boland PCP - General Internal Medicine 02/16/18 [facility] [address] [place] [address] documented as of this encounter
--- OUTSIDE RECORDS SUMMARY | 2022-05-18 00:02 | XMS_ITS | Encounter Summary ---
:1955 Author Organization [place] Address [address] [place] [address] Care Team Providers Name Role Phone Eldon [...] RESULTS Atrial Rate 66 BPM RADIOLOGY RESULTS GA Interval 94 ms RADIOLOGY RESULTS QRS Duration 80 ms RADIOLOGY RESULTS QT 402 ms RADIOLOGY RESULTS QTc 421 ms RADIOLOGY RESULTS P [place] 5 degrees RADIOLOGY RESULTS R AXIS 1 degrees RADIOLOGY RESULTS T [place] 20 degrees RADIOLOGY RESULTS Interpretation Sinus rhythm with short GA RADIOLOGY ECG Cannot rule out Anterior infarct [...] on filedocumented in this encounter Care Teams Abalone Sheller Relationship Specialty Start Date End Date Eldon Conway MD PCP - General 07/24/01 02/15/18 [address] [place] [address] documented as of this encounter
--- OUTSIDE RECORDS SUMMARY | 2022-05-18 00:02 | XMS_ITS | Clinical Summary ---
:1955 Author Organization [place] Address [address] [place] [address] Care Team Providers Name Role Phone Mariaelena Boland Primary Care Provider Allergies Active Allergy Reactions Severity Noted Date Comments No Known Drug Allergies 08/02/2010 Seasonal Allergies 01/31/2003 Medications Medication Sig Dispensed Refills Start Date End Date Status [id number] Nature's Bounty 0 07/10/2010 Active Calcium Plus D - 600mg/500IU. ONE Softgel cap daily. Multiple Vitamin Take 1 tablet 100 tablet 12 08/02/2010 Active (MULTIVITAMIN) per by mouth daily. tablet [place]-3 Fatty Acids Take 1 capsule 180 capsule [...] / Group WORK COMP WC OTHER 2002-Prese [phone] [address] [place] [address] BCBS BCBS OUT OF [id number] 2021-Amy [id number] [address] [id number] [address] STATE t 0 [place] [address] BenjieDanielle Personal/Family Self 1955 [phone] (Home) [place] [address] [id number] Worker's Employer 1955 [phone] [address] Compensation 6 (Home) [place] [address] Care Teams Stroke Program Coordinator Relationship Specialty Start Date End Date Mariaelena Boland PCP - General Internal Medicine 02/16/18 [facility] [address] [place] [address]
--- OUTSIDE RECORDS SUMMARY | 2022-05-18 00:02 | XMS_ITS | Encounter Summary ---
:1955 Author Organization [place] Address [address] [place] [address] Care Team Providers Name Role Phone Mariaelena Boland Primary Care Provider Reason for Referral Diagnostic Imaging XR - Closed Specialty Diagnoses / Procedures Referred By Contact Refer red To Contact Radiology. Diagnoses Dysphagia Krystian, Mariaelena Rh Xray Rscc Procedures XR Esophagram [facility] [address] [address] Phone: Fax: Referral ID Status Reason Start Date Expiration Date Visits Requ ested Visits Authorized [id number] Closed 02/16/2018 02/16/2019 1 1 Reason for Visit Diagnostic Imaging XR - Closed Specialty Diagnoses / Procedures Referred By Contact Refer red To Contact Radiology. Diagnoses Dysphagia Helgen, Mariaelena Rh Xray Rscc Procedures XR Esophagram [facility] [address] [facility] 2000 [facility] 160 [place] [address] [place] [address] Phone: Fax: Referral ID Status Reason Start Date Expiration Date Visits Requ ested Visits Authorized [id number] Closed 02/16/2018 02/16/2019 1 1 Encounter Details Date Type Department Care Team Description 02/20/2018 Hospital Encounter [facility] Mariaelena Arteaga Dysphagia Imaging [facility] [address] [place] [address] [phone] Social History Tobacco Use Types Packs/Day Years [...] 12 08/02/2010 (MULTIVITAMIN) per tablet mouth daily. [place]-3 Fatty Acids 1200 Take 1 capsule by 180 capsule 12 MG capsule mouth daily. [id number] Nature's Bounty 0 07/10/2010 Calcium Plus D [...] dose documented in this encounter Care Teams Public Events Facilities Rental Manager Relationship Specialty Start Date End Date Mariaelena Boland PCP - General Internal Medicine 02/16/18 [facility] [address] [place] [address] documented as of this encounter
--- OUTSIDE RECORDS SUMMARY | 2022-05-18 00:02 | XMS_ITS | Encounter Summary ---
:1955 Author Organization [place] Address [address] [place] [address] Care Team Providers Name Role Phone Mariaelena [...] on filedocumented in this encounter Care Teams Rubber Washer Relationship Specialty Start Date End Date Mariaelena Boland PCP - General Internal Medicine 02/16/18 [facility] [address] [place] [address] documented as of this encounter
--- OUTSIDE RECORDS SUMMARY | 2022-05-18 00:02 | XMS_ITS | Encounter Summary ---
:1955 Author Organization [place] Address [address] [place] [address] Care Team Providers Name Role Phone Eldon Conway MD Primary Care Provider Reason for Visit Reason Comments Urinary Problem stress incont Encounter Details Date Type Department Care Team Description 09/19/2010 Office Visit [facility] for Oseas Pierson, Urine, incontinence, Bladder Control - stress female [address] (Primary Dx) [address] [place] [address] (Wo rk) [address] [phone] Social History Tobacco Use Types Packs/Day Years [...] one bag gets 6 glasses. Works in [employer], Past Surgical History Procedure Date ??? C nonspecific procedure 1997 partial hysterectomy ??? Colonoscopy completed in 2005 ??? Manager Privacy surgery 1997 Partial Hysterectomy because of prolapsed [...] At Bedtime., Disp: 90 tablet, Rfl: 3; [id number], Nature's Bounty Calcium Plus D - 600mg/500IU. ONE Softgel cap daily., Disp: , Rfl: ; Multiple Vitamin (MULTIVITAMIN) per tablet, Take 1 tablet by mouth daily., Disp: 100 tablet, Rfl: 12 [place]-3 Fatty Acids 1200 MG capsule, Take 1 [...] Negative > NEG (mg/dL) ? ? Specific [place] Urine <=1.005 1.003 - 1.035 ? ? [...] Urine macroscopic only (09/19/2010 2:05 PM CDT) [facility] Method Time Signature Color Urine Yellow [facility] Appearance Urine Clear [facility] Glucose Urine Negative NEG mg/dL [facility] Bilirubin Urine Negative NEG [facility] Ketones Urine Negative NEG mg/dL [facility] Specific [place] <=1.005 1.003 - [place] Urine 1.035 [facility] Blood Urine Trace (A) NEG [facility] pH Urine 6.0 5.0 - 7.0 [place] pH [facility] Protein Albumin Negative NEG mg/dL [place] Urine [facility] Urobilinogen 0.2 0.2 - 1.0 [place] Urine EU/dL [facility] Nitrite Urine Negative NEG [facility] Leukocyte Trace (A) NEG [place] Esterase Urine [facility] Source Midstream [place] Urine [facility] Specimen Anatomical Collection Method Collection Time Receive d Time (Source) Location / / Volume Laterality Urine specimen 09/19/2010 2:05 PM 011 2:06 (specimen) CDT PM CDT Oseas Pierson MD LAB - URINE ORDERABLES Performing Organization Address City/State/ZIP Code Phon e Number [facility] documented in this encounter Visit Diagnoses Diagnosis Urine, incontinence, stress female - [facility] Female stress incontinence documented in this encounter Care Teams Ups Driver Relationship Specialty Start Date End Date Eldon Conway MD PCP - General 07/24/01 02/15/18 [address] [place] [address] documented as of this encounter
--- OUTSIDE RECORDS SUMMARY | 2022-05-18 00:03 | XMS_ITS | Encounter Summary ---
:1955 Author Organization [place] Address [address] [place] [address] Care Team Providers Name Role Phone Eldon [...] as of this encounter Progress Notes Interface, University Registrar - 08/24/2010 7:05 PM CDT General Information - How to be Addressed Danielle - Patient Belongings cell phone - pets and pet supplies salesperson #1: Artemio Waldrop - Relationship to patient #1: - Phone 1: [phone] - Patient's spoken language; Tuvaluan or Bilingual communication style Advance Directive - [...] issues Change/Loss/Stressor - Techniques Used to laugh Pillager with Loss/Stress or Change - QUESTION TO [...] abuse, self neglect, lack of adequate food, mcfp, medical care, or financial exploitation)? Values/Beliefs/Spiritual Care [...] none Considerations - Developmental none Considerations - Anabaptism none Considerations Mutuality/Individual Preferences - What information [...] on filedocumented in this encounter Care Teams Central Office Equipment Engineer Relationship Specialty Start Date End Date Eldon Conway MD PCP - General 07/24/01 02/15/18 [address] [place] [address] documented as of this encounter
--- OUTSIDE RECORDS SUMMARY | 2022-05-18 00:03 | XMS_ITS | Encounter Summary ---
:1955 Author Organization [place] Address [address] [place] [address] Care Team Providers Name Role Phone Eldon Conway MD Primary Care Provider Reason for Referral Specialty Diagnoses / Procedures Referred By Contact Refer red To Contact Eldon Conway [place] [id number] [place] [phone] Referral ID Status Reason Start Date Expiration Date Visits Requ ested Visits Authorized Encounter Details Date Type Department Care Team Description 12/16/2008 Orders Only [facility] Eldon Conway, WIN SIS NOT YET Clinic Hutto MD DEFINED (Primary Dx) [address] [facility] [address] [place] [address] [phone] Social History Tobacco Use Types Packs/Day Years [...] Primary documented in this encounter Care Teams Oilseed Meat Presser Relationship Specialty Start Date End Date Eldon Conway MD PCP - General 07/24/01 02/15/18 [address] [place] [address] documented as of this encounter
--- OUTSIDE RECORDS SUMMARY | 2022-05-18 00:03 | XMS_ITS | Encounter Summary ---
:1955 Author Organization [place] Address [address] [place] [address] Care Team Providers Name Role Phone Eldon Conway MD Primary Care Provider Reason for Visit Reason Comments Pre-Op Exam EKG done 11/24/09. Pre Visit Planning - Done Encounter Details Date Type Department Care Team Description 03/05/2010 Office Visit [facility] Leatha Goinsop Gene ral Physical Exam (Primary Dx); [facility] [place] MD Michelle Screening Mammogram [address] [place], [place] [facility] [address] [address] [place] [phone] [facility] [address] [place] [address] (Wo rk) Social History Tobacco Use Types [...] OniCharlotte reed - 02/27/2010 10:51 AM CDT [place] [address] PRE-OP EVALUATION: Today's date: 03/05/2010 Danielle Waldrop (: 1955) presents for pre-operative evaluation assessment as requested by Dr. Alba. She requires evaluation and anesthesia risk assessment prior to undergoing surgery/procedure for treatment of thyroid nodule removal . Proposed procedure: partial thyroidectomy, possible complete thyroidectomy Date of Surgery/ Procedure: 03/09/10 Time of Surgery/ Procedure: 10:00am Hospital/Surgical Facility: [facility] Primary Physician: Dr Conway Type of [...] 12:32 PM Preop with EKG faxed to [facility]. Maliha Oreilly CMA >> MALIHA OREILLY [...] athologist Signature Hemoglobin 13.8 11.7 - 15.7 [facility] g/dL [facility] Specimen Anatomical Collection Method Collection Time Receive d Time (Source) Location / / Volume Laterality 03/05/2010 10:46 03/05/2010 AM CDT 10:48 AM CDT Michelle Goins MD LABORATORY Performing Organization Address City/State/ZIP Code Phon e Number [facility] [address] [place] [address] [facility] documented in this encounter Visit Diagnoses Diagnosis Preop general physical exam - Primary Other specified pre-operative examinatio n Screening mammogram Other screening mammogram documented in this encounter Care Teams Deicer Inspector Pneumatic Relationship Specialty Start Date End Date Eldon Conway MD PCP - General 07/24/01 02/15/18 [address] [place] [address] documented as of this encounter
--- OUTSIDE RECORDS SUMMARY | 2022-05-18 00:03 | XMS_ITS | Encounter Summary ---
:1955 Author Organization [place] Address [address] [place] [address] Care Team Providers Name Role Phone Eldon Conway MD Primary Care Provider Reason for Visit Reason Onset Date Comments Pt. Information/instruction 06/13/2009 Encounter Details Date Type Department Care Team Description 06/12/2009 Telephone [facility] Eldon Conway, Pt. Clinic Cathy Wadsworth MD Information/instruction [address] [place] [address] [phone] Social History Tobacco Use Types Packs/Day Years Used Date Smoking Tobacco: Never Alcohol Use Standard Drinks/Week Comments No 0 (1 standard drink = 0.6 oz pure alcoho l) Sex Assigned at Date Recorded Not on file documented as of this encounter Miscellaneous Notes Telephone Encounter - Yokasta Forbes - 06/12/2009 9:49 AM MERCHANDISING INTERN Staff Message copied by YOKASTA FORBES on [...] Med Name: levaquin Pharmacy name and location: [facility] Provider they see: lucho Phone number they can be reached at: [phone] Ok to leave a message: no HANDISING INTERN documented in this encounter Plan of Treatment Not on filedocumented as of this encounter Visit Diagnoses Diagnosis Acute maxillary sinusitis - Primary documented in this encounter Care Teams Marine Fireman Relationship Specialty Start Date End Date Eldon Conway MD PCP - General 07/24/01 02/15/18 [address] [place] [address] documented as of this encounter
--- OUTSIDE RECORDS SUMMARY | 2022-05-18 00:03 | XMS_ITS | Encounter Summary ---
:1955 Author Organization [place] Address [address] [place] [address] Care Team Providers Name Role Phone Eldon Conway MD Primary Care Provider Reason for Visit Reason Onset Date Comments Other 01/12/2010 thyroid nodule Encounter Details Date Type Department Care Team Description 01/12/[address] [facility] Deangelo Rosario, PROFESSOR IN FAMILY STUDIES Other (thyroid Clinic [facility] nodule) [address], [address], [place] [address] [phone] Social History Tobacco Use Types Packs/Day Years [...] apt in the clinic. Irma Rosario MD [facility] Telephone Encounter - Chris October - [...] on filedocumented in this encounter Care Teams Accreditation Coordinator Relationship Specialty Start Date End Date Eldon Conway MD PCP - General 07/24/01 02/15/18 [address] [place] [address] documented as of this encounter
--- OUTSIDE RECORDS SUMMARY | 2022-05-18 00:03 | XMS_ITS | Encounter Summary ---
:1955 Author Organization [place] Address [address] [place] [address] Care Team Providers Name Role Phone Eldon Conway MD Primary Care Provider Reason for Visit Reason Comments Radiology Visit Encounter Details Date Type Department Care Team Description 09/06/2008 Orders Only [facility] Scr eening Mammogram [place] (Primary Dx) [address] [place] [address] Social History Tobacco Use Types Packs/Day Years Used Date Smoking Tobacco: Never Alcohol Use Standard Drinks/Week Comments No 0 (1 standard drink = 0.6 oz pure alcoho l) Sex Assigned at Date Recorded Not on file documented as of this encounter Plan of Treatment Not on filedocumented as of this encounter Procedures Procedure Name Priority Date/Time Associated Diagnosis Comme [facility] HC MAMMOGRAM, Routine 09/06/2008 Screening Mammogram [...] mammogram documented in this encounter Care Teams Head Resident Relationship Specialty Start Date End Date Eldon Conway MD PCP - General 07/24/01 02/15/18 [address] [place] [address] documented as of this encounter
--- OUTSIDE RECORDS SUMMARY | 2022-05-18 00:03 | XMS_ITS | Encounter Summary ---
:1955 Author Organization [place] Address [address] [place] [address] Care Team Providers Name Role Phone Eldon Conway MD Primary Care Provider Encounter Details Date Type Department Care Team Description 12/02/2008 Historic Results INTERFACED REPORT Onur Logan MD [place] [address] Social History Tobacco Use Types Packs/Day Years [...] UA with microscopic (12/02/2008 10:00 PM CDT) [facility] Method Time Signature Source Midstream [facility] Urine Color Urine Straw [facility] Appearance Urine Clear [facility] Glucose Urine Negative NEG mg/dL [facility] Bilirubin Urine Negative NEG [facility] Ketones Urine Negative NEG mg/dL [facility] Specific [place] 1.010 1.003 - [facility] Urine 1.035 Blood [...] on filedocumented in this encounter Care Teams Otolaryngology Surgeon Relationship Specialty Start Date End Date Eldon Conway MD PCP - General 07/24/01 02/15/18 [address] [place] [address] documented as of this encounter
--- OUTSIDE RECORDS SUMMARY | 2022-05-18 00:03 | XMS_ITS | Encounter Summary ---
:1955 Author Organization [place] Address [address] [place] [address] Care Team Providers Name Role Phone Eldon Conway MD Primary Care Provider Encounter Details Date Type Department Care Team Description 12/03/2008 Hospital Pathology [facility] Bharath Tracy [facility] Results [address] [facility] [address] [place], [place] [address] (Wo rk) Social History [...] Component Value Ref Test Analysis Performed At [facility] Range Method Time Signature Copath Report Patient Name: DANIELLE ROBB MR#: [id number] Specimen #: [id number] Collected: 12/03/2008 Received: 12/03/2008 Reported: 12/05/2008 13:04 [...] is somewhat congested with a slight exudate. ??Data Base Design Analyst sections. ??DCS/kd MICROSCOPIC: Microscopic examination was performed. MGP/sg 12-05-08 TESTING LAB LOCATION: [address] ??[address] COLLECTION SITE: Client: [facility] Location: PEDS (R) Specimen Anatomical Collection Method Collection Time Receive d Time (Source) Location / / Volume Laterality 12/03/2008 12:25 12/03/2008 9:19 AM CDT AM CDT Bharath Tracy MD LABORATORY Performing Organization Address City/State/ZIP Code Phon e Number [facility] documented in this encounter Visit Diagnoses Not on filedocumented in this encounter Care Teams Retail Team Leader Relationship Specialty Start Date End Date Eldon Conway MD PCP - General 07/24/01 02/15/18 [address] [place] [address] documented as of this encounter
--- OUTSIDE RECORDS SUMMARY | 2022-05-18 00:03 | XMS_ITS | Encounter Summary ---
:1955 Author Organization [place] Address [address] [place] [address] Care Team Providers Name Role Phone Eldon [...] as of this encounter Progress Notes Interface, Assistant Football Coach - 08/26/2010 12:19 AM CDT General Information - How to be Addressed Danielle - Patient Belongings none; family took home - match up person #1: Artemio - Phone 1: [phone] - Patient's spoken language; Norwegian or Bilingual communication style Allergies ?? No [...] for Observation), Skin Inspection, Learning Assessment Interface, Assistant Football Coach - 08/26/2010 12:18 AM CDT Patient Status - Physical status Stable (s/s of potential complications absent or manageable) - Psychosocial status Stable Discharge Planning - Discharge From: [facility] - Patient Care Unit: Pediatrics [...] Dr Tracy call: - Phone number of [facility] [phone] patient should call: - Other Special Care At home instruction sheet for abdominal surgery Needs: given to patient for home. Don't drive if you are taking narcotics. Follow Up Care - Physician/clinician Follow up with Dr Tracy in 2-3 weeks. name: - Phone Number: Call [phone] to make an appointment. Signatures JOEL BEATTY (RN)[Signed 11:45] Authored: Patient Status, Discharge Planning, Discharge Information, Medications and Prescriptions, Support Services, Special Care Needs and Instructions, Follow Up Care documented in this encounter Plan of Treatment Not on filedocumented as of this encounter Visit Diagnoses Not on filedocumented in this encounter Care Teams Snubber Relationship Specialty Start Date End Date Eldon Conway MD PCP - General 07/24/01 02/15/18 [address] [place] [address] documented as of this encounter
--- OUTSIDE RECORDS SUMMARY | 2022-05-18 00:03 | XMS_ITS | Encounter Summary ---
:1955 Author Organization [place] Address [address] [place] [address] Care Team Providers Name Role Phone Eldon Conway MD Primary Care Provider Reason for Referral - Closed Specialty Diagnoses / Procedures Referred By Contact Refer red To Contact Diagnoses Thyroid nodule Enlarged thyroid Michelle Goins MD [facility] [address] [place] [address] Fax: Referral ID Status Reason Start Date Expiration Date Visits Requ ested Visits Authorized [id number] Closed 11/28/2009 11/28/2009 1 1 Reason for Visit Reason Comments Irregular Heart Beat 4-5 days Encounter Details Date Type Department Care Team Description 11/24/2009 Office Visit [facility] Briseida, Jose J Spec ified Cardiac Dysrhythmias (Primary Dx); [facility] [place] MD Michelle Hyperlipidemia; [address] [facility] Enlarged Thyroid; [place], [place] PARTNERS Palpitations; [phone] [address] Thyroid Nodule [phone] [place], [place] [id number] (Wo rk) Social History Tobacco Use Types [...] Body Mass Index 24.72 05/13/2009 11:06 AM ADVISOR ADVOCATE ANGEL [employer] FOUNDER documented in this encounter Progress Notes Michelle [...] STUDIES THYROGLOBULIN AB (11/24/2009 11:06 AM CDT) [facility] gist Method Time Signature Thyroglobulin <20 <40 IU/mL [facility] Antibody [facility] Specimen Anatomical Collection Method Collection Time Receive d Time (Source) Location / / Volume Laterality 11/24/2009 11:06 11/24/2009 AM CDT 11:07 AM CDT Michelle Goins MD LABORATORY Performing Organization Address City/State/ZIP Code Phon e Number [facility] [address] [place] [address] [facility] ANTI-THYROID MICROSOMAL AB (11/24/2009 11:06 AM CDT) athologist Signature Thyroid <10 <35 IU/mL [facility] Peroxidase [facility] Antibody Specimen Anatomical Collection Method Collection Time Receive d Time (Source) Location / / Volume Laterality 11/24/2009 11:06 11/24/2009 AM CDT 11:07 AM CDT Michelle Goins MD LABORATORY Performing Organization Address City/State/ZIP Code Phon e Number [facility] [address] [place] [address] [facility] A.M.A. COMPREHENSIVE MET.PANEL (11/24/2009 11:06 AM CDT) athologist Signature Sodium 144 133 - 144 [place] mmol/L [facility]INIC LAB Potassium 4.4 3.4 - 5.3 [place] mmol/L [facility] LAB Chloride 104 94 - 109 [place] mmol/L [facility] Carbon Dioxide 27 20 - 32 [place] mmol/L [facility] Anion Gap 13 6 - 17 [place] mmol/L [facility] Glucose 92 60 - 99 [place] mg/dL [facility]INIC LAB Urea Nitrogen 13 7 - 30 [place] mg/dL [facility] LAB Creatinine 0.81 0.52 - [place] 1.04 mg/dL CLINIC LAB Comment: New IDMS-traceable calibration beginning 10/08/07 GFR Estimate 74 >60 mL/min/1.7m2 [place] [facility] GFR Estimate If Black 89 >60 mL/min/1.7m2 [facility] Calcium 9.8 8.5 - 10.4 mg/dL [place] [facility] Bilirubin Total 1.0 0.2 - 1.3 mg/dL [place] [facility] Albumin 4.6 3.9 - 5.1 g/dL [place] [facility] Comment: Reference range changed on 02/08. Protein Total 7.7 6.8 - 8.8 g/dL [place] [facility] Comment: As of 07, reference range reflects plasma specimen type. Alkaline Phosphatase 69 40 - 150 U/L [facility] [place] [facility] ALT 25 0 - 50 U/L [facility] LAB AST 32 0 - 45 U/L [facility] LAB Specimen Anatomical Collection Method Collection Time Receive d Time (Source) Location / / Volume Laterality 11/24/2009 11:06 11/24/2009 AM CDT 11:07 AM CDT Michelle Goins MD LABORATORY Performing Organization Address [facility]/ZIP Code Phon e Number [facility] [address] [place] [phone] [facility] (ABNORMAL) A.M.A. LIPID PANEL (11/24/2009 11:06 AM CDT) athologist Signature Cholesterol 262 (H) 0 - 200 [facility] mg/dL CLINIC LAB Comment: LDL Cholesterol is the primary guide to therapy. The NCEP recommends further evaluation of: patients with cholesterol <200 mg/dL if additional risk factors are present, cholesterol >240 mg/dL, triglycerides >150 mg/dL, or HDL <40 mg/dL. Triglycerides 96 0 - 150 mg/dL [facility] HDL Cholesterol 70 50 - 110 mg/dL [facility] LDL Cholesterol Calculated 173 (H) 0 - 129 mg/dL [facility] Comment: LDL Cholesterol is the primary guide to therapy: LDL-cholesterol goal in high risk patients is <100 mg/dL and in very high risk patients is <70 mg/dL. VLDL-Cholesterol 19 0 - 30 mg/dL [facility] Cholesterol/HDL Ratio 3.8 0.0 - 5.0 [facility] Specimen Anatomical Collection Method Collection Time Receive d Time (Source) Location / / Volume Laterality 11/24/2009 11:06 11/24/2009 AM CDT 11:07 AM CDT Michelle Goins MD LABORATORY Performing Organization Address [facility]/ZIP Code Phon e Number [facility] [address] [place] [phone] [facility] CBC WITH PLATELETS (11/24/2009 11:06 AM CDT) athologist Signature WBC 5.3 4.0 - 11.0 [place] 10e9/L [facility] RBC Count 4.55 3.8 - 5.2 [place] 10e12/L [facility] Hemoglobin 14.3 11.7 - [place] 15.7 g/dL [facility] Hematocrit 42.6 35.0 - [place] 47.0 % [facility] MCV 94 78 - 100 [facility] MCH 31.4 26.5 - [place] 33.0 pg [facility] MCHC 33.6 31.5 - [place] 36.5 g/dL [facility] RDW 12.3 10.0 - [place] 15.0 % [facility] Platelet Count 251 150 - 450 [facility] 10e9/L [facility] Specimen Anatomical Collection Method Collection Time Receive d Time (Source) Location / / Volume Laterality 11/24/2009 11:06 11/24/2009 AM CDT 11:07 AM CDT Michelle Goins MD LABORATORY Performing Organization Address City/[facility]/ZIP Code Phon e Number [facility] [address] [place] [address] [facility] T4, FREE, SERUM (11/24/2009 11:06 AM CDT) athologist Signature T4 Free 1.10 0.70 - 1.85 [place] [facility] ng/dL [facility] Specimen Anatomical Collection Method Collection Time Receive d Time (Source) Location / / Volume Laterality 11/24/2009 11:06 11/24/2009 AM CDT 11:07 AM CDT Michelle Goins MD LABORATORY Performing Organization Address City/State/ZIP Code Phon e Number [facility] [address] [place] [address] [facility] TSH- (11/24/2009 11:06 AM CDT) athologist Signature TSH 1.01 0.4 - 5.0 [facility] mU/L [facility] Specimen Anatomical Collection Method Collection Time Receive d Time (Source) Location / / Volume Laterality 11/24/2009 11:06 11/24/2009 AM CDT 11:07 AM CDT Michelle Goins MD LABORATORY Performing Organization Address City/State/ZIP Code Phon e Number [facility] [address] [place] [address] [facility] ELECTROCARDIOGRAM, COMP W/READ (11/24/2009 10:47 [...] goiter documented in this encounter Care Teams Build And Release Manager Relationship Specialty Start Date End Date Eldon Conway MD PCP - General 07/24/01 02/15/18 [address] [place], [place] [id number] documented as of this encounter
--- OUTSIDE RECORDS SUMMARY | 2022-05-18 00:03 | XMS_ITS | Encounter Summary ---
:1955 Author Organization [place] Address [address] [place] [address] Care Team Providers Name Role Phone Eldon Conway MD Primary Care Provider Encounter Details Date Type Department Care Team Description 12/03/2008 Emergency room [facility] Mae Barron, Hospital Results MD EMERGENCY PHYSIC АНДРЕЙ CESPEDES [address] [facility] [address] [place] [address] (Wo rk) Social History Tobacco Use Types [...] to take a look at them to kiln operator helper him in this surgery. I had to make a number of phone calls and it took quite a while to finally talk to someone from, I believe it was [employer], who was able to review the films and would send us a copy. At that point I had talked to them the patient had already gone to the OR, but I still feel films are important and that they should be sent with the patient. The person I talked to over at [employer] said that they would try tomake sure that this happened in the future. DIAGNOSIS: Acute appendicitis. Electronically signed on 02/17/2009 18:47 by SRI BARRON MD MT: [id number] Name: DANIELLE ROBB Account: [id number] : 1955 Visit Date: 12/03/2008 Document: [id number] documented in this encounter Plan of Treatment Not on filedocumented as of this encounter Visit Diagnoses Not on filedocumented in this encounter Care Teams Decker Operator Relationship Specialty Start Date End Date Eldon Conway MD PCP - General 07/24/01 02/15/18 [address] [place] [address] documented as of this encounter
--- OUTSIDE RECORDS SUMMARY | 2022-05-18 00:03 | XMS_ITS | Encounter Summary ---
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 HPI Endocrinology [facility] [address] [place], [place] [id number] [facility] [address] [place], [place] [id number] Danielle Waldrop is a 54 year old [...] are answered in detail. Irma Rosario MD [facility] documented in this encounter Nursing Notes [...] system documented in this encounter Care Teams Middle School Spanish Teacher Relationship Specialty Start Date End Date Eldon Conway MD PCP - General 07/24/01 02/15/18 [address] [place] [address] documented as of this encounter
--- OUTSIDE RECORDS SUMMARY | 2022-05-18 00:03 | XMS_ITS | Encounter Summary ---
:1955 Author Organization [place] Address [address] [place] [address] Care Team Providers Name Role Phone Eldon Conway MD Primary Care Provider Encounter Details Date Type Department Care Team Description 12/03/2008 Operative Report [facility] Bharath Tracy, (Wool Hat Sanding Machine Operator) [facility] Results [address] [place] [address] (Wo rk) Social History Tobacco [...] EM#[id number] Name: DANIELLE ROBB MRN: [id number] Account: [id number] : 1955 Procedure Date: 12/03/2008 Document: [id number] cc: Eldon Conway MD documented in this encounter Plan of Treatment Not on filedocumented as of this encounter Visit Diagnoses Not on filedocumented in this encounter Care Teams Insurance Legal Assistant Relationship Specialty Start Date End Date Eldon Conway MD PCP - General 07/24/01 02/15/18 [address] [place] [address] documented as of this encounter
--- OUTSIDE RECORDS SUMMARY | 2022-05-18 00:03 | XMS_ITS | Encounter Summary ---
:1955 Author Organization [place] Address [address] [place] [address] Care Team Providers Name Role Phone Eldon Conway MD Primary Care Provider Encounter Details Date Type Department Care Team Description 01/04/2010 Hospital Pathology [facility] Patrice Bustillo, LOLIS [facility] Results CLINIC [address] [place] [address], [facility] [address], [place] [address] (Wo rk) Social History Tobacco [...] Component Value Ref Test Analysis Performed At [facility] Range Method Time Signature Copath Patient Name: DANIELLE ROBB COPATH Report MR#: [id number] Specimen #: [id number] Collected: 01/04/2010 Received: 01/04/2010 Reported: 01/05/2010 16:03 [...] atypical feature. MARITZA/emil 01-05-10 TESTING LAB LOCATION: [address] ??[id number] COLLECTION SITE: Client: ??[facility] Location: ??[place] (R) Specimen Anatomical Collection Method Collection Time Receive d Time (Source) Location / / Volume Laterality 01/04/2010 2:22 PM 0 2:22 CDT PM CDT Hermann Bustillo NP LABORATORY Performing Organization Address City/State/ZIP Code Phon e Number [facility] documented in this encounter Visit Diagnoses Not on filedocumented in this encounter Care Teams Novelty Maker Relationship Specialty Start Date End Date Eldon Cownay MD PCP - General 07/24/01 02/15/18 [address] [place] [address] documented as of this encounter
--- OUTSIDE RECORDS SUMMARY | 2022-05-18 00:03 | XMS_ITS | Encounter Summary ---
:1955 Author Organization [place] Address [address] [place] [address] Care Team Providers Name Role Phone Eldon Conway MD Primary Care Provider Reason for Visit Reason Comments URI uri symptoms x5 weeks, c/o s inus pain/pressure, cough Encounter Details Date Type Department Care Team Description 08/09/2008 Office Visit [facility] Eldon Conway, URI ([facility] Cathy Wadsworth MD Infection) (Primary [address] [address] [facility] S Dx) [place] [address] [phone] Social History Tobacco Use Types Packs/Day Years Used Date Smoking Tobacco: Never Alcohol Use Standard Drinks/Week Comments No 0 (1 standard drink = 0.6 oz pure alcoho l) Sex Assigned at Date Recorded Not on file documented as of this encounter Last Filed Vital Signs Vital Sign Reading Time Taken Comments Blood Pressure 110/62 08/09/2008 8:30 AM MANAGER [place]ANGE Pulse 80 08/09/2008 8:30 AM MANAGER [place] Temperature 36.8 ??C (98.2 ??F) 08/09/2008 8:30 AM MANAGER [place] Respiratory Rate 16 08/09/2008 8:30 AM MANAGER [place] Oxygen Saturation - - Inhaled Oxygen Concentration - - Weight 59.9 kg (132 lb) 08/09/2008 8:30 AM MANAGER [place]ANGE Height 156.2 cm (5' 1.5) 08/09/2008 8:30 AM MANAGER [place] Body Mass Index 24.54 08/09/2008 8:30 AM MANAGER [place] documented in this encounter Progress Notes Eldon [...] have suggested that the patient Push fluids. GER [place]ANGE documented in this encounter Nursing Notes 08/09/2008 [...] site documented in this encounter Care Teams Career And Transition Teacher Relationship Specialty Start Date End Date Eldon Conway MD PCP - General 07/24/01 02/15/18 [address] [place] [address] documented as of this encounter
--- OUTSIDE RECORDS SUMMARY | 2022-05-18 00:03 | XMS_ITS | Encounter Summary ---
:1955 Author Organization [place] Address [address] [place] [address] Care Team Providers Name Role Phone Eldon Conway MD Primary Care Provider Reason for Visit Reason Comments Derm Problem genital wart--cut off while shaving and currently having excessive bleeding Encounter Details Date Type Department Care Team Description 05/20/2009 Office Visit [facility] Yokasta Ramirez, Nereyda boles (Primary Clinic Outlook Dx) [address] [place] [address] [phone] Social History Tobacco Use Types Packs/Day Years Used Date Smoking Tobacco: Never Alcohol Use Standard Drinks/Week Comments No 0 (1 standard drink = 0.6 oz pure alcoho l) Sex Assigned at Date Recorded Not on file documented as of this encounter Last Filed Vital Signs Vital Sign Reading Time Taken Comments Blood Pressure 124/80 05/20/2009 8:44 AM CALENDER WIND UP HELPER Pulse 88 05/20/2009 8:44 AM CALENDER WIND UP HELPER Temperature 36.7 ??C (98 ??F) 05/20/2009 8:44 AM CALENDER WIND UP HELPER Respiratory Rate 16 05/20/2009 8:44 AM CALENDER WIND UP HELPER Oxygen Saturation - - Inhaled Oxygen Concentration - - Weight 59.9 kg (132 lb) 05/20/2009 8:44 AM CALENDER WIND UP HELPER Height - - Body Mass Index 24.54 05/13/2009 11:06 AM CALENDER WIND UP HELPER documented in this encounter Progress Notes Yokasta [...] up as needed for nonresolution of symptoms NDER WIND UP HELPER documented in this encounter Nursing Notes 05/20/2009 [...] complication documented in this encounter Care Teams Photonics Engineering Technician Relationship Specialty Start Date End Date Eldon Conway MD PCP - General 07/24/01 02/15/18 [address] [place] [address] documented as of this encounter
--- OUTSIDE RECORDS SUMMARY | 2022-05-18 00:03 | XMS_ITS | Encounter Summary ---
:1955 Author Organization [place] Address [address] [place] [address] Care Team Providers Name Role Phone Eldon Conway MD Primary Care Provider Reason for Visit Reason Onset Date Comments Other 01/17/2010 questions regarding surgery Encounter Details Date Type Department Care Team Description 01/17/2010 Telephone [facility] Deangelo Rosario, LOLIS Other (questions Clinic [facility] regarding surgery) [address] [place] [address], [address], [place] [address] [phone] Social History Tobacco Use Types Packs/Day Years [...] She can be reached on cell phone [phone] OK to leave message documented in this encounter Plan of Treatment Not on filedocumented as of this encounter Visit Diagnoses Not on filedocumented in this encounter Care Teams Corporate Securities Research Analyst Relationship Specialty Start Date End Date Eldon Conway MD PCP - General 07/24/01 02/15/18 [address] [place] [address] documented as of this encounter
--- OUTSIDE RECORDS SUMMARY | 2022-05-18 00:03 | XMS_ITS | Encounter Summary ---
:1955 Author Organization [place] Address [address] [place] [address] Care Team Providers Name Role Phone Eldon Conway MD Primary Care Provider Reason for Visit Reason Comments Consult Encounter Details Date Type Department Care Team Description 01/02/2010 Office Visit [facility] Deangelo Rosario, CREDIT CARD CLERK Thyroid Nodule; Clinic [facility] Palpitations; [address] CLINIC Hot Flushes [address], [address] [address] [phone] Social History Tobacco Use Types Packs/Day Years [...] original note were not included. HPI Endocrinology [facility] [address] [place], [place] [address] [facility] [address] [place], [place] [id number] Endocrinology Consultation (or referral) requested by: Dr. [...] (scans, labs), and treatment (if not at [place]) : NA ~~~~~~~~~~~~~~~~~~~~~~~~~~~~~~~~~~~~~~~~~~~~SUMMARY~~~~~~~~~~~~~~~~~~~~~~~~~~~~~ ~~~~~~~~~~~~ Pertinent Findings: (History, [...] also discuss her ECG with the son's knobber, since itmay affect their decision making. 3. [...] in the beginning ofnote. Irma Rosario MD [facility] [facility] (CC: Dr. Goins) (CC: Dr. Eldon [...] / Volume Laterality 01/04/2010 2:25 PM CDT Iram Rosario NP LABORATORY Performing Organization Address City/State/ZIP Code Phon e Number RADIOLOGY RESULTS ESTRADIOL (01/02/2010 11:15 AM CDT) P athologist Signature Estradiol 11 pg/mL [facility] LABS Comment: Estradiol Reference Range Female ? Follicular ? 11-165 pg/mL ? Mid-cycle ?146-526 pg/mL ? Luteal ? 33-196 pg/mL ? Postmenopausal (untreated) <37 pg/mL Specimen Anatomical Collection Method Collection Time Receive d Time (Source) Location / / Volume Laterality 01/02/2010 11:15 01/02/2010 AM CDT 11:20 AM CDT Shaban Abraham CREDIT CARD CLERK LABORATORY Performing Organization Address City/State/ZIP Code Phon e Number [facility] [address] LABS FSH (GONADOTROPIN) (01/02/2010 11:15 AM CDT) P athologist Signature FSH 29.8 IU/L [facility] LABS Comment: FSH Reference Range Female: Follicular ?2.5-10.2 ? Mid-cycle ? 3.4-33.4 ? Luteal ?1.5-9. 1 ? Postmenopausal ??23.0-116.3 Specimen Anatomical Collection Method Collection Time Receive d Time (Source) Location / / Volume Laterality 01/02/2010 11:15 01/02/2010 AM CDT 11:20 AM CDT Irma Rosario NP LABORATORY Performing Organization Address City/[facility]/ZIP Code Phon e Number [facility] [address] LABS LH, SERUM (01/02/2010 11:15 AM CDT) P athologist Signature Lutropin 19.3 IU/L [facility] LABS Comment: LH Reference Range Female: Follicular ?1.9-12.5 ? Mid-cycle ? 8.7-76.3 ? Luteal ?0.5-16 .9 ? Postmenopausal ??15.9-54.0 Specimen Anatomical Collection Method Collection Time Receive d Time (Source) Location / / Volume Laterality 01/02/2010 11:15 01/02/2010 AM CDT 11:20 AM CDT Irma Rosario NP LABORATORY Performing Organization Address City/State/ZIP Code Phon e Number [facility] [address] LABS (ABNORMAL) TESTOSTERONE, FREE & TOTAL (01/02/2010 11:15 AM CDT) Patholo gist Method Time Signature Percent 1.8 1.0 - 3.8 [facility] Testosterone Free % [facility] LABS Testosterone 142 (H) 14 - 75 [facility] Total ng/dL [facility] LABS Testosterone Free 2.6 (H) 0.1 - 1.5 [facility] ng/dL [facility] LABS Comment: Analyte Specific Reagents (ASRs) are use d in many laboratory tests necessary for standard medical care and generally do not require FDA approval. ??This test was developed and its preformance character istics determined by [facility]. ? ?It has not been cleared or approved by the U.S. Food and Drug Administration. Specimen Anatomical Collection Method Collection Time Receive d Time (Source) Location / / Volume Laterality 01/02/2010 11:15 01/02/2010 AM CDT 11:20 AM CDT Irma Rosario NP LABORATORY Performing Organization Address City/[facility]/ZIP Code Phon e Number [phone] [place] [address] LABS T3, TOTAL (01/02/2010 11:15 AM CDT) [facility] Method Time Signature Triiodothyronine 83 60 - 181 [facility] (T3) ng/dL [facility] LABS Specimen Anatomical Collection Method Collection Time Receive d Time (Source) Location / / Volume Laterality 01/02/2010 11:15 01/02/2010 AM CDT 11:20 AM CDT Irma Rosario NP LABORATORY Performing Organization Address City/[facility]/ZIP Code Phon e Number [phone] [place] [address] LABS T4, FREE, SERUM (01/02/2010 11:15 AM CDT) P athologist Signature T4 Free 0.96 0.70 - 1.85 [facility] ng/dL CLINIC LAB Specimen Anatomical Collection Method Collection Time Receive d Time (Source) Location / / Volume Laterality 01/02/2010 11:15 01/02/2010 AM CDT 11:20 AM CDT Irma Rosario NP LABORATORY Performing Organization Address City/State/ZIP Code Phon e Number [facility] [address] [place] [address] [facility] LAB TSH- (01/02/2010 11:15 AM CDT) P athologist Signature TSH 0.88 0.4 - 5.0 [facility] mU/L CLINIC LAB Specimen Anatomical Collection Method Collection Time Receive d Time (Source) Location / / Volume Laterality 01/02/2010 11:15 01/02/2010 AM CDT 11:20 AM CDT Irma Rosario NP LABORATORY Performing Organization Address City/State/ZIP Code Phon e Number [facility] [address] [place] [address] [facility] LAB documented in this encounter Visit Diagnoses Diagnosis Thyroid nodule Nontoxic uninodular goiter Palpitations Hot flushes Symptomatic menopausal or female climact dickson states documented in this encounter Care Teams Cso Relationship Specialty Start Date End Date Eldon Conway MD PCP - General 07/24/01 02/15/18 [address] [place] [address] documented as of this encounter
--- OUTSIDE RECORDS SUMMARY | 2022-05-18 00:03 | XMS_ITS | Encounter Summary ---
:1955 Author Organization [place] Address [address] [place] [address] Care Team Providers Name Role Phone Eldon Conway MD Primary Care Provider Reason for Visit Reason Comments Sinus Problem pressure, headache, drainage x2 weeks Encounter Details Date Type Department Care Team Description 05/13/2009 Office Visit [facility] Eldon Conway, Acute Maxillary Clinic [place] Sinusitis [address] [place] [id number] [phone] Social History Tobacco Use Types Packs/Day Years Used Date Smoking Tobacco: Never Alcohol Use Standard Drinks/Week Comments No 0 (1 standard drink = 0.6 oz pure alcoho l) Sex Assigned at Date Recorded Not on file documented as of this encounter Last Filed Vital Signs Vital Sign Reading Time Taken Comments Blood Pressure 106/72 05/13/2009 11:06 AM MECHANIC WELDER Pulse - - Temperature 36.7 ??C (98 ??F) 05/13/2009 11:06 AM MECHANIC WELDER Respiratory Rate - - Oxygen Saturation - - Inhaled Oxygen Concentration - - Weight 60.3 kg (133 lb) 05/13/2009 11:06 AM MECHANIC WELDER Height 156.2 cm (5' 1.5) 05/13/2009 11:06 AM MECHANIC WELDER Body Mass Index 24.72 05/13/2009 11:06 AM MECHANIC WELDER documented in this encounter Progress Notes Eldon [...] have suggested that the patient push fluids ANIC WELDER documented in this encounter Nursing Notes 05/13/2009 [...] sinusitis documented in this encounter Care Teams Resume Specialist Relationship Specialty Start Date End Date Eldon Conway MD PCP - General 07/24/01 02/15/18 [address] [place] [address] documented as of this encounter
--- OUTSIDE RECORDS SUMMARY | 2022-05-18 00:03 | XMS_ITS | Encounter Summary ---
:1955 Author Organization [place] Address [address] [place] [address]. [place] [address] Care Team Providers Name Role Phone Eldon Schwartz MD Primary Care Provider Reason for Visit Reason Comments Physical physical and pap, patient is fasting Encounter Details Date Type Department Care Team Description 04/14/2008 Office Visit [facility] Eldon Schwartz Routin e Physical Examination (Primary Dx); Clinic Cathy Wadsworth MD Hip Pain; [address] [place] [address] Moles; [place], [place]; [phone] Elevated Cholesterol [phone] Social History Tobacco Use Types Packs/Day Years Used Date Smoking Tobacco: Never Alcohol Use Standard Drinks/Week Comments No 0 (1 standard drink = 0.6 oz pure alcoho l) Sex Assigned at Date Recorded Not on file documented as of this encounter Last Filed Vital Signs Vital Sign Reading Time Taken Comments Blood Pressure 108/70 04/14/2008 9:30 AM BINDING CUTTER SYNTHETIC CLOTH Pulse 72 04/14/2008 9:30 AM BINDING CUTTER SYNTHETIC CLOTH Temperature - - Respiratory Rate - - Oxygen Saturation - - Inhaled Oxygen Concentration - - Weight 53.1 kg (117 lb) 04/14/2008 9:30 AM BINDING CUTTER SYNTHETIC CLOTH Height 158.8 cm (5' 2.5) 04/14/2008 9:30 AM BINDING CUTTER SYNTHETIC CLOTH Body Mass Index 21.06 04/14/2008 9:30 AM BINDING CUTTER SYNTHETIC CLOTH documented in this encounter Progress Notes Eldon [...] ok Plan: METRONIDAZOLE 0.75 % VA GEL ING CUTTER SYNTHETIC CLOTH documented in this encounter Plan of Treatment Not on filedocumented as of this encounter Procedures Procedure Name Priority Date/Time Associated Comments Diagnosis CL AFF CBC WITH Routine 04/14/2008 10:56 Routine Physical Resu lts for this PLATELETS AM BINDING CUTTER SYNTHETIC CLOTH Examination procedure are i n the results section. HCL COMPREHENSIVE Routine 04/14/2008 10:56 Routine Physical Re sults for this METABOLIC PANEL AM BINDING CUTTER SYNTHETIC CLOTH Examination procedure ar e in the results section. HCL TSH W/FREE T4 Routine 04/14/2008 10:56 Routine Physical Re sults for this REFLEX AM BINDING CUTTER SYNTHETIC CLOTH Examination procedure are i n the results section. CL AFF A.M.A. LIPID Routine 04/14/2008 10:56 Routine Physical Results for this PANEL AM BINDING CUTTER SYNTHETIC CLOTH Examination procedure are i n the results section. HCL UA MICRO IF Routine 04/14/2008 10:27 Routine Physical Resu lts for this POSITIVE AM BINDING CUTTER SYNTHETIC CLOTH Examination procedure are i n the results section. CL AFF SURGICAL Routine 04/14/2008 12:00 [place] Results for this PATHOLOGY AM BINDING CUTTER SYNTHETIC CLOTH procedure are i n the results section. HCL PAP THIN LAYER Routine 04/14/2008 12:00 Routine Physical R esults for this SCREEN AM BINDING CUTTER SYNTHETIC CLOTH Examination procedure are i n the results section. documented in this encounter Results TSH W/FREE T4 REFLEX (04/14/2008 10:56 AM BINDING CUTTER SYNTHETIC CLOTH) P athologist Signature TSH 0.77 0.4 - 5.0 [facility] mU/L [facility] Specimen Anatomical Collection Method Collection Time Receive d Time (Source) Location / / Volume Laterality 04/14/2008 10:56 04/14/2008 AM BINDING CUTTER SYNTHETIC CLOTH 11:02 AM BINDING CUTTER SYNTHETIC CLOTH Eldon Schwartz MD LABORATORY Performing Organization Address City/State/ZIP Code Phon e Number [facility] [address] [place] [address] [facility] CBC WITH PLATELETS (04/14/2008 10:56 AM BINDING CUTTER SYNTHETIC CLOTH) P athologist Signature WBC 5.8 4.0 - 11.0 [facility] 10e9/L [facility] RBC Count 4.37 3.8 - 5.2 [facility] 10e12/L [facility] Hemoglobin 13.7 11.7 - [facility] 15.7 g/dL [facility] Hematocrit 41.4 35.0 - [facility] 47.0 % [facility] MCV 95 78 - 100 [facility] fl [facility] MCH 31.4 26.5 - [place] [facility] 33.0 pg [facility] MCHC 33.1 31.5 - [facility] 36.5 g/dL [facility] RDW 12.3 10.0 - [facility] 15.0 % [facility] Platelet Count 262 150 - 450 [facility] 10e9/L [facility] Specimen Anatomical Collection Method Collection Time Receive d Time (Source) Location / / Volume Laterality 04/14/2008 10:56 04/14/2008 AM BINDING CUTTER SYNTHETIC CLOTH 11:02 AM BINDING CUTTER SYNTHETIC CLOTH Eldon Schwartz MD LABORATORY Performing Organization Address City/State/ZIP Code Phon e Number [facility] [address] [place] [address] [facility] (ABNORMAL) A.M.A. LIPID PANEL (04/14/2008 10:56 AM BINDING CUTTER SYNTHETIC CLOTH) athologist Signature Cholesterol 240 (H) 0 - 200 [facility] mg/dL CLINIC LAB Comment: LDL Cholesterol [...] mg/dL. Triglycerides 82 0 - 150 mg/dL [facility] AN [facility] HDL Cholesterol 78 50 - 110 mg/dL [facility] LDL Cholesterol Calculated 145 (H) 0 - 129 mg/dL [facility] Comment: LDL Cholesterol is the primary guide to therapy: LDL-cholesterol goal in high risk patients is <100 mg/dL and in very high risk patients is <70 mg/dL. VLDL-Cholesterol 16 0 - 30 mg/dL [facility] Cholesterol/HDL Ratio 3.1 0.0 - 5.0 [facility] Specimen Anatomical Collection Method Collection Time Receive d Time (Source) Location / / Volume Laterality 04/14/2008 10:56 04/14/2008 AM BINDING CUTTER SYNTHETIC CLOTH 11:02 AM BINDING CUTTER SYNTHETIC CLOTH Eldon Schwartz MD LABORATORY Performing Organization Address City/State/ZIP Code Phon e Number [facility] [address] [place] [address] [facility] A.M.A. COMPREHENSIVE MET.PANEL (04/14/2008 10:56 AM BINDING CUTTER SYNTHETIC CLOTH) P athologist Signature Sodium 143 133 - 144 [facility] mmol/L [facility] Potassium 4.6 3.4 - 5.3 [facility] mmol/L CLINIC LAB Chloride 103 94 - 109 [facility] mmol/L [facility] Carbon Dioxide 28 20 - 32 [facility] mmol/L [facility] Anion Gap 12 6 - 17 [facility] mmol/L [facility] Glucose 96 60 - 99 [facility] mg/dL [facility] LAB Urea Nitrogen 14 7 - 30 [facility] mg/dL [facility] Creatinine 0.71 0.52 - [facility] 1.04 mg/dL CLINIC LAB Comment: New IDMS-traceable calibration beginning 10/08/07 GFR Estimate 86 >60 mL/min/1.7m2 [place] E [facility] GFR Estimate If Black >90 >60 mL/min/1.7m2 [facility] Calcium 9.7 8.5 - 10.4 mg/dL [facility] Bilirubin Total 0.6 0.2 - 1.3 mg/dL [facility] Albumin 4.4 3.9 - 5.1 g/dL [facility] Comment: Reference range changed on 02/08. Protein Total 7.3 6.8 - 8.8 g/dL [place] [facility] Comment: As of 07, reference range reflects plasma specimen type. Alkaline Phosphatase 62 40 - 150 U/L [facility] ALT 27 0 - 50 U/L [facility] LAB AST 25 0 - 45 U/L [facility] CLIN IC LAB Specimen Anatomical Collection Method Collection Time Receive d Time (Source) Location / / Volume Laterality 04/14/2008 10:56 04/14/2008 AM BINDING CUTTER SYNTHETIC CLOTH 11:02 AM BINDING CUTTER SYNTHETIC CLOTH Eldon Schwartz MD LABORATORY Performing Organization Address City/[facility]/ZIP Code Phon e Number [facility] [address] [place] [address] [facility] UA MICRO IF POSITIVE (04/14/2008 10:27 AM BINDING CUTTER SYNTHETIC CLOTH) [facility] gist Method Time Signature Color Urine Yellow [facility] Appearance Urine Clear [facility] Glucose Urine Negative NEG mg/dL [facility] Bilirubin Urine Negative NEG [facility] Ketones Urine Negative NEG mg/dL [facility] Specific [place] 1.020 1.003 - [place] Urine 1.035 [facility] Blood Urine Negative NEG [facility] pH Urine 5.5 5.0 - 7.0 [place] pH [facility] Protein Albumin Negative NEG mg/dL [place] Urine [facility] Urobilinogen 0.2 0.2 - 1.0 [place] Urine EU/dL [facility] Nitrite Urine Negative NEG [facility] Leukocyte Negative NEG [place] Esterase Urine [facility] Source Midstream [place] Urine [facility] Specimen Anatomical Collection Method Collection Time Receive d Time (Source) Location / / Volume Laterality 04/14/2008 10:27 04/14/2008 AM BINDING CUTTER SYNTHETIC CLOTH 10:29 AM BINDING CUTTER SYNTHETIC CLOTH Eldon Schwartz MD LABORATORY Performing Organization Address [facility]/ZIP Code Phon e Number [facility] [address] [place] [address] [facility] SURGICAL PATHOLOGY (04/14/2008 12:00 AM BINDING CUTTER SYNTHETIC CLOTH) Component Value Ref Test Analysis Performed At [facility] Method Time Signature Joshua Report Patient Name: DANIELLE ROBB MR#: [id number] Specimen #: [id number] Collected: 04/14/2008 Received: 04/14/2008 Reported: 04/15/2008 13:59 [...] was performed. MGP/kd 04-15-08 TESTING LAB LOCATION: [address] [place], [place] ??[address] COLLECTION SITE: Client: [facility] Location: CRFP (R) Specimen (Source) Anatomical Collection Method Collection Time Re ceived Time Location / / Volume Laterality 04/14/2008 04/14/2008 3:21 PM BINDING CUTTER SYNTHETIC CLOTH Eldon Schwartz MD LABORATORY Performing Organization Address City/State/ZIP Code Phon e Number [facility] A THIN LAYER PAP SCREEN (04/14/2008 12:00 AM BINDING CUTTER SYNTHETIC CLOTH) Component Value Ref Test Analysis Performed At [facility] Method Time Signature PAP NIL COPATH Copath Report COP[facility] Patient Name: DANIELLE ROBB MR#: [id number] Specimen #: [id number] Collected: 04/14/2008 Received: 04/15/2008 Reported: 04/18/2008 13:08 [...] CHEKO Barker (ASCP) Processed and screened at [facility] CLINICAL HISTORY: Hysterectomy: partial, Previous normal pap Date of Last Pap: 1/30/07, TESTING LAB LOCATION: [facility] [address] [place], [place] ??[address] COLLECTION SITE: Client: ??[facility] Location: CRFP (R) Specimen (Source) Anatomical Collection Method Collection Time Re ceived Time Location / / Volume Laterality 04/14/2008 04/15/2008 9:28 AM BINDING CUTTER SYNTHETIC CLOTH Eldon Schwartz MD LABORATORY Performing Organization Address City/State/ZIP Code Phon e Number [facility] documented in this encounter Visit Diagnoses Diagnosis Routine physical examination - Primary Routine general medical examination at a [facility] care facility Hip pain Pain in joint, pelvic region and thigh Moles Benign neoplasm of skin, site unspecifie d Vaginitis Vaginitis and vulvovaginitis, unspecifie d Elevated cholesterol Pure hypercholesterolemia documented in this encounter Care Teams Raise Drill Operator Relationship Specialty Start Date End Date Eldon Schwartz MD PCP - General 07/24/01 02/15/18 [address] [place] [address] documented as of this encounter
--- OUTSIDE RECORDS SUMMARY | 2022-05-18 00:04 | XMS_ITS | Encounter Summary ---
:1955 Author Organization [place] Address [address] [place] [address] Care Team Providers Name Role Phone Eldon Conway MD Primary Care Provider Encounter Details Date Type Department Care Team Description 09/22/2005 Historic Photographic Developer And Printer Neurosurgery Clin ic Cristina Beavers-Jose Warner MD [address] Floor, Clinic [address] [phone] Social History Tobacco Use Types Packs/Day Years Used Date Smoking Tobacco: Never Alcohol Use Standard Drinks/Week Comments No 0 (1 standard drink = 0.6 oz pure alcoho l) Sex Assigned at Date Recorded Not on file documented as of this encounter Progress Notes Cristina Beavers MD - 05/14/2011 11:18 PM [employer]CO[employer] KILN PRELIMINARY SUMMARY: Danielle Robb underwent an overnight [...] MD MT: isaias Name: DANIELLE ROBB Account: [id number] : 1955 Visit Date: 09/22/2005 Document: [id number] [employer] [facility] documented in this encounter Plan of Treatment Not on filedocumented as of this encounter Visit Diagnoses Not on filedocumented in this encounter Care Teams Lead Massage Therapist Relationship Specialty Start Date End Date Eldon Conway MD PCP - General 07/24/01 02/15/[address] [place] [address] documented as of this encounter
--- OUTSIDE RECORDS SUMMARY | 2022-05-18 00:04 | XMS_ITS | Encounter Summary ---
:1955 Author Organization [place] Address [address] [place] [address] Care Team Providers Name Role Phone Eldon Conway MD Primary Care Provider Reason for Referral Specialty Diagnoses / Procedures Referred By Contact Refer red To [place] [id number] [place] [phone] Referral ID Status Reason Start Date Expiration Date Visits Requ ested Visits Authorized Encounter Details Date Type Department Care Team Description 09/10/2005 Orders Only [facility] Eldon Conway, WIN SIS NOT YET Clinic [place] MD DEFINED (Primary Dx) [address] [facility] [address] [place] [phone] Social History Tobacco Use Types Packs/Day Years [...] Primary documented in this encounter Care Teams Seafood Manager Relationship Specialty Start Date End Date Eldon Conway MD PCP - General 07/24/01 02/15/18 [address] [place] [address] documented as of this encounter
--- OUTSIDE RECORDS SUMMARY | 2022-05-18 00:04 | XMS_ITS | Encounter Summary ---
:1955 Author Organization [place] Address [address] [place] [address]. [place] [address] Care Team Providers Name Role Phone Eldon Conway MD Primary Care Provider Reason for Visit Reason Comments Sinus Problem facial pain Encounter Details Date Type Department Care Team Description 02/20/2005 Office Visit [facility] Man, ACUTE NASO PHARYNGITIS Clinic [place] MD Eldon (Primary Dx) [id number] [place] [phone] [facility] [phone] [place] [address] Social History Tobacco Use Types Packs/Day [...] imary documented in this encounter Care Teams Business Objects Relationship Specialty Start Date End Date Eldon Conway MD PCP - General 07/24/01 02/15/18 [address] [place] [address] documented as of this encounter
--- OUTSIDE RECORDS SUMMARY | 2022-05-18 00:04 | XMS_ITS | Encounter Summary ---
:1955 Author Organization [place] Address [address] [place] [address]. [place] [address] Care Team Providers Name Role Phone Eldon Schwartz MD Primary Care Provider Reason for Visit Reason Onset Date Comments Cough 01/11/2004 continues to have ba d cough Encounter Details Date Type Department Care Team Description 01/11/2004 Telephone [facility] Eldon Schwartz, Cough (continues to [facility] [place] have bad cough) [address] [place] [phone] [id number] Social History Tobacco Use Types Packs/Day Years [...] on her med, and close encounter Lorene Washburn/FRUIT HARVEST WORKER >> IVETTE PAL FriJan 13, 2004 1:33 PM LMOM to call jolynn. She can try OTC Guaifenisen per . Ivette Pal RN >> ELDON SCHWARTZ [facility] Jan 12, 2004 2:45 PM lets try [...] on filedocumented in this encounter Care Teams Radial Drill Press Set Up Operator Relationship Specialty Start Date End Date Eldon Schwartz MD PCP - General 07/24/01 02/15/18 [address] [place] [address] documented as of this encounter
--- OUTSIDE RECORDS SUMMARY | 2022-05-18 00:04 | XMS_ITS | Encounter Summary ---
:1955 Author Organization [place] Address [address] [place] [address] Care Team Providers Name Role Phone Eldon Conway MD Primary Care Provider Reason for Referral - Closed Specialty Diagnoses / Procedures Referred By Contact Refer red To Contact Diagnoses Routine general medical examination at a [facility] care facility Eldon Conway MD [address] [place] [address] Referral ID Status Reason Start Date Expiration Date Visits Requ ested Visits Authorized [id number] Closed 08/19/2005 06/08/2011 1 1 E FORMING MACHINE TENDER - Closed Specialty Diagnoses / Procedures Referred By Contact Refer red To Contact Diagnoses Other dyspnea and respiratory [place] Conway [place] [address] [place] [phone] Referral ID Status Reason Start Date Expiration Date Visits Requ ested Visits Authorized [id number] Closed 08/19/2005 06/08/2011 1 1 E FORMING MACHINE TENDER Reason for Visit Reason Comments Consult ?? sleep apnea Pain joint pain Encounter Details Date Type Department Care Team Description 08/19/2005 Office Visit [facility] Eldon Conway, RESPIR ATORY ABNORM NEC; Clinic [place] MD JOINT PAIN-MULT JTS; [address] [place] [address] ACUTE SEROUS OTITIS MEDIA; [place], [place] ROUTINE MEDICAL EXAM [phone] Social History Tobacco Use Types Packs/Day Years Used Date Smoking Tobacco: Never Alcohol Use Standard Drinks/Week Comments No 0 (1 standard drink = 0.6 oz pure alcoho l) Sex Assigned at Date Recorded Not on file documented as of this encounter Last Filed Vital Signs Vital Sign Reading Time Taken Comments Blood Pressure 130/70 08/19/2005 2:30 PM SLIDE FORMING MACHINE TENDER Pulse 88 08/19/2005 2:30 PM SLIDE FORMING MACHINE TENDER Temperature - - Respiratory Rate - - Oxygen Saturation - - Inhaled Oxygen Concentration - - Weight 61.7 kg (136 lb) 08/19/2005 2:30 PM SLIDE FORMING MACHINE TENDER Height 159.4 cm (5' 2.75) 08/19/2005 2:30 PM SLIDE FORMING MACHINE TENDER Body Mass Index 24.28 08/19/2005 2:30 PM SLIDE FORMING MACHINE TENDER documented in this encounter Progress Notes Eldon [...] MEDIA Note: IMPROVING Plan: CONTINUE PRESENT MEDICATIN E FORMING MACHINE TENDER documented in this encounter Nursing Notes 08/19/2005 2:30 PM CST >> YOKASTA FORBES 08/19/2005 2:26 pm Patient presents with: Consult - ?? sleep apnea Pain - joint pain Initial BP 130/70 Pulse 88 Ht 5' 2.75 (1.59m) Wt 136 lbs (61.7kg) LMP Hysterectomy Body mass index is 24.28 kg/(m^2).. BP completed using cuff size: regular Yokasta Forbes REELER OPERATOR documented in this encounter Plan of Treatment Not on filedocumented as of this encounter Procedures Procedure Name Priority Date/Time Associated Comments Diagnosis HCL RHEUMATOID FACTOR Routine 08/19/2005 2:41 PM Joint Pain-Mu lt Jts Results for this SLIDE FORMING MACHINE TENDER procedure are i n the results section. CL AFF ANTINUCLEAR Routine 08/19/2005 2:41 PM Joint Pain-Mult Jts Results for this ANTIBODIES SLIDE FORMING MACHINE TENDER procedure are i n the results section. HCL SED RATE (ESR) Routine 08/19/2005 2:41 PM Joint Pain-Mult Jts Results for this SLIDE FORMING MACHINE TENDER procedure are i n the results section. documented in this encounter Results ANTINUCLEAR ANTIBODIES (08/19/2005 2:41 PM SLIDE FORMING MACHINE TENDER) P athologist Signature [place] Screen by 1.0 [facility] Comment: Interpretation: ??Weakly Positive Follow-up testing is not recommended un less clinically indicated. ??DALTON samples are retained in the Protein Lab for 30 days. ??Please contact the laboratory to request additional tests. Specimen Anatomical Collection Method Collection Time Receive d Time (Source) Location / / Volume Laterality 08/19/2005 2:41 PM 6 2:44 SLIDE FORMING MACHINE TENDER PM SLIDE FORMING MACHINE TENDER Eldon Conway MD LABORATORY Performing Organization Address City/[facility]/ZIP Code Phon e Number [facility] [address] [place] [address] [facility] RHEUMATOID FACTOR (08/19/2005 2:41 PM SLIDE FORMING MACHINE TENDER) P athologist Signature Rheumatoid <20 0 - 20 [facility] Factor IU/mL [facility] Specimen Anatomical Collection Method Collection Time Receive d Time (Source) Location / / Volume Laterality 08/19/2005 2:41 PM 6 2:44 SLIDE FORMING MACHINE TENDER PM SLIDE FORMING MACHINE TENDER Eldon Conway MD LABORATORY Performing Organization Address City/[facility]/ZIP Code Phon e Number [address] [address] [facility] SED RATE, AUTO (08/19/2005 2:41 PM SLIDE FORMING MACHINE TENDER) P athologist Signature Sed Rate 9 0 - 30 mm/h [facility] Specimen Anatomical Collection Method Collection Time Receive d Time (Source) Location / / Volume Laterality 08/19/2005 2:41 PM 6 2:44 SLIDE FORMING MACHINE TENDER PM SLIDE FORMING MACHINE TENDER Eldon Conway MD LABORATORY Performing Organization Address City/[facility]/ZIP Code Phon e Number [facility] [address] [place] [address] [facility] documented in this encounter Visit Diagnoses Diagnosis Other dyspnea and respiratory abnormalit y Pain in joint, multiple sites Acute serous otitis media Routine general medical examination at a health care facility documented in this encounter Care Teams Curator [employer] Relationship Specialty Start Date End Date Eldon Conway MD PCP - General 07/24/01 02/15/18 [address] [place] [address] documented as of this encounter
--- OUTSIDE RECORDS SUMMARY | 2022-05-18 00:04 | XMS_ITS | Encounter Summary ---
:1955 Author Organization [place] Address [address] [place] [address] Care Team Providers Name Role Phone Eldon Conway MD Primary Care Provider Reason for Visit Reason Onset Date Comments Refill Request 01/09/2004 cheratussin Encounter Details Date Type Department Care Team Description 01/09/2004 Refill [facility] Eldon Conway MD Refill Request [place] [address] (cheratussin) [address] [place] [phone] Social History Tobacco Use Types Packs/Day Years [...] on filedocumented in this encounter Care Teams Lithographing Machine Operator Relationship Specialty Start Date End Date Eldon Conway MD PCP - General 07/24/01 02/15/[address] [place] [address] documented as of this encounter
--- OUTSIDE RECORDS SUMMARY | 2022-05-18 00:04 | XMS_ITS | Encounter Summary ---
:1955 Author Organization [place] Address [address] [place] [address] Care Team Providers Name Role Phone Eldon Conway MD Primary Care Provider Reason for Visit Reason Comments Radiology Visit Encounter Details Date Type Department Care Team Description 05/30/2005 Orders Only [facility] MEDICAL EXAM [place] (Primary Dx) [address] [place] [address] Social History Tobacco Use Types [...] Primary documented in this encounter Care Teams Automatic Edger Relationship Specialty Start Date End Date Eldon Conway MD PCP - General 07/24/01 02/15/18 [address] [facility] [place] [address] documented as of this encounter
--- OUTSIDE RECORDS SUMMARY | 2022-05-18 00:04 | XMS_ITS | Encounter Summary ---
:1955 Author Organization [place] Address [address] [place] [address] Care Team Providers Name Role Phone Eldon Conway MD Primary Care Provider Reason for Visit Reason Onset Date Comments Patient/info Update 06/12/2005 Conitunes with blood y sinus drainage Slk Encounter Details Date Type Department Care Team Description 06/12/2005 Telephone [facility] Eldon Conway Patien t/info Update Clinic Cathy Wadsworth MD (Conitunes with bloody [address] sinus drainage Slk) [place] [phone] Social History Tobacco Use Types Packs/Day Years [...] Pharmacy per Dr. Conway. Yokasta Jeffrey LPN NE EQUIPMENT RESEARCH ENGINEER Telephone Encounter - Ivette Sales - 06/14/2005 10:00 AM CST LMOM to call silver. Ivette Sales RN NE EQUIPMENT RESEARCH ENGINEER Telephone Encounter - Eldon Conway - 06/12/2005 5:56 PM CST JUST A DAB OF NEOSPORIN IN HER NOSE TWICE A DAY. OR WE CAN CALL IN SOME BACTROBAN. NE EQUIPMENT RESEARCH ENGINEER Telephone Encounter - Aarti Keyes - 06/12/2005 9:44 AM CST Pt. called and said that she took the last pill of Levaquin today and is still having bloody nasal drainage and sinus pressure. Please advise and call her with a reponse [phone].Aarti Keyes RN. NE EQUIPMENT RESEARCH ENGINEER documented in this encounter Plan of Treatment Not on filedocumented as of this encounter Visit Diagnoses Not on filedocumented in this encounter Care Teams Distribution Center Assistant Relationship Specialty Start Date End Date Eldon Conway MD PCP - General 07/24/01 02/15/18 [address] [place] [address] documented as of this encounter
--- OUTSIDE RECORDS SUMMARY | 2022-05-18 00:04 | XMS_ITS | Encounter Summary ---
:1955 Author Organization [place] Address [address] [place] [address]. [place] [address] Care Team Providers Name Role Phone Eldon Conway MD Primary Care Provider Reason for Visit Reason Onset Date Comments Results 08/13/2006 please review lab an d send copy Encounter Details Date Type Department Care Team Description 08/13/2006 Telephone [facility] Eldon Conway, Result s (please review Clinic Cathy Wadsworth MD lab and send copy) [address] [place] [phone] Social History Tobacco Use Types Packs/Day Years Used Date Smoking Tobacco: Never Alcohol Use Standard Drinks/Week Comments No 0 (1 standard drink = 0.6 oz pure alcoho l) Sex Assigned at Date Recorded Not on file documented as of this encounter Miscellaneous Notes Telephone Encounter - Isabella Olivarez - 08/19/2006 3:24 PM CDT Letter sent to patient. Marily Olivarez INTERNET APPLICATION DEVELOPER Telephone Encounter - Sunni Shay - 08/18/2006 [...] to home address. Call if questions to [phone] Ok to wait until next week Thanks, Sunni Shay RN NISTRATIVE ASSISTANT OFFICE MANAGER documented in this encounter Plan of Treatment Not on filedocumented as of this encounter Visit Diagnoses Not on filedocumented in this encounter Care Teams Electroplating Worker Relationship Specialty Start Date End Date Eldon Conway MD PCP - General 07/24/01 02/15/18 [address] [place] [address] documented as of this encounter
--- OUTSIDE RECORDS SUMMARY | 2022-05-18 00:04 | XMS_ITS | Encounter Summary ---
:1955 Author Organization [place] Address [address] [place] [address] Care Team Providers Name Role Phone Eldon Conway MD Primary Care Provider Reason for Visit Reason Comments Pain right leg pain Encounter Details Date Type Department Care Team Description 09/03/2005 Office Visit [facility] Eldon Conway, SKIN D [facility] Ananth GRAYSON (Primary Dx) [address] [place] [phone] [phone] Social History Tobacco Use Types Packs/Day Years Used Date Smoking Tobacco: Never Alcohol Use Standard Drinks/Week Comments No 0 (1 standard drink = 0.6 oz pure alcoho l) Sex Assigned at Date Recorded Not on file documented as of this encounter Last Filed Vital Signs Vital Sign Reading Time Taken Comments Blood Pressure 100/60 09/03/2005 1:30 PM PSYCHIATRIC TECHNICIAN ASSISTANT Pulse 80 09/03/2005 1:30 PM PSYCHIATRIC TECHNICIAN ASSISTANT Temperature - - Respiratory Rate - - Oxygen Saturation - - Inhaled Oxygen Concentration - - Weight 61.7 kg (136 lb) 09/03/2005 1:30 PM PSYCHIATRIC TECHNICIAN ASSISTANT Height 158.1 cm (5' 2.25) 09/03/2005 1:30 PM PSYCHIATRIC TECHNICIAN ASSISTANT Body Mass Index 24.68 09/03/2005 1:30 PM PSYCHIATRIC TECHNICIAN ASSISTANT documented in this encounter Progress Notes Eldon [...] completed using cuff size: regular Yokasta Forbes CONSTRUCTION ENGINEER documented in this encounter Plan of Treatment Not on filedocumented as of this encounter Visit Diagnoses Diagnosis Other specified disorder of skin - Prima ry documented in this encounter Care Teams Barrel Stave Inspector Relationship Specialty Start Date End Date Eldon Conway MD PCP - General 07/24/01 02/15/18 [address] [place] [address] documented as of this encounter
--- OUTSIDE RECORDS SUMMARY | 2022-05-18 00:04 | XMS_ITS | Encounter Summary ---
:1955 Author Organization [place] Address [address] [place] [address]. [place] [address] Care Team Providers Name Role Phone Eldon Conway MD Primary Care Provider Encounter Details Date Type Department Care Team Description 09/04/2006 Results Only [facility] Eldon Conway MD Hospital Results [address] [place] [address] (Wo rk) Social History Tobacco [...] Procedure Name Priority Date/Time Associated Diagnosis Comme [facility] MAMMOGRAM, Routine 09/04/2006 9:39 AM Results [...] Exam: Bilateral screening mammography History/Comparison: ??[facility] ?? 07-06-02 Breast parenchyma: Fatty breast tissue d ensity Findings: Negative Impression: Category 1. Negative. This exam was evaluated with the assista nce of computer aided detection (CAD). Eldon Conway MD SPECIAL IMAGING STUDIES documented in this encounter Visit Diagnoses Not on filedocumented in this encounter Care Teams Knee Bolter Relationship Specialty Start Date End Date Eldon Conway MD PCP - General 07/24/01 02/15/18 [address] [place] [address] documented as of this encounter
--- OUTSIDE RECORDS SUMMARY | 2022-05-18 00:04 | XMS_ITS | Encounter Summary ---
:1955 Author Organization [place] Address [address] [place] [address] Care Team Providers Name Role Phone Eldon Conway MD Primary Care Provider Reason for Visit Reason Comments Sinus Problem sinus problems x 2 days Encounter Details Date Type Department Care Team Description 06/04/2005 Office Visit [facility] Eldon Conway, COUGH (Primary Dx) Cathy Wadsworth MD [address] [place] [phone] [phone] Social History Tobacco Use Types Packs/Day Years Used Date Smoking Tobacco: Never Alcohol Use Standard Drinks/Week Comments No 0 (1 standard drink = 0.6 oz pure alcoho l) Sex Assigned at Date Recorded Not on file documented as of this encounter Last Filed Vital Signs Vital Sign Reading Time Taken Comments Blood Pressure 98/56 06/04/2005 3:15 PM ENROLLED NURSE Pulse 80 06/04/2005 3:15 PM ENROLLED NURSE Temperature 37.3 ??C (99.2 ??F) 06/04/2005 3:15 PM ENROLLED NURSE Respiratory Rate - - Oxygen Saturation - [...] have suggested that the patient PUSH FLUIDS. LLED NURSE documented in this encounter Nursing Notes 06/04/2005 [...] completed using cuff size: large Yokasta Jeffrey CLAIMS SPECIALIST documented in this encounter Plan of Treatment Not on filedocumented as of this encounter Visit Diagnoses Diagnosis Cough - Primary documented in this encounter Care Teams Safety And Security Manager Relationship Specialty Start Date End Date Eldon Conway MD PCP - General 07/24/01 02/15/18 [address] [place] [address] documented as of this encounter
--- OUTSIDE RECORDS SUMMARY | 2022-05-18 00:04 | XMS_ITS | Encounter Summary ---
:1955 Author Organization [place] Address [address] [place] [address] Care Team Providers Name Role Phone Eldon Conway MD Primary Care Provider Encounter Details Date Type Department Care Team Description 01/04/2004 Operative Report Shalom Gannon, (Gas Regulator Repairer Helper) [address] [facility] [address] [place] [address] (Wo rk) Social History Tobacco [...] [id number]_ K JAMEE GANNON MD MT: Document: [id number] [place], [place] Name: DANIELLE ROBB LCN: SDS DSC: 01/02/2004 [place], [place] Name: MR#: : Procedure Date: DANIELLE ROBB [id number] 1955 Doctor: Marily GANNON MD OPERATIVE REPORT Page 1 of 1 documented in this encounter Plan of Treatment Not on filedocumented as of this encounter Visit Diagnoses Not on filedocumented in this encounter Care Teams Natural Resource Technician Relationship Specialty Start Date End Date Eldon Conway MD PCP - General 07/24/01 02/15/18 [address] [place] [address] documented as of this encounter
--- OUTSIDE RECORDS SUMMARY | 2022-05-18 00:04 | XMS_ITS | Encounter Summary ---
:1955 Author Organization [place] Address [address] [place] [address] Care Team Providers Name Role Phone Eldon Conway MD Primary Care Provider Encounter Details Date Type Department Care Team Description 09/17/2005 Orders Only [facility] Eldon Conway, WIN SIS NOT YET Clinic [place] DEFINED (Primary Dx) [address] [facility] [address] [place] [phone] Social History Tobacco Use Types Packs/Day Years [...] Primary documented in this encounter Care Teams Solar Project Manager Relationship Specialty Start Date End Date Eldon Conway MD PCP - General 07/24/01 02/15/[address] [place] [address] [phone] documented as of this encounter
--- OUTSIDE RECORDS SUMMARY | 2022-05-18 00:04 | XMS_ITS | Encounter Summary ---
:1955 Author Organization [place] Address [address] [place] [address] Care Team Providers Name Role Phone Eldon Conway MD Primary Care Provider Reason for Visit Reason Onset Date Comments Nurse Advice Line 06/15/2007 sinus Encounter Details Date Type Department Care Team Description 06/15/2007 Telephone [facility] Eldon Conway, Nurse Advice Line Clinic Cathy Wadsworth MD (sinus) [address] [place] [phone] [phone] Social History Tobacco Use Types Packs/Day Years [...] has been addressed yet. Aarti Keyes RN. ICAL LAW PROFESSOR Telephone Encounter - Mel Collins - 06/15/2007 9:07 AM CST Pt calls, has no insurance this month, c/o sinus sxs x 3-4 days, voice hoarse, nose swollen and hot, a lot of PND, bloody noses with green stuff, some sinus pain, burning across nose, hx of sinusitis, would like rx, call pt if tbl otherwise pt will f/u with pharmacy Mel Collins RN ICAL LAW PROFESSOR documented in this encounter Plan of Treatment Not on filedocumented as of this encounter Visit Diagnoses Diagnosis Acute nasopharyngitis (common cold) - Pr imary documented in this encounter Care Teams Principal Statistical Scientist Relationship Specialty Start Date End Date Eldon Conway MD PCP - General 07/24/01 02/15/18 [address] [place] [address] documented as of this encounter
--- OUTSIDE RECORDS SUMMARY | 2022-05-18 00:04 | XMS_ITS | Encounter Summary ---
:1955 Author Organization [place] Address [address] [place] [address] Care Team Providers Name Role Phone Eldon Conway MD Primary Care Provider Encounter Details Date Type Department Care Team Description 09/21/2007 Therapy Visit [facility] B ACK SYMPTOMS; Orthopedic J, DC SOMAT DYSFUNC SACRAL REG; Care-[place] [facility] REVIVE WELLNESS SOMAT DYSFUNC LOWER EXTR; [address], [place] [address] [place] [address] PAIN-[place] [address] [place] [address] [place], [place] 9[address] Social History Tobacco Use Types Packs/Day Years [...] Name Priority Date/Time Associated Diagnosis Comme nts [facility] THERAPEUTIC Routine 12/04/2007 2:48 PM Other Symptoms EXERCISES CDT Referable to [place] Nonallopathic Lesion of Sacral Region, not Elsewhere Classi fied Nonallopathic Lesion of Lower Extremities, not Elsewhere Classified Pain in Joint, Pelvic Region and Thigh [facility] CHIROPRA Routine 09/21/2007 9:51 AM Other Back Sy mptoms MANIP,EXTRASP W/ MULT CDT Somat Dysfunc Sacra l PROC Reg Somat Dysfunc Lower Extr Joint Pain-Pelvis [facility] CHIROPRA Routine 09/21/2007 9:51 AM Other Back [...] thigh documented in this encounter Care Teams Keymodule Assembly Machine Tender Relationship Specialty Start Date End Date Eldon Conway MD PCP - General 07/24/01 02/15/18 [address] [place] [address] documented as of this encounter
--- OUTSIDE RECORDS SUMMARY | 2022-05-18 00:04 | XMS_ITS | Encounter Summary ---
:1955 Author Organization [place] Address [address] [place] [address] Care Team Providers Name Role Phone Eldon Conway MD Primary Care Provider Reason for Visit Reason Comments Refill Request new RX for sinus Encounter Details Date Type Department Care Team Description 06/14/2005 Orders Only [facility] Eldon Conway, NASAL & SINUS DIS NEC Clinic [place] (Primary Dx) [address] [place] [address] [place] [address] [phone] Social History Tobacco Use Types Packs/Day Years [...] es documented in this encounter Care Teams Irrigator Sprinkling System Relationship Specialty Start Date End Date Eldon Conway MD PCP - General 07/24/01 02/15/[address] [place] [address] [id number] documented as of this encounter
--- OUTSIDE RECORDS SUMMARY | 2022-05-18 00:04 | XMS_ITS | Encounter Summary ---
:1955 Author Organization [place] Address [address] [place] [address] Care Team Providers Name Role Phone Eldon Conway MD Primary Care Provider Encounter Details Date Type Department Care Team Description 09/22/2005 Orders Only [facility] Eldon Conway, WIN SIS NOT YET Clinic [place] DEFINED (Primary Dx) [address] [facility] [address] [place] [phone] Social History Tobacco Use Types Packs/Day Years Used Date Smoking Tobacco: Never Alcohol Use Standard Drinks/Week Comments No 0 (1 standard drink = 0.6 oz pure alcoho l) Sex Assigned at Date Recorded Not on file documented as of this encounter Plan of Treatment Not on filedocumented as of this encounter Procedures Procedure Name Priority Date/Time Associated Diagnosis Comme [facility] POLYSOMNOGRAPHY, 4 OR MORE Routine 09/22/2005 [...] Primary documented in this encounter Care Teams Emergency Medicine Physician Assistant Relationship Specialty Start Date End Date Eldon Conway MD PCP - General 07/24/01 02/15/[address] [place] [address] documented as of this encounter
--- OUTSIDE RECORDS SUMMARY | 2022-05-18 00:04 | XMS_ITS | Encounter Summary ---
:1955 Author Organization [place] Address [address] [place] [address] Care Team Providers Name Role Phone Eldon Conway MD Primary Care Provider Reason for Visit Reason Comments Medication Problem medication not working Encounter Details Date Type Department Care Team Description 01/05/2004 Office Visit [facility] Eldon Conway, COUGH (Primary Dx) Cathy Wadsworth MD [address] [place] [address] [phone] Social History Tobacco Use Types Packs/Day Years [...] PM CDT REPORT OF OUTSIDE FILMS FROM [facility] ??CLINIC DANIELLE ROBB ?: 55 CHEST 01/05/04: HISTORY: Cough. FINDINGS: Negative. Oseas Juarez M.D./seth D/ Ordering MD/Provider Initial Interpretat ion: Normal/Negative. Electronically filed by Odilia Anguiano ??01/05/2004 ??3:08 PM Eldon Conway MD GENERAL IMAGING WBC & DIFF (01/05/2004 1:18 PM CDT) [place] [facility] Method Time Signature WBC 7.1 4.0 - [facility] 11.0 [facility] 10e9/L CLINIC LAB Diff Method Automated [facility] Method [facility] % Lymphocytes 34 20 - 48 % [facility] % Monocytes 6 0 - 12 % [facility] % Granulocytes 60 40 - 75 % [facility] Absolute 2.4 0.8 - 5.3 [facility] Lymphocytes 10e9/L [facility] Absolute 0.4 0.0 - 1.3 [facility] Monocytes 10e9/L [facility] Absolute 4.3 1.6 - 8.3 [facility] Granulocytes 10e9/L [facility] Specimen Anatomical Collection Method Collection Time Receive d Time (Source) Location / / Volume Laterality 01/05/2004 1:18 PM 1:19 CDT PM CDT Eldon Conway MD LABORATORY Performing Organization Address City/State/ZIP Code Phon e Number [facility] [address] [place] [address] [facility] documented in this encounter Visit Diagnoses Diagnosis Cough - Primary documented in this encounter Care Teams Director Medical Economics Relationship Specialty Start Date End Date Eldon Conway MD PCP - General 07/24/01 02/15/18 [address] [place] [address] documented as of this encounter
--- OUTSIDE RECORDS SUMMARY | 2022-05-18 00:04 | XMS_ITS | Encounter Summary ---
:1955 Author Organization [place] Address [address] [place] [address] Care Team Providers Name Role Phone Eldon Conway MD Primary Care Provider Encounter Details Date Type Department Care Team Description 09/14/2007 Therapy Visit [facility] B ACK SYMPTOMS; Orthopedic J, DC SOMAT DYSFUNC SACRAL REG; Care-[place] [facility] o REVIVE WELLNESS SOMAT DYSFUNC LOWER EXTR; [address], [place] [address] [place] [address] PAIN-[place] [address] [place] [address] [place], [place] [phone] Social History Tobacco Use Types Packs/Day Years [...] Name Priority Date/Time Associated Diagnosis Comme nts [facility] CHIROPRA Routine 09/14/2007 1:53 PM Other Back Sy mptoms MANIP,EXTRASP W/ MULT CDT Somat Dysfunc Sacra l PROC Reg Somat Dysfunc Lower Extr Joint Pain-Pelvis [facility] CHIROPRA Routine 09/14/2007 1:53 PM Other Back Sy mptoms MANIP,SPINAL,1-2 REGIONS CDT Somat Dysfunc Sa cral Reg Somat Dysfunc Lower Extr Joint Pain-Pelvis [facility] THERAPEUTIC Routine 09/14/2007 1:53 PM Other Back [...] thigh documented in this encounter Care Teams Career Development Manager Relationship Specialty Start Date End Date Eldon Conway MD PCP - General 07/24/01 02/15/18 [address] [place] [address] documented as of this encounter
--- OUTSIDE RECORDS SUMMARY | 2022-05-18 00:04 | XMS_ITS | Encounter Summary ---
:1955 Author Organization [place] Address [address] [place] [address] Care Team Providers Name Role Phone Eldon Conway MD Primary Care Provider Encounter Details Date Type Department Care Team Description 11/18/2004 Emergency room Kosta King MD EMERGENCY PHYSIC [facility] [address] [place] [address] (Wo rk) Social History Tobacco [...] She volunteers that she was up in [facility] yesterday where it was probably contracted. [...] SOCIAL HISTORY: Patient is , lives in [place], is employed in [employer]. Primary clinic is [facility]. FAMILY HISTORY is not contributory. REVIEW [...] discharge. [id number]_ KOSTA KING MD MT: Document: [id number] [place], [place] Name: MR#: DANIELLE ROBB -10 EMERGENCY ROOM ENCOUNTER Page 2 of 2 LCN: CELSO DSC: 11/18/2004 [place], [place] Name: MR#: DANIELLE ROBB [id number] : Admit Date: Account #: 1955 11/18/2004 [id number] Doctor: KOSTA KING MD EMERGENCY ROOM ENCOUNTER Page 1 of 2 documented in this encounter Plan of Treatment Not on filedocumented as of this encounter Visit Diagnoses Not on filedocumented in this encounter Care Teams Import Manager Relationship Specialty Start Date End Date Eldon Conway MD PCP - General 07/24/01 02/15/18 [address] [place] [address] documented as of this encounter
--- OUTSIDE RECORDS SUMMARY | 2022-05-18 00:04 | XMS_ITS | Encounter Summary ---
:1955 Author Organization [place] Address [address] [place] [address] Care Team Providers Name Role Phone Eldon Schwartz MD Primary Care Provider Reason for Visit Reason Onset Date Comments Referral 01/17/2004 Pt requesting referr al Encounter Details Date Type Department Care Team Description 01/17/2004 Telephone [facility] Eldon Schwartz Referr al (Pt requesting Clinic Cathy Wadsworth MD referral) [address] [place] [phone] Social History Tobacco Use Types Packs/Day Years Used Date Smoking Tobacco: Never Alcohol Use Standard Drinks/Week Comments No 0 (1 standard drink = 0.6 oz pure alcoho l) Sex Assigned at Date Recorded Not on file documented as of this encounter Miscellaneous Notes Telephone Encounter - 01/17/2004 1:45 PM CDT >> LETICIA COLEMAN FriJan 18, 2004 2:47 PM Patient given number for ND LUNG-patient will schedule-Leticia Niño >> ELDON SCHWARTZ [...] on filedocumented in this encounter Care Teams Tape Controlled Machine Stitcher Relationship Specialty Start Date End Date Eldon Schwartz MD PCP - General 07/24/01 02/15/18 [address] [place] [address] documented as of this encounter
--- OUTSIDE RECORDS SUMMARY | 2022-05-18 00:04 | XMS_ITS | Encounter Summary ---
:1955 Author Organization [facility] Address [address] [place] [address] Care Team Providers Name Role Phone Eldon Schwartz MD Primary Care Provider Reason for Visit Reason Comments Physical patient is fasting Electronic Lab Technician Exam Encounter Details Date Type Department Care Team Description 07/08/2006 Office Visit [facility] Eldon Schwartz [facility] Cathy Wadsworth MD (Primary Dx) [address] [place] [phone] Social History Tobacco Use Types Packs/Day Years Used Date Smoking Tobacco: Never Alcohol Use Standard Drinks/Week Comments No 0 (1 standard drink = 0.6 oz pure alcoho l) Sex Assigned at Date Recorded Not on file documented as of this encounter Last Filed Vital Signs Vital Sign Reading Time Taken Comments Blood Pressure 100/60 07/08/2006 8:00 AM POLICE RADIO DISPATCHER Pulse 68 07/08/2006 8:00 AM POLICE RADIO DISPATCHER Temperature - - Respiratory Rate - - Oxygen Saturation - - Inhaled Oxygen Concentration - - Weight 53.8 kg (118 lb 8 oz) 07/08/2006 8:00 AM POLICE RADIO DISPATCHER Height 157.5 cm (5' 2) 07/08/2006 8:00 AM POLICE RADIO DISPATCHER Body Mass Index 21.67 07/08/2006 8:00 AM POLICE RADIO DISPATCHER documented in this encounter Progress Notes Melvi Echols - 07/08/2006 10:09 AM POLICE RADIO DISPATCHER Addended by: MELVI ECHOLS on: 07/08/2006 10:09:26 AM Modules accepted: Orders CE RADIO DISPATCHER Eldon Schwartz - 07/08/2006 8:41 AM CST [...] Years of Education: 16 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 Tobacco Use: [...] appointment if any problems or failureto improve. CE RADIO DISPATCHER documented in this encounter Nursing Notes 07/08/2006 8:00 AM CST >> YOKASTA FORBES 07/08/2006 8:21 am Patient presents with: Physical - patient is fasting Electronic Lab Technician Exam Initial BP 100/60 Pulse 68 Ht 5' 2 (1.58m) Wt 118 lbs 8.0 oz (53.8kg) LMP Hysterectomy Bodymass index is 21.67 kg/(m^2).. BP completed using cuff size: regular Yokasta Forbes END MAKER documented in this encounter Plan of Treatment Not on filedocumented as of this encounter Procedures Procedure Name Priority Date/Time Associated Comments Diagnosis CL AFF N.GONORRHOEAE, Routine 07/08/2006 10:06 Routine Medical Results for this DNA AMP PROBE AM POLICE RADIO DISPATCHER Exam procedure are in the results section. CL AFF CHLMYD TRACH, Routine 07/08/2006 10:06 Routine Medical Results for this DNA, AMP PROBE AM POLICE RADIO DISPATCHER Exam procedure are in the results section. HCL WET PREP Routine 07/08/2006 10:06 Routine Medical Results for this AM POLICE RADIO DISPATCHER Exam procedure are i n the results section. HCL UA MICRO IF Routine 07/08/2006 8:42 AM Routine Medical Res ults for this POSITIVE POLICE RADIO DISPATCHER Exam procedure are i n the results section. CL AFF CBC WITH Routine 07/08/2006 8:42 AM Routine Medical Res ults for this PLATELETS POLICE RADIO DISPATCHER Exam procedure are i n the results section. HCL COMPREHENSIVE Routine 07/08/2006 8:42 AM Routine Medical R esults for this METABOLIC PANEL POLICE RADIO DISPATCHER Exam procedure ar e in the results section. HCL TSH W/FREE T4 Routine 07/08/2006 8:42 AM Routine Medical R esults for this REFLEX POLICE RADIO DISPATCHER Exam procedure are i n the results section. CL AFF A.M.A. LIPID Routine 07/08/2006 8:42 AM Routine Medical Results for this PANEL POLICE RADIO DISPATCHER Exam procedure are i n the results section. HCL PAP THIN LAYER Routine 07/08/2006 12:00 Routine Medical Re sults for this SCREEN AM POLICE RADIO DISPATCHER Exam procedure are i n the results section. documented in this encounter Results A WET PREP (07/08/2006 10:06 AM POLICE RADIO DISPATCHER) [facility] navabi Method Time Signature Specimen Vagina [facility] LAB Wet Prep No yeast seen [place] No Trichomonas seen [facility] No clue cells seen CLINIC LAB Report status FINAL [id number] [facility] LAB Specimen Anatomical Collection Method Collection Time Receive d Time (Source) Location / / Volume Laterality 07/08/2006 10:06 07/08/2006 AM POLICE RADIO DISPATCHER 10:11 AM POLICE RADIO DISPATCHER Eldon Schwartz MD LABORATORY Performing Organization Address City/State/ZIP Code Phon e Number [facility] [id number] [place] [address] [facility] LAB N.GONORRHOEAE, DNA, (GC) (07/08/2006 10:06 AM POLICE RADIO DISPATCHER) Component Value Ref Test Analysis Performed At [facility] navabi Range Method Time Signature Specimen Vagina [facility] C[facility] LABS N Gonorrhea Negative for N. gonorrhoeae rRNA by associate professor of english mediated amplification. [facility] PCR A negative result by transc ription mediated amplification does not preclude the [place] presence of N. gonorrhoeae infection because re sults are dependent on proper CAMPUS LABS and adequate collection, absence of inhibitors, and suffici ent rRNA to be detected. Specimen Anatomical Collection Method Collection Time Receive d Time (Source) Location / / Volume Laterality 07/08/2006 10:06 07/08/2006 AM POLICE RADIO DISPATCHER 10:10 AM POLICE RADIO DISPATCHER Eldon Schwartz MD LABORATORY Performing Organization Address City/State/ZIP Code Phon e Number [facility] [address] LABS CHLMYD TRACH, DNA, AMP PROBE (07/08/2006 10:06 AM POLICE RADIO DISPATCHER) Component Value Ref Test Analysis Performed At [facility] Range Method Time Signature Specimen Vagina [facility] LABS Chlamydia Negative for C. trachomatis rRNA by associate professor of english mediated amplification. [facility] Trachomatis A negative result by transc ription mediated amplification does not preclude the [place] PCR presence of C. trachomatis infection because results are dependent on proper CAMPUS LABS and adequate collection, absence of inhibitors, and suffici ent rRNA to be detected. Specimen Anatomical Collection Method Collection Time Receive d Time (Source) Location / / Volume Laterality 07/08/2006 10:06 07/08/2006 AM POLICE RADIO DISPATCHER 10:10 AM POLICE RADIO DISPATCHER Eldon Schwartz MD LABORATORY Performing Organization Address City/[facility]/ZIP Code Phon e Number [facility] [address] LABS (ABNORMAL) UA MICRO IF POSITIVE (07/08/2006 8:42 AM POLICE RADIO DISPATCHER) [facility] Method Time Signature Color Urine Yellow [facility] LAB Appearance Urine Clear [facility] LAB Glucose Urine Negative NEG mg/dL [facility] LAB Bilirubin Urine Negative NEG [facility] LAB Ketones Urine Trace (A) NEG mg/dL [facility] LAB Specific [place] 1.025 1.003 - [place] Urine 1.035 [facility] LAB Blood Urine Negative NEG [facility] pH Urine 5.5 5.0 - 7.0 [place] pH [facility] LAB Protein Albumin Negative NEG mg/dL [place] Urine [facility] LAB Urobilinogen 0.2 0.2 - 1.0 [place] Urine EU/dL [facility] LAB Nitrite Urine Negative NEG [facility] LAB Leukocyte Negative NEG [place] Esterase Urine [facility] Source Midstream [place] Urine [facility] LAB Specimen Anatomical Collection Method Collection Time Receive d Time (Source) Location / / Volume Laterality 07/08/2006 8:42 AM 7 8:47 POLICE RADIO DISPATCHER AM POLICE RADIO DISPATCHER Eldon Schwartz MD LABORATORY Performing Organization Address City/[facility]/ZIP Code Phon e Number [facility] [id number] [place] [address] [facility] CBC WITH PLATELETS (07/08/2006 8:42 AM POLICE RADIO DISPATCHER) P athologist Signature WBC 4.4 4.0 - 11.0 [place] 10e9/L [facility] RBC Count 4.60 3.8 - 5.2 [place] 10e12/L [facility] Hemoglobin 14.4 11.7 - [place] 15.7 g/dL [facility] Hematocrit 42.6 35.0 - [place] 47.0 % [facility] MCV 93 78 - 100 [place] fl [facility] MCH 31.3 26.5 - [place] 33.0 pg [facility] MCHC 33.8 32.0 - [place] 36.0 g/dL [facility] RDW 12.2 10.0 - [place] 15.0 % [facility] Platelet Count 225 150 - 450 [facility] 10[facility]9/L [facility] Specimen Anatomical Collection Method Collection Time Receive d Time (Source) Location / / Volume Laterality 07/08/2006 8:42 AM 7 8:47 POLICE RADIO DISPATCHER AM POLICE RADIO DISPATCHER Eldon Schwartz MD LABORATORY Performing Organization Address City/[facility]/ZIP Code Phon e Number [facility] [phone] [place] [address] [facility] TSH W/FREE T4 REFLEX (07/08/2006 8:42 AM POLICE RADIO DISPATCHER) P athologist Signature TSH 1.39 0.4 - 5.0 [place] [facility]/L [facility] Specimen Anatomical Collection Method Collection Time Receive d Time (Source) Location / / Volume Laterality 07/08/2006 8:42 AM 7 8:47 POLICE RADIO DISPATCHER AM POLICE RADIO DISPATCHER Eldon Schwartz MD LABORATORY Performing Organization Address City/[facility]/ZIP Code Phon e Number [facility] [address] [place] [address] [facility] LAB (ABNORMAL) A.M.A. LIPID PANEL (07/08/2006 8:42 AM POLICE RADIO DISPATCHER) P athologist Signature Cholesterol 274 (H) 0 - 200 [facility] Comment: LDL Cholesterol [...] mg/dL. Triglycerides 120 0 - 150 mg/dL [facility] HDL Cholesterol 80 50 - 110 mg/dL [facility] LDL Cholesterol Calculated 171 (H) 0 - 129 mg/dL [facility] Comment: LDL Cholesterol is the primary guide to therapy: LDL-cholesterol goal in high risk patients is <100 mg/dL and in very high risk patients is <70 mg/dL. VLDL-Cholesterol 24 0 - 30 mg/dL [facility] Cholesterol/HDL Ratio 3.5 0.0 - 5.0 [facility] Specimen Anatomical Collection Method Collection Time Receive d Time (Source) Location / / Volume Laterality 07/08/2006 8:42 AM 7 8:47 POLICE RADIO DISPATCHER AM POLICE RADIO DISPATCHER Eldon Schwartz MD LABORATORY Performing Organization Address City/State/ZIP Code Phon e Number [facility] [address] [place] [address] [facility] LAB (ABNORMAL) A.M.A. COMPREHENSIVE MET.PANEL (07/08/2006 8:42 AM POLICE RADIO DISPATCHER) P athologist Signature Sodium 145 (H) 133 - 144 [place] mmol/L [facility] Potassium 3.8 3.4 - 5.3 [place] mmol/L [facility] Chloride 104 94 - 109 [place] mmol/L [facility] Carbon Dioxide 27 20 - 32 [place] mmol/L [facility] Anion Gap 14 6 - 17 [place] mmol/L [facility] Glucose 101 60 - 110 [place] mg/dL [facility] Urea Nitrogen 16 7 - 30 [place] mg/dL [facility] Creatinine 0.90 0[facility]60 [facility] 1.30 mg/dL [facility] GFR Estimate 70 >60 [place] mL/min/1.7 [facility] m2 LAB GFR Estimate If 85 >60 [place] Black mL/min/1.7 [facility] m2 LAB Comment: Stages of [...] studies. Calcium 9.9 8.5 - 10.4 mg/dL [facility] LAB Bilirubin Total 0.5 0.2 - 1.3 mg/dL [facility] Albumin 4.7 (H) 3.3 - 4.6 g/dL [facility] Protein Total 8.1 6.0 - 8.2 g/dL [place] [facility] Alkaline Phosphatase 69 40 - 150 U/L [facility] ALT 28 0 - 50 U/L [facility] CLIN IC LAB AST 27 0 - 45 U/L [facility] CLIN IC LAB Specimen Anatomical Collection Method Collection Time Receive d Time (Source) Location / / Volume Laterality 07/08/2006 8:42 AM 7 8:47 POLICE RADIO DISPATCHER AM POLICE RADIO DISPATCHER Eldon Schwartz MD LABORATORY Performing Organization Address City/State/ZIP Code Phon e Number [facility] [address] [place] [address] [facility] A THIN LAYER PAP SCREEN (07/08/2006 12:00 AM POLICE RADIO DISPATCHER) Component Value Ref Test Analysis Performed At [facility] Range Method Time Signature PAP NIL COP[facility] Copath Report COPATH Patient Name: DANIELLE ROBB MR#: [id number] Specimen #: [id number] Collected: 07/08/2006 Received: 07/08/2006 Reported: 07/10/2006 13:45 [...] CHEKO Barker (ASCP) Processed and screened at [facility] CLINICAL HISTORY: Hysterectomy, Previous normal pap Date of Last Pap: 05-16-05, TESTING LAB LOCATION: [address] ??[phone] COLLECTION SITE: Client: ??[facility] Location: [facility] (R) Specimen (Source) Anatomical Collection Method Collection Time Re ceived Time Location / / Volume Laterality 07/08/2006 07/08/2006 2:48 PM POLICE RADIO DISPATCHER Eldon Schwartz MD LABORATORY Performing Organization Address City/State/ZIP Code Phon e Number [facility] documented in this encounter Visit Diagnoses Diagnosis Routine general medical examination at a health care facility - Primary documented in this encounter Care Teams Leakage Tester Relationship Specialty Start Date End Date Eldon Schwartz MD PCP - General 07/24/01 02/15/18 [address] [place] [address] documented as of this encounter
--- OUTSIDE RECORDS SUMMARY | 2022-05-18 00:04 | XMS_ITS | Encounter Summary ---
:1955 Author Organization [facility] Address [address] [place] [address] Care Team Providers Name Role Phone Eldon Conway MD Primary Care Provider Encounter Details Date Type Department Care Team Description 09/28/2007 Therapy Visit [facility] Welch B ACK SYMPTOMS; Orthopedic J, DC SOMAT DYSFUNC SACRAL REG; [facility] [facility] REVIVE WELLNESS SOMAT DYSFUNC LOWER EXTR; [address], [place] [address] [place] [facility] [address] [place] [address] [place] [address] [place], [place] [id number] Social History Tobacco Use Types Packs/Day Years [...] Name Priority Date/Time Associated Diagnosis Comme nts [facility] Routine 09/28/2007 10:26 AM Other Back S ymptoms MANIP,EXTRASP W/ MULT CDT Somat Dysfunc Sacra l PROC Reg Somat Dysfunc Lower Extr Joint Pain-Pelvis [facility] Routine 09/28/2007 10:26 AM Other Back [...] thigh documented in this encounter Care Teams Equity Manager Relationship Specialty Start Date End Date Eldon Conway MD PCP - General 07/24/01 02/15/18 [address] [place] [address] documented as of this encounter
--- OUTSIDE RECORDS SUMMARY | 2022-05-18 00:04 | XMS_ITS | Encounter Summary ---
:1955 Author Organization [facility] Address [address] [place] [address] Care Team Providers Name Role Phone Eldon Conway MD Primary Care Provider Reason for Referral - Closed Specialty Diagnoses / Procedures Referred By Contact Refer red To [place] [address] [place], [place] [address] Referral ID Status Reason Start Date Expiration Date Visits Requ ested Visits Authorized [id number] Closed 01/26/2004 06/08/2011 1 1 Reason for Visit Reason Comments Back Pain back pain x 2 weeks Encounter Details Date Type Department Care Team Description 01/23/2004 Office Visit [facility] Eldon Conway COUGH (Primary Dx) Cathy Wadsworth MD [address] [place] [phone] Social History Tobacco Use Types Packs/Day Years [...] ??6:23 PM REPORT OF OUTSIDE FILMS FROM [facility] ??CLINIC DANIELLE ROBBLoreta ?: 55 CHEST ONE VIEW: ??01/23/04 FINDINGS: ??Negative chest. Agusto Velasquez M.D. EDEL/smb D/ Electronically filed by Natalie Mascorro ??01/25/2004 ??12:02 PM Eldon Conway MD GENERAL IMAGING documented in this encounter Visit Diagnoses Diagnosis Cough - Primary documented in this encounter Care Teams Outside Plant Field Engineer Relationship Specialty Start Date End Date Eldon Conway MD PCP - General 07/24/01 02/15/18 [address] [place] [address] documented as of this encounter
--- OUTSIDE RECORDS SUMMARY | 2022-05-18 00:04 | XMS_ITS | Encounter Summary ---
:1955 Author Organization [facility] Address [address] [place] [address] Care Team Providers Name Role Phone Eldon Schwartz MD Primary Care Provider Reason for Visit Reason Comments Physical PE/PAP, pt is fasting this A M Encounter Details Date Type Department Care Team Description 05/16/2005 Office Visit [facility] Eldon Schwartz ROUTIN E [facility] EXAM Clinic Cathy Wadsworth MD (Primary Dx) [address] [address] [phone] Social History Tobacco Use Types Packs/Day Years Used Date Smoking Tobacco: Never Alcohol Use Standard Drinks/Week Comments No 0 (1 standard drink = 0.6 oz pure alcoho l) Sex Assigned at Date Recorded Not on file documented as of this encounter Last Filed Vital Signs Vital Sign Reading Time Taken Comments Blood Pressure 112/62 05/16/2005 8:00 AM HIGH SPEED WARPER TENDER Pulse 80 05/16/2005 8:00 AM HIGH SPEED WARPER TENDER Temperature 36.8 ??C (98.2 ??F) 05/16/2005 8:00 AM HIGH SPEED WARPER TENDER Respiratory Rate 16 05/16/2005 8:00 AM HIGH SPEED WARPER TENDER Oxygen Saturation - - Inhaled Oxygen Concentration - - Weight 60.8 kg (134 lb) 05/16/2005 8:00 AM HIGH SPEED WARPER TENDER Height 156.8 cm (5' 1.75) 05/16/2005 8:00 AM HIGH SPEED WARPER TENDER Body Mass Index 24.71 05/16/2005 8:00 AM HIGH SPEED WARPER TENDER documented in this encounter Progress Notes Man [...] 16 Number of Children: 4 Occupational History [employer] Social History Main Topics Tobacco Use: Never [...] appointment if any problems or failureto improve. SPEED WARPER TENDER documented in this encounter Nursing Notes 05/16/2005 [...] AM Routine Medic al Results for this HIGH SPEED WARPER TENDER Exam procedure are i n the results section. HCL UA MICRO IF Routine 05/16/2005 8:40 AM Routine Medical Res ults for this POSITIVE HIGH SPEED WARPER TENDER Exam procedure are i n the results section. CL AFF CBC WITH Routine 05/16/2005 8:39 AM Routine Medical Res ults for this PLATELETS HIGH SPEED WARPER TENDER Exam procedure are i n the results section. HCL COMPREHENSIVE Routine 05/16/2005 8:39 AM Routine Medical R esults for this METABOLIC PANEL HIGH SPEED WARPER TENDER Exam procedure ar e in the results section. HCL TSH W/FREE T4 Routine 05/16/2005 8:39 AM Routine Medical R esults for this REFLEX HIGH SPEED WARPER TENDER Exam procedure are i n the results section. CL AFF A.M.A. LIPID Routine 05/16/2005 8:39 AM Routine Medical Results for this PANEL HIGH SPEED WARPER TENDER Exam procedure are i n the results section. HCL PAP THIN LAYER Routine 05/16/2005 12:00 Routine Medical Re sults for this SCREEN AM HIGH SPEED WARPER TENDER Exam procedure are i n the results section. documented in this encounter Results CRP, CARDIAC RISK (05/16/2005 8:42 AM HIGH SPEED WARPER TENDER) [facility] Signature CRP Cardiac <0.2 mg/L [facility] Risk Reference Values: YPSILANTI Low Risk: ? <1.0 mg/L [facility] Average Risk: ? 1.0-3.0 mg/L High Risk: ?>3.0 mg/L Acute Inflammation: >8.0 mg/L The result units for this test have been changed: mg/L = mg /dL x 10 Specimen Anatomical Collection Method Collection Time Receive d Time (Source) Location / / Volume Laterality 05/16/2005 8:42 AM 5 8:47 HIGH SPEED WARPER TENDER AM HIGH SPEED WARPER TENDER Eldon Schwartz MD LABORATORY Performing Organization Address City/State/ZIP Code Phon e Number [facility] [address] [place], [place] [id number] [place] [address] LABS UA MICRO IF POSITIVE (05/16/2005 8:40 AM HIGH SPEED WARPER TENDER) [facility] Signature Color Urine Yellow [facility] Appearance Urine Clear [facility] Glucose Urine Negative NEG mg/dL [facility] Bilirubin Urine Negative NEG [facility] Ketones Urine Negative NEG mg/dL [facility] Specific [place] 1.025 1.003 - [place] Urine 1.035 [facility] Blood Urine Negative NEG [facility] pH Urine 6.5 5.0 - 7.0 [place] pH [facility] Protein Albumin Negative NEG mg/dL [place] Urine [facility] Urobilinogen 0.2 0.2 - 1.0 [place] Urine EU/dL [facility] Nitrite Urine Negative NEG [facility] Leukocyte Negative NEG [place] Esterase Urine [facility] Source Midstream [place] Urine [facility] Specimen Anatomical Collection Method Collection Time Receive d Time (Source) Location / / Volume Laterality 05/16/2005 8:40 AM 5 8:45 HIGH SPEED WARPER TENDER AM HIGH SPEED WARPER TENDER Eldon Schwartz MD LABORATORY Performing Organization Address [facility]/ZIP Code Phon e Number [address] [address] [facility] CBC WITH PLATELETS (05/16/2005 8:39 AM HIGH SPEED WARPER TENDER) athologist Signature WBC 4.7 4.0 - 11.0 [place] 10e9/L [facility] RBC Count 4.79 3.8 - 5.2 [place] 10e12/L [facility] Hemoglobin 15.1 11.7 - [place] 15.7 g/dL [facility] Hematocrit 44.5 35.0 - [place] 47.0 % [facility] MCV 93 78 - 100 [place] fl [facility] MCH 31.5 26.5 - [place] 33.0 pg [facility] MCHC 33.9 32.0 - [place] 36.0 g/dL [facility] RDW 12.7 10.0 - [place] 15.0 % [facility] Platelet Count 250 150 - 450 [facility] Specimen Anatomical Collection Method Collection Time Receive d Time (Source) Location / / Volume Laterality 05/16/2005 8:39 AM 5 8:44 HIGH SPEED WARPER TENDER AM HIGH SPEED WARPER TENDER Eldon Schwartz MD LABORATORY Performing Organization Address [facility]/ZIP Code Phon e Number [address] [address] [facility] (ABNORMAL) A.M.A. LIPID PANEL (05/16/2005 8:39 AM HIGH SPEED WARPER TENDER) P athologist Signature Cholesterol 301 (H) 0 - 200 [place] mg/dL CLINIC LAB Comment: LDL Cholesterol [...] Triglycerides 157 (H) 0 - 150 mg/dL [facility] AN [facility] HDL Cholesterol 73 50 - 110 mg/dL [facility] LDL Cholesterol Calculated 196 (H) 0 - 129 mg/dL [facility] Comment: LDL Cholesterol is the primary guide to therapy: LDL-cholesterol goal in high risk patients is <100 mg/dL and in very high risk patients is <70 mg/dL. VLDL-Cholesterol 31 (H) 0 - 30 mg/dL [facility] Cholesterol/HDL Ratio 4.1 0.0 - 5.0 [facility] Specimen Anatomical Collection Method Collection Time Receive d Time (Source) Location / / Volume Laterality 05/16/2005 8:39 AM 5 8:44 HIGH SPEED WARPER TENDER AM HIGH SPEED WARPER TENDER Eldon Schwartz MD LABORATORY Performing Organization Address City/State/ZIP Code Phon e Number [facility] [place] [address] [place] [address] [facility] A.M.A. COMPREHENSIVE MET.PANEL (05/16/2005 8:39 AM HIGH SPEED WARPER TENDER) P athologist Signature Sodium 143 133 - 144 [place] [place] mmol/L [facility] Potassium 4.1 3.4 - 5.3 [place] mmol/L [facility] Chloride 102 94 - 109 [place] mmol/L [facility] Carbon Dioxide 32 20 - 32 [place] [place] mmol/L [facility] Anion Gap 9 6 - 17 [place] mmol/L [facility] Glucose 89 60 - 110 [place] mg/dL [facility] Urea Nitrogen 13 5 - 24 [place] mg/dL [facility] Creatinine 0.80 0.60 - [place] 1.30 mg/dL [facility] GFR Estimate >80 >60 [place] mL/min/1.7 [facility] m2 GFR Estimate If >80 >60 [facility] mL/min/1.7 [facility] m2 Calcium 9.6 8.5 - 10.4 [facility] [place] mg/dL [facility] Bilirubin Total 0.6 0.2 - 1.3 [facility] [place] mg/dL [facility] Albumin 4.4 3.3 - 4.6 [facility] [place] g/dL [facility] Protein Total 7.8 6.0 - 8.2 [facility] [place] g/dL [facility] Alkaline 64 40 - 150 [facility] Phosphatase U/L [facility] ALT 37 0 - 50 U/L [facility] AST 28 0 - 45 U/L [facility] Specimen Anatomical Collection Method Collection Time Receive d Time (Source) Location / / Volume Laterality 05/16/2005 8:39 AM 5 8:44 HIGH SPEED WARPER TENDER AM HIGH SPEED WARPER TENDER Eldon Schwartz MD LABORATORY Performing Organization Address City/[facility]/ZIP Code Phon e Number [facility] [address] [place] [address] [facility] TSH W/FREE T4 REFLEX (05/16/2005 8:39 AM HIGH SPEED WARPER TENDER) P athologist Signature TSH 1.00 0.4 - 5.0 [facility] mU/L [facility] Specimen Anatomical Collection Method Collection Time Receive d Time (Source) Location / / Volume Laterality 05/16/2005 8:39 AM 5 8:44 HIGH SPEED WARPER TENDER AM HIGH SPEED WARPER TENDER Eldon Schwartz MD LABORATORY Performing Organization Address City/[facility]/ZIP Code Phon e Number [facility] [address] [place] [address] [facility] A THIN LAYER PAP SCREEN (05/16/2005 12:00 AM HIGH SPEED WARPER TENDER) Component Value Ref Test Analysis Performed At Patholo gist Range Method Time Signature PAP NIL COPATH Copath Report COPATH Patient Name: DANIELLE ROBB MR#: [id number] Specimen #: [id number] Collected: 05/16/2005 Received: 05/16/2005 Reported: 05/17/2005 14:05 [...] RENETTA Hagen (ASCP) [facility] CLINICAL HISTORY: Partial Hysterectomy Post Menopausal, Previous normal pap Date of Last Pap: 01-10, TESTING LAB LOCATION: [facility] [address] [place], [place] ??[address] COLLECTION SITE: Client: ??[facility] Location: [facility] (R) Specimen (Source) Anatomical Collection Method Collection Time Re ceived Time Location / / Volume Laterality 05/16/2005 05/16/2005 2:19 PM HIGH SPEED WARPER TENDER Eldon Schwartz MD LABORATORY Performing Organization Address City/State/ZIP Code Phon e Number [facility] documented in this encounter Visit Diagnoses Diagnosis Routine general medical examination at a health care facility - Primary documented in this encounter Care Teams Contact Lens Edge Buffer Relationship Specialty Start Date End Date Eldon Schwartz MD PCP - General 07/24/01 02/15/18 [address] [place] [address] documented as of this encounter
--- OUTSIDE RECORDS SUMMARY | 2022-05-18 00:05 | XMS_ITS | Encounter Summary ---
:1955 Author Organization [facility] Address [address] [place] [address] Care Team Providers Name Role Phone Eldon Conway MD Primary Care Provider Encounter Details Date Type Department Care Team Description 09/29/2003 Orders Only [facility] Eldon Conway, WIN SIS NOT YET Clinic [place] DEFINED (Primary Dx) [address] [phone] Social History Tobacco Use Types Packs/Day Years Used Date Smoking Tobacco: Never Alcohol Use Standard Drinks/Week Comments No 0 (1 standard drink = 0.6 oz pure alcoho l) Sex Assigned at Date Recorded Not on file documented as of this encounter Plan of Treatment Not on filedocumented as of this encounter Procedures Procedure Name Priority Date/Time Associated Diagnosis Comme nts ZZ CONSULT LIP CUTTER Routine 09/29/2003 DIAGNOSIS NOT YET DE FINED documented in this encounter Results CONSULT LIP CUTTER (09/29/2003) Specimen (Source) Anatomical Location Collection Method / Collectio n Time Received Time / Laterality Volume 09/29/2003 Narrative This result has an attachment that is no t available. Eldon Conway MD REFERRAL documented in this encounter Visit Diagnoses Diagnosis DIAGNOSIS NOT YET DEFINED - Primary documented in this encounter Care Teams Licensed Practical Nurse Clinic Nurse Relationship Specialty Start Date End Date Eldon Conway MD PCP - General 07/24/01 02/15/18 [address] [place] [address] documented as of this encounter
--- OUTSIDE RECORDS SUMMARY | 2022-05-18 00:05 | XMS_ITS | Encounter Summary ---
:1955 Author Organization [facility] Address [address] [place] [address]. [place] [address] Care Team Providers Name Role Phone Eldon Conway MD Primary Care Provider Reason for Visit Reason Comments Pre-Op Exam for surgery on 08/24/03 for LEFT shoulder Encounter Details Date Type Department Care Team Description 08/19/2003 Office Visit [facility] Eldon Conway, PREOP EXAM OTHER Clinic Cathy Wadsworth MD SPECIFIED (Primary Dx) [address] [facility] [address] [place] [address] [phone] Social History Tobacco Use Types Packs/Day Years Used Date Smoking Tobacco: Never Alcohol Use Standard Drinks/Week Comments No 0 (1 standard drink = 0.6 oz pure alcoho l) Sex Assigned at Date Recorded Not on file documented as of this encounter Last Filed Vital Signs Vital Sign Reading Time Taken Comments Blood Pressure 110/74 08/19/2003 2:30 PM COMMERCIAL CREDIT SPECIALIST Pulse 64 08/19/2003 2:30 PM COMMERCIAL CREDIT SPECIALIST Temperature 36.9 ??C (98.4 ??F) 08/19/2003 2:30 PM COMMERCIAL CREDIT SPECIALIST Respiratory Rate 18 08/19/2003 2:30 PM COMMERCIAL CREDIT SPECIALIST Oxygen Saturation - - Inhaled Oxygen Concentration - - Weight 61.2 kg (135 lb) 08/19/2003 2:30 PM COMMERCIAL CREDIT SPECIALIST Height 157.5 cm (5' 2) 08/19/2003 2:30 PM COMMERCIAL CREDIT SPECIALIST Body Mass Index 24.69 08/19/2003 2:30 PM COMMERCIAL CREDIT SPECIALIST documented in this encounter Progress Notes 08/19/2003 2:30 PM COMMERCIAL CREDIT SPECIALIST PATIENT HEALTH QUESTIONNAIRE Danielle Waldrop 1955 Date of Surgery: 08/24/03 Niko capellan of Surgery: [facility] Surgeon: Dr. Villagran Phone number to reach patient on da y of surgery: [phone] 1. Any aspirin compounds in last 2 [...] of patient's past surgical history indicates: NONSPEC [facility] PROCEDURE Comment: hysterectomy Review of the [...] Exam Other Res ults for this NONLAB COMMERCIAL CREDIT SPECIALIST Specified procedure are i n the results section. documented in this encounter Results HGB (08/19/2003 3:02 PM COMMERCIAL CREDIT SPECIALIST) P athologist Signature Hemoglobin 15.4 11.7 - 15.7 [facility] g/dL [facility] Specimen Anatomical Collection Method Collection Time Receive d Time (Source) Location / / Volume Laterality 08/19/2003 3:02 PM 4 3:11 COMMERCIAL CREDIT SPECIALIST PM COMMERCIAL CREDIT SPECIALIST Eldon Conway MD LABORATORY Performing Organization Address City/State/ZIP Code Phon e Number [facility] [address] [place] [address] [facility] documented in this encounter Visit Diagnoses Diagnosis Other specified pre-operative examinatio n - Primary documented in this encounter Care Teams Private Wealth Advisor Relationship Specialty Start Date End Date Eldon Conway MD PCP - General 07/24/01 02/15/18 [address] [place] [address] documented as of this encounter
--- OUTSIDE RECORDS SUMMARY | 2022-05-18 00:05 | XMS_ITS | Encounter Summary ---
:1955 Author Organization [facility] Address [address] [place] [address] Care Team Providers Name Role Phone Eldon Conway MD Primary Care Provider Encounter Details Date Type Department Care Team Description 02/02/2003 Orders Only [facility] MEDICAL EXAM [place] (Primary Dx) [address] [place] [address] Social History Tobacco Use Types [...] Impressions 02/02/2003 4:05 PM CDT BONE DENSITOMETRY [facility] February 02, 2003 PATIENT: ??Danielle Waldrop CHART: [id number] : ??1955 AGE: ??47 year old SEX: ??female REFERRING PHYSICIAN: ??Eldon Mayer, ?? PROCEDURE: ??Bone density scanning was p erformed using DEXA technology performed on a Filtr8 Scanner. ??Reporting is completed in the form of a T-score. ??The T-score represents the st andard deviation from peak bone mass based on a young healthy adult. Assistant Manager Of Operations performing scan: ??Janine Guzman ins REFERENCE T-SCORES: [...] performed to previous DEXA performed on a Litographs Scanner on 03/31/02 . CURRENT BMD: ??Lumbar [...] Primary documented in this encounter Care Teams Solutions Manager Relationship Specialty Start Date End Date Eldon Conway MD PCP - General 07/24/01 02/15/18 [address] [place] [address] documented as of this encounter
--- OUTSIDE RECORDS SUMMARY | 2022-05-18 00:05 | XMS_ITS | Encounter Summary ---
:1955 Author Organization [facility] Address [address] [place] [address] Care Team Providers Name Role Phone Eldon Conway MD Primary Care Provider Reason for Referral - Closed Specialty Diagnoses / Procedures Referred By Contact Refer red To Contact Diagnoses Acute sinusitis, unspecified Bhavin Pina MD [facility] Playviews SolveBoard [facility] [address] [place] [address] Referral ID Status Reason Start Date Expiration Date Visits Requ ested Visits Authorized [id number] Closed 06/30/2003 06/08/2011 1 1 FIC WAREHOUSE SUPERVISOR Reason for Visit Reason Comments Sinus Problem sinus tenderness, post nasal drip, cheeks feel warm, fatigue x 2months Encounter Details Date Type Department Care Team Description 06/30/2003 Office Visit [facility] Bhavin Pina S INUSITIS NOS Clinic Preston[place]anth Molina MD (Primary Dx) [address] [place], [place] [address] [place] [facility] [address] [address] [place] [address] Social History Tobacco Use Types Packs/Day Years Used Date Smoking Tobacco: Never Alcohol Use Standard Drinks/Week Comments No 0 (1 standard drink = 0.6 oz pure alcoho l) Sex Assigned at Date Recorded Not on file documented as of this encounter Last Filed Vital Signs Vital Sign Reading Time Taken Comments Blood Pressure 118/72 06/30/2003 2:00 PM TRAFFIC WAREHOUSE SUPERVISOR Pulse - - Temperature 36.8 ??C (98.3 ??F) 06/30/2003 2:00 PM TRAFFIC WAREHOUSE SUPERVISOR Respiratory Rate - - Oxygen Saturation - - Inhaled Oxygen Concentration - - Weight 59.9 kg (132 lb) 06/30/2003 2:00 PM TRAFFIC WAREHOUSE SUPERVISOR Height 159.4 cm (5' 2.75) 06/30/2003 2:00 PM TRAFFIC WAREHOUSE SUPERVISOR Body Mass Index 23.57 06/30/2003 2:00 PM TRAFFIC WAREHOUSE SUPERVISOR documented in this encounter Progress Notes 06/30/2003 2:00 PM TRAFFIC WAREHOUSE SUPERVISOR Danielle Waldrop, a 48 year old female [...] sinusit is, Results for this CONTRAST AM TRAFFIC WAREHOUSE SUPERVISOR unspecified procedure are i n the results section. documented in this encounter Results CONSULT OTOLARYNGOLOGY (10/19/2003) Narrative This result has an attachment that is no t available. Bhavin Pina MD REFERRAL CT SCAN FACE, JAW (07/05/2003 11:23 AM TRAFFIC WAREHOUSE SUPERVISOR) Anatomical Region Laterality Modality Other Specimen (Source) Anatomical Collection Method Collection Time Re ceived Time Location / / Volume Laterality 07/05/2003 11:23 AM TRAFFIC WAREHOUSE SUPERVISOR Impressions 07/08/2003 7:44 PM TRAFFIC WAREHOUSE SUPERVISOR CT SINUS SERIES - 07/05/2003 ?? CLINICAL [...] Primary documented in this encounter Care Teams Power Transformer Repairer Relationship Specialty Start Date End Date Eldon Conway MD PCP - General 07/24/01 02/15/18 [address] [place] [address] documented as of this encounter
--- OUTSIDE RECORDS SUMMARY | 2022-05-18 00:05 | XMS_ITS | Encounter Summary ---
:1955 Author Organization [facility] [place] Address [address] [place] [address] Care Team Providers Name Role Phone Eldon Conway MD Primary Care Provider Reason for Visit Reason Comments UTI ? UTI Encounter Details Date Type Department Care Team Description 05/27/2003 Office Visit [facility] Eldon Conway DYSURI A (Primary Dx) Clinic [place] [address] [place] [address] [phone] Social History Tobacco Use Types Packs/Day Years Used Date Smoking Tobacco: Never Alcohol Use Standard Drinks/Week Comments No 0 (1 standard drink = 0.6 oz pure alcoho l) Sex Assigned at Date Recorded Not on file documented as of this encounter Last Filed Vital Signs Vital Sign Reading Time Taken Comments Blood Pressure 120/70 05/27/2003 3:15 PM CHIEF METEOROLOGIST Pulse - - Temperature - - Respiratory Rate - - Oxygen Saturation - - Inhaled Oxygen Concentration - - Weight - - Height - - Body Mass Index - - documented in this encounter Progress Notes 05/27/2003 3:15 PM CHIEF METEOROLOGIST SUBJECTIVE: Danielle Waldrop is a 48 year [...] Primary documented in this encounter Care Teams Information Clerk [employer] Relationship Specialty Start Date End Date Eldon Conway MD PCP - General 07/24/01 02/15/18 [address] [place] [address] documented as of this encounter
--- OUTSIDE RECORDS SUMMARY | 2022-05-18 00:05 | XMS_ITS | Clinical Summary ---
:1955 Author Organization [facility] Address [address] [place] [address] Care Team Providers Name Role Phone Mariaelena [...] for each transition of care or referral. [facility] Allergies No known active allergies Medications Medication [...] ss Type Group BCBS BCBS OUT OF [id number] 2021-Present [address] [address] [place] [address] (Home) [place] [address] Danielle Waldrop Personal/Family Self [address] [place] [address] (Home) [place] [address] Care Teams Fingerprint Expert Relationship Specialty Start Date End Date Mariaelena Boland MD PCP - General Internal Medicine 09/21/18[address] [place] [address]
--- OUTSIDE RECORDS SUMMARY | 2022-05-18 00:05 | XMS_ITS | Encounter Summary ---
:1955 Author Organization [facility] Address [address] [place] [address] Care Team Providers Name Role Phone Eldon Conway MD Primary Care Provider Reason for Visit Reason Comments Erroneous encounter-disregard Encounter Details Date Type Department Care Team Description 08/18/2003 Orders Only [facility] Eldon Conway ERRONE S [facility] Cathy Wadsworth MD ENCOUNTER--DISREGARD [address] [facility] [id number] [place] [address] (Primary Dx) [place] [address] [phone] Social History Tobacco Use Types Packs/Day Years [...] Primary documented in this encounter Care Teams Drapery And Upholstery Measurer Relationship Specialty Start Date End Date Eldon Conway MD PCP - General 07/24/01 02/15/18 [address] [place], [place] [id number] documented as of this encounter
--- OUTSIDE RECORDS SUMMARY | 2022-05-18 00:05 | XMS_ITS | Encounter Summary ---
:1955 Author Organization [place] Address [address] [place] [address] Care Team Providers Name Role Phone Eldon Conway MD Primary Care Provider Reason for Visit Reason Comments Medication Request - Pt desires herpes med. Encounter Details Date Type Department Care Team Description 04/28/2003 Telephone [facility] Eldon Conway, Medica tion Request ( Clinic Cathy Wadsworth MD - Pt desires herpes [address] [place] [phone] [place] [address] med.) [place] [address] [phone] Social History Tobacco Use Types Packs/Day Years Used Date Smoking Tobacco: Never Alcohol Use Standard Drinks/Week Comments No 0 (1 standard drink = 0.6 oz pure alcoho l) Sex Assigned at Date Recorded Not on file documented as of this encounter Miscellaneous Notes Telephone Encounter - 04/28/2003 11:59 PM SYSTEMS SUPPORT OFFICER >> MEREDITH GOLDEN FriApr 29, 2003 10:17 AM Pt calling to check status of request from yesterday. Needs med JAMES as is in current outbreak. Meredith Golden RN >> MEREDITH GOLDEN Doris Apr 28, 2003 9:24 AM >> CALL RECEIVED. Contact: #[phone] Herpes outbreak. Currently at the beginning of an outbreak. Wondering if may have famvir/valtrex? Meredith Golden RN documented in this encounter Plan of Treatment Not on filedocumented as of this encounter Visit Diagnoses Not on filedocumented in this encounter Care Teams Animal Care Technician Relationship Specialty Start Date End Date Eldon Conway MD PCP - General 07/24/01 02/15/18 [address] [place] [address] documented as of this encounter
--- OUTSIDE RECORDS SUMMARY | 2022-05-18 00:05 | XMS_ITS | Encounter Summary ---
:1955 Author Organization [facility] Address [address] [place] [address]. [place] [address] Care Team Providers Name Role Phone Eldon Conway MD Primary Care Provider Reason for Visit Reason Comments RECHECK FOLLOW UP MEDICATIONS Encounter Details Date Type Department Care Team Description 10/15/2002 Office Visit [facility] JOANN Conway HYPER CHOLESTEROLEM Clinic [place] MD Eldon (Primary Dx) [address] [place] [address] [address] [address] [facility] [phone] [place] [id number] Social History Tobacco Use Types Packs/Day Years [...] athologist Signature Bilirubin 0.0 0.0 - 0.3 [facility] Conjugated mg/dL [facility] Bilirubin Delta 0.0 0.0 - 0.4 [facility] mg[facility]dL [facility] Bilirubin Total 0.4 0.2 - 1.3 [place] mg/dL [facility] Albumin 4.4 3.3 - 4.6 [place] g/dL [facility] Protein Total 7.3 6.0 - 8.2 [place] g/dL [facility] Alkaline 45 40 - 150 [facility] Phosphatase U/L [facility] ALT 32 0 - 50 U/L [facility] AST 21 0 - 45 U/L [facility] Specimen Anatomical Collection Method Collection Time Receive d Time (Source) Location / / Volume Laterality 10/15/2002 10:21 10/15/2002 AM CDT 10:26 AM CDT Eldon Conway MD LABORATORY Performing Organization Address City/[facility] Code Phon e Number [facility] [address] [place] [address] [facility] A.M.A. LIPID PANEL (10/15/2002 10:21 AM CDT) athologist Signature Cholesterol 156 <200 mg/dL [facility] Comment: Cholesterol Reference Range: <200 ??The NCEP recommends further ? evaluation of: ? 1. ??Patients with cholesterol ? greater than 200 mg/dL ? if additional risk facto rs ? are present. ? 2. ??All patients with a ? cholesterol greater than ? 240 mg/dL. Triglycerides 94 <150 mg/dL [facility] HDL Cholesterol 50 >40 mg/dL [facility] LDL Cholesterol Calculated 88 <130 mg/dL [facility] VLDL-Cholesterol 19 0 - 30 mg/dL [facility] Cholesterol/HDL Ratio 3 0 - 5 [facility] Specimen Anatomical Collection Method Collection Time Receive d Time (Source) Location / / Volume Laterality 10/15/2002 10:21 10/15/2002 AM CDT 10:26 AM CDT Eldon Conway MD LABORATORY Performing Organization Address City/[facility]/ZIP Code Phon e Number [facility] [address] [place] [address] [facility] documented in this encounter Visit Diagnoses Diagnosis Pure hypercholesterolemia - Primary documented in this encounter Care Teams Manager Location Relationship Specialty Start Date End Date Eldon Conway MD PCP - General 07/24/01 02/15/18 [address] [place] [address] documented as of this encounter
--- OUTSIDE RECORDS SUMMARY | 2022-05-18 00:05 | XMS_ITS | Encounter Summary ---
:1955 Author Organization [facility] Address [address] [place] [address] Care Team Providers Name Role Phone Eldon Conway MD Primary Care Provider Reason for Visit Reason Comments Sinus Problem sinus inf continued x 2 week s Encounter Details Date Type Department Care Team Description 03/15/2003 Office Visit [facility] Eldon Conway, ACUTE MAXILLARY SINUSITIS; Clinic [place] MD ACUTE SINUSITIS NOS [address] [facility] [address] [place] [address] [phone] Social History Tobacco Use Types Packs/Day Years [...] unspecified documented in this encounter Care Teams Echocardiologist Relationship Specialty Start Date End Date Eldon Conway MD PCP - General 07/24/01 02/15/18 [address] [place] [address] documented as of this encounter
--- OUTSIDE RECORDS SUMMARY | 2022-05-18 00:05 | XMS_ITS | Encounter Summary ---
:1955 Author Organization [place] Address [address] [place] [address] Care Team Providers Name Role Phone Eldon Conway MD Primary Care Provider Reason for Visit Reason Comments Refill Request Encounter Details Date Type Department Care Team Description 11/08/[address] [facility] Eldon Conway MD Refill Request [place] [address] [phone] Social History Tobacco Use Types Packs/Day Years [...] on filedocumented in this encounter Care Teams Radio Recorder Relationship Specialty Start Date End Date Eldon Conway MD PCP - General 07/24/01 02/15/18 [address] [place] [address] documented as of this encounter
--- OUTSIDE RECORDS SUMMARY | 2022-05-18 00:05 | XMS_ITS | Encounter Summary ---
:1955 Author Organization [facility] Address [address] [place] [address] Care Team Providers Name Role Phone Eldon Conway MD Primary Care Provider Mariaelena Boland Primary Care Provider Encounter Details Date Type Department Care Team Description 08/19/2003 [facility] Eldon Conway DIAGNO SIS NOT YET Clinic [place] MD DEFINED (Primary Dx) [address] [facility] [address] [place] [phone] [phone] Social History Tobacco Use Types Packs/Day Years [...] Primary documented in this encounter Care Teams Yard Specialist Relationship Specialty Start Date End Date Eldon Conway MD PCP - General 07/24/01 02/15/18 [address] [place] [address] Mariaelena Boland PCP - General Internal Medicine 02/16/[address] [address] (work) documented as of this encounter
--- OUTSIDE RECORDS SUMMARY | 2022-05-18 00:05 | XMS_ITS | Encounter Summary ---
:1955 Author Organization [place] Address [address] [place] [address] Care Team Providers Name Role Phone Eldon Schwartz MD Primary Care Provider Reason for Visit Reason Comments Eye Problem eyes get blood shot every da y Sinus Problem facial pain continuing UTI burning on urination Encounter Details Date Type Department Care Team Description 06/28/2003 Office Visit [facility] Eldon Schwartz URINAR Y SYS SYMPTOM Clinic [place] MD NEC (Primary Dx) [address] [id number] Social History Tobacco Use Types Packs/Day Years Used Date Smoking Tobacco: Never Alcohol Use Standard Drinks/Week Comments No 0 (1 standard drink = 0.6 oz pure alcoho l) Sex Assigned at Date Recorded Not on file documented as of this encounter Last Filed Vital Signs Vital Sign Reading Time Taken Comments Blood Pressure 110/60 06/28/2003 9:00 AM DUSTLESS OPERATOR Pulse - - Temperature - - Respiratory Rate - - Oxygen Saturation - - Inhaled Oxygen Concentration - - Weight - - Height - - Body Mass Index - - documented in this encounter Progress Notes 06/28/2003 9:00 AM DUSTLESS OPERATOR Addended by: ELDON SCHWARTZ on: 08/18/2003,10:51 [...] Urinary Sys Symptom Results for this POSITIVE DUSTLESS OPERATOR Nec procedure are i n the results section. documented in this encounter Results (ABNORMAL) UA MICRO IF POSITIVE (06/28/2003 9:10 AM DUSTLESS OPERATOR) [facility] Method Time Signature Color Urine Yellow [facility] Appearance Urine Clear [facility] Glucose Urine Negative NEG mg/dL [facility] Bilirubin Urine Negative NEG [facility] Ketones Urine Trace (A) NEG mg/dL [facility] Specific [place] 1.025 1.001 - [place] Urine [address] [facility] Blood Urine Negative NEG [facility] pH Urine 6.0 5.0 - 7.[address] [place] [address] [facility] Protein Albumin Negative NEG mg/dL [place] Urine [facility] Urobilinogen 0.2 0.2 - 1.0 [place] Urine EU/dL [facility] Nitrite Urine Negative NEG [facility] Leukocyte Negative NEG [place] Esterase Urine [facility] Source Midstream [place] Urine [facility] Specimen Anatomical Collection Method Collection Time Receive d Time (Source) Location / / Volume Laterality 06/28/2003 9:10 AM 9:16 DUSTLESS OPERATOR AM DUSTLESS OPERATOR Eldon Schwartz MD LABORATORY Performing Organization Address City/State/ZIP Code Phon e Number [facility] [id number] [place] [address] [facility] documented in this encounter Visit Diagnoses Diagnosis Urinary sys symptom NEC - Primary Other symptoms involving urinary system documented in this encounter Care Teams Rubber Compounder Supervisor Relationship Specialty Start Date End Date Eldon Schwartz MD PCP - General 07/24/01 02/15/18 [address] [place] [address] documented as of this encounter
--- OUTSIDE RECORDS SUMMARY | 2022-05-18 00:05 | XMS_ITS | Encounter Summary ---
:1955 Author Organization [place] Address [address] [place] [address] Care Team Providers Name Role Phone Eldon Conway MD Primary Care Provider Encounter Details Date Type Department Care Team Description 08/25/2003 Orders Only [facility] Eldon Conway, DIAGNO SIS NOT YET Clinic [place] MD DEFINED (Primary Dx) [address] [facility] [address] [place] [phone] Social History Tobacco Use Types Packs/Day Years [...] an attachment that is no t available. lEdon Conway MD LABORATORY Performing Organization Address City/State/ZIP Code Phon e Number [facility] documented in this encounter Visit Diagnoses Diagnosis DIAGNOSIS NOT YET DEFINED - Primary documented in this encounter Care Teams Dairy Grazer Relationship Specialty Start Date End Date Eldon Conway MD PCP - General 07/24/01 02/15/18 [address] [place], [place] [id number] documented as of this encounter
--- OUTSIDE RECORDS SUMMARY | 2022-05-18 00:05 | XMS_ITS | Encounter Summary ---
:1955 Author Organization [facility] Address [address], [place] [address] Care Team Providers Name Role Phone Mariaelena Boland MD Primary Care Provider Reason for Visit Reason Comments CONSULT Varicose veins Encounter Details Date Type Department Care Team Description 08/30/2021 Office Visit [facility] Marcos, Leg swe lling (Primary [place] [address] MD Dx) Vascular Surgery 6[address] [facility] [address] [place] [phone] Social History Tobacco Use Types Packs/Day Years [...] entirety. There is no evidence of incompetent fermenter operator veins at any level. There is evidence [...] entirety. There is no evidence of incompetent fermenter operator veins at any level. There is evidence [...] limb documented in this encounter Care Teams Warehouse Processor Relationship Specialty Start Date End Date Mariaelena Boland MD PCP - General Internal Medicine 09/21/18[address] [place] [address] documented as of this encounter
--- OUTSIDE RECORDS SUMMARY | 2022-05-18 00:05 | XMS_ITS | Encounter Summary ---
:1955 Author Organization [facility] Address [address] [place] [address] Care Team Providers Name Role Phone Eldon Conway MD Primary Care Provider Reason for Visit Reason Comments Refill Request Encounter Details Date Type Department Care Team Description 03/31/2003 Refill [facility] Eldon Conway MD Refill Request [place] [address] [phone] Social History Tobacco Use Types Packs/Day Years [...] Primary documented in this encounter Care Teams Business Coordinator Relationship Specialty Start Date End Date Eldon Conway MD PCP - General 07/24/01 02/15/18 [address] [place] [address] documented as of this encounter
--- OUTSIDE RECORDS SUMMARY | 2022-05-18 00:05 | XMS_ITS | Encounter Summary ---
:1955 Author Organization [facility] Address [address] [place] [address] Care Team Providers Name Role Phone Eldon Conway MD Primary Care Provider Reason for Visit Reason Comments Infection - Unresolved sx. Encounter Details Date Type Department Care Team Description 06/06/2003 Telephone [facility] Eldon Conway, Infect ion ( - Clinic [place] Unresolved sx.) [address] [place] [phone] Social History Tobacco Use Types Packs/Day Years Used Date Smoking Tobacco: Never Alcohol Use Standard Drinks/Week Comments No 0 (1 standard drink = 0.6 oz pure alcoho l) Sex Assigned at Date Recorded Not on file documented as of this encounter Miscellaneous Notes Telephone Encounter - 06/06/2003 11:59 PM FITTING ROOM SUPERVISOR >> MEREDITH BURGOS FriJun 06, 2003 11:43 AM >> CALL RECEIVED. Contact: #[phone] Tequin rx'd for sinus, UTI and blood shot eyes. Now done w/rx and sx remain. ??? suggestions. Different abx? Meredith Burgos RN documented in this encounter Plan of Treatment Not on filedocumented as of this encounter Visit Diagnoses Not on filedocumented in this encounter Care Teams Processor Grain Relationship Specialty Start Date End Date Eldon Conway MD PCP - General 07/24/01 02/15/[id number] [place] [address], [place] [address] documented as of this encounter
--- OUTSIDE RECORDS SUMMARY | 2022-05-18 00:05 | XMS_ITS | Encounter Summary ---
:1955 Author Organization [facility] Address [address] [place] [address] Care Team Providers Name Role Phone Eldon Conway MD Primary Care Provider Encounter Details Date Type Department Care Team Description 05/30/2003 Orders Only [facility] Eldon Conway, URIN T RACT INFECTION Clinic [place] NOS (Primary Dx) [address] [address] [phone] Social History Tobacco Use Types Packs/Day Years [...] Tract Infectio n Results for this POSITIVE INTERNATIONAL SPECIALIST Nos procedure are i n the results section. documented in this encounter Results UA MICRO IF POSITIVE (05/27/2003 4:00 PM INTERNATIONAL SPECIALIST) [facility] Method Time Signature Color Urine Yellow [facility] Appearance Urine Clear [facility] Glucose Urine Negative NEG mg/dL [facility] Bilirubin Urine Negative NEG [facility] Ketones Urine Negative NEG mg/dL [facility] Specific [place] 1.015 1.001 - [place] Urine 1.035 [facility] Blood Urine Negative NEG [facility] pH Urine 7.0 5.0 - 7.0 [place] pH [facility] Protein Albumin Negative NEG mg/dL [place] Urine [facility] Urobilinogen 0.2 0.2 - 1.0 [place] Urine EU/dL [facility] Nitrite Urine Negative NEG [facility] Leukocyte Negative NEG [place] Esterase Urine [facility] Source Midstream [place] Urine [facility] Specimen Anatomical Collection Method Collection Time Receive d Time (Source) Location / / Volume Laterality 05/27/2003 4:00 PM 3 4:05 INTERNATIONAL SPECIALIST PM INTERNATIONAL SPECIALIST Eldon Conway MD LABORATORY Performing Organization Address City/State/ZIP Code Phon e Number [facility] [address] [place] [address] [facility] documented in this encounter Visit Diagnoses Diagnosis Urinary tract infection, site not specif ied - Primary documented in this encounter Care Teams Elevator Repairer Helper Relationship Specialty Start Date End Date Eldon Conway MD PCP - General 07/24/01 02/15/18 [address] [place] [address] documented as of this encounter
--- OUTSIDE RECORDS SUMMARY | 2022-05-18 00:05 | XMS_ITS | Encounter Summary ---
:1955 Author Organization [facility] Address [address] [place] [address] Care Team Providers Name Role Phone Eldon Conway MD Primary Care Provider Reason for Visit Reason Comments Sinus Problem Rhinorrhea, sinus pressure, fatigue for 2 months. Denies fevers, body aches. Encounter Details Date Type Department Care Team Description 01/31/[address] [facility] Bhavin Pina S INUSITIS NOS; Clinic [place] MD Jesse RHINITIS DUE TO POLLEN [id number] [place] [address] [place] [address] [facility] [phone] [place] [address] Social History Tobacco Use Types [...] pollen documented in this encounter Care Teams Registered Nurse Supervisor Relationship Specialty Start Date End Date Eldon Conway MD PCP - General 07/24/01 02/15/18 [address] [place] [address] documented as of this encounter
--- OUTSIDE RECORDS SUMMARY | 2022-05-18 00:05 | XMS_ITS | Encounter Summary ---
:1955 Author Organization [facility] Address [address] [place] [address] Care Team Providers Name Role Phone Eldon Schwartz MD Primary Care Provider Reason for Visit Reason Comments Pre-Op Exam Encounter Details Date Type Department Care Team Description 12/26/[address] [facility] Eldon Schwartz, PREOP EXAM OTHER Clinic [place] MD SPECIFIED (Primary Dx) [address] [facility] [address] [place] [address] [phone] Social History Tobacco Use Types Packs/Day Years [...] . //Date of Surgery: 01/02/04 Surgeon: :[facility]urgical Facility:[facility] Fax number of Hospital/Surgical Facility: [phone] Type of Anesthesia Anticipate d: to be [...] athologist Signature Hemoglobin 14.1 11.7 - 15.7 [facility] g/dL [facility] Specimen Anatomical Collection Method Collection Time Receive d Time (Source) Location / / Volume Laterality 12/26/2003 10:28 12/26/2003 AM CDT 10:29 AM CDT Eldon Schwartz MD LABORATORY Performing Organization Address City/State/[facility] Code Phon e Number [facility] [address] [place] [address] [facility] documented in this encounter Visit Diagnoses Diagnosis Other specified pre-operative examinatio n - Primary documented in this encounter Care Teams Dish Person Relationship Specialty Start Date End Date Eldon Schwartz MD PCP - General 07/24/01 02/15/18 [address] [place] [address] documented as of this encounter
--- OUTSIDE RECORDS SUMMARY | 2022-05-18 00:05 | XMS_ITS | Encounter Summary ---
:1955 Author Organization [facility] Address [address] [place] [address] Care Team Providers Name Role Phone Eldon Schwartz MD Primary Care Provider Reason for Referral - Closed Specialty Diagnoses / Procedures Referred By Contact Refer red To Contact Diagnoses Hypo[place] [address] [address], [place] [address] Referral ID Status Reason Start Date Expiration Date Visits Requ ested Visits Authorized [id number] Closed 01/18/2003 06/08/2011 1 1 Reason for Visit Reason Comments Physical Encounter Details Date Type Department Care Team Description 01/18/2003 Office Visit [facility] Eldon Schwartz ROUTIN E MEDICAL EXAM (Primary Dx); Clinic Cathy Wadsworth MD ACUTE NASOPHARYNGITIS; [address] [place] [id number] [place] [address] INHIBITED S[place] [address] [phone] Social History Tobacco Use Types Packs/Day Years [...] Number of children: Social History Main To [facility] Tobacco Use: Never Alcohol Use: No Drug [...] CDT) athologist Signature Cholesterol 164 <200 mg/dL [facility] Comment: Cholesterol Reference Range: <200 ??The NCEP recommends further ? evaluation of: ? 1. ??Patients with cholesterol ? greater than 200 mg/dL ? if additional risk facto rs ? are present. ? 2. ??All patients with a ? cholesterol greater than ? 240 mg/dL. Triglycerides 48 <150 mg/dL [facility] HDL Cholesterol 63 >40 mg/dL [facility] LDL Cholesterol Calculated 92 <130 mg/dL [facility] VLDL-Cholesterol 10 0 - 30 mg/dL [facility] Cholesterol/HDL Ratio 3 0 - 5 [facility] Specimen Anatomical Collection Method Collection Time Receive d Time (Source) Location / / Volume Laterality 01/18/2003 10:44 01/18/2003 AM CDT 10:45 AM CDT Eldon Schwartz MD LABORATORY Performing Organization Address City/State/ZIP Code Phon e Number [facility] [address] [place] [address] [facility] CBC WITH PLATELETS (01/18/2003 10:44 AM CDT) athologist Signature WBC 5.8 4.0 - 11.0 [place] 10e9/L [facility] RBC Count 4.43 3.8 - 5.2 [place] 10e12/L [facility] Hemoglobin 14.3 11.7 - [facility] 15.7 g/dL [facility] Hematocrit 42.1 35.0 - [facility] 47.[facility] % [facility] MCV 95 78 - 100 [facility] fl [facility] MCH 32.3 26.5 - [facility] 33.0 pg [facility] MCHC 34.0 32.0 - [facility] 36.0 g/dL [facility] RDW 12.5 10.0 - [facility] 15.0 % [facility] Platelet Count 252 150 - 450 [facility] 10e9/L [facility] Specimen Anatomical Collection Method Collection Time Receive d Time (Source) Location / / Volume Laterality 01/18/2003 10:44 01/18/2003 AM CDT 10:45 AM CDT Eldon Schwartz MD LABORATORY Performing Organization Address City/[facility]/ZIP Code Phon e Number [address] [address] [facility] TSH W/FREE T4 REFLEX (01/18/2003 10:44 AM CDT) P athologist Signature TSH 0.60 0.4 - 5.0 [facility] mU/L [facility] Specimen Anatomical Collection Method Collection Time Receive d Time (Source) Location / / Volume Laterality 01/18/2003 10:44 01/18/2003 AM CDT 10:45 AM CDT Eldon Schwartz MD LABORATORY Performing Organization Address City/[facility]/ZIP Code Phon e Number [address] [address] [facility] UA MICRO IF POSITIVE (01/18/2003 10:44 AM CDT) Patholo gist Method Time Signature Color Urine Yellow [facility] Appearance Urine Clear [facility] Glucose Urine Negative NEG mg/dL [facility] Bilirubin Urine Negative NEG [facility] Ketones Urine Negative NEG mg/dL [facility] Specific [place] 1.020 1.001 - [place] Urine 1.035 [facility] Blood Urine Negative NEG [facility] pH Urine 6.5 5.0 - 7.0 [place] pH [facility] Protein Albumin Negative NEG mg/dL [place] [place] Urine [facility] Urobilinogen 0.2 0.2 - 1.0 [place] Urine EU/dL [facility] Nitrite Urine Negative NEG [facility] Leukocyte Negative NEG [facility] Esterase Urine [facility] Source Midstream [place] Urine [facility] Specimen Anatomical Collection Method Collection Time Receive d Time (Source) Location / / Volume Laterality 01/18/2003 10:44 01/18/2003 AM CDT 10:45 AM CDT Eldon Schwartz MD LABORATORY Performing Organization Address City/State/ZIP Code Phon e Number [facility] [address] [place] [address] [facility] A.M.A. COMPREHENSIVE MET.PANEL (01/18/2003 10:44 AM CDT) P athologist Signature Sodium 143 133 - 144 [facility] mmol/L [facility] Potassium 4.7 3.4 - 5.3 [facility] mmol/L [facility] Chloride 105 94 - 109 [place] mmol/L [facility] Carbon Dioxide 28 20 - 32 [place] mmol/L [facility] Anion Gap 10 6 - 17 [place] mmol/L [facility] Glucose 88 60 - 115 [place] mg/dL [facility] Urea Nitrogen 14 5 - 24 [facility] mg/dL [facility] Creatinine 0.8 0.6 - 1.3 [facility] mg/dL [facility] Calcium 9.1 8.5 - 10.4 [place] mg/dL [facility] Bilirubin Total 0.5 0.2 - 1.3 [place] mg/dL [facility] Albumin 4.2 3.3 - 4.6 [place] g/dL [facility] Protein Total 7.5 6.0 - 8.2 [place] g/dL [facility] Alkaline 51 40 - 150 [place] Phosphatase U/L [facility] ALT 22 0 - 50 U/L [facility] AST 23 0 - 45 U/L [facility] Specimen Anatomical Collection Method Collection Time Receive d Time (Source) Location / / Volume Laterality 01/18/2003 10:44 01/18/2003 AM CDT 10:45 AM CDT Eldon Schwartz MD LABORATORY Performing Organization Address City/[facility] Code Phon e Number [address] [address] [facility] LAB A THIN LAYER PAP SCREEN (01/18/2003 12:00 AM CDT) Component Value Ref Test Analysis Performed At [facility] Range Method Time Signature Copath Report Patient Name: DANIELLE WALDROP MR#: [id number] Specimen #: [id number] Collected: 01/18/03 Received: 01/21/03 Reported: 01/24/03 11:45 Ordering Phy(s): ELDON SCHWARTZ SPECIMEN/STAIN PROCESS: Pap thin layer prep screening ? Pap-Cyto x 1, Reflex HPV x 1 SOURCE: Vaginal ---- Pap thin layer prep screening SPECIMEN ADEQUACY: Satisfactory for evaluation. -Transitional zone component absent. CYTOLOGIC INTERPRETATION: Negative for Intraepithelial Lesion or Malignancy Electronically signed out by: CHEKO Huang (ASCP) Processed and screened at [facility] CLINICAL HISTORY: Partial Hysterectomy, Previous normal pap: 12/07/01, Specimen (Source) Anatomical Collection Method Collection Time Re ceived Time Location / / Volume Laterality 01/18/2003 01/21/2003 12:0 7 PM CDT Eldon Schwartz MD LABORATORY Performing Organization Address City/[facility]/ZIP Code Phon e Number [facility] documented in this encounter Visit Diagnoses Diagnosis Routine general medical examination at a health care facility - Primary Acute nasopharyngitis (common cold) Hypoactive sexual desire disorder documented in this encounter Care Teams Bedspring Assembler Relationship Specialty Start Date End Date Eldon Schwartz MD PCP - General 07/24/01 02/15/18 [address] [place] [address] documented as of this encounter
--- OUTSIDE RECORDS SUMMARY | 2022-05-18 00:05 | XMS_ITS | Encounter Summary ---
:1955 Author Organization [facility] Address [address] [place] [address] Care Team Providers Name Role Phone Eldon Schwartz MD Primary Care Provider Reason for Visit Reason Comments Patient Inquiry sx's not better Encounter Details Date Type Department Care Team Description 06/15/2003 Telephone [facility] Eldon Schwartz Patien t Inquiry (sx's Clinic [facility] not better) [address] [place] [phone] Social History Tobacco Use Types Packs/Day Years Used Date Smoking Tobacco: Never Alcohol Use Standard Drinks/Week Comments No 0 (1 standard drink = 0.6 oz pure alcoho l) Sex Assigned at Date Recorded Not on file documented as of this encounter Miscellaneous Notes Telephone Encounter - 06/15/2003 11:59 PM GAS ATTENDANT >> ELDON SCHWARTZ [facility] Jun 16, 2003 5:56 PM HAVE TRY PREDNISONE 20 MG FOR 7 DAYS. >> ALBARO Farmer Jun 15, 2003 4:30 PM >> CALL RECEIVED. Contact: Akil#[phone] [place] message Was on tequin initally, then [...] on filedocumented in this encounter Care Teams Liturgical Music Director Relationship Specialty Start Date End Date Eldon Schwartz MD PCP - General 07/24/01 02/15/18 [address] [place] [address] documented as of this encounter
--- OUTSIDE RECORDS SUMMARY | 2022-05-18 00:05 | XMS_ITS | Encounter Summary ---
:1955 Author Organization [facility] Address [address] [place] [address] Care Team Providers Name Role Phone Eldon Conway MD Primary Care Provider Encounter Details Date Type Department Care Team Description 08/19/2003 Office Visit [facility] Eldon Conway ERRONE [facility] Cathy Wadsworth MD ENCOUNTER--DISREGARD [address] [facility] [id number] [place] [address] (Primary Dx) [place] [address] [phone] Social History Tobacco Use Types Packs/Day Years Used Date Smoking Tobacco: Never Alcohol Use Standard Drinks/Week Comments No 0 (1 standard drink = 0.6 oz pure alcoho l) Sex Assigned at Date Recorded Not on file documented as of this encounter Progress Notes 08/19/2003 3:30 PM APPLICATION PACKAGER This encounter was opened in error. Please disregard. documented in this encounter Plan of Treatment Not on filedocumented as of this encounter Visit Diagnoses Diagnosis ERRONEOUS ENCOUNTER--DISREGARD - Primary documented in this encounter Care Teams Food Products Tester Relationship Specialty Start Date End Date Eldon Conway MD PCP - General 07/24/01 02/15/18 [address] [address] [place], [place] [id number] documented as of this encounter
--- OUTSIDE RECORDS SUMMARY | 2022-05-18 00:05 | XMS_ITS | Encounter Summary ---
:1955 Author Organization [facility] Address [address] [place] [address] Care Team Providers Name Role Phone Eldon Schwartz MD Primary Care Provider Reason for Visit Reason Comments Refill Request Encounter Details Date Type Department Care Team Description 11/05/2002 Telephone [facility] Eldon Schwartz MD Refill Request [place] [address] [phone] Social History Tobacco Use Types Packs/Day Years [...] clafification. please clarify and call arianna saeed [phone] Katharine Del Valle LPN documented in this encounter Plan of Treatment Not on filedocumented as of this encounter Visit Diagnoses Not on filedocumented in this encounter Care Teams Day Care Provider Relationship Specialty Start Date End Date Eldon Schwartz MD PCP - General 07/24/01 02/15/18 [address] [place] [address] documented as of this encounter
--- OUTSIDE RECORDS SUMMARY | 2022-05-18 00:05 | XMS_ITS | Encounter Summary ---
:1955 Author Organization [facility] Address [address], [place] [address] Care Team Providers Name Role Phone Mariaelena Boland MD Primary Care Provider Reason for Visit Procedure/Equipment (Routine) - Incomplete Specialty Diagnoses / Procedures Referred By Contact Refer red To Contact Diagnoses Varicose veins of both lower extremities with complications Charisma Lucas, Procedures VL US Lower Extremity Bilat Venous Reflux CAN STRIPER, BLENDING TECHNICIAN [address] [place], [place] [address] Referral ID Status Reason Start Date Expiration Date Visits V isits Requested Authorized [id number] Incomplete 08/29/2021 11/28/2022 1 1 Encounter Details Date Type Department Care Team Description 08/30/2021 [facility] Charisma Silveira Varicose veins of Procedure [place] [address] C, CAN STRIPER, BLENDING TECHNICIAN both lower Vascular Lab [address] extremities with [address] [place] [phone] Social History Tobacco Use Types Packs/Day Years [...] competent and free of thrombus. Charisma Lucas CAN STRIPER, BLENDING TECHNICIAN RAD VASCULAR US documented in this encounter Visit Diagnoses Diagnosis Varicose veins of both lower extremities with complications documented in this encounter Care Teams Project Engineering Manager Relationship Specialty Start Date End Date Mariaelena Boland MD PCP - General Internal Medicine 09/21/18[address] [place] [address] documented as of this encounter
--- OUTSIDE RECORDS SUMMARY | 2022-05-18 00:05 | XMS_ITS | Encounter Summary ---
:1955 Author Organization [place] Address [address] [place] [address]. [place] [address] Care Team Providers Name Role Phone Eldon Conway MD Primary Care Provider Reason for Visit Reason Onset Date Comments Medication Request 12/29/2003 - Desires abx Encounter Details Date Type Department Care Team Description 12/29/2003 Telephone [facility] Eldon Conway, Medica tion Request (- Clinic [facility] MD Desires abx) [address] [place] [phone] Social History Tobacco Use Types Packs/Day Years [...] on filedocumented in this encounter Care Teams Canvas Baster Jumpbasting Relationship Specialty Start Date End Date Eldon Conway MD PCP - General 07/24/01 02/15/18 [address] [place] [address] documented as of this encounter
--- OUTSIDE RECORDS SUMMARY | 2022-05-18 00:05 | XMS_ITS | Encounter Summary ---
:1955 Author Organization [facility] Address [address] [place] [address] Care Team Providers Name Role Phone Eldon Conway MD Primary Care Provider Reason for Visit Reason Comments URI Encounter Details Date Type Department Care Team Description 08/08/2003 Office Visit [facility] Eldon Conway, COUGH (Primary Dx) Cathy Wadsworth MD [address] [place] [address] [phone] Social History Tobacco Use Types Packs/Day Years Used Date Smoking Tobacco: Never Alcohol Use Standard Drinks/Week Comments No 0 (1 standard drink = 0.6 oz pure alcoho l) Sex Assigned at Date Recorded Not on file documented as of this encounter Last Filed Vital Signs Vital Sign Reading Time Taken Comments Blood Pressure 120/74 08/08/2003 3:30 PM ROTARY HELPER Pulse - - Temperature 36.6 ??C (97.9 ??F) 08/08/2003 3:30 PM ROTARY HELPER Respiratory Rate - - Oxygen Saturation - - Inhaled Oxygen Concentration - - Weight 60.8 kg (134 lb) 08/08/2003 3:30 PM ROTARY HELPER Height - - Body Mass Index 23.93 06/30/2003 2:00 PM ROTARY HELPER documented in this encounter Progress Notes 08/08/2003 3:30 PM ROTARY HELPER SUBJECTIVE: Danielle Waldrop is a 48 year [...] Notes 08/08/2003 3:30 PM CST >> RADHA KEEYS 08/08/2003 3:40 pm BP cuff size: regular, pt. comes into the clinic with s&s of sinus drainage, and she said voice feels strained. She's had these s&s for 3 months and she's having surgery on 08-24-03. Radha eKyes RN. documented in this encounter Plan of Treatment Not on filedocumented as of this encounter Visit Diagnoses Diagnosis Cough - Primary documented in this encounter Care Teams Sap Solutions Architect Relationship Specialty Start Date End Date Eldon Conway MD PCP - General 07/24/01 02/15/18 [address] [place] [address] documented as of this encounter
--- OUTSIDE RECORDS SUMMARY | 2022-05-18 00:05 | XMS_ITS | Encounter Summary ---
:1955 Author Organization [place] Address [address] [place] [address] Care Team Providers Name Role Phone Eldon Conway MD Primary Care Provider Encounter Details Date Type Department Care Team Description 09/29/2002 Abstract [facility] [id number] [place] [address] [phone] Social History Tobacco Use Types [...] on filedocumented in this encounter Care Teams Weaver Dobby Loom Relationship Specialty Start Date End Date Eldon Conway MD PCP - General 07/24/01 02/15/[id number] [place] [address] documented as of this encounter
--- OUTSIDE RECORDS SUMMARY | 2022-05-18 00:05 | XMS_ITS | Encounter Summary ---
:1955 Author Organization [place] Address [address] [place] [address] Care Team Providers Name Role Phone Eldon Conway MD Primary Care Provider Encounter Details Date Type Department Care Team Description 08/25/2003 Emergency room Oseas Logan [place] [address] Social History Tobacco Use Types Packs/Day Years Used Date Smoking Tobacco: Never Alcohol Use Standard Drinks/Week Comments No 0 (1 standard drink = 0.6 oz pure alcoho l) Sex Assigned at Date Recorded Not on file documented as of this encounter ED Notes Desmond Oseas Jacob - 08/25/2003 12:00 AM WEAVER APPRENTICE : 1955 ATTENDING PHYSICIAN: Eldon Conway M.D. CHIEF COMPLAINT: Difficulty with starting urinary stream. HISTORY OF PRESENT ILLNESS: This 48-year-old female underwent a same day surgical procedure on her left shoulder for impingement syndrome due to a Workman's Comp injury, with the patient stating that she did receive a general anesthetic. The procedure was performed at [facility]. Today she has the development of [...] symptoms. [id number]_ OSEAS LOGAN MD MT: Document: [id number] [place], [place] Name: WALDROP DANIELLE L EMERGENCY ROOM ENCOUNTER Page 2 of 2 LCN: CELSO DSC: 08/25/2003 [place], [place] Name: MR#: : Admit Date: CEZARNANDINIDANIELLE Taurus 0519[birth year]02-31-10 1955 08/25/2003 Doctor: OSEAS LOGAN MD EMERGENCY ROOM ENCOUNTER Page 1 of 2 documented in this encounter Plan of Treatment Not on filedocumented as of this encounter Visit Diagnoses Not on filedocumented in this encounter Care Teams Theology Professor Relationship Specialty Start Date End Date Eldon Conway MD PCP - General 07/24/01 02/15/18 [address] [place] [address] documented as of this encounter
[2022-05-18 00:06] VITALS: BP 125/78; PULSE 85; RESP 16; TEMP 36.8; O2SAT 99
--- OUTSIDE RECORDS SUMMARY | 2022-05-18 00:06 | XMS_ITS | Encounter Summary ---
:1955 Author Organization [facility] Address [address], [place] [address] Care Team Providers Name Role Phone Unassigned, Provider Primary Care Provider Unavailable Encounter Details Date Type Department Care Team Description 12/02/2008 Office Visit [facility] [place] [address] [facility] [address] [place] [address] [place], [place] [id number] Social History Tobacco Use Types Packs/Day Years [...] 1427 Note Time: 12/02/08 0001 Status: Signed Construction Cost Estimator: Trav Ahmadi MD (Physician) NAME: DANIELLE ROBB MR#: [id number] ACCT: [id number] VISIT: [id number] DICTATING CLINICIAN: Trav Ahmadi MD CONFIRM #: [id number] LOC: 520 CLINIC PROGRESS NOTE DATE OF [...] Her medical care is elsewhere, at the [facility]. NECK: Negative. CHEST AND LUNGS: Clear. [...] urine. ASSESSMENT: Acute appendicitis. PLAN: Refer to [facility] ER; physician notified. CT report called by MARIA ELENA LE:[id number] C: 12/03/08 10:39 CONFIRM #: [id number] documented in this encounter Plan of Treatment [...] PM CDT : ??Findings consistent with appendicitis. [id number]/loyola Dictating OSEAS TSAI RADIOLOGIST Narrative 12/02/2008 9:20 [...] normal. IMPRESSION : Findings consistent with appendicitis. [id number]/nir Dictating OSEAS TSAI RADIOLOGIST Trav Ahmadi MD RAD CT CT Pelvis W IV Cont (12/02/2008 9:20 PM CDT) Anatomical Region Laterality Modality Pelvis, Abdomen Other Specimen (Source) Anatomical Location Collection Method / Collectio n Time Received Time / Laterality Volume Impressions 12/02/2008 9:20 PM CDT : ??Findings consistent with appendicitis. [id number]/nir Dictating OSEAS TSAI RADIOLOGIST Narrative 12/02/2008 9:20 [...] normal. IMPRESSION : Findings consistent with appendicitis. [id number]/nir Dictating OSEAS TSAI RADIOLOGIST Trav Ahmadi MD RAD CT documented in this encounter Visit Diagnoses Not on filedocumented in this encounter Care Teams Research Nurse Relationship Specialty Start Date End Date Unassigned, Provider PCP - General 02/23/01 09/20/[address] [place] [address] documented as of this encounter
--- OUTSIDE RECORDS SUMMARY | 2022-05-18 00:06 | XMS_ITS | Encounter Summary ---
:1955 Author Organization [facility] Address [address], [place] [address] Care Team Providers Name Role Phone Unassigned, Provider Primary Care Provider Unavailable Encounter Details Date Type Department Care Team Description 12/02/2008 PN Conversion Only [place] [address] [facility] [address] [place] [address] [place] [address] Social History Tobacco Use Types Packs/Day Years [...] Complete Blood Count-W/Diff (12/02/2008 7:54 PM CDT) [facility] Method Time Signature White Blood [...] - HP CONVERSION Hemoglobin Conc 36.5 gm/dL [place] RDW 12.5 11.0 - HP CONVERSION 15.0 [...] Trav Ahmadi MD LAB_1 Performing Organization Address City/[facility] Code Phon e Number HP CONVERSION (ABNORMAL) Urinalysis Routine(Micro If Pos) (12/02/2008 7:54 PM CDT) [facility] [employer] Method Time Signature Turbidity Clear No normal [...] Specific 1.025 1.005 - 25 HP CONVERSION [place] Specimen (Source) Anatomical Collection Method Collection Time Re ceived Time Location / / Volume Laterality 12/02/2008 7:54 PM CDT Trav Ahmadi MD LAB_1 Performing Organization Address City/[facility]/ZIP Code Phon e Number HP CONVERSION (ABNORMAL) Urinalysis Microscopic (12/02/2008 7:54 PM CDT) [facility] [employer] Method Time Signature White Blood 5-9/HPF (A) [...] on filedocumented in this encounter Care Teams Quality Rn Relationship Specialty Start Date End Date Unassigned, Provider PCP - General 02/23/01 09/20/[address] [place] [address] documented as of this encounter
--- OUTSIDE RECORDS SUMMARY | 2022-05-18 00:06 | XMS_ITS | Encounter Summary ---
:1955 Author Organization [facility] Address [address] [place] [address] Care Team Providers Name Role Phone Unassigned, Provider Primary Care Provider Unavailable Encounter Details Date Type Department Care Team Description 12/02/2008 PN Conversion Only [place] [address] [address] [place] [address] Social History Tobacco Use Types Packs/Day Years Used Date Smoking Tobacco: Never Assessed Sex Assigned at Date Recorded Not on file documented as of this encounter Plan of Treatment Not on filedocumented as of this encounter Visit Diagnoses Not on filedocumented in this encounter Care Teams Special Assets Officer Relationship Specialty Start Date End Date Unassigned, Provider PCP - General 02/23/01 09/20/18 [address] [place] [address] documented as of this encounter
--- OUTSIDE RECORDS SUMMARY | 2022-05-18 00:06 | XMS_ITS | Encounter Summary ---
:1955 Author Organization [facility] Address [address], [place] [address] Care Team Providers Name Role Phone Mariaelena Boland MD Primary Care Provider Reason for Referral Procedure/Equipment (Routine) - Incomplete Specialty Diagnoses / Procedures Referred By Contact Refer red To Contact Diagnoses Bilateral leg edema Charisma Lucas, BUSINESS OPERATIONS CONSULTANT, Procedures Compression stocking thigh length 20-30 mmHg ([id number]) HELMET HAT PUNCHER [address] [place], [place] [address] Referral ID Status Reason Start Date Expiration Date Visits V isits Requested Authorized [id number] Incomplete 08/29/2021 11/28/2022 1 1 Procedure/Equipment (Routine) - Incomplete Specialty Diagnoses / Procedures Referred By Contact Refer red To Contact Diagnoses Varicose veins of both lower extremities with complications Charisma Lucas, Procedures VL US Lower Extremity Bilat Venous Reflux RANJAN GONZÁLES [address] [place], [place] [address] Referral ID Status Reason Start Date Expiration Date Visits V isits Requested Authorized [id number] Incomplete 08/29/2021 11/28/2022 1 1 Reason for Visit Reason Comments CONSULT Ankle swelling/pain Encounter Details Date Type Department Care Team Description 08/29/2021 Initial Consult Heart & Vascular Charisma Lucas veins of both lower extremities with complications (Primary Dx); [facility] & CELIECER, RANJAN Bilateral leg edema; [facility] [address] [place], [place], [address] [place] [address] [phone] Social History Tobacco Use Types Packs/Day Years [...] a pleasant 66 y.o. female. Lives in [place], [place]. Past medical history includes: no significant [...] of both lower extremities with complications I83.893 [facility] Lower Extremity Bilat Venous Reflux 2. [...] Vascular Surgery 4:27 PM 08/29/2021 Pager # [phone] This dictation was done using voice recognition [...] competent and free of thrombus. Charisma Lucas BUSINESS OPERATIONS CONSULTANT, HELMET HAT PUNCHER RAD VASCULAR US documented in this encounter Visit Diagnoses Diagnosis Varicose veins of both lower extremities with complications - Primary Bilateral leg edema Edema Spider veins Nevus, non-neoplastic Varicose veins of both lower extremities with complications documented in this encounter Care Teams Design Leader Relationship Specialty Start Date End Date Mariaelena Boland MD PCP - General Internal Medicine 09/21/181999 [place] [address] documented as of this encounter
--- OUTSIDE RECORDS SUMMARY | 2022-05-18 00:06 | XMS_ITS | Encounter Summary ---
:1955 Author Organization [facility] Address [address], [place] [address] Care Team Providers Name Role Phone Unassigned, Provider Primary Care Provider Unavailable Encounter Details Date Type Department Care Team Description 01/31/1998 PN Conversion Only Jack Pillai Obstetric[place] [address] [facility] [address] [place] [address] [place], [place] [id number] (Wo rk) Social History Tobacco Use Types [...] 0601 Note Time: 01/31/98 0001 Status: Signed Pick Up Attendant: Jack Malin MD (Physician) IMPRESSION: Recent diagnosis [...] a prn basis for problems. stq RESOURCE: [facility] Aron Berger MD - 01/17/1998 12:01 AM CDT Progress Notes signed by Aron Barros MD at 01/31/98 1129 Author: Aron Barros MD Service: (none) Author Type: Physician Filed: 09/26/10 0549 Note Time: 01/17/98 0001 Status: Signed Pick Up Attendant: Aron Barros MD (Physician) IMPRESSION: Probable genital [...] 09/26/10 0516 Note Time: 12/12/972255 Status: Signed Pick Up Attendant: Aron Vanegas MD (Physician) IMPRESSION: No dictation required. SUBJECTIVE: N/A OBJECTIVE: N/A ASSESSMENT: N/A PLAN: N/A rem [facility] Aron Vanegas MD - 11/14/1997 12:01 AM CDT Progress Notes signed by Aron Vanegas MD at 04/17/022255 Author: Aron Vanegas MD Service: (none) Author Type: Physician Filed: 09/26/10 0452 Note Time: 11/14/972255 Status: Signed Pick Up Attendant: Aron Vanegas MD (Physician) IMPRESSION: No dictation required. SUBJECTIVE: N/A OBJECTIVE: N/A ASSESSMENT: N/A PLAN: N/A rem Aron Levi MD - 10/17/1997 12:01 AM CDT Progress Notes signed by Aron Vanegas MD at 04/17/022255 Author: Aron Vanegas MD Service: (none) Author Type: Physician Filed: 09/26/10425 Note Time: 10/17/972255 Status: Signed Pick Up Attendant: Aron Vanegas MD (Physician) IMPRESSION: No dictation required. SUBJECTIVE: N/A OBJECTIVE: N/A ASSESSMENT: N/A PLAN: N/A rem Aron Levi MD - 10/03/1997 12:01 AM CDT Progress Notes signed by Aron Vanegas MD at 04/17/022255 Author: Aron Vanegas MD Service: (none) Author Type: Physician Filed: 09/26/10 0413 Note Time: 10/03/97 0001 Status: Signed Pick Up Attendant: Aron Vanegas MD (Physician) IMPRESSION: No dictation required. SUBJECTIVE: N/A OBJECTIVE: N/A ASSESSMENT: N/A PLAN: N/A rem Aron Levi MD - 09/19/1997 12:01 AM CDT Progress Notes signed by Aron Vanegas MD at 04/17/022255 Author: Aron Vanegas MD Service: (none) Author Type: Physician Filed: 09/26/10 0400 Note Time: 09/19/97 0001 Status: Signed Pick Up Attendant: Aron Vanegas MD (Physician) IMPRESSION: No dictation required. SUBJECTIVE: N/A OBJECTIVE: N/A ASSESSMENT: N/A PLAN: N/A kjp Aron Levi MD - 09/12/1997 12:01 AM CDT Progress Notes signed by Aron Vanegas MD at 04/17/02 2256 Author: Aron Vanegas MD Service: (none) Author Type: Physician Filed: 09/26/10 0354 Note Time: 09/12/97 0001 Status: Signed Pick Up Attendant: Aron Vanegas MD (Physician) IMPRESSION: No dictation required. SUBJECTIVE: N/A OBJECTIVE: N/A ASSESSMENT: N/A PLAN: N/A rem Trav Larios - 08/31/1997 12:01 AM CST Progress Notes signed by Trav Proctor MD at 09/06/97 1312 Author: Trav Proctor MD Service: (none) Author Type: Physician Filed: 09/26/10 0345 Note Time: 08/31/97 0001 Status: Signed Pick Up Attendant: Trav Proctor MD (Physician) IMPRESSION: Preop exam. [...] 0342 Note Time: 08/29/97 0001 Status: Signed Pick Up Attendant: Aron Vanegas MD (Physician) IMPRESSION: Pelvic descensus. SUBJECTIVE: Danielle Pratt is a 42-year-old female who returns for further discussion regarding planning her vaginal hysterectomy and anterior and posterior repair. This is scheduled as an AM admit patient at [facility] for September 05. Dr. Cristina Davidson will assist me. OBJECTIVE: N/A ASSESSMENT: N/A PLAN: The plan will be to do this under general anesthesia in the lithotomy position, preserving both ovaries. Again, I have discussed in great detail with the patient the indications, nature, and relative risks of planned procedure. 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 OBJECTIVE: Examination reveals a healthy-appearing thin female [...] possible with Surgery. cc: Cristina Davidson MD [facility] OR ENERGY TRADER Trav Proctor - 08/17/1997 12:01 AM CST Progress Notes signed by Trav Proctor MD at 08/26/97 1114 Author: Trav Proctor MD Service: (none) Author Type: Physician Filed: 09/26/10 0332 Note Time: 08/17/97 0001 Status: Signed Pick Up Attendant: Trav Proctor MD (Physician) IMPRESSION: 1. Essentially [...] a fasting. Should get mammogram scheduled. johan OR ENERGY TRADER Conversion, [facility] - 08/01/1997 12:01 AM CST Progress Notes signed by at 03/27/98 6363 Author: [facility] Conversion Service: (none) Author Type: (none) Filed: 09/26/10 0317 Note Time: 08/01/97 0001 Status: Signed Pick Up Attendant: Jeremy Conversion IMPRESSION: Mild pelvic relaxation, asymptomatic. [...] outlined. sls SCHEDULED RESOURCE: CRISTINA DAVIDSON MD OR ENERGY TRADER Swati Loja MD - 07/18/1997 12:01 AM CST Progress Notes signed by GUERO Obrien at 08/17/97 1648 Author: GUERO Obrien Service: (none) Author Type: Physician Filed: 09/26/10 0303 Note Time: 07/18/97 0001 Status: Signed Pick Up Attendant: GUERO Obrien (Physician) IMPRESSION: Possible cystocele and [...] an opinion regarding this. PLAN: N/A. kjp OR ENERGY TRADER documented in this encounter Plan of Treatment [...] Routine 01/17/1998 11:45 Results fo r this [facility] CDT procedure ar e in the results section. MM MAMMOGRAM Routine 10/20/1997 1:00 PM Results f or this SCREENING W CAD CDT procedure ar e in the results section. HEMOGLOBIN, BLOOD Routine 08/31/1997 1:19 PM Resu lts for this SENIOR ENERGY TRADER procedure are i n the results section. GLUCOSE Routine 08/23/1997 7:40 AM Results f or this SENIOR ENERGY TRADER procedure are i n the results section. THYROID STIMULATING Routine 08/23/1997 7:40 AM Re sults for this HORMONE SENIOR ENERGY TRADER procedure are i n the results section. LIPID PANEL AND Routine 08/23/1997 7:40 AM Result s for this DIRECT LDL(IF NEEDED) SENIOR ENERGY TRADER proced ure are in the results section. HEMOGLOBIN, BLOOD Routine 08/23/1997 7:40 AM Resu lts for this SENIOR ENERGY TRADER procedure are i n the results section. ANATOMICAL PATH-C Routine 08/17/1997 2:02 PM Resu lts for this SENIOR ENERGY TRADER procedure are i n the results section. URINALYSIS COMPLETE Routine 07/18/1997 8:45 AM Re sults for this SENIOR ENERGY TRADER procedure are i n the results section. documented in this encounter Results (ABNORMAL) Herpes Simplex Rapid (01/17/1998 1:14 PM CDT) [facility] gist Method Time Signature Herpes simplex SEE TEXT HP CONVERSION Culture (A) Comment: Patient: DANIELLE PRATT Culture, Herpes simplex @ ? Collected: ??[id number] ??[id number] Source: ENDOCERV ?Processed: ??[id number] ??1314 Final Report ------ ?[id number] ??[id number] Herpes simplex type 1 isolated Performed at [facility] PRINTED TO [facility].01-19-98 AO @ = Herpes Culture Performed at ??[facility], [address], ?[facility] [address] Specimen (Source) Anatomical Collection Method Collection Time Re ceived Time Location / / Volume Laterality 01/17/1998 1:14 PM CDT Aron Barros MD LAB_1 Performing Organization Address City/State/ZIP Code Phon e Number HP CONVERSION Sexually Transmitted Disease Probe (01/17/1998 1:14 PM CDT) [facility] Method Time Signature Sexually SEE TEXT HP CONVERSION Transmitted Disease Probe Comment: Patient: DANIELLE PRATT Sexually Trans Disease Probe @ ?Collected: ??[id number] ??[id number] Source: ENDOCERV ?Processed: ??[id number] ??[id number] Final Report ------ ?[id number] ??1409 Negative for Chlamydia trachomatis by DN A probe Negative for Neisseria gonorrhoeae by DN A probe @ = Sexually Trans Disease Probe Perform ed at ??[address] [facility] ?[place] [address] Specimen (Source) Anatomical Collection Method Collection Time Re ceived Time Location / / Volume Laterality 01/17/1998 1:14 PM CDT Aron Barros MD LAB_1 Performing Organization Address City/[facility] Code Phon e Number HP CONVERSION (ABNORMAL) Wet Prep [facility] (01/17/1998 11:45 AM CDT) [facility] Method Time [facility] Wet [facility] ? No normal HP CONVERSION [facility] Wet Prep Negative No normal HP CONVERSION Trich [facility] Wet Prep WBC Moderate No normal HP CONVERSION [facility] Wet Prep Moderate No normal HP CONVERSION Bacteria [facility] Wet Prep Clue Negative No normal HP CONVERSION Cells [facility] Wet Prep Positive (A) No normal HP CONVERSION Yeast [facility] Wet Prep Negative No normal HP CONVERSION Amine [facility] Specimen (Source) Anatomical Collection Method Collection Time Re ceived Time Location / / Volume Laterality 01/17/1998 11:45 AM CDT Aron Fior Barros LAB_1 Performing Organization Address [facility] Phon e Number HP CONVERSION MM Mammogram [...] RAD ARACELI Hemoglobin, Blood (08/31/1997 1:19 PM SENIOR ENERGY TRADER) P athologist Signature Hemoglobin 12.9 11.8 - 15.5 HP CONVERSION gm/dL Specimen (Source) Anatomical Collection Method Collection Time Re ceived Time Location / / Volume Laterality 08/31/1997 1:19 PM SENIOR ENERGY TRADER Trav Proctor LAB_1 Performing Organization Address [facility] Phon e Number HP CONVERSION Hemoglobin, Blood (08/23/1997 7:40 AM SENIOR ENERGY TRADER) P athologist Signature Hemoglobin 13.2 11.8 - 15.5 HP CONVERSION gm/dL Specimen (Source) Anatomical Collection Method Collection Time Re ceived Time Location / / Volume Laterality 08/23/1997 7:40 AM SENIOR ENERGY TRADER Trav Proctor LAB_1 Performing Organization Address City/State/ZIP Code Phon e Number HP CONVERSION (ABNORMAL) Lipid Panel and Direct LDL(If Needed) (08/23/1997 7:40 AM SENIOR ENERGY TRADER) Patholo gist Method Time Signature Cholesterol 222 [...] / / Volume Laterality 08/23/1997 7:40 AM SENIOR ENERGY TRADER Trav Proctor LAB_1 Performing Organization Address City/[facility]/ZIP Code Phon e Number HP CONVERSION Thyroid Stimulating Hormone (08/23/1997 7:40 AM SENIOR ENERGY TRADER) athologist Signature Thyroid 1.32 0.20 - HP CONVERSION Stimulating 5.50 Hormone mIU/mL Specimen (Source) Anatomical Collection Method Collection Time Re ceived Time Location / / Volume Laterality 08/23/1997 7:40 AM SENIOR ENERGY TRADER Trav Proctor LAB_1 Performing Organization Address City/[facility]/ZIP Code Phon e Number HP CONVERSION Glucose (08/23/1997 7:40 AM SENIOR ENERGY TRADER) P athologist Signature Lab Glucose 90 60 - 110 HP CONVERSION mg/dL Specimen (Source) Anatomical Collection Method Collection Time Re ceived Time Location / / Volume Laterality 08/23/1997 7:40 AM SENIOR ENERGY TRADER Trav Proctor LAB_1 Performing Organization Address City/State/ZIP Code Phon e Number HP CONVERSION Anatomical Path-C (08/17/1997 2:02 PM SENIOR ENERGY TRADER) P athologist Signature PAP Smear SEE TEXT No normal HP CONVERSION range Comment: Patient: DANIELLE PRATT ? CERVICAL CYTOLOGY REPORT Pathology # ??[id number] ?Date Obtained: ? Date Received: LMP: ?07-28-96 CLINICAL HIST CERVICAL, VAGINAL SMEAR SPECIMEN ADEQUACY: ?? Satisfactory. ENDOCERVICAL CELLS: ??Present. CYTOLOGIC IMPRESSION: Within Normal Limits (Negative). Verified 08/22/97 by: ??SD ? (electronic signature) Specimen (Source) Anatomical Collection Method Collection Time Re ceived Time Location / / Volume Laterality 08/17/1997 2:02 PM SENIOR ENERGY TRADER Trav Proctor LAB_1 Performing Organization Address City/State/[facility] Phon e Number HP CONVERSION (ABNORMAL) Urinalysis Complete (07/18/1997 8:45 AM SENIOR ENERGY TRADER) [facility] gist Method Time Signature Glucose, Negative Neg-Trac HP CONVERSION Qualitative U Protein Urine Negative Neg-Trac HP CONVERSION Ketones Trace (A) Negative HP CONVERSION U BILI Negative Negative HP CONVERSION U Specific 1.020 1.005 - 25 HP CONVERSION Orange Blood Urine Negative Negative HP CONVERSION pH [...] / / Volume Laterality 07/18/1997 8:45 AM SENIOR ENERGY TRADER Swati Loja MD LAB_1 Performing Organization Address [facility] Phon e Number HP CONVERSION documented in this encounter Visit Diagnoses Not on filedocumented in this encounter Care Teams Biodiesel Production Associate Relationship Specialty Start Date End Date Unassigned, Provider PCP - General 02/23/01 09/20/[address] [place] [address] documented as of this encounter
--- OUTSIDE RECORDS SUMMARY | 2022-05-18 00:06 | XMS_ITS | Encounter Summary ---
:1955 Author Organization [facility] Address [address] [place] [address] Care Team Providers Name Role Phone Unassigned, Provider Primary Care Provider Unavailable Encounter Details Date Type Department Care Team Description 10/19/2003 PN Conversion Only [facility] [place], [address] [facility] RANJAN GONZÁLES [place], [place] [address] Social History Tobacco Use Types Packs/Day Years [...] 2212 Note Time: 10/19/03 0001 Status: Signed Assistant Research Scientist: JACINTO Butler (Nurse Practitioner) NAME: DANIELLE ROBB MR: [id number] ACCT: [id number] VISIT: [id number] DICTATING CLINICIAN: NEIL SU NP JOB: [id number] CLINIC PROGRESS NOTE DATE OF VISIT: 10/19/2003 [...] has had it treated with cryotherapy previous. BAS:[id number] C: 10/20/03 12:26 DOCUMENT: [id number] documented in this encounter Plan of Treatment Not on filedocumented as of this encounter Visit Diagnoses Not on filedocumented in this encounter Care Teams Physician Coding Specialist Relationship Specialty Start Date End Date Unassigned, Provider PCP - General 02/23/01 09/20/[address] [place] [address] documented as of this encounter
--- OUTSIDE RECORDS SUMMARY | 2022-05-18 00:06 | XMS_ITS | Encounter Summary ---
:1955 Author Organization [facility] Address [address] [address] Care Team Providers Name Role Phone Unassigned, Provider Primary Care Provider Unavailable Encounter Details Date Type Department Care Team Description 03/29/2006 Office Visit [facility] [place] [address] [place] [address] [place], [place] [phone] Social History Tobacco Use Types Packs/Day Years [...] signed by Vargas Ambriz MD at 03/29/06 0636 Author: Vargas Ambriz MD Service: (none) Author Type: (none) Filed: 09/28/10 1458 Note Time: 03/29/06 0001 Status: Signed Block Captain: Vargas Ambriz MD (Physician) SUBJECTIVE: 50-year-old female [...] filedocumented in this encounter Care Teams Lead Java Developer Architect Relationship Specialty Start Date End Date Unassigned, Provider PCP - General 02/23/01 09/20/[address] [place] [address] documented as of this encounter
--- OUTSIDE RECORDS SUMMARY | 2022-05-18 00:06 | XMS_ITS | Encounter Summary ---
:1955 Author Organization [facility] Address [address] [address] Care Team Providers Name Role Phone Unassigned, Provider Primary Care Provider Unavailable Encounter Details Date Type Department Care Team Description 10/09/2010 PN Conversion Only CONVERSION CONVERSION Trav Ahmadi MD [address] [place] [address] Social History Tobacco Use Types Packs/Day Years Used Date Smoking Tobacco: Never Assessed Sex Assigned at Date Recorded Not on file documented as of this encounter Plan of Treatment Not on filedocumented as of this encounter Visit Diagnoses Not on filedocumented in this encounter Care Teams Slide Machine Tender Relationship Specialty Start Date End Date Unassigned, Provider PCP - General 02/23/01 09/20/18 [address] [place] [address] documented as of this encounter
--- OUTSIDE RECORDS SUMMARY | 2022-05-18 00:06 | XMS_ITS | Encounter Summary ---
:1955 Author Organization [facility] Address [address] [place] [address] Care Team Providers Name Role Phone Unassigned, Provider Primary Care Provider Unavailable Encounter Details Date Type Department Care Team Description 03/29/2006 PN Conversion Only [place] [address] [place] [address] Social History Tobacco Use Types Packs/Day Years Used Date Smoking Tobacco: Never Assessed Sex Assigned at Date Recorded Not on file documented as of this encounter Plan of Treatment Not on filedocumented as of this encounter Visit Diagnoses Not on filedocumented in this encounter Care Teams Dial Printer Relationship Specialty Start Date End Date Unassigned, Provider PCP - General 02/23/01 09/20/18 [address] [place] [address] documented as of this encounter
--- OUTSIDE RECORDS SUMMARY | 2022-05-18 00:06 | XMS_ITS | Encounter Summary ---
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
--- NOTE | 2022-05-18 00:09 | ED.ANXIETY ---
HPI - Anxiety General Date Seen: 05/18/22 Chief Complaint: High Blood Pressure Stated Complaint: blood pressure 197/99 over 100, shaking Time Seen by Provider: 05/17/22 22:49 Source: patient and family Mode of arrival: ambulatory Limitations: no limitations History of Present Illness HPI narrative: Patient is a 66-year-old female who was seen with her , she has been taking her blood pressure it was elevated, was recently here in the emergency room 2 days ago. That note is reviewed, full workup was done at that time, she was placed on lisinopril, she has been taking her blood pressures in tonight spiked to 190 on 80, she noted that she was shaking, in her arms and her legs, feeling very anxious, and thought she should be seen. She does have a history of chest pain dating back 4-6 weeks, her workup 2 days ago was negative, she feels overall better rate now when I am seeing her, but feels still little bit anxious. complaint: anxiety Severity: mild Related Data Home Medications Medication Instructions Recorded Confirmed aspirin 81 mg tablet,delayed 81 mg PO DAILY 12/20/21 05/17/22 release cholecalciferol (vitamin D3) 50 2,000 unit PO DAILY 12/20/21 05/17/22 mcg (2,000 unit) capsule phenylephrine HCl 1 % nasal spray 1 spray intranasal Q8H PRN 12/20/21 05/17/22 ([address]) simvastatin 10 mg tablet 10 mg PO .5XWEEKLY 12/20/21 05/17/22 Previous Rx's Medication Instructions Recorded estradiol 0.025 mg/24 hr 0.025 patch transdermal .2X/Week 12/20/21 semiweekly transdermal patch #12 patches estradiol 10 mcg vaginal tablet 10 mcg vaginal 3XW #36 tabs 12/31/21 lisinopril 10 mg tablet 10 mg PO DAILY #30 tabs 05/14/22 Allergies Allergy/AdvReac Type Severity Reaction Status Date / Time No Known Allergies Allergy Unknown Verified 05/17/22 23:04 Review of Systems Status of ROS: Reports: 10 or more systems reviewed and unremarkable except as noted in History and below [facility] Medical History Carotid artery plaque Esophageal dysmotility IBS (irritable bowel syndrome) ELEONORA (stress urinary incontinence, female) Vitamin D deficiency Surgical History History of appendectomy (2008) History of hysterectomy (1997) History of partial thyroidectomy (2009) History of repair of left rotator cuff (2003) Family History Father Coronary artery disease Diabetes High blood pressure Hyperlipidemia Paternal Grandfather Coronary artery disease Paternal Grandmother Coronary artery disease Mother Osteoporosis Social History Smoking Status: Never smoker How often do you have a drink containing alcohol: never AUDIT-C Alcohol total score: 0 Non-prescribed substance use: denies use service: No Exam Narrative: Exam Narrative: Patient is peaking normally, problem with slurring words, oriented x3. Head eyes ears nose and throat exam show equal pupils, no scleral icterus, extraocular muscles are normal, no facial droop, speech is normal, trachea normal and midline. Thyroid normal midline palpable not enlarged. Chest shows symmetrical rise bilaterally, normal auscultation with no wheezes, no increased work of breathing, no overt bruising or lesions seen, no tenderness is noted on auscultation. Heart sounds normal with no S3-S4 no murmurs clicks or gallops. Abdomen shows no obvious masses or hepatosplenomegaly, no organomegaly, bowel sounds are normal in all quadrants. No tenderness is noted also in all quadrants. Upper and lower extremities show normal power, normal range of motion, pulses are normal, sensations normal, fine motor movements are normal, pelvis is stable to rocking. Cervical spine shows normal range of motion, and palpably not tender. Thoracic spine shows normal range of motion, and palpably not tender, lumbar spine shows no tenderness to palpation percussion and is otherwise normal range of motion. Skin shows no rashes, petechiae or eccymosis. She seems anxious in the room, Const: Vital Signs, click to edit/add: Vital Signs - 24 hr 05/17/22 23:02 05/18/22 00:06 Temperature 98.2 F 98.2 F Pulse Rate [Right Pulse Oximeter] 90 85 Respiratory Rate 18 16 Blood Pressure [Ri ght Upper Arm] 140/83 H 125/78 Pulse Oximetry 99 99 Oxygen Delivery Me thod Room Air Room Air Course Course Hospital Course: I explained to her that we can do a whole workup again, with troponins and neck, this does lease seems like she had a panic attack, she declined the workup, I would recommend a little bit of Ativan, which significantly helped her, and reassured her. I will have her follow up with her primary care physician, I would strongly suggest she follow-up with her primary care physician, and likely to fulfill the workup get a stress echo. Starting on some omeprazole would also be helpful, Vital Signs Vital signs: Initial Vital Signs Temperature 98.2 F 05/17/22 23:02 Temperature Source Temporal Artery Scan 05/17/22 23:02 Pulse Rate 90 05/17/22 23:02 Respiratory Rate 18 05/17/22 23:02 Blood Pressure 140/83 H 05/17/22 23:02 Blood Pressure Mean 102 05/17/22 23:02 Blood Pressure Position Sitting 05/17/22 23:02 Pulse Oximetry 99 05/17/22 23:02 Oxygen Delivery Method 05/17/22 23:02 Vital Signs Temperature 98.2 F 05/17/22 23:02 Pulse Rate 90 05/17/22 23:02 Respiratory Rate 18 05/17/22 23:02 Blood Pressure 140/83 H 05/17/22 23:02 Pulse Oximetry 99 05/17/22 23:02 Oxygen Delivery Method 05/17/22 23:02 Temperature 98.2 F 05/18/22 00:06 Pulse Rate 85 05/18/22 00:06 Respiratory Rate 16 05/18/22 00:06 Blood Pressure 125/78 05/18/22 00:06 Pulse Oximetry 99 05/18/22 00:06 Oxygen Delivery Method 05/18/22 00:06 MDM - Anxiety Differential Diagnosis Differential diagnosis: Likely hyperventilation, panic disorder and acute anxiety Medical Records Attestation: I reviewed the patient's medical records. Lab Data Attestation: I reviewed the patient's lab results. Discharge Plan Discharge Clinical Impression: Panic attack, Hypertension, Anxiety Patient Disposition: Home w/ Parent or Adult Condition: Stable Instructions: Anxiety (ED), Panic Attack (ED) Additional Instructions: Like we discussed I think this is a panic attack/anxiety causing your elevated blood pressure, follow-up with Aleta Boland and discussed, consideration of possibly starting some omeprazole, which is an acid reducing medication, this can also help the chest discomfort her describing, as this happened to me also. 20 mg a day, for the next 3 weeks, know that it takes a while to start working, really no bad side effects with this, and cheapest at [employer]. I would however recommend a stress echo as an outpatient, Prescriptions: No Action cholecalciferol (vitamin D3) 50 mcg (2,000 unit) capsule 2,000 unit PO DAILY aspirin 81 mg tablet,delayed release (DR/EC) 81 [address] PO DAILY [address] 1 % spray,non-aerosol 1 spray intranasal Q8H PRN simvastatin 10 mg tablet 10 mg PO .5XWEEKLY estradiol 0.025 mg/24 hr patch semiweekly 0.025 patch transdermal .2X/Week Qty: 12 4RF estradiol 10 mcg tablet 10 mcg vaginal 3XW Qty: 36 0RF lisinopril 10 mg tablet 10 mg PO DAILY Qty: 30 0RF Follow Up/Referrals: Mariaelena Boland MD [Primary Care Provider] - Stand Alone Forms: [employer] Info Instructions
== END 2022-05-18 00:11 | disposition home or self-care (01) ==
LOC: ED 05-18
PROVIDERS: Emergency Provider Family Medicine; PCP Internal Medicine
DX: F41.0 Panic disorder [episodic paroxysmal anxiety] (principal); I10 Essential (primary) hypertension
CPT/HCPCS: 99283; 99284; A9270

== ENCOUNTER 2022-10-08 17:27 | Outpatient (CLI) | payer BC, SELFPAY ==
--- OUTSIDE RECORDS SUMMARY | 2022-10-08 17:29 | XMS_ITS | Continuity of Care Document ---
Author Name Unknown Organization [facility] Address [address] [address] [place] [address] Phone Care Team Providers Care Distillery Worker Name Role Phone Garrison Vargas MD, Darci Glover Unavailabl e Allergies, Adverse Reactions, Alerts Substance Reaction Status Criticality No Known Allergies Active No Inform ation No Known Drug Allergies Active No I nformation Medications Medication Instructions Dosage Effective Dates (start - stop) Status Comments RepHresh vaginal gel - Active PROBIOTIC (unknown strength) take 1 by Oral route every day Not Available - Active simvastatin 10 mg tablet take 1 tablet by oral route every day in the evening 10 MG - Active Vitamin D3 25 mcg (1,000 unit) capsule take 1 by Oral route every day 1 - Active aspirin 81 mg tablet,delayed release take 1 tablet by oral route every day 81 MG - Active Divigel 0.25 mg/0.25 gram (0.1 %) transdermal gel packet apply 1 packet by topical route every day to upper thigh - Active Procedures Procedure Date Established Level 3 Offic/outpt E&m Estab Low-mod 2 Established Level 3 Established Level 3 Ugi Endo; W/insrt Guide Wire Ugi Endo; W/bx 1/mx Level Iv-surg Path Gross/micro 21 New Level 4 or 45-59 min Colonoscopy Flex; Dx (feb Advance Directives Directive Yes / No Effective Date File Name No Information Encounters Encounter Description Practice Location Reason(s) For Visit Diagnoses Date Provider Providers Copied on Encounter [facility], [address] [address], [place], [id number], [place] tel:[phone] [facility] No Information 3 Garrison Bejarano. [address] [facility] [address], [place], [id number], [place]. tel:[phone] Established Level 3 [facility] [place], [address] [address], [place], [id number], [place] tel:[phone] [facility] GI Symptoms or Concerns (chief complaint) Bloating symptom 2 Deon Gutierrez. [address] [place] [address], [address], [id number], [place]. tel:[phone] Referring Provider: Referral Self. [facility] [place], [address] [address], [place], [id number], [place] tel:[phone] [facility] No Information 2 Garrison Bejarano. [address] [facility] [address], [place], [id number], [place]. tel:[phone] Offic/outpt E&m Estab Low-mod [facility] [place], [address] [address], [place], [id number], [place] tel:[phone] [facility] GI Symptoms or Concerns (chief complaint) Bloating symptom 2 Deon Gutierrez. [address] [place] [address], [address], [id number], [place]. tel:[phone] Referring Provider: Referral Self. [facility] [place], [address] [address], [place], [id number], [place] tel:[phone] [facility] No Information 2 Deon Gutierrez. [address] [facility] [address] [place] [address], [id number], [place]. tel:[phone] Referring Provider: Referral Self. Established Level 3 [facility], [address] [address], [place], [place], [id number], [place] tel:[phone] [facility] Comment (chief complaint) Bloating symptom Sep- 1 Deon Gutierrez. [address] [facility], [address], [id number], [place]. tel:[phone] Referring Provider: Referral Self. Established Level 3 [facility], [address] [address], [place], [id number], [place] tel:[phone] [facility] GI Symptoms or Concerns (chief complaint) Globus sensationBloa ting symptomNeck discomfort 1 Deon Gutierrez. [address] [facility] [address], [place], [id number], [place]. tel:[phone] Referring Provider: Referral Self. [facility], [address] [address], [place], [place], [id number], [place] tel:[phone] [facility] Esophageal dysphagiaCerv icalgiaDyspha keon, unspecifiedCe rvicalgia 1 Bharat Lucio. [address] [facility] [address], [place], [id number], [place]. tel:[phone] Referring Provider: Referral Self. New Level 4 or 45-59 min [facility], [address] [address], [place], [place], [id number], [place] tel:[phone] [facility] Comment (chief complaint) Neck painChange in bowel movement 0 Deon Gutierrez. [address] [facility] [address], [place], [id number], [place]. tel:[phone] Referring Provider: Darrius Leos MD, [address] [place], [address]. tel:[phone] [facility], [address] [address], [place], [id number], [place] tel:[phone] [facility] No Information 0 Deon Gutierrez. [address] [facility], [place], [place], [id number], [place]. tel:[phone] [facility], [address] [address], [place], [place], [id number], [place] tel:[phone] [facility] No Information 0 Shavonne Arana. [address] [facility], [place], [place], [id number], [place]. tel:[phone] [facility], [address] [address], [place], [place], [id number], [place] tel:[phone] [place] [facility] Colon Cancer screening 6 No Information Referring Provider: Eldon Romero, [address] [place], [address]. tel:[phone] Family History Family Member Type Diagnosis Age At Onset Daughter Problem (finding) Alive and well Son Problem (finding) Crohn's disease Mother Problem (finding) alzheimer's disease Father Problem (finding) hypertension Father Problem (finding) High cholesterol Father Problem (finding) coronary arterioscleros is Immunizations Vaccine Date Status Comments influenza, high-dose seasona l, quadrivalent, .7mL dose, preservative free administered Note: [facility] bi-direct ional interface ; Source: Other Registry SARS-COV-2 (COVID-19) vaccin e, mRNA, spike protein, LNP, bivalent booster, preservative free, 30 mcg/0.3 mL dose, dillan-sucrose formulation administered Note: [facility] bi-d irectional interface ; Source: Other Registry Pneumovax administered Note: [facility] bi-d irectional interface ; Source: Other Registry influenza, high-dose seasona l, quadrivalent, .7mL dose, preservative free administered Note: [facility] bi-direct ional interface ; Source: Other Registry Prevnar 13 administered Note: [facility] bi-d irectional interface ; Source: Other Registry SARS-COV-2 (COVID-19) vaccin e, mRNA, spike protein, LNP, preservative free, 30 mcg/0.3mL dose administered Note: [facility] bi-direct ional interface ; Source: Other Registry SARS-COV-2 (COVID-19) vaccin e, mRNA, spike protein, LNP, preservative free, 30 mcg/0.3mL dose administered Note: [facility] bi-direct ional interface ; Source: Other Registry Afluria Qd administered Note: [facility] bi-directional interface ; Source: Other Registry Afluria Qd administered Note: [facility] bi-directional interface ; Source: Other Registry zoster vaccine recombinant administered N ote: [facility] bi-directional interface ; Source: Other Registry zoster vaccine recombinant administered N ote: [facility] bi-directional interface ; Source: Other Registry Seasonal, quadrivalent, recombinant, injectable influenza vaccine, preservative free administered Note: [facility] bi-direct ional interface ; Source: Other Registry Afluria Qd administered Note: [facility] bi-directional interface ; Source: Other Registry Afluria Qd administered Note: [facility] bi-directional interface ; Source: Other Registry Influenza, injectable, Madin [place] Canine Kidney, preservative free, quadrivalent administered Note: [facility] bi- directional interface ; Source: Other Registry Afluria Qd administered Note: [facility] bi-directional interface ; Source: Other Registry Afluria Qd administered Note: [facility] bi-directional interface ; Source: Other Registry zoster vaccine, live administered Note: [facility] bi-directional interface ; Source: Other Registry diphtheria and tetanus toxoi ds, adsorbed for pediatric use administered Note: [facility] bi -directional interface ; Source: Other Registry Payers Payer name Insurance type Covered republican ID Authoriza tion(s) [facility] [id number] Social History Type Description Quantity Date Captured Comments Alcohol Use Details Unknown Caffeine Use Details Unknown Tobacco Use Status No Information Smoking Status No Information Sex Female Chief Complaint And Reason For Visit No Information Reason For Referral Reason For Referral No Information Plan Of Treatment Date Type Action Status Referral Ordered: EGD Appointment date/timeframe: 07/07/2020 ordered History Of Present Illness Encounter Date Complaint History Of Prese nt Illness GI Symptoms or Concerns Danielle Waldrop is seen today in followup.By [...] years. This was done locally in the [facility]. She otherwise feels well. GI Symptoms or Concerns Danielle is seen today in followup.By history, the patient is a 66-year-old woman that had been seen in September of last year. 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 She has been following the FODMAP diet variably. Overall, however, she feels that she is 60 to 70% better. She still has some gas that is bothersome for her, but otherwise feels well.Her history is reviewed. Medically, she has been treated for arthritis, hypertension, and hyperlipidemia. She is not a smoker or a drinker. She is now retired, having worked at a [employer]. Her family history was noted to be unremarkable.On exam now, she appears in no acute distress with stable vital signs. She does not have jaundice or pa Comment Danielle is leon d today for a followup visit.Before beginning she verified she was in a safe place. She was alone in her car (not driving) and gave consent for this to be done over the phone. By history she is a 65-year-old woman status post partial hysterectomy with hyperlipidemia, who we are seeing because her gas and bloating symptoms are similar to that in the past. She describes the gas and bloating in the upper abdomen as well as to the left of the umbilicus. It occurs on a daily basis. Usually bowel movement seems to help, the bowel movements themselves have been variable.With these symptoms, she had seen Dr. Nicholson for upper endoscopy within the last few years. This was negative. In addition, she had a colonoscopy performed in [place] in 2017 that she relates was negative. Her symptoms however continue the bloating, can occur during the day or at [...] history, the patient is a 65-year-old woman that had previously been seen in May. At that time, she had had symptoms of neck discomfort and was felt to be globus. She had been evaluated by ENT and these records have been reviewed. She has had a CAT scan, ENT examination all of which have failed to reveal abnormality other than a mild sinus infection.Subsequent to her visit, she underwent endoscopy by Dr. Nicholson. The endoscopy itself appeared normal other than a small hiatal hernia. A 51-Thai dilation was performed. Biopsies were done as well. Biopsies have been reviewed and they showed no evidence of eosinophilic esophagitis or reflux disease. The patient is seen today in followup.There has been no other change in her allergies, meds, medical history since being seen last.The patient's review of systems does renuka Comment Danielle is leon d today for a televisit. Initially, patient had been scheduled for a virtual visit; however, she describes herself is not being technically savvy and subsequently, this was switched to a telephone call. Prior to beginning, she gave consent for this to be done over the phone. She verified she was in a safe place alone and able to talk.By history, the patient is a 65-year-old woman whose main complaint is that of a lump in her neck. She feels the discomfort on the left side of her neck at the base of her throat. It seems to ache when she eats. In addition, she has a sense that food is hesitating through this area. These symptoms have been present for over 2 years.With this, she most recently been seen by ENT. No abnormality had been detected on palpation or examination. I note that a barium study performed in 2018 for similar symptoms showed mild esophageal dysmotility, but it was otherwise normal. No mention of a Zenker's or diverticulum was seen.De Functional Status Date Functional Assessmen t No Information Instructions Date Instruction Additional Infor jory Hiatal Hernia Related to Esoph ageal dysphagia Assessments Type Assessment Date No Information Patient Care Teams Name Effective Dates (start - stop) Status Members No Information
== END 2022-10-08 17:28 | disposition home or self-care (01) ==
LOC: NFLDREF 17:28
PROVIDERS: PCP Internal Medicine; Visit Provider Registered Nurse
DX: N94.9 Unspecified condition associated with female genital organs and menstrual cycle (principal)
CPT/HCPCS: 87252

== ENCOUNTER 2022-11-05 08:27 | Outpatient (CLI) | payer BC, SELFPAY | END 2022-11-05 08:28 | disposition home or self-care (01) | PROVIDERS: PCP Internal Medicine; Visit Provider Internal Medicine | DX: E78.5 Hyperlipidemia, unspecified (principal); R53.83 Other fatigue; M85.80 Other specified disorders of bone density and structure, unspecified site | CPT/HCPCS: 80061; 82306; 84443 ==

== ENCOUNTER 2023-06-27 12:52 | Outpatient (CLI) | payer BC, SELFPAY ==
--- OUTSIDE RECORDS SUMMARY | 2023-06-30 10:34 | XMS_ITS | Encounter Summary ---
Author Name Unknown Organization [facility] Address [address] [place] [address] Care Team Providers Care Instrumentation And Controls Designer Name Role Phone Eldon Conway MD Primary Care Provider Mariaelena Boland MD Primary Care Provider Encounter Details Date Type Department Care Team (Late st Contact Info) Description 08/19/2003 [facility] [id number] [place] [phone] [place] [address] [place], [place] [id number] DIAGNOSIS NOT YET DEFINED (Primary Dx) Social History Tobacco Use Types Packs/Day Years Used Date Smoking Tobacco: Never Smokeless Tobacco: Never Alcohol Use Standard Drinks/Week Comments Yes 0 (1 standard drink = 0.6 oz pur e alcohol) socially/rare Sex and Gender Information Value Date Recorded Sex Assigned at Not on file Gender Identity Not on file Sexual Orientation Not on file documented as of this encounter Plan of Treatment Not on file documented as of this encounter Visit Diagnoses Diagnosis DIAGNOSIS NOT YET DEFINED- Primary documented in this encounter Care Teams Instrumentation And Controls Designer Relationship Specialty Start [place] [address] [place], [place] [id number] PCP - General 07/24/01 02/15/18 Mariaelena Boland MD [facility] [address] [place] [address] PCP - General Internal Medicine 02/16/18 documented as of this encounter
--- OUTSIDE RECORDS SUMMARY | 2023-06-30 10:34 | XMS_ITS | Referral Summary ---
Author Name Unknown Organization [facility] Address [address] [place] [address] Care Team Providers Care Mock Up Maker Name Role Phone Mariaelena Boland MD Primary Care Provider [phone] Allergies Active Allergy Reactions Criticality Noted Date Comments No Known Drug Allergy 08/02/2010 Seasonal Allergies 01/31/2003 Medications Medication Sig Dispensed Refills Start Date End Date Status [id number] Nature's Bounty Calcium Plus D - 600mg/500IU. ONE Softgel cap daily. 0 07/10/2010 Active Multiple Vitamin (MULTIVITAMIN) per tablet Take 1 tablet by mouth daily. 100 tablet 12 08/02/2010 Active Agency-3 Fatty Acids 1200 MG capsule Take 1 capsule by mouth daily. 180 capsule 12 08/02/2010 Active aspirin 81 MG chewable tablet Take 1 tablet by mouth daily. 90 tablet 3 07/20/2010 Active Coenzyme Q10 (COQ10) 200 MG CAPS Take by mouth. 0 08/15/2010 Active azithromycin (ZITHROMAX) 250 MG tabletIndications:Ac jaleel maxillary sinusitis Two tablets first day, then one tablet daily for four days 6 tablet 0 10/22/2010 Active pravastatin (PRAVACHOL) 20 MG tabletIndications:Hy perlipidemia LDL goal <160 Take 1 tablet by mouth daily. 30 tablet 3 10/22/2010 Active Active Problems Problem Noted Date Diagnosed Date Advanced directives, counseling/discussion 10/22 Seasonal allergic rhinitis 10/22/2010 Urine, incontinence, stress female 08/02/2010 Hyperlipidemia LDL goal <160 08/02/2010 Thyroid nodule 11/28/2009 Other symptoms referable to back 09/14/2007 Nonallopathic lesion of sacral region 09/14/2007 Overview: Problem list name updated by automated process. Provider to review Nonallopathic lesion of lower extremities 2007 Overview: Problem list name updated by automated process. Provider to review Pain in joint, pelvic region and thigh 8 Resolved Problems Problem Noted Date Diagnosed Date Resolved Date CARDIOVASCULAR SCREENING; LD L GOAL LESS THAN 130 04/08/2010 08/02/2010 Immunizations Name Administration Dates Next Due COVID-19 Monovalent 18+ (Moderna) 12/29/2020, Influenza (High Dose) 3 nicho nt vaccine 02/15/2021 Influenza Vaccine 18-64 (Flublok) 2019,03/16/2019,03/12/2018,2016 Pneumo Conj 13-V (2010&after) 02/13/2021 Pneumococcal 23 valent 10/25/2021 TD,PF 7+ (Tenivac) 12/23/2001 Zoster recombinant adjuvante d (SHINGRIX) 11/19/2019,06/14/2019,02/01/2016 Social History Tobacco Use Types Packs/Day Years Used Date Smoking Tobacco: Never Smokeless Tobacco: Never Alcohol Use Standard Drinks/Week Comments Yes 0 (1 standard drink = 0.6 oz pur e alcohol) socially/rare Adolescent Education Answer Date Record ed Getting School Help Needed Not on file 03/16 Sex and Gender Information Value Date Recorded Sex Assigned at Not on file Gender Identity Not on file Sexual Orientation Not on file Last Filed Vital Signs Vital Sign Reading Time Taken Comments Blood Pressure 112/74 10/22/2010 8:37 AM CDT Pulse 81 10/22/2010 8:37 AM CDT Temperature 36.8 ??C (98.3 ??F) 10/22/2010 8:37 AM CD T Respiratory Rate 12 09/04/2010 1:41 PM CDT Oxygen Saturation 97% 10/22/2010 8:37 AM CDT Inhaled Oxygen Concentration - - Weight 64 kg (141 lb) 10/22/2010 8:37 AM CDT Height 157.5 cm (5' 2) 10/22/2010 8:37 AM CDT Body Mass Index 25.79 10/22/2010 8:37 AM CDT Plan of Treatment Not on file Care Teams Mock Up Maker Relationship Specialty Start Date End Date Mariaelena Boland MD [facility] [address] [place] [address] PCP - General Internal Medicine 02/16/18
--- OUTSIDE RECORDS SUMMARY | 2023-06-30 10:34 | XMS_ITS | Encounter Summary ---
Author Name Unknown Organization [facility] Address [address] [place] [address] Care Team Providers Care Controlled Area Checker Name Role Phone Mariaelena Boland MD Primary Care Provider Encounter Details Date Type Department Care Team (Latest Contact Info) Description 07/24/2022 Travel Social History Tobacco Use Types Packs/Day Years Used Date Smoking Tobacco: Never Smokeless Tobacco: Never Alcohol Use Standard Drinks/Week Comments Yes 0 (1 standard drink = 0.6 oz pur e alcohol) socially/rare Sex and Gender Information Value Date Recorded Sex Assigned at Not on file Gender Identity Not on file Sexual Orientation Not on file COVID-19 Exposure Response Date Recorded In the last 10 days, have yo u been in contact with someone who was confirmed or suspected to have Coronavirus/COVID-19? No / Unsure 07/24/2022 10:18 AM LOG CHAIN WORKER documented as of this encounter Plan of Treatment Not on file documented as of this encounter Visit Diagnoses Not on filedocumented in this encounter Care Teams Controlled Area Checker Relationship Specialty Start Date End Date Mariaelena Boland MD [facility] - [address] [address] PCP - General Internal Medicine 02/16/18 documented as of this encounter
--- OUTSIDE RECORDS SUMMARY | 2023-06-30 10:34 | XMS_ITS | Encounter Summary ---
Author Name Unknown Organization [facility] Address [address] [place] [address] Care Team Providers Care Power Cutting Machine Operator Name Role Phone Mariaelena Boland MD Primary Care Provider Reason for Referral * CV Testing (Routine) - Closed Specialty Diagnoses / Procedures Referred By Contac t Referred To Contact Diagnoses Atypical chest pain Procedures Echocardiogram Exercise Stress ZZHC DOPPLER ECHO PULSED, F/U OR LIMITED ZZHC DOPPLER ECHO COLOR FLOW VELOCITY MAP ZZHC ECHO HEART XTHORACIC, STRESS/REST ZZHC ECHO TRANSTHORACIC, STRESS/REST W CONTRAST ZZHC ECHO TRANSTHORACIC, STRESS/REST W/O CONTRAST ZZHC IV PUSH SINGLE, INITIAL SUBSTANCE ZZC INJECTION, PERFLUTREN LIPID MICROSPHERES, PER ML ZZHC STATISTIC IV PUSH SINGLE INITIAL SUBSTANCE IA DOPPLER ECHO PULSED, F/U OR LIMITED IA DOPPLER ECHO COLOR FLOW VELOCITY MAP IA ECHO HEART XTHORACIC, STRESS/REST IA INJECTION, PERFLUTREN LIPID MICROSPHERES, PER ML IA IV PUSH SINGLE, INITIAL SUBSTANCE IA ECHO HEART XTHORACIC, STRESS/REST IA ECHO HEART XTHORACIC, STRESS/REST HC DOPPLER ECHO PULSED, F/U OR LIMITED HC DOPPLER ECHO COLOR FLOW VELOCITY MAP HC IV PUSH SINGLE, INITIAL SUBSTANCE HC STATISTIC IV PUSH SINGLE INITIAL SUBSTANCE HC ECHO TRANSTHORACIC, STRESS/REST W CONTRAST HC ECHO TRANSTHORACIC, STRESS/REST W/O CONTRAST Mariaelena Boland MD [facility] [address] [place] [address] Referral ID Status Reason Start Date Expiration Date Visits Re quested Visits Authorized [id number] Closed 07/15/2022 07/15/2023 1 1 D DEVELOPMENT CONSULTANT Reason for Visit * CV Testing (Routine) - Closed Specialty Diagnoses / Procedures Referred By Douglas t Referred To Contact Diagnoses Atypical chest pain Procedures Echocardiogram Exercise Stress ZZHC DOPPLER ECHO PULSED, F/U OR LIMITED ZZHC DOPPLER ECHO COLOR FLOW VELOCITY MAP ZZHC ECHO HEART XTHORACIC, STRESS/REST ZZHC ECHO TRANSTHORACIC, STRESS/REST W CONTRAST ZZHC ECHO TRANSTHORACIC, STRESS/REST W/O CONTRAST ZZHC IV PUSH SINGLE, INITIAL SUBSTANCE ZZC INJECTION, PERFLUTREN LIPID MICROSPHERES, PER ML ZZHC STATISTIC IV PUSH SINGLE INITIAL SUBSTANCE IA DOPPLER ECHO PULSED, F/U OR LIMITED IA DOPPLER ECHO COLOR FLOW VELOCITY MAP IA ECHO HEART XTHORACIC, STRESS/REST IA INJECTION, PERFLUTREN LIPID MICROSPHERES, PER ML IA IV PUSH SINGLE, INITIAL SUBSTANCE IA ECHO HEART XTHORACIC, STRESS/REST IA ECHO HEART XTHORACIC, STRESS/REST HC DOPPLER ECHO PULSED, F/U OR LIMITED HC DOPPLER ECHO COLOR FLOW VELOCITY MAP HC IV PUSH SINGLE, INITIAL SUBSTANCE HC STATISTIC IV PUSH SINGLE INITIAL SUBSTANCE HC ECHO TRANSTHORACIC, STRESS/REST W CONTRAST HC ECHO TRANSTHORACIC, STRESS/REST W/O CONTRAST Mariaelena Boland MD [address] [address] Referral ID Status Reason Start Date Expiration Date Visits Re quested Visits Authorized [id number] Closed 07/15/2022 07/15/2023 1 1 Encounter Details Date Type Department Care Team (Late st Contact Info) Description 07/24/2022 10:21 AM CHILD DEVELOPMENT CONSULTANT - 07/24/2022 11:59 PM CHILD DEVELOPMENT CONSULTANT Hospital Encounter [facility] [address] [place] [address] Mariaelena Boland MD [address] [address] Atypical chest pain Discharge Disposition: Home or Self Care Social History Tobacco Use Types Packs/Day Years [...] Coronavirus/COVID-19? No / Unsure 07/24/2022 10:18 AM CHILD DEVELOPMENT CONSULTANT documented as of this encounter Medications at Time of Discharge Medication Sig Dispensed Refills Start Date End Date aspirin 81 MG chewable tablet Take 1 tablet by mouth daily. 90 tablet 3 07/20/2010 azithromycin (ZITHROMAX) 250 MG tabletIndications:Acute maxillary sinusitis Two tablets first day, then one tablet daily for four days 6 tablet 0 10/22/2010 Coenzyme Q10 (COQ10) 200 MG CAPS Take by mouth. 0 08/15/2010 Multiple Vitamin (MULTIVITAMIN) per tablet Take 1 tablet by mouth daily. 100 tablet 12 08/02/2010 [place]-3 Fatty Acids 1200 MG capsule Take 1 capsule by mouth daily. 180 capsule 12 08/02/2010 [id number] Nature's Bounty Calcium Plus D - 600mg/500IU. ONE Softgel cap daily. 0 07/10/2010 pravastatin (PRAVACHOL) 20 MG tabletIndications:Hyper lipidemia LDL goal <160 Take 1 tablet by mouth daily. 30 tablet 3 10/22/2010 documented as of this encounter Plan of Treatment Not on file documented as of this encounter Procedures Procedure Name Priority Date/Time Associated Diagnosis Comments ECHO EXERCISE STRESS TEST Routine 07/24/2022 11:13 AM CHILD DEVELOPMENT CONSULTANT Atypical chest pain documented in this encounter Results * ECHO EXERCISE STRESS TEST (07/24/2022 11:13 AM CHILD DEVELOPMENT CONSULTANT) Anatomical Region Laterality Modality Echocardiography 07/24/2022 10:4 0 AM CHILD DEVELOPMENT CONSULTANT Narrative 07/24/2022 11:48 AM CHILD DEVELOPMENT CONSULTANT [id number]^LADARIUS^MARIAELENA [facility] Echocardi[facility] [address] [place] [address] Name: DANIELLE ROBB : 1955 Study Date: 07/24/2022 10:40 AM Age: 67 yrs Gender: Female Patient Location: [facility] Reason For Study: Atypical chest pain History: Chest Pain Ordering Physician: MARIAELENA BOLAND Referring Physician: MARIAELENA BOLAND Performed By: Romelia Samson BSA: 1.5 m2 Height: 61 in Weight: 119 lb HR: 79 BP: 126/80 mmHg Procedure Stress Echo Complete. Interpretation Summary 1. Above average exercise capacity, 101% max HR achieved. 2. The patient exhibited no chest pain during exercise. This was a normal stress EKG with no evidence of stress-induced ischemia. 3. Rest echo: Normal left ventricular function and wall motion at rest. The visual ejection fraction is estimated at 55-60%. 4. Stress echo: This was a normal stress echocardiogram with no evidence of stress-induced ischemia. The visual ejection fraction is 65-70%. No previous stress for comparison. Stress The patient exercised 10:30. RPP [id number]. This study was stopped as the patient achieved an adequate exercise effort for a diagnostic study. There was a normal BP response to exercise. The patient exhibited no chest pain during exercise. Target Heart Rate was achieved. The Bearden treadmill score was low risk ( >5 Bearden score). This was a normal stress EKG with no evidence of stress-induced ischemia. This was a normal stress echocardiogram with no evidence of stress-induced ischemia. The visual ejection fraction is 65-70%. Baseline Resting ECG is normal. The patient is in normal sinus rhythm. Normal left ventricular function and wall motion at rest. The visual ejection fraction is estimated at 55-60%. Stress Results ? Protocol: ??Candido ?Maximum Predicted HR: ?? 153 bpm ? Target HR: 130 bpm ?% Maximum Predicted HR: 101 % ?Stage ??DurationHeart Rate ??BP ? Comment ? (mm:ss) ?? (bpm) ? Stage 1 ?? 3:00 ? 108 ?140/76 ? Stage 2 ?? 3:00 ? 127 ?154/80 ? Stage 3 ?? 3:00 ? 139 ?158/80 ? Stage 4 ?? 1:30 ? 155 ?/ ?? Bearden Treadmill Score: 10.5 (Low Risk) ?RecoveryR ??5:00 ?96 ?124/70FAC: Above Average ? Stress Duration: ?? 10:30 mm:ss * ?Recovery Time: 5:00 mm:ss ? Maximum Stress HR: 155 bpm * ?METS: ?13 Mitral Valve There is trace mitral regurgitation. Tricuspid Valve The tricuspid valve is normal in structure and function. Aortic Valve The aortic valve is normal in structure and function. Report approved by: Steve Ashby 07/24/2022 11:48 AM Procedure Note Sumit Perez MD - 07/24/2022 [id number]^HEL^MARIAELENA [facility] Echocardiography [facility] [address] [place] [address] Name: DANIELLE ROBB : 1955 Study Date: 07/24/2022 10:40 AM Age: 67 yrs Gender: Female Patient Location: [facility] Reason For Study: Atypical chest pain History: Chest Pain Ordering Physician: MARIAELENA BOLAND Referring Physician: MARIAELENA BOLAND Performed By: Romelia Samson BSA: 1.5 m2 Height: 61 in Weight: 119 lb HR: 79 BP: 126/80 mmHg Procedure Stress Echo Complete. Interpretation Summary 1. Above average exercise capacity, 101% max HR achieved. 2. The patient exhibited no chest pain during exercise. This was anormal stress EKG with no evidence of stress-induced ischemia. 3. Rest echo: Normal left ventricular function and wall motion at rest.The visual ejection fraction is estimated at 55-60%. 4. Stress echo: This was a normal stress echocardiogram with no evidenceof stress-induced ischemia. The visual ejection fraction is 65-70%. No previous stress for comparison. Stress The patient exercised 10:30. RPP [id number]. This study was stopped as the patient achieved an adequate exercise effortfor a diagnostic study. There was a normal BP response to exercise. The patient exhibited no chest pain during exercise. Target Heart Rate was achieved. The Bearden treadmill score was low risk ( >5 Bearden score). This was a normal stress EKG with no evidence of stress-inducedischemia. This was a normal stress echocardiogram with no evidence ofstress-induced ischemia. The visual ejection fraction is 65-70%. Baseline Resting ECG is normal. The patient is in normal sinus rhythm. Normal left ventricular function and wall motion at rest. The visual ejection fraction is estimated at 55-60%. Stress Results Protocol: Candido Maximum Predicted HR: 153 bpm Target HR: 130 bpm % Maximum Predicted HR: 101 % Stage DurationHeart Rate BP Comment (mm:ss) (bpm) Stage 1 3:00 108 140/76 Stage 2 3:00 127 154/80 Stage 3 3:00 139 158/80 Stage 4 1:30 155 / Bearden Treadmill Score: 10.5 (LowRisk) RecoveryR 5:00 96 124/70FAC: Above Average Stress Duration: 10:30 mm:ss * Recovery Time: 5:00 mm:ss Maximum Stress HR: 155 bpm * METS: 13 Mitral Valve There is trace mitral regurgitation. Tricuspid Valve The tricuspid valve is normal in structure and function. Aortic Valve The aortic valve is normal in structure and function. Report approved by: Steve Ashby 07/24/2022 11:48 AM Mariaelena Boland MD CV ECHO ORDERABLES documented in this encounter Visit Diagnoses Diagnosis Atypical chest pain Other chest pain documented in this encounter Care Teams Power Cutting Machine Operator Relationship Specialty Start Date End Date Mariaelena Boland MD [facility] [address] [place] [address] PCP - General Internal Medicine 02/16/18 documented as of this encounter
--- OUTSIDE RECORDS SUMMARY | 2023-06-30 10:34 | XMS_ITS | Encounter Summary ---
Author Name Unknown Organization [facility] Address [address] [place] [address] Care Team Providers Care Helicopter Dispatcher Name Role Phone Mariaelena Boland MD Primary Care Provider [phone] Encounter Details Date Type Department Care Team (Late st Contact Info) Description 07/15/2022 Orders Only [facility] [address] [place] [address] Mariaelena Boland MD [facility] [address] [place] [address] Social History Tobacco Use Types Packs/Day Years [...] on filedocumented in this encounter Care Teams Helicopter Dispatcher Relationship Specialty Start Date End Date Mariaelena Boland MD [facility] [address] [place] [address] PCP - General Internal Medicine 02/16/18 documented as of this encounter
--- OUTSIDE RECORDS SUMMARY | 2023-06-30 10:34 | XMS_ITS | Clinical Summary ---
Author Name Unknown Organization [facility] Address [place], [place] [address] Care Team Providers Care Management Lecturer Name Role Phone Mariaelena Boland MD Primary Care Provider [phone] Social History Tobacco Use Types Packs/Day Years Used Date Smoking Tobacco: Never Assessed Sex and Gender Information Value Date Recorded Sex Assigned at Not on file Gender Identity Not on file Sexual Orientation Not on file Obstetrics History Plan of [...] series for age 50+ (1 of 2) 05/23/20 05 DEXA/DXA scan for age 65+ 2020 Pneumococcal series for age 65+ (1 of 1 - PCV) 020 Influenza for age 65+ 02/07/2023 Care Teams Management Lecturer Relationship Specialty Start Date End Date Mariaelena Boland MD [address] [place] [address] PCP - General Internal Medicine 02/05/17
--- OUTSIDE RECORDS SUMMARY | 2023-06-30 10:34 | XMS_ITS | Clinical Summary ---
Author Name Unknown Organization [place] Address [address] [place] [address] Care Team Providers Care Raimann Machine Operator Name Role Phone Mariaelena Boland MD Primary Care Provider [phone] Allergies Active Allergy Reactions Criticality Noted Date Comments No Known Drug Allergy 08/02/2010 Seasonal Allergies 01/31/2003 Medications Medication Sig Dispensed Refills Start Date End Date Status [id number] Nature's Bounty Calcium Plus D - 600mg/500IU. ONE Softgel cap daily. 0 07/10/2010 Active Multiple Vitamin (MULTIVITAMIN) per tablet Take 1 tablet by mouth daily. 100 tablet 12 08/02/2010 Active [place]-3 Fatty Acids 1200 MG capsule Take 1 [...] 12/23/2001 Zoster recombinant adjuvante d (SHINGRIX) 11/19/2019,06/14/2019,02/01/2016 Family History Medical History Relation Comments Diabetes Father Heart Disease Father heart attac k at 76 Alzheimer Disease Mother Depression Mother Osteoporosis Mother Heart Disease Paternal Grandfather heart attac k early 50's Relation Status Comments Brother Alive [...] OF HM ORDERS 1955 CT COLONOGRAPHY 1955 FIT 1955 FLEX SIG 1955 sDNA (Cologuard) 1955 HEPATITIS C SCREENING 1973 DTAP/TDAP/TD IMMUNIZATION (1 - Tdap) 12/24/2001 12/23/2001 MAMMO SCREENING 08/02/2012 08/02/2010, 07/11, 09/06/2008, Additional history exists RSV VACCINE ( & 60+) (1 - 1-dose 60+ series) 2015 COLONOSCOPY 09/18/2015 09/17/2005 COLORECTAL CANCER SCREENING 09/18/2015 ADVANCE CARE PLANNING 10/23/2015 10/22/2010, 011 LIPID 10/23/2015 10/22/2010, 07/11, 11/24/2009, Additional history exists DEXA 02/02/2018 02/02/2003 FALL RISK ASSESSMENT 2020 MEDICARE ANNUAL WELLNESS VISIT 2020 08/02/2010, 04/14/2008, 07/08/2006, Additional history exists COVID-19 Vaccine (2022- season) 2023 03/19/2022, 12/29/2020, 12/29/2020, Additional history exists INFLUENZA VACCINE (#1) 2023 , 02/15/2021, 02/15/2021, Additional history exists PHQ-2 (once per calendar year) 2023 PAP Discontinued 08/02/2010, 11/0 11/2007, 07/08/2006, Additional history exists ZOSTER IMMUNIZATION Completed 11/19/2019, 06/14/2019, 02/01/2016, Additional history exists Pneumococcal Vaccine: 65+ Years Completed 10/25/2021, 02/13/2021 HPV IMMUNIZATION Aged Out No longer e ligible based on patient's age to complete this topic IPV IMMUNIZATION Aged Out No longer e ligible based on patient's age to complete this topic MENINGITIS IMMUNIZATION Aged Out No l onger eligible based on patient's age to complete this topic RSV MONOCLONAL ANTIBODY Aged Out No l onger eligible based on patient's age to complete this topic Care Teams Raimann Machine Operator Relationship Specialty Start Date End Date Mariaelena Boland MD [facility] [address] [place] [address] PCP - General Internal Medicine 02/16/18
--- OUTSIDE RECORDS SUMMARY | 2023-06-30 10:34 | XMS_ITS | Encounter Summary ---
Author Name Unknown Organization [facility] Address [address] [place] [address] Care Team Providers Care Staffing Clerk Name Role Phone Mariaelena Boland MD Primary Care Provider Encounter Details Date Type Department Care Team (Late st Contact Info) Description 07/15/2022 Orders Only [facility] [address] [place] [address] Mariaelena Boland MD [facility] [address] [place] [address] Social History Tobacco Use Types Packs/Day Years [...] on filedocumented in this encounter Care Teams Staffing Clerk Relationship Specialty Start Date End Date Mariaelena Boland MD [facility] [address] [place] [address] PCP - General Internal Medicine 02/16/18 documented as of this encounter
--- OUTSIDE RECORDS SUMMARY | 2023-06-30 10:34 | XMS_ITS | Clinical Summary ---
Author Name Unknown Organization [facility] Address [address], [place] [address] Care Team Providers Care Lean Six Sigma Senior Specialist Name Role Phone Mariaelena Boland MD Primary Care Provider [phone] Source Comments You are receiving this document as you are listed as the primary care provider,follow-up provider, or the patient has been referred to you for consultation.This is in compliance with the Medicare and[facility] EHR Incentive Program,which states Providers who transition their patient to another setting of careor provider of care or refers their patient to another provider of care shouldprovide summary care record for each transition of care or referral. [facility] Allergies No known active allergies Medications Medication Sig Dispensed Refills Start Date End Date Status unknown medication Indications: PN: 0 03/29/2006 Active unknown medication Indications: PN: 0 12/02/2008 Active aspirin, enteric-coated 81 MG enteric coated tablet Take by mouth daily. 0 Active simvastatin (ZOCOR) 10 MG tablet Take 10 mg by mouth every other day. 0 Active Immunizations Name Administration Dates Next Due DT Ped 08/07/1987 Social History Tobacco Use Types Packs/Day Years Used Date Smoking Tobacco: Never Sex and Gender Information Value Date Recorded Sex Assigned at Not on file Gender Identity Not on file Sexual Orientation Not on file Last Filed Vital Signs Vital Sign Reading Time Taken Comments Blood Pressure 143/95 08/30/2021 2:49 PM CDT Pulse 81 08/30/2021 2:49 PM CDT Temperature 37.1 ??C (98.8 ??F) 12/02/2008 7:31 PM CD T C: 37.1 C Respiratory Rate 20 12/02/2008 7:31 PM CDT Oxygen Saturation - - Inhaled Oxygen Concentration - - Weight - - Height - - Body Mass Index - - Plan of Treatment Health Maintenance Due Date Last Done Comments Colon Cancer Screening Plan Due 1955 Hep C Screening (Preventive Services) 1955 Mammogram 1955 COVID-19 Vaccine (#1) 1955 Adult Preventive Visit 1973 DTaP/Tdap/Td (2 - Tdap) 08/06/1997 08/07/1987 Cholesterol 08/23/2002 08/23/1997 Dexa 2020 Pneumococcal 65+ Yrs (2 - PPSV23 or PCV20) 02/13/2022 02/13/2021 Influenza (#1) 2023 02/15/2021, 03/09, 03/16/2019, Additional history exists Zoster/Shingles Completed 11/19/2019, 11/2019, 02/01/2016 HepA Aged Out No longer eligi ble based on patient's age to complete this topic HepB Aged Out No longer eligi ble based on patient's age to complete this topic Hib Aged Out No longer eligi ble based on patient's age to complete this topic IPV (Polio) Aged Out No longer eligi ble based on patient's age to complete this topic MCV4 Aged Out No longer eligi ble based on patient's age to complete this topic Care Teams Lean Six Sigma Senior Specialist Relationship Specialty Start Date End Date Mariaelena Boland MD [address] [place] [address] PCP - General Internal Medicine 09/21/18
== END 2023-06-27 12:53 | disposition home or self-care (01) ==
LOC: NFLDREF 06-30 10:30
PROVIDERS: PCP Internal Medicine; Referring Provider Internal Medicine; Visit Provider Registered Nurse
DX: R31.9 Hematuria, unspecified (principal)
CPT/HCPCS: 87086

== ENCOUNTER 2023-09-04 14:41 | Outpatient (CLI) | payer BC, SELFPAY ==
--- NOTE | 2023-09-04 15:00 | MM_ITS ---
Patient: CAITY ROBB Facility:?[facility] Patient ID:?[id number] Site Patient ID:?[id number]. Site :?[id number] Study:?XRay-Breast Bilateral 3D W/CAD-09/04/2023 3:33:00 PM Ordering Physician:TAMEKA Final Report: BILATERAL SCREENING MAMMOGRAM WITH COMPUTER-AIDED DETECTION AND TOMOSYNTHESIS TECHNIQUE: CC and MLO views were obtained. These mammographic images have been obtained using full-field digital technique. These mammographic images were interpreted with the benefit of computer-aided detection. Breast tomosynthesis was used in this interpretation. COMPARISON FILM: 01/25/22, 01/16/21, 07/22/19. FINDINGS: The breasts are almost entirely fatty. IMPRESSION: There is no radiographic evidence for malignancy. ASSESSMENT: BI-RADS Category 1: Negative RECOMMENDATION: Routine screening mammogram in 1 year. A lay language report of this examination will be provided to the patient. JOSE LOPEZ M.D. Diagnostic Radiologist [email or web address] MED/jason D& Transcribed: 1:[address]/Dictated by: Jose Lopez MD @ 09/10/2023 11:59:00 AM Signed by:?Jose Lopez MD @09/10/2023 3:07:15 PM (Electronic Signature)
== END 2023-09-04 14:42 | disposition home or self-care (01) ==
LOC: MAMMO 14:42
PROVIDERS: PCP Internal Medicine; Visit Provider Registered Nurse
DX: Z12.31 Encounter for screening mammogram for malignant neoplasm of breast (principal)
CPT/HCPCS: 77063; 77067

== ENCOUNTER 2023-11-06 08:50 | Outpatient (CLI) | payer BC, SELFPAY ==
--- OUTSIDE RECORDS SUMMARY | 2023-11-25 15:29 | XMS_ITS | Encounter Summary ---
Author Organization [place] Address [address] [place] [address] 188[address] Care Team Providers Care Hydrology Professor Name Role Phone Mariaelena Boland MD Primary Care Provider Kait Wiley MD Unavailable Apple Jung APRN DOCUMENTATION ANALYST Unavailable + [phone] Kait Wiley MD Unavailable Encounter Details Date Type Department Care Team (Late st Contact Info) Description 07/15/[address] [facility] [address] [place] [address] Mariaelena Boland MD [facility] [address] [place] [address] Social History Tobacco Use Types Packs/Day Years [...] on filedocumented in this encounter Care Teams Hydrology Professor Relationship Specialty Start Date End Date Mariaelena Boland MD [facility] [address] [place] [address] PCP - General Internal Medicine 02/16/18 Kait Wiley MD [address] [place] [address] [id number] Urology 07/10/23 Apple Jung APRN DOCUMENTATION ANALYST [facility] [address] [place] [address] Nurse Practitioner center hole reamer 07/10/23 Kait Wiley MD [address] [place] [address] [phone] Assigned Surgical Provider 08/01/23 documented as of this encounter
--- OUTSIDE RECORDS SUMMARY | 2023-11-25 15:29 | XMS_ITS | Referral Summary ---
Author Organization [place] Address [address] [place] [address] Care Team Providers Care Cruller Maker Machine Name Role Phone Mariaelena Boland MD Primary Care Provider Kait Wiley MD Unavailable Apple Jung APRN DENTAL EQUIPMENT INSTALLER AND SERVICER Unavailable [phone] Kait Wiley MD Unavailable Allergies Active Allergy Reactions Criticality Noted Date Comments No Known Drug Allergy 08/02/2010 Seasonal Allergies 01/31/2003 Medications Medication Sig Dispensed Refills Start Date End Date Status [id number] Nature's Bounty Calcium Plus D - 600mg/500IU. ONE Softgel cap daily. 07/10/2010 Active Multiple Vitamin (MULTIVITAMIN) per tablet Take 1 tablet by mouth daily. 100 tablet 12 08/02/2010 Active aspirin 81 MG chewable tablet Take 1 tablet by mouth daily. 90 tablet 3 07/20/2010 Active estradiol (VAGIFEM) 10 MCG TABS vaginal tablet Insert 10 mcg vaginally twice a week* 07/09/2023 Active alendronate (FOSAMAX) 35 MG tablet 35 mg orally every week* 11/05/2022 Active hydrOXYzine HCl (ATARAX) 25 MG tablet Take 25 mg by mouth 3 times daily as needed for anxiety 06/07/2023 Active simvastatin (ZOCOR) 10 MG tablet Take 10 mg by mouth daily Active valACYclovir (VALTREX) 500 MG tablet Take 1 tablet by mouth 2 times daily 06/30/2023 Active Ascorbic Acid (VITAMIN C) 500 MG CAPS Active cyanocobalamin (VITAMIN B-12) 500 MCG SUBL sublingual tablet Place 500 mcg under the tongue daily Active Active Problems Problem Noted Date Diagnosed Date Seasonal allergic rhinitis 10/22/2010 Urine, incontinence, stress [...] Problem Noted Date Diagnosed Date Resolved Date Advanced directives, counseling/discussion 10/22/2010 11/24/2023 CARDIOVASCULAR SCREENING; LD L GOAL LESS THAN [...] Date Smoking Tobacco: Never Smokeless Tobacco: Never Tobacco Cessation:Counseling Given: Not Answered Alcohol Use Standard Drinks/Week Comments Yes 0 [...] Sign Reading Time Taken Comments Blood Pressure 143/89 07/18/2023 7:52 AM PHOTOGRAPHER STILL Pulse 89 07/18/2023 7:52 AM PHOTOGRAPHER STILL Temperature 36.6 ??C (97.9 ??F) 07/18/2023 7:52 AM CS T Respiratory Rate 16 07/18/2023 7:52 AM PHOTOGRAPHER STILL Oxygen Saturation 97% 07/18/2023 7:52 AM PHOTOGRAPHER STILL Inhaled Oxygen Concentration - - Weight 55.7 kg (122 lb 14.4 oz) 07/18/2023 7:52 AM PHOTOGRAPHER STILL Height 154.9 cm (5' 1) 07/18/2023 7:52 AM PHOTOGRAPHER STILL Body Mass Index 23.22 07/18/2023 7:52 AM PHOTOGRAPHER STILL Plan of Treatment Not on file Procedures Procedure Name Priority Date/Time Associated Diagnosis Comments LIPID REFLEX TO DIRECT LDL PANEL Routine 10/22/2010 9:10 AM CDT Hyperlipidemia LDL goal <160 COMPREHENSIVE METABOLIC PANEL Routine 08/02/2010 10:11 AM PHOTOGRAPHER STILL Routine physical examination PAP IMAGED THIN LAYER SCREEN Routine 08/02/2010 10:11 AM PHOTOGRAPHER STILL Routine gynecological examination Routine physical examination MA SCREENING DIGITAL BILATERAL Routine 08/02/2010 9:06 AM PHOTOGRAPHER STILL COLONOSCOPY Routine 09/17/2005 DIAGNOSIS NOT YET DEFINED C DEXA, BONE DENSITY, AXIAL SKEL Routine 02/02/2003 4:05 PM CDT Routine Medical Exam from Last 3 Months or Most Recently Relevant to Health Maintenance Results * (ABNORMAL) Lipid panel reflex to direct LDL (10/22/2010 9:10 AM CDT) Cholesterol 253(H) 0 - 200 mg/dL [facility] Comment: LDL Cholesterol is the primary guide to therapy. The NCEP recommends further evaluation of: patients with cholesterol greater than 200 mg/dL if additional risk factors are present, cholesterol greater than 240 mg/dL, triglycerides greater than 150 mg/dL, or HDL less than 40 mg/dL. Triglycerides 120 0 - 150 mg/dL [facility] HDL Cholesterol 72 50 - 110 mg/dL [facility] LDL Cholesterol Calculated 157(H) 0 - 129 mg/dL [facility] Comment: LDL Cholesterol is the primary guide to therapy: LDL-cholesterol goal in high risk patients is <100 mg/dL and in very high risk patients is <70 mg/dL. VLDL-Cholesterol 24 0 - 30 mg/dL [facility] Cholesterol/HDL Ratio 3.5 0.0 - 5.0 [facility] Blood specimen (specimen) 10/22/2010 9:10 AM CDT 10/22/2010 9:12 AM CDT Michelle Goins MD LAB - BLOOD ORD ERABLES [facility] * PAP imaged thin layer screen (08/02/2010 10:11 AM PHOTOGRAPHER STILL) PAP JEFFREY Lewis Report Patient Name: DANIELLE ROBB MR#: [id number] Specimen #: [id number] Collected: 08/02/2010 Received: 08/03/2010 Reported: 08/06/2010 14:37 Ordering Phy(s): MICHELLE GOINS SPECIMEN/STAIN PROCESS: Pap imaged thin layer prep screening (Surepath, FocalPoint with guided screening) ? Pap-Cyto x 1, Reflex HPV x 1 SOURCE: Vaginal Pap imaged thin layer prep screening (Surepath, FocalPoint with guided screening) SPECIMEN ADEQUACY: Satisfactory for evaluation. -Transitional zone component could not be determined due to atrophy. CYTOLOGIC INTERPRETATION: Negative for Intraepithelial Lesion or Malignancy Electronically signed out by: CHEKO Hernandez (ASCP) Processed and screened at [facility] CLINICAL HISTORY: Partial Hysterectomy, Previous normal pap Date of Last Pap: 04/14/08, Papanicolaou Test Limitations: ??Cervical cytology is a screening test with limited sensitivity; regular screening is critical for cancer prevention; Pap tests are primarily effective for the diagnosis/preventi on of squamous cell carcinoma, not adenocarcinomas or other cancers. TESTING LAB LOCATION: [address] ??[address] COLLECTION SITE: Client: ??[facility] Location: [facility] (R) NEDATH Cytologic material (specimen) 08/02/2010 10:11 AM PHOTOGRAPHER STILL 08/03/2010 10:53 AM PHOTOGRAPHER STILL Michelle Goins MD LAB - OPTIME CL INICAL SPECIMEN [facility]ADI * Comprehensive metabolic panel (08/02/2010 10:11 AM PHOTOGRAPHER STILL) Sodium 144 133 - 144 mmol/L [facility] Potassium 4.6 3.4 - 5.3 mmol/L [facility] Chloride 105 94 - 109 mmol/L [facility] Carbon Dioxide 29 20 - 32 mmol/L [facility] Anion Gap 10 6 - 17 mmol/L [facility] Glucose 93 60 - 99 mg/dL [facility] Urea Nitrogen 24 7 - 30 mg/dL [facility] Creatinine 0.77 0.52 - 1.04 mg/dL [facility] Comment:New IDMS-traceable c alibration beginning 10/08/07 GFR Estimate 78 >60 mL/min/1.7 m2 [facility] GFR Estimate If Black >90 >60 mL/min/1.7 m2 [facility] Calcium 9.6 8.5 - 10.4 mg/dL [facility] Bilirubin Total 0.6 0.2 - 1.3 mg/dL [facility] Albumin 4.6 3.3 - 4.9 g/dL [facility] Comment:Reference range conway ged on 03/01/2008. Protein Total 7.7 6.8 - 8.8 g/dL [facility] Comment:As of 07, refer ence range reflects plasma specimen type. Alkaline Phosphatase 71 40 - 150 U/L [facility] ALT 20 0 - 50 U/L [facility] AST 27 0 - 45 U/L [facility] Blood specimen (specimen) 08/02/2010 10:11 AM PHOTOGRAPHER STILL 08/02/2010 10:12 AM PHOTOGRAPHER STILL Michelle Goins MD LAB - BLOOD ORD ERABLES [facility] * Mammo Screening digital (bilat) (08/02/2010 9:06 AM PHOTOGRAPHER STILL) Anatomical Region Laterality Modality Breast Bilateral Other 08/02/2010 9:06 AM PHOTOGRAPHER STILL Impressions 08/06/2010 10:03 AM PHOTOGRAPHER STILL SCREENING MAMMOGRAM, BILATERAL, DIGITAL w/ CAD ??- ??August 02, 2010 ?? BREAST SYMPTOMS: None reported. COMPARISON: 09/06/2008, 09/04/2006. ?? PARENCHYMAL PATTERN: Almost entirely fatty. COMMENTS: No findings of suspicion for malignancy. IMPRESSION: BI-RADS 1, NEGATIVE. Michelle Goins MD IMG MAMMOGRAPHY ORDERABLES * COLONOSCOPY (09/17/2005) 09/17/2005 Eldon Conway MD PROCEDURES * DEXA, BONE DENSITY, AXIAL SKEL (02/02/2003 4:05 PM CDT) Anatomical Region Laterality Modality Bone Mineral Den sity Impressions 02/02/2003 4:05 PM CDT BONE DENSITOMETRY [facility] February 02, 2003 PATIENT: ??Danielle Condon [place] CHART: [id number] : ??1955 AGE: ??47 year old SEX: ??female REFERRING PHYSICIAN: ??Eldon Conway M.D., ?? PROCEDURE: ??Bone density scanning was performed using DEXA technology performed on a DICOM Grid Scanner. ??Reporting is completed in the form of a T-score. ??The T-score represents the standard deviation from peak bone mass based on a young healthy adult. Measurement And Verification Engineer performing scan: ??Janine Rajan REFERENCE T-SCORES: ? Normal ? Greater than -1.0 ? Osteopenia ?-1.0 to -2.5 ? Osteoporosis ?? Less than -2.5 ? RISK FACTORS: ??Perimenopausal, Family history of osteoporosis, history of osteopenia. CURRENT TREATMENT: ?? Calcium with Vitamin D, Estrogen, Fosamax FINDINGS: ? Lumbar Spine (L1-L4): ??T-score 0.03 ? Left Femoral Neck: ??T-score -1.30 ? Comparison is performed to previous DEXA performed on a [employer]Star Scanner on 03/31/02. CURRENT BMD: ??Lumbar Spine: 1.170. ??Femoral Neck: 0.8605. PREVIOUS BMD: Lumbar Spine: 1.083. Femoral Neck: 0.8519. In the interim, allowing for standardization calculations, there is suggestion of a trend towards improvement of the lumbar spine, and no significant change of the femoral neck. IMPRESSION: Osteopenia of the femoral neck Normal lumbar spine bone mineral density. Mery Swain M.D. Electronically signed Eldon Conway MD SPECIAL IMAGING STUD IES from Last 3 Months or Most Recently Relevant to Health Maintenance Care Teams Cruller Maker Machine Relationship Specialty Start Date End Date Mariaelena Boland MD [address] [address] PCP - General Internal Medicine 02/16/18 Kait Wiley MD [address] [place] [address] Urology 07/10/23 Apple Jung APRN DENTAL EQUIPMENT INSTALLER AND SERVICER [facility] [address] [place] [address] Nurse Practitioner director of marketing operations 07/10/23 Kait Wiley MD [address] [place] [id number] Assigned Surgical Provider 08/01/23
--- OUTSIDE RECORDS SUMMARY | 2023-11-25 15:29 | XMS_ITS | Encounter Summary ---
Author Organization [place] Address [address] [place] [address] Care Team Providers Care Food Products Tester Name Role Phone Eldon Conway MD Primary Care Provider Mariaelena Boland MD Primary Care Provider [phone] Kait Wiley MD Unavailable Apple Jung APRN MACHINE OPERATOR HOP PICKER Unavailable [phone] Kait Wiley MD Unavailable Encounter Details Date Type Department Care Team (Late st Contact Info) Description 08/19/2003 [facility] [address] [place] [address] [phone] [place] [address] [place] [address] DIAGNOSIS NOT YET DEFINED (Primary Dx) Social [...] Start Date End [place] [id number] [place] [address] [phone] PCP - General 07/24/01 02/15/18 Mariaelena Boland MD [address] [address] PCP - General Internal Medicine 02/16/18 Kait Wiley MD [address] [place] [address] Urology 07/10/23 Apple Jung APRN MACHINE OPERATOR HOP PICKER [facility] [address] [place] [address] Nurse Practitioner storeperson 07/10/23 Kait Wiley MD [address] [place] [phone] Assigned Surgical Provider 08/01/23 documented as of this encounter
--- OUTSIDE RECORDS SUMMARY | 2023-11-25 15:29 | XMS_ITS | Clinical Summary ---
Author Organization [place] Address [address] [place] [address] Care Team Providers Care Music Composer Name Role Phone Mariaelena Boland MD Primary Care Provider Kait Wiley MD Unavailable Apple Jung APRN MUSEUM DOCENT Unavailable [phone] Kait Wiley MD Unavailable Allergies Active Allergy Reactions Criticality Noted Date Comments No Known Drug Allergy 08/02/2010 Seasonal Allergies 01/31/2003 Medications Medication Sig Dispensed Refills Start Date End Date Status [id number] Nature's Bounty Calcium Plus D - 600mg/500IU. [...] Comments Blood Pressure 143/89 07/18/2023 7:52 AM SHEET MUSIC SALESPERSON Pulse 89 07/18/2023 7:52 AM SHEET MUSIC SALESPERSON Temperature 36.6 ??C (97.9 ??F) 07/18/2023 7:52 AM CS T Respiratory Rate 16 07/18/2023 7:52 AM SHEET MUSIC SALESPERSON Oxygen Saturation 97% 07/18/2023 7:52 AM SHEET MUSIC SALESPERSON Inhaled Oxygen Concentration - - Weight 55.7 kg (122 lb 14.4 oz) 07/18/2023 7:52 AM SHEET MUSIC SALESPERSON Height 154.9 cm (5' 1) 07/18/2023 7:52 AM SHEET MUSIC SALESPERSON Body Mass Index 23.22 07/18/2023 7:52 AM SHEET MUSIC SALESPERSON Plan of Treatment Health Maintenance Due Date Last Done Comments ANNUAL REVIEW OF HM ORDERS 1955 CT COLONOGRAPHY 1955 FIT 1955 FLEX SIG 1955 sDNA (Cologuard) 1955 HEPATITIS C SCREENING 1973 LIPID 10/23/2011 10/22/2010, 07/11, 11/24/2009, Additional history exists MAMMO SCREENING 08/02/2012 08/02/2010, 07/11, 09/06/2008, Additional history exists GLUCOSE 08/02/2013 08/02/2010, 11/0 02/2010, 11/24/2009, Additional history exists RSV VACCINE ( & 60+) (1 - 1-dose 60+ series) 2015 COLONOSCOPY 09/18/2015 09/17/2005 COLORECTAL CANCER SCREENING 09/18/2015 ADVANCE CARE PLANNING 10/23/2015 10/22/2010, 011 DEXA 02/02/2018 02/02/2003 FALL RISK ASSESSMENT 2020 MEDICARE ANNUAL WELLNESS VISIT 2020 08/02/2010, 04/14/2008, 07/08/2006, Additional history exists COVID-19 Vaccine ( season) 2023 03/19/2022, 12/29/2020, 12/29/2020, Additional history exists PHQ-2 (once per calendar year) 2023 DTAP/TDAP/TD IMMUNIZATION (2 - Td or Tdap) 08/08/2032 08/08/2022, 12/23/2001 PAP Discontinued 08/02/2010, 11/0 11/2007, 07/08/2006, Additional history exists ZOSTER IMMUNIZATION Completed 11/19/2019, 06/14/2019, 02/01/2016, Additional history exists Pneumococcal Vaccine: 65+ Years Completed 10/25/2021, 02/13/2021 INFLUENZA VACCINE Completed 04/01/2023, , 02/15/2021, Additional history exists HPV IMMUNIZATION Aged Out No longer e [...] on patient's age to complete this topic Procedures Procedure Name Priority Date/Time Associated Diagnosis Comments LIPID REFLEX TO DIRECT LDL PANEL Routine 10/22/2010 9:10 AM CDT Hyperlipidemia LDL goal <160 COMPREHENSIVE METABOLIC PANEL Routine 08/02/2010 10:11 AM SHEET MUSIC SALESPERSON Routine physical examination PAP IMAGED THIN LAYER SCREEN Routine 08/02/2010 10:11 AM SHEET MUSIC SALESPERSON Routine gynecological examination Routine physical examination MA SCREENING DIGITAL BILATERAL Routine 08/02/2010 9:06 AM SHEET MUSIC SALESPERSON COLONOSCOPY Routine 09/17/2005 DIAGNOSIS NOT YET DEFINED C DEXA, BONE DENSITY, AXIAL SKEL Routine 02/02/2003 4:05 PM CDT Routine Medical Exam from Last 3 Months or Most Recently Relevant to Health Maintenance Results * (ABNORMAL) Lipid panel reflex to direct LDL (10/22/2010 9:10 AM CDT) Cholesterol 253(H) 0 - 200 mg/dL [facility] Comment: LDL Cholesterol is the primary guide to therapy. The NCEP recommends further evaluation of: patients with cholesterol greater than 200 mg/dL if additional risk factors are present, cholesterol greater than 240 mg/dL, triglycerides greater than 150 mg/dL, or HDL less than 40 mg/dL. Triglycerides 120 0 - 150 mg/dL [facility] HDL Cholesterol 72 50 - 110 mg/dL [facility] LDL Cholesterol Calculated 157(H) 0 - 129 mg/dL [facility] Comment: LDL Cholesterol is the primary guide to therapy: LDL-cholesterol goal in high risk patients is <100 mg/dL and in very high risk patients is <70 mg/dL. VLDL-Cholesterol 24 0 - 30 mg/dL [facility] Cholesterol/HDL Ratio 3.5 0.0 - 5.0 [facility] Blood specimen (specimen) 10/22/2010 9:10 AM CDT 10/22/2010 9:12 AM CDT Michelle Goins MD LAB - BLOOD ORD ERABLES [facility] * PAP imaged thin layer screen (08/02/2010 10:11 AM SHEET MUSIC SALESPERSON) PAP JEFFREY Lewis Report Patient Name: DANIELLE ROBB MR#: [id number] Specimen #: [id number] Collected: 08/02/2010 Received: 08/03/2010 Reported: 08/06/2010 14:37 [...] CHEKO Hernandez (ASCP) Processed and screened at [facility] CLINICAL HISTORY: Partial Hysterectomy, Previous normal pap Date of Last Pap: 04/14/08, Papanicolaou Test Limitations: ??Cervical cytology is a screening test with limited sensitivity; regular screening is critical for cancer prevention; Pap tests are primarily effective for the diagnosis/preventi on of squamous cell carcinoma, not adenocarcinomas or other cancers. TESTING LAB LOCATION: [address] [place], [place] ??[address] COLLECTION SITE: Client: ??[facility] Location: CR[facility] (R) COPATH Cytologic material (specimen) 08/02/2010 10:11 AM SHEET MUSIC SALESPERSON 08/03/2010 10:53 AM SHEET MUSIC SALESPERSON Michelle Goins MD LAB - OPTIME CL INICAL SPECIMEN [facility] * Comprehensive metabolic panel (08/02/2010 10:11 AM SHEET MUSIC SALESPERSON) Sodium 144 133 - 144 mmol/L [facility] Potassium 4.6 3.4 - 5.3 mmol/L [facility] Chloride 105 94 - 109 mmol/L [facility] Carbon Dioxide 29 20 - 32 mmol/L [facility] Anion Gap 10 6 - 17 mmol/L [facility] Glucose 93 60 - 99 mg/dL [facility] Urea Nitrogen 24 7 - 30 mg/dL [facility] Creatinine 0.77 0.52 - 1.04 mg/dL [facility] Comment:New IDMS-traceable c alibration beginning 10/08/07 GFR Estimate 78 >60 mL/min/1.7 m2 [facility] GFR Estimate If Black >90 >60 mL/min/1.7 m2 [facility] Calcium 9.6 8.5 - 10.4 mg/dL [facility] Bilirubin Total 0.6 0.2 - 1.3 mg/dL [facility] Albumin 4.6 3.3 - 4.9 g/dL [facility] Comment:Reference range conway ged on 03/01/2008. Protein Total 7.7 6.8 - 8.8 g/dL [facility] Comment:As of 07, refer ence range reflects plasma specimen type. Alkaline Phosphatase 71 40 - 150 U/L [facility] ALT 20 0 - 50 U/L [facility] AST 27 0 - 45 U/L [facility] Blood specimen (specimen) 08/02/2010 10:11 AM SHEET MUSIC SALESPERSON 08/02/2010 10:12 AM SHEET MUSIC SALESPERSON Michelle Goins MD LAB - BLOOD ORD ERABLES [facility] * Mammo Screening digital (bilat) (08/02/2010 9:06 AM SHEET MUSIC SALESPERSON) Anatomical Region Laterality Modality Breast Bilateral Other 08/02/2010 9:06 AM SHEET MUSIC SALESPERSON Impressions 08/06/2010 10:03 AM SHEET MUSIC SALESPERSON SCREENING MAMMOGRAM, BILATERAL, DIGITAL w/ CAD ??- [...] Impressions 02/02/2003 4:05 PM CDT BONE DENSITOMETRY [facility] February 02, 2003 PATIENT: ??Danielle Robb CHART: [id number] : ??1955 AGE: ??47 year old SEX: ??female REFERRING PHYSICIAN: ??Eldon Conway M.D., ??MD PROCEDURE: ??Bone density scanning was performed using DEXA technology performed on a [employer] Scanner. ??Reporting is completed in the form of a T-score. ??The T-score represents the standard deviation from peak bone mass based on a young healthy adult. Community Pharmacist performing scan: ??Janine Rajan REFERENCE T-SCORES: ? [...] performed to previous DEXA performed on a [employer] Scanner on 03/31/02. CURRENT BMD: ??Lumbar Spine: [...] Recently Relevant to Health Maintenance Care Teams Music Composer Relationship Specialty Start Date End Date Mariaelena Boland MD [facility] [address] [place] [address] PCP - General Internal Medicine 02/16/18 Kait Wiley MD [address] [place] [address] [phone] Urology 07/10/23 Apple Jung APRN MUSEUM DOCENT [facility] [address] [place] [phone] Nurse Practitioner venetian blind assembler 07/10/23 Kait Wiley MD [address] [place] [phone] Assigned Surgical Provider 08/01/23
--- OUTSIDE RECORDS SUMMARY | 2023-11-25 15:29 | XMS_ITS | Encounter Summary ---
Author Organization [place] Address [address] [place] [address] Care Team Providers Care Physician Primary Care Sports Medicine Name Role Phone Mariaelena Boland MD Primary Care Provider Kait Wiley MD Unavailable Apple Jung APRN MACHINE ASSEMBLER Unavailable [phone] Kait Wiley MD Unavailable Encounter Details Date Type Department Care Team (Late st Contact Info) Description 07/15/2022 Orders Only [facility] [address] [place] [address] Mariaelena Boland MD [facility] [address] [place] [address] Social History Tobacco Use Types Packs/Day Years [...] filedocumented in this encounter Care Teams Physician Primary Care Sports Medicine Relationship Specialty Start Date End Date Mariaelena Boland MD [facility] [address] [place] [address] PCP - General Internal Medicine 02/16/18 Kait Wiley MD [address] [place] [address] [phone] Urology 07/10/23 Apple Jung APRN MACHINE ASSEMBLER [facility] [address] [place] [phone] Nurse Practitioner historian dramatic arts 07/10/23 Kait Wiley MD [address] [place] [address] [phone] Assigned Surgical Provider 08/01/23 documented as of this encounter
--- OUTSIDE RECORDS SUMMARY | 2023-11-25 15:29 | XMS_ITS | Clinical Summary ---
Author Organization [facility] Address [place], [place] [address] Care Team Providers Care Rework Operator Name Role Phone Mariaelena Boland MD Primary Care Provider [phone]- [phone] Social History Tobacco Use Types Packs/Day Years Used Date Smoking Tobacco: Never Assessed Sex and Gender Information Value Date Recorded Sex Assigned at Not on file Gender Identity Not on file Sexual Orientation Not on file Obstetrics History Plan of Treatment Health Maintenance Due Date Last Done Comments Tdap 1966 Depression screening for age 12+ [...] 65+ (1 of 1 - PCV) 020 COVID-19 vaccine series ( season) 3 Influenza for age 65+ 02/08/2024 Care Teams Rework Operator Relationship Specialty Start Date End Date Mariaelena Boland MD [address] [place] [address] PCP - General Internal Medicine 02/05/17
--- OUTSIDE RECORDS SUMMARY | 2023-11-25 15:29 | XMS_ITS | Clinical Summary ---
[facility] Address [address] [address] Care Team Providers Care Director Of Casino Name Role Phone Mariaelena Boland MD Primary Care Provider [phone]- [phone] Source Comments You are receiving this document as you are listed as the primary care provider,follow-up provider, or the patient has been referred to you for consultation.This is in compliance with the Medicare and[facility] EHR Incentive Program,which states Providers who transition their patient to another setting of careor provider of care or refers their patient to another provider of care shouldprovide summary care record for each transition of care or referral. [facility] Allergies No known active allergies Medications Medication Sig Dispensed Refills Start Date End Date Status unknown medication Indications: PN: 03/29/2006 Active unknown medication Indications: PN: 12/02/2008 Active aspirin, enteric-coated 81 MG enteric coated tablet Take by mouth daily. Active simvastatin (ZOCOR) 10 MG tablet Take 10 mg by mouth every other day. Active Immunizations Name Administration Dates Next Due [...] C Screening (Preventive Services) 1955 Mammogram 1955 Adult Preventive Visit 1973 DTaP/Tdap/Td (2 - Tdap) 08/06/1997 08/07/1987 Cholesterol 08/23/2002 08/23/1997 Dexa 2020 Pneumococcal 65+ Yrs (2 - PPSV23 or PCV20) 02/13/2022 02/13/2021 COVID-19 Vaccine (3 - season) 2023 12/29/2020, 12/01/2020 Influenza (Season Ended) 2024 021, 03/25/2020, 03/16/2019, Additional history exists Zoster/Shingles Completed 11/19/2019, [...] Name Priority Date/Time Associated Diagnosis Comments LIPID PANEL & DIRECT LDL (IF NEEDED) Routine 08/23/1997 7:40 AM GRAIN OPERATIONS MANAGER from Last 3 Months or Most Recently Relevant to Health Maintenance Results * (ABNORMAL) Lipid Panel and Direct LDL(If Needed) (08/23/1997 7:40 AM GRAIN OPERATIONS MANAGER) Cholesterol 222(HH) 125 - 199 mg/dL HP CONVERSION HDL Cholesterol 61 36 - 80 mg/dL HP CONVERSION Cholesterol/HDL Ratio Screen 3.6 No normal range HP CONVERSION Triglycerides 171 0 - 250 mg/dL HP CONVERSION LDL Calculated 127 66 - 129 mg/dL HP CONVERSION 08/23/1997 7:40 AM GRAIN OPERATIONS MANAGER [facility] HP CONVERSION from Last 3 Months or Most Recently Relevant to Health Maintenance Care Teams Director Of Casino Relationship Specialty Start Date End Date Mariaelena Boland MD [address] [place] [address] PCP - General Internal Medicine 09/21/18
== END 2023-11-06 08:51 | disposition home or self-care (01) ==
PROVIDERS: PCP Internal Medicine; Referring Provider Internal Medicine; Visit Provider Internal Medicine
DX: Z00.00 Encounter for general adult medical examination without abnormal findings (principal); E78.5 Hyperlipidemia, unspecified; M85.80 Other specified disorders of bone density and structure, unspecified site; M81.0 Age-related osteoporosis without current pathological fracture
CPT/HCPCS: 80061; 82306

== ENCOUNTER 2024-11-11 08:21 | Outpatient (CLI) | payer BC, SELFPAY | END 2024-11-11 08:22 | disposition home or self-care (01) | PROVIDERS: PCP Internal Medicine; Visit Provider Internal Medicine | DX: E78.5 Hyperlipidemia, unspecified (principal); M85.80 Other specified disorders of bone density and structure, unspecified site | CPT/HCPCS: 80048; 80061; 82306 ==

== ENCOUNTER 2025-04-29 09:30 | Outpatient (CLI) | payer BC, SELFPAY ==
[2025-04-29 16:06] LABS: Chlamydia DNA Amplified* NOT DETECTED (No Detected); GC DNA Amplified* NOT DETECTED (No Detected)
== END 2025-04-29 09:31 | disposition home or self-care (01) ==
PROVIDERS: PCP Internal Medicine; Visit Provider Registered Nurse
DX: N89.8 Other specified noninflammatory disorders of vagina (principal); R53.83 Other fatigue
CPT/HCPCS: 82306; 84443; 87491; 87591

== ENCOUNTER 2025-05-30 11:29 | Outpatient (CLI) | payer BC, SELFPAY ==
--- NOTE | 2025-06-21 11:35 | W.PM.SLEEP ---
Sleep Study Details Details Interpreting Provider: Ramón Date of Sleep Study: 05/30/25 Sleep Study Details: STUDY TYPE:? Home unattended ? BMI:? 23.43 ORDERING PROVIDER:? Ramón INDICATION:? Concern for sleep apnea ? SLEEP SUMMARY:? 220 minutes monitored RESPIRATORY SUMMARY:? AHI 7.1 per CMS guideline, 12.3 per rule 1A Low oxygen 83 5.2% of study oxygen less than 90% Snoring 68.3% PERIODIC LIMB MOVEMENTS OF SLEEP:? Not recorded CARDIAC:? Range 65-109, mean 76.7 beats per minute IMPRESSION:? Mild obstructive sleep apnea RECOMMENDATION: Treatment options include CPAP or dental appliance.
== END 2025-05-30 11:30 | disposition home or self-care (01) ==
LOC: SLEEP 11:30
PROVIDERS: PCP Internal Medicine; Visit Provider Otolaryngology
DX: G47.33 Obstructive sleep apnea (adult) (pediatric) (principal)
CPT/HCPCS: 95806